=== PATIENT | male | born 1950 ===

== ENCOUNTER 2019-02-12 15:48 | Emergency (ER) | payer MEDICARE ==
[2019-02-12 15:53] VITALS: BP 146/75; PULSE 65; RESP 20; TEMP 97.8
--- NOTE | 2019-02-12 17:27 | XR ---
EXAMINATION TYPE: XR Hip Complete RT DATE OF EXAM: 02/12/2019 COMPARISON: NONE HISTORY: Back pain TECHNIQUE: 2 views FINDINGS: I see no fracture nor dislocation. Hip joint space is normal. Sacroiliac joint appears norm al. IMPRESSION: Negative right hip exam.
[2019-02-12] MEDS ORDERED: ACET/COD 300 MG/30 MG STARTER PACK 6 TAB BTL PO STA (17:29)
--- NOTE | 2019-02-12 18:30 | ED ---
Back Pain [facility] - General Chief Complaint: Back Pain/Injury Stated Complaint: back pain Time Seen by Provider: 02/12/19 16:26 Source: patient Limitations: no limitations - History of Present Illness Initial Comments: Patient is a 60-year-old male presents emergency Department with right sacral pain. Patient reports the pain started gradually approximately one month ago. Patient reports the pain originates in the right buttock and radiates posteriorly and anteriorly on the right leg. Patient reports pain is an 8 and is alleviated with rest and exacerbated with ambulation. Patient reports improvement in pain in sitting position and exacerbated with lying. Patient reports that he went to his primary care given Toradol IM and or pill take home. Patient denies any trauma to his lower back or right hip. Patient denies saddle paresthesias or urinary incontinence. Patient denies fevers, night sweats or unexplained recent weight loss. Patient denies nausea, vomiting, abdominal pain, urinary symptoms, headaches chest pain or chest tightness. - Related Data Home Medications Medication Instructions Recorded Confirmed Aspirin EC [Ecotrin Low Dose] 81 mg PO BID 09/12/15 02/12/19 Atorvastatin [Lipitor] 40 mg PO DAILY 09/12/15 02/12/19 Metoprolol Tartrate [Lopressor] 25 mg PO BID 09/12/15 02/12/19 Montelukast [Singulair] 10 mg PO HS 09/12/15 02/12/19 Spironolactone [Aldactone] 25 mg PO QAM 09/12/15 02/12/19 Amiodarone HCl [Cordarone] 100 mg PO BID 10/27/15 02/12/19 Levalbuterol Hfa Inhaler [Xopenex 1 puff INHALATION RT-Q6H PRN 07/17/17 02/12/19 Hfa Inhaler] Levalbuterol Nebulized [Xopenex 1.25 mg INHALATION RT-TID 07/17/17 02/12/19 Nebulized] Sacubitril/Valsartan [Entresto 24 1 tab PO BID 07/17/17 02/12/19 mg-26 mg Tablet] Acetaminophen Tab [Tylenol] 1,000 mg PO Q8H PRN 02/12/19 02/12/19 Ketorolac [Toradol] 10 mg PO Q8HR PRN 02/12/19 02/12/19 Mexiletine [Mexitil] 150 mg PO Q8H 02/12/19 02/12/19 predniSONE 5 mg PO MOWEFR 02/12/19 02/12/19 predniSONE 10 mg PO SUTUTHSA 02/12/19 02/12/19 Previous Rx's Medication Instructions Recorded Furosemide [Lasix] 40 mg PO DAILY #30 tab 07/21/17 Cyclobenzaprine [Flexeril] 5 mg PO TID PRN #15 tablet 02/12/19 Allergies Allergy/AdvReac Type Severity Reaction Status Date / Time acetaminophen [From [place]] Allergy Anaphylaxis Verified 02/12/19 16:48 hydrocodone [From [place]] Allergy Anaphylaxis Verified 02/12/19 16:48 ibuprofen Allergy Anaphylaxis Verified 02/12/19 16:48 Review of Systems ROS Statement: Those systems with pertinent positive or pertinent negative responses have been documented in the HPI. ROS Other: All systems not noted in ROS Statement are negative. Past Medical History Past Medical History: Asthma, COPD, Hyperlipidemia Additional Past Medical History / Comment(s): VTach, nonischemic cardiomyopathy, CHF, organized left ventricular apical clot, previous DVT ablation, asthma requiring intubation twice, BRAIN BLEED WHILE ON BLOOD THINNER RX 2009, cataracts bilaterally History of Any Multi-Drug Resistant Organisms: None Reported Past Surgical History: AICD, EPS, Pacemaker Additional Past Surgical History / Comment(s): 12/07/15 EPS wtih VT ablation. Other surgical hx: BRAIN SURGERY FOLLOWING BLEED. AICD/PACEMAKER, [facility]. generator change, Defibrilator testing Past Anesthesia/Blood Transfusion Reactions: No Reported Reaction Type of Cardiac Device: Permanent Pacemaker, AICD Device Placement Date:: 2005 implanted with gen change 2012 Past Psychological History: No Psychological Hx Reported Smoking Status: Former smoker Past Alcohol Use History: None Reported Past Drug Use History: None Reported - Past Family History Mother Family Medical History: No Reported History Additional Family Medical History / Comment(s): Mother at age 92 yrs. Father Family Medical History: No Reported History Additional Family Medical History / Comment(s): Father is healthy and 95 yrs old. General Exam Limitations: no limitations General appearance: alert, in no apparent distress Head exam: Present: atraumatic, normocephalic, normal inspection Eye exam: Present: normal appearance, PERRL, EOMI Pupils: Present: normal accommodation ENT exam: Present: normal exam, mucous membranes moist Neck exam: Present: normal inspection, full ROM Respiratory exam: Present: normal lung sounds bilaterally Cardiovascular Exam: Present: regular rate, normal rhythm, normal heart sounds GI/Abdominal exam: Present: soft. Absent: tenderness Extremities exam: Present: normal inspection, tenderness (Tenderness to palpation along the right buttock. Pain radiates anteriorly and posteriorly on the right leg with hip flexion.), normal capillary refill, other (+2 dorsalis pedis and posterior tibialis, bilaterally. Positive leg raise test.). Absent: full ROM (Limited due to pain and right leg) Back exam: Present: normal inspection, full ROM Neurological exam: Present: alert, oriented X3 Psychiatric exam: Present: normal affect, normal mood Skin exam: Present: warm, intact, normal color Course Vital Signs 02/12/19 15:50 Temperature 97.8 F Pulse Rate 65 Respiratory 20 Rate Blood Pressure 146/75 O2 Sat by Pulse 99 Oximetry Medical Decision Making - Medical Decision Making Patient is a 60-year-old male presents emergency Department with right sacral pain. X-ray of the right hip is negative for acute fracture or dislocations. Based on physical examination I do not suspect the patient to have any acute lower back pathologies. I gave the patient Tylenol 3 starter pack and after 1 dose he started feeling much better and was able to walk with only mild discomfort. Patient will be discharged with Flexeril. Patient advised to follow-up with orthopedics. Patient advised to return to emergency department if symptoms worsen. Case discussed physician. Disposition Clinical Impression: Low back pain Disposition: HOME SELF-CARE Condition: Stable Instructions (If sedation given, give patient instructions): Acute Low Back Pain (ED) Additional Instructions: Please take prescribed medication as directed. Please return to emergency department if symptoms worsen. Please follow-up with orthopedics. Prescriptions: Cyclobenzaprine [Flexeril] 5 mg PO TID PRN #15 tablet PRN Reason: Muscle Spasm Is patient prescribed a controlled substance at d/c from ED?: No Referrals: Alex Dominguez MD [Primary Care Provider] - 1-2 days Tomy Latham PAC [PHYSICIAN DBA DEVELOPER] - 1-2 days Robert Massey DO [Medical Doctor] - 1-2 days Saturnino Camilo DO [Doctor of Osteopathic Medicine] - 1-2 days Time of Disposition: 18:29
== END 2019-02-12 18:30 | disposition home or self-care (01) ==
LOC: EC 15:48
DX: M54.5 Low back pain (principal); J44.9 Chronic obstructive pulmonary disease, unspecified; E78.5 Hyperlipidemia, unspecified; I50.9 Heart failure, unspecified; Z79.82 Long term (current) use of aspirin; Z79.899 Other long term (current) drug therapy; Z79.51 Long term (current) use of inhaled steroids; Z88.5 Allergy status to narcotic agent; Z88.6 Allergy status to analgesic agent; Z95.0 Presence of cardiac pacemaker; Z86.718 Personal history of other venous thrombosis and embolism; Z87.891 Personal history of nicotine dependence
CPT/HCPCS: 73502; 99283

== ENCOUNTER → 2020-09-12 | Outpatient (CLI) | payer MEDICARE ==
[2020-09-12 14:15] LABS: Basophils % (A) 0 %; Eosinophils % (A) 0 %; HCT 41.5 % (39.0-53.0); HGB 13.7 gm/dL (13.0-17.5); Lymphocytes # (A) 1.4 k/uL (1.0-4.8); Lymphocytes % (A) 14 %; MCH 30.9 pg (25.0-35.0); MCHC 33.2 g/dL (31.0-37.0); MCV 93.3 fL (80.0-100.0); Mean Platelet Volume 8.1; Monocytes # (A) 0.3 k/uL (0-1.0); Monocytes % (A) 3 %; Neutrophils # (A) 8.2 k/uL (1.3-7.7); Neutrophils % (A) 81 %; Platelet Count 169 k/uL (150-450); RBC 4.44 m/uL (4.30-5.90); RDW 13.1 % (11.5-15.5); WBC 10.1 k/uL (3.8-10.6)
[2020-09-12 14:22] LABS: Total Eosinophil Count 40 #EOS/uL (150-300)
== END | disposition home or self-care (01) ==
LOC: LABWHC1 13:39
PROVIDERS: ATTEND Internal Medicine
DX: J45.909 Unspecified asthma, uncomplicated (principal)
CPT/HCPCS: 36415; 82785; 85008; 85025

== ENCOUNTER 2023-01-30 18:08 | Emergency (ER) | payer MEDICARE ==
[2023-01-30] MEDS ORDERED: SODIUM CHLORIDE 0.9% 1,000 ML IV STA (18:45)
--- NOTE | 2023-01-30 18:46 | ED ---
Weakness HPI - General Chief complaint: Recheck/Abnormal Lab/Rx Stated complaint: diarrhea, dizziness - sent by urgent care Time Seen by Provider: 01/30/23 18:45 Source: patient, RN notes reviewed, old records reviewed, Caregiver Mode of arrival: ambulatory Limitations: no limitations - History of Present Illness Initial comments: This is a 72-year-old male who presents today for evaluation of multiple complaints. Patient himself complains of loose bowel movements 3-4 times a day and at times he cannot control as well as. Family states patient is dizzy lightheaded sometimes off-balance. This is definitely worse when he gets from positions of sitting to standing. No travel history no sick contacts no other complaints. Patient denies headache chest pain shortness breath or abdominal pain. No prior history of similar issue MD Complaint: generalized weakness, numbness, tingling -: days(s) Location: generalized Severity: severe Severity scale (1-10): 8 Quality: tingling, numbness Consistency: constant Improves with: none Worsens with: none Context: recent illness, history of similar Associated Symptoms: denies other symptoms - Related Data Home Medications Medication Instructions Recorded Confirmed Aspirin EC [Ecotrin Low Dose] 81 mg PO BID 09/12/15 01/30/23 Atorvastatin [Lipitor] 40 mg PO DAILY 09/12/15 01/30/23 Montelukast [Singulair] 10 mg PO HS 09/12/15 01/30/23 Spironolactone [Aldactone] 25 mg PO DAILY 09/12/15 01/30/23 Amiodarone HCl [Cordarone] 100 mg PO DAILY 10/27/15 01/30/23 Levalbuterol Hfa Inhaler [Xopenex 1 puff INHALATION RT-Q6H PRN 07/17/17 01/30/23 Hfa Inhaler] Levalbuterol Nebulized [Xopenex 1.25 mg INHALATION RT-TID 07/17/17 01/30/23 Nebulized] Sacubitril/Valsartan [Entresto 24 1 tab PO BID 07/17/17 01/30/23 mg-26 mg Tablet] predniSONE 5 mg PO DAILY 02/12/19 01/30/23 Metoprolol Succinate (ER) [Toprol 50 mg PO DAILY 01/30/23 01/30/23 Xl] Mexiletine HCl 200 mg PO Q8H 01/30/23 01/30/23 Previous Rx's Medication Instructions Recorded Furosemide [Lasix] 40 mg PO DAILY #30 tab 07/21/17 Allergies Allergy/AdvReac Type Severity Reaction Status Date / Time acetaminophen [From [place]] Allergy Anaphylaxis Verified 01/30/23 21:43 hydrocodone [From [place]] Allergy Anaphylaxis Verified 01/30/23 21:43 ibuprofen Allergy Anaphylaxis Verified 01/30/23 21:43 Review of Systems ROS Statement: Those systems with pertinent positive or pertinent negative responses have been documented in the HPI. ROS Other: All systems not noted in ROS Statement are negative. Past Medical History Past Medical History: Asthma, COPD, Hyperlipidemia Additional Past Medical History / Comment(s): VTach, nonischemic cardiomyopathy, CHF, organized left ventricular apical clot, previous DVT ablation, asthma requiring intubation twice, BRAIN BLEED WHILE ON BLOOD THINNER RX 2009, c ataracts bilaterally History of Any Multi-Drug Resistant Organisms: None Reported Past Surgical History: AICD, EPS, Pacemaker Additional Past Surgical History / Comment(s): 12/07/15 EPS wtih VT ablation. Other surgical hx: BRAIN SURGERY FOLLOWING BLEED. AICD/PACEMAKER, [facility]. generator change, Defibrilator testing Past Anesthesia/Blood Transfusion Reactions: No Reported Reaction Type of Cardiac Device: Permanent Pacemaker, AICD Device Placement Date:: 2005 implanted with gen change 2012 Past Psychological History: No Psychological Hx Reported Smoking Status: Never smoker Past Alcohol Use History: None Reported Past Drug Use History: None Reported - Past Family History Mother Family Medical History: No Reported History Additional Family Medical History / Comment(s): Mother at age 92 yrs. Father Family Medical History: No Reported History Additional Family Medical History / Comment(s): Father is healthy and 95 yrs old. General Exam Limitations: no limitations General appearance: alert, in no apparent distress Head exam: Present: atraumatic, normocephalic, normal inspection Eye exam: Present: normal appearance, PERRL, EOMI. Absent: scleral icterus, conjunctival injection, periorbital swelling ENT exam: Present: normal exam, mucous membranes moist Neck exam: Present: normal inspection. Absent: tenderness, meningismus, lymphadenopathy Respiratory exam: Present: normal lung sounds bilaterally. Absent: respiratory distress, wheezes, rales, rhonchi, stridor Cardiovascular Exam: Present: regular rate, normal rhythm, normal heart sounds. Absent: systolic murmur, diastolic murmur, rubs, gallop, clicks GI/Abdominal exam: Present: soft, normal bowel sounds. Absent: distended, tenderness, guarding, rebound, rigid Extremities exam: Present: normal inspection, full ROM, normal capillary refill. Absent: tenderness, pedal edema, joint swelling, calf tenderness Back exam: Present: normal inspection Neurological exam: Present: alert, oriented X3, CN II-XII intact Psychiatric exam: Present: normal affect, normal mood Skin exam: Present: warm, dry, intact, normal color. Absent: rash Course Vital Signs 01/30/23 01/30/23 01/30/23 18:28 19:21 19:30 Temperature 98 F Pulse Rate 62 58 L Respiratory 18 16 18 Rate Blood Pressure 108/69 O2 Sat by Pulse 98 98 Oximetry 01/30/23 01/30/23 01/30/23 20:00 20:30 21:00 Temperature Pulse Rate 56 L 55 L Respiratory 12 11 L Rate Blood Pressure 119/65 142/81 O2 Sat by Pulse 99 99 Oximetry 01/30/23 01/30/23 01/30/23 21:30 21:46 21:48 Temperature 98.9 F Pulse Rate 57 L 60 Respiratory 18 14 Rate Blood Pressure 121/76 O2 Sat by Pulse 97 98 Oximetry - Reevaluation(s) Reevaluation #1: 01/31/23 19:51 Medical records reviewed Reevaluation #2: 01/31/23 19:51 Patient symptoms are improving here in the ER with hydration Reevaluation #3: 01/31/23 19:51 Patient informed results questions answered Reevaluation #4: 01/31/23 19:51 Was pt. sent in by a medical professional or institution? @ -no Did you speak to anyone other than the patient for history? @ -Yes patient's daughter is at bedside today patient's diarrhea has been persistent for weeks now and she is concern for upcoming colonoscopy Did you review nursing and triage notes? @ -agree Were old charts reviewed? @ -no Differential Diagnosis? @ -prior EKG interpreted by me (3pts min.)? @ -yes X-rays interpreted by me (1pt min.)? @ -no CT interpreted by me (1pt min.)? @ -yes U/S interpreted by me (1pt. min.)? @ -no What testing was considered but not performed? (CT, X-rays, U/S, labs)? Why? @ -no What meds were considered but not given? Why? @ -no Did you discuss the management of the patient with other professionals? @ -no Did you reconcile home meds? @ -no Was smoking cessation discussed for >3mins.? @ -no Was critical care preformed (if so, how long)? @ -no Were there social determinants of health that impacted care today? How? (Homelessness, low income, unemployed, alcoholism, drug addiction, transportation, low edu. Level, literacy, decrease access to med. care, long-term, rehab)? @ -no Was there de-escalation of care discussed even if they declined? (Discuss DNR or withdrawal of care, Hospice)? @ -no What co-morbidities impacted this encounter? (DM, HTN, Smoking, COPD, CAD, Cancer, CVA, Hep., AIDS, mental health diagnosis, sleep apnea, morbid obesity)? @ -none Was patient admitted / discharged? @ -72 male to the emergency department for evaluation of dizziness weakness lightheadedness, loose bowel movements and otherwise not feeling well. Throat ER stay patient feels improved, asking to be discharged home CT is here because his family him calm. Patient without complaint of headache chest pain shortness breath or abdominal pain. Discharged Undiagnosed new problem with uncertain prognosis? @ -no Drug Therapy requiring intensive monitoring for toxicity (Heparin, Nitro, Insulin, Cardizem)? @ -no Were any procedures done? @ -no Diagnosis/symptom? @ -Vertigo, weakness, dizziness, diarrhea Acute, or Chronic, or Acute on Chronic? @ -Acute Uncomplicated (without systemic symptoms) or Complicated (systemic symptoms)? @ -complicated Side effects of treatment? @ -no Exacerbation, Progression, or Severe Exacerbation] @ -no Poses a threat to life or bodily function? @ -Yes with stroke or CVA Reevaluation #5: 01/31/23 19:52 Differential Dizziness: Benign paroxysmal positional Vertigo, Menieres disease, otitis media, acoustic neuroma, vertebrobasilar insufficiency, cerebellar stroke, encephalitis, hypovolemic, arrhythmia, coronary artery syndrome, anemia, this is not meant to be an all-inclusive list Differential Weakness: Hypoglycemia, shock, sepsis, hyponatremia, anemia, infection, [place], ETOH, adverse medicine reaction, overdose, stroke, this is not meant to be an all-inclusive list. EKG Findings - EKG Comments: EKG Findings:: EKG shows bradycardia 55 IL 143 QRS 88 QTc 422 Medical Decision Making - Medical Decision Making 72 male here with vertiginous type symptoms numbness and dizziness and 3-4 loose bowel movements today, patient will trial outpatient Lomotil, feeling improved able to ambulate successfully without difficulty here in the ER, patient feels good and can be discharged home - Lab Data Result diagrams: 01/30/23 19:18 01/30/23 19:18 Lab Results 01/30/23 01/30/23 01/30/23 Range/Units 19:18 19:18 19:18 WBC 7.6 (3.8-10.6) k/uL RBC 4.70 (4.30-5.90) m/uL Hgb 14.7 (13.0-17.5) gm/dL Hct 44.9 (39.0-53.0) % MCV 95.4 (80.0-100.0) fL MCH 31.2 (25.0-35.0) pg MCHC 32.7 (31.0-37.0) g/dL RDW 14.0 (11.5-15.5) % Plt Count 187 (150-450) k/uL MPV 8.3 Neutrophils % 70 % Lymphocytes % 21 % Monocytes % 7 % Eosinophils % 0 % Basophils % 0 % Neutrophils # 5.3 (1.3-7.7) k/uL Lymphocytes # 1.6 (1.0-4.8) k/uL Monocytes # 0.5 (0-1.0) k/uL Eosinophils # 0.0 (0-0.7) k/uL Basophils # 0.0 (0-0.2) k/uL PT 10.1 (9.0-12.0) sec INR 0.9 (<1.2) APTT 22.4 (22.0-30.0) sec Sodium (137-145) mmol/L Potassium (3.5-5.1) mmol/L Chloride (98-107) mmol/L Carbon Dioxide (22-30) mmol/L Anion Gap mmol/L BUN (9-20) mg/dL Creatinine (0.66-1.25) mg/dL Est GFR (CKD-EPI)AfAm (>60 ml/min/1.73 sqM) Est GFR (CKD-EPI)NonAf (>60 ml/min/1.73 sqM) Glucose (74-99) mg/dL Plasma Lactic Acid Melvin (0.7-2.0) mmol/L Calcium (8.4-10.2) mg/dL Phosphorus (2.5-4.5) mg/dL Magnesium (1.6-2.3) mg/dL Total Bilirubin (0.2-1.3) mg/dL AST (17-59) U/L ALT (4-49) U/L Alkaline Phosphatase (38-126) U/L Troponin I (0.000-0.034) ng/mL NT-Pro-B Natriuret Pep pg/mL Total Protein (6.3-8.2) g/dL Albumin (3.5-5.0) g/dL Urine Color Yellow Urine Appearance Clear (Clear) Urine pH 6.0 (5.0-8.0) Ur Specific [place] 1.019 (1.001-1.035) Urine Protein Negative (Negative) Urine Glucose (UA) Negative (Negative) Urine Ketones Negative (Negative) Urine Blood Negative (Negative) Urine Nitrite Negative (Negative) Urine Bilirubin Negative (Negative) Urine Urobilinogen 2.0 (<2.0) mg/dL Ur Leukocyte Esterase Small H (Negative) Urine RBC 1 (0-5) /hpf Urine WBC 3 (0-5) /hpf Hyaline Casts 1 (0-2) /lpf Urine Mucus Rare H (None) /hpf 01/30/23 01/30/23 01/30/23 Range/Units 19:18 19:18 19:18 WBC (3.8-10.6) k/uL RBC (4.30-5.90) m/uL Hgb (13.0-17.5) gm/dL Hct (39.0-53.0) % MCV (80.0-100.0) fL MCH (25.0-35.0) pg MCHC (31.0-37.0) g/dL RDW (11.5-15.5) % Plt Count (150-450) k/uL MPV Neutrophils % % Lymphocytes % % Monocytes % % Eosinophils % % Basophils % % Neutrophils # (1.3-7.7) k/uL Lymphocytes # (1.0-4.8) k/uL Monocytes # (0-1.0) k/uL Eosinophils # (0-0.7) k/uL Basophils # (0-0.2) k/uL PT (9.0-12.0) sec INR (<1.2) APTT (22.0-30.0) sec Sodium 139 (137-145) mmol/L Potassium 4.4 (3.5-5.1) mmol/L Chloride 102 (98-107) mmol/L Carbon Dioxide 31 H (22-30) mmol/L Anion Gap 6 mmol/L BUN 19 (9-20) mg/dL Creatinine 1.02 (0.66-1.25) mg/dL Est GFR (CKD-EPI)AfAm 85 (>60 ml/min/1.73 sqM) Est GFR (CKD-EPI)NonAf 73 (>60 ml/min/1.73 sqM) Glucose 97 (74-99) mg/dL Plasma Lactic Acid Melvin 1.5 (0.7-2.0) mmol/L Calcium 9.2 (8.4-10.2) mg/dL Phosphorus 3.8 (2.5-4.5) mg/dL Magnesium 2.1 (1.6-2.3) mg/dL Total Bilirubin 0.8 (0.2-1.3) mg/dL AST 20 (17-59) U/L ALT 19 (4-49) U/L Alkaline Phosphatase 62 (38-126) U/L Troponin I <0.012 (0.000-0.034) ng/mL NT-Pro-B Natriuret Pep pg/mL Total Protein 6.5 (6.3-8.2) g/dL Albumin 4.2 (3.5-5.0) g/dL Urine Color Urine Appearance (Clear) Urine pH (5.0-8.0) Ur Specific [place] (1.001-1.035) Urine Protein (Negative) Urine Glucose (UA) (Negative) Urine Ketones (Negative) Urine Blood (Negative) Urine Nitrite (Negative) Urine Bilirubin (Negative) Urine Urobilinogen (<2.0) mg/dL Ur Leukocyte Esterase (Negative) Urine RBC (0-5) /hpf Urine WBC (0-5) /hpf Hyaline Casts (0-2) /lpf Urine Mucus (None) /hpf 01/30/23 Range/Units 19:18 WBC (3.8-10.6) k/uL RBC (4.30-5.90) m/uL Hgb (13.0-17.5) gm/dL Hct (39.0-53.0) % MCV (80.0-100.0) fL MCH (25.0-35.0) pg MCHC (31.0-37.0) g/dL RDW (11.5-15.5) % Plt Count (150-450) k/uL MPV Neutrophils % % Lymphocytes % % Monocytes % % Eosinophils % % Basophils % % Neutrophils # (1.3-7.7) k/uL Lymphocytes # (1.0-4.8) k/uL Monocytes # (0-1.0) k/uL Eosinophils # (0-0.7) k/uL Basophils # (0-0.2) k/uL PT (9.0-12.0) sec INR (<1.2) APTT (22.0-30.0) sec Sodium (137-145) mmol/L Potassium (3.5-5.1) mmol/L Chloride (98-107) mmol/L Carbon Dioxide (22-30) mmol/L Anion Gap mmol/L BUN (9-20) mg/dL Creatinine (0.66-1.25) mg/dL Est GFR (CKD-EPI)AfAm (>60 ml/min/1.73 sqM) Est GFR (CKD-EPI)NonAf (>60 ml/min/1.73 sqM) Glucose (74-99) mg/dL Plasma Lactic Acid Melvin (0.7-2.0) mmol/L Calcium (8.4-10.2) mg/dL Phosphorus (2.5-4.5) mg/dL Magnesium (1.6-2.3) mg/dL Total Bilirubin (0.2-1.3) mg/dL AST (17-59) U/L ALT (4-49) U/L Alkaline Phosphatase (38-126) U/L Troponin I (0.000-0.034) ng/mL NT-Pro-B Natriuret Pep 1940 pg/mL Total Protein (6.3-8.2) g/dL Albumin (3.5-5.0) g/dL Urine Color Urine Appearance (Clear) Urine pH (5.0-8.0) Ur Specific [place] (1.001-1.035) Urine Protein (Negative) Urine Glucose (UA) (Negative) Urine Ketones (Negative) Urine Blood (Negative) Urine Nitrite (Negative) Urine Bilirubin (Negative) Urine Urobilinogen (<2.0) mg/dL Ur Leukocyte Esterase (Negative) Urine RBC (0-5) /hpf Urine WBC (0-5) /hpf Hyaline Casts (0-2) /lpf Urine Mucus (None) /hpf - EKG Data -: EKG Interpreted by Me - Radiology Data Radiology results: report reviewed (CT brain is negative for acute disease interpreted by me), image reviewed Disposition Clinical Impression: Vertigo, BPPV (benign paroxysmal positional vertigo), Dizziness, Diarrhea, Bradycardia, Arrhythmia Disposition: HOME SELF-CARE Condition: Good Instructions (If sedation given, give patient instructions): Vertigo (ED), Benign Paroxysmal Positional Vertigo (ED) Is patient prescribed a controlled substance at d/c from ED?: No Referrals: Alex Dominguez MD [Primary Care Provider] - 1-2 days Time of Disposition: 21:00
[2023-01-30 19:31] LABS: Basophils % (A) 0 %; Eosinophils % (A) 0 %; HCT 44.9 % (39.0-53.0); HGB 14.7 gm/dL (13.0-17.5); Lymphocytes # (A) 1.6 k/uL (1.0-4.8); Lymphocytes % (A) 21 %; MCH 31.2 pg (25.0-35.0); MCHC 32.7 g/dL (31.0-37.0); MCV 95.4 fL (80.0-100.0); Mean Platelet Volume 8.3; Monocytes # (A) 0.5 k/uL (0-1.0); Monocytes % (A) 7 %; Neutrophils # (A) 5.3 k/uL (1.3-7.7); Neutrophils % (A) 70 %; Platelet Count 187 k/uL (150-450); WBC 7.6 k/uL (3.8-10.6)
[2023-01-30 19:37] LABS: Appearance,Urine Clear (Clear); Bilirubin,Urine Negative (Negative); Blood,Urine Negative (Negative); Color,Urine Yellow; Glucose,Urine (UA) Negative (Negative); Hyaline Casts,Urine 1 /lpf (0-2); Ketones,Urine Negative (Negative); Leukocyte Esterase,Urine Small (Negative); Mucus,Urine Rare /hpf; Nitrite,Urine Negative (Negative); Protein,Urine Negative (Negative); RBC,Urine 1 /hpf (0-5); Specific Gravity,Urine 1.019 (1.001-1.035); WBC,Urine 3 /hpf (0-5)
[2023-01-30 19:44] LABS: INR 0.9 (<1.2); Partial Thromboplastin Time 22.4 sec (22.0-30.0); Prothrombin Time 10.1 sec (9.0-12.0)
[2023-01-30 19:46] LABS: ALT 19 U/L (4-49); AST 20 U/L (17-59); African American GFR (CKD) 85 (>60 ml/min/1.73 sqM); Albumin 4.2 g/dL (3.5-5.0); Alkaline Phosphatase 62 U/L (38-126); Anion Gap 6 mmol/L; Blood Urea Nitrogen 19 mg/dL (9-20); Calcium 9.2 mg/dL (8.4-10.2); Carbon Dioxide 31 mmol/L (22-30); Chloride 102 mmol/L (98-107); Glucose 97 mg/dL (74-99); Magnesium 2.1 mg/dL (1.6-2.3); Non-African American GFR(CKD) 73 (>60 ml/min/1.73 sqM); Phosphorus 3.8 mg/dL (2.5-4.5); Potassium 4.4 mmol/L (3.5-5.1); Sodium 139 mmol/L (137-145); Total Bilirubin 0.8 mg/dL (0.2-1.3); Total Protein 6.5 g/dL (6.3-8.2)
--- NOTE | 2023-01-30 20:26 | CT ---
EXAMINATION TYPE: CT brain wo con CT DLP: 1276.4 mGycm, Automated exposure control for dose reduction was used. DATE OF EXAM: 01/30/2023 8:13 PM COMPARISON: 05/06/2011. CLINICAL INDICATION:Male, 72 years old with history of vertigo, Vertigo TECHNIQUE: Brain: Axial CT images of the brain were obtained with coronal and sagittal reformats created and rev iewed. Contrast used: None. Oral contrast used: None. FINDINGS: Brain: Extra-axial spaces: No abnormal extra-axial fluid collections. Ventricular system: Within normal limits Cerebral parenchyma: Remote injury to the left frontal lobe suggested with loss of contreras-white differe ntiation a small area of cortex. No acute intraparenchymal hemorrhage or mass effect. The contreras-white junction is well differentiated. Cerebellum: Unremarkable. Mass effect: No evidence of midline shift. Intracranial vasculature: Atherosclerotic calcifications of the intracranial vessels. Soft tissues: Normal. Calvarium/osseous structures: No depressed skull fracture. Craniotomy sites bilaterally. Paranasal sinuses and mastoid air cells: Mild scattered paranasal sinus disease. Visualized orbits: Bilateral aphakia IMPRESSION: 1. No acute intracranial process. 2. White Matter changes in the left frontal lobe likely secondary to remote injury. Consider follow- up MRI as clinically warranted.
[2023-01-30] MEDS ORDERED: DIPHENOX-ATROP 2.5-0.025 MG 1 EACH TAB PO STA (21:37)
[2023-01-30] MEDS ORDERED: DIPHENOX-ATROP STARTER PACK 8 TAB BTL PO STA (21:37)
[2023-01-30 21:47] VITALS: TEMP 98.9
[2023-01-30 21:49] VITALS: BP 121/76; PULSE 60; RESP 14
== END 2023-01-30 22:06 | disposition home or self-care (01) ==
LOC: EC 18:08
DX: H81.10 Benign paroxysmal vertigo, unspecified ear (principal); R19.7 Diarrhea, unspecified; I49.9 Cardiac arrhythmia, unspecified; J44.9 Chronic obstructive pulmonary disease, unspecified; E78.5 Hyperlipidemia, unspecified; Z79.52 Long term (current) use of systemic steroids; Z79.82 Long term (current) use of aspirin; Z79.899 Other long term (current) drug therapy; Z88.5 Allergy status to narcotic agent; Z88.8 Allergy status to other drugs, medicaments and biological substances
CPT/HCPCS: 36415; 70450; 80053; 81001; 83605; 83735; 83880; 84100; 84484; 85025; 85610; 85730; 93005; 96360; 99284

== ENCOUNTER 2023-02-11 06:15 | Day surgery (SDC) | payer MEDICARE ==
[~2023-02-11 06:15] MED LIST: SODIUM CHLORIDE 0.9% 1,000 ML IV SCH
[2023-02-11] MEDS ORDERED: SODIUM CHLORIDE 0.9% 500 ML 500 ML IV ONE (06:59)
[2023-02-11] MEDS ORDERED: MD COMMUNICATION TO PHARMACY 1 EACH MISC PO PRN (07:01)
[2023-02-11 07:06] VITALS: BP 147/65; PULSE 60; RESP 22; TEMP 98
[2023-02-11] MEDS ORDERED: ALBUTEROL HFA INHALER INHALATION ONE (07:15)
[2023-02-11] MEDS ORDERED: IOPAMIDOL-370 100ML BTL INJ ONE (07:17)
--- NOTE | 2023-02-11 07:53 | P.EPPROC ---
- EP Procedure Note Electrophysiology Procedure Note: Diagnosis Nonischemic cardio myopathy Stable class I CHF IVCD Dual-chamber ICD in situ, at [facility] Dual coil RIATA ICD lead on advisory Procedure Cinefluoroscopy of the leads was performed Atrial lead, active fix, in the right atrial appendage. No fractures or breaks Dual coil [employer] medical ICD lead shows a very small segment of externalization which is more prominent than the previous evaluation The extent of externalization is mild and at that heel within the right atrium Left upper extremity venogram performed. 15 mL every dye injection the left arm Left upper extremity venogram shows mild stenosis with bridging collaterals Detailed discussion with the patient Device is at [facility] Will plan a dual-chamber ICD generator change and evaluate the Riata lead to see if a new ICD lead needs to be implanted Patient has an IVCD but very stable heart failure class I Patient does not want any new leads I explained to him that if the ICD lead shows evidence of deterioration intraoperatively I may make a decision to implant a new ICD lead in that situation It is quite likely that implantation of a new lead will result in complete occlusion of this vein
== END 2023-02-11 07:50 | disposition home or self-care (01) ==
LOC: CATHEP 06:15
PROVIDERS: ATTEND Internal Medicine Clinical Cardiac Electrophysiology
DX: I42.8 Other cardiomyopathies (principal); I87.1 Compression of vein; I13.0 Hypertensive heart and chronic kidney disease with heart failure and stage 1 through stage 4 chronic kidney disease, or unspecified chronic kidney disease; I50.20 Unspecified systolic (congestive) heart failure; N18.9 Chronic kidney disease, unspecified; E78.5 Hyperlipidemia, unspecified; J44.9 Chronic obstructive pulmonary disease, unspecified; F17.210 Nicotine dependence, cigarettes, uncomplicated; I47.1 Supraventricular tachycardia; I44.7 Left bundle-branch block, unspecified; I25.10 Atherosclerotic heart disease of native coronary artery without angina pectoris; Z79.82 Long term (current) use of aspirin; Z79.52 Long term (current) use of systemic steroids; Z79.51 Long term (current) use of inhaled steroids; Z79.899 Other long term (current) drug therapy; Z88.6 Allergy status to analgesic agent; Z88.8 Allergy status to other drugs, medicaments and biological substances
CPT/HCPCS: 75820; 76000; 76120; Q9967

== ENCOUNTER 2023-02-24 06:19 | Inpatient (IN) | payer MEDICARE ==
--- NOTE | 2023-02-24 06:25 | ED ---
Arrhythmia/Palpitations HPI - General Stated Complaint: Pacemaker Time Seen by Provider: 02/24/23 06:21 Source: patient, EMS Mode of arrival: EMS Limitations: no limitations - History of Present Illness Initial Comments: This patient is a 72-year-old man who comes by ambulance to have evaluation for his defibrillator shocking him. He states that he has been taking a colon prep over the course of the night to have colonoscopy today. He states that he had just been at rest around 5:30 this morning when the defibrillator shocked him. It has continued to fire over the course of the next hours, over a dozen times. He states that he will get a lightheaded feeling just prior to the device firing. He is not having chest pain, dyspnea, diaphoresis, nausea or vomiting. MD Complaint: rapid heart beat Onset/Timin -: hour(s) Context: occurred during rest, AICD discharge Arrhythmia History: AICD Associated Symptoms: denies other symptoms - Related Data Home Medications Medication Instructions Recorded Confirmed Montelukast [Singulair] 10 mg PO HS 09/12/15 02/24/23 Spironolactone [Aldactone] 25 mg PO DAILY 09/12/15 02/24/23 Levalbuterol Hfa Inhaler [Xopenex 1 puff INHALATION RT-Q6H PRN 07/17/17 02/24/23 Hfa Inhaler] Levalbuterol Nebulized [Xopenex 1.25 mg INHALATION RT-TID 07/17/17 02/24/23 Nebulized] Sacubitril/Valsartan [Entresto 24 1 tab PO BID 07/17/17 02/24/23 mg-26 mg Tablet] predniSONE 5 mg PO DAILY 02/12/19 02/24/23 Mexiletine HCl 200 mg PO Q8H 01/30/23 02/24/23 Diphenox-Atrop 2.5-0.025 mg 1 tab PO DAILY PRN 02/24/23 02/24/23 [Lomotil] Previous Rx's Medication Instructions Recorded Furosemide [Lasix] 40 mg PO DAILY #30 tab 07/21/17 Amiodarone [Cordarone] 400 mg PO TID #100 tab 02/27/23 Aspirin EC [Ecotrin Low Dose] 81 mg PO DAILY #90 tab 07/06/23 Atorvastatin [Lipitor] 80 mg PO DAILY #90 tab 02/27/23 Ezetimibe [Zetia] 10 mg PO DAILY #90 tab 02/27/23 Metoprolol Succinate (ER) [Toprol 75 mg PO DAILY #145 tab 02/27/23 XL] Ticagrelor [Brilinta] 90 mg PO BID #180 tab 02/27/23 Aspirin 81 mg PO BID tab 02/28/23 Atorvastatin [Lipitor] 80 mg PO HS 30 Days #30 tab 02/28/23 Metoprolol Succinate (ER) [Toprol 75 mg PO DAILY@1200 30 Days #90 tab 02/28/23 XL] Ticagrelor [Brilinta] 90 mg PO BID tab 02/28/23 Allergies Allergy/AdvReac Type Severity Reaction Status Date / Time hydrocodone [From [place]] Allergy Anaphylaxis Verified 02/24/23 07:18 ibuprofen Allergy Anaphylaxis Verified 02/24/23 07:18 Review of Systems ROS Statement: Those systems with pertinent positive or pertinent negative responses have been documented in the HPI. ROS Other: All systems not noted in ROS Statement are negative. Constitutional: Denies: fever, chills Respiratory: Denies: cough, dyspnea Cardiovascular: Denies: chest pain, palpitations Gastrointestinal: Denies: abdominal pain, nausea, vomiting Genitourinary: Denies: dysuria, hematuria Musculoskeletal: Denies: back pain Skin: Denies: rash Neurological: Denies: headache, weakness, numbness Past Medical History Past Medical History: Asthma, COPD, Hyperlipidemia Additional Past Medical History / Comment(s): VTach, nonischemic cardiomyopathy, CHF, organized left ventricular apical clot, previous DVT ablation, asthma requiring intubation twice, BRAIN BLEED WHILE ON BLOOD THINNER RX 2009, cataracts bilaterally History of Any Multi-Drug Resistant Organisms: None Reported Past Surgical History: AICD, EPS, Pacemaker Additional Past Surgical History / Comment(s): 12/07/15 EPS wtih VT ablation. Other surgical hx: BRAIN SURGERY FOLLOWING BLEED. AICD/PACEMAKER, [facility]. generator change, Defibrilator testing Past Anesthesia/Blood Transfusion Reactions: No Reported Reaction Type of Cardiac Device: Permanent Pacemaker, AICD Device Placement Date:: 2005 implanted with gen change 2012 Past Psychological History: No Psychological Hx Reported Smoking Status: Never smoker Past Alcohol Use History: None Reported Past Drug Use History: None Reported - Past Family History Mother Family Medical History: No Reported History Additional Family Medical History / Comment(s): Mother at age 92 yrs. Father Family Medical History: No Reported History Additional Family Medical History / Comment(s): Father is healthy and 95 yrs old. General Exam General appearance: alert, in no apparent distress Head exam: Present: atraumatic, normocephalic Eye exam: Present: normal appearance. Absent: scleral icterus, conjunctival injection Neck exam: Present: normal inspection Respiratory exam: Present: normal lung sounds bilaterally Cardiovascular Exam: Present: tachycardia, normal heart sounds GI/Abdominal exam: Present: soft. Absent: distended, tenderness, guarding, rebound, rigid, mass Extremities exam: Present: normal inspection, normal capillary refill. Absent: pedal edema, calf tenderness Back exam: Present: normal inspection. Absent: CVA tenderness (R), CVA tenderness (L) Neurological exam: Present: alert Skin exam: Present: warm, dry, intact, mottled. Absent: rash Course Vital Signs 02/24/23 02/24/23 02/24/23 06:20 06:48 06:58 Temperature 97 F L Pulse Rate 149 H 142 H 92 Pulse Rate [ 142 H Apical] Respiratory 22 18 18 Rate Blood Pressure 71/44 81/55 86/51 Blood Pressure [Left Arm] O2 Sat by Pulse 97 95 98 Oximetry 02/24/23 02/24/23 09:14 10:42 Temperature 98.3 F Pulse Rate 80 Pulse Rate [ Apical] Respiratory 18 17 Rate Blood Pressure 107/63 Blood Pressure 129/57 [Left Arm] O2 Sat by Pulse 100 100 Oximetry EKG Findings - EKG Comments: EKG Findings:: The 12-lead ECG shows what appears to be a wide complex tachycardia with a regular rhythm at 1 50 bpm suspected ventricular tachycardia. - EKG Results: EKG: interpreted by [facility] EKG shows: ventricular tachycardia (Rate 150 bpm) Medical Decision Making - Medical Decision Making This patient is 72-year-old man arrived by ambulance to evaluation after his defibrillator had shocked him a number of times. He is brought directly to the resuscitation room where ACLS protocol continues. The patient had studies ordered. The ECG appears show wide complex rhythm interpreted as ventricular tachycardia and the patient receives medication to treat the rhythm. I discussed case with cardiology and also subsequently with the admitting physician. Was pt. sent in by a medical professional or institution (TAMAR Jay, [employer], urgent care, hospital, or alf...) When possible be specific @ -[No] Did you speak to anyone other than the patient for history (EMS, parent, family, police, friend...)? What history was obtained from this source @ -[EMS did give additional history Did you review nursing and triage notes (agree or disagree)? Why? @ -[I reviewed and agree with nursing and triage notes] Were old charts reviewed (outside hosp., previous admission, EMS record, old EKG, old radiological studies, urgent care reports/EKG's, alf records)? Report findings @ -[old charts were reviewed] Differential Diagnosis (chest pain, altered mental status, abdominal pain women, abdominal pain men, vaginal bleeding, weakness, fever, dyspnea, syncope, headache, dizziness, GI bleed, back pain, seizure, CVA, palpatations, mental health, musculoskeletal)? @ -Differential Chest Pain: Stable Angina, Unstable Angina, STEMI, NSTEMI Aortic Dissection, Pneumothorax, Musculoskeletal, Esophageal Spasm GERD, Cholecystitis, Pancreatitis, Zoster, this is not meant to be an all-inclusive list. EKG interpreted by me (3pts min.). @ -[As above] X-rays interpreted by me (1pt min.). @ -[As above CT interpreted by me (1pt min.). @ -[None done] U/S interpreted by me (1pt. min.). @ -[None done] What testing was considered but not performed or refused? (CT, X-rays, U/S, labs)? Why? @ -[None] What meds were considered but not given or refused? Why? @ -[None] Did you discuss the management of the patient with other professionals (professionals i.e. TAMAR Jay, [employer], lab, RT, psych nurse, social work administrator, [employer], teacher, special officer, case technician)? Give summary @ -[As above Was smoking cessation discussed for >3mins.? @ -[No] Was critical care preformed (if so, how long)? @ -[Yes, 40 minutes Were there social determinants of health that impacted care today? How? (Homelessness, low income, unemployed, alcoholism, drug addiction, tr ansportation, low edu. Level, literacy, decrease access to med. care, halfway, rehab)? @ -[No] Was there de-escalation of care discussed even if they declined (Discuss DNR or withdrawal of care, Hospice)? DNR status @ -[No] What co-morbidities impacted this encounter? (DM, HTN, Smoking, COPD, CAD, Cancer, CVA, ARF, Chemo, Hep., AIDS, mental health diagnosis, sleep apnea, morbid obesity)? @ -[Cardiomyopathy Was patient admitted / discharged? Hospital course, mention meds given and rout e, prescriptions, significant lab abnormalities, going to OR and other pertinent info. @ -[Patient admitted Undiagnosed new problem with uncertain prognosis? @ -[No] Drug Therapy requiring intensive monitoring for toxicity (Heparin, Nitro, Insulin, Cardizem)? @ -[No] Were any procedures done? @ -[No] Diagnosis/symptom? @ - AICD discharge Ventricular tachycardia Elevated troponin Acute kidney injury Acute, or Chronic, or Acute on Chronic? @ -[Acute Uncomplicated (without systemic symptoms) or Complicated (systemic symptoms)? @ -[default] Side effects of treatment? @ -[No] Exacerbation, Progression, or Severe Exacerbation? @ -[No] Poses a threat to life or bodily function? How? (Chest pain, [place], [place], pneumonia, PE, COPD, DKA, ARF, appy, cholecystitis, CVA, Diverticulitis, Homicidal, Suicidal, threat to staff... and all critical care pts) @ -[Untreated ventricular tachycardia may lead to further disordered rhythm and cardiac arrest - Lab Data Result diagrams: 02/26/23 10:42 02/27/23 11:27 Lab Results 02/24/23 02/24/23 02/24/23 Range/Units 06:30 06:30 06:30 WBC 14.7 H (3.8-10.6) k/uL RBC 4.31 (4.30-5.90) m/uL Hgb 13.5 (13.0-17.5) gm/dL Hct 40.7 (39.0-53.0) % MCV 94.4 (80.0-100.0) fL MCH 31.2 (25.0-35.0) pg MCHC 33.1 (31.0-37.0) g/dL RDW 14.0 (11.5-15.5) % Plt Count 181 (150-450) k/uL MPV 9.2 Neutrophils % 66 % Lymphocytes % 23 % Monocytes % 6 % Eosinophils % 1 % Basophils % 0 % Neutrophils # 9.7 H (1.3-7.7) k/uL Lymphocytes # 3.4 (1.0-4.8) k/uL Monocytes # 0.9 (0-1.0) k/uL Eosinophils # 0.1 (0-0.7) k/uL Basophils # 0.0 (0-0.2) k/uL PT 10.6 (9.0-12.0) sec INR 1.0 (<1.2) APTT 21.7 L (22.0-30.0) sec Sodium 137 (137-145) mmol/L Potassium 3.9 (3.5-5.1) mmol/L Chloride 104 (98-107) mmol/L Carbon Dioxide 21 L (22-30) mmol/L Anion Gap 12 mmol/L BUN 22 H (9-20) mg/dL Creatinine 1.49 H (0.66-1.25) mg/dL Est GFR (CKD-EPI)AfAm 54 (>60 ml/min/1.73 sqM) Est GFR (CKD-EPI)NonAf 46 (>60 ml/min/1.73 sqM) Glucose 137 H (74-99) mg/dL Calcium 8.7 (8.4-10.2) mg/dL Magnesium 1.7 (1.6-2.3) mg/dL Total Bilirubin 1.0 (0.2-1.3) mg/dL AST 21 (17-59) U/L ALT 16 (4-49) U/L Alkaline Phosphatase 71 (38-126) U/L Troponin I (0.000-0.034) ng/mL Total Protein 6.0 L (6.3-8.2) g/dL Albumin 3.6 (3.5-5.0) g/dL 02/24/23 Range/Units 06:30 WBC (3.8-10.6) k/uL RBC (4.30-5.90) m/uL Hgb (13.0-17.5) gm/dL Hct (39.0-53.0) % MCV (80.0-100.0) fL MCH (25.0-35.0) pg MCHC (31.0-37.0) g/dL RDW (11.5-15.5) % Plt Count (150-450) k/uL MPV Neutrophils % % Lymphocytes % % Monocytes % % Eosinophils % % Basophils % % Neutrophils # (1.3-7.7) k/uL Lymphocytes # (1.0-4.8) k/uL Monocytes # (0-1.0) k/uL Eosinophils # (0-0.7) k/uL Basophils # (0-0.2) k/uL PT (9.0-12.0) sec INR (<1.2) APTT (22.0-30.0) sec Sodium (137-145) mmol/L Potassium (3.5-5.1) mmol/L Chloride (98-107) mmol/L Carbon Dioxide (22-30) mmol/L Anion Gap mmol/L BUN (9-20) mg/dL Creatinine (0.66-1.25) mg/dL Est GFR (CKD-EPI)AfAm (>60 ml/min/1.73 sqM) Est GFR (CKD-EPI)NonAf (>60 ml/min/1.73 sqM) Glucose (74-99) mg/dL Calcium (8.4-10.2) mg/dL Magnesium (1.6-2.3) mg/dL Total Bilirubin (0.2-1.3) mg/dL AST (17-59) U/L ALT (4-49) U/L Alkaline Phosphatase (38-126) U/L Troponin I 0.148 H* (0.000-0.034) ng/mL Total Protein (6.3-8.2) g/dL Albumin (3.5-5.0) g/dL Critical Care Time Critical Care Time: Yes (35 minutes) Disposition Clinical Impression: Ventricular tachycardia Disposition: ADMITTED IP TO THIS [facility] Condition: Critical
[2023-02-24] MEDS ORDERED: MAGNESIUM SULFATE-D5W PMX 1 GM in DEXTROSE/WATER 1 100ML.BAG IVPB ONE ×2 (06:33→07:41)
[2023-02-24 06:37] LABS: Basophils % (A) 0 %; Eosinophils # (A) 0.1 k/uL (0-0.7); Eosinophils % (A) 1 %; HCT 40.7 % (39.0-53.0); HGB 13.5 gm/dL (13.0-17.5); Lymphocytes # (A) 3.4 k/uL (1.0-4.8); Lymphocytes % (A) 23 %; MCH 31.2 pg (25.0-35.0); MCHC 33.1 g/dL (31.0-37.0); MCV 94.4 fL (80.0-100.0); Mean Platelet Volume 9.2; Monocytes # (A) 0.9 k/uL (0-1.0); Monocytes % (A) 6 %; Neutrophils # (A) 9.7 k/uL (1.3-7.7); Neutrophils % (A) 66 %; Platelet Count 181 k/uL (150-450); RBC 4.31 m/uL (4.30-5.90); WBC 14.7 k/uL (3.8-10.6)
[2023-02-24 06:42] LABS: ALT 16 U/L (4-49); AST 21 U/L (17-59); African American GFR (CKD) 54 (>60 ml/min/1.73 sqM); Albumin 3.6 g/dL (3.5-5.0); Alkaline Phosphatase 71 U/L (38-126); Anion Gap 12 mmol/L; Blood Urea Nitrogen 22 mg/dL (9-20); Calcium 8.7 mg/dL (8.4-10.2); Carbon Dioxide 21 mmol/L (22-30); Chloride 104 mmol/L (98-107); Glucose 137 mg/dL (74-99); Magnesium 1.7 mg/dL (1.6-2.3); Non-African American GFR(CKD) 46 (>60 ml/min/1.73 sqM); Potassium 3.9 mmol/L (3.5-5.1); Sodium 137 mmol/L (137-145)
[2023-02-24] MEDS ORDERED: DEXTROSE 5% IN WATER 100 ML with AMIODARONE 150 MG IV ONE (06:46)
[2023-02-24] MEDS ORDERED: DEXTROSE 5% IN WATER 250 ML with AMIODARONE 300 MG IV ONE (06:50)
[2023-02-24 06:54] LABS: Prothrombin Time 10.6 sec (9.0-12.0)
[2023-02-24] MEDS ORDERED: AMIODARONE 360 MG in DEXTROSE 5% IN WATER 200 ML IV ONE ×2 (06:57)
[2023-02-24] MEDS ORDERED: NITROGLYCERIN SL TABS 0.4 MG TAB SUBLINGUAL PRN (07:09)
[2023-02-24] MEDS ORDERED: SODIUM CHLORIDE 0.9% 1,000 ML IV SCH (07:15)
--- NOTE | 2023-02-24 07:49 | XR ---
EXAM: XR Chest, 1 View CLINICAL HISTORY: ITS. REASON XR Reason: dysrhythmia TECHNIQUE: Frontal view of the chest. COMPARISON: 11/14/22 FINDINGS: Lungs: Suspect mild pulmonary vascular congestion. Pleural space: Unremarkable. No pneumothorax. Heart: Stable cardiomegaly. Stable dual-lead cardiac pacemaker. Mediastinum: Unremarkable. Bones/joints: Stable. IMPRESSION: Suspect mild CHF. Clinical and laboratory correlation suggested.
[2023-02-24 08:07] LABS: Partial Thromboplastin Time 21.7 sec (22.0-30.0)
[2023-02-24] MEDS ORDERED: ALBUTEROL HFA INHALER INHALATION PRN (10:00)
[2023-02-24] MEDS: METOPROLOL SUCCINATE (ER) 50 MG TAB.ER.24H PO SCH (12:05)
[2023-02-24] MEDS ORDERED: ALBUTEROL NEBULIZED 2.5 MG/3 ML INHALATION SCH (13:00)
[2023-02-24] MEDS: LEVALBUTEROL 1.25 MG INHALATION SCH ×2 (13:02→20:19)
[2023-02-24] MEDS ORDERED: XOPENEX INHALATION PRN (13:24)
--- NOTE | 2023-02-24 14:06 | P.HPIM ---
History of Present Illness H&P Date: 02/24/23 History of present illness; patient is 72-year-old gentleman with past medical history significant for V. tach, nonischemic cardiomyopathy, CHF presented to the ER because of his AICD firing. Patient stated that he was all right this morning when around 5:30 this morning patient was wakened up with his defibrillator shocking him. Patient stated that he had multiple episodes of AICD firing over the next hour up to dozen times in total. Patient would get lightheaded prior to his AICD firing. Denies any shortness of breath. Denies any chest pain before that. Patient stated that he has been taking her colon prep for his upcoming colonoscopy for the last day. Because of the AICD firing, patient came to the ER Initial blood work given the ER showed abusive 14.7, hemoglobin 13.5, platelet count 181, sodium 137, potassium 3.9, BUN 22, creatinine 1.49, magnesium 1.7 EKG done in ER showed patient to be in V. tach, ventricular rate of 1 50 bpm, no ST segment elevation Patient was admitted to medicine service REVIEW OF SYSTEMS: CONSTITUTIONAL: No fever, no malaise, no fatigue. HEENT: No recent visual problems or hearing problems. Denied any sore throat. CARDIOVASCULAR: No chest pain, orthopnea,. PULMONARY: No shortness of breath, no cough, no hemoptysis. GASTROINTESTINAL: No diarrhea, no nausea, no vomiting, no abdominal pain. NEUROLOGICAL: No headaches, no weakness, no numbness. HEMATOLOGICAL: Denies any bleeding or petechiae. GENITOURINARY: Denies any burning micturition, frequency, or urgency. MUSCULOSKELETAL/RHEUMATOLOGICAL: Denies any joint pain, swelling, or any muscle pain. ENDOCRINE: Denies any polyuria or polydipsia. The rest of the 14-point review of systems is negative. PHYSICAL EXAMINATION: GENERAL: The patient is alert and oriented x3, not in any acute distress. Well developed, well nourished. HEENT: Pupils are round and equally reacting to light. EOMI. No scleral icterus. No conjunctival pallor. Normocephalic, atraumatic. No pharyngeal erythema. No thyromegaly. CARDIOVASCULAR: S1 and S2 present. No murmurs, rubs, or gallops. PULMONARY: Chest is clear to auscultation, no wheezing or crackles. ABDOMEN: Soft, nontender, nondistended, normoactive bowel sounds. No palpable organomegaly. MUSCULOSKELETAL: No joint swelling or deformity. EXTREMITIES: No cyanosis, clubbing, or pedal edema. NEUROLOGICAL: Gross neurological examination did not reveal any focal deficits. SKIN: No rashes. Assessment and plan AICD firing Sustained V. tach Elevated troponin Hypomagnesemia Nonischemic cardio myopathy Monitor vital signs Monitor CBC Monitor CMP Trend troponins. Continue amiodarone drip Resume Toprol and mexiletine Serial EKGs Consult cardiology Resume home meds Past Medical History Past Medical History: Asthma, COPD, Hyperlipidemia Additional Past Medical History / Comment(s): VTach, nonischemic cardiomyopathy, CHF, organized left ventricular apical clot, previous DVT ablation, asthma requiring intubation twice, BRAIN BLEED WHILE ON BLOOD THINNER RX 2009, cataracts bilaterally History of Any Multi-Drug Resistant Organisms: None Reported Past Surgical History: AICD, EPS, Pacemaker Additional Past Surgical History / Comment(s): 12/07/15 EPS wtih VT ablation. Other surgical hx: BRAIN SURGERY FOLLOWING BLEED. AICD/PACEMAKER, [facility]. generator change, Defibrilator testing Past Anesthesia/Blood Transfusion Reactions: No Reported Reaction Type of Cardiac Device: Permanent Pacemaker, AICD Device Placement Date:: 2005 implanted with gen change 2012 Past Psychological History: No Psychological Hx Reported Smoking Status: Never smoker Past Alcohol Use History: None Reported Past Drug Use History: None Reported - Past Family History Mother Family Medical History: No Reported History Additional Family Medical History / Comment(s): Mother at age 92 yrs. Father Family Medical History: No Reported History Additional Family Medical History / Comment(s): Father is healthy and 95 yrs old. Medications and Allergies Home Medications Medication Instructions Recorded Confirmed Type Aspirin EC [Ecotrin Low Dose] 81 mg PO BID 09/12/15 02/24/23 History Atorvastatin [Lipitor] 40 mg PO DAILY 09/12/15 02/24/23 History Montelukast [Singulair] 10 mg PO HS 09/12/15 02/24/23 History Spironolactone [Aldactone] 25 mg PO DAILY 09/12/15 02/24/23 History Amiodarone HCl [Cordarone] 100 mg PO DAILY 10/27/15 02/24/23 History Levalbuterol Hfa Inhaler [Xopenex 1 puff INHALATION RT-Q6H PRN 07/17/17 02/24/23 History Hfa Inhaler] Levalbuterol Nebulized [Xopenex 1.25 mg INHALATION RT-TID 07/17/17 02/24/23 History Nebulized] Sacubitril/Valsartan [Entresto 24 1 tab PO BID 07/17/17 02/24/23 History mg-26 mg Tablet] Furosemide [Lasix] 40 mg PO DAILY #30 tab 07/21/17 02/24/23 Rx predniSONE 5 mg PO DAILY 02/12/19 02/24/23 History Metoprolol Succinate (ER) [Toprol 50 mg PO DAILY@1200 01/30/23 02/24/23 History Xl] Mexiletine HCl 200 mg PO Q8H 01/30/23 02/24/23 History Diphenox-Atrop 2.5-0.025 mg 1 tab PO DAILY PRN 02/24/23 02/24/23 History [Lomotil] Allergies Allergy/AdvReac Type Severity Reaction Status Date / Time hydrocodone [From [place]] Allergy Anaphylaxis Verified 02/24/23 07:18 ibuprofen Allergy Anaphylaxis Verified 02/24/23 07:18 Physical Exam Vitals: Vital Signs Temp Pulse Pulse Resp BP Pulse Ox 02/24/23 09:14 80 18 107/63 100 02/24/23 06:58 92 18 86/51 98 02/24/23 06:48 142 H 18 81/55 95 02/24/23 06:20 97 F L 149 H 142 H 22 71/44 97 Intake and Output 02/23/23 02/24/23 02/24/23 22:59 06:59 14:59 Other: Weight 90.718 kg Results CBC & Chem 7: 02/24/23 06:30 02/24/23 06:30 Labs: Abnormal Lab Results - Last 24 Hours (Table) 02/24/23 02/24/23 02/24/23 Range/Units 06:30 06:30 06:30 WBC 14.7 H (3.8-10.6) k/uL Neutrophils # 9.7 H (1.3-7.7) k/uL APTT 21.7 L (22.0-30.0) sec Carbon Dioxide 21 L (22-30) mmol/L BUN 22 H (9-20) mg/dL Creatinine 1.49 H (0.66-1.25) mg/dL Glucose 137 H (74-99) mg/dL Troponin I (0.000-0.034) ng/mL Total Protein 6.0 L (6.3-8.2) g/dL 02/24/23 Range/Units 06:30 WBC (3.8-10.6) k/uL Neutrophils # (1.3-7.7) k/uL APTT (22.0-30.0) sec Carbon Dioxide (22-30) mmol/L BUN (9-20) mg/dL Creatinine (0.66-1.25) mg/dL Glucose (74-99) mg/dL Troponin I 0.148 H* (0.000-0.034) ng/mL Total Protein (6.3-8.2) g/dL
--- NOTE | 2023-02-24 14:08 | P.CRDCN ---
History of Present Illness Consult date: 02/24/23 Reason for Consult (text): Defibrillator shock, V. tach History of present illness: History of present illness: This is a 72 year old male patient of Dr. Li with past medical history of nonischemic cardiomyopathy, ventricular tachycardia. Patient states that he was undergoing prep for colonoscopy yesterday has been having diarrhea prior to that. This morning he was sitting at the kitchen table and he felt his defibrillator shock very forcefully and then several small shocks. Once EMS picked him up he had 3 episodes with EMS for a total of 20 episodes. His initial EKG was V. tach now is sinus rhythm. He denies having any chest pain. He states he has been taking all of his medications as instructed. EKG initially V. tach, now sinus rhythm Chest x-ray: Suspect mild CHF. WBC 14.7, hemoglobin 13.5, platelet count 181. INR 1. Troponin 0.148, 1.450. BUN 22 creatinine 1.49 with previous creatinine of 1.02. Home cardiac medications: Amiodarone 100 mg daily, aspirin 81 mg twice daily, Lasix 40 mg daily, Toprol-XL 50 mg daily, mexiletine 200 mg every 8 hours, Entresto 2426 milligrams twice daily, Aldactone 25 mg daily 02/11/2023 EP procedure: Cinefluoroscopy of the leads was performed, Atrial lead, active fix, in the right atrial appendage. No fractures or breaks. ICD lead shows evidence of deteriorating and may implant new ICD lead along with ICD generator change. Review Of Systems: At the time of my evaluation: Constitutional: No fever, no chills. No weakness, fatigue or lethargy. EENT: No headache. No dizziness. Lungs: No shortness of breath, cough, no sputum production. No wheezing. Cardiovascular: No chest pain, no lower extremity edema. No palpitations. No paroxysmal nocturnal dyspnea. No orthopnea. No lightheadedness or dizziness. No syncopal episodes. Abdominal: No abdominal pain. No nausea, vomiting. No diarrhea. No constipation. No bloody or tarry stools. Genitourinary: No dysuria.. No urinary retention. Musculoskeletal: No myalgias. No muscle weakness, no frequent falls. No back pain. No neck pain. Integumentary: No wounds. No rash. No unusual bruising. Neurologic: No aphasia. No facial droop. No change in mentation. No head injury. No headache. Physical examination: Gen: This is a 72-year-old male. He is resting in bed and appears very comfortable and in no acute distress. VS: reviewed HEENT: Head is atraumatic, normocephalic. Pupils equal, round. Sclerae is anicteric. NECK: Supple. No JVD. . LUNGS: Clear to auscultation. No wheezes or rhonchi. No intercostal retractions. HEART: Regular rate and rhythm. No murmur. ABDOMEN: Soft No tenderness. EXTREMITIES: No pedal edema. No calf tenderness. NEUROLOGICAL: Patient is awake, alert and oriented x3. Assessment: AICD shock appropriate in setting of ventricular tachycardia Nonischemic cardio myopathy Ventricular tachycardia Elevated troponins possibly related to AICD shock or could be acute coronary syndrome which led to the ventricular tachycardia End of life on AICD battery Plan: Continue patient on home cardiac medications Continue amiodarone drip Obtain 2-D echocardiogram and Doppler study to assess cardiac structure and function Nothing by mouth after midnight for possible generator change management consultant replacement Further recommendations to follow based upon clinical course Thank you kindly for this consultation. Nurse practitioner note has been reviewed, I agree with documented findings and plan of care. Patient was seen and examined. Past Medical History Past Medical History: Asthma, COPD, Hyperlipidemia Additional Past Medical History / Comment(s): VTach, nonischemic cardiomyopathy, CHF, organized left ventricular apical clot, previous DVT ablation, asthma requiring intubation twice, BRAIN BLEED WHILE ON BLOOD THINNER RX 2009, cataracts bilaterally History of Any Multi-Drug Resistant Organisms: None Reported Past Surgical History: AICD, EPS, Pacemaker Additional Past Surgical History / Comment(s): 12/07/15 EPS [facility] [place] ablation. Other surgical hx: BRAIN SURGERY FOLLOWING BLEED. AICD/PACEMAKER, [facility]. generator change, Defibrilator testing Past Anesthesia/Blood Transfusion Reactions: No Reported Reaction Type of Cardiac Device: Permanent Pacemaker, AICD Device Placement Date:: 2005 implanted with gen change 2012 Past Psychological History: No Psychological Hx Reported Additional Psychological History / Comment(s): Pt resides with his spouse whom he cares for. He uses no assistive device. He drives. Smoking Status: Never smoker Past Alcohol Use History: None Reported Additional Past Alcohol Use History / Comment(s): QUIT: AT AGE 38. SMOKED FOR 20 YRS. PPD: 4-5 CIGARETTES A DAY. Past Drug Use History: None Reported - Past Family History Mother Family Medical History: No Reported History Additional Family Medical History / Comment(s): Mother at age 92 yrs. Father Family Medical History: No Reported History Additional Family Medical History / Comment(s): Father is healthy and 95 yrs old. Medications and Allergies Home Medications Medication Instructions Recorded Confirmed Type Aspirin EC [Ecotrin Low Dose] 81 mg PO BID 09/12/15 02/24/23 History Atorvastatin [Lipitor] 40 mg PO DAILY 09/12/15 02/24/23 History Montelukast [Singulair] 10 mg PO HS 09/12/15 02/24/23 History Spironolactone [Aldactone] 25 mg PO DAILY 09/12/15 02/24/23 History Amiodarone HCl [Cordarone] 100 mg PO DAILY 10/27/15 02/24/23 History Levalbuterol Hfa Inhaler [Xopenex 1 puff INHALATION RT-Q6H PRN 07/17/17 02/24/23 History Hfa Inhaler] Levalbuterol Nebulized [Xopenex 1.25 mg INHALATION RT-TID 07/17/17 02/24/23 History Nebulized] Sacubitril/Valsartan [Entresto 24 1 tab PO BID 07/17/17 02/24/23 History mg-26 mg Tablet] Furosemide [Lasix] 40 mg PO DAILY #30 tab 07/21/17 02/24/23 Rx predniSONE 5 mg PO DAILY 02/12/19 02/24/23 History Metoprolol Succinate (ER) [Toprol 50 mg PO DAILY@1200 01/30/23 02/24/23 History Xl] Mexiletine HCl 200 mg PO Q8H 01/30/23 02/24/23 History Diphenox-Atrop 2.5-0.025 mg 1 tab PO DAILY PRN 02/24/23 02/24/23 History [Lomotil] Allergies Allergy/AdvReac Type Severity Reaction Status Date / Time hydrocodone [From [facility]] Allergy Anaphylaxis Verified 02/24/23 07:18 ibuprofen Allergy Anaphylaxis Verified 02/24/23 07:18 Physical Exam Vitals: Vital Signs Temp Pulse Pulse Resp BP BP Pulse Ox 02/24/23 10:44 98.3 F 75 16 129/57 100 02/24/23 10:42 98.3 F 17 129/57 100 02/24/23 09:14 80 18 107/63 100 02/24/23 06:58 92 18 86/51 98 02/24/23 06:48 142 H 18 81/55 95 02/24/23 06:20 97 F L 149 H 142 H 22 71/44 97 Intake and Output 02/23/23 02/24/23 02/24/23 22:59 06:59 14:59 Other: Weight 90.718 kg 90.718 kg Results 02/24/23 06:30 02/24/23 06:30 Cardiac Enzymes 02/24/23 02/24/23 Range/Units 06:30 06:30 AST 21 (17-59) U/L Troponin I 0.148 H* (0.000-0.034) ng/mL Coagulation 02/24/23 Range/Units 06:30 PT 10.6 (9.0-12.0) sec APTT 21.7 L (22.0-30.0) sec CBC 02/24/23 Range/Units 06:30 WBC 14.7 H (3.8-10.6) k/uL RBC 4.31 (4.30-5.90) m/uL Hgb 13.5 (13.0-17.5) gm/dL Hct 40.7 (39.0-53.0) % Plt Count 181 (150-450) k/uL Comprehensive Metabolic Panel 02/24/23 Range/Units 06:30 Sodium 137 (137-145) mmol/L Potassium 3.9 (3.5-5.1) mmol/L Chloride 104 (98-107) mmol/L Carbon Dioxide 21 L (22-30) mmol/L BUN 22 H (9-20) mg/dL Creatinine 1.49 H (0.66-1.25) mg/dL Glucose 137 H (74-99) mg/dL Calcium 8.7 (8.4-10.2) mg/dL AST 21 (17-59) U/L ALT 16 (4-49) U/L Alkaline Phosphatase 71 (38-126) U/L Total Protein 6.0 L (6.3-8.2) g/dL Albumin 3.6 (3.5-5.0) g/dL Current Medications Generic Name Dose Route Start Last Admin Trade Name Freq PRN Reason Stop Dose Admin Albuterol Sulfate 1 puff 02/24/23 10:00 Albuterol Hfa Inhaler INHALATION RT-Q6H PRN Shortness Of Breath Albuterol Sulfate 2.5 mg 02/24/23 13:00 Albuterol Nebulized 2.5 Mg/3 Ml INHALATION RT-TID [facility] Aspirin 325 mg 02/25/23 09:00 Aspirin 325 Mg Tab PO DAILY [facility] Atorvastatin Calcium 40 mg 02/25/23 09:00 Atorvastatin 40 Mg Tab PO DAILY [facility] Amiodarone HCl 360 mg/ 200 mls @ 33.333 mls/hr 02/24/23 06:57 02/24/23 07:22 Dextrose/Water IV 02/24/23 12:56 1 mg/min .Q6H ONE 33.333 mls/hr Administration Protocol 1 MG/MIN Sodium Chloride 1,000 mls @ 100 mls/hr 02/24/23 07:15 02/24/23 07:37 Saline 0.9% IV 100 mls/hr .Q10H JOSE MIGUEL Administration Metoprolol Succinate 50 mg 02/24/23 12:00 Metoprolol Succinate (Er) 50 Mg Tab.Er.24h PO DAILY@1200 [facility] Montelukast Sodium 10 mg 02/24/23 21:00 Montelukast 10 Mg Tab PO HS JOSE MIGUEL Nitroglycerin 0.4 mg 02/24/23 07:09 Nitroglycerin Sl Tabs 0.4 Mg Tab SUBLINGUAL Q5M PRN Chest Pain Prednisone 5 mg 02/25/23 09:00 Prednisone 5 Mg Tab PO DAILY [facility] Intake and Output 02/23/23 02/24/23 02/24/23 22:59 06:59 14:59 Other: Weight 90.718 kg 90.718 kg Patient Weight 02/25/23 06:59 Weight 90.718 kg 02/24/23 06:30 02/24/23 06:30
[2023-02-24] MEDS: MEXILETINE 200 MG CAP PO SCH ×2 (15:08→22:20)
[2023-02-24] MEDS: SACUBITRIL/VALSARTAN 24 MG-26 MG TABLET PO SCH ×2 (15:08→22:20)
[2023-02-24] MEDS: AMIODARONE 450 MG in DEXTROSE 5% IN WATER 250 ML IV SCH ×2 (15:08)
[2023-02-24] MEDS: MONTELUKAST 10 MG TAB PO SCH (22:20)
[2023-02-24] MEDS: ASPIRIN 81 MG PO SCH (22:20)
[2023-02-25] MEDS: AMIODARONE 450 MG in DEXTROSE 5% IN WATER 250 ML IV SCH ×2 (05:40)
[2023-02-25] MEDS: LEVALBUTEROL 1.25 MG INHALATION SCH ×3 (08:26→19:41)
[2023-02-25] MEDS: MEXILETINE 200 MG CAP PO SCH ×3 (08:46→21:38)
[2023-02-25] MEDS: ATORVASTATIN 40 MG TAB PO SCH (08:46)
[2023-02-25] MEDS: SPIRONOLACTONE 25 MG TAB PO SCH (08:46)
[2023-02-25] MEDS: FUROSEMIDE 40 MG TAB PO SCH (08:46)
[2023-02-25] MEDS: predniSONE 5 MG TAB PO SCH (08:47)
[2023-02-25] MEDS: SACUBITRIL/VALSARTAN 24 MG-26 MG TABLET PO SCH ×2 (08:47→21:38)
[2023-02-25] MEDS ORDERED: ASPIRIN 325 MG TAB PO SCH (09:00)
[2023-02-25 09:33] LABS: African American GFR (CKD) >90 (>60 ml/min/1.73 sqM); Anion Gap 5 mmol/L; Blood Urea Nitrogen 15 mg/dL (9-20); Calcium 7.8 mg/dL (8.4-10.2); Carbon Dioxide 23 mmol/L (22-30); Chloride 109 mmol/L (98-107); Glucose 97 mg/dL (74-99); Non-African American GFR(CKD) 79 (>60 ml/min/1.73 sqM); Potassium 3.4 mmol/L (3.5-5.1); Sodium 137 mmol/L (137-145)
[2023-02-25] MEDS ORDERED: Potassium Replacement Protocol 1 EACH MISC MISCELLANE PRN (09:50)
[2023-02-25] MEDS: POTASSIUM CHLORIDE ER 20 MEQ TAB.ER PO SCH ×2 (09:59→12:16)
[2023-02-25] MEDS: ASPIRIN 81 MG PO SCH ×2 (12:16→21:37)
[2023-02-25] MEDS: METOPROLOL SUCCINATE (ER) 50 MG TAB.ER.24H PO SCH (12:16)
[2023-02-25] MEDS: ACETAMINOPHEN TAB 500 MG TAB PO PRN ×2 (12:16→21:38)
--- NOTE | 2023-02-25 12:59 | P.PN ---
Subjective Progress Note Date: 02/25/23 patient is 72-year-old gentleman with past medical history significant for V. tach, nonischemic cardiomyopathy, CHF presented to the ER because of his AICD firing. Patient stated that he was all right this morning when around 5:30 this morning patient was wakened up with his defibrillator shocking him. Patient stated that he had multiple episodes of AICD firing over the next hour up to dozen times in total. Patient would get lightheaded prior to his AICD firing. Denies any shortness of breath. Denies any chest pain before that. Patient stated that he has been taking her colon prep for his upcoming colonoscopy for the last day. Because of the AICD firing, patient came to the ER Initial blood work given the ER showed abusive 14.7, hemoglobin 13.5, platelet count 181, sodium 137, potassium 3.9, BUN 22, creatinine 1.49, magnesium 1.7 EKG done in ER showed patient to be in V. tach, ventricular rate of 1 50 bpm, no ST segment elevation Patient was admitted to medicine service 02/25. Patient seen and examined. No further episodes of AICD firing. Laying comfortably in the bed. No acute issues overnight REVIEW OF SYSTEMS: CONSTITUTIONAL: No fever, no malaise,. CARDIOVASCULAR: No chest pain, no palpitations, no syncope. PULMONARY: No shortness of breath, no cough, GASTROINTESTINAL: No diarrhea, no nausea, no vomiting, no abdominal pain. NEUROLOGICAL: No headaches, no weakness, PHYSICAL EXAMINATION: GENERAL: The patient is alert and oriented x3, not in any acute distress. Well developed, well nourished. HEENT: Pupils are round and equally reacting to light. EOMI. No scleral icterus. No conjunctival pallor. Normocephalic, atraumatic. No pharyngeal erythema. No thyromegaly. CARDIOVASCULAR: S1 and S2 present. No murmurs, rubs, or gallops. PULMONARY: Chest is clear to auscultation, no wheezing or crackles. ABDOMEN: Soft, nontender, nondistended, normoactive bowel sounds. No palpable organomegaly. MUSCULOSKELETAL: No joint swelling or deformity. EXTREMITIES: No cyanosis, clubbing, or pedal edema. NEUROLOGICAL: Gross neurological examination did not reveal any focal deficits. SKIN: No rashes. Assessment and plan AICD firing Sustained V. tach Hypokalemia Elevated troponin Hypomagnesemia Nonischemic cardio myopathy Monitor vital signs Monitor CBC Monitor CMP Trend troponins. Continue amiodarone drip Continue Toprol and mexiletine Follow-up 2D echo Cardiology planning for possible generator change and lead replacement Follow-up on cardiology recommendations Objective - Vital Signs Vital signs: Vital Signs Temp 97.9 F 02/25/23 08:42 Pulse 65 02/25/23 09:00 Resp 16 02/25/23 08:42 BP 125/57 02/25/23 08:42 Pulse Ox 94 L 02/25/23 09:03 FiO2 Intake & Output 02/24/23 02/25/23 02/25/23 18:59 06:59 18:59 Intake Total 426.227 Balance 426.227 Weight 105 kg 98.6 kg Intake: Intake, IV Titration 306.227 Amount Amiodarone 450 mg In 306.227 Dextrose 5% in Water 250 ml @ 0.5 MG/MIN 16.667 mls/hr IV .Q15H [facility] Rx#: [id number] Oral 120 Other: Voiding Method Toilet Diaper # Voids 1 - Labs CBC & Chem 7: 02/24/23 06:30 02/25/23 07:53 Labs: Abnormal Lab Results - Last 24 Hours (Table) 02/24/23 02/24/23 02/25/23 Range/Units 10:48 14:09 07:53 Potassium 3.4 L (3.5-5.1) mmol/L Chloride 109 H (98-107) mmol/L Calcium 7.8 L (8.4-10.2) mg/dL Troponin I 1.450 H* 1.820 H* (0.000-0.034) ng/mL
--- NOTE | 2023-02-25 13:51 | P.PN ---
Subjective Progress Note Date: 02/25/23 History of present illness: This is a 72 year old male patient of Dr. Li with past medical history of nonischemic cardiomyopathy, ventricular tachycardia. Patient states that he was undergoing prep for colonoscopy yesterday has been having diarrhea prior to that. This morning he was sitting at the kitchen table and he felt his defibrillator shock very forcefully and then several small shocks. Once EMS picked him up he had 3 episodes with EMS for a total of 20 episodes. His initial EKG was V. tach now is sinus rhythm. He denies having any chest pain. He states he has been taking all of his medications as instructed. EKG initially V. tach, now sinus rhythm Chest x-ray: Suspect mild CHF. WBC 14.7, hemoglobin 13.5, platelet count 181. INR 1. Troponin 0.148, 1.450. BUN 22 creatinine 1.49 with previous creatinine of 1.02. Home cardiac medications: Amiodarone 100 mg daily, aspirin 81 mg twice daily, Lasix 40 mg daily, Toprol-XL 50 mg daily, mexiletine 200 mg every 8 hours, Entresto 2426 milligrams twice daily, Aldactone 25 mg daily 02/11/2023 EP procedure: Cinefluoroscopy of the leads was performed, Atrial lead, active fix, in the right atrial appendage. No fractures or breaks. ICD lead shows evidence of deteriorating and may implant new ICD lead along with ICD generator change. 02/25 Patient is seen today in follow-up. He denies any repeat firing of his AICD. He has been on amiodarone drip which is ended this morning. Patient will be started on oral amiodarone and was previously on 100 mg daily prior to admission. He denies having any shortness of breath. He does have some chest wall pain. Heart rate is in the 70s, blood pressure 121/61. Potassium is 3.4, BUN 15 creatinine 0.96. Physical examination: Gen: This is a 72-year-old male. He is resting in bed and appears very comfortable and in no acute distress. VS: reviewed HEENT: Head is atraumatic, normocephalic. Pupils equal, round. Sclerae is anicteric. NECK: Supple. No JVD. . LUNGS: Clear to auscultation. No wheezes or rhonchi. No intercostal retractions. HEART: Regular rate and rhythm. No murmur. ABDOMEN: Soft No tenderness. EXTREMITIES: No pedal edema. No calf tenderness. NEUROLOGICAL: Patient is awake, alert and oriented x3. Assessment: AICD shock appropriate in setting of ventricular tachycardia Nonischemic cardio myopathy Ventricular tachycardia Elevated troponins possibly related to AICD shock or could be acute coronary syndrome which led to the ventricular tachycardia End of life on AICD battery Plan: Continue patient on home cardiac medications Transition amiodarone drip to oral 400 mg 3 times daily Further recommendations to follow based upon clinical course Nurse practitioner note has been reviewed, I agree with documented findings and plan of care. Patient was seen and examined. Objective - Vital Signs Vital signs: Vital Signs Temp 97.9 F 02/25/23 08:42 Pulse 65 02/25/23 09:00 Resp 16 02/25/23 08:42 BP 125/57 02/25/23 08:42 Pulse Ox 94 L 02/25/23 09:03 FiO2 Intake & Output 02/24/23 02/25/23 02/25/23 18:59 06:59 18:59 Intake Total 426.227 Balance 426.227 Weight 105 kg 98.6 kg Intake: Intake, IV Titration 306.227 Amount Amiodarone 450 mg In 306.227 Dextrose 5% in Water 250 ml @ 0.5 MG/MIN 16.667 mls/hr IV .Q15H [facility] Rx#: [id number] Oral 120 Other: Voiding Method Toilet Diaper # Voids 1 1 # Bowel Movements 1 - Labs CBC & Chem 7: 02/24/23 06:30 02/25/23 07:53 Labs: Abnormal Lab Results - Last 24 Hours (Table) 02/24/23 02/24/23 02/25/23 Range/Units 10:48 14:09 07:53 Potassium 3.4 L (3.5-5.1) mmol/L Chloride 109 H (98-107) mmol/L Calcium 7.8 L (8.4-10.2) mg/dL Troponin I 1.450 H* 1.820 H* (0.000-0.034) ng/mL
[2023-02-25 14:46] LABS: Chol/HDL Ratio 2.75 Ratio; VLDL Calculation 12.58 mg/dL (5.00-40.00)
[2023-02-25] MEDS: AMIODARONE 200 MG TAB PO SCH ×2 (15:42→21:37)
[2023-02-25] MEDS: MONTELUKAST 10 MG TAB PO SCH (21:39)
[2023-02-26] MEDS: LEVALBUTEROL 1.25 MG INHALATION SCH ×3 (05:48→18:10)
[2023-02-26] MEDS ORDERED: ATORVASTATIN 80 MG TAB PO STA (09:16)
[2023-02-26] MEDS ORDERED: ASPIRIN 325 MG TAB PO STA (09:16)
[2023-02-26] MEDS ORDERED: NITROGLYCERIN SL TABS 0.4 MG TAB SUBLINGUAL PRN ×2 (09:16→14:34)
[2023-02-26] MEDS ORDERED: ALPRAZolam 0.5 MG TAB PO PRN (09:16)
[2023-02-26] MEDS ORDERED: ALPRAZolam 0.25 MG TAB PO PRN (09:16)
[2023-02-26] MEDS: FUROSEMIDE 40 MG TAB PO SCH ×2 (09:27→09:32)
[2023-02-26] MEDS: ASPIRIN 81 MG PO SCH ×2 (09:27→20:19)
[2023-02-26] MEDS: ATORVASTATIN 40 MG TAB PO SCH (09:27)
[2023-02-26] MEDS: ACETAMINOPHEN TAB 500 MG TAB PO PRN ×2 (09:27→22:16)
[2023-02-26] MEDS: SPIRONOLACTONE 25 MG TAB PO SCH (09:33)
[2023-02-26] MEDS: AMIODARONE 200 MG TAB PO SCH ×3 (09:33→22:17)
[2023-02-26] MEDS: MEXILETINE 200 MG CAP PO SCH ×3 (09:34→22:17)
[2023-02-26] MEDS: predniSONE 5 MG TAB PO SCH (09:34)
[2023-02-26] MEDS: SACUBITRIL/VALSARTAN 24 MG-26 MG TABLET PO SCH ×2 (09:34→20:19)
[2023-02-26] MEDS: SODIUM CHLORIDE 0.9% 1,000 ML IV SCH (11:16)
[2023-02-26 12:04] LABS: ALT 15 U/L (4-49); AST 23 U/L (17-59); African American GFR (CKD) 87 (>60 ml/min/1.73 sqM); Albumin 2.9 g/dL (3.5-5.0); Alkaline Phosphatase 52 U/L (38-126); Anion Gap 7 mmol/L; Blood Urea Nitrogen 17 mg/dL (9-20); Calcium 8.1 mg/dL (8.4-10.2); Carbon Dioxide 26 mmol/L (22-30); Chloride 106 mmol/L (98-107); Glucose 109 mg/dL (74-99); Non-African American GFR(CKD) 75 (>60 ml/min/1.73 sqM); Potassium 3.6 mmol/L (3.5-5.1); Sodium 139 mmol/L (137-145); Total Bilirubin 0.5 mg/dL (0.2-1.3)
[2023-02-26 12:41] LABS: Basophils % (A) 0 %; Eosinophils # (A) 0.1 k/uL (0-0.7); Eosinophils % (A) 1 %; HCT 35.6 % (39.0-53.0); HGB 11.8 gm/dL (13.0-17.5); Lymphocytes # (A) 1.2 k/uL (1.0-4.8); Lymphocytes % (A) 16 %; MCH 31.2 pg (25.0-35.0); MCHC 33.1 g/dL (31.0-37.0); MCV 94.3 fL (80.0-100.0); Monocytes # (A) 0.7 k/uL (0-1.0); Monocytes % (A) 9 %; Neutrophils # (A) 5.3 k/uL (1.3-7.7); Neutrophils % (A) 72 %; Platelet Count 164 k/uL (150-450); RBC 3.77 m/uL (4.30-5.90); RDW 13.8 % (11.5-15.5); WBC 7.4 k/uL (3.8-10.6)
[2023-02-26] MEDS: METOPROLOL SUCCINATE (ER) 50 MG TAB.ER.24H PO SCH (12:42)
[2023-02-26] MEDS ORDERED: VERAPAMIL 2.5 MG/ML 2 ML AMP ONE (12:58)
[2023-02-26] MEDS ORDERED: HEPARIN SODIUM 1,000 UN/ML (10ML VL) ONE (12:58)
[2023-02-26] MEDS ORDERED: IV FLUID CONTINUATION 1,000 ML IV ONE (13:18)
[2023-02-26] MEDS ORDERED: MIDAZOLAM 2 MG/2 ML VIAL IV ONE (13:18)
[2023-02-26] MEDS ORDERED: LIDOCAINE 1% INJ 10MG/ML (5 ML VIAL-PF) SQ ONE (13:18)
[2023-02-26] MEDS: HEPARIN SODIUM 1,000 UN/ML (10ML VL) IV ONE ×2 (13:24→14:36)
[2023-02-26] MEDS ORDERED: IOPAMIDOL-370 100ML BTL INJ ONE ×3 (13:49→14:32)
--- NOTE | 2023-02-26 13:53 | P.PN ---
Subjective Progress Note Date: 02/26/23 History of present illness: This is a 72 year old male patient of Dr. Li with past medical history of nonischemic cardiomyopathy, ventricular tachycardia. Patient states that he was undergoing prep for colonoscopy yesterday has been having diarrhea prior to that. This morning he was sitting at the kitchen table and he felt his defibrillator shock very forcefully and then several small shocks. Once EMS picked him up he had 3 episodes with EMS for a total of 20 episodes. His initial EKG was V. tach now is sinus rhythm. He denies having any chest pain. He states he has been taking all of his medications as instructed. EKG initially V. tach, now sinus rhythm Chest x-ray: Suspect mild CHF. WBC 14.7, hemoglobin 13.5, platelet count 181. INR 1. Troponin 0.148, 1.450. BUN 22 creatinine 1.49 with previous creatinine of 1.02. Home cardiac medications: Amiodarone 100 mg daily, aspirin 81 mg twice daily, Lasix 40 mg daily, Toprol-XL 50 mg daily, mexiletine 200 mg every 8 hours, Entresto 2426 milligrams twice daily, Aldactone 25 mg daily 02/11/2023 EP procedure: Cinefluoroscopy of the leads was performed, Atrial lead, active fix, in the right atrial appendage. No fractures or breaks. ICD lead shows evidence of deteriorating and may implant new ICD lead along with ICD generator change. 02/25 Patient is seen today in follow-up. He denies any repeat firing of his AICD. He has been on amiodarone drip which is ended this morning. Patient will be started on oral amiodarone and was previously on 100 mg daily prior to admission. He denies having any shortness of breath. He does have some chest wall pain. Heart rate is in the 70s, blood pressure 121/61. Potassium is 3.4, BUN 15 creatinine 0.96. 02/26 Patient has been seen and evaluated by both Dr. Valentin and Dr. Li. Patient denies having any chest pain. He does have some tenderness in his chest secondary to the AICD firing. No further episodes of shock from defibrillator. His heart rate has been running in the 70s and 80s, blood pressure 100/60. Repeat blood work reveals WBC 7.4, hemoglobin 11.8. Electrolytes and renal function are normal. Physical examination: Gen: This is a 72-year-old male. He is resting in bed and appears very comfortable and in no acute distress. VS: reviewed HEENT: Head is atraumatic, normocephalic. Pupils equal, round. Sclerae is anicteric. NECK: Supple. No JVD. . LUNGS: Clear to auscultation. No wheezes or rhonchi. No intercostal retractions. HEART: Regular rate and rhythm. No murmur. ABDOMEN: Soft No tenderness. EXTREMITIES: No pedal edema. No calf tenderness. NEUROLOGICAL: Patient is awake, alert and oriented x3. Assessment: AICD shock appropriate in setting of ventricular tachycardia Nonischemic cardio myopathy Ventricular tachycardia Elevated troponins possibly related to AICD shock or could be acute coronary syndrome which led to the ventricular tachycardia End of life on AICD battery Plan: Continue patient on home cardiac medications Continue amiodarone oral 400 mg 3 times daily Patient will be scheduled for cardiac catheterization today with Dr. Valentin Patient will be scheduled for ablation tomorrow with Dr. Li. Nurse practitioner note has been reviewed, I agree with documented findings and plan of care. Patient was seen and examined. Objective - Vital Signs Vital signs: Vital Signs Temp 98.1 F 02/26/23 08:00 Pulse 71 02/26/23 08:00 Resp 16 02/26/23 08:00 BP 104/59 02/26/23 08:00 Pulse Ox 97 02/26/23 08:00 FiO2 Intake & Output 02/25/23 02/26/23 02/26/23 18:59 06:59 18:59 Intake Total 218 658 Balance 218 658 Weight 105.5 kg Intake: Oral 218 658 Other: Voiding Method Toilet Diaper # Voids 4 1 # Bowel Movements 1 - Labs CBC & Chem 7: 02/26/23 10:42 02/26/23 10:42 Labs: Abnormal Lab Results - Last 24 Hours (Table) 02/25/23 Range/Units 07:53 Potassium 3.4 L (3.5-5.1) mmol/L Chloride 109 H (98-107) mmol/L Calcium 7.8 L (8.4-10.2) mg/dL
[2023-02-26] MEDS ORDERED: TICAGRELOR 90 MG TAB ONE (14:31)
[2023-02-26] MEDS ORDERED: ATROPINE SULFATE 0.1 MG/ML 10ML SYRINGE IV PRN (14:34)
[2023-02-26] MEDS ORDERED: MAG HYDROX/AL HYDROX/SIMETH 30 ML CUP PO PRN (14:34)
[2023-02-26] MEDS ORDERED: RX INFO: IV CONTRAST WAS GIVEN 1 EACH MISC MISCELLANE PRN (14:34)
[2023-02-26] MEDS ORDERED: ZOLPIDEM 5 MG TAB PO PRN (14:34)
[2023-02-26] MEDS ORDERED: SODIUM CHLORIDE 0.9% 1,000 ML in EMPTY BAG 1 BAG IV SCH (14:45)
--- NOTE | 2023-02-26 15:01 | P.PN ---
Subjective Progress Note Date: 02/26/23 patient is 72-year-old gentleman with past medical history significant for V. tach, nonischemic cardiomyopathy, CHF presented to the ER because of his AICD firing. Patient stated that he was all right this morning when around 5:30 this morning patient was wakened up with his defibrillator shocking him. Patient stated that he had multiple episodes of AICD firing over the next hour up to dozen times in total. Patient would get lightheaded prior to his AICD firing. Denies any shortness of breath. Denies any chest pain before that. Patient stated that he has been taking her colon prep for his upcoming colonoscopy for the last day. Because of the AICD firing, patient came to the ER Initial blood work given the ER showed abusive 14.7, hemoglobin 13.5, platelet count 181, sodium 137, potassium 3.9, BUN 22, creatinine 1.49, magnesium 1.7 EKG done in ER showed patient to be in V. tach, ventricular rate of 1 50 bpm, no ST segment elevation Patient was admitted to medicine service 02/25. Patient seen and examined. No further episodes of AICD firing. Laying comfortably in the bed. No acute issues overnight 02/26. Patient seen and examined. Sitting upright in the bed, denies any chest pain or shortness of breath. Currently nothing by mouth going for cardiac cath today REVIEW OF SYSTEMS: CONSTITUTIONAL: No fever, no malaise,. CARDIOVASCULAR: No chest pain, no palpitations, no syncope. PULMONARY: No shortness of breath, no cough, GASTROINTESTINAL: No diarrhea, no nausea, no vomiting, no abdominal pain. NEUROLOGICAL: No headaches, no weakness, PHYSICAL EXAMINATION: GENERAL: The patient is alert and oriented x3, not in any acute distress. Well developed, well nourished. HEENT: Pupils are round and equally reacting to light. EOMI. No scleral icterus. No conjunctival pallor. Normocephalic, atraumatic. No pharyngeal erythema. No thyromegaly. CARDIOVASCULAR: S1 and S2 present. No murmurs, rubs, or gallops. PULMONARY: Chest is clear to auscultation, no wheezing or crackles. ABDOMEN: Soft, nontender, nondistended, normoactive bowel sounds. No palpable organomegaly. MUSCULOSKELETAL: No joint swelling or deformity. EXTREMITIES: No cyanosis, clubbing, or pedal edema. NEUROLOGICAL: Gross neurological examination did not reveal any focal deficits. SKIN: No rashes. Assessment and plan AICD firing Sustained V. tach Hypokalemia Elevated troponin Hypomagnesemia Nonischemic cardio myopathy Monitor vital signs Monitor CBC Monitor CMP Trend troponins. Continue amiodarone drip Continue Toprol and mexiletine Follow-up 2D echo Cardiology planning cardiac cath today with possible ablation tomorrow Follow-up on cardiology recommendations Objective - Vital Signs Vital signs: Vital Signs Temp 98.1 F 02/26/23 08:00 Pulse 71 02/26/23 08:00 Resp 16 02/26/23 08:00 BP 104/59 02/26/23 08:00 Pulse Ox 97 02/26/23 08:00 FiO2 Intake & Output 02/25/23 02/26/23 02/26/23 18:59 06:59 18:59 Intake Total 218 658 Balance 218 658 Weight 105.5 kg Intake: Oral 218 658 Other: Voiding Method Toilet Diaper # Voids 4 1 1 # Bowel Movements 1 1 - Labs CBC & Chem 7: 02/26/23 10:42 02/26/23 10:42
--- NOTE | 2023-02-26 18:17 | P.PCN ---
Date of Procedure: 02/26/23 Operative Findings: Cardiac catheterization and percutaneous coronary intervention Performing physician Lan Valentin MD Procedure performed 1. Selective left coronary angiogram 2. An aortic root angiogram 3. Left heart catheterization 4. Successful stenting of extremely calcified and eccentric critical lesion involving the mid left anterior descending artery using a 3.25 x 23 mm Xience NORAH an excellent angiographic results and reduction of stenosis from 99% to 0% 5. Successful stenting of extremely calcified and eccentric a critical lesion involving the proximal left anterior descending artery using 3.5 x 18 mm Xience NORAH an accident fluorographic results and reduction of stenosis from 99% to 0% 6. Adjunctive use of intravascular ultrasound and lithotripsy balloon 7. Ultrasound-guided access of the right radial artery Indication This is a 72-year-old gentleman with a of cardiomyopathy who was admitted to the hospital with AICD shocks. His troponin was mildly elevated. Approach The right radial artery Complication None Level of sedation Moderate sedation length of 50 minutes Procedure description After obtaining an informed consent the patient was brought to the cardiac [employer]. The left radial artery was cannulated with a micropuncture technique under ultrasound guidance, the micropuncture wire passed easily and then I placed a 6 [place] sheath the right radial artery. I gave the patient 2 mg of verapamil intra-arterial and 5000 of heparin intravenous. Selective right coronary angiogram was attempted using JR4 catheter breath and rods and able to engage the right coronary artery. Selective left coronary angiogram was performed using JL 3.5 catheter. Left heart catheterization was performed using the JR4 catheter which crossed the aortic valve when I did pull back up towards the valve. After that I did intervene on the left anterior descending artery. Selective coronary angiogram The RCA was not opacified and it does not seems to be coming from the right coronary cusp. 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 The left main is extremely calcified with mild disease only. We LCx the large caliber vessel and it dominant vessel. The LCx also is extremely calcified with mild to moderate nonobstructive disease and no evidence of high-grade stenosis identified The LAD is a large caliber vessel with extreme amount of calcium and critical lesion involving the midportion there to be in the range of 99.9% Hemodynamic The LVEDP was about 6 mm medically with no significant gradient across the aortic valve PCI of the LAD Anticoagulation was initiated using heparin with continuous ACT monitoring. Tempting engaging in any left main coronary artery using CLS 3.5 guiding catheter was unsuccessful because the guide was not seated well in the left main coronary artery. At that point I was able reinflate the left main using an EBU 3.75 guiding catheter. The catheter was seated better in the left main coronary artery. Subsequently I did attempt passing the lesion in the mid left anterior descending artery using a whisper wire that was unsuccessful and was able to get it back up support from the backup catheter. Subsequently the wire was advanced to the the left anterior descending artery. Balloon angioplasty at that point was initiated using 1 mm balloon and subsequently 1.5 mm balloon and then 2.0 mm balloon and then 2.5 mm balloon. After that intravascular ultrasound was performed on the left anterior descending artery and showed a diameter of 3.5 mm in the proximal portion. The catheter was not advanced to the mid LAD because the LAD was extremely calcified and tortuous. At that point and because of the same support I needed I advanced the guide liner catheter to the distal guiding catheter. Subsequently I decided to use lithotripsy balloon which was 3.5 x 15 mm. I did balloon angioplasty using the lithotripsy balloon of the mid and proximal left anterior descending artery. After that for the mid LAD I deployed a 3.25 x 23 mm and for the proximal LAD I deployed a 3.5 x 15 mm stents. Both the stents were positioned under fluoroscopy guidance only about a millimeter overlap and then deployed under fluoroscopy guidance. Final angiogram showed excellent angiographic results and the procedure was completed with no complication. Conclusion 1. Critical disease involving the proximal and mid LAD with extremely calcified and eccentric lesion. I did successful stenting of the proximal and mid LAD with an excellent angiographic results as described above Postprocedure management Dual antiplatelet therapy Aggressive cholesterol control Risk factors modification
[2023-02-26] MEDS: MONTELUKAST 10 MG TAB PO SCH (20:19)
[2023-02-26] MEDS: TICAGRELOR 90 MG TAB PO SCH (22:19)
[2023-02-27] MEDS ORDERED: HEPARIN SODIUM,PORCINE 2,500 UNIT in SODIUM CHLORIDE 0.9% 250 ML IRRIGATION PRN (07:00)
[2023-02-27] MEDS ORDERED: HEPARIN SODIUM,PORCINE 10,000 UNIT in SODIUM CHLORIDE 0.9% 1,000 ML IRRIGATION PRN (07:00)
--- NOTE | 2023-02-27 07:01 | P.PN ---
Subjective Progress Note Date: 02/27/23 Principal diagnosis: CAD/PCI The patient is a 72-year-old gentleman with history of cardiomyopathy status post AICD as well as hypertension and dyslipidemia who was admitted to the hospital with AICD shocks. He was found to have mildly elevated troponin. Dr. Li recommended a heart catheterization which was performed yesterday and that showed subtotally occluded heavily calcified LAD which was stented in the proximal and midportion. 02/27/2023 The patient was seen and evaluated this morning. He reports shortness of breath with exertion but no pain in the chest. No dizziness or light and is in no feeling of heart racing or fluttering. He is possibly going for VT ablation later on today. He is on dual antiplatelet therapy beside that he is on intermediate intensity statin which I'm going to increase high intensity statin and he is also on beta jonas. From the cardiovascular standpoint of view, we'll continue the current medical regimen The examination is remarkable for mild bilateral expiratory wheezing. Assessment CAD and status post PCI of the LAD Cardiomyopathy AICD shocks Multiple comorbid conditions Plan Continue dual antiplatelet therapy and increase the dose of statin Continue anti-ischemic medication and cardiomyopathy medications including beta jonas Follow-up with the patient Objective - Vital Signs Vital signs: Vital Signs Temp 98.3 F 02/27/23 04:00 Pulse 61 02/27/23 04:00 Resp 16 02/27/23 04:00 BP 115/68 02/27/23 04:00 Pulse Ox 96 02/27/23 04:00 FiO2 Intake & Output 02/26/23 02/26/23 02/27/23 06:59 18:59 06:59 Intake Total 1126 Output Total 475 1 Balance 651 -1 Intake: IV 50 Oral 1076 Output: Urine 475 1 Other: # Voids 1 1 # Bowel Movements 1 - Labs CBC & Chem 7: 02/26/23 10:42 02/26/23 10:42 Labs: Abnormal Lab Results - Last 24 Hours (Table) 02/26/23 02/26/23 Range/Units 10:42 10:42 RBC 3.77 L (4.30-5.90) m/uL Hgb 11.8 L (13.0-17.5) gm/dL Hct 35.6 L (39.0-53.0) % Glucose 109 H (74-99) mg/dL Calcium 8.1 L (8.4-10.2) mg/dL Total Protein 5.0 L (6.3-8.2) g/dL Albumin 2.9 L (3.5-5.0) g/dL
[2023-02-27] MEDS: LEVALBUTEROL 1.25 MG INHALATION SCH ×3 (07:47→21:26)
[2023-02-27] MEDS: MEXILETINE 200 MG CAP PO SCH ×2 (08:28→19:04)
[2023-02-27] MEDS: FUROSEMIDE 40 MG TAB PO SCH (08:29)
[2023-02-27] MEDS: predniSONE 5 MG TAB PO SCH (08:29)
[2023-02-27] MEDS: SPIRONOLACTONE 25 MG TAB PO SCH (08:29)
[2023-02-27] MEDS: AMIODARONE 200 MG TAB PO SCH ×2 (08:29→19:04)
[2023-02-27] MEDS: ASPIRIN 81 MG PO SCH ×2 (08:29→20:02)
[2023-02-27] MEDS: TICAGRELOR 90 MG TAB PO SCH ×2 (08:29→20:02)
[2023-02-27 12:05] VITALS: BMI 32.4
[2023-02-27 12:05] LABS: Glucose,Whole Blood 102 mg/dL (70-110)
[2023-02-27] MEDS ORDERED: SODIUM CHLORIDE 0.9% 1,000 ML IV SCH ×2 (12:15)
[2023-02-27 12:23] LABS: African American GFR (CKD) 90 (>60 ml/min/1.73 sqM); Non-African American GFR(CKD) 77 (>60 ml/min/1.73 sqM)
[2023-02-27] MEDS: METOPROLOL SUCCINATE (ER) 50 MG TAB.ER.24H PO SCH (12:31)
[2023-02-27] MEDS: SODIUM CHLORIDE 0.9% 1,000 ML IV SCH (12:34)
[2023-02-27] MEDS ORDERED: MIDAZOLAM 2 MG/2 ML VIAL ONE (15:27)
[2023-02-27] MEDS ORDERED: fentaNYL (PF) 50 MCG/ML 2 ML AMP ONE (15:27)
[2023-02-27] MEDS ORDERED: diphenhydrAMINE 50 MG/ML 1 ML VIAL ONE (15:27)
[2023-02-27] MEDS ORDERED: IV FLUID CONTINUATION 1,000 ML IV ONE (15:27)
[2023-02-27] MEDS ORDERED: ceFAZolin 1,000 MG in SODIUM CHLORIDE 0.9% IRRIG BTL 250 ML IRRIGATION STA (15:30)
[2023-02-27] MEDS ORDERED: LIDOCAINE 1% INJ 10MG/ML (20 ML MDV) ONE ×2 (15:42→16:10)
[2023-02-27] MEDS ORDERED: LIDOCAINE 1% INJ 10MG/ML (30 ML VIAL-PF) SQ ONE (16:09)
[2023-02-27] MEDS ORDERED: LIDOCAINE 1% INJ 10MG/ML (20 ML MDV) SQ ONE (16:19)
[2023-02-27] MEDS ORDERED: ACETAMINOPHEN TAB 325 MG TAB PO PRN (17:11)
--- NOTE | 2023-02-27 17:20 | P.EPPROC ---
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 Pacing threshold 0.8 V at 0.5 ms, P waves 6 mV and pacing impedance 460 ohms RV ICD lead: Externalized lead on fluoroscopy but functioning normally Pacing threshold 1V @ 0.5 ms, R waves greater than 11 mV and pacing impedance 340 ohms High-voltage impedance 79 ohms Procedure details: Patient was brought to the EP lab in a fasting state. Written informed consent was obtained prior to the procedure. Options, pros and cons, benefits and risks and complications discussed with patient in detail prior to the procedure (shared decision making). Importance of continuing medical treatment emphasized. Alternatives discussed. Patient would like to proceed with dual-chamber ICD generator change. The left pectoral area was prepped and draped as a protocol. IV antibiotics administered 1% lidocaine was used for local anesthesia. A 4 cm incision was made parallel to the deltopectoral groove, about 1.5 cm medial to it. The incision was carried down to the level of the pectoralis muscle and the subfascial pocket was made. Hemostasis was assured. Partial capsulectomy Leads were quite adhered to the capsule Limited dissection to free the leads to allow for the exchange Chronic ICD generator explanted. New dual-chamber ICD implanted, high output device RUDOLPH [address]ER DR [id number] C ICD . Pocket irrigated with antibiotic solution Leads connected to the new ICD generator. Wound closed in 3 layers and dressed per protocol Dual ICD interrogated and programmed. Appropriate pacing parameters, antitachycardia therapies with antitachycardia pacing cardioversion defibrillations programmed. Or shocks at maximum output since patient is on oral amiodarone and mexiletine Patient tolerated the procedure well without any acute complications. See scanned device report in EMR for lead details
--- NOTE | 2023-02-27 18:40 | XR ---
EXAMINATION TYPE: XR chest 1V portable DATE OF EXAM: 02/27/2023 6:16 PM COMPARISON: Chest x-ray 02/24/2023 TECHNIQUE: XR chest 1V portable . CLINICAL INDICATION:Male, 72 years old with history of Lead placement check; FINDINGS: Lungs/Pleura: There is no evidence of pleural effusion, focal consolidation, or pneumothorax. Pulmonary vascularity: Interval improvement in mild pulmonary vascular congestion from 02/24/2023. Heart/mediastinum: Cardiomediastinal silhouette is prominent in size. Two lead cardiac conduction dev ice overlying the left hemithorax with lead tips projecting over the right ventricle and right atrium . Musculoskeletal: Degenerative changes of the shoulder joints. IMPRESSION: 1. No acute cardiopulmonary disease/process. Intervally improved pulmonary vascular congestion from alanna da silva examination. 2. 2-lead left-sided cardiac conduction device with leads projecting in appropriate position.
[2023-02-27] MEDS: MONTELUKAST 10 MG TAB PO SCH (20:02)
[2023-02-27] MEDS: ATORVASTATIN 80 MG TAB PO SCH ×2 (20:02→22:29)
[2023-02-27 20:25] VITALS: RESP 16
[2023-02-27] MEDS: SACUBITRIL/VALSARTAN 24 MG-26 MG TABLET PO SCH (22:28)
[2023-02-28] MEDS: AMIODARONE 200 MG TAB PO SCH ×2 (00:20→09:27)
[2023-02-28] MEDS: MEXILETINE 200 MG CAP PO SCH ×2 (00:20→09:27)
--- NOTE | 2023-02-28 07:18 | P.PN ---
Subjective Progress Note Date: 02/28/23 Principal diagnosis: CAD/PCI The patient is a 72-year-old gentleman with history of cardiomyopathy status post AICD as well as hypertension and dyslipidemia who was admitted to the hospital with AICD shocks. He was found to have mildly elevated troponin. Dr. Li recommended a heart catheterization which was performed yesterday and that showed subtotally occluded heavily calcified LAD which was stented in the proximal and midportion. 02/27/2023 The patient was seen and evaluated this morning. He reports shortness of breath with exertion but no pain in the chest. No dizziness or light and is in no feeling of heart racing or fluttering. He is possibly going for VT ablation later on today. He is on dual antiplatelet therapy beside that he is on intermediate intensity statin which I'm going to increase high intensity statin and he is also on beta jonas. From the cardiovascular standpoint of view, we'll continue the current medical regimen February [id number] Patient was seen and evaluated this morning. He is asymptomatic and hemodynamically stable. He underwent yesterday a generator change by Dr. Li. From the cardiovascular standpoint of view, the patient potentially can be discharged home. Continue dual antiplatelet therapy. The examination is remarkable for mild bilateral expiratory wheezing. Assessment CAD and status post PCI of the LAD Cardiomyopathy AICD shocks Multiple comorbid conditions Plan Continue dual antiplatelet therapy and increase the dose of statin Continue anti-ischemic medication and cardiomyopathy medications including beta jonas The patient Is discharged home Objective - Vital Signs Vital signs: Vital Signs Temp 97.5 F L 02/28/23 04:00 Pulse 69 02/28/23 04:00 Resp 16 02/28/23 04:00 BP 109/63 02/28/23 04:00 Pulse Ox 97 02/28/23 04:00 FiO2 Intake & Output 02/27/23 02/28/23 02/28/23 18:59 06:59 18:59 Intake Total 400 580 Balance 400 580 Weight 105.5 kg Intake: IV 400 Intake, IV Titration 400 Amount Sodium Chloride 0.9% 1, 400 000 ml @ 50 mls/hr IV . Q20H JOSE MIGUEL Rx#:[id number] ceFAZolin 2 gm In Sodium 0 Chloride 0.9% 50 ml @ 100 mls/hr IVPB Q6H JOSE MIGUEL Rx#: [id number] Oral 180 - Labs CBC & Chem 7: 02/26/23 10:42 02/27/23 11:27
[2023-02-28] MEDS: LEVALBUTEROL 1.25 MG INHALATION SCH ×2 (08:30→12:30)
[2023-02-28] MEDS ORDERED: EZETIMIBE 10 MG TAB PO SCH (09:00)
[2023-02-28] MEDS: SACUBITRIL/VALSARTAN 24 MG-26 MG TABLET PO SCH (09:27)
[2023-02-28] MEDS: ASPIRIN 81 MG PO SCH (09:27)
[2023-02-28] MEDS: SPIRONOLACTONE 25 MG TAB PO SCH (09:27)
[2023-02-28] MEDS: TICAGRELOR 90 MG TAB PO SCH (09:28)
[2023-02-28] MEDS: predniSONE 5 MG TAB PO SCH (09:28)
[2023-02-28] MEDS: SODIUM CHLORIDE 0.9% 1,000 ML IV SCH (09:48)
[2023-02-28] MEDS ORDERED: METOPROLOL SUCCINATE (ER) 25 MG TAB.ER.24H PO SCH (12:00)
[2023-02-28 12:14] VITALS: BP 132/75; TEMP 97.8
[2023-02-28 12:44] VITALS: PULSE 68
== END 2023-02-28 15:10 | disposition home or self-care (01) | DRG 245 ==
LOC: EC 06:19 → 3SCARD 07:09
PROVIDERS: ADMIT Hospitalist; ATTEND Hospitalist
PROC: 4A023N7 Measurement of Cardiac Sampling and Pressure, Left Heart, Percutaneous Approach (ICD-10-PCS; 2023-02-26)
PROC: B3101ZZ Fluoroscopy of Thoracic Aorta using Low Osmolar Contrast (ICD-10-PCS; 2023-02-26)
PROC: B2111ZZ Fluoroscopy of Multiple Coronary Arteries using Low Osmolar Contrast (ICD-10-PCS; 2023-02-26)
PROC: B240ZZ3 Ultrasonography of Single Coronary Artery, Intravascular (ICD-10-PCS; 2023-02-26)
PROC: 02F03ZZ Fragmentation in Coronary Artery, One Artery, Percutaneous Approach (ICD-10-PCS; 2023-02-26 10:25)
PROC: 027034Z Dilation of Coronary Artery, One Artery with Drug-eluting Intraluminal Device, Percutaneous Approach (ICD-10-PCS; 2023-02-26 10:25)
PROC: 0JPT0PZ Removal of Cardiac Rhythm Related Device from Trunk Subcutaneous Tissue and Fascia, Open Approach (ICD-10-PCS; 2023-02-27)
PROC: 0JH608Z Insertion of Defibrillator Generator into Chest Subcutaneous Tissue and Fascia, Open Approach (ICD-10-PCS; principal; 2023-02-27 18:25)
DX: T82.111A Breakdown (mechanical) of cardiac pulse generator (battery), initial encounter (principal); I42.8 Other cardiomyopathies; I47.20 Ventricular tachycardia, unspecified; I25.110 Atherosclerotic heart disease of native coronary artery with unstable angina pectoris; I11.0 Hypertensive heart disease with heart failure; I50.9 Heart failure, unspecified; J44.9 Chronic obstructive pulmonary disease, unspecified; E78.5 Hyperlipidemia, unspecified; E83.42 Hypomagnesemia; E87.6 Hypokalemia; Z86.718 Personal history of other venous thrombosis and embolism; Z79.899 Other long term (current) drug therapy; Z86.72 Personal history of thrombophlebitis; Z79.51 Long term (current) use of inhaled steroids; Z88.6 Allergy status to analgesic agent; Z88.5 Allergy status to narcotic agent; Z86.79 Personal history of other diseases of the circulatory system; Z87.891 Personal history of nicotine dependence; Z28.310 Unvaccinated for COVID-19; Z79.02 Long term (current) use of antithrombotics/antiplatelets; Z79.82 Long term (current) use of aspirin
CPT/HCPCS: 0715T; 33263; 36415; 71045; 80048; 80053; 80061; 82565; 83735; 84484; 85025; 85610; 85730; 92978; 93005; 93458; 94640; 94760; 96365; 96366; 96367; 96368; 99291

== ENCOUNTER 2023-03-14 07:45 | Observation (INO) | payer MEDICARE ==
[2023-03-14 08:09] LABS: Basophils % (A) 0 %; Eosinophils # (A) 0.1 k/uL (0-0.7); Eosinophils % (A) 1 %; HCT 35.2 % (39.0-53.0); HGB 12.5 gm/dL (13.0-17.5); Lymphocytes # (A) 2.2 k/uL (1.0-4.8); Lymphocytes % (A) 21 %; MCH 33.1 pg (25.0-35.0); MCHC 35.6 g/dL (31.0-37.0); Mean Platelet Volume 8.5; Monocytes # (A) 0.7 k/uL (0-1.0); Monocytes % (A) 6 %; Neutrophils # (A) 7.2 k/uL (1.3-7.7); Neutrophils % (A) 70 %; Platelet Count 204 k/uL (150-450); RBC 3.79 m/uL (4.30-5.90); RDW 13.9 % (11.5-15.5); WBC 10.2 k/uL (3.8-10.6)
[2023-03-14 08:30] LABS: ALT 22 U/L (4-49); AST 22 U/L (17-59); African American GFR (CKD) 58 (>60 ml/min/1.73 sqM); Albumin 3.4 g/dL (3.5-5.0); Alkaline Phosphatase 52 U/L (38-126); Anion Gap 7 mmol/L; Blood Urea Nitrogen 40 mg/dL (9-20); Calcium 8.4 mg/dL (8.4-10.2); Carbon Dioxide 23 mmol/L (22-30); Chloride 108 mmol/L (98-107); Glucose 93 mg/dL (74-99); Magnesium 2.3 mg/dL (1.6-2.3); Non-African American GFR(CKD) 50 (>60 ml/min/1.73 sqM); Potassium 3.7 mmol/L (3.5-5.1); Sodium 138 mmol/L (137-145); Total Bilirubin 0.7 mg/dL (0.2-1.3); Total Protein 5.6 g/dL (6.3-8.2)
--- NOTE | 2023-03-14 08:45 | ED ---
General Adult HPI - General Chief complaint: Dizziness Stated complaint: dizziness Time Seen by Provider: 03/14/23 07:45 Source: patient, EMS, RN notes reviewed, old records reviewed Mode of arrival: EMS Limitations: no limitations - History of Present Illness Initial comments: This is a 72-year-old male who presents to the emergency department stating that he had has been weak starting last night. Patient states 2 weeks ago he had his batteries were placed in his pacemaker and he had 2 stents placed at that time. Patient comes in today because he had multiple episodes weakness and some dizziness. 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 Patient denies any recent fever chills or cough per patient denies any nausea vomiting or diarrhea. Patient denies any chest pain palpitations or any difficulty breathing shortest breath. Patient denies any abdominal pain patient denies any nausea vomiting. - Related Data Home Medications Medication Instructions Recorded Confirmed Montelukast [Singulair] 10 mg PO HS 09/12/15 02/24/23 Spironolactone [Aldactone] 25 mg PO DAILY 09/12/15 02/24/23 Levalbuterol Hfa Inhaler [Xopenex 1 puff INHALATION RT-Q6H PRN 07/17/17 02/24/23 Hfa Inhaler] Levalbuterol Nebulized [Xopenex 1.25 mg INHALATION RT-TID 07/17/17 02/24/23 Nebulized] Sacubitril/Valsartan [Entresto 24 1 tab PO BID 07/17/17 02/24/23 mg-26 mg Tablet] predniSONE 5 mg PO DAILY 02/12/19 02/24/23 Mexiletine HCl 200 mg PO Q8H 01/30/23 02/24/23 Diphenox-Atrop 2.5-0.025 mg 1 tab PO DAILY PRN 02/24/23 02/24/23 [Lomotil] Previous Rx's Medication Instructions Recorded Furosemide [Lasix] 40 mg PO DAILY #30 tab 07/21/17 Amiodarone [Cordarone] 400 mg PO TID #100 tab 02/27/23 Aspirin EC [Ecotrin Low Dose] 81 mg PO DAILY #90 tab 02/27/23 Atorvastatin [Lipitor] 80 mg PO DAILY #90 tab 02/27/23 Ezetimibe [Zetia] 10 mg PO DAILY #90 tab 02/27/23 Metoprolol Succinate (ER) [Toprol 75 mg PO DAILY #145 tab 02/27/23 XL] Ticagrelor [Brilinta] 90 mg PO BID #180 tab 02/27/23 Aspirin 81 mg PO BID tab 02/28/23 Atorvastatin [Lipitor] 80 mg PO HS 30 Days #30 tab 02/28/23 Metoprolol Succinate (ER) [Toprol 75 mg PO DAILY@1200 30 Days #90 tab 02/28/23 XL] Ticagrelor [Brilinta] 90 mg PO BID tab 02/28/23 Allergies Allergy/AdvReac Type Severity Reaction Status Date / Time hydrocodone [From [place]] Allergy Anaphylaxis Verified 02/24/23 07:18 ibuprofen Allergy Anaphylaxis Verified 02/24/23 07:18 Review of Systems ROS Statement: Those systems with pertinent positive or pertinent negative responses have been documented in the HPI. ROS Other: All systems not noted in ROS Statement are negative. Past Medical History Past Medical History: Asthma, COPD, Hyperlipidemia Additional Past Medical History / Comment(s): VTach, nonischemic cardiomyopathy, CHF, organized left ventricular apical clot, previous DVT ablation, asthma requiring intubation twice, BRAIN BLEED WHILE ON BLOOD THINNER RX 2009, cataracts bilaterally History of Any Multi-Drug Resistant Organisms: None Reported Past Surgical History: AICD, EPS, Pacemaker Additional Past Surgical History / Comment(s): 12/07/15 EPS wtih VT ablation. Other surgical hx: BRAIN SURGERY FOLLOWING BLEED. AICD/PACEMAKER, [facility]. generator change, Defibrilator testing Past Anesthesia/Blood Transfusion Reactions: No Reported Reaction Type of Cardiac Device: Permanent Pacemaker, AICD Device Placement Date:: 2005 implanted with gen change 2012 Past Psychological History: No Psychological Hx Reported Smoking Status: Never smoker Past Alcohol Use History: None Reported Past Drug Use History: None Reported - Past Family History Mother Family Medical History: No Reported History Additional Family Medical History / Comment(s): Mother at age 92 yrs. Father Family Medical History: No Reported History Additional Family Medical History / Comment(s): Father is healthy and 95 yrs old. General Exam - General Exam Comments Initial Comments: GENERAL: Patient is well-developed and well-nourished. Patient is nontoxic and well- hydrated and is in mild distress. ENT: Neck is soft and supple. No significant lymphadenopathy is noted. Oropharynx is clear. Moist mucous membranes. Neck has full range of motion without eliciting any pain. EYES: The sclera were anicteric and conjunctiva were pink and moist. Extraocular movements were intact and pupils were equal round and reactive to light. Eyelids were unremarkable. PULMONARY: Unlabored respirations. Good breath sounds bilaterally. No audible rales rhonchi or wheezing was noted. CARDIOVASCULAR: Patient is bradycardic at about 50 beats a minute ABDOMEN: Soft and nontender with normal bowel sounds. SKIN: Skin is clear with no lesions or rashes and otherwise unremarkable. NEUROLOGIC: Patient is alert and oriented x3. Cranial nerves II through XII are grossly intact. Motor and sensory are also intact. Normal speech, volume and content. Symmetrical smile. MUSCULOSKELETAL: Normal extremities with adequate strength and full range of motion. No lower extremity swelling or edema. No calf tenderness. LYMPHATICS: No significant lymphadenopathy is noted PSYCHIATRIC: Normal psychiatric evaluation. Limitations: no limitations Course Vital Signs 03/14/23 03/14/23 03/14/23 07:49 08:08 08:15 Temperature 97.4 F L 97.4 F L Pulse Rate 50 L 50 L Pulse Rate [ 51 L Right Pulse Oximetery] Pulse Rate [ Right Sitting] Pulse Rate [ Right Standing] Respiratory 18 18 Rate Blood Pressure 113/77 113/77 Blood Pressure [Right Arm Sitting] Blood Pressure [Right Arm Standing] Blood Pressure 106/66 [Right Arm Supine] O2 Sat by Pulse 98 98 Oximetry 03/14/23 03/14/23 03/14/23 08:20 08:21 08:40 Temperature Pulse Rate 49 L Pulse Rate [ Right Pulse Oximetery] Pulse Rate [ 50 L Right Sitting] Pulse Rate [ 57 L Right Standing] Respiratory 18 Rate Blood Pressure 113/63 Blood Pressure 90/75 [Right Arm Sitting] Blood Pressure 92/55 [Right Arm Standing] Blood Pressure [Right Arm Supine] O2 Sat by Pulse 98 Oximetry 03/14/23 03/14/23 03/14/23 09:00 09:30 10:00 Temperature Pulse Rate 51 L 49 L 56 L Pulse Rate [ Right Pulse Oximetery] Pulse Rate [ Right Sitting] Pulse Rate [ Right Standing] Respiratory 22 18 18 Rate Blood Pressure 108/60 106/70 107/64 Blood Pressure [Right Arm Sitting] Blood Pressure [Right Arm Standing] Blood Pressure [Right Arm Supine] O2 Sat by Pulse 98 100 100 Oximetry Medical Decision Making - Medical Decision Making EKG is interpreted by myself shows electronically paced rhythm at 52 bpm [place] interval is 2:30 QRS is 160 QT interval 522 QTC is 501. Was pt. sent in by a medical professional or institution (, PA, DINKEY ENGINE OPERATOR, urgent care, hospital, or snf...) When possible be specific @ -No Did you speak to anyone other than the patient for history (EMS, parent, family, police, friend...)? What history was obtained from this source @ -No Did you review nursing and triage notes (agree or disagree)? Why? @ -I reviewed and agree with nursing and triage notes Were old charts reviewed (outside hosp., previous admission, EMS record, old EKG, old radiological studies, urgent care reports/EKG's, snf records)? Report findings @ -I reviewed prior charts prior lab work Differential Diagnosis (chest pain, altered mental status, abdominal pain women, abdominal pain men, vaginal bleeding, weakness, fever, dyspnea, syncope, headache, dizziness, GI bleed, back pain, seizure, CVA, palpatations, mental health, musculoskeletal)? @ -Differential Syncope: Valvular disease, hypertrophic cardiomyopathy, pulmonary embolism, tamponade, tachycardia, bradycardia, RI, hypovolemia, hemorrhage, dissection, anemia, intracranial hemorrhage, seizure, hypoglycemia, carbon monoxide poisoning, this is not meant to be an all-inclusive list. EKG interpreted by me (3pts min.). @ -As above X-rays interpreted by me (1pt min.). @ -Chest x-ray shows no acute abnormality CT interpreted by me (1pt min.). @ -None done U/S interpreted by me (1pt. min.). @ -None done What testing was considered but not performed or refused? (CT, X-rays, U/S, labs)? Why? @ -None What meds were considered but not given or refused? Why? @ -None Did you discuss the management of the patient with other professionals (professionals i.e. , PA, DINKEY ENGINE OPERATOR, lab, RT, psych nurse, social worker clinical, wireless sales associate, teacher, corporate banking officer, shoe parts caser)? Give summary @ -I spoke with Dr. Majano the patient admitted the patient I wrote admitting orders Was smoking cessation discussed for >3mins.? @ -No Was critical care preformed (if so, how long)? @ -No Were there social determinants of health that impacted care today? How? (Homelessness, low income, unemployed, alcoholism, drug addiction, transportation, low edu. Level, literacy, decrease access to med. care, intermediate, rehab)? @ -No Was there de-escalation of care discussed even if they declined (Discuss DNR or withdrawal of care, Hospice)? DNR status @ -No What co-morbidities impacted this encounter? (DM, HTN, Smoking, COPD, CAD, Cancer, CVA, ARF, Chemo, Hep., AIDS, mental health diagnosis, sleep apnea, morb id obesity)? @ -None Was patient admitted / discharged? Hospital course, mention meds given and route, prescriptions, significant lab abnormalities, going to OR and other pertinent info. @ -Near syncope at home and we got him up to walk around he felt too unsteady to go home and he was refusing to go home so they want to stay and have cardi ology see him in the hospital. [facility] patient thinks it's related to his medication even though the symptoms started last night and his medication changed 2 weeks ago. Patient denies any other associated symptoms. Undiagnosed new problem with uncertain prognosis? @ -No Drug Therapy requiring intensive monitoring for toxicity (Heparin, Nitro, Insulin, Cardizem)? @ -No Were any procedures done? @ -No Diagnosis/symptom? @ -Near syncope Acute, or Chronic, or Acute on Chronic? @ -Acute Uncomplicated (without systemic symptoms) or Complicated (systemic symptoms)? @ -Complicated Side effects of treatment? @ -No Exacerbation, Progression, or Severe Exacerbation? @ -No Poses a threat to life or bodily function? How? (Chest pain, USA, RI, pneumonia, PE, COPD, DKA, ARF, appy, cholecystitis, CVA, Diverticulitis, Homicidal, Suicidal, threat to staff... and all critical care pts) @ -No - Lab Data Result diagrams: 03/14/23 08:01 03/14/23 08:01 Lab Results 03/14/23 03/14/23 03/14/23 Range/Units 08:01 08:01 08:01 WBC 10.2 (3.8-10.6) k/uL RBC 3.79 L (4.30-5.90) m/uL Hgb 12.5 L (13.0-17.5) gm/dL Hct 35.2 L (39.0-53.0) % MCV 93.0 (80.0-100.0) fL MCH 33.1 (25.0-35.0) pg MCHC 35.6 (31.0-37.0) g/dL RDW 13.9 (11.5-15.5) % Plt Count 204 (150-450) k/uL MPV 8.5 Neutrophils % 70 % Lymphocytes % 21 % Monocytes % 6 % Eosinophils % 1 % Basophils % 0 % Neutrophils # 7.2 (1.3-7.7) k/uL Lymphocytes # 2.2 (1.0-4.8) k/uL Monocytes # 0.7 (0-1.0) k/uL Eosinophils # 0.1 (0-0.7) k/uL Basophils # 0.0 (0-0.2) k/uL PT 10.9 (9.0-12.0) sec INR 1.0 (<1.2) APTT 22.0 (22.0-30.0) sec Sodium 138 (137-145) mmol/L Potassium 3.7 (3.5-5.1) mmol/L Chloride 108 H (98-107) mmol/L Carbon Dioxide 23 (22-30) mmol/L Anion Gap 7 mmol/L BUN 40 H (9-20) mg/dL Creatinine 1.39 H (0.66-1.25) mg/dL Est GFR (CKD-EPI)AfAm 58 (>60 ml/min/1.73 sqM) Est GFR (CKD-EPI)NonAf 50 (>60 ml/min/1.73 sqM) Glucose 93 (74-99) mg/dL Plasma Lactic Acid [place] (0.7-2.0) mmol/L Calcium 8.4 (8.4-10.2) mg/dL Magnesium 2.3 (1.6-2.3) mg/dL Total Bilirubin 0.7 (0.2-1.3) mg/dL AST 22 (17-59) U/L ALT 22 (4-49) U/L Alkaline Phosphatase 52 (38-126) U/L Troponin I (0.000-0.034) ng/mL Total Protein 5.6 L (6.3-8.2) g/dL Albumin 3.4 L (3.5-5.0) g/dL Urine Color Urine Appearance (Clear) Urine pH (5.0-8.0) Ur Specific [place] (1.001-1.035) Urine Protein (Negative) Urine Glucose (UA) (Negative) Urine Ketones (Negative) Urine Blood (Negative) Urine Nitrite (Negative) Urine Bilirubin (Negative) Urine Urobilinogen (<2.0) mg/dL Ur Leukocyte Esterase (Negative) 03/14/23 03/14/23 03/14/23 Range/Units 08:01 08:01 10:06 WBC (3.8-10.6) k/uL RBC (4.30-5.90) m/uL Hgb (13.0-17.5) gm/dL Hct (39.0-53.0) % MCV (80.0-100.0) fL MCH (25.0-35.0) pg MCHC (31.0-37.0) g/dL RDW (11.5-15.5) % Plt Count (150-450) k/uL MPV Neutrophils % % Lymphocytes % % Monocytes % % Eosinophils % % Basophils % % Neutrophils # (1.3-7.7) k/uL Lymphocytes # (1.0-4.8) k/uL Monocytes # (0-1.0) k/uL Eosinophils # (0-0.7) k/uL Basophils # (0-0.2) k/uL PT (9.0-12.0) sec INR (<1.2) APTT (22.0-30.0) sec Sodium (137-145) mmol/L Potassium (3.5-5.1) mmol/L Chloride (98-107) mmol/L Carbon Dioxide (22-30) mmol/L Anion Gap mmol/L BUN (9-20) mg/dL Creatinine (0.66-1.25) mg/dL Est GFR (CKD-EPI)AfAm (>60 ml/min/1.73 sqM) Est GFR (CKD-EPI)NonAf (>60 ml/min/1.73 sqM) Glucose (74-99) mg/dL Plasma Lactic Acid [place] 1.4 (0.7-2.0) mmol/L Calcium (8.4-10.2) mg/dL Magnesium (1.6-2.3) mg/dL Total Bilirubin (0.2-1.3) mg/dL AST (17-59) U/L ALT (4-49) U/L Alkaline Phosphatase (38-126) U/L Troponin I <0.012 (0.000-0.034) ng/mL Total Protein (6.3-8.2) g/dL Albumin (3.5-5.0) g/dL Urine Color Yellow Urine Appearance Clear (Clear) Urine pH 5.5 (5.0-8.0) Ur Specific [place] 1.022 (1.001-1.035) Urine Protein Trace H (Negative) Urine Glucose (UA) Negative (Negative) Urine Ketones Negative (Negative) Urine Blood Negative (Negative) Urine Nitrite Negative (Negative) Urine Bilirubin Negative (Negative) Urine Urobilinogen <2.0 (<2.0) mg/dL Ur Leukocyte Esterase Negative (Negative) Disposition Clinical Impression: Near syncope Disposition: ADMITTED IP TO THIS HOSP Referrals: Alex Dominguez MD [Primary Care Provider] - 1-2 days Time of Disposition: 12:30
--- NOTE | 2023-03-14 08:48 | XR ---
EXAMINATION TYPE: XR chest 2V DATE OF EXAM: 03/14/2023 COMPARISON: 02/27/2023 HISTORY: Shortness of breath TECHNIQUE: Frontal and lateral views of the chest are obtained. FINDINGS: Scattered senescent parenchymal changes noted. Hyperinflation compatible with COPD. No evidence for infiltrate. No evidence for atelectasis. Heart size is stable. Mediastinal structures are stable and grossly unremarkable. No evidence for hilar prominence. Degenerative changes dorsal spine. IMPRESSION: 1. No evidence for acute pulmonary disease.
[2023-03-14 09:07] LABS: Prothrombin Time 10.9 sec (9.0-12.0)
[2023-03-14] MEDS ORDERED: SODIUM CHLORIDE 0.9% 1,000 ML IV STA (09:31)
[2023-03-14 10:14] LABS: Appearance,Urine Clear (Clear); Bilirubin,Urine Negative (Negative); Blood,Urine Negative (Negative); Color,Urine Yellow; Glucose,Urine (UA) Negative (Negative); Ketones,Urine Negative (Negative); Leukocyte Esterase,Urine Negative (Negative); Nitrite,Urine Negative (Negative); PH, Urine 5.5 (5.0-8.0); Protein,Urine Trace (Negative); Specific Gravity,Urine 1.022 (1.001-1.035); Urobilinogen,Urine <2.0 mg/dL (<2.0)
[2023-03-14] MEDS ORDERED: SODIUM CHLORIDE 0.9% 1,000 ML IV ONE (12:32)
[2023-03-14] MEDS ORDERED: [UNRECOGNIZED DRUG - OTHER] INHALATION PRN (15:52)
[2023-03-14] MEDS ORDERED: DIPHENOX-ATROP 2.5-0.025 MG 1 EACH TAB PO PRN (15:52)
[2023-03-14] MEDS ORDERED: ALBUTEROL NEBULIZED 2.5 MG/3 ML INHALATION PRN (15:52)
[2023-03-14] MEDS ORDERED: XOPENEX INHALATION PRN (16:30)
[2023-03-14] MEDS: MEXILETINE 200 MG CAP PO SCH (17:16)
[2023-03-14] MEDS: LEVALBUTEROL 1.25 MG INHALATION PRN (19:56)
[2023-03-14] MEDS: MONTELUKAST 10 MG TAB PO SCH (20:30)
[2023-03-14] MEDS: TICAGRELOR 90 MG TAB PO SCH (20:30)
[2023-03-14] MEDS: ATORVASTATIN 80 MG TAB PO SCH (20:30)
[2023-03-15] MEDS: MEXILETINE 200 MG CAP PO SCH ×4 (00:18→23:47)
--- NOTE | 2023-03-15 00:35 | P.HPIM ---
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 he could hold the chair and walk short distance. pt denies chest pain , has little dyspnea, no coughing, no specific GI, urinary , or neurlogical symptoms denes smoking, alchol, illicit drug abuse he eats well he a little bradycardic arond 50 heart rate creatinine slightly up at 1.39 rest of cbc, bmp and liver enz are unremarkable ua is negative chest xray is negative for acute process ekg; atrial paced Review of Systems CONSTITUTIONAL: No fever, no malaise, no fatigue. HEENT: No recent visual problems or hearing problems. Denied any sore throat. CARDIOVASCULAR: No orthopnea, PND, no palpitations, no syncope. PULMONARY: No shortness of breath, no cough, no hemoptysis. GASTROINTESTINAL: No diarrhea, no nausea, no vomiting, no abdominal pain. Normoactive bowel sounds. NEUROLOGICAL: No headaches, no weakness, no numbness. HEMATOLOGICAL: Denies any bleeding or petechiae. GENITOURINARY: Denies any burning micturition, frequency, or urgency. MUSCULOSKELETAL/RHEUMATOLOGICAL: Denies any joint pain, swelling, or any muscle pain. ENDOCRINE: Denies any polyuria or polydipsia. Past Medical History Past Medical History: Asthma, COPD, Hyperlipidemia Additional Past Medical History / Comment(s): VTach, nonischemic cardiomyopathy, CHF, organized left ventricular apical clot, previous DVT ablation, asthma requiring intubation twice, BRAIN BLEED WHILE ON BLOOD THINNER RX 2009, cataracts bilaterally History of Any Multi-Drug Resistant Organisms: None Reported Past Surgical History: AICD, EPS, Pacemaker Additional Past Surgical History / Comment(s): 12/07/15 EPS wt VT ablation. Other surgical hx: BRAIN SURGERY FOLLOWING BLEED. AICD/PACEMAKER, [facility]. generator change, Defibrilator testing Past Anesthesia/Blood Transfusion Reactions: No Reported Reaction Type of Cardiac Device: Permanent Pacemaker, AICD Device Placement Date:: 2005 implanted with gen change 2012 Past Psychological History: No Psychological Hx Reported Smoking Status: Never smoker Past Alcohol Use History: None Reported Past Drug Use History: None Reported - Past Family History Mother Family Medical History: No Reported History Additional Family Medical History / Comment(s): Mother at age 92 yrs. Father Family Medical History: No Reported History Additional Family Medical History / Comment(s): Father is healthy and 95 yrs old. Medications and Allergies Home Medications Medication Instructions Recorded Confirmed Type Montelukast [Singulair] 10 mg PO HS 09/12/15 03/14/23 History Spironolactone [Aldactone] 25 mg PO DAILY 09/12/15 03/14/23 History Levalbuterol Hfa Inhaler [Xopenex 1 puff INHALATION RT-Q6H PRN 07/17/17 03/14/23 History Hfa Inhaler] Levalbuterol Nebulized [Xopenex 1.25 mg INHALATION RT-TID 07/17/17 03/14/23 History Nebulized] Sacubitril/Valsartan [Entresto 24 1 tab PO BID 07/17/17 03/14/23 History mg-26 mg Tablet] Furosemide [Lasix] 40 mg PO DAILY #30 tab 07/21/17 03/14/23 Rx predniSONE 5 mg PO DAILY 02/12/19 03/14/23 History Mexiletine HCl 200 mg PO Q8H 01/30/23 03/14/23 History Diphenox-Atrop 2.5-0.025 mg 1 tab PO DAILY PRN 02/24/23 03/14/23 History [Lomotil] Aspirin EC [Ecotrin Low Dose] 81 mg PO DAILY #90 tab 02/27/23 03/14/23 Rx Ezetimibe [Zetia] 10 mg PO DAILY #90 tab 02/27/23 03/14/23 Rx Metoprolol Succinate (ER) [Toprol 75 mg PO DAILY@1200 30 Days #90 tab 02/28/23 03/14/23 Rx XL] Ticagrelor [Brilinta] 90 mg PO BID tab 02/28/23 03/14/23 Rx Amiodarone [Cordarone] See Taper PO DIRECTED 03/14/23 03/14/23 History Atorvastatin [Lipitor] 80 mg PO HS 03/14/23 03/14/23 History Allergies Allergy/AdvReac Type Severity Reaction Status Date / Time hydrocodone [From [place]] Allergy Anaphylaxis Verified 03/14/23 12:56 ibuprofen Allergy Anaphylaxis Verified 03/14/23 12:56 Physical Exam Vitals: Vital Signs Temp Pulse Pulse Pulse Pulse Resp BP 03/14/23 14:00 49 L 14 114/61 03/14/23 13:10 49 L 15 115/68 03/14/23 12:30 50 L 15 125/70 03/14/23 12:00 52 L 16 122/66 03/14/23 11:00 49 L 16 138/87 03/14/23 10:00 56 L 18 107/64 03/14/23 09:30 49 L 18 106/70 03/14/23 09:00 51 L 22 108/60 03/14/23 08:40 49 L 18 113/63 03/14/23 08:21 57 L 03/14/23 08:20 50 L 03/14/23 08:15 51 L 03/14/23 08:08 97.4 F L 50 L 18 113/77 03/14/23 07:49 97.4 F L 50 L 18 113/77 BP BP BP Pulse Ox 03/14/23 14:00 97 03/14/23 13:10 99 03/14/23 12:30 100 03/14/23 12:00 98 03/14/23 11:00 100 03/14/23 10:00 100 03/14/23 09:30 100 03/14/23 09:00 98 03/14/23 08:40 98 03/14/23 08:21 92/55 03/14/23 08:20 90/75 03/14/23 08:15 106/66 03/14/23 08:08 98 03/14/23 07:49 98 Intake and Output 03/14/23 03/14/23 03/14/23 06:59 14:59 22:59 Other: Weight 83.007 kg GENERAL: The patient is alert and oriented x3, not in any acute distress. Well developed, well nourished. HEENT: Pupils are round and equally reacting to light. EOMI. No scleral icterus. No conjunctival pallor. Normocephalic, atraumatic. No pharyngeal erythema. No thyromegaly. CARDIOVASCULAR: S1 and S2 present. No murmurs, rubs, or gallops. PULMONARY: Chest is clear to auscultation, no wheezing , no crackles. ABDOMEN: Soft, nontender, nondistended, normoactive bowel sounds. No palpable organomegaly. MUSCULOSKELETAL: No joint swelling or deformity. EXTREMITIES: No cyanosis, clubbing, or pedal edema. NEUROLOGICAL: Gross neurological examination did not reveal any focal deficits. SKIN: No rashes. no petechiae. Results CBC & Chem 7: 03/14/23 08:01 03/14/23 08:01 Labs: Abnormal Lab Results - Last 24 Hours (Table) 03/14/23 03/14/23 03/14/23 Range/Units 08:01 08:01 10:06 RBC 3.79 L (4.30-5.90) m/uL Hgb 12.5 L (13.0-17.5) gm/dL Hct 35.2 L (39.0-53.0) % Chloride 108 H (98-107) mmol/L BUN 40 H (9-20) mg/dL Creatinine 1.39 H (0.66-1.25) mg/dL Total Protein 5.6 L (6.3-8.2) g/dL Albumin 3.4 L (3.5-5.0) g/dL Urine Protein Trace H (Negative) Assessment and Plan Assessment: episode of generalized weakness with dizziness suscipous for presyncopy acute kid injury , mild history of VTach, s/p AICD, EPS, Pacemaker nonischemic cardiomyopathy h/o Asthma, COPD, Hyperlipidemia h/o organized left ventricular apical clot, h/o asthma requiring intubation twice, h/o BRAIN BLEED WHILE ON BLOOD THINNER RX 2009 Plan: continue with telemetry monitorying continue with antiarrythmic medication and moitor heart rate and rhythme cardiology consult pt recieved iv fluid in ER, Given h/o chf we will hold more iv fluid and montor virals and creatinine Labs and medication reviewed.. Continue same treatment. Continue with symptomatic treatment. Resume home medication. Monitor lytes and vitals. DVT and GI prophylaxis. Further recommendations depends on the clinical course of the patient DVT prophylaxis: aspirine and brillinta GI Prophylaxis: Pepcid prognosis is guarded
[2023-03-15 08:01] LABS: Basophils % (A) 0 %; Eosinophils # (A) 0.1 k/uL (0-0.7); Eosinophils % (A) 1 %; HCT 34.5 % (39.0-53.0); HGB 11.7 gm/dL (13.0-17.5); Lymphocytes # (A) 1.6 k/uL (1.0-4.8); Lymphocytes % (A) 21 %; MCH 32.6 pg (25.0-35.0); MCHC 34.1 g/dL (31.0-37.0); MCV 95.6 fL (80.0-100.0); Monocytes # (A) 0.5 k/uL (0-1.0); Monocytes % (A) 7 %; Neutrophils # (A) 5.4 k/uL (1.3-7.7); Neutrophils % (A) 70 %; Platelet Count 142 k/uL (150-450); RBC 3.61 m/uL (4.30-5.90); RDW 13.8 % (11.5-15.5); WBC 7.7 k/uL (3.8-10.6)
[2023-03-15] MEDS: LEVALBUTEROL 1.25 MG INHALATION PRN ×2 (08:16→14:53)
[2023-03-15 08:22] LABS: African American GFR (CKD) 82 (>60 ml/min/1.73 sqM); Anion Gap 3 mmol/L; Blood Urea Nitrogen 22 mg/dL (9-20); Calcium 7.9 mg/dL (8.4-10.2); Carbon Dioxide 24 mmol/L (22-30); Chloride 111 mmol/L (98-107); Glucose 74 mg/dL (74-99); Non-African American GFR(CKD) 71 (>60 ml/min/1.73 sqM); Sodium 138 mmol/L (137-145)
[2023-03-15 08:23] LABS: Magnesium 2.2 mg/dL (1.6-2.3); Potassium 3.8 mmol/L (3.5-5.1)
[2023-03-15] MEDS ORDERED: FAMOTIDINE 20 MG/2 ML VIAL IV SCH (09:00)
[2023-03-15] MEDS: predniSONE 5 MG TAB PO SCH (09:05)
[2023-03-15] MEDS: TICAGRELOR 90 MG TAB PO SCH ×2 (09:05→20:39)
[2023-03-15] MEDS: EZETIMIBE 10 MG TAB PO SCH (09:05)
[2023-03-15] MEDS: ASPIRIN 81 MG PO SCH (09:05)
[2023-03-15] MEDS: FAMOTIDINE 20 MG TAB PO SCH ×2 (09:05→20:38)
[2023-03-15] MEDS: SPIRONOLACTONE 25 MG TAB PO SCH (09:05)
--- NOTE | 2023-03-15 10:51 | P.CNPUL ---
History of Present Illness Consult date: 03/15/23 Requesting physician: Blaise E Sheet Reason for consult: COPD Chief complaint: dizziness and near syncope. History of present illness: this is a 72-year-old white male, familiar to my service, known to have history of COPD, patient is normally maintained on multiple bronchodilators and he is also on prednisone at 5 mg a day for his underlying COPD. Patient is also known to have history of ventricular tachycardia, had been following up with cardiology. Patient has a defibrillator in place.patient was last admitted 2 weeks ago to the hospital, and he was having intermittent AICD shocks. He was seen by cardiology on consultation, and he underwent cardiac catheterization, patient also underwent evaluation of his defibrillator. His cardiac catheterization showed subtotally occluded calcified LAD, and it was stented in the proximal and midportion by Dr. Tyler.patient also had new dual-chamber ICD implantation, appropriate pacing parameters anti-tachycardic therapies were addressed by Dr. Peraza on the case.this time the patient came in with basically intermittent episodes of dizziness especially when he stands up, he feels generally weak and almost about to fall. He had no shortness of breath, no cough, no wheezing, no chest pain. I was basically asked to see him for his underlying COPD which seems to be relatively stable and asymptomatic. As a matter of fact the patient has no active pulmonary symptoms whatsoever at this point.CBC is relatively normal hemoglobin is however 11.7. Basic metabolic profile is normal renal profile is normal.chest x-ray showed no evidence of acute pulmonary disease Review of Systems CONSTITUTIONAL: No fever, no malaise, no fatigue. HEENT: intermittent dizziness and almost falling/near syncope symptoms. But no clear-cut symptoms of vertigo. CARDIOVASCULAR:as noted in HPI. PULMONARY: as noted in HPI, patient is basically asymptomatic. GASTROINTESTINAL: negative GI symptoms. NEUROLOGICAL: as noted in HPI HEMATOLOGICAL: Denies any bleeding or petechiae. GENITOURINARY: Denies any burning micturition, frequency, or urgency. MUSCULOSKELETAL/RHEUMATOLOGICAL: Denies any joint pain, swelling, or any muscle pain. ENDOCRINE: Denies any polyuria or polydipsia. P Past Medical History Past Medical History: Asthma, COPD, Hyperlipidemia Additional Past Medical History / Comment(s): VTach, nonischemic cardiomyopathy, CHF, organized left ventricular apical clot, previous DVT ablation, asthma requiring intubation twice, BRAIN BLEED WHILE ON BLOOD THINNER RX 2009, cataracts bilaterally History of Any Multi-Drug Resistant Organisms: None Reported Past Surgical History: AICD, EPS, Pacemaker Additional Past Surgical History / Comment(s): 12/07/15 EPS wtih VT ablation. Other surgical hx: BRAIN SURGERY FOLLOWING BLEED. AICD/PACEMAKER, [facility]. generator change, Defibrilator testing Past Anesthesia/Blood Transfusion Reactions: No Reported Reaction Type of Cardiac Device: Permanent Pacemaker, AICD Device Placement Date:: 2005 implanted with gen change 2012 Past Psychological History: No Psychological Hx Reported Smoking Status: Never smoker Past Alcohol Use History: None Reported Past Drug Use History: None Reported - Past Family History Mother Family Medical History: No Reported History Additional Family Medical History / Comment(s): Mother at age 92 yrs. Father Family Medical History: No Reported History Additional Family Medical History / Comment(s): Father is healthy and 95 yrs old. Medications and Allergies Home Medications Medication Instructions Recorded Confirmed Type Montelukast [Singulair] 10 mg PO HS 09/12/15 03/14/23 History Spironolactone [Aldactone] 25 mg PO DAILY 09/12/15 03/14/23 History Levalbuterol Hfa Inhaler [Xopenex 1 puff INHALATION RT-Q6H PRN 07/17/17 03/14/23 History Hfa Inhaler] Levalbuterol Nebulized [Xopenex 1.25 mg INHALATION RT-TID 07/17/17 03/14/23 History Nebulized] Sacubitril/Valsartan [Entresto 24 1 tab PO BID 07/17/17 03/14/23 History mg-26 mg Tablet] Furosemide [Lasix] 40 mg PO DAILY #30 tab 07/21/17 03/14/23 Rx predniSONE 5 mg PO DAILY 02/12/19 03/14/23 History Mexiletine HCl 200 mg PO Q8H 01/30/23 03/14/23 History Diphenox-Atrop 2.5-0.025 mg 1 tab PO DAILY PRN 02/24/23 03/14/23 History [Lomotil] Aspirin EC [Ecotrin Low Dose] 81 mg PO DAILY #90 tab 02/27/23 03/14/23 Rx Ezetimibe [Zetia] 10 mg PO DAILY #90 tab 02/27/23 03/14/23 Rx Metoprolol Succinate (ER) [Toprol 75 mg PO DAILY@1200 30 Days #90 tab 02/28/23 03/14/23 Rx XL] Ticagrelor [Brilinta] 90 mg PO BID tab 02/28/23 03/14/23 Rx Amiodarone [Cordarone] See Taper PO DIRECTED 03/14/23 03/14/23 History Atorvastatin [Lipitor] 80 mg PO HS 03/14/23 03/14/23 History Allergies Allergy/AdvReac Type Severity Reaction Status Date / Time hydrocodone [From [place]] Allergy Anaphylaxis Verified 03/14/23 12:56 ibuprofen Allergy Anaphylaxis Verified 03/14/23 12:56 Physical Exam Vitals: Vital Signs Temp Pulse Pulse Resp BP BP Pulse Ox 03/15/23 09:28 60 18 03/15/23 08:54 97.4 F L 60 18 132/73 99 03/15/23 08:28 60 03/15/23 08:16 58 L 03/15/23 04:00 98.2 F 55 L 14 118/65 93 L 03/15/23 00:00 98.2 F 52 L 16 123/71 97 03/14/23 20:08 55 L 03/14/23 20:01 52 L 03/14/23 20:00 98 F 50 L 16 95/57 98 03/14/23 15:28 98.2 F 50 L 18 114/55 98 03/14/23 14:00 49 L 14 114/61 97 03/14/23 13:10 49 L 15 115/68 99 03/14/23 12:30 50 L 15 125/70 100 03/14/23 12:00 52 L 16 122/66 98 03/14/23 11:00 49 L 16 138/87 100 Intake and Output 03/14/23 03/15/23 03/15/23 22:59 06:59 14:59 Intake Total 240 180 Output Total 500 Balance 240 -320 Intake: Oral 240 180 Output: Urine 500 Other: Voiding Method Toilet Toilet Toilet Urinal Urinal Urinal # Voids 1 3 # Bowel Movements 1 Weight 83.007 kg Physical Exam: Revealed 72-year-old white male in no distress. On room air. Head: Atraumatic, normocephalic. HEENT:[Neck is supple.] [No neck masses.] [No thyromegaly.] [No JVD.] Chest: [Clear throughout, no crackles, no rhonchi, no wheezes.] Cardiac Exam: [Normal S1 and S2, no S3 gallop, no murmur.] Abdomen: [Soft, nontender, no megaly, no rebound, no guarding, normal bowel so unds.] Extremities: [No clubbing, no edema, no cyanosis.] Neurological Exam: [No focal neurologic deficit.]alert oriented 3. Psychiatric: Normal mood affect and normal status examination. Results - Laboratory Findings CBC and BMP: 03/15/23 06:48 03/15/23 06:48 PT/INR, D-dimer PT 10.9 sec (9.0-12.0) 03/14/23 08:01 INR 1.0 (<1.2) 03/14/23 08:01 Abnormal lab findings: Abnormal Labs 03/14/23 03/14/23 03/14/23 08:01 08:01 10:06 RBC 3.79 L Hgb 12.5 L Hct 35.2 L Plt Count Chloride 108 H BUN 40 H Creatinine 1.39 H Calcium Total Protein 5.6 L Albumin 3.4 L Urine Protein Trace H 03/15/23 03/15/23 06:48 06:48 RBC 3.61 L Hgb 11.7 L Hct 34.5 L Plt Count 142 L Chloride 111 H BUN 22 H Creatinine Calcium 7.9 L Total Protein Albumin Urine Protein - Diagnostic Findings Chest x-ray: image reviewed (as noted in HPI) Assessment and Plan Assessment: impression: Near syncopal episodes etiology not clear, but felt to be cardiac unless for otherwise. History of ventricular tachycardia, Patient has new AICD, placed 2 weeks ago. Nonischemic cardiomyopathy History of asthmatic bronchitis presently stable asymptomatic, patient has Gold stage III COPD. Dyslipidemia benign essential hypertension Previous history of [employer] bleed requiring craniotomy Recommendation: Considering the patient has no active pulmonary issues I would recommend that the patient remains on his same pulmonary medications. Cardiology to address his symptoms, I believe the symptoms are cardiac unless for otherwise. Continue Xopenex, patient has is on Xopenex. Resume his prednisone at 5 mg daily, check serum cortisol level. We will continue to follow Time with Patient: Greater than 30
--- NOTE | 2023-03-15 12:49 | P.CRDCN ---
History of Present Illness Consult date: 03/15/23 Reason for Consult (text): Near syncope History of present illness: History of present illness: This is a 72 year old male patient of Dr. Li with past medical history of single-vessel coronary artery disease, nonischemic cardiomyopathy status post AICD, ventricular tachycardia, hyperlipidemia. We have been asked to evaluate the patient for near syncope. Patient had recent hospitalization for defibrillator shock in early February his ongoing for a heart catheterization and stenting of the mid LAD and proximal LAD and subsequently underwent battery change on his AICD. Prior to discharge, medication changes were made to include increasing amiodarone to 400 mg 3 times daily on a tapering dose, Toprol-XL was increased to 75 mg he was continued on Lasix, Entresto and mexiletine, started on Brilinta. Patient states that he has been feeling well following discharge until yesterday when he had weakness and dizziness. Patient states that he ended up waking up at 2 AM and try to the bathroom but his legs gave out on him. He returned to his bed. Later he got up to go the bathroom and he held onto chandra. He contacted his daughter and she called 911. He denies having any chest pain, no cough or sputum production, no fever or chills, no palpitations. No AICD discharges. The patient has not received Entresto, Toprol, Lasix or amiodarone since he presented to hospital and feels his symptoms are improved. He is concerned that his symptoms are related to his medications. Orthostatic vital signs negative. EKG paced rhythm Chest x-ray: No evidence of acute pulmonary disease. WBC 7.7, hemoglobin 11.7, platelet count 142. INR 1. Sodium 138, potassium 3.8, chloride 111, CO2 24, BUN initially 40 and creatinine 1.39. Repeat BUN 22 and creatinine 1.05. Troponin negative 1. Liver function tests are normal. Urinalysis negative for infection. Home cardiac medications: Amiodarone 400 mg daily, aspirin 81 mg twice daily, atorvastatin 80 mg daily, Zetia 10 mg daily, Lasix 40 mg daily, Toprol XL 75 mg daily, Mexiletine milligrams every 8 hours, Entresto 2426 milligrams twice daily, Aldactone 25 mg daily, Brilinta 90 mg twice daily 02/11/2023 EP procedure: Cinefluoroscopy of the leads was performed, Atrial lead, active fix, in the right atrial appendage. No fractures or breaks. ICD lead shows evidence of deteriorating and may implant new ICD lead along with ICD generator change. 02/26/2023 PCI of both the mid LAD and the proximal LAD 02/27/2023 dual-chamber ICD generator change Echocardiogram performed in the office 06/2022 revealed EF 30%, mild mitral regurgitation, mild tricuspid regurgitation, pulmonary artery systolic pressure of 39 mmHg, mild pulmonary regurgitation Review Of Systems: At the time of my evaluation: Constitutional: No fever, no chills. Reports weakness. EENT: No headache. Reports dizziness. Lungs: No shortness of breath, cough, no sputum production. No wheezing. Cardiovascular: No chest pain, no lower extremity edema. No palpitations. No paroxysmal nocturnal dyspnea. No orthopnea. Reports lightheadedness or dizziness. No syncopal episodes. Abdominal: No abdominal pain. No nausea, vomiting. No diarrhea. No constipation. No bloody or tarry stools. Musculoskeletal: No myalgias. No muscle weakness, no frequent falls. Integumentary: No wounds. No rash. Noted bruising. Neurologic: No aphasia. No facial droop. No change in mentation. No head injury. No headache. Physical examination: Gen: This is a 72-year-old male. He is resting in bed and appears very comfortable and in no acute distress. VS: reviewed HEENT: Head is atraumatic, normocephalic. Pupils equal, round. Sclerae is anicteric. NECK: Supple. No JVD. LUNGS: Clear to auscultation. No wheezes or rhonchi. No intercostal retractions. HEART: Regular rate and rhythm. No murmur. Swelling in the ICD pocket, no reddness or warmth ABDOMEN: Soft No tenderness. EXTREMITIES: No pedal edema. No calf tenderness. NEUROLOGICAL: Patient is awake, alert and oriented x3. Assessment: Weakness and dizziness Acute kidney injury Single-vessel coronary artery disease status post stent 2 in the LAD Nonischemic cardio myopathy status post AICD with recent generator change Ventricular tachycardia Hyperlipidemia Hematoma at ICD surgical site Plan: Continue patient on home cardiac medications with the following changes Continue amiodarone at 400mg daily Continue Toprol-XL at 50 mg daily Further recommendations to follow based upon clinical course Thank you kindly for this consultation. Nurse practitioner note has been reviewed, I agree with documented findings and plan of care. Patient was seen and examined. Past Medical History Past Medical History: Asthma, COPD, Hyperlipidemia Additional Past Medical History / Comment(s): VTach, nonischemic cardiomyopathy, CHF, organized left ventricular apical clot, previous DVT ablation, asthma requiring intubation twice, BRAIN BLEED WHILE ON BLOOD THINNER RX 2009, cataract s bilaterally History of Any Multi-Drug Resistant Organisms: None Reported Past Surgical History: AICD, EPS, Pacemaker Additional Past Surgical History / Comment(s): 12/07/15 EPS wtih VT ablation. Other surgical hx: BRAIN SURGERY FOLLOWING BLEED. AICD/PACEMAKER, [facility]. generator change, Defibrilator testing Past Anesthesia/Blood Transfusion Reactions: No Reported Reaction Type of Cardiac Device: Permanent Pacemaker, AICD Device Placement Date:: 2005 implanted with gen change 2012 Past Psychological History: No Psychological Hx Reported Smoking Status: Never smoker Past Alcohol Use History: None Reported Past Drug Use History: None Reported - Past Family History Mother Family Medical History: No Reported History Additional Family Medical History / Comment(s): Mother at age 92 yrs. Father Family Medical History: No Reported History Additional Family Medical History / Comment(s): Father is healthy and 95 yrs old. Medications and Allergies Home Medications Medication Instructions Recorded Confirmed Type Montelukast [Singulair] 10 mg PO HS 09/12/15 03/14/23 History Spironolactone [Aldactone] 25 mg PO DAILY 09/12/15 03/14/23 History Levalbuterol Hfa Inhaler [Xopenex 1 puff INHALATION RT-Q6H PRN 07/17/17 03/14/23 History Hfa Inhaler] Levalbuterol Nebulized [Xopenex 1.25 mg INHALATION RT-TID 07/17/17 03/14/23 History Nebulized] Sacubitril/Valsartan [Entresto 24 1 tab PO BID 07/17/17 03/14/23 History mg-26 mg Tablet] Furosemide [Lasix] 40 mg PO DAILY #30 tab 07/21/17 03/14/23 Rx predniSONE 5 mg PO DAILY 02/12/19 03/14/23 History Mexiletine HCl 200 mg PO Q8H 01/30/23 03/14/23 History Diphenox-Atrop 2.5-0.025 mg 1 tab PO DAILY PRN 02/24/23 03/14/23 History [Lomotil] Aspirin EC [Ecotrin Low Dose] 81 mg PO DAILY #90 tab 02/27/23 03/14/23 Rx Ezetimibe [Zetia] 10 mg PO DAILY #90 tab 02/27/23 03/14/23 Rx Metoprolol Succinate (ER) [Toprol 75 mg PO DAILY@1200 30 Days #90 tab 02/28/23 03/14/23 Rx XL] Ticagrelor [Brilinta] 90 mg PO BID tab 02/28/23 03/14/23 Rx Amiodarone [Cordarone] See Taper PO DIRECTED 03/14/23 03/14/23 History Atorvastatin [Lipitor] 80 mg PO HS 03/14/23 03/14/23 History Allergies Allergy/AdvReac Type Severity Reaction Status Date / Time hydrocodone [From [place]] Allergy Anaphylaxis Verified 03/14/23 12:56 ibuprofen Allergy Anaphylaxis Verified 03/14/23 12:56 Physical Exam Vitals: Vital Signs Temp Pulse Pulse Resp BP BP Pulse Ox 03/15/23 08:28 60 03/15/23 08:16 58 L 03/15/23 04:00 98.2 F 55 L 14 118/65 93 L 03/15/23 00:00 98.2 F 52 L 16 123/71 97 03/14/23 20:08 55 L 03/14/23 20:01 52 L 03/14/23 20:00 98 F 50 L 16 95/57 98 03/14/23 15:28 98.2 F 50 L 18 114/55 98 03/14/23 14:00 49 L 14 114/61 97 03/14/23 13:10 49 L 15 115/68 99 03/14/23 12:30 50 L 15 125/70 100 03/14/23 12:00 52 L 16 122/66 98 03/14/23 11:00 49 L 16 138/87 100 03/14/23 10:00 56 L 18 107/64 100 03/14/23 09:30 49 L 18 106/70 100 03/14/23 09:00 51 L 22 108/60 98 03/14/23 08:40 49 L 18 113/63 98 Intake and Output 03/14/23 03/15/23 03/15/23 22:59 06:59 14:59 Intake Total 240 180 Output Total 500 Balance 240 -320 Intake: Oral 240 180 Output: Urine 500 Other: Voiding Method Toilet Toilet Urinal Urinal # Voids 1 3 # Bowel Movements 1 Weight 83.007 kg Results 03/15/23 06:48 03/15/23 06:48 Cardiac Enzymes 03/14/23 Range/Units 08:01 Troponin I <0.012 (0.000-0.034) ng/mL Coagulation 03/14/23 Range/Units 08:01 PT 10.9 (9.0-12.0) sec APTT 22.0 (22.0-30.0) sec CBC 03/15/23 Range/Units 06:48 WBC 7.7 (3.8-10.6) k/uL RBC 3.61 L (4.30-5.90) m/uL Hgb 11.7 L (13.0-17.5) gm/dL Hct 34.5 L (39.0-53.0) % Plt Count 142 L (150-450) k/uL Comprehensive Metabolic Panel 03/15/23 Range/Units 06:48 Sodium 138 (137-145) mmol/L Potassium 3.8 (3.5-5.1) mmol/L Chloride 111 H (98-107) mmol/L Carbon Dioxide 24 (22-30) mmol/L BUN 22 H (9-20) mg/dL Creatinine 1.05 (0.66-1.25) mg/dL Glucose 74 (74-99) mg/dL Calcium 7.9 L (8.4-10.2) mg/dL Current Medications Generic Name Dose Route Start Last Admin Trade Name Freq PRN Reason Stop Dose Admin Aspirin 81 mg 03/15/23 09:00 Aspirin 81 Mg PO DAILY [facility] Atorvastatin Calcium 80 mg 03/14/23 21:00 03/14/23 20:30 Atorvastatin 80 Mg Tab PO 80 mg HS [facility] Administration Diphenoxylate HCl/Atropine 1 each 03/14/23 15:52 Diphenox-Atrop 2.5-0.025 Mg 1 Each Tab PO DAILY PRN Diarrhea Ezetimibe 10 mg 03/15/23 09:00 Ezetimibe 10 Mg Tab PO DAILY [facility] Famotidine 20 mg 03/15/23 09:00 Famotidine 20 Mg Tab PO BID [facility] Mexiletine HCl 200 mg 03/14/23 16:00 03/15/23 00:18 Mexiletine 200 Mg Cap PO 200 mg Q8H [facility] MIGUEL Administration Montelukast Sodium 10 mg 03/14/23 21:00 03/14/23 20:30 Montelukast 10 Mg Tab PO 10 mg HS JOSE MIGUEL Administration Xopenex 1.25 Mg 1 each 03/14/23 16:28 03/15/23 08:16 Nebulizer INHALATION 1 each RT-Q6H PRN Administration Shortness Of Breath Xopenex Hfa Inhaler 1 each 03/14/23 16:30 45 Mcg/Puff INHALATION RT-Q6H PRN Shortness Of Breath Prednisone 5 mg 03/15/23 09:00 Prednisone 5 Mg Tab PO DAILY [facility] Spironolactone 25 mg 03/15/23 09:00 Spironolactone 25 Mg Tab PO DAILY [facility] Ticagrelor 90 mg 03/14/23 21:00 03/14/23 20:30 Ticagrelor 90 Mg Tab PO 90 mg BID JOSE MIGUEL Administration Intake and Output 03/14/23 03/15/23 03/15/23 22:59 06:59 14:59 Intake Total 240 180 Output Total 500 Balance 240 -320 Intake: Oral 240 180 Output: Urine 500 Other: Voiding Method Toilet Toilet Urinal Urinal # Voids 1 3 # Bowel Movements 1 Weight 83.007 kg 03/15/23 06:48 03/15/23 06:48
[2023-03-15] MEDS: AMIODARONE 200 MG TAB PO SCH (13:30)
[2023-03-15] MEDS: METOPROLOL SUCCINATE (ER) 50 MG TAB.ER.24H PO SCH (13:30)
[2023-03-15] MEDS ORDERED: XOPENEX INHALATION SCH (14:00)
[2023-03-15] MEDS ORDERED: XOPENEX INHALATION PRN (15:02)
[2023-03-15] MEDS: LEVALBUTEROL 1.25 MG INHALATION SCH ×2 (15:08→20:11)
--- NOTE | 2023-03-15 16:16 | P.PN ---
Subjective this is a pleasant 72 yo M with past medical hisotry of multiple medical problema as below presents because this behavioral intervention specialist around 2 am pt got up to go to the restroom , when he felt dizzy and his legs gave way he managed to hold and did not fool , he was not feeling well. he could hold the chair and walk short distance. pt denies chest pain , has little dyspnea, no coughing, no specific GI, urinary , or neurlogical symptoms denes smoking, alchol, illicit drug abuse he eats well he a little bradycardic arond 50 heart rate creatinine slightly up at 1.39 rest of cbc, bmp and liver enz are unremarkable ua is negative chest xray is negative for acute process ekg; atrial paced 03/13/2023 Patient with no significant symptoms. Still complains from dizziness and balance problem Vitas looks stable, discussed with staff to check orthostatic vital 03/15/2023 Patient presents with dizziness and still complaining of from the same with b olus problem when he walks however he denies any specific weakness or tingling in his legs or arms while he is lying in bed. Also he denies headache. No blurred vision or double vision. No slurred speech. Also is hemodynamically stable. No fever. I discussed with the staff to check orthostatic vitals. Cardiology input is appreciated patient was started on amiodarone. His continued on aspirin and brillinta Creatinine improved. Number IV fluid We will check CT of the brain Objective - Vital Signs Vital signs: Vital Signs Temp 97.4 F L 03/15/23 08:54 Pulse 56 L 03/15/23 15:58 Resp 18 03/15/23 15:58 BP 122/60 03/15/23 15:58 Pulse Ox 96 03/15/23 15:58 FiO2 Intake & Output 03/14/23 03/15/23 03/15/23 18:59 06:59 18:59 Intake Total 240 180 Output Total 800 Balance 240 -620 Weight 83.007 kg Intake: Oral 240 180 Output: Urine 800 Other: Voiding Method Toilet Toilet Urinal Urinal # Voids 3 # Bowel Movements 1 - Exam GENERAL: The patient is alert and oriented x3, not in any acute distress. Well developed, well nourished. HEENT: Pupils are round and equally reacting to light. EOMI. No scleral icterus. No conjunctival pallor. Normocephalic, atraumatic. No pharyngeal erythema. No thyromegaly. CARDIOVASCULAR: S1 and S2 present. No murmurs, rubs, or gallops. PULMONARY: Chest is clear to auscultation, no wheezing , no crackles. ABDOMEN: Soft, nontender, nondistended, normoactive bowel sounds. No palpable organomegaly. MUSCULOSKELETAL: No joint swelling or deformity. EXTREMITIES: No cyanosis, clubbing, or pedal edema. NEUROLOGICAL: Gross neurological examination did not reveal any focal deficits. SKIN: No rashes. no petechiae. - Labs CBC & Chem 7: 03/15/23 06:48 03/15/23 06:48 Labs: Abnormal Lab Results - Last 24 Hours (Table) 03/15/23 03/15/23 Range/Units 06:48 06:48 RBC 3.61 L (4.30-5.90) m/uL Hgb 11.7 L (13.0-17.5) gm/dL Hct 34.5 L (39.0-53.0) % Plt Count 142 L (150-450) k/uL Chloride 111 H (98-107) mmol/L BUN 22 H (9-20) mg/dL Calcium 7.9 L (8.4-10.2) mg/dL Assessment and Plan Assessment: episode of generalized weakness with dizziness suscipous for presyncopy acute kid injury , mild history of VTach, s/p AICD, EPS, Pacemaker nonischemic cardiomyopathy h/o Asthma, COPD, Hyperlipidemia h/o organized left ventricular apical clot, h/o asthma requiring intubation twice, h/o BRAIN BLEED WHILE ON BLOOD THINNER RX 2009 Plan: continue with telemetry monitorying continue with antiarrythmic medication and moitor heart rate and rhythme cardiology consult pt recieved iv fluid in ER, Given h/o chf we will hold more iv fluid and montor virals and creatinine Labs and medication reviewed.. Continue same treatment. Continue with symptomatic treatment. Resume home medication. Monitor lytes and vitals. DVT and GI prophylaxis. Further recommendations depends on the clinical course of the patient DVT prophylaxis: aspirine and brillinta GI Prophylaxis: Pepcid prognosis is guarded
--- NOTE | 2023-03-15 17:02 | CT ---
EXAMINATION TYPE: CT brain wo con CT DLP: 1170.70 mGycm, Automated exposure control for dose reduction was used. DATE OF EXAM: 03/15/2023 4:55 PM COMPARISON: Prior CT Brain from 01/30/2023 . CLINICAL INDICATION:Male, 72 years old with history of dizzy, Dizziness. Hx of brain bleed x7yrs ago. TECHNIQUE: Brain: Multiple axial CT images of the brain were obtained without IV contrast. Coronal and sagittal reformats reviewed. FINDINGS: Brain: Extra-axial spaces: No abnormal extra-axial fluid collections. Ventricular system: Within normal limits Cerebral parenchyma: No acute intraparenchymal hemorrhage or mass effect. The contreras-white junction is well differentiated. Scattered hypoattenuating areas are seen within the white matter. Similar large r confluent area of white matter hypodensity within the left frontal lobe. Cerebellum: Unremarkable. Mass effect: No evidence of midline shift. Intracranial vasculature: Atherosclerotic calcifications of the intracranial vessels. Soft tissues: Normal. Calvarium/osseous structures: No depressed skull fracture. Bilateral remote frontal craniotomy defect s. Paranasal sinuses and mastoid air cells: Clear Visualized orbits: Orbital contents are intact. IMPRESSION: 1. No acute intracranial process. No significant change from prior examination. 2. Nonspecific white matter changes most prominent within the left frontal lobe likely secondary to remote injury.
[2023-03-15] MEDS: ATORVASTATIN 80 MG TAB PO SCH (20:38)
[2023-03-15] MEDS: MONTELUKAST 10 MG TAB PO SCH (20:38)
[2023-03-16] MEDS: LEVALBUTEROL 1.25 MG INHALATION SCH ×4 (02:08→20:06)
[2023-03-16] MEDS: ASPIRIN 81 MG PO SCH (08:00)
[2023-03-16] MEDS: MEXILETINE 200 MG CAP PO SCH ×2 (08:00→16:04)
[2023-03-16] MEDS: FAMOTIDINE 20 MG TAB PO SCH ×2 (08:01→22:02)
[2023-03-16] MEDS: AMIODARONE 200 MG TAB PO SCH (08:01)
[2023-03-16] MEDS: TICAGRELOR 90 MG TAB PO SCH ×2 (08:01→22:02)
[2023-03-16] MEDS: EZETIMIBE 10 MG TAB PO SCH (08:01)
[2023-03-16] MEDS: predniSONE 5 MG TAB PO SCH (08:01)
[2023-03-16] MEDS: SPIRONOLACTONE 25 MG TAB PO SCH (08:01)
--- NOTE | 2023-03-16 11:36 | P.PN ---
Subjective Progress Note Date: 03/16/23 Principal diagnosis: Near syncope this is a 72-year-old white male, familiar to my service, known to have history of COPD, patient is normally maintained on multiple bronchodilators and he is also on prednisone at 5 mg a day for his underlying COPD. Patient is also known to have history of ventricular tachycardia, had been following up with cardiology. Patient has a defibrillator in place.patient was last admitted 2 weeks ago to the hospital, and he was having intermittent AICD shocks. He was seen by cardiology on consultation, and he underwent cardiac catheterization, patient also underwent evaluation of his defibrillator. His cardiac catheterization showed subtotally occluded calcified LAD, and it was stented in the proximal and midportion by Dr. Tyler.patient also had new dual-chamber ICD implantation, appropriate pacing parameters anti-tachycardic therapies were addressed by Dr. Peraza on the case.this time the patient came in with basically intermittent episodes of dizziness especially when he stands up, he feels generally weak and almost about to fall. He had no shortness of breath, no cough, no wheezing, no chest pain. I was basically asked to see him for his underlying COPD which seems to be relatively stable and asymptomatic. As a matter of fact the patient has no active pulmonary symptoms whatsoever at this point.CBC is relatively normal hemoglobin is however 11.7. Basic metabolic profile is normal renal profile is normal.chest x-ray showed no evidence of acute pulmonary disease Today on 03/16/23, patient seems to be doing much better today, no active pulmonary symptoms, no evidence of active COPD, his neurological symptoms have significantly improved, seen by cardiology, advised to continue his home medications, continued amiodarone at 400 mg daily continue Toprol at 50 mg daily no other recommendations made. CT brain is basically nondiagnostic. He did have some prominent changes noted in the left frontal lobe felt to be most likely secondary to remote injury. Objective - Vital Signs Vital signs: Vital Signs Temp 97.9 F 03/16/23 07:56 Pulse 69 03/16/23 10:19 Resp 18 03/16/23 10:19 BP 120/64 03/16/23 07:56 Pulse Ox 97 03/16/23 07:56 FiO2 Intake & Output 03/15/23 03/16/23 03/16/23 18:59 06:59 18:59 Intake Total 298 120 Output Total 800 100 Balance -502 -100 120 Intake: Oral 298 120 Output: Urine 800 100 Other: Voiding Method Toilet Toilet Toilet Urinal Urinal Urinal # Voids 1 - Exam Physical Exam: Revealed 72-year-old white male in no distress. On room air. Head: Atraumatic, normocephalic. HEENT:[Neck is supple.] [No neck masses.] [No thyromegaly.] [No JVD.] Chest: [Clear throughout, no crackles, no rhonchi, no wheezes.] Cardiac Exam: [Normal S1 and S2, no S3 gallop, no murmur.] Abdomen: [Soft, nontender, no megaly, no rebound, no guarding, normal bowel sounds.] Extremities: [No clubbing, no edema, no cyanosis.] Neurological Exam: [No focal neurologic deficit.]alert oriented 3. Psychiatric: Normal mood affect and normal status examination. - Labs CBC & Chem 7: 03/15/23 06:48 03/15/23 06:48 Assessment and Plan Assessment: impression: Near syncopal episodes etiology not clear, but felt to be cardiac unless for otherwise. History of ventricular tachycardia, Patient has new AICD, placed 2 weeks ago. Nonischemic cardiomyopathy History of asthmatic bronchitis presently stable asymptomatic, patient has Gold stage III COPD. 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 We will continue to follow Time with Patient: Less than 30
[2023-03-16] MEDS: METOPROLOL SUCCINATE (ER) 50 MG TAB.ER.24H PO SCH (12:49)
--- NOTE | 2023-03-16 12:50 | P.PN ---
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 he could hold the chair and walk short distance. pt denies chest pain , has little dyspnea, no coughing, no specific GI, urinary , or neurlogical symptoms denes smoking, alchol, illicit drug abuse he eats well he a little bradycardic arond 50 heart rate creatinine slightly up at 1.39 rest of cbc, bmp and liver enz are unremarkable ua is negative chest xray is negative for acute process ekg; atrial paced 03/13/2023 Patient with no significant symptoms. Still complains from dizziness and balance problem Vitas looks stable, discussed with staff to check orthostatic vital 03/15/2023 Patient presents with dizziness and still complaining of from the same with b olus problem when he walks however he denies any specific weakness or tingling in his legs or arms while he is lying in bed. Also he denies headache. No blurred vision or double vision. No slurred speech. Also is hemodynamically stable. No fever. I discussed with the staff to check orthostatic vitals. Cardiology input is appreciated patient was started on amiodarone. His continued on aspirin and brillinta Creatinine improved. Number IV fluid We will check CT of the brain 03/16/23 Patient dizziness is improving but not completely resolved. CT of the brain was NEGATIVE. Orthostatic was checked is negative. But since his is significantly improving we will wait for another 24 hours Cardiology team recommended to continue with Lopressor 50 mg and amiodarone 40 mg which her home medication. Also patient is on aspirin and brilinta Pulmonary team input is also appreciated. Objective - Vital Signs Vital signs: Vital Signs Temp 97.9 F 03/16/23 07:56 Pulse 69 03/16/23 10:19 Resp 18 03/16/23 10:19 BP 120/64 03/16/23 07:56 Pulse Ox 97 03/16/23 07:56 FiO2 Intake & Output 03/15/23 03/16/23 03/16/23 18:59 06:59 18:59 Intake Total 298 120 Output Total 800 100 Balance -502 -100 120 Intake: Oral 298 120 Output: Urine 800 100 Other: Voiding Method Toilet Toilet Toilet Urinal Urinal Urinal # Voids 1 - Exam GENERAL: The patient is alert and oriented x3, not in any acute distress. Well developed, well nourished. HEENT: Pupils are round and equally reacting to light. EOMI. No scleral icterus. No conjunctival pallor. Normocephalic, atraumatic. No pharyngeal erythema. No thyromegaly. CARDIOVASCULAR: S1 and S2 present. No murmurs, rubs, or gallops. PULMONARY: Chest is clear to auscultation, no wheezing , no crackles. ABDOMEN: Soft, nontender, nondistended, normoactive bowel sounds. No palpable organomegaly. MUSCULOSKELETAL: No joint swelling or deformity. EXTREMITIES: No cyanosis, clubbing, or pedal edema. NEUROLOGICAL: Gross neurological examination did not reveal any focal deficits. SKIN: No rashes. no petechiae. - Labs CBC & Chem 7: 03/15/23 06:48 03/15/23 06:48 Assessment and Plan Assessment: episode of generalized weakness with dizziness suscipous for presyncopy acute kid injury , mild history of VTach, s/p AICD, EPS, Pacemaker nonischemic cardiomyopathy h/o Asthma, COPD, Hyperlipidemia h/o organized left ventricular apical clot, h/o asthma requiring intubation twice, h/o BRAIN BLEED WHILE ON BLOOD THINNER RX 2009 Plan: continue with telemetry monitorying continue with antiarrythmic medication and moitor heart rate and rhythme cardiology consult is appreciated Monitor creatinine, currently improving. Labs and medication reviewed.. Continue same treatment. Continue with symptomatic treatment. Resume home medication. Monitor lytes and vitals. DVT and GI prophylaxis. Further recommendations depends on the clinical course of the patient DVT prophylaxis: aspirine and brillinta GI Prophylaxis: Pepcid prognosis is guarded
[2023-03-16 13:02] LABS: African American GFR (CKD) 83 (>60 ml/min/1.73 sqM); Anion Gap 5 mmol/L; Blood Urea Nitrogen 17 mg/dL (9-20); Calcium 8.1 mg/dL (8.4-10.2); Carbon Dioxide 25 mmol/L (22-30); Chloride 106 mmol/L (98-107); Glucose 90 mg/dL (74-99); Non-African American GFR(CKD) 72 (>60 ml/min/1.73 sqM); Potassium 3.6 mmol/L (3.5-5.1); Sodium 136 mmol/L (137-145)
--- NOTE | 2023-03-16 13:22 | P.PN ---
Subjective Progress Note Date: 03/16/23 History of present illness: This is a 72 year old male patient of Dr. Li with past medical history of single-vessel coronary artery disease, nonischemic cardiomyopathy status post AICD, ventricular tachycardia, hyperlipidemia. We have been asked to evaluate the patient for near syncope. Patient had recent hospitalization for defibrillator shock in early February his ongoing for a heart catheterization and stenting of the mid LAD and proximal LAD and subsequently underwent battery change on his AICD. Prior to discharge, medication changes were made to include increasing amiodarone to 400 mg 3 times daily on a tapering dose, Toprol-XL was increased to 75 mg he was continued on Lasix, Entresto and mexiletine, started on Brilinta. Patient states that he has been feeling well following discharge until yesterday when he had weakness and dizziness. Patient states that he ended up waking up at 2 AM and try to the bathroom but his legs gave out on him. He returned to his bed. Later he got up to go the bathroom and he held onto chandra. He contacted his daughter and she called 911. He denies having any chest pain, no cough or sputum production, no fever or chills, no palpitations. No AICD discharges. The patient has not received Entresto, Toprol, Lasix or amiodarone since he presented to hospital and feels his symptoms are improved. He is concerned that his symptoms are related to his medications. Orthostatic vital signs negative. EKG paced rhythm Chest x-ray: No evidence of acute pulmonary disease. WBC 7.7, hemoglobin 11.7, platelet count 142. INR 1. Sodium 138, potassium 3 .8, chloride 111, CO2 24, BUN initially 40 and creatinine 1.39. Repeat BUN 22 and creatinine 1.05. Troponin negative 1. Liver function tests are normal. Urinalysis negative for infection. Home cardiac medications: Amiodarone 400 mg daily, aspirin 81 mg twice daily, atorvastatin 80 mg daily, Zetia 10 mg daily, Lasix 40 mg daily, Toprol XL 75 mg daily, Mexiletine milligrams every 8 hours, Entresto 2426 milligrams twice daily, Aldactone 25 mg daily, Brilinta 90 mg twice daily 02/11/2023 EP procedure: Cinefluoroscopy of the leads was performed, Atrial lead, active fix, in the right atrial appendage. No fractures or breaks. ICD lead shows evidence of deteriorating and may implant new ICD lead along with ICD generator change. 02/26/2023 PCI of both the mid LAD and the proximal LAD 02/27/2023 dual-chamber ICD generator change Echocardiogram performed in the office 06/2022 revealed EF 30%, mild mitral regurgitation, mild tricuspid regurgitation, pulmonary artery systolic pressure of 39 mmHg, mild pulmonary regurgitation 03/16 patient is seen today in follow-up.renal function has normalized with BUN 22 and creatinine 1.0. Hemoglobin is 11.7. Cortisol level 10. Telemetry is bradycardia and atrial pacing. CAT scan of the brain finding no acute abnormality. Physical examination: Gen: This is a 72-year-old male. He is resting in bed and appears very comfortable and in no acute distress. VS: reviewed HEENT: Head is atraumatic, normocephalic. Pupils equal, round. Sclerae is anicteric. NECK: Supple. No JVD. LUNGS: Clear to auscultation. No wheezes or rhonchi. No intercostal retractions. HEART: Regular rate and rhythm. No murmur. Swelling in the ICD pocket, no reddn ess or warmth ABDOMEN: Soft No tenderness. EXTREMITIES: No pedal edema. No calf tenderness. NEUROLOGICAL: Patient is awake, alert and oriented x3. Assessment: Weakness and dizziness Acute kidney injury Single-vessel coronary artery disease status post stent 2 in the LAD Nonischemic cardio myopathy status post AICD with recent generator change Ventricular tachycardia Hyperlipidemia Hematoma at ICD surgical site Plan: Continue patient on home cardiac medications with the following changes Continue amiodarone at 400mg daily Continue Toprol-XL at 50 mg daily Patient may follow-up in the office in one week with Dr. Li Cardiology will sign off this case and follow on an as-needed basis. Please reconsult for any new concerns. Nurse practitioner note has been reviewed, I agree with documented findings and plan of care. Patient was seen and examined. Objective - Vital Signs Vital signs: Vital Signs Temp 97.9 F 03/16/23 07:56 Pulse 69 03/16/23 10:19 Resp 18 03/16/23 10:19 BP 120/64 03/16/23 07:56 Pulse Ox 97 03/16/23 07:56 FiO2 Intake & Output 03/15/23 03/16/23 03/16/23 18:59 06:59 18:59 Intake Total 298 120 Output Total 800 100 Balance -502 -100 120 Intake: Oral 298 120 Output: Urine 800 100 Other: Voiding Method Toilet Toilet Toilet Urinal Urinal Urinal # Voids 1 - Labs CBC & Chem 7: 03/15/23 06:48 03/16/23 11:11
[2023-03-16] MEDS: MONTELUKAST 10 MG TAB PO SCH (22:02)
[2023-03-16] MEDS: ATORVASTATIN 80 MG TAB PO SCH (22:02)
[2023-03-17] MEDS: MEXILETINE 200 MG CAP PO SCH ×3 (00:21→16:58)
[2023-03-17] MEDS: LEVALBUTEROL 1.25 MG INHALATION SCH ×4 (02:01→20:51)
[2023-03-17 08:37] LABS: African American GFR (CKD) 88 (>60 ml/min/1.73 sqM); Anion Gap 9 mmol/L; Blood Urea Nitrogen 14 mg/dL (9-20); Calcium 8.3 mg/dL (8.4-10.2); Carbon Dioxide 23 mmol/L (22-30); Chloride 105 mmol/L (98-107); Glucose 130 mg/dL (74-99); Non-African American GFR(CKD) 76 (>60 ml/min/1.73 sqM); Potassium 4.2 mmol/L (3.5-5.1); Sodium 137 mmol/L (137-145)
[2023-03-17] MEDS: SPIRONOLACTONE 25 MG TAB PO SCH (09:13)
[2023-03-17] MEDS: predniSONE 5 MG TAB PO SCH (09:14)
[2023-03-17] MEDS: FAMOTIDINE 20 MG TAB PO SCH ×2 (09:14→20:01)
[2023-03-17] MEDS: ASPIRIN 81 MG PO SCH (09:14)
[2023-03-17] MEDS: AMIODARONE 200 MG TAB PO SCH (09:14)
[2023-03-17] MEDS: EZETIMIBE 10 MG TAB PO SCH (09:14)
[2023-03-17] MEDS: TICAGRELOR 90 MG TAB PO SCH ×2 (09:14→20:01)
--- NOTE | 2023-03-17 10:50 | P.PN ---
Subjective Progress Note Date: 03/17/23 Principal diagnosis: Syncope. Near syncope this is a 72-year-old white male, familiar to my service, known to have history of COPD, patient is normally maintained on multiple bronchodilators and he is also on prednisone at 5 mg a day for his underlying COPD. Patient is also known to have history of ventricular tachycardia, had been following up with cardiology. Patient has a defibrillator in place.patient was last admitted 2 weeks ago to the hospital, and he was having intermittent AICD shocks. He was seen by cardiology on consultation, and he underwent cardiac catheterization, patient also underwent evaluation of his defibrillator. His cardiac catheterization showed subtotally occluded calcified LAD, and it was stented in the proximal and midportion by Dr. Tyler.patient also had new dual-chamber ICD implantation, appropriate pacing parameters anti-tachycardic therapies were addressed by Dr. Peraza on the case.this time the patient came in with basically intermittent episodes of dizziness especially when he stands up, he feels generally weak and almost about to fall. He had no shortness of breath, no cough, no wheezing, no chest pain. I was basically asked to see him for his underlying COPD which seems to be relatively stable and asymptomatic. As a matter of fact the patient has no active pulmonary symptoms whatsoever at this point.CBC is relatively normal hemoglobin is however 11.7. Basic metabolic profile is normal renal profile is normal.chest x-ray showed no evidence of acute pulmonary disease Today on 03/16/23, patient seems to be doing much better today, no active pulmonary symptoms, no evidence of active COPD, his neurological symptoms have significantly improved, seen by cardiology, advised to continue his home medications, continued amiodarone at 400 mg daily continue Toprol at 50 mg daily no other recommendations made. CT brain is basically nondiagnostic. He did have some prominent changes noted in the left frontal lobe felt to be most likely secondary to remote injury. Progress note dated 03/17/2023. The patient is seen today in room 355. Patient's currently on room air. The patient is not receiving any IV fluids. The patient continues to improve. Today's labs include a sodium 137, potassium 4.2, chlorides 105, CO2 23, with a normal anion gap, BUN, and creatinine. Urine is negative. Cortisol level was 10. Brain CAT scan showed no acute intracranial process. Objective - Vital Signs Vital signs: Vital Signs Temp 97.9 F 03/17/23 04:00 Pulse 62 03/17/23 08:28 Resp 16 03/17/23 08:28 BP 143/76 03/17/23 08:00 Pulse Ox 95 03/17/23 08:15 FiO2 Intake & Output 03/16/23 03/17/23 03/17/23 18:59 06:59 18:59 Intake Total 360 118 Output Total 350 250 Balance 10 -250 118 Intake: Oral 360 118 Output: Urine 350 250 Other: Voiding Method Toilet Toilet Urinal Urinal # Voids 1 - Exam No acute distress, oriented 3. Currently on room air. No respiratory distress. HEENT examination is grossly unremarkable. Mucous membranes are moist. No oral lesions. Neck supple. Full range of motion. No adenopathy thyromegaly or neck vein distention. Cardiovascular examination reveals regular rhythm rate. S1-S2 normal. No S3 or S4. No discernible murmur noted. Heart rate 62 bpm. Lungs reveal clear breath sounds. Breath sounds are equal bilaterally. No adventitious lung sounds including wheezes rhonchi or crackles. Room air saturation is 98%. Abdomen soft bowel sounds are heard. No masses or tenderness. Extremities are intact. No cyanosis clubbing or edema. Skin is without rash or lesion. Neurologic examination is brief but nonfocal. - Labs CBC & Chem 7: 03/15/23 06:48 03/17/23 07:57 Labs: Abnormal Lab Results - Last 24 Hours (Table) 03/16/23 03/17/23 Range/Units 11:11 07:57 Sodium 136 L (137-145) mmol/L Glucose 130 H (74-99) mg/dL Calcium 8.1 L 8.3 L (8.4-10.2) mg/dL Assessment and Plan Assessment: Syncope/near syncope, thought to be cardiac in origin. History of ventricular tachycardia, patient has new AICD, placed 2 weeks ago. Nonischemic cardiomyopathy. History of asthmatic bronchitis, stage III COPD by Gold criteria. Hyperlipidemia. Benign essential hypertension. 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 Plan: Plan dated 03/17/2023. Patient appears be doing relatively well. The patient's on room air. The patient's not receiving any IV fluids. Labs, x-rays, and medications are reviewed. We will continue to follow make recommendations along the way. Discharge planning underway. Prognosis is certainly guarded. Time with Patient: Less than 30
[2023-03-17] MEDS: METOPROLOL SUCCINATE (ER) 50 MG TAB.ER.24H PO SCH (12:38)
--- NOTE | 2023-03-17 19:25 | P.PN ---
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 he could hold the chair and walk short distance. pt denies chest pain , has little dyspnea, no coughing, no specific GI, urinary , or neurlogical symptoms denes smoking, alchol, illicit drug abuse he eats well he a little bradycardic arond 50 heart rate creatinine slightly up at 1.39 rest of cbc, bmp and liver enz are unremarkable ua is negative chest xray is negative for acute process ekg; atrial paced 03/13/2023 Patient with no significant symptoms. Still complains from dizziness and balance problem Vitas looks stable, discussed with staff to check orthostatic vital 03/15/2023 Patient presents with dizziness and still complaining of from the same with b olus problem when he walks however he denies any specific weakness or tingling in his legs or arms while he is lying in bed. Also he denies headache. No blurred vision or double vision. No slurred speech. Also is hemodynamically stable. No fever. I discussed with the staff to check orthostatic vitals. Cardiology input is appreciated patient was started on amiodarone. His continued on aspirin and brillinta Creatinine improved. Number IV fluid We will check CT of the brain 03/16/23 Patient dizziness is improving but not completely resolved. CT of the brain was NEGATIVE. Orthostatic was checked is negative. But since his is significantly improving we will wait for another 24 hours Cardiology team recommended to continue with Lopressor 50 mg and amiodarone 40 mg which her home medication. Also patient is on aspirin and brilinta Pulmonary team input is also appreciated. 03/17/2023 pt is clinicaly is improving slowly and gradually orthstatic vitals are positive mildly but pt was mostly asymptomatic, we recommend compression stocking cardiology team signed off the case possible discharge tomorrow Objective - Vital Signs Vital signs: Vital Signs Temp 97.9 F 03/17/23 04:00 Pulse 66 03/17/23 16:58 Resp 16 03/17/23 16:58 BP 105/66 03/17/23 16:58 Pulse Ox 97 03/17/23 16:58 FiO2 Intake & Output 03/16/23 03/17/23 03/17/23 18:59 06:59 18:59 Intake Total 360 476 Output Total 350 250 Balance 10 -250 476 Intake: Oral 360 476 Output: Urine 350 250 Other: Voiding Method Toilet Toilet Urinal Urinal # Voids 1 2 - Exam GENERAL: The patient is alert and oriented x3, not in any acute distress. Well developed, well nourished. HEENT: Pupils are round and equally reacting to light. EOMI. No scleral icterus. No conjunctival pallor. Normocephalic, atraumatic. No pharyngeal erythema. No thyromegaly. CARDIOVASCULAR: S1 and S2 present. No murmurs, rubs, or gallops. PULMONARY: Chest is clear to auscultation, no wheezing , no crackles. ABDOMEN: Soft, nontender, nondistended, normoactive bowel sounds. No palpable organomegaly. MUSCULOSKELETAL: No joint swelling or deformity. EXTREMITIES: No cyanosis, clubbing, or pedal edema. NEUROLOGICAL: Gross neurological examination did not reveal any focal deficits. SKIN: No rashes. no petechiae. - Labs CBC & Chem 7: 03/15/23 06:48 03/17/23 07:57 Labs: Abnormal Lab Results - Last 24 Hours (Table) 03/17/23 Range/Units 07:57 Glucose 130 H (74-99) mg/dL Calcium 8.3 L (8.4-10.2) mg/dL Assessment and Plan Assessment: episode of generalized weakness with dizziness suscipous for presyncopy acute kid injury , mild history of VTach, s/p AICD, EPS, Pacemaker nonischemic cardiomyopathy h/o Asthma, COPD, Hyperlipidemia h/o organized left ventricular apical clot, h/o asthma requiring intubation twice, h/o BRAIN BLEED WHILE ON BLOOD THINNER RX 2009 Plan: pt with posivtive orthstasis, mostly contributing to his dizziness, which is r esolved now, recommend using compression stocking cardiology consult signed off the case pulmonary team are following the pt as well Labs and medication reviewed.. Continue same treatment. Continue with symptomatic treatment. Resume home medication. Monitor lytes and vitals. DVT and GI prophylaxis. Further recommendations depends on the clinical course of the patient DVT prophylaxis: aspirine and brillinta GI Prophylaxis: Pepcid keep monitor for another 24 hrs, possible dc tomorrow if keep improving
[2023-03-17] MEDS: MONTELUKAST 10 MG TAB PO SCH (20:01)
[2023-03-17] MEDS: ATORVASTATIN 80 MG TAB PO SCH (20:01)
[2023-03-18] MEDS: MEXILETINE 200 MG CAP PO SCH ×2 (00:05→09:45)
[2023-03-18] MEDS: LEVALBUTEROL 1.25 MG INHALATION SCH ×3 (04:21→11:30)
--- NOTE | 2023-03-18 06:17 | P.PN ---
Subjective Progress Note Date: 03/18/23 Principal diagnosis: Syncope. Near syncope this is a 72-year-old white male, familiar to my service, known to have history of COPD, patient is normally maintained on multiple bronchodilators and he is also on prednisone at 5 mg a day for his underlying COPD. Patient is also known to have history of ventricular tachycardia, had been following up with cardiology. Patient has a defibrillator in place.patient was last admitted 2 weeks ago to the hospital, and he was having intermittent AICD shocks. He was seen by cardiology on consultation, and he underwent cardiac catheterization, patient also underwent evaluation of his defibrillator. His cardiac catheterization showed subtotally occluded calcified LAD, and it was stented in the proximal and midportion by Dr. Tyler.patient also had new dual-chamber ICD implantation, appropriate pacing parameters anti-tachycardic therapies were addressed by Dr. Peraza on the case.this time the patient came in with basically intermittent episodes of dizziness especially when he stands up, he feels generally weak and almost about to fall. He had no shortness of breath, no cough, no wheezing, no chest pain. I was basically asked to see him for his underlying COPD which seems to be relatively stable and asymptomatic. As a matter of fact the patient has no active pulmonary symptoms whatsoever at this point.CBC is relatively normal hemoglobin is however 11.7. Basic metabolic profile is normal renal profile is normal.chest x-ray showed no evidence of acute pulmonary disease Today on 03/16/23, patient seems to be doing much better today, no active pulmonary symptoms, no evidence of active COPD, his neurological symptoms have significantly improved, seen by cardiology, advised to continue his home medications, continued amiodarone at 400 mg daily continue Toprol at 50 mg daily no other recommendations made. CT brain is basically nondiagnostic. He did have some prominent changes noted in the left frontal lobe felt to be most likely secondary to remote injury. Progress note dated 03/17/2023. The patient is seen today in room 355. Patient's currently on room air. The patient is not receiving any IV fluids. The patient continues to improve. Today's labs include a sodium 137, potassium 4.2, chlorides 105, CO2 23, with a normal anion gap, BUN, and creatinine. Urine is negative. Cortisol level was 10. Brain CAT scan showed no acute intracranial process. Progress note dated 03/18/2023. 72-year-old male who was seen in room 355 yesterday, but today, seen in room 534. He is on room air. He's not receiving any IV fluids. The patient really has no major complaints. He's feeling generally well. No new labs today she had. From yesterday, sodium 137, potassium 4.2, chlorides 105, CO2 23, BUN 14, and creatinine 0.99. Objective - Vital Signs Vital signs: Vital Signs Temp 97.8 F 03/18/23 00:20 Pulse 63 03/18/23 00:20 Resp 18 03/18/23 00:20 BP 115/63 03/18/23 00:20 Pulse Ox 96 03/18/23 00:20 FiO2 Intake & Output 03/17/23 03/17/23 03/18/23 06:59 18:59 06:59 Intake Total 594 Output Total 250 Balance -250 594 Intake: Oral 594 Output: Urine 250 Other: Voiding Method Toilet Toilet Urinal Urinal # Voids 2 1 - Exam No acute distress, oriented 3. Currently on room air. No respiratory distress. HEENT examination is grossly unremarkable. Mucous membranes are moist. No oral lesions. Neck supple. Full range of motion. No adenopathy thyromegaly or neck vein distention. Cardiovascular examination reveals regular rhythm rate. S1-S2 normal. No S3 or S4. No discernible murmur noted. Heart rate 63 bpm. Lungs reveal clear breath sounds. Breath sounds are equal bilaterally. No adventitious lung sounds including wheezes rhonchi or crackles. Room air saturation is 96 %. Abdomen soft bowel sounds are heard. No masses or tenderness. Extremities are intact. No cyanosis clubbing or edema. Skin is without rash or lesion. There is bruising to the anterior chest area. Neurologic examination is brief but nonfocal. - Labs CBC & Chem 7: 03/15/23 06:48 03/17/23 07:57 Labs: Abnormal Lab Results - Last 24 Hours (Table) 03/17/23 Range/Units 07:57 Glucose 130 H (74-99) mg/dL Calcium 8.3 L (8.4-10.2) mg/dL Assessment and Plan Assessment: Syncope/near syncope, thought to be cardiac in origin. History of ventricular tachycardia, patient has new AICD, placed 2 weeks ago. Nonischemic cardiomyopathy. History of asthmatic bronchitis, stage III COPD by Gold criteria. Hyperlipidemia. Benign essential hypertension. Prior history of IT LEAD bleed, requiring craniotomy. Plan: Plan dated 03/17/2023. Patient appears be doing relatively well. The patient's on room air. The patient's not receiving any IV fluids. Labs, x-rays, and medications are reviewed. We will continue to follow make recommendations along the way. Discharge planning underway. Prognosis is certainly guarded. Plan dated 03/18/2023. The patient appears be doing relatively well. The patient not requiring any oxygen or IV fluids. Labs, x-rays, medications are reviewed. The patient may be discharged home later today. No additional recommendations are made. Prognosis is guarded. Time with Patient: Less than 30
[2023-03-18 08:23] VITALS: BP 117/76; PULSE 60; RESP 19; TEMP 98.1
[2023-03-18] MEDS: AMIODARONE 200 MG TAB PO SCH (09:44)
[2023-03-18] MEDS: EZETIMIBE 10 MG TAB PO SCH (09:45)
[2023-03-18] MEDS: SPIRONOLACTONE 25 MG TAB PO SCH (09:45)
[2023-03-18] MEDS: FAMOTIDINE 20 MG TAB PO SCH (09:45)
[2023-03-18] MEDS: TICAGRELOR 90 MG TAB PO SCH (09:45)
[2023-03-18] MEDS: ASPIRIN 81 MG PO SCH (09:45)
[2023-03-18] MEDS: predniSONE 5 MG TAB PO SCH (09:45)
[2023-03-18] MEDS: METOPROLOL SUCCINATE (ER) 50 MG TAB.ER.24H PO SCH (11:39)
--- NOTE | 2023-03-19 02:20 | P.DS ---
Providers Date of admission: 03/14/23 12:33 Attending physician: Gretchen Vines Consults: 03/14/23 12:32 Consult Physician Urgent Consulting Provider: [facility] Consult Reason/Comments: Near syncope Do you want consulting provider notified?: Yes Primary care physician: Alex Dominguez Hospital Course: Diagnoses episode of generalized weakness with dizziness suscipous for presyncopy. Secondary to orthostatic hypotension, secondary to medication effect. 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 With these changes patient symptoms significantly improved and is back to normal self, mentation normal, asymptomatic. Gait is normal. But he denies any other new symptoms. Patient was evaluated by cardiology and pulmonary team who cleared him for discharge. Patient denies any symptoms upon discharge and he agrees to go home today. Problems and management plan were discussed with the patient and he verbalized understanding and acceptance Patient was found stable and can be discharged home in guarded prognosis however he needs follow-up as an outpatient. Patient was instructed to follow up with PCP Dr. Dominguez within one week and patient agrees Patient was instructed to follow up with his steam table worker Dr. Peraza in one week also he has appointment with his pan puller Dr. Brandt by the end of the month that he intends to keep Physical exam Gen: patient is a AAOx3, no distress CVS: S1-S2, RRR, no murmur Lungs: B/L CTA, no wheezing Abdomen: soft, no distention, no tenderness, positive bowel sounds Extremity: no leg edema or induration Time spent more than 35 minutes Plan - Discharge Summary New Discharge Prescriptions: New Metoprolol Succinate (ER) [Toprol XL] 50 mg PO DAILY@1200 #30 tab Amiodarone [Cordarone] 400 mg PO DAILY #60 tab Continue Montelukast [Singulair] 10 mg PO HS Spironolactone [Aldactone] 25 mg PO DAILY Levalbuterol Hfa Inhaler [Xopenex Hfa Inhaler] 1 puff INHALATION RT-Q6H PRN PRN Reason: Shortness Of Breath Levalbuterol Nebulized [Xopenex Nebulized] 1.25 mg INHALATION RT-TID predniSONE 5 mg PO DAILY Aspirin EC [Ecotrin Low Dose] 81 mg PO DAILY #90 tab Atorvastatin [Lipitor] 80 mg PO HS Mexiletine HCl 200 mg PO Q8H Diphenox-Atrop 2.5-0.025 mg [Lomotil] 1 tab PO DAILY PRN PRN Reason: Diarrhea Ezetimibe [Zetia] 10 mg PO DAILY #90 tab Ticagrelor [Brilinta] 90 mg PO BID tab Discontinued Sacubitril/Valsartan [Entresto 24 mg-26 mg Tablet] 1 tab PO BID Furosemide [Lasix] 40 mg PO DAILY #30 tab Metoprolol Succinate (ER) [Toprol XL] 75 mg PO DAILY@1200 30 Days #90 tab Amiodarone [Cordarone] See Taper PO DIRECTED Discharge Medication List Montelukast [Singulair] 10 mg PO HS 09/12/15 [History] Spironolactone [Aldactone] 25 mg PO DAILY 09/12/15 [History] Levalbuterol Hfa Inhaler [Xopenex Hfa Inhaler] 1 puff INHALATION RT-Q6H PRN 07/17/17 [History] Levalbuterol Nebulized [Xopenex Nebulized] 1.25 mg INHALATION RT-TID 07/17/17 [History] predniSONE 5 mg PO DAILY 02/12/19 [History] Mexiletine HCl 200 mg PO Q8H 01/30/23 [History] Diphenox-Atrop 2.5-0.025 mg [Lomotil] 1 tab PO DAILY PRN 02/24/23 [History] Aspirin EC [Ecotrin Low Dose] 81 mg PO DAILY #90 tab 02/27/23 [Rx] Ezetimibe [Zetia] 10 mg PO DAILY #90 tab 02/27/23 [Rx] Ticagrelor [Brilinta] 90 mg PO BID tab 02/28/23 [Rx] Atorvastatin [Lipitor] 80 mg PO HS 03/14/23 [History] Amiodarone [Cordarone] 400 mg PO DAILY #60 tab 03/18/23 [Rx] Metoprolol Succinate (ER) [Toprol XL] 50 mg PO DAILY@1200 #30 tab 03/18/23 [Rx] Follow up Appointment(s)/Referral(s): Irving Olson MD [STAFF PHYSICIAN] - 03/24/23 2:30 pm Timmy Li MD [STAFF PHYSICIAN] - 03/19/23 8:30 am Alex Dominguez MD [Primary Care Provider] - 03/20/23 2:15 pm Patient Instructions/Handouts: Metoprolol (By mouth), Amiodarone (By mouth), Syncope (DC) Activity/Diet/Wound Care/Special Instructions: Heart healthy diet activity is restricted till you see your doctor Discharge Disposition: HOME SELF-CARE
== END 2023-03-18 12:44 | disposition home or self-care (01) ==
LOC: EC 07:45 → 3SCARD 12:33 → INTOOBSV 12:33 → 3SCARD 14:41 → 5NMEDONC 03-18 00:17 → UNDODISIN 03-18 12:44
PROVIDERS: ADMIT Hospitalist; ATTEND Hospitalist
DX: R55 Syncope and collapse (principal); I42.8 Other cardiomyopathies; N17.9 Acute kidney failure, unspecified; I47.20 Ventricular tachycardia, unspecified; L76.32 Postprocedural hematoma of skin and subcutaneous tissue following other procedure; R53.1 Weakness; R42 Dizziness and giddiness; J44.9 Chronic obstructive pulmonary disease, unspecified; E78.5 Hyperlipidemia, unspecified; I11.0 Hypertensive heart disease with heart failure; I50.9 Heart failure, unspecified; I25.10 Atherosclerotic heart disease of native coronary artery without angina pectoris; Y83.8 Other surgical procedures as the cause of abnormal reaction of the patient, or of later complication, without mention of misadventure at the time of the procedure; Y82.8 Other medical devices associated with adverse incidents; Z86.718 Personal history of other venous thrombosis and embolism; Z95.810 Presence of automatic (implantable) cardiac defibrillator; Z95.5 Presence of coronary angioplasty implant and graft; Z79.51 Long term (current) use of inhaled steroids; Z79.52 Long term (current) use of systemic steroids; Z79.82 Long term (current) use of aspirin; Z79.899 Other long term (current) drug therapy; Z79.02 Long term (current) use of antithrombotics/antiplatelets; Z88.5 Allergy status to narcotic agent; Z88.6 Allergy status to analgesic agent
CPT/HCPCS: 96361 ×3; 96360; 99285; 36415; 94640 ×7; 94760; 93005; 97162; 97165; 80053; 80048 ×3; 82533; 83605; 83735 ×3; 84484; 85025 ×2; 85610; 85730; 81003; 71046; 70450; G0378 ×5; J7512 ×4

== ENCOUNTER 2023-07-11 21:42 | Observation (INO) | payer MEDICARE ==
[2023-07-11 23:53] LABS: Basophils % (A) 0 %; Eosinophils # (A) 0.1 k/uL (0-0.7); Eosinophils % (A) 1 %; HCT 39.4 % (39.0-53.0); Lymphocytes # (A) 1.5 k/uL (1.0-4.8); Lymphocytes % (A) 28 %; MCH 31.1 pg (25.0-35.0); MCHC 33.1 g/dL (31.0-37.0); Monocytes # (A) 0.4 k/uL (0-1.0); Monocytes % (A) 8 %; Neutrophils # (A) 3.1 k/uL (1.3-7.7); Neutrophils % (A) 59 %; Platelet Count 143 k/uL (150-450); RBC 4.19 m/uL (4.30-5.90); RDW 14.4 % (11.5-15.5); WBC 5.2 k/uL (3.8-10.6)
[2023-07-12 00:08] LABS: ALT 28 U/L (4-49); AST 27 U/L (17-59); African American GFR (CKD) 87 (>60 ml/min/1.73 sqM); Albumin 3.5 g/dL (3.5-5.0); Alkaline Phosphatase 47 U/L (38-126); Anion Gap 5 mmol/L; Blood Urea Nitrogen 19 mg/dL (9-20); Calcium 8.7 mg/dL (8.4-10.2); Carbon Dioxide 26 mmol/L (22-30); Chloride 108 mmol/L (98-107); Glucose 88 mg/dL (74-99); Magnesium 2.2 mg/dL (1.6-2.3); Non-African American GFR(CKD) 75 (>60 ml/min/1.73 sqM); Potassium 4.5 mmol/L (3.5-5.1); Sodium 139 mmol/L (137-145); Total Bilirubin 0.6 mg/dL (0.2-1.3); Total Protein 5.7 g/dL (6.3-8.2)
--- NOTE | 2023-07-12 03:17 | ED ---
Dizziness HPI - General Chief Complaint: Syncope Stated Complaint: Light headed and dizzy, weakness in legs Time Seen by Provider: 07/11/23 22:19 Source: patient Mode of arrival: ambulatory Limitations: no limitations - History of Present Illness Initial Comments: 73-year-old male presents to the emergency department reporting lightheadedness, headache and vertigo. States that he previously had these symptoms a couple of months ago. He was admitted to our hospital and had his medication adjusted. Since then the patient has been feeling pretty well up until today when he felt extremely dizzy and weak. States he is having difficulty ambulating. He has a mild frontal headache. He denies any visual changes. No speech deficit. No unilateral numbness or weakness. Does have previous history of intracranial bleed after a fall which required bur holes. Patient currently on brillinta. He does admit that a chiropractor has been manipulating his neck. No visual changes. No other alleviating, precipitating or modifying factors - Related Data Home Medications Medication Instructions Recorded Confirmed Montelukast [Singulair] 10 mg PO HS 09/12/15 03/14/23 Spironolactone [Aldactone] 25 mg PO DAILY 09/12/15 03/14/23 Levalbuterol Hfa Inhaler [Xopenex 1 puff INHALATION RT-Q6H PRN 07/17/17 03/14/23 Hfa Inhaler] Levalbuterol Nebulized [Xopenex 1.25 mg INHALATION RT-TID 07/17/17 03/14/23 Nebulized] predniSONE 5 mg PO DAILY 02/12/19 03/14/23 Mexiletine HCl 200 mg PO Q8H 01/30/23 03/14/23 Diphenox-Atrop 2.5-0.025 mg 1 tab PO DAILY PRN 02/24/23 03/14/23 [Lomotil] Atorvastatin [Lipitor] 80 mg PO HS 03/14/23 03/14/23 Previous Rx's Medication Instructions Recorded Aspirin EC [Ecotrin Low Dose] 81 mg PO DAILY #90 tab 02/27/23 Ezetimibe [Zetia] 10 mg PO DAILY #90 tab 02/27/23 Ticagrelor [Brilinta] 90 mg PO BID tab 02/28/23 Amiodarone [Cordarone] 400 mg PO DAILY #60 tab 03/18/23 Metoprolol Succinate (ER) [Toprol 50 mg PO DAILY@1200 #30 tab 03/18/23 XL] Allergies Allergy/AdvReac Type Severity Reaction Status Date / Time hydrocodone [From [place]] Allergy Anaphylaxis Verified 07/11/23 22:07 ibuprofen Allergy Anaphylaxis Verified 07/11/23 22:07 Review of Systems ROS Statement: Those systems with pertinent positive or pertinent negative responses have been documented in the HPI. ROS Other: All systems not noted in ROS Statement are negative. Past Medical History Past Medical History: Asthma, COPD, Hyperlipidemia Additional Past Medical History / Comment(s): VTach, nonischemic cardiomyopathy, CHF, organized left ventricular apical clot, previous DVT ablation, asthma requiring intubation twice, BRAIN BLEED WHILE ON BLOOD THINNER RX 2009, cataracts bilaterally History of Any Multi-Drug Resistant Organisms: None Reported Past Surgical History: AICD, EPS, Pacemaker Additional Past Surgical History / Comment(s): 12/07/15 EPS wtih VT ablation. Other surgical hx: BRAIN SURGERY FOLLOWING BLEED. AICD/PACEMAKER, [facility]. generator change, Defibrilator testing Past Anesthesia/Blood Transfusion Reactions: No Reported Reaction Type of Cardiac Device: Permanent Pacemaker, AICD Device Placement Date:: 2005 implanted with gen change 2012 Past Psychological History: No Psychological Hx Reported Smoking Status: Never smoker Past Alcohol Use History: None Reported Past Drug Use History: None Reported - Past Family History Mother Family Medical History: No Reported History Additional Family Medical History / Comment(s): Mother at age 92 yrs. Father Family Medical History: No Reported History Additional Family Medical History / Comment(s): Father is healthy and 95 yrs old. General Exam Limitations: no limitations General appearance: alert, in no apparent distress Head exam: Present: atraumatic, normocephalic, normal inspection Eye exam: Present: normal appearance, PERRL, EOMI, nystagmus. Absent: scleral icterus, conjunctival injection, periorbital swelling ENT exam: Present: normal exam, mucous membranes moist Neck exam: Present: normal inspection. Absent: tenderness, meningismus, lymphadenopathy Respiratory exam: Present: normal lung sounds bilaterally. Absent: respiratory distress, wheezes, rales, rhonchi, stridor Cardiovascular Exam: Present: regular rate, normal rhythm, normal heart sounds. Absent: systolic murmur, diastolic murmur, rubs, gallop, clicks GI/Abdominal exam: Present: soft, normal bowel sounds. Absent: distended, tenderness, guarding, rebound, rigid Extremities exam: Present: normal inspection, full ROM, normal capillary refill. Absent: tenderness, pedal edema, joint swelling, calf tenderness Back exam: Present: normal inspection Neurological exam: Present: alert, oriented X3, CN II-XII intact Psychiatric exam: Present: normal affect, normal mood Skin exam: Present: warm, dry, intact, normal color. Absent: rash Course Vital Signs 07/11/23 07/11/23 07/12/23 22:04 23:57 00:53 Temperature 98 F Pulse Rate 50 L 50 L 50 L Respiratory 18 18 18 Rate Blood Pressure 115/62 153/88 158/90 O2 Sat by Pulse 98 97 95 Oximetry 07/12/23 07/12/23 07/12/23 02:00 04:00 05:46 Temperature Pulse Rate 56 L 54 L 52 L Respiratory 18 18 18 Rate Blood Pressure 147/87 133/99 120/53 O2 Sat by Pulse 95 95 95 Oximetry Medical Decision Making - Medical Decision Making Was pt. sent in by a medical professional or institution (, PA, [employer], urgent care, hospital, or group home...) When possible be specific @ -No Did you speak to anyone other than the patient for history (EMS, parent, family, police, friend...)? What history was obtained from this source @ -daughter Did you review nursing and triage notes (agree or disagree)? Why? @ -I reviewed and agree with nursing and triage notes Were old charts reviewed (outside hosp., previous admission, EMS record, old EKG, old radiological studies, urgent care reports/EKG's, group home records)? Report findings @ -I reviewed charts from previous hospitalization in April Differential Diagnosis (chest pain, altered mental status, abdominal pain women, abdominal pain men, vaginal bleeding, weakness, fever, dyspnea, syncope, headache, dizziness, GI bleed, back pain, seizure, CVA, palpatations, mental health, musculoskeletal)? @ -Differential Dizziness: Benign paroxysmal positional Vertigo, Menieres disease, otitis media, acoustic neuroma, vertebrobasilar insufficiency, cerebellar stroke, encephalitis, hypovolemic, arrhythmia, coronary artery syndrome, anemia, this is not meant to be an all-inclusive list EKG interpreted by me (3pts min.). @ -Yes and demonstrates electronic atrial pacemaker with a rate of 49. ND interval 225. QRS 154. QTC of 460. No acute ST segment elevations or depressions. Pacemaker captures appropriately X-rays interpreted by me (1pt min.). @ -Not done CT interpreted by me (1pt min.). @ -Yes and demonstrates vertebral artery occlusion due to calcification U/S interpreted by me (1pt. min.). @ -None done What testing was considered but not performed or refused? (CT, X-rays, U/S, labs)? Why? @ -None What meds were considered but not given or refused? Why? @ -None Did you discuss the management of the patient with other professionals (professionals i.e. , PA, [employer], lab, RT, psych nurse, social work professor, web site project manager, teacher, banking services officer, rn field case manager)? Give summary @ -Spoke with Dr. Doshi who will admit patient Was smoking cessation discussed for >3mins.? @ -No Was critical care preformed (if so, how long)? @ -No Were there social determinants of health that impacted care today? How? (Homelessness, low income, unemployed, alcoholism, drug addiction, transportation, low edu. Level, literacy, decrease access to med. care, longterm, rehab)? @ -No Was there de-escalation of care discussed even if they declined (Discuss DNR or withdrawal of care, Hospice)? DNR status @ -No What co-morbidities impacted this encounter? (DM, HTN, Smoking, COPD, CAD, Cancer, CVA, ARF, Chemo, Hep., AIDS, mental health diagnosis, sleep apnea, morbid obesity)? @ -Hyperlipidemia Was patient admitted / discharged? Hospital course, mention meds given and route, prescriptions, significant lab abnormalities, going to OR and other pertinent info. @ -Upon arrival patient was placed into room 2. A thorough history and physical exam was performed. He is placed on continuous pulse ox and cardiac monitoring. Laboratory studies were conducted. Patient does go for CT of his brain and CT angiography. CT angiography demonstrates vertebral artery occlusion. Results are discussed with the patient. I did offer admission for neurology consultation. Patient was agreeable to this. I spoke with Dr. Doshi who will admit patient Undiagnosed new problem with uncertain prognosis? @ -yes Drug Therapy requiring intensive monitoring for toxicity (Heparin, Nitro, Insulin, Cardizem)? @ -No Were any procedures done? @ -No Diagnosis/symptom? @ -Acute vertigo, vertebral artery occlusion Acute, or Chronic, or Acute on Chronic? @ -Acute Uncomplicated (without systemic symptoms) or Complicated (systemic symptoms)? @ -Complicated Side effects of treatment? @ -No Exacerbation, Progression, or Severe Exacerbation? @ -No Poses a threat to life or bodily function? How? (Chest pain, USA, SD, pneumonia, PE, COPD, DKA, ARF, appy, cholecystitis, CVA, Diverticulitis, Homicidal, Suicidal, threat to staff... and all critical care pts) @ -No - Lab Data Result diagrams: 07/11/23 23:34 07/11/23 23:34 Lab Results 07/11/23 07/11/23 07/11/23 Range/Units 23:34 23:34 23:34 WBC 5.2 (3.8-10.6) k/uL RBC 4.19 L (4.30-5.90) m/uL Hgb 13.0 (13.0-17.5) gm/dL Hct 39.4 (39.0-53.0) % MCV 94.0 (80.0-100.0) fL MCH 31.1 (25.0-35.0) pg MCHC 33.1 (31.0-37.0) g/dL RDW 14.4 (11.5-15.5) % Plt Count 143 L (150-450) k/uL MPV 8.0 Neutrophils % 59 % Lymphocytes % 28 % Monocytes % 8 % Eosinophils % 1 % Basophils % 0 % Neutrophils # 3.1 (1.3-7.7) k/uL Lymphocytes # 1.5 (1.0-4.8) k/uL Monocytes # 0.4 (0-1.0) k/uL Eosinophils # 0.1 (0-0.7) k/uL Basophils # 0.0 (0-0.2) k/uL Sodium 139 (137-145) mmol/L Potassium 4.5 (3.5-5.1) mmol/L Chloride 108 H (98-107) mmol/L Carbon Dioxide 26 (22-30) mmol/L Anion Gap 5 mmol/L BUN 19 (9-20) mg/dL Creatinine 0.99 (0.66-1.25) mg/dL Est GFR (CKD-EPI)AfAm 87 (>60 ml/min/1.73 sqM) Est GFR (CKD-EPI)NonAf 75 (>60 ml/min/1.73 sqM) Glucose 88 (74-99) mg/dL Calcium 8.7 (8.4-10.2) mg/dL Magnesium 2.2 (1.6-2.3) mg/dL Total Bilirubin 0.6 (0.2-1.3) mg/dL AST 27 (17-59) U/L ALT 28 (4-49) U/L Alkaline Phosphatase 47 (38-126) U/L Troponin I 0.013 (0.000-0.034) ng/mL Total Protein 5.7 L (6.3-8.2) g/dL Albumin 3.5 (3.5-5.0) g/dL Disposition Clinical Impression: Dizziness, Vertigo, VBI (vertebrobasilar insufficiency) Disposition: ADMITTED IP TO THIS [facility] Condition: Stable Is patient prescribed a controlled substance at d/c from ED?: No Time of Disposition: 04:51 Decision to Admit Reason: Admit from EC Decision Date: 07/12/23 Decision Time: 04:51
--- NOTE | 2023-07-12 03:28 | CT ---
EXAM: CT Head Without Intravenous Contrast CLINICAL HISTORY: ITS.REASON CT Reason: headache, vertigo, hx brain bleed TECHNIQUE: Axial computed tomography images of the head/brain without intravenous contrast. CTDI is 48.8 mGy and DLP is 1230 mGy-cm. This CT exam was performed using one or more of the following dose reduction techniques: automated exposure control, adjustment of the mA and/or kV according to patient size, and/or use of iterative reconstruction technique. COMPARISON: 05/24/2023 FINDINGS: Brain: No hemorrhage or mass effect. Chronic changes. Encephalomalacia left perirolandic region. Ventricles: No hydrocephalus. Bones/joints: Postop changes. Soft tissues: Unremarkable. Sinuses: No air fluid level. Mastoid air cells: Clear. IMPRESSION: No acute hemorrhage, hydrocephalus, or mass effect.
--- NOTE | 2023-07-12 04:00 | CT ---
EXAM: CT Angiography Head With Intravenous Contrast CLINICAL HISTORY: ITS.REASON CT Reason: headache, vertigo, hx brain bleed TECHNIQUE: Axial computed tomographic angiography images of the head with intravenous contrast. CTDI is 22.75 mGy and DLP is 298.5 mGy-cm. This CT exam was performed using one or more of the following dose reduction techniques: automated exposure control, adjustment of the mA and/or kV according to patient size, and/or use of iterative reconstruction technique. MIP reconstructed images were created and reviewed. COMPARISON: No relevant prior studies available. FINDINGS: Right internal carotid artery: Intracranial segment is patent with no significant stenosis. No aneurysm. Right anterior cerebral artery: No occlusion or significant stenosis. No aneurysm. Right middle cerebral artery: No occlusion or significant stenosis. No aneurysm. Right posterior cerebral artery: No occlusion or significant stenosis. No aneurysm. Right vertebral artery: Unremarkable. Left internal carotid artery: Intracranial segment is patent with no significant stenosis. No aneurysm. Left anterior cerebral artery: No occlusion or significant stenosis. No aneurysm. Left middle cerebral artery: No occlusion or significant stenosis. No aneurysm. Left posterior cerebral artery: No occlusion or significant stenosis. No aneurysm. Left vertebral artery: Unremarkable. Basilar artery: No occlusion or significant stenosis. No aneurysm. IMPRESSION: No significant stenosis. EXAM: CT Angiography Neck With Intravenous Contrast CLINICAL HISTORY: ITS.REASON CT Reason: headache, vertigo, hx brain bleed TECHNIQUE: Axial computed tomographic angiography images of the neck with intravenous contrast. CTDI is 22.75 mGy and DLP is 298.5 mGy-cm. This CT exam was performed using one or more of the following dose reduction techniques: automated exposure control, adjustment of the mA and/or kV according to patient size, and/or use of iterative reconstruction technique. MIP reconstructed images were created and reviewed. COMPARISON: No relevant prior studies available. FINDINGS: VASCULATURE: Right common carotid artery: No significant stenosis. No dissection. Right internal carotid artery: Extracranial has no significant stenosis. No dissection. Right vertebral artery: Mild stenosis at the origin from atherosclerosis. No dissection. Left common carotid artery: No significant stenosis. No dissection. Left internal carotid artery: Mild stenosis. No dissection. Left vertebral artery: Severe stenosis at the origin from atherosclerosis. No dissection. NECK: Bones/joints: No acute fracture. No dislocation. Severe COPD. 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 Mild - <50% stenosis. Moderate - 50-69% stenosis. Severe - 70-94% stenosis. Near occlusion - 95-99% stenosis. Occluded - 100% stenosis. IMPRESSION: 1. Severe left vertebral artery stenosis at the origin. 2. Mild left ICA and right vertebral artery stenosis. 3. Severe COPD. 4. 2.7 cm left thyroid gland mass recommend ultrasound if it has not been characterized already.
[2023-07-12] MEDS ORDERED: NALOXONE 0.4 MG/ML 1 ML VIAL IV PRN (04:59)
[2023-07-12] MEDS: ALBUTEROL NEBULIZED 2.5 MG/3 ML INHALATION SCH ×2 (08:55→12:07)
[2023-07-12] MEDS ORDERED: AMIODARONE 200 MG TAB PO SCH (09:00)
[2023-07-12] MEDS: TICAGRELOR 90 MG TAB PO SCH ×2 (09:04→22:05)
[2023-07-12] MEDS: MEXILETINE 200 MG CAP PO SCH ×3 (09:08→22:05)
[2023-07-12] MEDS ORDERED: METOPROLOL SUCCINATE (ER) 50 MG TAB.ER.24H PO SCH (12:00)
[2023-07-12] MEDS: ACETAMINOPHEN TAB 500 MG TAB PO PRN ×2 (12:37→17:35)
[2023-07-12] MEDS: ENOXAPARIN 40 MG/0.4 ML SYRINGE SQ SCH (12:40)
[2023-07-12] MEDS: LEVALBUTEROL 1.25 MG/3 ML INHALATION SCH ×2 (12:45→19:48)
[2023-07-12] MEDS ORDERED: ALBUTEROL NEBULIZED 2.5 MG/3 ML INHALATION PRN (13:14)
--- NOTE | 2023-07-12 13:41 | P.HPIM ---
History of Present Illness H&P Date: 07/12/23 Chief Complaint: Dizziness This is a pleasant 73-year-old patient who follows with Dr. Alex Domniguez. Chronic stable medical conditions include COPD, hyperlipidemia, nonischemic cardiomyopathy, CHF, although denies left ventricular apical clot, brain bleed while on blood thinners in 2009, AICD, pacemaker VT ablation in 2015. Patient is accompanied by his daughter the bedside. Yesterday around 6 PM patient noted that she was feeling as if head is floating and was unsteady. No change in appetite a bowel movement. No ear symptoms. Has had a slight headache in the last 2 days. No change in vision or speech. Patient has been to a chiropractor the last few days and has had had manipulation done. Patient's symptoms especially present when he moves his head or moves about. Daughter is concerned about patient's AICD and wants Dr. Li to see the patient Review of systems: GEN.: Tired EYES: None HEENT: Slight headache NECK: None RESPIRATORY: None CARDIOVASCULAR: None GASTROINTESTINAL: None GENITOURINARY: None MUSCULOSKELETAL: Joint pains LYMPHATICS: None HEMATOLOGICAL: None PSYCHIATRY: None NEUROLOGICAL: As above Past medical history to include: COPD, hyperlipidemia, nonischemic cardiac myopathy, CHF, although denies left ventricle apical clot, V. tach ablation, AICD, pacemaker, brain surgery following bleed from blood tenderness in 2009 Social history: Lives with his . Normally able to walk on his own. Patient smoked for 20 years 4-5 cigarettes a day stopped at 38. Alcohol none. Physical examination: VITAL SIGNS: 98, 50, 18, 11 5 x 6 2, 98% room air GENERAL: BMI 26.8, sitting at the edge of the bed, tired appearing. EYES: Pupils equal. Conjunctiva normal. HEENT: External appearance of nose and ears normal, oral cavity grossly normal. NECK: JVD not raised; masses not palpable. HEART: First and second heart sounds are normal; no edema. LUNGS: Respiratory rate normal; clear to auscultation. ABDOMEN: Soft, nontender, liver spleen not palpable, no masses palpable. PSYCH: Alert and oriented x3; mood and affect normal. MUSCULOSKELETAL:No Clubbing/cyanosis;muscles-grossly intact. OA NEUROLOGICAL: Cranial nerves grossly intact; no facial asymmetry, power and sensation grossly intact. No nystagmus. LYMPHATICS: No lymph nodes palpable in the axilla and neck INVESTIGATIONS, reviewed in the clinical context: White count 5.2 hemoglobin 13 platelets 143 sodium 139 potassium 4.5 BUN 19 creatinine 0.99 EKG tracing personally reviewed by me-atrial pacemaker. CT angiogram of the brain: Severe left vertebral artery stenosis at the origin. Severe COPD. Left thyroid gland tumor at 2.[address] brain unremarkable. Assessment plan: -This patient presents with rather acute presentation of dizziness. Feeling his head is floating. Had to hold onto the chandra to move. He feels especially the symptoms, but is moving his head. Not well still. Patient recently had had manipulation done because of a chiropractor. Differential includes BPPV. Given that patient has an AICD daughter concerned about any underlying arrhythmias. Cerebellar ischemia as the differential, which is obviously not picked up on the CAT scan. Structures Technician Dr. Timmy Dalal, neurology Dee maneuver -COPD in a previous smoker Xopenex 3 times a day -Hyperlipidemia Lipitor 80 mg daily at bedtime -AICD -Nonischemic cardiac myopathy, EF not known Toprol-XL 50 mg a day, Aldactone 25 mg daily, Entresto -Primary osteoarthritis Pain control when necessary Consultation to cardiology, neurology. Dee maneuver. Telemetry. Home me dications resumed. Past Medical History Past Medical History: Asthma, COPD, Hyperlipidemia Additional Past Medical History / Comment(s): VTach, nonischemic cardiomyopathy, CHF, organized left ventricular apical clot, previous DVT ablation, asthma requiring intubation twice, BRAIN BLEED WHILE ON BLOOD THINNER RX 2009, cataracts bilaterally History of Any Multi-Drug Resistant Organisms: None Reported Past Surgical History: AICD, EPS, Pacemaker Additional Past Surgical History / Comment(s): 12/07/15 EPS [facility] [place] ablation. Other surgical hx: BRAIN SURGERY FOLLOWING BLEED. AICD/PACEMAKER, [facility]. generator change, Defibrilator testing Past Anesthesia/Blood Transfusion Reactions: No Reported Reaction Type of Cardiac Device: Permanent Pacemaker, AICD Device Placement Date:: 2005 implanted with gen change 2012 Past Psychological History: No Psychological Hx Reported Smoking Status: Never smoker Past Alcohol Use History: None Reported Past Drug Use History: None Reported - Past Family History Mother Family Medical History: No Reported History Additional Family Medical History / Comment(s): Mother at age 92 yrs. Father Family Medical History: No Reported History Additional Family Medical History / Comment(s): Father is healthy and 95 yrs old. Medications and Allergies Home Medications Medication Instructions Recorded Confirmed Type Montelukast [Singulair] 10 mg PO HS 09/12/15 07/12/23 History Spironolactone [Aldactone] 25 mg PO DAILY 09/12/15 07/12/23 History Levalbuterol Hfa Inhaler [Xopenex 1 puff INHALATION RT-Q6H PRN 07/17/17 07/12/23 History Hfa Inhaler] Levalbuterol Nebulized [Xopenex 1.25 mg INHALATION RT-TID 07/17/17 07/12/23 History Nebulized] predniSONE 5 mg PO DAILY 02/12/19 07/12/23 History Mexiletine HCl 200 mg PO Q8H 01/30/23 07/12/23 History Aspirin EC [Ecotrin Low Dose] 81 mg PO DAILY #90 tab 02/27/23 07/12/23 Rx Ezetimibe [Zetia] 10 mg PO DAILY #90 tab 02/27/23 07/12/23 Rx Atorvastatin [Lipitor] 80 mg PO HS 03/14/23 07/12/23 History Metoprolol Succinate (ER) [Toprol 50 mg PO DAILY@1200 #30 tab 03/18/23 07/12/23 Rx XL] Amiodarone [Cordarone] 200 mg PO DAILY 07/12/23 07/12/23 History Clopidogrel [Plavix] 75 mg PO DAILY 07/12/23 07/12/23 History Sacubitril/Valsartan [Entresto 24 1 tab PO BID 07/12/23 07/12/23 History mg-26 mg Tablet] Allergies Allergy/AdvReac Type Severity Reaction Status Date / Time hydrocodone [From [place]] Allergy Difficulty Verified 07/12/23 12:11 breathing due to asthma ibuprofen Allergy Was told Verified 07/12/23 12:11 not to take while on Brilinta Physical Exam Vitals: Vital Signs Temp Pulse Pulse Resp BP BP Pulse Ox 07/12/23 06:23 97.6 F 56 L 15 149/72 96 07/12/23 05:46 52 L 18 120/53 95 07/12/23 04:00 54 L 18 133/99 95 07/12/23 02:00 56 L 18 147/87 95 07/12/23 00:53 50 L 18 158/90 95 07/11/23 23:57 50 L 18 153/88 97 07/11/23 22:04 98 F 50 L 18 115/62 98 Intake and Output 07/11/23 07/12/23 07/12/23 22:59 06:59 14:59 Intake Total 118 Balance 118 Intake: Oral 118 Other: # Voids 1 Weight 87.09 kg 87.09 kg Results CBC & Chem 7: 07/11/23 23:34 07/11/23 23:34 Labs: Abnormal Lab Results - Last 24 Hours (Table) 07/11/23 07/11/23 Range/Units 23:34 23:34 RBC 4.19 L (4.30-5.90) m/uL Plt Count 143 L (150-450) k/uL Chloride 108 H (98-107) mmol/L Total Protein 5.7 L (6.3-8.2) g/dL Thrombosis Risk Factor Assmnt - Choose All That Apply Any of the Below Risk Factors Present?: Yes Each Factor Represents 1 point: Abnormal pulmonary function (COPD), Obesity (BMI >25) Other Risk Factors: Yes Each Risk Factor Represents 2 Points: Age 61-74 years Each Risk Factor Represents 3 Points: Family history of DVT/PE Other congenital or acquired thrombophilia - If yes, enter type in comment: No Thrombosis Risk Factor Assessment Total Risk Factor Score: 7 Thrombosis Risk Factor Assessment Level: High Risk
[2023-07-12] MEDS: EZETIMIBE 10 MG TAB PO SCH (17:36)
[2023-07-12] MEDS ORDERED: MECLIZINE 12.5 MG TAB PO PRN (18:15)
[2023-07-12] MEDS: ATORVASTATIN 80 MG TAB PO SCH (22:05)
[2023-07-12] MEDS: MONTELUKAST 10 MG TAB PO SCH (22:05)
[2023-07-12] MEDS: SACUBITRIL/VALSARTAN 24 MG-26 MG TABLET PO SCH (22:05)
[2023-07-13] MEDS: LEVALBUTEROL 1.25 MG/3 ML INHALATION SCH ×3 (08:32→20:16)
[2023-07-13 08:43] LABS: Basophils # (A) 0.03 X 10*3/uL (0.00-0.10); Basophils % (A) 0.3 %; Eosinophils # (A) 0.03 X 10*3/uL (0.04-0.35); Eosinophils % (A) 0.3 %; HCT 42.2 % (39.6-50.0); HGB 13.7 g/dL (13.0-17.0); Lymphocytes % (A) 12.3 %; MCHC 32.5 g/dL (32.0-37.0); MCV 92.3 FL (80.0-97.0); Monocytes # (A) 0.86 X 10*3/uL (0.20-1.00); Monocytes % (A) 8.8 %; NRBC Per 100 WBC 0 X 10*3/uL (0.00-0.01); Neutrophils % (A) 77.9 %; Platelet Count 160 X 10*3/uL (140-440); RBC 4.57 X 10*6/uL (4.40-5.60); RDW 14.6 % (11.5-14.5); WBC 9.76 X 10*3/uL (4.50-10.00)
--- NOTE | 2023-07-13 09:06 | P.CNNES ---
History of Present Illness Consult date: 07/12/23 Requesting physician: Quiana Cannon Reason for Consult: vertigo, vertebral artery occlusion History of Present Illness: Patient is a 80-year-old male with history of hypertension, came to the hospital yesterday at 9:42 PM for headache and dizziness. Patient is not a very good historian. Patient states that he was fine all day yesterday. Around 6 PM he was watching TV, got up to go to the kitchen and suddenly could not walk, as everything in the head was swimming/floating. He denied vertigo or spinning sensation. He sat down. He checked his blood pressure which was 177 systolic. He called his daughter, who brought him to the hospital. Patient denies any visual symptoms. He has history of cardiac stents. Denies any dysarthria, or any facial droop. He feels his balance is off with dizziness. Patient claims that he has runny nose for last 8 weeks but denies any obvious upper respiratory infection. He states that the dizziness occurs when he walks, or when he sits up. Does not occur when he rolls over in the bed or looking up or down. It does not happen when he lays down in the bed either. It feels like a movement inside his head. He still feels slightly dizzy. The headache has resolved s muna he received Tylenol. Patient does have a pacemaker. Patient's daughter states that patient has been having some headaches for last 1 month, for which he has been going to chiropractor every Friday for the last 6 weeks for neck adjustments. The last adjustment was done last 07/08/20. Patient complains of headache, which which he points by frontal region and then side of the head which he rates 5/10, without any nausea vomiting light or noise sensitivity, aching type. The headache resolves with Tylenol. He denies any excessive caffeine intake although he does drink a lot of tea all day. Patient states that in February 2023, he had an episode of dizziness for which he was hospitalized at [facility] for 5 days. It was felt the dizziness was related to amiodarone, as he was taking 1200 mg per day. His dose of amiodarone was decreased in the dizziness resolved. Patient has history of a fall in February 2014. He started having headaches and then started having speech difficulties. He did not seek medical attention until April 2014 when he was found to have subdural hematoma. He required bilateral darshan hole craniotomy at that time. Patient says the headache resolved after the hematoma resolved. Patient required significant speech therapy after the craniotomy. Patient has history of hypertension, but denies diabetes. He is a nonsmoker. He does have COPD related to previous exposure to asbestos. Vital signs on arrival blood pressure 1:15/62, pulse rate 50, temperature 98.0. His blood pressure has been fairly well controlled in the hospital, although sometimes goes up to around 160 systolic range. His blood test shows normal CBC, normal CMP. Troponin negative. EKG shows electronic atrial pacemaker. CT of the head showed no acute hemorrhage, hydrocephalus or mass effect. I personally reviewed CT head, agree with the findings. On my review, there is evidence of old encephalomalacia in the left parietal region. Visualized paranasal sinuses, and external auditory canals are clear. Home medications include Plavix 75 mg, aspirin 81 mg, Lipitor 80 mg, amiodarone 200 mg, metoprolol, Zetia 10 mg, mexiletine 200 mg every 8 hours, prednisone 5 mg daily, Aldactone, Singulair and some inhalers. Review of Systems Constitutional: Denies chills, Denies fever Eyes: denies blurred vision, denies diplopia, denies pain Ears: bilateral: decreased hearing, deny: ear discharge, earache, tinnitus Ears, nose, mouth and throat: Reports headache, Reports nasal congestion, Reports nasal discharge, Denies post-nasal drip, Denies sore throat, Denies vertigo Cardiovascular: Reports high blood pressure, Reports shortness of breath, Denies chest pain Respiratory: Denies cough, Denies excessive sputum Gastrointestinal: Denies abdominal pain, Denies diarrhea, Denies nausea, Denies vomiting Genitourinary: Denies incontinence, Denies urinary frequency Musculoskeletal: Reports low back pain, Reports neck pain, Denies myalgias Integumentary: Denies pruritus, Denies rash Neurological: Reports as per HPI Psychiatric: Denies anxiety, Denies depression Hematologic/Lymphatic: Reports easy bleeding, Reports easy bruising Past Medical History Past Medical History: Asthma, COPD, Hyperlipidemia Additional Past Medical History / Comment(s): VTach, nonischemic cardiomyopathy, CHF, organized left ventricular apical clot, previous DVT ablation, asthma requiring intubation twice, BRAIN BLEED WHILE ON BLOOD THINNER RX 2009, cataracts bilaterally History of Any Multi-Drug Resistant Organisms: None Reported Past Surgical History: AICD, EPS, Pacemaker Additional Past Surgical History / Comment(s): 12/07/15 EPS wtih VT ablation. Other surgical hx: BRAIN SURGERY FOLLOWING BLEED. AICD/PACEMAKER, [facility]. generator change, Defibrilator testing Past Anesthesia/Blood Transfusion Reactions: No Reported Reaction Type of Cardiac Device: Permanent Pacemaker, AICD Device Placement Date:: 2005 implanted with gen change 2012 Past Psychological History: No Psychological Hx Reported Smoking Status: Never smoker Past Alcohol Use History: None Reported Past Drug Use History: None Reported - Past Family History Mother Family Medical History: No Reported History Additional Family Medical History / Comment(s): Mother at age 92 yrs. Father Family Medical History: No Reported History Additional Family Medical History / Comment(s): Father is healthy and 95 yrs old. Medications and Allergies Home Medications Medication Instructions Recorded Confirmed Type Montelukast [Singulair] 10 mg PO HS 09/12/15 07/12/23 History Spironolactone [Aldactone] 25 mg PO DAILY 09/12/15 07/12/23 History Levalbuterol Hfa Inhaler [Xopenex 1 puff INHALATION RT-Q6H PRN 07/17/17 07/12/23 History Hfa Inhaler] Levalbuterol Nebulized [Xopenex 1.25 mg INHALATION RT-TID 07/17/17 07/12/23 History Nebulized] predniSONE 5 mg PO DAILY 02/12/19 07/12/23 History Mexiletine HCl 200 mg PO Q8H 01/30/23 07/12/23 History Aspirin EC [Ecotrin Low Dose] 81 mg PO DAILY #90 tab 02/27/23 07/12/23 Rx Ezetimibe [Zetia] 10 mg PO DAILY #90 tab 02/27/23 07/12/23 Rx Atorvastatin [Lipitor] 80 mg PO HS 03/14/23 07/12/23 History Metoprolol Succinate (ER) [Toprol 50 mg PO DAILY@1200 #30 tab 03/18/23 07/12/23 Rx XL] Amiodarone [Cordarone] 200 mg PO DAILY 07/12/23 07/12/23 History Clopidogrel [Plavix] 75 mg PO DAILY 07/12/23 07/12/23 History Sacubitril/Valsartan [Entresto 24 1 tab PO BID 07/12/23 07/12/23 History mg-26 mg Tablet] Allergies Allergy/AdvReac Type Severity Reaction Status Date / Time hydrocodone [From [place]] Allergy Difficulty Verified 07/12/23 12:11 breathing due to asthma ibuprofen Allergy Was told Verified 07/12/23 12:11 not to take while on Brilinta Physical Examination - Vital Signs Vital Signs: Vital Signs Temp Pulse Pulse Resp BP BP Pulse Ox 07/12/23 14:36 98.0 F 58 L 12 143/74 97 07/12/23 14:00 18 07/12/23 12:55 59 L 07/12/23 12:46 57 L 07/12/23 08:00 18 07/12/23 06:23 97.6 F 56 L 15 149/72 96 07/12/23 05:46 52 L 18 120/53 95 07/12/23 04:00 54 L 18 133/99 95 07/12/23 02:00 56 L 18 147/87 95 07/12/23 00:53 50 L 18 158/90 95 07/11/23 23:57 50 L 18 153/88 97 07/11/23 22:04 98 F 50 L 18 115/62 98 Intake and Output 07/12/23 07/12/23 07/12/23 06:59 14:59 22:59 Intake Total 118 Balance 118 Intake: Oral 118 Other: # Voids 1 Weight 87.09 kg Patient is an elderly male, very pleasant, in no acute distress. Patient is alert awake oriented to time place and person. Patient has slightly slow speech, which according to his daughter is baseline since his craniotomy. Speech and language functions are normal. Patient can name and repeat very well. No aphasia or dysarthria. Attention, concentration and fund of knowledge is adequate. Patient does have slightly slow mentation, prolonged latency time to answer questions. On cranial nerve examination, pupils are equal, round and reacting to light, visual cuevas are full on confrontation, with no neglect on double simultaneous stimulation. Extraocular muscles are intact with no nystagmus. Face is symmetric, tongue protrudes to the midline. Palatal elevation and sensation normal, hearing is decreased, and shoulder shrug normal, facial sensation normal. On muscle strength testing, there is no pronator drift and the strength is normal in arms and legs distally and proximally. Deep tendon reflexes are symmetric, hypoactive and plantars downgoing. Sensory to touch is equal with no neglect on double simultaneous stimulation. Cerebellar function showed no ataxia for [id number] testing. No dysdiadochokinesia. No ataxia for [id number] testing on either side. Tone and bulk of muscles normal. Gait patient walks fairly steadily, with somewhat narrow base. Patient does have slight imbalance but he walked without any assistance in the room to the bathroom. On general examination, there is no carotid bruit or murmur, S1-S2 audible. Chest is clear on consultation. Abdomen is soft nontender. No organomegaly, bowel sounds present. Peripheral pulses are present. No peripheral edema. Results - Laboratory Findings CBC and BMP: 07/11/23 23:34 07/11/23 23:34 Abnormal Lab Findings: Abnormal Labs 07/11/23 07/11/23 23:34 23:34 RBC 4.19 L Plt Count 143 L Chloride 108 H Total Protein 5.7 L Assessment and Plan Assessment: * Dizziness, imbalance and some headache, unclear cause. Patient's examination is nonfocal. Current NIH stroke scale is 0. Patient does have history of nasal drainage for last 8 weeks, which raises concern for possible peripheral vestibular dysfunction/labyrinthitis. CTA of head and neck revealed severe left vertebral artery stenosis at the origin. TIA is also in the differential, especially given recent history of neck pain ablation by the c tressaopractor in the last 6 weeks. * Left vertebral artery stenosis * Hypertension * COPD Plan: * Patient will be started on meclizine 12.5 mg 3 times a day when necessary for dizziness. * Patient's headache resolves with Tylenol, therefore we will stay with the same. * CTA of head shows no significant stenosis or aneurysm. * CTA of the neck showed severe left vertebral artery stenosis at the origin. Mild left ICA and right vertebral artery stenosis. Severe COPD. 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 This thyroid mass to be addressed by internal medicine. * Continue aspirin 81 mg, Plavix 75 mg, Lipitor 80 mg and Zetia 10 mg. * Patient cannot have MRI of the brain because of pacemaker. * Blood pressure is fairly well controlled. * Patient and his daughter recommended to stop chiropractic manipulation, due to risk of dissection. * We will check B12, folate, CRP and ESR. * Hemoglobin A1c 5.9 * It remains stable overnight, then we will be clear for discharge. * Thank you for the consult.
[2023-07-13 09:07] LABS: BUN/Creat Ratio 10.78 Ratio (12.00-20.00); Blood Urea Nitrogen 9.7 mg/dL (9.0-27.0); Calcium 9.5 mg/dL (8.7-10.3); Carbon Dioxide 21.8 mmol/L (21.6-31.8); Chloride 103 mmol/L (96-109); Glucose 131 mg/dL (70-110); Potassium 4.3 mmol/L (3.5-5.5); Sodium 138 mmol/L (135-145)
[2023-07-13 09:11] LABS: Erythrocyte Sedimentation Rate 9 mm/Hr (0-20)
[2023-07-13] MEDS: SPIRONOLACTONE 25 MG TAB PO SCH (09:32)
[2023-07-13] MEDS: TICAGRELOR 90 MG TAB PO SCH ×2 (09:32→20:37)
[2023-07-13] MEDS: SACUBITRIL/VALSARTAN 24 MG-26 MG TABLET PO SCH ×2 (09:32→20:37)
[2023-07-13] MEDS: EZETIMIBE 10 MG TAB PO SCH (09:33)
[2023-07-13] MEDS: MEXILETINE 200 MG CAP PO SCH ×3 (09:33→20:38)
[2023-07-13] MEDS: predniSONE 5 MG TAB PO SCH (09:33)
[2023-07-13] MEDS: ENOXAPARIN 40 MG/0.4 ML SYRINGE SQ SCH (09:33)
[2023-07-13] MEDS: AMIODARONE 200 MG TAB PO SCH (09:33)
[2023-07-13] MEDS: ASPIRIN 81 MG PO SCH (09:33)
[2023-07-13] MEDS: METOPROLOL SUCCINATE (ER) 50 MG TAB.ER.24H PO SCH ×2 (11:28→20:38)
--- NOTE | 2023-07-13 12:32 | P.CRDCN ---
History of Present Illness Consult date: 07/13/23 Reason for Consult (text): dizziness History of present illness: The patient is a 73-year-old male who follows in the office with Dr. Li. He presented to the emergency room with dizziness and headache. He states this had progressively gotten worse over the last 48 hours. The patient reported that this pain was worsened with movement of his neck and he did recently undergo chiropractic adjustment. Cardiology has been consulted with his history of ventricular tachycardia. DIAGNOSTICS: EKG shows paced rhythm CT of the brain shows no acute hemorrhage, hydrocephalus or mass effect CT angiogram of the neck shows severe left vertebral artery stenosis, with otherwise minimal disease Lab data: W BC 9.7, hemoglobin 13.7, hematocrit 42.2, platelet 160, sodium 138, BUN 9, creatinine 0.9, potassium 4.3, hemoglobin A1c 5.9, magnesium 2.2, AST 77, ALT 28, troponin 0.01 REVIEW OF SYSTEMS: No fever or chills. No cough or expectoration. No diaphoresis. Patient denies double vision. Positive for headache and dizziness. Patient denies any stomach discomfort. No nausea, vomiting. No hematochezia. No hematemesis. Denies any black stools or blood in his stools. Denies dysuria or hematuria. No muscle weakness or numbness. Denies chest pain or chest pressure. Denies dyspnea PHYSICAL EXAMINATION: This is a 73-year-old male in no apparent distress at the time of my examination. HEENT: Head is atraumatic, normocephalic. There is no jugular venous distention. No carotid bruit is heard. CHEST EXAMINATION: Lungs are clear to auscultation. No chest wall tenderness is noted on palpation or with deep breathing. HEART EXAMINATION: Heart regular rate and rhythm. S1, S2 heard. No murmurs, gallops or rub. ABDOMEN: Soft, nontender. Bowel sounds are heard. No organomegaly noted. EXTREMITIES: 2+ peripheral pulses with no evidence of peripheral edema and no calf tenderness noted. NEUROLOGIC EXAMINATION: Patient is awake, alert and oriented x3. FINAL ASSESSMENT AND PLAN: Dizziness Ventricular tachycardia, on amiodarone and mexiletine Status post AICD Nonischemic Cardiomyopathy Single-vessel coronary artery disease Hyperlipidemia Left vertebral artery stenosis History of COPD PLAN: Check TSH Interrogate ICD to assess for arrhythmia Continue dual antiplatelet therapy Check orthostatics Increase beta jonas Further recommendations based on clinical course I am dictating on behalf of Dr Timmy Li's history/physical and assessment/plan. Past Medical History Past Medical History: Asthma, COPD, Hyperlipidemia Additional Past Medical History / Comment(s): VTach, nonischemic cardiomyopathy, CHF, organized left ventricular apical clot, previous DVT ablation, asthma requiring intubation twice, BRAIN BLEED WHILE ON BLOOD THINNER RX 2009, cataracts bilaterally History of Any Multi-Drug Resistant Organisms: None Reported Past Surgical History: AICD, EPS, Pacemaker Additional Past Surgical History / Comment(s): 12/07/15 EPS wt VT ablation. Other surgical hx: BRAIN SURGERY FOLLOWING BLEED. AICD/PACEMAKER, [facility]. generator change, Defibrilator testing Past Anesthesia/Blood Transfusion Reactions: No Reported Reaction Type of Cardiac Device: Permanent Pacemaker, AICD Device Placement Date:: 2005 implanted with gen change 2012 Past Psychological History: No Psychological Hx Reported Smoking Status: Never smoker Past Alcohol Use History: None Reported Past Drug Use History: None Reported - Past Family History Mother Family Medical History: No Reported History Additional Family Medical History / Comment(s): Mother at age 92 yrs. Father Family Medical History: No Reported History Additional Family Medical History / Comment(s): Father is healthy and 95 yrs old. Medications and Allergies Home Medications Medication Instructions Recorded Confirmed Type Montelukast [Singulair] 10 mg PO HS 09/12/15 07/12/23 History Spironolactone [Aldactone] 25 mg PO DAILY 09/12/15 07/12/23 History Levalbuterol Hfa Inhaler [Xopenex 1 puff INHALATION RT-Q6H PRN 07/17/17 07/12/23 History Hfa Inhaler] Levalbuterol Nebulized [Xopenex 1.25 mg INHALATION RT-TID 07/17/17 07/12/23 History Nebulized] predniSONE 5 mg PO DAILY 02/12/19 07/12/23 History Mexiletine HCl 200 mg PO Q8H 01/30/23 07/12/23 History Aspirin EC [Ecotrin Low Dose] 81 mg PO DAILY #90 tab 02/27/23 07/12/23 Rx Ezetimibe [Zetia] 10 mg PO DAILY #90 tab 02/27/23 07/12/23 Rx Atorvastatin [Lipitor] 80 mg PO HS 03/14/23 07/12/23 History Metoprolol Succinate (ER) [Toprol 50 mg PO DAILY@1200 #30 tab 03/18/23 07/12/23 Rx XL] Amiodarone [Cordarone] 200 mg PO DAILY 07/12/23 07/12/23 History Clopidogrel [Plavix] 75 mg PO DAILY 07/12/23 07/12/23 History Sacubitril/Valsartan [Entresto 24 1 tab PO BID 07/12/23 07/12/23 History mg-26 mg Tablet] Allergies Allergy/AdvReac Type Severity Reaction Status Date / Time hydrocodone [From [place]] Allergy Difficulty Verified 07/12/23 12:11 breathing due to asthma ibuprofen Allergy Was told Verified 07/12/23 12:11 not to take while on Brilinta Physical Exam Vitals: Vital Signs Temp Pulse Pulse Resp BP Pulse Ox 07/13/23 08:50 67 07/13/23 08:33 68 07/13/23 07:00 97.7 F 64 14 156/88 95 07/13/23 02:00 97.6 F 62 15 163/89 97 07/12/23 20:01 60 07/12/23 19:48 58 L 07/12/23 19:17 97.8 F 58 L 15 162/87 99 07/12/23 14:36 98.0 F 58 L 12 143/74 97 07/12/23 14:00 18 07/12/23 12:55 59 L 07/12/23 12:46 57 L Intake and Output 07/12/23 07/13/23 07/13/23 22:59 06:59 14:59 Intake Total 100 0 Balance 100 0 Intake: Oral 100 0 Other: # Voids 1 1 Results 07/13/23 05:37 07/13/23 05:37 CBC 07/13/23 Range/Units 05:37 WBC 9.76 (4.50-10.00) X 10*3/uL RBC 4.57 (4.40-5.60) X 10*6/uL Hgb 13.7 (13.0-17.0) g/dL Hct 42.2 (39.6-50.0) % Plt Count 160 (140-440) X 10*3/uL Comprehensive Metabolic Panel 07/13/23 Range/Units 05:37 Sodium 138 (135-145) mmol/L Potassium 4.3 (3.5-5.5) mmol/L Chloride 103 (96-109) mmol/L Carbon Dioxide 21.8 (21.6-31.8) mmol/L BUN 9.7 (9.0-27.0) mg/dL Creatinine 0.9 (0.6-1.5) mg/dL Glucose 131 H (70-110) mg/dL Calcium 9.5 (8.7-10.3) mg/dL Current Medications Generic Name Dose Route Start Last Admin Trade Name Freq PRN Reason Stop Dose Admin Acetaminophen 500 mg 07/12/23 12:20 07/12/23 17:35 Acetaminophen Tab 500 Mg Tab PO 500 mg Q6HR PRN Administration Fever and/ or Pain Albuterol Sulfate 2.5 mg 07/12/23 13:14 Albuterol Nebulized 2.5 Mg/3 Ml INHALATION RT-Q6H PRN Shortness Of Breath Amiodarone HCl 200 mg 07/13/23 09:00 07/13/23 09:33 Amiodarone 200 Mg Tab PO 200 mg DAILY JOSE MIGUEL Administration Aspirin 81 mg 07/13/23 09:00 07/13/23 09:33 Aspirin 81 Mg PO 81 mg DAILY JOSE MIGUEL Administration Atorvastatin Calcium 80 mg 07/12/23 21:00 07/12/23 22:05 Atorvastatin 80 Mg Tab PO 80 mg HS JOSE MIGUEL Administration Ezetimibe 10 mg 07/12/23 13:30 07/13/23 09:33 Ezetimibe 10 Mg Tab PO 10 mg DAILY JOSE MIGUEL Administration Enoxaparin Sodium 40 mg 07/12/23 10:30 07/13/23 09:33 Enoxaparin 40 Mg/0.4 Ml Syringe SQ 40 mg DAILY JOSE MIGUEL Administration Meclizine HCl 12.5 mg 07/12/23 18:15 Meclizine 12.5 Mg Tab PO TID PRN Vertigo Metoprolol Succinate 50 mg 07/12/23 12:00 07/12/23 17:35 Metoprolol Succinate (Er) 50 Mg Tab.Er.24h PO 50 mg DAILY@1200 [facility] Administration Mexiletine HCl 200 mg 07/12/23 08:00 07/13/23 09:33 Mexiletine 200 Mg Cap PO 200 mg Q8HR JOSE MIGUEL Administration Montelukast Sodium 10 mg 07/12/23 21:00 07/12/23 22:05 Montelukast 10 Mg Tab PO 10 mg HS JOSE MIGUEL Administration Naloxone HCl 0.2 mg 07/12/23 04:59 Naloxone 0.4 Mg/Ml 1 Ml Vial IV Q2M PRN Opioid Reversal Levalbuterol 1.25 Mg 1 each 07/12/23 13:00 07/13/23 08:32 /3ml Inhalation Neb INHALATION 1 each RT-TID JOSE MIGUEL Administration Prednisone 5 mg 07/13/23 09:00 07/13/23 09:33 Prednisone 5 Mg Tab PO 5 mg DAILY JOSE MIGUEL Administration Sacubitril/Valsartan 1 each 07/12/23 21:00 07/13/23 09:32 Sacubitril/Valsartan 24 Mg-26 Mg Tablet PO 1 each BID JOSE MIGUEL Administration Spironolactone 25 mg 07/13/23 09:00 07/13/23 09:32 Spironolactone 25 Mg Tab PO 25 mg DAILY JOSE MIGUEL Administration Ticagrelor 90 mg 07/12/23 09:00 07/13/23 09:32 Ticagrelor 90 Mg Tab PO 90 mg BID JOSE MIGUEL Administration Intake and Output 07/12/23 07/13/23 07/13/23 22:59 06:59 14:59 Intake Total 100 0 Balance 100 0 Intake: Oral 100 0 Other: # Voids 1 1 07/13/23 05:37 07/13/23 05:37
[2023-07-13] MEDS ORDERED: CYANOCOBALAMIN 1,000 MCG/ML 1 ML VIAL IM ONE (14:00)
--- NOTE | 2023-07-13 17:27 | CT ---
EXAMINATION TYPE: CT brain wo con DATE OF EXAM: 07/13/2023 COMPARISON: 07/12/2023 HISTORY: Vertigo. CT DLP: 1177.6 mGycm Automated exposure control for dose reduction was used. FINDINGS: The ventricles, basal cisterns and sulci over the convexities within normal limits for the patient's age. There is no mass effect or shift of midline structures. 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 There is no acute intra or extra-axi al hemorrhage. Posterior fossa is grossly normal. Intraorbital contents appear normal and symmetric. Visualized paranasal sinuses mastoid air cells are well aerated. There are multiple darshan holes in the calvarium bilaterally. IMPRESSION: 1. No acute bleed or mass effect. 2. 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 3. No mass effect or shift of midline structures. 4. Posterior fossa are grossly normal. 5. Postsurgical changes involving the calvarium is described. IMPRESSION:
[2023-07-13] MEDS: ATORVASTATIN 80 MG TAB PO SCH (20:37)
[2023-07-13] MEDS: MONTELUKAST 10 MG TAB PO SCH (20:38)
[2023-07-13] MEDS: MECLIZINE 25 MG TAB PO PRN (20:38)
--- NOTE | 2023-07-14 02:40 | P.PN ---
Subjective Progress Note Date: 07/13/23 Patient was seen for a follow-up. Patient's daughter was also present today. She mentions that patient has started dry heaving since last night. At 5 AM he woke up to feeling nauseous. He sat up on the side of the bed and started dry heaving. Later during the day, he again had dry heaving, when he stood up. He denies any focal symptoms. Denies any headache. No slurred speech or facial droop. Objective - Vital Signs Vital signs: Vital Signs Temp 97.7 F 07/13/23 07:00 Pulse 74 07/13/23 12:33 Resp 12 07/13/23 11:39 BP 184/71 07/13/23 11:39 Pulse Ox 97 07/13/23 11:39 FiO2 Intake & Output 07/12/23 07/13/23 07/13/23 18:59 06:59 18:59 Intake Total 218 0 Balance 218 0 Intake: Oral 218 0 Other: # Voids 1 - Exam Patient is alert and awake, appears comfortable. Mental status, speech and language functions are stable. Pupils are equal, round and reactive to light. Extraocular muscles are intact with no nystagmus. Visual cuevas are full with no neglect. Face is symmetric and tongue protrudes the midline. Hearing is decreased. On muscle strength testing there is no pronator drift and the strength is normal in arms and legs. There is no ataxia for [id number] or [id number] testing. Sensations are equal. No neglect. - Labs CBC & Chem 7: 07/13/23 05:37 07/13/23 05:37 Labs: Abnormal Lab Results - Last 24 Hours (Table) 07/13/23 07/13/23 Range/Units 05:37 05:37 RDW 14.6 H (11.5-14.5) % Eosinophils # 0.03 L (0.04-0.35) X 10*3/uL Anion Gap 13.20 H (4.00-12.00) mmol/L BUN/Creatinine Ratio 10.78 L (12.00-20.00) Ratio Glucose 131 H (70-110) mg/dL Assessment and Plan Assessment: * Dizziness, nausea, vomiting and imbalance, likely due to viral labyrinthitis. Patient's examination is nonfocal. Current NIH stroke scale is 0. Patient does have history of nasal drainage for last 8 weeks, which raises concern for possible peripheral vestibular dysfunction/labyrinthitis. CTA of head and neck revealed severe left vertebral artery stenosis at the origin. TIA is also in the differential, especially given recent history of neck pain ablation by the chiropractor in the last 6 weeks. No evidence of temporal arteritis with normal ESR and CRP. * Left vertebral artery stenosis * B12 deficiency * Hypertension * COPD Plan: * Patient has started dry heaving. We will increase meclizine to 25 mg 3 times a day as needed. He just received his first dose of 12.5 mg earlier today. * Patient's headache resolves with Tylenol, therefore we will stay with the same. * CTA of head shows no significant stenosis or aneurysm. * CTA of the neck showed severe left vertebral artery stenosis at the origin. Mild left ICA and right vertebral artery stenosis. Severe COPD. 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 This thyroid mass to be addressed by internal medicine. * Continue aspirin 81 mg, Plavix 75 mg, Lipitor 80 mg and Zetia 10 mg. * Patient cannot have MRI of the brain because of pacemaker. * Blood pressure is fairly well controlled. * Patient and his daughter recommended to stop chiropractic manipulation, due to risk of dissection. * B12 227, folate 10.40, CRP 0.60 and ESR 9. No evidence of temporal arteritis. Patient has B12 deficiency. Patient was given vitamin B12 1000 g IM 1 dose, followed by vitamin B12 1000 g orally daily. * Hemoglobin A1c 5.9 * Repeat CT head to rule out any CVA. It was performed, revealed no acute bleed or mass effect. 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 No mass effect or shift of midline structure. Posterior fossa are grossly normal. Postsurgical changes involving the calvarium. I personally reviewed CT had agree with the findings. No cerebellar stroke. * Neurologically clear for discharge, if gait is stable, and symptoms improved. Dr. Gee Chatman we will start neurology service from Friday morning for any neurological concerns.
[2023-07-14 02:46] VITALS: RESP 16
[2023-07-14] MEDS: LEVALBUTEROL 1.25 MG/3 ML INHALATION SCH ×2 (07:46→11:27)
[2023-07-14 08:24] VITALS: BP 144/80; TEMP 97.5
[2023-07-14] MEDS: ACETAMINOPHEN TAB 500 MG TAB PO PRN (08:44)
[2023-07-14] MEDS: ASPIRIN 81 MG PO SCH (08:45)
[2023-07-14] MEDS: METOPROLOL SUCCINATE (ER) 50 MG TAB.ER.24H PO SCH (08:45)
[2023-07-14] MEDS: SPIRONOLACTONE 25 MG TAB PO SCH (08:45)
[2023-07-14] MEDS: AMIODARONE 200 MG TAB PO SCH (08:45)
[2023-07-14] MEDS: ENOXAPARIN 40 MG/0.4 ML SYRINGE SQ SCH (08:45)
[2023-07-14] MEDS: SACUBITRIL/VALSARTAN 24 MG-26 MG TABLET PO SCH (08:45)
[2023-07-14] MEDS: MEXILETINE 200 MG CAP PO SCH (08:45)
[2023-07-14] MEDS: EZETIMIBE 10 MG TAB PO SCH (08:45)
[2023-07-14] MEDS: TICAGRELOR 90 MG TAB PO SCH (08:45)
[2023-07-14] MEDS: predniSONE 5 MG TAB PO SCH (08:46)
[2023-07-14] MEDS ORDERED: CYANOCOBALAMIN 500 MCG TAB PO SCH (09:00)
--- NOTE | 2023-07-14 09:28 | P.PN ---
Progress Note - Text Progress Note Date: 07/13/23 Chief Complaint: Dizziness This is a pleasant 73-year-old patient who follows with Dr. Alex Dominguez. Chronic stable medical conditions include COPD, hyperlipidemia, nonischemic cardiomyopathy, CHF, although denies left ventricular apical clot, brain bleed while on blood thinners in 2009, AICD, pacemaker VT ablation in 2015. Patient is accompanied by his daughter the bedside. Yesterday around 6 PM patient noted that she was feeling as if head is floating and was unsteady. No change in appetite a bowel movement. No ear symptoms. Has had a slight headache in the last 2 days. No change in vision or speech. Patient has been to a chiropractor the last few days and has had had manipulation done. Patient's symptoms especially present when he moves his head or moves about. Daughter is concerned about patient's AICD and wants Dr. Li to see the patient July 13: I performed a bedside Dee maneuver along with the nurse and the nurse aide yesterday.. Her 3 daughters. Patient was ordered of the right side. Symptoms greatly improved. He was able to walk in the hallway quite back to his baseline. Today patient laying in bed. Daughter the bedside. Patient is getting a AICD checked. Patient cleared by neuro. Discussed with daughter the patient. Patient dizziness much better. Current medications reviewed Past medical history to include: COPD, hyperlipidemia, nonischemic cardiac myopathy, CHF, although denies left ventricle apical clot, V. tach ablation, AICD, pacemaker, brain surgery following bleed from blood tenderness in 2009 Social history: Lives with his . Normally able to walk on his own. Patient smoked for 20 years 4-5 cigarettes a day stopped at 38. Alcohol none. Physical examination: VITAL SIGNS: 97.7, 65, 20, 10 9 x 64, 97% room air GENERAL: In bed, comfortable EYES: Pupils equal. Conjunctiva normal. HEENT: External appearance of nose and ears normal, oral cavity grossly normal. NECK: JVD not raised; masses not palpable. HEART: First and second heart sounds are normal; no edema. LUNGS: Respiratory rate normal; clear to auscultation. ABDOMEN: Soft, nontender, liver spleen not palpable, no masses palpable. PSYCH: Alert and oriented x3; mood and affect normal. MUSCULOSKELETAL:No Clubbing/cyanosis;muscles-grossly intact. OA NEUROLOGICAL: Cranial nerves grossly intact; no facial asymmetry, power and sensation grossly intact. No nystagmus. INVESTIGATIONS, reviewed in the clinical context: CT brain repeat [July 13]: No new findings May 13: White count 9.7 hemoglobin 13.7 platelets 160 sodium 138 potassium 4.3 creatinine 0.9 B12 227 folate 10.4 TSH 4.3 White count 5.2 hemoglobin 13 platelets 143 sodium 139 potassium 4.5 BUN 19 creatinine 0.99 EKG tracing personally reviewed by me-atrial pacemaker. CT angiogram of the brain: Severe left vertebral artery stenosis at the origin. Severe COPD. Left thyroid gland tumor at 2.[address] brain unremarkable. Assessment plan: -This patient presents with rather acute presentation of dizziness. Feeling his head is floating. Had to hold onto the chandra to move. He feels especially the symptoms, but is moving his head. Not well still. Patient recently had had manipulation done because of a chiropractor. Likely BPPV. Dr. Timmy Dalal getting the AICD checked out. Dee maneuver-was done on the right side. Very successful -COPD in a previous smoker Xopenex 3 times a day -Hyperlipidemia Lipitor 80 mg daily at bedtime -AICD -Nonischemic cardiac myopathy, EF not known Toprol-XL 50 mg a day, Aldactone 25 mg daily, Entresto -Primary osteoarthritis Pain control when necessary Discussed with likely diagnosis is BPPV. Responded very well to Dee maneuver. Discussed about the handout sheet and patient that at home 2.. Await AICD check.
[2023-07-14 12:07] VITALS: PULSE 60
--- NOTE | 2023-07-14 12:14 | P.PN ---
Subjective HISTORY OF PRESENT ILLNESS: The patient is a 73-year-old male who follows in the office with Dr. Li. He presented to the emergency room with dizziness and headache. He states this had progressively gotten worse over the last 48 hours. The patient reported that this pain was worsened with movement of his neck and he did recently undergo chiropractic adjustment. Cardiology has been consulted with his history of ventricular tachycardia. DIAGNOSTICS: EKG shows paced rhythm CT of the brain shows no acute hemorrhage, hydrocephalus or mass effect CT angiogram of the neck shows severe left vertebral artery stenosis, with otherwise minimal disease Lab data: W BC 9.7, hemoglobin 13.7, hematocrit 42.2, platelet 160, sodium 138, BUN 9, creatinine 0.9, potassium 4.3, hemoglobin A1c 5.9, magnesium 2.2, AST 77, ALT 28, troponin 0.01 07/14/2023 Patient examined this morning at the bedside. Patient denies chest pain or pressure. He denies shortness of breath. Denies any further episodes of dizziness. Blood pressure is stable. Interrogation of ICD completed with no evidence of arrhythmias. PHYSICAL EXAM: VITAL SIGNS: Reviewed. GENERAL: Well-developed in no acute distress. NECK: Supple. No JVD or thyromegaly LUNGS: Respirations even and unlabored. Lungs essentially clear to auscultation bilaterally. HEART: Regular rate and rhythm. S1 and S2 heard. EXTREMITIES: Normal range of motion. No clubbing or cyanosis. Peripheral pulses intact. No lower extremity edema ASSESSMENT: Dizziness Ventricular tachycardia, on amiodarone and mexiletine Status post AICD Nonischemic Cardiomyopathy Single-vessel coronary artery disease Hyperlipidemia Left vertebral artery stenosis History of COPD PLAN: Continue current cardiac medications Patient is currently stable for discharge home today from a cardiac standpoint He is to follow up post discharge with Dr. Li Nurse practitioner note has been reviewed by physician. Signing provider agrees with the documented findings, assessment, and plan of care. Objective - Vital Signs Vital signs: Vital Signs Temp 97.5 F L 07/14/23 07:00 Pulse 60 07/14/23 11:39 Resp 16 07/14/23 07:00 BP 144/80 07/14/23 07:00 Pulse Ox 97 07/14/23 07:00 FiO2 Intake & Output 11/19/23 11/20/23 11/20/23 18:59 06:59 18:59 Intake Total 240 120 Balance 240 120 Intake: Oral 240 120 Other: # Voids 1 - Labs CBC & Chem 7: 07/13/23 05:37 07/13/23 05:37
[2023-07-14] MEDS: MECLIZINE 25 MG TAB PO PRN (13:16)
--- NOTE | 2023-07-14 14:07 | P.DS ---
Providers Date of admission: 07/12/23 04:59 Expected date of discharge: 07/14/23 Attending physician: Trey Doshi Consults: 07/12/23 04:59 Consult Physician Urgent Consulting Provider: Clement Still Consult Reason/Comments: vertigo, vertebral artery occlusion Do you want consulting provider notified?: Yes 07/12/23 11:11 Consult Physician Routine Consulting Provider: Argelia Hutton Consult Reason/Comments: AICD- dizziness Do you want consulting provider notified?: Yes 07/12/23 13:37 Consult Physician Routine Consulting Provider: Timmy Li Consult Reason/Comments: dizziness, AICD Do you want consulting provider notified?: Yes Primary care physician: [facility] Course: Chief Complaint: Dizziness This is a pleasant 73-year-old patient who follows with Dr. Alex Dominguez. Chronic stable medical conditions include COPD, hyperlipidemia, nonischemic cardiomyopathy, CHF, although denies left ventricular apical clot, brain bleed while on blood thinners in 2009, AICD, pacemaker VT ablation in 2015. Patient is accompanied by his daughter the bedside. Yesterday around 6 PM patient noted that she was feeling as if head is floating and was unsteady. No change in appetite a bowel movement. No ear symptoms. Has had a slight headache in the last 2 days. No change in vision or speech. Patient has been to a chiropractor the last few days and has had had manipulation done. Patient's symptoms especially present when he moves his head or moves about. Daughter is concerned about patient's AICD and wants Dr. Li to see the patient July 13: I performed a bedside Dee maneuver along with the nurse and the nurse aide yesterday.. Her 3 daughters. Patient was ordered of the right side. Symptoms greatly improved. He was able to walk in the hallway quite back to his baseline. Today patient laying in bed. Daughter the bedside. Patient is getting a AICD checked. Patient cleared by neuro. Discussed with daughter the patient. Patient dizziness much better. July 14: Patient doing well. Dizziness much better. Patient to continue doing this Dee exercises daily at home. Questions answered. Discussed with kodi E. AICD was checked to be okay. Patient also being set up a follow- up with neurology outpatient. Past medical history to include: COPD, hyperlipidemia, nonischemic cardiac myopathy, CHF, although denies left ventricle apical clot, V. tach ablation, AICD, pacemaker, brain surgery following bleed from blood tenderness in 2009 Social history: Lives with his . Normally able to walk on his own. Patient smoked for 20 years 4-5 cigarettes a day stopped at 38. Alcohol none. Physical examination: VITAL SIGNS: 97.5, 53, 16, 140/80, 97% room air GENERAL: In bed, comfortable EYES: Pupils equal. Conjunctiva normal. HEENT: External appearance of nose and ears normal, oral cavity grossly normal. NECK: JVD not raised; masses not palpable. HEART: First and second heart sounds are normal; no edema. LUNGS: Respiratory rate normal; clear to auscultation. ABDOMEN: Soft, nontender, liver spleen not palpable, no masses palpable. PSYCH: Alert and oriented x3; mood and affect normal. MUSCULOSKELETAL:No Clubbing/cyanosis;muscles-grossly intact. OA NEUROLOGICAL: Cranial nerves grossly intact; no facial asymmetry, power and sensation grossly intact. No nystagmus. INVESTIGATIONS, reviewed in the clinical context: CT brain repeat [July 13]: No new findings May 13: White count 9.7 hemoglobin 13.7 platelets 160 sodium 138 potassium 4.3 creatinine 0.9 B12 227 folate 10.4 TSH 4.3 White count 5.2 hemoglobin 13 platelets 143 sodium 139 potassium 4.5 BUN 19 creatinine 0.99 EKG tracing personally reviewed by me-atrial pacemaker. CT angiogram of the brain: Severe left vertebral artery stenosis at the origin. Severe COPD. Left thyroid gland tumor at 2.[address] brain unremarkable. Assessment plan: -This patient presents with rather acute presentation of dizziness. Feeling his head is floating. Had to hold onto the chandra to move. He feels especially the symptoms, but is moving his head. Not well still. Patient recently had had manipulation done because of a chiropractor. Likely BPPV. Dr. Timmy Dalal -AICD check out to be normal Dee maneuver-was done on the right side. Very successful. Continue daily at home. -COPD in a previous smoker Xopenex 3 times a day -Hyperlipidemia Lipitor 80 mg daily at bedtime -AICD Was checked and is okay -Nonischemic cardiac myopathy, EF not known Toprol-XL 50 mg a day, Aldactone 25 mg daily, Entresto -Primary osteoarthritis Pain control when necessary Disposition: Home Plan - Discharge Summary Discharge Rx Participant: No New Discharge Prescriptions: New Meclizine [Antivert] 25 mg PO TID PRN #30 tab PRN Reason: Vertigo Cyanocobalamin [Vitamin B-12] 1,000 mcg PO DAILY #60 tab Continue Montelukast [Singulair] 10 mg PO HS Spironolactone [Aldactone] 25 mg PO DAILY Levalbuterol Hfa Inhaler [Xopenex Hfa Inhaler] 1 puff INHALATION RT-Q6H PRN PRN Reason: Shortness Of Breath Levalbuterol Nebulized [Xopenex Nebulized] 1.25 mg INHALATION RT-TID predniSONE 5 mg PO DAILY Aspirin EC [Ecotrin Low Dose] 81 mg PO DAILY #90 tab Atorvastatin [Lipitor] 80 mg PO HS Metoprolol Succinate (ER) [Toprol XL] 50 mg PO DAILY@1200 #30 tab Sacubitril/Valsartan [Entresto 24 mg-26 mg Tablet] 1 tab PO BID Mexiletine HCl 200 mg PO Q8H Ezetimibe [Zetia] 10 mg PO DAILY #90 tab Amiodarone [Cordarone] 200 mg PO DAILY Clopidogrel [Plavix] 75 mg PO DAILY Discharge Medication List Montelukast [Singulair] 10 mg PO HS 09/12/15 [History] Spironolactone [Aldactone] 25 mg PO DAILY 09/12/15 [History] Levalbuterol Hfa Inhaler [Xopenex Hfa Inhaler] 1 puff INHALATION RT-Q6H PRN 07/17/17 [History] Levalbuterol Nebulized [Xopenex Nebulized] 1.25 mg INHALATION RT-TID 07/17/17 [History] predniSONE 5 mg PO DAILY 02/12/19 [History] Mexiletine HCl 200 mg PO Q8H 01/30/23 [History] Aspirin EC [Ecotrin Low Dose] 81 mg PO DAILY #90 tab 02/27/23 [Rx] Ezetimibe [Zetia] 10 mg PO DAILY #90 tab 02/27/23 [Rx] Atorvastatin [Lipitor] 80 mg PO HS 03/14/23 [History] Metoprolol Succinate (ER) [Toprol XL] 50 mg PO DAILY@1200 #30 tab 03/18/23 [Rx] Amiodarone [Cordarone] 200 mg PO DAILY 07/12/23 [History] Clopidogrel [Plavix] 75 mg PO DAILY 07/12/23 [History] Sacubitril/Valsartan [Entresto 24 mg-26 mg Tablet] 1 tab PO BID 07/12/23 [History] Cyanocobalamin [Vitamin B-12] 1,000 mcg PO DAILY #60 tab 07/14/23 [Rx] Meclizine [Antivert] 25 mg PO TID PRN #30 tab 07/14/23 [Rx] Follow up Appointment(s)/Referral(s): Timmy Li MD [STAFF PHYSICIAN] - 08/01/23 4:15 pm (Cardiology Appointment will be at the [facility] location) Alex Dominguez MD [Primary Care Provider] - 07/23/23 11:30 am Gee Hemphill MD [STAFF PHYSICIAN] - 1 Week (Neurologist Your primary physician needs to give you a referrel so you can see Dr. Hemphill (that's what Dr. Hemphill's office said when we called to make an appointment for you)) Patient Instructions/Handouts: Meclizine (By mouth), Vitamin B-12 (By mouth), Dizziness (GEN) Activity/Diet/Wound Care/Special Instructions: Dee maneuver daily at home for vertigo Discharge Disposition: HOME SELF-CARE
== END 2023-07-14 14:01 | disposition home or self-care (01) ==
LOC: EC 21:42 → 6NMEDSUR 07-12 04:59
PROVIDERS: ADMIT Hospitalist; ATTEND Hospitalist
DX: R42 Dizziness and giddiness (principal); R11.2 Nausea with vomiting, unspecified; R26.89 Other abnormalities of gait and mobility; E86.1 Hypovolemia; I65.02 Occlusion and stenosis of left vertebral artery; J44.9 Chronic obstructive pulmonary disease, unspecified; E78.5 Hyperlipidemia, unspecified; I11.0 Hypertensive heart disease with heart failure; I50.9 Heart failure, unspecified; I42.8 Other cardiomyopathies; I47.20 Ventricular tachycardia, unspecified; I25.10 Atherosclerotic heart disease of native coronary artery without angina pectoris; E53.8 Deficiency of other specified B group vitamins; M19.91 Primary osteoarthritis, unspecified site; Z86.718 Personal history of other venous thrombosis and embolism; Z87.891 Personal history of nicotine dependence; Z95.810 Presence of automatic (implantable) cardiac defibrillator; Z79.52 Long term (current) use of systemic steroids; Z79.899 Other long term (current) drug therapy; Z79.82 Long term (current) use of aspirin; Z79.02 Long term (current) use of antithrombotics/antiplatelets; Z88.6 Allergy status to analgesic agent; Z88.5 Allergy status to narcotic agent
CPT/HCPCS: 96372 ×2; 99285; 36415; 94640 ×6; 93005; 80053; 80048; 85652; 84443; 82607; 82746; 83735; 84484; 85025 ×2; 86140; 83036; 70496; 70450 ×2; 70498; G0378 ×3; J3420; J1650 ×2; J7512 ×2; Q9967

== ENCOUNTER 2023-10-10 08:08 | Day surgery (SDC) | payer MEDICARE ==
[2023-10-10 08:45] VITALS: TEMP 98.8
--- NOTE | 2023-10-10 08:58 | ED ---
General Adult HPI - General Chief complaint: Skin/Abscess/Foreign Body Stated complaint: object stuck in throat Time Seen by Provider: 10/10/23 08:10 Source: patient, RN notes reviewed, old records reviewed Mode of arrival: wheelchair - History of Present Illness Initial comments: This is a 73-year-old male who presents to the emergency department stating last night before bed he took a pill that was very large and it got stuck in his throat and it was difficult for her to go down. Patient states after that he started having a little blood in saliva and found it very difficult to swallow his saliva. Patient states he woke up this morning took another pill and it happened again and he states he cannot swallow saliva because it is thick and bloody but he is able to keep down water but it is very painful now. Patient denies any difficulty breathing or chest pain. Patient denies any fever or chills. - Related Data Home Medications Medication Instructions Recorded Confirmed Montelukast [Singulair] 10 mg PO HS 09/12/15 10/10/23 Spironolactone [Aldactone] 25 mg PO DAILY 09/12/15 10/10/23 Levalbuterol Hfa Inhaler [Xopenex 1 puff INHALATION RT-Q6H PRN 07/17/17 10/10/23 Hfa Inhaler] Levalbuterol Nebulized [Xopenex 1.25 mg INHALATION RT-TID 07/17/17 10/10/23 Nebulized] predniSONE 5 mg PO DAILY 02/12/19 10/10/23 Mexiletine HCl 200 mg PO Q8H 01/30/23 10/10/23 Atorvastatin [Lipitor] 80 mg PO HS 03/14/23 10/10/23 Amiodarone [Cordarone] 200 mg PO DAILY 07/12/23 10/10/23 Clopidogrel [Plavix] 75 mg PO DAILY 07/12/23 10/10/23 Sacubitril/Valsartan [Entresto 24 1 tab PO BID 07/12/23 10/10/23 mg-26 mg Tablet] Previous Rx's Medication Instructions Recorded Aspirin EC [Ecotrin Low Dose] 81 mg PO DAILY #90 tab 02/27/23 Ezetimibe [Zetia] 10 mg PO DAILY #90 tab 02/27/23 Metoprolol Succinate (ER) [Toprol 50 mg PO DAILY@1200 #30 tab 03/18/23 XL] Allergies Allergy/AdvReac Type Severity Reaction Status Date / Time hydrocodone [From [place]] Allergy Difficulty Verified 10/10/23 09:03 breathing due to asthma ibuprofen Allergy Was told Verified 10/10/23 09:03 not to take while on Brilinta Review of Systems ROS Statement: Those systems with pertinent positive or pertinent negative responses have been documented in the HPI. ROS Other: All systems not noted in ROS Statement are negative. Past Medical History Past Medical History: Asthma, COPD, Hyperlipidemia Additional Past Medical History / Comment(s): VTach, nonischemic cardiomyopathy, CHF, organized left ventricular apical clot, previous DVT ablation, asthma requiring intubation twice, BRAIN BLEED WHILE ON BLOOD THINNER RX 2009, cataracts bilaterally History of Any Multi-Drug Resistant Organisms: None Reported Past Surgical History: AICD, EPS, Pacemaker Additional Past Surgical History / Comment(s): 12/07/15 EPS wtih VT ablation. Other surgical hx: BRAIN SURGERY FOLLOWING BLEED. AICD/PACEMAKER, [facility]. generator change, Defibrilator testing Past Anesthesia/Blood Transfusion Reactions: No Reported Reaction Type of Cardiac Device: Permanent Pacemaker, AICD Device Placement Date:: 2005 implanted with gen change 2012 Past Psychological History: No Psychological Hx Reported Smoking Status: Never smoker Past Alcohol Use History: None Reported Past Drug Use History: None Reported - Past Family History Mother Family Medical History: No Reported History Additional Family Medical History / Comment(s): Mother at age 92 yrs. Father Family Medical History: No Reported History Additional Family Medical History / Comment(s): Father is healthy and 95 yrs old. General Exam - General Exam Comments Initial Comments: GENERAL: Patient is well-developed and well-nourished. Patient is nontoxic and well- hydrated and is in mild distress. ENT: Neck is soft and supple. No significant lymphadenopathy is noted. Oropharynx is clear. Moist mucous membranes. Neck has full range of motion without eliciting any pain. Patient spits up saliva that is blood-tinged. EYES: The sclera were anicteric and conjunctiva were pink and moist. Extraocular movements were intact and pupils were equal round and reactive to light. Eyelids were unremarkable. PULMONARY: Unlabored respirations. Good breath sounds bilaterally. No audible rales rhonchi or wheezing was noted. CARDIOVASCULAR: There is a regular rate and rhythm without any murmurs gallops or rubs. ABDOMEN: Soft and nontender with normal bowel sounds. SKIN: Skin is clear with no lesions or rashes and otherwise unremarkable. NEUROLOGIC: Patient is alert and oriented x3. Cranial nerves II through XII are grossly intact. Motor and sensory are also intact. Normal speech, volume and content. Symmetrical smile. MUSCULOSKELETAL: Normal extremities with adequate strength and full range of motion. LYMPHATICS: No significant lymphadenopathy is noted PSYCHIATRIC: Normal psychiatric evaluation. Course Vital Signs 10/10/23 08:10 Temperature 98.8 F Pulse Rate 67 Respiratory 16 Rate Blood Pressure 130/70 O2 Sat by Pulse 96 Oximetry Medical Decision Making - Medical Decision Making Was pt. sent in by a medical professional or institution ([facility], [facility], urgent care, hospital, or half-way...) When possible be specific @ -No Did you speak to anyone other than the patient for history (EMS, parent, family, police, friend...)? What history was obtained from this source @ -Daughter gave quite a bit of history Did you review nursing and triage notes (agree or disagree)? Why? @ -I reviewed and agree with nursing and triage notes Were old charts reviewed (outside hosp., previous admission, EMS record, old EKG, old radiological studies, urgent care reports/EKG's, half-way records)? Report findings @ -I reviewed old charts and prior lab work on this patient Differential Diagnosis (chest pain, altered mental status, abdominal pain women, abdominal pain men, vaginal bleeding, weakness, fever, dyspnea, syncope, headache, dizziness, GI bleed, back pain, seizure, CVA, palpatations, mental health, musculoskeletal)? @ -Esophageal foreign body, globus hystericus, partial esophageal obstruction this is not an all-inclusive list EKG interpreted by me (3pts min.). @ -As above X-rays interpreted by me (1pt min.). @ -Chest x-ray shows no acute abnormality, soft tissue x-ray of the neck shows no acute abnormality CT interpreted by me (1pt min.). @ -None done U/S interpreted by me (1pt. min.). @ -None done What testing was considered but not performed or refused? (CT, X-rays, U/S, labs)? Why? @ -None What meds were considered but not given or refused? Why? @ -None Did you discuss the management of the patient with other professionals (professionals i.e. DrJuan José, PA, [facility], lab, RT, psych nurse, social contact worker, rodent control worker, teacher, investment officer, insurance case manager)? Give summary @ -I spoke with Dr. Wise to explain to her the patient's complaints and she thought maybe a pill was stuck but not completely blocking the throat so she will take the patient to the endoscopy lab. Was smoking cessation discussed for >3mins.? @ -No Was critical care preformed (if so, how long)? @ -No Were there social determinants of health that impacted care today? How? (Homelessness, low income, unemployed, alcoholism, drug addiction, transportation, low edu. Level, literacy, decrease access to med. care, long-term, rehab)? @ -No Was there de-escalation of care discussed even if they declined (Discuss DNR or withdrawal of care, Hospice)? DNR status @ -No What co-morbidities impacted this encounter? (DM, HTN, Smoking, COPD, CAD, Cancer, CVA, ARF, Chemo, Hep., AIDS, mental health diagnosis, sleep apnea, morbid obesity)? @ -None Was patient admitted / discharged? Hospital course, mention meds given and route, prescriptions, significant lab abnormalities, going to OR and other pertinent info. @ -Patient was discharged from the ER to be sent up to endoscopy to have it endoscopy. Undiagnosed new problem with uncertain prognosis? @ -No Drug Therapy requiring intensive monitoring for toxicity (Heparin, Nitro, Insulin, Cardizem)? @ -No Were any procedures done? @ -No Diagnosis/symptom? @ -Foreign body esophagus Acute, or Chronic, or Acute on Chronic? @ -Acute Uncomplicated (without systemic symptoms) or Complicated (systemic symptoms)? @ -Complicated Side effects of treatment? @ -No Exacerbation, Progression, or Severe Exacerbation? @ -No Poses a threat to life or bodily function? How? (Chest pain, [place], [place], pneumonia, PE, COPD, DKA, ARF, appy, cholecystitis, CVA, Diverticulitis, Homicidal, Suicidal, threat to staff... and all critical care pts) @ -No - Lab Data Result diagrams: 10/10/23 09:55 Lab Results 10/10/23 Range/Units 09:55 WBC 13.5 H (3.8-10.6) k/uL RBC 4.18 L (4.30-5.90) m/uL Hgb 13.1 (13.0-17.5) gm/dL Hct 39.1 (39.0-53.0) % MCV 93.6 (80.0-100.0) fL MCH 31.4 (25.0-35.0) pg MCHC 33.6 (31.0-37.0) g/dL RDW 15.0 (11.5-15.5) % Plt Count 138 L (150-450) k/uL MPV 8.7 Neutrophils % 76 % Lymphocytes % 15 % Monocytes % 6 % Eosinophils % 1 % Basophils % 0 % Neutrophils # 10.2 H (1.3-7.7) k/uL Lymphocytes # 2.0 (1.0-4.8) k/uL Monocytes # 0.8 (0-1.0) k/uL Eosinophils # 0.2 (0-0.7) k/uL Basophils # 0.1 (0-0.2) k/uL Disposition Clinical Impression: Esophageal foreign body Disposition: HOME SELF-CARE Instructions (If sedation given, give patient instructions): Esophageal Foreign Body (ED) Is patient prescribed a controlled substance at d/c from ED?: No Referrals: Alex Dominguez MD [Primary Care Provider] - 1-2 days Time of Disposition: 10:22
[2023-10-10] MEDS: LIDOCAINE VISCOUS 2% 15 ML CUP PO ONE (09:14)
[2023-10-10 10:15] LABS: Basophils # (A) 0.1 k/uL (0-0.2); Basophils % (A) 0 %; Eosinophils # (A) 0.2 k/uL (0-0.7); Eosinophils % (A) 1 %; HCT 39.1 % (39.0-53.0); HGB 13.1 gm/dL (13.0-17.5); Lymphocytes % (A) 15 %; MCH 31.4 pg (25.0-35.0); MCHC 33.6 g/dL (31.0-37.0); MCV 93.6 fL (80.0-100.0); Mean Platelet Volume 8.7; Monocytes # (A) 0.8 k/uL (0-1.0); Monocytes % (A) 6 %; Neutrophils # (A) 10.2 k/uL (1.3-7.7); Neutrophils % (A) 76 %; Platelet Count 138 k/uL (150-450); RBC 4.18 m/uL (4.30-5.90); WBC 13.5 k/uL (3.8-10.6)
[2023-10-10 10:25] LABS: Partial Thromboplastin Time 22.6 sec (22.0-30.0); Prothrombin Time 10.6 sec (10.0-12.5)
[2023-10-10 10:43] LABS: ALT 42 U/L (4-49); AST 34 U/L (17-59); African American GFR (CKD) >90 (>60 ml/min/1.73 sqM); Albumin 3.2 g/dL (3.5-5.0); Alkaline Phosphatase 61 U/L (38-126); Anion Gap 1 mmol/L; Blood Urea Nitrogen 20 mg/dL (9-20); Calcium 8.5 mg/dL (8.4-10.2); Carbon Dioxide 28 mmol/L (22-30); Chloride 109 mmol/L (98-107); Glucose 86 mg/dL (74-99); Non-African American GFR(CKD) 87 (>60 ml/min/1.73 sqM); Potassium 4.2 mmol/L (3.5-5.1); Sodium 138 mmol/L (137-145); Total Bilirubin 0.8 mg/dL (0.2-1.3); Total Protein 5.4 g/dL (6.3-8.2)
--- NOTE | 2023-10-10 10:49 | XR ---
EXAMINATION TYPE: XR chest 2V DATE OF EXAM: 10/10/2023 10:39 AM CLINICAL INDICATION:Male, 73 years old with history of Difficulty breathing ; COMPARISON: Chest radiographs from 05/24/2023. TECHNIQUE: XR chest 2V Frontal and lateral views of the chest. FINDINGS: Lungs/Pleura: There is flattening of the diaphragm with increased lucency of the lungs. No evidence o f pneumothorax, pleural effusion or focal consolidation. Pulmonary vascularity: Unremarkable. Heart/mediastinum: Cardiomediastinal silhouette is enlarged and stable. Atherosclerotic calcificatio ns are seen in the aorta. Two lead cardiac conduction device overlying the left hemithorax with lead tips projecting over the right ventricle and right atrium. Musculoskeletal: No acute osseous pathology. Other findings: None IMPRESSION: 1. No acute cardiopulmonary disease process. 2. COPD changes.
[2023-10-10] MEDS: SODIUM CHLORIDE 0.9% 500 ML 500 ML IV ONE ×2 (10:53→11:04)
[2023-10-10] MEDS ORDERED: LIDOCAINE 1% INJ 10MG/ML (20 ML MDV) ONE (10:53)
[2023-10-10] MEDS ORDERED: PROPOFOL 10 MG/ML 20 ML VIAL IV ONE (10:53)
--- NOTE | 2023-10-10 10:56 | XR ---
EXAMINATION TYPE: XR soft tissue neck DATE OF EXAM: 10/10/2023 COMPARISON: None HISTORY: 73-year-old male pill stuck in throat, foreign body TECHNIQUE: AP and lateral views FINDINGS: Accentuated cervical lordosis. No prevertebral soft tissue swelling. Normal epiglottis. Nasopharynx a nd oropharynx appear patent. Unable to clearly identify any retained radiopaque foreign body. Cartila ge calcifications relating to the thyroid and cricoid cartilages. Limited assessment of the subglotti c airway on the frontal view. IMPRESSION: 1. Suboptimal assessment of the subglottic airway on the frontal view. Unable to assess for any poten tial abnormal narrowing here. 2. The nasopharyngeal and oropharyngeal airways appear patent. 3. Unable to identify any convincing retained radiopaque foreign body.
--- NOTE | 2023-10-10 11:06 | P.PCN ---
Date of Procedure: 10/10/23 Procedure(s) Performed: BRIEF HISTORY: Patient is a 73-year-old, pleasant, white male male in the emergency room this morning with acute dysphagia after swallowing an antibiotic last night. He could not swallow any saliva. He came in the morning to the ER and was complaining of some odynophagia and could not swallow any liquids or solids. Never had dysphagia in the past. No history of GERD. He scheduled for an upper endoscopy on an emergency basis.. PROCEDURE PERFORMED: Esophagogastroduodenoscopy. PREOPERATIVE DIAGNOSIS: Acute dysphagia. IV sedation per anesthesia. PROCEDURE: After informed consent was obtained, the patient was brought into the endoscopy unit. IV sedation was administered by Anesthesia under continuous monitoring. Initially the Olympus GIF-140 video endoscope was inserted into the mouth. Esophagus intubated without any difficulty. It was gradually advanced into the stomach and duodenum and carefully examined. The bulb and the second part of the duodenum appeared normal. The scope at this time was withdrawn to the stomach, adequately insufflated with air, and upon careful examination, mucosa of the antrum, body, cardia and the fundus appeared normal. The scope was then withdrawn into the esophagus. The GE junction was located at 39 cm from the incisors. A hiatal hernia noted. The esophagus appeared normal. There were no erosions or ulcerations seen. The proximal cervical esophagus was carefully examined and 20 cm from the incisors there was mild mucosal erythema identified with some discoloration of the mucosa suspicious for pill-induced esophagitis but no foreign body noted in the esophagus. The patient tolerated the procedure well. IMPRESSION: 1. Mucosal irritation in the proximal cervical esophagus suspicious for pill- induced esophagitis . 2. No foreign body noted in the esophagus. 3. Hiatal hernia. RECOMMENDATIONS: The findings of this examination were discussed with the patient well as his family. He was advised to be on a soft diet. Discharge home after recovery..
[2023-10-10 12:31] VITALS: RESP 20
--- NOTE | 2023-10-10 13:13 | CONS ---
CONSULTATION REQUESTING PHYSICIAN: Dr. Alex Dominguez. REASON FOR CONSULTATION: Acute pill-induced dysphagia. HISTORY OF PRESENT ILLNESS: The patient is a 73-year-old pleasant white male with history of hypertension, atrial fibrillation, coronary artery disease and hypercholesterolemia, admitted to the emergency room after he swallowed an antibiotic last night and could not swallow any further. He felt that it got lodged in his throat area and has been having severe dysphagia and odynophagia. He tried to drink some water and could not tolerate it. Came to the emergency room this morning. He was given a glass of water, he was able to swallow the water, but however he continues to spit saliva with small amount of blood and hence scheduled for an upper endoscopy and hence scheduled him for an EGD. PAST MEDICAL HISTORY: Hypertension, hypercholesterolemia, cardiac arrhythmia, COPD. MEDICATIONS AT HOME: 1. Lipitor. 2. . 3. Plavix. 4. Entresto. 5. Aldactone. 6. Singulair. 7. Lovenox. ALLERGIES: To hydrocodone. SOCIAL HISTORY: No smoking, no alcohol use. FAMILY HISTORY: Unremarkable. PAST SURGICAL HISTORY: VT ablation and pacemaker implantation. REVIEW OF SYSTEMS: CARDIOPULMONARY: No chest pain or shortness of breath. GENITOURINARY: No dysuria or hematuria. MUSCULOSKELETAL: Unremarkable. SKIN: Unremarkable. ENDOCRINE: Unremarkable. PSYCHIATRIC: Unremarkable. NEUROLOGY: Unremarkable. ENT/VISION: Unremarkable. CONSTITUTIONAL: No recent weight loss. No fever, chills, or night sweats. PHYSICAL EXAMINATION: GENERAL: He appears comfortable, no apparent distress. VITAL SIGNS: Stable. Blood pressure is 133/86, pulse rate 82 per minute and afebrile. HEENT: Unremarkable. Conjunctivae pink. Sclerae anicteric. Oral cavity, no lesions. NECK: No JVD or lymph node enlargement. CHEST: Clear to auscultation. HEART: Regular rate and rhythm. ABDOMEN: Soft, bowel sounds are positive. No organomegaly. EXTREMITIES: No pedal edema. SKIN: No rashes. NEUROLOGIC: He is alert and oriented x3. No focal deficits. LABS: WBC 13.5, hemoglobin 13, platelets normal. Basic metabolic panel is within normal limits. IMPRESSION: 1. Acute pill-induced dysphagia. 2. History of cardiac arrhythmia. 3. History of hypertension and hypercholesterolemia. RECOMMENDATIONS: We will proceed with EGD on an emergency basis for foreign body removal. Discussed with the patient risks, benefits, and complications and he is agreeable to it. Thank you for this consultation. MMODL / IJN: [id number] /
[2023-10-10] MEDS: LACTATED RINGERS 1,000 ML IV SCH (14:04)
[2023-10-10 15:07] VITALS: BP 135/77; PULSE 73
== END 2023-10-10 15:00 | disposition home or self-care (01) ==
LOC: ORWHC2ENDO 08:08
PROVIDERS: ATTEND Internal Medicine Gastroenterology
DX: K44.9 Diaphragmatic hernia without obstruction or gangrene (principal); J44.89 Other specified chronic obstructive pulmonary disease; I11.0 Hypertensive heart disease with heart failure; I50.9 Heart failure, unspecified; I25.10 Atherosclerotic heart disease of native coronary artery without angina pectoris; E78.00 Pure hypercholesterolemia, unspecified; Z79.02 Long term (current) use of antithrombotics/antiplatelets; Z79.52 Long term (current) use of systemic steroids; Z86.718 Personal history of other venous thrombosis and embolism; Z86.73 Personal history of transient ischemic attack (TIA), and cerebral infarction without residual deficits; Z88.5 Allergy status to narcotic agent; Z95.810 Presence of automatic (implantable) cardiac defibrillator; Z79.899 Other long term (current) drug therapy
CPT/HCPCS: 80053; 85025; 85610; 85730; 70360; 71046; 43235; J2001; J2704

== ENCOUNTER 2023-10-10 14:56 | Inpatient (IN) | payer MEDICARE ==
--- NOTE | 2023-10-10 15:03 | ED ---
Recheck HPI - General Source: patient, RN notes reviewed Mode of arrival: ambulatory Limitations: no limitations <Farzana Lopez - Last Filed: 10/10/23 15:01> - General Source: RN notes reviewed, old records reviewed Mode of arrival: ambulatory Limitations: no limitations - History of Present Illness MD Complaint: other (Significant cough and congestion) -: days(s) Returns Today for: persistent/worsening pain related to initial visit Symptoms Since Prior Visit: worsening pain Associated Symptoms: chills, chest pain, shortness of breath, nausea Treatments Prior to Arrival: IV/IO <Cali Pugh - Last Filed: 10/19/23 18:53> - General Chief Complaint: Recheck/Abnormal Lab/Rx Stated Complaint: post op comp Time Seen by Provider: 10/10/23 15:02 - History of Present Illness Initial Comments: This is a 73 year old male who presents to the emergency department for a recheck. Patient was here this morning for concerns of getting a pill stuck in his throat. He had an EGD with Dr. Nassar, however he was still coughing stuff up afterwards, so his daughter brought him here wanting to have him reevaluated. (Farzana Lopez) This is a 73-year-old male brought in for recheck of a pill stuck in his throat, diagnosed with esophagitis had EGD with Dr. Wise and still having severe cough and difficulty to clear secretions, patient is a poor historian history obtained by family at bedside (Cali Pugh) - Related Data Home Medications Medication Instructions Recorded Confirmed Montelukast [Singulair] 10 mg PO HS 09/12/15 10/10/23 Spironolactone [Aldactone] 25 mg PO DAILY 09/12/15 10/10/23 Levalbuterol Hfa Inhaler [Xopenex 1 puff INHALATION RT-Q6H PRN 07/17/17 10/10/23 Hfa Inhaler] Levalbuterol Nebulized [Xopenex 1.25 mg INHALATION RT-TID 07/17/17 10/10/23 Nebulized] predniSONE 5 mg PO DAILY 02/12/19 10/10/23 Mexiletine HCl 200 mg PO Q8H 01/30/23 10/10/23 Atorvastatin [Lipitor] 80 mg PO HS 07/21/23 02/16/24 Amiodarone [Cordarone] 200 mg PO DAILY 07/12/23 10/10/23 Clopidogrel [Plavix] 75 mg PO DAILY 07/12/23 10/10/23 Sacubitril/Valsartan [Entresto 24 1 tab PO BID 07/12/23 10/10/23 mg-26 mg Tablet] Previous Rx's Medication Instructions Recorded Aspirin EC [Ecotrin Low Dose] 81 mg PO DAILY #90 tab 02/27/23 Ezetimibe [Zetia] 10 mg PO DAILY #90 tab 02/27/23 Metoprolol Succinate (ER) [Toprol 50 mg PO DAILY@1200 #30 tab 03/18/23 XL] Allergies Allergy/AdvReac Type Severity Reaction Status Date / Time hydrocodone [From [employer]] Allergy Difficulty Verified 10/10/23 22:09 breathing due to asthma ibuprofen Allergy Was told Verified 10/10/23 22:09 not to take while on Brilinta albuterol AdvReac Rapid Verified 10/10/23 22:09 Heart Rate Review of Systems ROS Other: All systems not noted in ROS Statement are negative. <Farzana Lopez - Last Filed: 10/10/23 15:01> ROS Other: All systems not noted in ROS Statement are negative. <Cali Pugh - Last Filed: 10/19/23 18:53> ROS Statement: Those systems with pertinent positive or pertinent negative responses have been documented in the HPI. Past Medical History Past Medical History: Asthma, COPD, Hyperlipidemia Additional Past Medical History / Comment(s): VTach, nonischemic cardiomyopathy, CHF, organized left ventricular apical clot, previous DVT ablation, asthma requiring intubation twice, BRAIN BLEED WHILE ON BLOOD THINNER RX 2009, cataracts bilaterally History of Any Multi-Drug Resistant Organisms: None Reported Past Surgical History: AICD, EPS, Pacemaker Additional Past Surgical History / Comment(s): 12/07/15 EPS [facility] VT ablation. Other surgical hx: BRAIN SURGERY FOLLOWING BLEED. AICD/PACEMAKER, [facility]. generator change, Defibrilator testing Past Anesthesia/Blood Transfusion Reactions: No Reported Reaction Type of Cardiac Device: Permanent Pacemaker, AICD Device Placement Date:: 2005 implanted with gen change 2012 Past Psychological History: No Psychological Hx Reported Smoking Status: Never smoker Past Alcohol Use History: None Reported Past Drug Use History: None Reported - Past Family History Mother Family Medical History: No Reported History Additional Family Medical History / Comment(s): Mother at age 92 yrs. Father Family Medical History: No Reported History Additional Family Medical History / Comment(s): Father is healthy and 95 yrs old. <Farzana Lopez - Last Filed: 10/10/23 15:01> General Exam <Farzana Lopez - Last Filed: 10/10/23 15:01> General appearance: alert, in no apparent distress, anxious Head exam: Present: atraumatic, normocephalic, normal inspection Eye exam: Present: normal appearance, PERRL, EOMI. Absent: scleral icterus, conjunctival injection, periorbital swelling ENT exam: Present: normal exam, mucous membranes moist Neck exam: Present: normal inspection. Absent: tenderness, meningismus, lymphadenopathy Respiratory exam: Present: normal lung sounds bilaterally. Absent: respiratory distress, wheezes, rales, rhonchi, stridor Cardiovascular Exam: Present: regular rate, normal rhythm, normal heart sounds. Absent: systolic murmur, diastolic murmur, rubs, gallop, clicks GI/Abdominal exam: Present: soft, normal bowel sounds. Absent: distended, tenderness, guarding, rebound, rigid Extremities exam: Present: normal inspection, full ROM, normal capillary refill. Absent: tenderness, pedal edema, joint swelling, calf tenderness Back exam: Present: normal inspection Neurological exam: Present: alert, oriented X3, CN II-XII intact Psychiatric exam: Present: normal affect, normal mood Skin exam: Present: warm, dry, intact, normal color. Absent: rash <Cali Pugh - Last Filed: 10/19/23 18:53> - General Exam Comments Initial Comments: Visual Physical Exam Vital signs reviewed General: Well-appearing, nontoxic, no acute distress. Head: Normocephalic, atraumatic Eyes: PERRLA, EOMI ENT: Airway patent Chest: Nonlabored breathing Skin: No visual rash, normal skin tone Neuro: Alert and oriented 3 Musculoskeletal: No gross abnormalities (Farzana Lopez) Course <Cali Pugh - Last Filed: 10/19/23 18:53> Vital Signs 10/10/23 10/10/23 10/10/23 19:42 21:48 21:58 Pulse Rate 74 81 80 Respiratory 18 Rate Blood Pressure 148/85 O2 Sat by Pulse 94 L Oximetry 10/10/23 22:30 Pulse Rate 79 Respiratory 20 Rate Blood Pressure 131/64 O2 Sat by Pulse 95 Oximetry - Reevaluation(s) Reevaluation #1: 10/10/23 21:42 Medical record is reviewed (Cali Pugh) Reevaluation #2: 10/10/23 21:42 Patient symptoms unchanged (Cali Pugh) Reevaluation #3: 10/10/23 21:42 Informed of results and questions answered (Cali Pugh) Reevaluation #4: Was pt. sent in by a medical professional or institution (TAMAR Jay, TALENT DEVELOPMENT ANALYST, urgent care, hospital, or fci...) When possible be specific @ -no Did you speak to anyone other than the patient for history (EMS, parent, family, police, friend...)? What history was obtained from this source @ -no Did you review nursing and triage notes (agree or disagree)? Why? @ -agree Are old charts reviewed (outside hosp., previous admission, EMS record, old EKG, old radiological studies, urgent care reports/EKG's, fci records)? Report findings @ -yes Differential Diagnosis (chest pain, altered mental status, abdominal pain women, abdominal pain men, vaginal bleeding, weakness, fever, dyspnea, syncope, headache, dizziness, GI bleed, back pain, seizure, CVA, palpatations, mental health, musculoskeletal)? @ -prior EKG interpreted by me (3pts min.). @ -yes X-rays interpreted by me (1pt min.). @ -no CT interpreted by me (1pt min.). @ -Yes negative for acute disease U/S interpreted by me (1pt. min.). @ -no What testing was considered but not performed or refused? (CT, X-rays, U/S, labs)? Why? @ -none What meds were considered but not given or refused? Why? @ -none Did you discuss the management of the patient with other professionals (professionals i.e. Dr., PA, TALENT DEVELOPMENT ANALYST, lab, RT, psych nurse, geriatric social work professor, electric distribution checker, teacher, inshore undersea warfare officer, case monitor)? Give summary @ -no Was smoking cessation discussed for >3mins.? @ -no Was critical care preformed (if so, how long)? @ -no Were there social determinants of health that impacted care today? How? (Homelessness, low income, unemployed, alcoholism, drug addiction, rueda sportation, low edu. Level, literacy, decrease access to med. care, [facility], rehab)? @ -none Was there de-escalation of care discussed even if they declined (Discuss DNR or withdrawal of care, Hospice)? DNR status @ -no What co-morbidities impacted this encounter? (DM, HTN, Smoking, COPD, CAD, Cancer, CVA, ARF, Chemo, Hep., AIDS, mental health diagnosis, sleep apnea, morbid obesity)? @ -none Was patient admitted / discharged? Hospital course, mention meds given and route, prescriptions, significant lab abnormalities, going to OR and other pertinent info. @ - 73 male will be admitted for further evaluation and monitoring of breathing breathing treatments as needed for chronic COPD and sputum secretions Admitted Undiagnosed new problem with uncertain prognosis? @ -no Drug Therapy requiring intensive monitoring for toxicity (Heparin, Nitro, Insulin, Cardizem)? @ -no Were any procedures done? @ -no Diagnosis/symptom? @ -Cough congestion sputum production Acute, or Chronic, or Acute on Chronic? @ -Acute Uncomplicated (without systemic symptoms) or Complicated (systemic symptoms)? @ -Complicated Side effects of treatment? @ -no Exacerbation, Progression, or Severe Exacerbation? @ -exacerbation Poses a threat to life or bodily function? How? (Chest pain, USA, [place], pneumonia, PE, COPD, DKA, ARF, appy, cholecystitis, CVA, Diverticulitis, Homicidal, Suicidal, threat to staff... and all critical care pts) @ -yes with significant extremes of age (Cali Pugh) Reevaluation #5: Differential Dyspnea: Coronary syndrome, arrhythmia, tamponade, asthma, COPD, pulmonary embolism, pneumonia, pneumothorax, pulmonary effusion, anaphylaxis, diabetic ketoacidosis, flailed chest, pulmonary contusion, diaphragmatic rupture, anemia, neuromus cular, this is not meant to be an all-inclusive list. (Cali Pugh) - Consultations Consultation #1: Spoke with [facility] who agrees to admit this patient (Cali Pugh) Medical Decision Making <Farzana Lopez - Last Filed: 10/10/23 15:01> - Lab Data Result diagrams: 10/15/23 15:42 10/19/23 05:53 - Radiology Data Radiology results: report reviewed (CT brain, CTa negative for acute disase), image reviewed <Cali Pugh - Last Filed: 10/19/23 18:53> - Medical Decision Making I performed the QuickNote portion of this chart. Signed Farzana Lopez PA-C. (Farzana Lopez) 73 male will be admitted for further evaluation and monitoring of breathing breathing treatments as needed for chronic COPD and sputum secretions (Cali Pugh) - Lab Data Lab Results 10/10/23 10/10/23 10/10/23 Range/Units 19:06 19:06 19:06 WBC 16.0 H (3.8-10.6) k/uL RBC 4.48 (4.30-5.90) m/uL Hgb 13.9 (13.0-17.5) gm/dL Hct 42.4 (39.0-53.0) % MCV 94.6 (80.0-100.0) fL MCH 31.0 (25.0-35.0) pg MCHC 32.8 (31.0-37.0) g/dL RDW 14.8 (11.5-15.5) % Plt Count 137 L (150-450) k/uL MPV 8.1 Immature Gran % (Auto) % Absolute Nucleated RBC % Neutrophils % 82 % Lymphocytes % 12 % Monocytes % 5 % Eosinophils % 1 % Basophils % 0 % Immature Gran # (0.00-0.04) X 10*3/uL Neutrophils # 13.1 H (1.3-7.7) k/uL Lymphocytes # 1.9 (1.0-4.8) k/uL Monocytes # 0.7 (0-1.0) k/uL Eosinophils # 0.1 (0-0.7) k/uL Basophils # 0.1 (0-0.2) k/uL NRBC/100 WBC Diff (0.00-0.01) X 10*3/uL PT 10.4 (10.0-12.5) sec INR 0.9 (<1.2) APTT 21.6 L (22.0-30.0) sec Sodium 136 L (137-145) mmol/L Potassium 4.2 (3.5-5.1) mmol/L Chloride 106 (98-107) mmol/L Carbon Dioxide 25 (22-30) mmol/L Anion Gap 5 mmol/L BUN 15 (9-20) mg/dL Creatinine 0.79 (0.66-1.25) mg/dL Est GFR (CKD-EPI) (>=60) Est GFR (CKD-EPI)AfAm >90 (>60 ml/min/1.73 sqM) Est GFR (CKD-EPI)NonAf 89 (>60 ml/min/1.73 sqM) BUN/Creatinine Ratio (12.00-20.00) Ratio Glucose 91 (74-99) mg/dL Plasma Lactic Acid Melvin (0.7-2.0) mmol/L Calcium 8.8 (8.4-10.2) mg/dL Phosphorus 3.3 (2.5-4.5) mg/dL Magnesium 2.0 (1.6-2.3) mg/dL Total Bilirubin 0.8 (0.2-1.3) mg/dL AST 33 (17-59) U/L ALT 41 (4-49) U/L Alkaline Phosphatase 66 (38-126) U/L Total Protein 5.8 L (6.3-8.2) g/dL Albumin 3.7 (3.5-5.0) g/dL Globulin (1.6-3.3) g/dL Albumin/Globulin Ratio (1.60-3.17) Ratio 10/10/23 10/11/23 10/11/23 Range/Units 19:06 06:44 06:44 WBC 17.3 H (3.8-10.6) k/uL RBC 4.42 (4.30-5.90) m/uL Hgb 13.8 (13.0-17.5) gm/dL Hct 42.3 (39.0-53.0) % MCV 95.7 (80.0-100.0) fL MCH 31.3 (25.0-35.0) pg MCHC 32.7 (31.0-37.0) g/dL RDW 14.8 (11.5-15.5) % Plt Count 139 L (150-450) k/uL MPV 7.8 Immature Gran % (Auto) % Absolute Nucleated RBC % Neutrophils % 84 % Lymphocytes % 15 % Monocytes % 1 % Eosinophils % 0 % Basophils % 0 % Immature Gran # (0.00-0.04) X 10*3/uL Neutrophils # 14.5 H (1.3-7.7) k/uL Lymphocytes # 2.5 (1.0-4.8) k/uL Monocytes # 0.2 (0-1.0) k/uL Eosinophils # 0.0 (0-0.7) k/uL Basophils # 0.0 (0-0.2) k/uL NRBC/100 WBC Diff (0.00-0.01) X 10*3/uL PT (10.0-12.5) sec INR (<1.2) APTT (22.0-30.0) sec Sodium 137 (137-145) mmol/L Potassium 4.5 (3.5-5.1) mmol/L Chloride 107 (98-107) mmol/L Carbon Dioxide 20 L (22-30) mmol/L Anion Gap 10 mmol/L BUN 15 (9-20) mg/dL Creatinine 0.76 (0.66-1.25) mg/dL Est GFR (CKD-EPI) (>=60) Est GFR (CKD-EPI)AfAm >90 (>60 ml/min/1.73 sqM) Est GFR (CKD-EPI)NonAf >90 (>60 ml/min/1.73 sqM) BUN/Creatinine Ratio (12.00-20.00) Ratio Glucose 173 H (74-99) mg/dL Plasma Lactic Acid Melvin 1.3 (0.7-2.0) mmol/L Calcium 8.7 (8.4-10.2) mg/dL Phosphorus 4.3 (2.5-4.5) mg/dL Magnesium 2.0 (1.6-2.3) mg/dL Total Bilirubin (0.2-1.3) mg/dL AST (17-59) U/L ALT (4-49) U/L Alkaline Phosphatase (38-126) U/L Total Protein (6.3-8.2) g/dL Albumin (3.5-5.0) g/dL Globulin (1.6-3.3) g/dL Albumin/Globulin Ratio (1.60-3.17) Ratio 10/13/23 10/13/23 Range/Units 06:27 06:27 WBC 16.21 H (3.8-10.6) k/uL RBC 3.80 L (4.30-5.90) m/uL Hgb 11.7 L (13.0-17.5) gm/dL Hct 35.8 L (39.0-53.0) % MCV 94.2 (80.0-100.0) fL MCH 30.8 (25.0-35.0) pg MCHC 32.7 (31.0-37.0) g/dL RDW 15.9 H (11.5-15.5) % Plt Count 135 L (150-450) k/uL MPV 10.9 Immature Gran % (Auto) 0.40 % Absolute Nucleated RBC 0 % Neutrophils % 82.8 % Lymphocytes % 13.9 % Monocytes % 2.6 % Eosinophils % 0.2 % Basophils % 0.1 % Immature Gran # 0.07 H (0.00-0.04) X 10*3/uL Neutrophils # 13.41 H (1.3-7.7) k/uL Lymphocytes # 2.25 (1.0-4.8) k/uL Monocytes # 0.42 (0-1.0) k/uL Eosinophils # 0.04 (0-0.7) k/uL Basophils # 0.02 (0-0.2) k/uL NRBC/100 WBC Diff 0 (0.00-0.01) X 10*3/uL PT (10.0-12.5) sec INR (<1.2) APTT (22.0-30.0) sec Sodium 144 (137-145) mmol/L Potassium 4.0 (3.5-5.1) mmol/L Chloride 110 H (98-107) mmol/L Carbon Dioxide 25.1 (22-30) mmol/L Anion Gap 8.90 mmol/L BUN 19.6 (9-20) mg/dL Creatinine 0.7 (0.66-1.25) mg/dL Est GFR (CKD-EPI) 97 (>=60) Est GFR (CKD-EPI)AfAm (>60 ml/min/1.73 sqM) Est GFR (CKD-EPI)NonAf (>60 ml/min/1.73 sqM) BUN/Creatinine Ratio 28.00 H (12.00-20.00) Ratio Glucose 150 H (74-99) mg/dL Plasma Lactic Acid Melvin (0.7-2.0) mmol/L Calcium 8.7 (8.4-10.2) mg/dL Phosphorus (2.5-4.5) mg/dL Magnesium (1.6-2.3) mg/dL Total Bilirubin 0.5 (0.2-1.3) mg/dL AST 29 (17-59) U/L ALT 32 (4-49) U/L Alkaline Phosphatase 46 (38-126) U/L Total Protein 4.7 L (6.3-8.2) g/dL Albumin 3.2 L (3.5-5.0) g/dL Globulin 1.5 L (1.6-3.3) g/dL Albumin/Globulin Ratio 2.13 (1.60-3.17) Ratio Disposition <Farzana Lopez - Last Filed: 10/10/23 15:01> Is patient prescribed a controlled substance at d/c from ED?: No Time of Disposition: 20:30 <Cali Pugh - Last Filed: 10/19/23 18:53> Clinical Impression: Dizziness, Dyspnea, COPD (chronic obstructive pulmonary disease), Pill esophagitis Disposition: ADMITTED IP TO THIS HOSP Condition: Fair
--- NOTE | 2023-10-10 16:51 | CT ---
EXAMINATION TYPE: CT brain wo con CT DLP: 1195.6 mGycm, Automated exposure control for dose reduction was used. DATE OF EXAM: 10/10/2023 4:39 PM COMPARISON: 07/13/2023. CLINICAL INDICATION:Male, 73 years old with history of ams, difficulty swallowing after procedure to remove pills from throat this am TECHNIQUE: Brain: Axial CT images of the brain were obtained with coronal and sagittal reformats created and rev iewed. Contrast used: None. Oral contrast used: None. FINDINGS: Brain: Extra-axial spaces: No abnormal extra-axial fluid collections. Ventricular system: Dilatation in proportion to cerebral atrophy. Cerebral parenchyma: Remote left frontal lobe injury with encephalization. Cerebral atrophy. No acute intraparenchymal hemorrhage or mass effect. The contreras-white junction is well differentiated. Scatter ed hypoattenuating areas are seen within the white matter. Cerebellum: Unremarkable. Mass effect: No evidence of midline shift. Intracranial vasculature: Atherosclerotic calcifications of the intracranial vessels. Soft tissues: Normal. Calvarium/osseous structures: No depressed skull fracture. Postsurgical changes of the skull. Paranasal sinuses and mastoid air cells: Mild scattered paranasal sinus disease. Layering secretions are seen bilaterally. Visualized orbits: Orbital contents are intact. IMPRESSION: 1. No acute intracranial process. 2. Remote left frontal lobe injury. 3. Nonspecific white matter changes, likely secondary to chronic small vessel ischemic disease.
--- NOTE | 2023-10-10 17:06 | CT ---
EXAMINATION TYPE: CT angio head neck CT DLP: 450.9 mGycm, Automated exposure control for dose reduction was used. DATE OF EXAM: 10/10/2023 4:44 PM COMPARISON: CT head same day. CLINICAL INDICATION:Male, 73 years old with history of ams; PHH, difficulty swallowing after procedur e to remove pills from throat this am TECHNIQUE: Axially acquired helical CT angiogram of the head and neck was obtained with contrast. Axi al images are supplemented with 3D reconstructions and MIP images which were post-processed at an in dependent workstation. NASCET criteria used. Contrast used:65ml mL of Isovue 300 with IV Contrast, Oral contrast used: None. FINDINGS: CTA HEAD: No evidence of acute intracranial hemorrhage, mass effect, or midline shift. The ventricles, sulci, a nd cisterns are unremarkable. Bilaterally aphakia. The visualized portions of the internal carotid arteries, middle cerebral arteries, anterior cerebral arteries, and posterior cerebral arteries are patent. Atherosclerosis of the carotid siphons. The basilar and vertebral arteries are patent. CTA NECK: Right Carotid System: The common carotid artery and external carotid artery are patent. The carotid bifurcation demonstrate s no evidence of hemodynamically significant stenosis. The remaining portions of the internal carotid artery demonstrate normal size without significant narrowing. Left Carotid System: The common carotid artery and external carotid artery are patent. The carotid bifurcation demonstrate s no evidence of hemodynamically significant stenosis. The remaining portions of the internal carotid artery demonstrate normal size without significant narrowing. Vertebral arteries are patent without evidence hemodynamically significant stenosis. There is a three-vessel aortic arch. The origins of the great vessels are patent. No evidence of hemo dynamically significant stenosis. Left thyroid gland 2.9 cm nodule. Mild to moderate centrilobular emphysema changes. The esophagus is poorly visualized and appear to the level of the pharynx particularly becomes difficult to follow the esophagus. No evidence for perforation. IMPRESSION: 1. Poor delineation of the esophagus at the level of the larynx. No evidence for free air. No organi zing fluid outside the lumen. 2. No evidence of dissection of the cervical internal carotid arteries or vertebral arteries or any evidence of significant stenosis at the carotid bifurcations. 3. No evidence of intracranial high-grade stenosis or intracranial aneurysm.
[2023-10-10 19:23] LABS: Basophils # (A) 0.1 k/uL (0-0.2); Basophils % (A) 0 %; Eosinophils # (A) 0.1 k/uL (0-0.7); Eosinophils % (A) 1 %; HCT 42.4 % (39.0-53.0); HGB 13.9 gm/dL (13.0-17.5); Lymphocytes # (A) 1.9 k/uL (1.0-4.8); Lymphocytes % (A) 12 %; MCHC 32.8 g/dL (31.0-37.0); MCV 94.6 fL (80.0-100.0); Mean Platelet Volume 8.1; Monocytes # (A) 0.7 k/uL (0-1.0); Monocytes % (A) 5 %; Neutrophils # (A) 13.1 k/uL (1.3-7.7); Neutrophils % (A) 82 %; Platelet Count 137 k/uL (150-450); RBC 4.48 m/uL (4.30-5.90); RDW 14.8 % (11.5-15.5)
[2023-10-10 19:35] LABS: ALT 41 U/L (4-49); AST 33 U/L (17-59); African American GFR (CKD) >90 (>60 ml/min/1.73 sqM); Albumin 3.7 g/dL (3.5-5.0); Alkaline Phosphatase 66 U/L (38-126); Anion Gap 5 mmol/L; Blood Urea Nitrogen 15 mg/dL (9-20); Calcium 8.8 mg/dL (8.4-10.2); Carbon Dioxide 25 mmol/L (22-30); Chloride 106 mmol/L (98-107); Glucose 91 mg/dL (74-99); Non-African American GFR(CKD) 89 (>60 ml/min/1.73 sqM); Phosphorus 3.3 mg/dL (2.5-4.5); Potassium 4.2 mmol/L (3.5-5.1); Sodium 136 mmol/L (137-145); Total Bilirubin 0.8 mg/dL (0.2-1.3); Total Protein 5.8 g/dL (6.3-8.2)
[2023-10-10] MEDS: SODIUM CHLORIDE 0.9% 1,000 ML IV STA ×2 (19:41)
[2023-10-10 19:48] LABS: INR 0.9 (<1.2); Prothrombin Time 10.4 sec (10.0-12.5)
[2023-10-10 19:50] LABS: Partial Thromboplastin Time 21.6 sec (22.0-30.0)
[2023-10-10] MEDS ORDERED: ONDANSETRON 4 MG/2 ML VIAL IVP PRN (20:33)
[2023-10-10] MEDS ORDERED: NALOXONE 0.4 MG/ML 1 ML VIAL IVP PRN ×2 (20:33)
[2023-10-10] MEDS ORDERED: ALBUTEROL NEBULIZED 2.5 MG/3 ML INHALATION PRN (20:33)
[2023-10-10] MEDS: methylPREDNISolone SOD SUCCI 125 MG/2 ML VIAL IV STA (21:44)
[2023-10-10] MEDS: SODIUM CHLORIDE 0.45% 1,000 ML IV SCH (21:49)
[2023-10-10] MEDS: IPRATROPIUM-ALBUTEROL 3 ML NEB INHALATION STA (21:50)
[2023-10-10] MEDS: methylPREDNISolone SOD SUCCI 125 MG/2 ML VIAL IV SCH (23:17)
[2023-10-11] MEDS ORDERED: NON FORMULARY DRUG (Levalbuterol Hfa Inhaler 200 PUFF/9 GM Inhaler) INHALATION PRN (02:37)
[2023-10-11] MEDS: MEXILETINE 200 MG CAP PO SCH (05:58)
[2023-10-11 06:59] LABS: Basophils % (A) 0 %; Eosinophils % (A) 0 %; HCT 42.3 % (39.0-53.0); HGB 13.8 gm/dL (13.0-17.5); Lymphocytes # (A) 2.5 k/uL (1.0-4.8); Lymphocytes % (A) 15 %; MCH 31.3 pg (25.0-35.0); MCHC 32.7 g/dL (31.0-37.0); MCV 95.7 fL (80.0-100.0); Mean Platelet Volume 7.8; Monocytes # (A) 0.2 k/uL (0-1.0); Monocytes % (A) 1 %; Neutrophils # (A) 14.5 k/uL (1.3-7.7); Neutrophils % (A) 84 %; Platelet Count 139 k/uL (150-450); RBC 4.42 m/uL (4.30-5.90); RDW 14.8 % (11.5-15.5); WBC 17.3 k/uL (3.8-10.6)
[2023-10-11 07:51] LABS: African American GFR (CKD) >90 (>60 ml/min/1.73 sqM); Anion Gap 10 mmol/L; Blood Urea Nitrogen 15 mg/dL (9-20); Calcium 8.7 mg/dL (8.4-10.2); Carbon Dioxide 20 mmol/L (22-30); Chloride 107 mmol/L (98-107); Glucose 173 mg/dL (74-99); Non-African American GFR(CKD) >90 (>60 ml/min/1.73 sqM); Phosphorus 4.3 mg/dL (2.5-4.5); Potassium 4.5 mmol/L (3.5-5.1); Sodium 137 mmol/L (137-145)
[2023-10-11] MEDS: [UNRECOGNIZED DRUG - OTHER] INHALATION SCH ×2 (09:08→17:08)
[2023-10-11] MEDS: AMIODARONE 200 MG TAB PO SCH (12:33)
[2023-10-11] MEDS: SPIRONOLACTONE 25 MG TAB PO SCH (12:34)
[2023-10-11] MEDS: ASPIRIN 81 MG PO SCH (12:34)
[2023-10-11] MEDS: EZETIMIBE 10 MG TAB PO SCH (12:34)
[2023-10-11] MEDS: CLOPIDOGREL 75 MG TAB PO SCH (12:34)
[2023-10-11] MEDS: SACUBITRIL/VALSARTAN 24 MG-26 MG TABLET PO SCH (12:34)
[2023-10-11] MEDS: METOPROLOL SUCCINATE (ER) 50 MG TAB.ER.24H PO SCH (12:35)
--- NOTE | 2023-10-11 12:42 | P.CNPUL ---
History of Present Illness Consult date: 10/11/23 Requesting physician: Abebe Javed Reason for consult: dyspnea Chief complaint: Difficulty swallowing History of present illness: This is a very pleasant 73-year-old male patient with a known history of nonischemic cardiomyopathy, ventricular tachycardia with previous ablation, AICD placement, hyperlipidemia, former smoker, chronic obstructive pulmonary disease. He presented to the emergency room yesterday after having difficulty swallowing after having a choking episode taking his pills. He did undergo EGD however no foreign body were noted in the esophagus. Following the procedure he was having ongoing issues with excess mucus cough and congestion and ended up being admitted. Soft tissue x-ray revealed suboptimal assessment of the subglottal airway on the frontal view. There nasopharyngeal and oropharyngeal airways appeared patent. No convincing radiopaque foreign body noted. CT scan of the brain revealed no acute intracranial process. Remote frontal lobe injury on the left. Angiogram revealed poor delineation of the esophagus at the level of the larynx. No evidence of free air. No organizing fluid outside the lumen. No evidence of dissection of the cervical internal carotids or vertebral arteries are any evidence of significant stenosis. There is a noted left thyroid gland nodule measuring 2.9 cm. White count 17.3. Hemoglobin 13.8. Platelets 139. Sodium 137. Potassium 4.5. BUN 15. Creatinine 0.76. Glucose 173. He is seen today in consultation on the regular medical floor. He is currently resting comfortably in bed. Awake and alert in no acute distress. He denies any shortness of breath, cough or congestion. Denies any difficulty swallowing this morning. He is maintaining O2 saturations in the upper 90s on room air. He is afebrile. Hemodynamically stable. Review of Systems REVIEW OF SYSTEMS: CONSTITUTIONAL: Denies any recent significant weight loss or weight gain. EYES: Denies change in vision. EARS, NOSE, MOUTH, THROAT: Denies headaches, denies sore throat. CARDIOVASCULAR: Denies chest pain, palpitations or syncopal episodes. RESPIRATORY: Denies shortness of breath, cough, congestion or hemoptysis. GASTROINTESTINAL: Positive for difficulty swallowing a pill, coughing GENITOURINARY: Denies hematuria, denies infections. MUSKULOSKELETAL: Denies pain, denies swelling. INTEGUMENTARY: Denies rash, denies eczema. NEUROLOGICAL: Denies recent memory loss, no recent seizure activity. PSYCHIATRIC: Denies anxiety, denies depression. HEMATOLOGIC/LYMPHATIC: Denies anemia, denies enlarged lymph nodes. Past Medical History Past Medical History: Asthma, COPD, Hyperlipidemia Additional Past Medical History / Comment(s): VTach, nonischemic cardiomyopathy, CHF, organized left ventricular apical clot, previous DVT ablation, asthma requiring intubation twice, BRAIN BLEED WHILE ON BLOOD THINNER RX 2009, cataracts bilaterally History of Any Multi-Drug Resistant Organisms: None Reported Past Surgical History: AICD, EPS, Pacemaker Additional Past Surgical History / Comment(s): 12/07/15 EPS wtih [place] ablation. Other surgical hx: BRAIN SURGERY FOLLOWING BLEED. AICD/PACEMAKER, [facility]. generator change, Defibrilator testing Past Anesthesia/Blood Transfusion Reactions: No Reported Reaction Type of Cardiac Device: Permanent Pacemaker, AICD Device Placement Date:: 2005 implanted with gen change 2012 Past Psychological History: No Psychological Hx Reported Additional Psychological History / Comment(s): Pt resides with his spouse whom he cares for. He uses no assistive device. He drives. Smoking Status: Never smoker Past Alcohol Use History: None Reported Additional Past Alcohol Use History / Comment(s): QUIT: AT AGE 38. SMOKED FOR 20 YRS. PPD: 4-5 CIGARETTES A DAY. Past Drug Use History: None Reported - Past Family History Mother Family Medical History: No Reported History Additional Family Medical History / Comment(s): Mother at age 92 yrs. Father Family Medical History: No Reported History Additional Family Medical History / Comment(s): Father is healthy and 95 yrs old. Medications and Allergies Home Medications Medication Instructions Recorded Confirmed Type Montelukast [Singulair] 10 mg PO HS 09/12/15 10/10/23 History Spironolactone [Aldactone] 25 mg PO DAILY 09/12/15 10/10/23 History Levalbuterol Hfa Inhaler [Xopenex 1 puff INHALATION RT-Q6H PRN 07/17/17 10/10/23 History Hfa Inhaler] Levalbuterol Nebulized [Xopenex 1.25 mg INHALATION RT-TID 07/17/17 10/10/23 History Nebulized] predniSONE 5 mg PO DAILY 02/12/19 10/10/23 History Mexiletine HCl 200 mg PO Q8H 01/30/23 10/10/23 History Aspirin EC [Ecotrin Low Dose] 81 mg PO DAILY #90 tab 02/27/23 10/10/23 Rx Ezetimibe [Zetia] 10 mg PO DAILY #90 tab 02/27/23 10/10/23 Rx Atorvastatin [Lipitor] 80 mg PO HS 03/14/23 10/10/23 History Metoprolol Succinate (ER) [Toprol 50 mg PO DAILY@1200 #30 tab 03/18/23 10/10/23 Rx XL] Amiodarone [Cordarone] 200 mg PO DAILY 07/12/23 10/10/23 History Clopidogrel [Plavix] 75 mg PO DAILY 07/12/23 10/10/23 History Sacubitril/Valsartan [Entresto 24 1 tab PO BID 07/12/23 10/10/23 History mg-26 mg Tablet] Allergies Allergy/AdvReac Type Severity Reaction Status Date / Time hydrocodone [From [place]] Allergy Difficulty Verified 10/10/23 22:09 breathing due to asthma ibuprofen Allergy Was told Verified 10/10/23 22:09 not to take while on Brilinta albuterol AdvReac Rapid Verified 10/10/23 22:09 Heart Rate Physical Exam Vitals: Vital Signs Temp Pulse Pulse Resp BP BP Pulse Ox 10/11/23 09:23 76 10/11/23 09:08 76 10/11/23 07:00 97.5 F L 84 16 137/73 98 10/11/23 02:00 97.5 F L 91 16 173/89 95 10/10/23 23:25 98.3 F 76 16 137/74 90 L 10/10/23 22:30 79 20 131/64 95 10/10/23 21:58 80 10/10/23 21:48 81 10/10/23 19:42 74 18 148/85 94 L Intake and Output 10/10/23 10/11/23 10/11/23 22:59 06:59 14:59 Other: # Voids 1 Weight 82.5 kg GENERAL EXAM: Alert, very pleasant 73-year-old male patient, on room air, comfortable in no apparent distress. HEAD: Normocephalic. EYES: Normal reaction of pupils, equal size. NOSE: Clear with pink turbinates. THROAT: No erythema or exudates. NECK: No masses, no JVD. CHEST: No chest wall deformity. LUNGS: Equal air entry with no crackles, wheeze, rhonchi or dullness. CVS: S1 and S2 normal with no audible murmur, regular rhythm. ABDOMEN: No hepatosplenomegaly, normal bowel sounds, no guarding or rigidity. SPINE: No scoliosis or deformity SKIN: No rashes CENTRAL NERVOUS SYSTEM: No focal deficits, tone is normal in all 4 extremities. EXTREMITIES: There is no peripheral edema. No clubbing, no cyanosis. Peripheral pulses are intact. Results - Laboratory Findings CBC and BMP: 10/11/23 06:44 10/11/23 06:44 PT/INR, D-dimer PT 10.4 sec (10.0-12.5) 10/10/23 19:06 INR 0.9 (<1.2) 10/10/23 19:06 Abnormal lab findings: Abnormal Labs 10/10/23 10/10/23 10/10/23 19:06 19:06 19:06 WBC 16.0 H Plt Count 137 L Neutrophils # 13.1 H APTT 21.6 L Sodium 136 L Carbon Dioxide Glucose Total Protein 5.8 L 10/11/23 10/11/23 06:44 06:44 WBC 17.3 H Plt Count 139 L Neutrophils # 14.5 H APTT Sodium Carbon Dioxide 20 L Glucose 173 H Total Protein - Diagnostic Findings Chest x-ray: image reviewed Assessment and Plan Assessment: Dysphagia secondary to difficulty swallowing a pill. EGD did not reveal any evidence of foreign body Left thyroid nodule measuring 2.9 cm to be followed up in the outpatient setting history of chronic obstructive pulmonary disease, currently inactive and stable History of obstructive pulmonary disease, currently inactive and stable Nonischemic cardiomyopathy History of ventricular tachycardia status post ablation, status post AICD History of congestive heart failure History of previous ventilatory dependent respiratory failure secondary to COPD exacerbations History of brain hemorrhage while on blood thinners Plan: The patient was seen and evaluated Chest x-ray, CT scans, labs and medications reviewed EGD revealed no evidence of foreign body Stable and on room air Cleared for discharge from the pulmonary standpoint To follow-up with endocrinology regarding the large left thyroid nodule I have personally seen and examined the patient, performed the documentation and the assessment and plan as written. Number of minutes spent on the visit: 20.
--- NOTE | 2023-10-11 12:44 | P.HPIM ---
History of Present Illness H&P Date: 10/11/23 History of present illness; patient 73-year-old gentleman past medical significant for COPD, CHF who was discharged earlier this morning after being admitted for pill being stuck in his throat. Apparently patient was taking his pills and one of the large pill got stuck in his throat and was difficult for her to go down. Patient in the ER and was evaluated by ER physician and GI took him for EGD, EGD showed mucosal irritation in the proximal part of esophagus, no foreign body was noted. Patient was discharged home but returned as he was having worsening cough and shortness of breath. Initial lab work done in the ER showed WBC 16, hemoglobin 13.9, platelet count 137, sodium 130s, potassium 4.2, BUN 15, creatinine 0.79 CT head done showed no acute intracranial process CTA head and neck done showed no evidence of dissection of cervical internal carotid arteries or vertebral arteries or any evidence significant stenosis of the carotid bifurcation Patient admitted to internal medicine service REVIEW OF SYSTEMS: CONSTITUTIONAL: No fever, no malaise, no fatigue. HEENT: No recent visual problems or hearing problems. Denied any sore throat. CARDIOVASCULAR: No chest pain, orthopnea, PND, no palpitations, no syncope. PULMONARY: As mentioned above GASTROINTESTINAL: No diarrhea, no nausea, no vomiting, no abdominal pain. Complaining of difficulty in swallowing NEUROLOGICAL: No headaches, no weakness, no numbness. HEMATOLOGICAL: Denies any bleeding or petechiae. GENITOURINARY: Denies any burning micturition, frequency, or urgency. MUSCULOSKELETAL/RHEUMATOLOGICAL: Denies any joint pain, swelling, or any muscle pain. ENDOCRINE: Denies any polyuria or polydipsia. The rest of the 14-point review of systems is negative. PHYSICAL EXAMINATION: GENERAL: The patient is alert and oriented x3, not in any acute distress. Well developed, well nourished. HEENT: Pupils are round and equally reacting to light. EOMI. No scleral icterus. No conjunctival pallor. Normocephalic, atraumatic. No pharyngeal erythema. No thyromegaly. CARDIOVASCULAR: S1 and S2 present. No murmurs, rubs, or gallops. PULMONARY: Chest is clear to auscultation, no wheezing or crackles. ABDOMEN: Soft, nontender, nondistended, normoactive bowel sounds. No palpable organomegaly. MUSCULOSKELETAL: No joint swelling or deformity. EXTREMITIES: No cyanosis, clubbing, or pedal edema. NEUROLOGICAL: Gross neurological examination did not reveal any focal deficits. SKIN: No rashes. Assessment and plan Dyspnea Pill induced esophagitis Left vertebral artery stenosis Hypertension COPD Left thyroid nodule measuring 2.9 cm to be followed up in the outpatient setting history of chronic obstructive pulmonary disease, currently inactive and stable Nonischemic cardiomyopathy History of ventricular tachycardia status post ablation, status post AICD History of congestive heart failure History of previous ventilatory dependent respiratory failure secondary to COPD exacerbations History of brain hemorrhage while on blood thinners Monitor vital signs Monitor CBC Monitor CMP Continue telemetry monitoring CT chest ordered CT neck ordered Continue IV steroids Continue breathing treatment Pulmonology consulted Labs and medication were reviewed.. Continue same treatment. Continue with symptomatic treatment. Resume home medication. Monitor labs and vitals. DVT and GI prophylaxis. Further recommendations as per clinical course of the patient Dictation was produced using [employer] dictation software. please excuse any grammatical, word or spelling errors. Past Medical History Past Medical History: Asthma, COPD, Hyperlipidemia Additional Past Medical History / Comment(s): VTach, nonischemic cardiomyopathy, CHF, organized left ventricular apical clot, previous DVT ablation, asthma requiring intubation twice, BRAIN BLEED WHILE ON BLOOD THINNER RX 2009, cataracts bilaterally History of Any Multi-Drug Resistant Organisms: None Reported Past Surgical History: AICD, EPS, Pacemaker Additional Past Surgical History / Comment(s): 12/07/15 EPS [facility] [place] ablation. Other surgical hx: BRAIN SURGERY FOLLOWING BLEED. AICD/PACEMAKER, [facility]. generator change, Defibrilator testing Past Anesthesia/Blood Transfusion Reactions: No Reported Reaction Type of Cardiac Device: Permanent Pacemaker, AICD Device Placement Date:: 2005 implanted with gen change 2012 Past Psychological History: No Psychological Hx Reported Additional Psychological History / Comment(s): Pt resides with his spouse whom he cares for. He uses no assistive device. He drives. Smoking Status: Never smoker Past Alcohol Use History: None Reported Additional Past Alcohol Use History / Comment(s): QUIT: AT AGE 38. SMOKED FOR 20 YRS. PPD: 4-5 CIGARETTES A DAY. Past Drug Use History: None Reported - Past Family History Mother Family Medical History: No Reported History Additional Family Medical History / Comment(s): Mother at age 92 yrs. Father Family Medical History: No Reported History Additional Family Medical History / Comment(s): Father is healthy and 95 yrs old. Medications and Allergies Home Medications Medication Instructions Recorded Confirmed Type Montelukast [Singulair] 10 mg PO HS 09/12/15 10/10/23 History Spironolactone [Aldactone] 25 mg PO DAILY 09/12/15 10/10/23 History Levalbuterol Hfa Inhaler [Xopenex 1 puff INHALATION RT-Q6H PRN 07/17/17 10/10/23 History Hfa Inhaler] Levalbuterol Nebulized [Xopenex 1.25 mg INHALATION RT-TID 07/17/17 10/10/23 History Nebulized] predniSONE 5 mg PO DAILY 02/12/19 10/10/23 History Mexiletine HCl 200 mg PO Q8H 01/30/23 10/10/23 History Aspirin EC [Ecotrin Low Dose] 81 mg PO DAILY #90 tab 02/27/23 10/10/23 Rx Ezetimibe [Zetia] 10 mg PO DAILY #90 tab 02/27/23 10/10/23 Rx Atorvastatin [Lipitor] 80 mg PO HS 03/14/23 10/10/23 History Metoprolol Succinate (ER) [Toprol 50 mg PO DAILY@1200 #30 tab 03/18/23 10/10/23 Rx XL] Amiodarone [Cordarone] 200 mg PO DAILY 07/12/23 10/10/23 History Clopidogrel [Plavix] 75 mg PO DAILY 07/12/23 10/10/23 History Sacubitril/Valsartan [Entresto 24 1 tab PO BID 07/12/23 10/10/23 History mg-26 mg Tablet] Allergies Allergy/AdvReac Type Severity Reaction Status Date / Time hydrocodone [From [place]] Allergy Difficulty Verified 10/10/23 22:09 breathing due to asthma ibuprofen Allergy Was told Verified 10/10/23 22:09 not to take while on Brilinta albuterol AdvReac Rapid Verified 10/10/23 22:09 Heart Rate Physical Exam Vitals: Vital Signs Temp Pulse Pulse Resp BP BP Pulse Ox 10/11/23 09:23 76 10/11/23 09:08 76 10/11/23 07:00 97.5 F L 84 16 137/73 98 10/11/23 02:00 97.5 F L 91 16 173/89 95 10/10/23 23:25 98.3 F 76 16 137/74 90 L 10/10/23 22:30 79 20 131/64 95 10/10/23 21:58 80 10/10/23 21:48 81 10/10/23 19:42 74 18 148/85 94 L Intake and Output 10/10/23 10/11/23 10/11/23 22:59 06:59 14:59 Other: # Voids 1 Weight 82.5 kg Results CBC & Chem 7: 10/11/23 06:44 10/11/23 06:44 Labs: Abnormal Lab Results - Last 24 Hours (Table) 10/10/23 10/10/23 10/10/23 Range/Units 19:06 19:06 19:06 WBC 16.0 H (3.8-10.6) k/uL Plt Count 137 L (150-450) k/uL Neutrophils # 13.1 H (1.3-7.7) k/uL APTT 21.6 L (22.0-30.0) sec Sodium 136 L (137-145) mmol/L Carbon Dioxide (22-30) mmol/L Glucose (74-99) mg/dL Total Protein 5.8 L (6.3-8.2) g/dL 10/11/23 10/11/23 Range/Units 06:44 06:44 WBC 17.3 H (3.8-10.6) k/uL Plt Count 139 L (150-450) k/uL Neutrophils # 14.5 H (1.3-7.7) k/uL APTT (22.0-30.0) sec Sodium (137-145) mmol/L Carbon Dioxide 20 L (22-30) mmol/L Glucose 173 H (74-99) mg/dL Total Protein (6.3-8.2) g/dL
--- NOTE | 2023-10-11 16:57 | CT ---
EXAMINATION TYPE: CT chest angio for PE CT DLP: 1000.70 combined mGycm, Automated exposure control for dose reduction was used. DATE OF EXAM: 10/11/2023 4:32 PM COMPARISON: None CLINICAL INDICATION:Male, 73 years old with history of Dyspnea; Dyspnea and dysphagia TECHNIQUE/CONTRAST: CTA scan of the thorax is performed with IV Contrast, patient injected with 110 mL of Isovue 370, MIP images are created and reviewed these are created on a separate workstation.. FINDINGS: Pulmonary Artery: There is no evidence for a filling defect within the pulmonary vasculature to sugge st acute pulmonary embolism. The pulmonary artery is of normal size. Lungs/Pleura: No evidence of focal consolidation, pleural effusion or pneumothorax. Left lower lobe a irspace opacities. Centrilobular and paraseptal emphysema changes in the lung apices. Airway: Large airways are patent. Heart: Evidence of prior injury to the heart is thrombus within the left heart apex. Moderate to lester re coronary artery atherosclerosis. Conduction leads terminating the right ventricle and right atrium . Vasculature: No evidence of aortic aneurysm. Mediastinum: No gross evidence of adenopathy. Small hiatal hernia present. Musculoskeletal: Mild degenerative disc disease changes are present throughout the thoracolumbar spin e. Soft Tissues: Cardiac conduction device with Lower neck: Thyroid gland nodule which is lower attenuating the DIPs into the superior mediastinum me asuring up to 28 mm. Upper Abdomen: No significant findings. IMPRESSION: 1. No evidence of pulmonary embolism. 2. Evidence of prior infarct to the left ventricle apex with calcifications along the myocardium. Th ere is suspected left ventricle thrombus present in the apex. Echocardiogram evaluation may be of yumiko efit. 3. Left lower lobe airspace opacities correlate for pneumonia developing pneumonia. 4. [id number] emphysema. 5. Left thyroid nodule located in the superior mediastinum. 6. Small hiatal hernia.
--- NOTE | 2023-10-11 17:00 | CT ---
EXAMINATION TYPE: CT soft tissue neck w con CT DLP: 1000.70 combined mGycm, Automated exposure control for dose reduction was used. DATE OF EXAM: 10/11/2023 4:34 PM COMPARISON: CT same day. CLINICAL INDICATION:Male, 73 years old with history of dysphagia; PHH, Dyspnea and dysphagia. TECHNIQUE: Standard enhanced CT of the neck. Axial sections with coronal and sagittal reformats were obtained. Contrast used:110ml mL of Isovue 370 with IV Contrast, (None if empty) Oral contrast used: (None if empty) FINDINGS: Brain: Visualized portions are grossly unremarkable. Orbits: Bilateral aphakia. Sinuses: Mild paranasal sinus disease. Spaces of the neck: Clear and symmetric. The pharynx and larynx appear rather symmetrical. Musculoskeletal: No acute osseous pathology. Degenerative disc disease changes of the visualized spin e are present. Lymph nodes: Multiple nonenlarged lymph nodes are seen along both anterior chains of the neck. Vascular structures: Visualized major arteries are patent without evidence of aneurysm. Thoracic Inlet/airway: Airway is patent. The lung apices are clear. Soft tissues/Thyroid: Left thyroid nodule in the superior mediastinum measuring up to 26 mm. Other: none. IMPRESSION 1. No definite evidence for abscess or significant abnormality. No lymphadenopathy identified. 2. Left superior mediastinum there are nodule.
[2023-10-11] MEDS: MONTELUKAST 10 MG TAB PO SCH (20:38)
[2023-10-11] MEDS: ATORVASTATIN 80 MG TAB PO SCH (21:05)
[2023-10-12] MEDS: BENZOCAINE/MENTHOL LOZENG 1 EACH LOZENGE MUCOUS MEM PRN (11:09)
--- NOTE | 2023-10-12 12:49 | P.PN ---
Subjective Progress Note Date: 10/12/23 This is a very pleasant 73-year-old male patient with a known history of nonischemic cardiomyopathy, ventricular tachycardia with previous ablation, AICD placement, hyperlipidemia, former smoker, chronic obstructive pulmonary disease. He presented to the emergency room yesterday after having difficulty swallowing after having a choking episode taking his pills. He did undergo EGD however no foreign body were noted in the esophagus. Following the procedure he was having ongoing issues with excess mucus cough and congestion and ended up being admitted. Soft tissue x-ray revealed suboptimal assessment of the subglottal airway on the frontal view. There nasopharyngeal and oropharyngeal airways ap peared patent. No convincing radiopaque foreign body noted. CT scan of the brain revealed no acute intracranial process. Remote frontal lobe injury on the left. Angiogram revealed poor delineation of the esophagus at the level of the larynx. No evidence of free air. No organizing fluid outside the lumen. No evidence of dissection of the cervical internal carotids or vertebral arteries are any evidence of significant stenosis. There is a noted left thyroid gland nodule measuring 2.9 cm. White count 17.3. Hemoglobin 13.8. Platelets 139. Sodium 137. Potassium 4.5. BUN 15. Creatinine 0.76. Glucose 173. He is seen today in consultation on the regular medical floor. He is currently resting comfortably in bed. Awake and alert in no acute distress. He denies any shortness of breath, cough or congestion. Denies any difficulty swallowing this morning. He is maintaining O2 saturations in the upper 90s on room air. He is afebrile. Hemodynamically stable. The patient is seen today October 12, 2023 in follow-up on the regular medical floor. He is currently resting comfortably in bed. Awake and alert in no acute distress. He is still having ongoing issues with difficulty swallowing pills. He is complaining of a sore throat. CT angiogram ruled out pulmonary embolism. There is left lower lobe airspace opacities with possible developing pneumonia. Mild to moderate emphysema. Left thyroid nodule located in the superior mediastinum. Small hiatal hernia. CT soft tissue neck revealed no definite evidence for abscess or significant abnormality. No lymphadenopathy noted. Thyroid nodule noted in the left superior mediastinum. No new labs today. He remains on his home Xopenex. Remains on Solu-Medrol. Swallow evaluation pending. Objective - Vital Signs Vital signs: Vital Signs Temp 98.0 F 02/18/24 07:00 Pulse 84 10/12/23 12:15 Resp 16 10/12/23 07:00 BP 134/72 10/12/23 07:00 Pulse Ox 91 L 10/12/23 07:00 FiO2 Intake & Output 10/11/23 10/12/23 10/12/23 18:59 06:59 18:59 Other: Voiding Method Toilet Toilet Toilet Urinal # Voids 2 1 # Bowel Movements 1 - Exam GENERAL EXAM: Alert, 73-year-old male patient, on room air, in no apparent distress. HEAD: Normocephalic. EYES: Normal reaction of pupils, equal size. NOSE: Clear with pink turbinates. THROAT: No erythema or exudates. No evidence of yeast. No visible mass. NECK: No masses, no JVD. CHEST: No chest wall deformity. LUNGS: Equal air entry with no crackles, wheeze, rhonchi or dullness. CVS: S1 and S2 normal with no audible murmur, regular rhythm. ABDOMEN: No hepatosplenomegaly, normal bowel sounds, no guarding or rigidity. SPINE: No scoliosis or deformity SKIN: No rashes CENTRAL NERVOUS SYSTEM: No focal deficits, tone is normal in all 4 extremities. EXTREMITIES: There is no peripheral edema. No clubbing, no cyanosis. Anastasiya pheral pulses are intact. - Labs CBC & Chem 7: 10/11/23 06:44 10/11/23 06:44 Assessment and Plan Assessment: Dysphagia secondary to difficulty swallowing a pill. EGD did not reveal any evidence of foreign body Left thyroid nodule measuring 2.9 cm to be followed up in the outpatient setting History of chronic obstructive pulmonary disease, currently inactive and stable History of obstructive pulmonary disease, currently inactive and stable Nonischemic cardiomyopathy History of ventricular tachycardia status post ablation, status post AICD History of congestive heart failure History of previous ventilatory dependent respiratory failure secondary to COPD exacerbations History of brain hemorrhage while on blood thinners Plan: The patient was seen and evaluated CT scans, medications reviewed Stable and on room air Swallow evaluation pending Continue steroids for now Increase his activity as tolerated I have personally seen and examined the patient, performed the documentation and the assessment and plan as written. Number of minutes spent on the visit: 10.
--- NOTE | 2023-10-12 12:51 | P.PN ---
Subjective Progress Note Date: 10/12/23 This is a very pleasant 73-year-old male patient with a known history of nonischemic cardiomyopathy, ventricular tachycardia with previous ablation, AICD placement, hyperlipidemia, former smoker, chronic obstructive pulmonary disease. He presented to the emergency room yesterday after having difficulty swallowing after having a choking episode taking his pills. He did undergo EGD however no foreign body were noted in the esophagus. Following the procedure he was having ongoing issues with excess mucus cough and congestion and ended up being admitted. Soft tissue x-ray revealed suboptimal assessment of the subglottal airway on the frontal view. There nasopharyngeal and oropharyngeal airways domitila eared patent. No convincing radiopaque foreign body noted. CT scan of the brain revealed no acute intracranial process. Remote frontal lobe injury on the left. Angiogram revealed poor delineation of the esophagus at the level of the larynx. No evidence of free air. No organizing fluid outside the lumen. No evidence of dissection of the cervical internal carotids or vertebral arteries are any evidence of significant stenosis. There is a noted left thyroid gland nodule measuring 2.9 cm. White count 17.3. Hemoglobin 13.8. Platelets 139. Sodium 137. Potassium 4.5. BUN 15. Creatinine 0.76. Glucose 173. He is seen today in consultation on the regular medical floor. He is currently resting comfortably in bed. Awake and alert in no acute distress. He denies any shortness of breath, cough or congestion. Denies any difficulty swallowing this morning. He is maintaining O2 saturations in the upper 90s on room air. He is afebrile. Hemodynamically stable. 10/12. Patient seen and examined. CT soft tissue neck showed no definite evidence of abscess or abnormality. CTA chest showed no PE. States he feels slightly better compared to yesterday. Still very hesitant to try to eat. Speech evaluation ordered REVIEW OF SYSTEMS: CONSTITUTIONAL: No fever, no malaise,. CARDIOVASCULAR: No chest pain, no palpitations, no syncope. PULMONARY: No shortness of breath, no cough, GASTROINTESTINAL: No diarrhea, no nausea, no vomiting, no abdominal pain. NEUROLOGICAL: No headaches, no weakness, PHYSICAL EXAMINATION: GENERAL: The patient is alert and oriented x3, not in any acute distress. Well developed, well nourished. HEENT: Pupils are round and equally reacting to light. EOMI. No scleral icterus. No conjunctival pallor. Normocephalic, atraumatic. No pharyngeal erythema. No thyromegaly. CARDIOVASCULAR: S1 and S2 present. No murmurs, rubs, or gallops. PULMONARY: Chest is clear to auscultation, no wheezing or crackles. ABDOMEN: Soft, nontender, nondistended, normoactive bowel sounds. No palpable organomegaly. MUSCULOSKELETAL: No joint swelling or deformity. EXTREMITIES: No cyanosis, clubbing, or pedal edema. NEUROLOGICAL: Gross neurological examination did not reveal any focal deficits. SKIN: No rashes. Assessment and plan Dyspnea Pill induced esophagitis Left vertebral artery stenosis Hypertension COPD Left thyroid nodule measuring 2.9 cm to be followed up in the outpatient setting history of chronic obstructive pulmonary disease, currently inactive and stable Nonischemic cardiomyopathy History of ventricular tachycardia status post ablation, status post AICD History of congestive heart failure History of previous ventilatory dependent respiratory failure secondary to COPD exacerbations History of brain hemorrhage while on blood thinners Monitor vital signs Monitor CBC Monitor CMP Continue telemetry monitoring CT soft tissue neck showed no definite evidence of abscess or abnormality. CTA chest showed no PE Continue IV steroids Continue IV Protonix Continue breathing treatment Ordered speech evaluation Surgery consulted for dysphagia Pulmonology following Labs and medication were reviewed.. Continue same treatment. Continue with symptomatic treatment. Resume home medication. Monitor labs and vitals. DVT and GI prophylaxis. Further recommendations as per clinical course of the patient Dictation was produced using [employer] dictation software. please excuse any grammatical, word or spelling errors. Objective - Vital Signs Vital signs: Vital Signs Temp 98.0 F 10/12/23 07:00 Pulse 88 10/12/23 08:18 Resp 16 10/12/23 07:00 BP 134/72 10/12/23 07:00 Pulse Ox 91 L 10/12/23 07:00 FiO2 Intake & Output 10/11/23 10/12/23 10/12/23 18:59 06:59 18:59 Other: Voiding Method Toilet Urinal # Voids 2 1 # Bowel Movements 1 - Labs CBC & Chem 7: 10/11/23 06:44 10/11/23 06:44
[2023-10-12] MEDS: PSYLLIUM HUSK 100% 6 GM PACKET PO SCH (17:41)
[2023-10-12] MEDS: PANTOPRAZOLE 40 MG/10 ML VIAL IVP SCH (17:50)
[2023-10-13 11:00] LABS: Basophils # (A) 0.02 X 10*3/uL (0.00-0.10); Basophils % (A) 0.1 %; Eosinophils # (A) 0.04 X 10*3/uL (0.04-0.35); Eosinophils % (A) 0.2 %; HCT 35.8 % (39.6-50.0); HGB 11.7 g/dL (13.0-17.0); Lymphocytes # (A) 2.25 X 10*3/uL (0.90-5.00); Lymphocytes % (A) 13.9 %; MCH 30.8 pg (27.0-32.0); MCHC 32.7 g/dL (32.0-37.0); MCV 94.2 FL (80.0-97.0); Mean Platelet Volume 10.9 FL (9.5-12.2); Monocytes # (A) 0.42 X 10*3/uL (0.20-1.00); Monocytes % (A) 2.6 %; NRBC Per 100 WBC 0 X 10*3/uL (0.00-0.01); Neutrophils # (A) 13.41 X 10*3/uL (1.80-7.70); Neutrophils % (A) 82.8 %; Platelet Count 135 X 10*3/uL (140-440); RDW 15.9 % (11.5-14.5); WBC 16.21 X 10*3/uL (4.50-10.00)
[2023-10-13 11:10] LABS: Blood Urea Nitrogen 19.6 mg/dL (9.0-27.0); Carbon Dioxide 25.1 mmol/L (21.6-31.8); Chloride 110 mmol/L (96-109); Glucose 150 mg/dL (70-110); Sodium 144 mmol/L (135-145)
[2023-10-13 11:11] LABS: ALT 32 U/L (10-49); AST 29 U/L (14-35); Albumin 3.2 g/dL (3.8-4.9); Albumin/Globulin Ratio 2.13 Ratio (1.60-3.17); Alkaline Phosphatase 46 U/L (41-126); Calcium 8.7 mg/dL (8.7-10.3); Globulin 1.5 g/dL (1.6-3.3); Total Bilirubin 0.5 mg/dL (0.3-1.2); Total Protein 4.7 g/dL (6.2-8.2)
--- NOTE | 2023-10-13 11:44 | P.GSCN ---
History of Present Illness Consult date: 10/13/23 History of present illness: CHIEF COMPLAINT: Dysphagia HISTORY OF PRESENT ILLNESS: This is a 73-year-old male who presented to the hospital with dysphagia. Patient felt that he had pills stuck in his esophagus on Friday. He underwent EGD with Dr. Nassar on 10/10/2023 which had shown pill esophagitis and hiatal hernia. He was discharged home but then continued to hav e difficulty swallowing and was spitting up mucus. He returned to the ER later that day. Patient reports that he thought he was going to vomit and then he started to have blood in the mucus this has resolved. He did take Plavix this morning. He is able to take in liquids. However, solids will not stay down. PAST MEDICAL HISTORY: Asthma, COPD, Hyperlipidemia, VTach, nonischemic cardiomyopathy, CHF, organized left ventricular apical clot, previous DVT ablation, asthma requiring intubation twice, BRAIN BLEED WHILE ON BLOOD THINNER RX 2009, cataracts bilaterally PAST SURGICAL HISTORY: AICD MEDICATIONS: See below ALLERGIES: See below SOCIAL HISTORY: No illicit drug use. REVIEW OF SYSTEMS: CONSTITUTIONAL: Denies fever or chills. HEENT: Denies blurred vision, vision changes, or eye pain. Denies hemoptysis CARDIOVASCULAR: Denies chest pain or pressure. RESPIRATORY: No shortness of breath. GASTROINTESTINAL: See HPI for pertinent findings HEMATOLOGIC: Denies bleeding disorders. GENITOURINARY: Denies any blood in urine or increased urinary frequency. SKIN: Denies pruitis. Denies rash. PHYSICAL EXAM: VITAL SIGNS: Reviewed GENERAL: Well-developed in no acute distress. HEENT: No sclera icterus. Extraocular movements grossly intact. Moist buccal mucosa. Head is atraumatic, normocephalic. No nasal drainage. ABDOMEN: Soft. Nondistended. Nontender NEUROLOGIC: Alert and oriented. Cranial nerves II through XII grossly intact. LABORATORY DATA: WBC 17 down to 16.2 Hgb 11.7 platelets 135 Sodium is 144 potassium is 4.0 creatinine 0.7 IMAGING: Soft tissue neck CT no definite abscess or significant abnormality. No lymphadenopathy. Left thyroid nodule in the superior mediastinum Chest CTA no evidence of PE. Evidence of prior infarct in the left ventricle apex with calcifications along the myocardium. Suspected left ventricle thrombus present in the apex. Left lower lobe airspace opacities correlate for developing pneumonia. Mild to moderate emphysema. Left thyroid nodule located superior mediastinum. Small hiatal hernia. ASSESSMENT: 1. Dysphagia 2. Pill esophagitis and hiatal hernia noted on recent EGD PLAN: -Patient scheduled for esophagram today -Keep patient n.p.o. -Further recommendations forthcoming per surgeon -Continue PPI Physician Speech Lang Path Therapist note has been reviewed by physician. Signing provider agrees with the documented findings, assessment, and plan of care. Past Medical History Past Medical History: Asthma, COPD, Hyperlipidemia Additional Past Medical History / Comment(s): VTach, nonischemic cardiomyopathy, CHF, organized left ventricular apical clot, previous DVT ablation, asthma requiring intubation twice, BRAIN BLEED WHILE ON BLOOD THINNER RX 2009, cataracts bilaterally History of Any Multi-Drug Resistant Organisms: None Reported Past Surgical History: AICD, EPS, Pacemaker Additional Past Surgical History / Comment(s): 12/07/15 EPS wtih VT ablation. Other surgical hx: BRAIN SURGERY FOLLOWING BLEED. AICD/PACEMAKER, [facility]. generator change, Defibrilator testing Past Anesthesia/Blood Transfusion Reactions: No Reported Reaction Type of Cardiac Device: Permanent Pacemaker, AICD Device Placement Date:: 2005 implanted with gen change 2012 Past Psychological History: No Psychological Hx Reported Additional Psychological History / Comment(s): Pt resides with his spouse whom he cares for. He uses no assistive device. He drives. Smoking Status: Never smoker Past Alcohol Use History: None Reported Additional Past Alcohol Use History / Comment(s): QUIT: AT AGE 38. SMOKED FOR 20 YRS. PPD: 4-5 CIGARETTES A DAY. Past Drug Use History: None Reported - Past Family History Mother Family Medical History: No Reported History Additional Family Medical History / Comment(s): Mother at age 92 yrs. Father Family Medical History: No Reported History Additional Family Medical History / Comment(s): Father is healthy and 95 yrs old. Medications and Allergies Home Medications Medication Instructions Recorded Confirmed Type RX: Montelukast [Singulair] 10 mg PO HS 09/12/15 10/10/23 History RX: Spironolactone [Aldactone] 25 mg PO DAILY 09/12/15 10/10/23 History RX: Levalbuterol Hfa Inhaler 1 puff INHALATION RT-Q6H PRN 07/17/17 10/10/23 His tory [Xopenex Hfa Inhaler] RX: Levalbuterol Nebulized 1.25 mg INHALATION RT-TID 07/17/17 10/10/23 History [Xopenex Nebulized] RX: predniSONE 5 mg PO DAILY 02/12/19 10/10/23 History RX: Mexiletine HCl 200 mg PO Q8H 01/30/23 10/10/23 History RX: Aspirin EC [Ecotrin Low Dose] 81 mg PO DAILY #90 tab 02/27/23 10/10/23 Rx RX: Ezetimibe [Zetia] 10 mg PO DAILY #90 tab 02/27/23 10/10/23 Rx RX: Atorvastatin [Lipitor] 80 mg PO HS 03/14/23 10/10/23 History RX: Metoprolol Succinate (ER) 50 mg PO DAILY@1200 #30 tab 03/18/23 10/10/23 Rx [Toprol XL] RX: Amiodarone [Cordarone] 200 mg PO DAILY 07/12/23 10/10/23 History RX: Clopidogrel [Plavix] 75 mg PO DAILY 07/12/23 10/10/23 History RX: Sacubitril/Valsartan [Entresto 1 tab PO BID 07/12/23 10/10/23 History 24 mg-26 mg Tablet] Allergies Allergy/AdvReac Type Severity Reaction Status Date / Time hydrocodone [From [place]] Allergy Difficulty Verified 10/10/23 22:09 breathing due to asthma ibuprofen Allergy Was told Verified 10/10/23 22:09 not to take while on Brilinta albuterol AdvReac Rapid Verified 10/10/23 22:09 Heart Rate Surgical - Exam Vital Signs Pulse Resp BP Pulse Ox 74 18 148/85 94 L 10/10/23 19:42 10/10/23 19:42 10/10/23 19:42 10/10/23 19:42 Results - Labs 10/13/23 06:27 10/13/23 06:27 Abnormal Lab Results - Last 24 Hours (Table) 10/13/23 10/13/23 Range/Units 06:27 06:27 WBC 16.21 H (4.50-10.00) X 10*3/uL RBC 3.80 L (4.40-5.60) X 10*6/uL Hgb 11.7 L (13.0-17.0) g/dL Hct 35.8 L (39.6-50.0) % RDW 15.9 H (11.5-14.5) % Plt Count 135 L (140-440) X 10*3/uL Immature Gran # 0.07 H (0.00-0.04) X 10*3/uL Neutrophils # 13.41 H (1.80-7.70) X 10*3/uL Chloride 110 H (96-109) mmol/L BUN/Creatinine Ratio 28.00 H (12.00-20.00) Ratio Glucose 150 H (70-110) mg/dL Total Protein 4.7 L (6.2-8.2) g/dL Albumin 3.2 L (3.8-4.9) g/dL Globulin 1.5 L (1.6-3.3) g/dL Diabetes panel 10/13/23 Range/Units 06:27 Sodium 144 (135-145) mmol/L Potassium 4.0 (3.5-5.5) mmol/L Chloride 110 H (96-109) mmol/L Carbon Dioxide 25.1 (21.6-31.8) mmol/L BUN 19.6 (9.0-27.0) mg/dL Creatinine 0.7 (0.6-1.5) mg/dL Glucose 150 H (70-110) mg/dL Calcium 8.7 (8.7-10.3) mg/dL AST 29 (14-35) U/L ALT 32 (10-49) U/L Alkaline Phosphatase 46 (41-126) U/L Total Protein 4.7 L (6.2-8.2) g/dL Albumin 3.2 L (3.8-4.9) g/dL Calcium panel 10/13/23 Range/Units 06:27 Calcium 8.7 (8.7-10.3) mg/dL Albumin 3.2 L (3.8-4.9) g/dL Pituitary panel 10/13/23 Range/Units 06:27 Sodium 144 (135-145) mmol/L Potassium 4.0 (3.5-5.5) mmol/L Chloride 110 H (96-109) mmol/L Carbon Dioxide 25.1 (21.6-31.8) mmol/L BUN 19.6 (9.0-27.0) mg/dL Creatinine 0.7 (0.6-1.5) mg/dL Glucose 150 H (70-110) mg/dL Calcium 8.7 (8.7-10.3) mg/dL Adrenal panel 10/13/23 Range/Units 06:27 Sodium 144 (135-145) mmol/L Potassium 4.0 (3.5-5.5) mmol/L Chloride 110 H (96-109) mmol/L Carbon Dioxide 25.1 (21.6-31.8) mmol/L BUN 19.6 (9.0-27.0) mg/dL Creatinine 0.7 (0.6-1.5) mg/dL Glucose 150 H (70-110) mg/dL Calcium 8.7 (8.7-10.3) mg/dL Total Bilirubin 0.5 (0.3-1.2) mg/dL AST 29 (14-35) U/L ALT 32 (10-49) U/L Alkaline Phosphatase 46 (41-126) U/L Total Protein 4.7 L (6.2-8.2) g/dL Albumin 3.2 L (3.8-4.9) g/dL
--- NOTE | 2023-10-13 11:47 | P.PN ---
Subjective Progress Note Date: 10/13/23 This is a very pleasant 73-year-old male patient with a known history of nonischemic cardiomyopathy, ventricular tachycardia with previous ablation, AICD placement, hyperlipidemia, former smoker, chronic obstructive pulmonary disease. He presented to the emergency room yesterday after having difficulty swallowing after having a choking episode taking his pills. He did undergo EGD however no foreign body were noted in the esophagus. Following the procedure he was having ongoing issues with excess mucus cough and congestion and ended up being admitted. Soft tissue x-ray revealed suboptimal assessment of the subglottal airway on the frontal view. There nasopharyngeal and oropharyngeal airways ap peared patent. No convincing radiopaque foreign body noted. CT scan of the brain revealed no acute intracranial process. Remote frontal lobe injury on the left. Angiogram revealed poor delineation of the esophagus at the level of the larynx. No evidence of free air. No organizing fluid outside the lumen. No evidence of dissection of the cervical internal carotids or vertebral arteries are any evidence of significant stenosis. There is a noted left thyroid gland nodule measuring 2.9 cm. White count 17.3. Hemoglobin 13.8. Platelets 139. Sodium 137. Potassium 4.5. BUN 15. Creatinine 0.76. Glucose 173. He is seen today in consultation on the regular medical floor. He is currently resting comfortably in bed. Awake and alert in no acute distress. He denies any shortness of breath, cough or congestion. Denies any difficulty swallowing this morning. He is maintaining O2 saturations in the upper 90s on room air. He is afebrile. Hemodynamically stable. The patient is seen today October 12, 2023 in follow-up on the regular medical floor. He is currently resting comfortably in bed. Awake and alert in no acute distress. He is still having ongoing issues with difficulty swallowing pills. He is complaining of a sore throat. CT angiogram ruled out pulmonary embolism. There is left lower lobe airspace opacities with possible developing pneumonia. Mild to moderate emphysema. Left thyroid nodule located in the superior mediastinum. Small hiatal hernia. CT soft tissue neck revealed no definite evidence for abscess or significant abnormality. No lymphadenopathy noted. Thyroid nodule noted in the left superior mediastinum. No new labs today. He remains on his home Xopenex. Remains on Solu-Medrol. Swallow evaluation pending. The patient is seen today October 13, 2023 in follow-up on the regular medical floor. He is currently sitting up in bed. Awake and alert in no acute distress. He is still having some difficulty with swallowing. Fluoroscopy of the upper GI with esophagus has been ordered. He remains on bronchodilators and Solu-Medrol. White count 16.2. Hemoglobin 11.7. Platelets 135. Sodium 144. Potassium 4.0. Bicarb 25. BUN 20. Creatinine 0.7. Glucose 150. Objective - Vital Signs Vital signs: Vital Signs Temp 97.8 F 10/13/23 06:32 Pulse 76 10/13/23 08:20 Resp 16 10/13/23 06:32 BP 141/77 10/13/23 06:32 Pulse Ox 95 10/13/23 06:32 FiO2 Intake & Output 10/12/23 10/13/23 10/13/23 18:59 06:59 18:59 Intake Total 240 Balance 240 Intake: Oral 240 Other: Voiding Method Toilet Toilet # Voids 2 3 - Exam GENERAL EXAM: Alert, 73-year-old male patient, sitting up in bed, on room air, in no apparent distress. HEAD: Normocephalic. EYES: Normal reaction of pupils, equal size. NOSE: Clear with pink turbinates. THROAT: No erythema or exudates. No evidence of yeast. No visible mass. NECK: No masses, no JVD. CHEST: No chest wall deformity. LUNGS: Equal air entry with no crackles, wheeze, rhonchi or dullness. CVS: S1 and S2 normal with no audible murmur, regular rhythm. ABDOMEN: No hepatosplenomegaly, normal bowel sounds, no guarding or rigidity. SPINE: No scoliosis or deformity SKIN: No rashes CENTRAL NERVOUS SYSTEM: No focal deficits, tone is normal in all 4 extremities. EXTREMITIES: There is no peripheral edema. No clubbing, no cyanosis. Anastasiya pheral pulses are intact. - Labs CBC & Chem 7: 10/13/23 06:27 10/13/23 06:27 Labs: Abnormal Lab Results - Last 24 Hours (Table) 10/13/23 10/13/23 Range/Units 06:27 06:27 WBC 16.21 H (4.50-10.00) X 10*3/uL RBC 3.80 L (4.40-5.60) X 10*6/uL Hgb 11.7 L (13.0-17.0) g/dL Hct 35.8 L (39.6-50.0) % RDW 15.9 H (11.5-14.5) % Plt Count 135 L (140-440) X 10*3/uL Immature Gran # 0.07 H (0.00-0.04) X 10*3/uL Neutrophils # 13.41 H (1.80-7.70) X 10*3/uL Chloride 110 H (96-109) mmol/L BUN/Creatinine Ratio 28.00 H (12.00-20.00) Ratio Glucose 150 H (70-110) mg/dL Total Protein 4.7 L (6.2-8.2) g/dL Albumin 3.2 L (3.8-4.9) g/dL Globulin 1.5 L (1.6-3.3) g/dL Assessment and Plan Assessment: Dysphagia secondary to difficulty swallowing a pill. EGD did not reveal any evidence of foreign body Left thyroid nodule measuring 2.9 cm to be followed up in the outpatient setting History of chronic obstructive pulmonary disease, currently inactive and stable History of obstructive pulmonary disease, currently inactive and stable Nonischemic cardiomyopathy History of ventricular tachycardia status post ablation, status post AICD History of congestive heart failure History of previous ventilatory dependent respiratory failure secondary to COPD exacerbations History of brain hemorrhage while on blood thinners Plan: The patient was seen and evaluated Labs and medications reviewed Swallow evaluation pending Stable and on room air Continue bronchodilators and steroids This patient was seen independently by the pulmonary nurse practitioner addressing pulmonary issues I have personally seen and examined the patient, performed the documentation and the assessment and plan as written. Number of minutes spent on the visit: 22.
--- NOTE | 2023-10-13 13:22 | FL ---
EXAMINATION TYPE: FL UGI w esophagus DATE OF EXAM: 10/13/2023 COMPARISON: NONE HISTORY: This TECHNIQUE: A single contrast UGI study is performed. A total of 1 minute 39 seconds of fluoroscopic time was utilized during procedure and he images obtained. Total dose area product (DAP) in uGy*m?, mGy*cm? (or similar): Not provided. FINDINGS: Collateral Clerk image of the abdomen shows no gross abnormality. There was delay in passage of contrast in the stomach secondary to dysmotility and tertiary contracti ons of esophagus.. Small hiatal hernia with no evidence of stricture noted. The stomach shows normal distensibility, peristalsis, and mucosal folds. No evidence of any mass or ulcer disease. Mild gastroesophageal reflux was seen during real time performance of this study. The duodenal bulb, sweep, and proximal small bowel loops are unremarkable. IMPRESSION: 1. Dysmotility with tertiary contractions of esophagus. 2. Small hiatal hernia with mild gastroesophageal reflux. 3. There are a few prominent small bowel loops in the upper abdomen which is a nonspecific finding.
--- NOTE | 2023-10-13 13:33 | P.PN ---
Subjective Progress Note Date: 10/13/23 This is a very pleasant 73-year-old male patient with a known history of nonischemic cardiomyopathy, ventricular tachycardia with previous ablation, AICD placement, hyperlipidemia, former smoker, chronic obstructive pulmonary disease. He presented to the emergency room yesterday after having difficulty swallowing after having a choking episode taking his pills. He did undergo EGD however no foreign body were noted in the esophagus. Following the procedure he was having ongoing issues with excess mucus cough and congestion and ended up being admitted. Soft tissue x-ray revealed suboptimal assessment of the subglottal airway on the frontal view. There nasopharyngeal and oropharyngeal airways domitila eared patent. No convincing radiopaque foreign body noted. CT scan of the brain revealed no acute intracranial process. Remote frontal lobe injury on the left. Angiogram revealed poor delineation of the esophagus at the level of the larynx. No evidence of free air. No organizing fluid outside the lumen. No evidence of dissection of the cervical internal carotids or vertebral arteries are any evidence of significant stenosis. There is a noted left thyroid gland nodule measuring 2.9 cm. White count 17.3. Hemoglobin 13.8. Platelets 139. Sodium 137. Potassium 4.5. BUN 15. Creatinine 0.76. Glucose 173. He is seen today in consultation on the regular medical floor. He is currently resting comfortably in bed. Awake and alert in no acute distress. He denies any shortness of breath, cough or congestion. Denies any difficulty swallowing this morning. He is maintaining O2 saturations in the upper 90s on room air. He is afebrile. Hemodynamically stable. 10/12. Patient seen and examined. CT soft tissue neck showed no definite evidence of abscess or abnormality. CTA chest showed no PE. States he feels slightly better compared to yesterday. Still very hesitant to try to eat. Speech evaluation ordered 10/13. Patient seen and examined. States he feels better compared to yesterday, was able to take his medications with thickener. Scheduled for esophagram today REVIEW OF SYSTEMS: CONSTITUTIONAL: No fever, no malaise,. CARDIOVASCULAR: No chest pain, no palpitations, no syncope. PULMONARY: No shortness of breath, no cough, GASTROINTESTINAL: No diarrhea, no nausea, no vomiting, no abdominal pain. NEUROLOGICAL: No headaches, no weakness, PHYSICAL EXAMINATION: GENERAL: The patient is alert and oriented x3, not in any acute distress. Well developed, well nourished. HEENT: Pupils are round and equally reacting to light. EOMI. No scleral icterus. No conjunctival pallor. Normocephalic, atraumatic. No pharyngeal erythema. No thyromegaly. CARDIOVASCULAR: S1 and S2 present. No murmurs, rubs, or gallops. PULMONARY: Chest is clear to auscultation, no wheezing or crackles. ABDOMEN: Soft, nontender, nondistended, normoactive bowel sounds. No palpable organomegaly. MUSCULOSKELETAL: No joint swelling or deformity. EXTREMITIES: No cyanosis, clubbing, or pedal edema. NEUROLOGICAL: Gross neurological examination did not reveal any focal deficits. SKIN: No rashes. Assessment and plan Dyspnea Pill induced esophagitis Left vertebral artery stenosis Hypertension COPD Left thyroid nodule measuring 2.9 cm to be followed up in the outpatient setting history of chronic obstructive pulmonary disease, currently inactive and stable Nonischemic cardiomyopathy History of ventricular tachycardia status post ablation, status post AICD History of congestive heart failure History of previous ventilatory dependent respiratory failure secondary to COPD exacerbations History of brain hemorrhage while on blood thinners Monitor vital signs Monitor CBC Monitor CMP Continue telemetry monitoring CT soft tissue neck showed no definite evidence of abscess or abnormality. CTA chest showed no PE Continue IV steroids Continue IV Protonix Continue breathing treatment Ordered speech evaluation Surgery consulted for dysphagia, ordered esophagogram Pulmonology following Labs and medication were reviewed.. Continue same treatment. Continue with symptomatic treatment. Resume home medication. Monitor labs and vitals. DVT and GI prophylaxis. Further recommendations as per clinical course of the patient Dictation was produced using [employer] dictation software. please excuse any grammatical, word or spelling errors. Objective - Vital Signs Vital signs: Vital Signs Temp 97.8 F 10/13/23 06:32 Pulse 80 10/13/23 12:11 Resp 16 10/13/23 06:32 BP 141/77 10/13/23 06:32 Pulse Ox 95 10/13/23 06:32 FiO2 Intake & Output 10/12/23 10/13/23 10/13/23 18:59 06:59 18:59 Intake Total 240 Balance 240 Intake: Oral 240 Other: Voiding Method Toilet Toilet # Voids 2 3 - Labs CBC & Chem 7: 10/13/23 06:27 10/13/23 06:27 Labs: Abnormal Lab Results - Last 24 Hours (Table) 10/13/23 10/13/23 Range/Units 06:27 06:27 WBC 16.21 H (4.50-10.00) X 10*3/uL RBC 3.80 L (4.40-5.60) X 10*6/uL Hgb 11.7 L (13.0-17.0) g/dL Hct 35.8 L (39.6-50.0) % RDW 15.9 H (11.5-14.5) % Plt Count 135 L (140-440) X 10*3/uL Immature Gran # 0.07 H (0.00-0.04) X 10*3/uL Neutrophils # 13.41 H (1.80-7.70) X 10*3/uL Chloride 110 H (96-109) mmol/L BUN/Creatinine Ratio 28.00 H (12.00-20.00) Ratio Glucose 150 H (70-110) mg/dL Total Protein 4.7 L (6.2-8.2) g/dL Albumin 3.2 L (3.8-4.9) g/dL Globulin 1.5 L (1.6-3.3) g/dL
--- NOTE | 2023-10-14 10:56 | P.PN ---
Subjective Progress Note Date: 10/14/23 This is a very pleasant 73-year-old male patient with a known history of nonischemic cardiomyopathy, ventricular tachycardia with previous ablation, AICD placement, hyperlipidemia, former smoker, chronic obstructive pulmonary disease. He presented to the emergency room yesterday after having difficulty swallowing after having a choking episode taking his pills. He did undergo EGD however no foreign body were noted in the esophagus. Following the procedure he was having ongoing issues with excess mucus cough and congestion and ended up being admitted. Soft tissue x-ray revealed suboptimal assessment of the subglottal airway on the frontal view. There nasopharyngeal and oropharyngeal airways ap peared patent. No convincing radiopaque foreign body noted. CT scan of the brain revealed no acute intracranial process. Remote frontal lobe injury on the left. Angiogram revealed poor delineation of the esophagus at the level of the larynx. No evidence of free air. No organizing fluid outside the lumen. No evidence of dissection of the cervical internal carotids or vertebral arteries are any evidence of significant stenosis. There is a noted left thyroid gland nodule measuring 2.9 cm. White count 17.3. Hemoglobin 13.8. Platelets 139. Sodium 137. Potassium 4.5. BUN 15. Creatinine 0.76. Glucose 173. He is seen today in consultation on the regular medical floor. He is currently resting comfortably in bed. Awake and alert in no acute distress. He denies any shortness of breath, cough or congestion. Denies any difficulty swallowing this morning. He is maintaining O2 saturations in the upper 90s on room air. He is afebrile. Hemodynamically stable. The patient is seen today October 12, 2023 in follow-up on the regular medical floor. He is currently resting comfortably in bed. Awake and alert in no acute distress. He is still having ongoing issues with difficulty swallowing pills. He is complaining of a sore throat. CT angiogram ruled out pulmonary embolism. There is left lower lobe airspace opacities with possible developing pneumonia. Mild to moderate emphysema. Left thyroid nodule located in the superior mediastinum. Small hiatal hernia. CT soft tissue neck revealed no definite evidence for abscess or significant abnormality. No lymphadenopathy noted. Thyroid nodule noted in the left superior mediastinum. No new labs today. He remains on his home Xopenex. Remains on Solu-Medrol. Swallow evaluation pending. The patient is seen today October 13, 2023 in follow-up on the regular medical floor. He is currently sitting up in bed. Awake and alert in no acute distress. He is still having some difficulty with swallowing. Fluoroscopy of the upper GI with esophagus has been ordered. He remains on bronchodilators and Solu-Medrol. White count 16.2. Hemoglobin 11.7. Platelets 135. Sodium 144. Potassium 4.0. Bicarb 25. BUN 20. Creatinine 0.7. Glucose 150. The patient is seen today October 14, 2023 in follow-up on the regular medical floor. He is currently resting in bed. Awake and alert no acute distress. Maintaining good O2 saturations in the upper 90s on room air. He is afebrile. Hemodynamically stable. He is still having ongoing issues with difficulty in swallowing. Swallow did reveal a delay in passage of contrast in the stomach secondary to dysmotility and tertiary contractions of the esophagus. Small hiatal hernia without stricture. Speech therapy to be working with the patient again today. Objective - Vital Signs Vital signs: Vital Signs Temp 97.4 F L 10/14/23 07:00 Pulse 80 10/14/23 08:43 Resp 16 10/14/23 07:00 BP 147/86 10/14/23 07:00 Pulse Ox 98 10/14/23 08:27 FiO2 Intake & Output 10/13/23 10/14/23 10/14/23 18:59 06:59 18:59 Other: Voiding Method Toilet # Voids 2 1 # Bowel Movements 1 - Exam GENERAL EXAM: Alert, pleasant 73-year-old male patient, sitting up in bed, on room air, in no apparent distress. HEAD: Normocephalic. EYES: Normal reaction of pupils, equal size. NOSE: Clear with pink turbinates. THROAT: No erythema or exudates. No evidence of yeast. No visible mass. NECK: No masses, no JVD. CHEST: No chest wall deformity. LUNGS: Equal air entry with no crackles, wheeze, rhonchi or dullness. CVS: S1 and S2 normal with no audible murmur, regular rhythm. ABDOMEN: No hepatosplenomegaly, normal bowel sounds, no guarding or rigidity. SPINE: No scoliosis or deformity SKIN: No rashes CENTRAL NERVOUS SYSTEM: No focal deficits, tone is normal in all 4 extremities. EXTREMITIES: There is no peripheral edema. No clubbing, no cyanosis. Peripheral pulses are intact. - Labs CBC & Chem 7: 10/13/23 06:27 10/13/23 06:27 Labs: Abnormal Lab Results - Last 24 Hours (Table) 10/13/23 10/13/23 Range/Units 06:27 06:27 WBC 16.21 H (4.50-10.00) X 10*3/uL RBC 3.80 L (4.40-5.60) X 10*6/uL Hgb 11.7 L (13.0-17.0) g/dL Hct 35.8 L (39.6-50.0) % RDW 15.9 H (11.5-14.5) % Plt Count 135 L (140-440) X 10*3/uL Immature Gran # 0.07 H (0.00-0.04) X 10*3/uL Neutrophils # 13.41 H (1.80-7.70) X 10*3/uL Chloride 110 H (96-109) mmol/L BUN/Creatinine Ratio 28.00 H (12.00-20.00) Ratio Glucose 150 H (70-110) mg/dL Total Protein 4.7 L (6.2-8.2) g/dL Albumin 3.2 L (3.8-4.9) g/dL Globulin 1.5 L (1.6-3.3) g/dL Assessment and Plan Assessment: Dysphagia secondary to difficulty swallowing a pill. EGD did not reveal any evidence of foreign body. Barium swallow reported dysmotility with tertiary contractions of the esophagus. Small hiatal hernia with mild gastroesophageal reflux disease. No surgical intervention planned. To be working with speech therapy. Left thyroid nodule measuring 2.9 cm to be followed up in the outpatient setting History of chronic obstructive pulmonary disease, currently inactive and stable History of obstructive pulmonary disease, currently inactive and stable Nonischemic cardiomyopathy History of ventricular tachycardia status post ablation, status post AICD History of congestive heart failure History of previous ventilatory dependent respiratory failure secondary to COPD exacerbations History of brain hemorrhage while on blood thinners Plan: The patient was seen and evaluated Upper GI series and medications reviewed Swallow evaluation pending If ongoing issues with dysphagia may require PEG tube placed Continue bronchodilators Discontinue Solu-Medrol Currently stable and on room air This patient was seen independently by the pulmonary nurse practitioner addressing pulmonary issues I have personally seen and examined the patient, performed the documentation and the assessment and plan as written. Number of minutes spent on the visit: 24.
--- NOTE | 2023-10-14 11:30 | FL ---
COMPARISON: NONE DATE OF EXAM: 10/14/2023 HISTORY: Dysphasia A number of thin and thick substances were ingested under the care of the department of speech pathol ogy. There is evidence of aspiration and penetration with all substances. A reduced pharyngeal contr action and vallecular\piriform sinus contrast pooling. 1 minute and 39 seconds of fluoroscopy. No images submitted. DAP not provided. IMPRESSION: 1. Aspiration and penetration on all substances.
--- NOTE | 2023-10-14 14:59 | P.PN ---
Subjective Progress Note Date: 10/14/23 CHIEF COMPLAINT: Dysphagia HISTORY OF PRESENT ILLNESS: Patient failed swallow eval with speech therapy. Patient reports that he was even spitting up the barium contrast from the upper GI yesterday. Upper GI reported dysmotility with tertiary contractions of esophagus. Small hiatal hernia with mild GERD. There are few prominent small bowel bowel loops in the upper abdomen which is nonspecific finding. PHYSICAL EXAM: VITAL SIGNS: Reviewed. GENERAL: Well-developed in no acute distress. ABDOMEN: Soft. Nondistended. Nontender. NEUROLOGIC: Alert and oriented. Cranial nerves II through XII grossly intact. ASSESSMENT: 1. Dysphagia 2. Dysmotility disorder of the esophagus PLAN: -Patient scheduled for EGD with PEG tube placement tomorrow with Dr. Castillo -Keep patient n.p.o. -Discussed procedure with patient at bedside. All questions were answered to the best my ability. Patient is agreeable to proceed with PEG tube placement tomorrow Physician Electrical Maintenance Supervisor note has been reviewed by physician. Signing provider agrees with the documented findings, assessment, and plan of care. Objective - Vital Signs Vital signs: Vital Signs Temp 98.4 F 10/14/23 14:00 Pulse 79 10/14/23 14:00 Resp 16 10/14/23 14:00 BP 156/81 10/14/23 14:00 Pulse Ox 95 10/14/23 14:00 FiO2 Intake & Output 10/13/23 10/14/23 10/14/23 18:59 06:59 18:59 Other: Voiding Method Toilet # Voids 2 1 # Bowel Movements 1 - Labs CBC & Chem 7: 10/13/23 06:27 10/13/23 06:27
--- NOTE | 2023-10-14 21:15 | P.PN ---
Subjective Progress Note Date: 10/14/23 This is a very pleasant 73-year-old male patient with a known history of nonischemic cardiomyopathy, ventricular tachycardia with previous ablation, AICD placement, hyperlipidemia, former smoker, chronic obstructive pulmonary disease. He presented to the emergency room yesterday after having difficulty swallowing after having a choking episode taking his pills. He did undergo EGD however no foreign body were noted in the esophagus. Following the procedure he was having ongoing issues with excess mucus cough and congestion and ended up being admitted. Soft tissue x-ray revealed suboptimal assessment of the subglottal airway on the frontal view. There nasopharyngeal and oropharyngeal airways appeared patent. No convincing radiopaque foreign body noted. CT scan of the brain revealed no acute intracranial process. Remote frontal lobe injury on the left. Angiogram revealed poor delineation of the esophagus at the level of the larynx. No evidence of free air. No organizing fluid outside the lumen. No evidence of dissection of the cervical internal carotids or vertebral arteries are any evidence of significant stenosis. There is a noted left thyroid gland nodule measuring 2.9 cm. White count 17.3. Hemoglobin 13.8. Platelets 139. Sodium 137. Potassium 4.5. BUN 15. Creatinine 0.76. Glucose 173. He is seen today in consultation on the regular medical floor. He is currently resting comfortably in bed. Awake and alert in no acute distress. He denies any shortness of breath, cough or congestion. Denies any difficulty swallowing this morning. He is maintaining O2 saturations in the upper 90s on room air. He is afebrile. Hemodynamically stable. 10/12. Patient seen and examined. CT soft tissue neck showed no definite evidence of abscess or abnormality. CTA chest showed no PE. States he feels slightly better compared to yesterday. Still very hesitant to try to eat. Speech evaluation ordered 10/13. Patient seen and examined. States he feels better compared to yesterday, was able to take his medications with thickener. Scheduled for esophagram today 10/14/2023 Patient is seen and evaluated in follow-up today and is being followed by general surgery. Patient was evaluated initially by GI underwent EGD with no obvious abnormalities noted. Patient continues to be followed by general surgery as patient reports continuing to have difficulty swallowing and not tolerating pills or oral intake. Patient underwent upper GI series and evaluated by speech scheduled to undergo modified barium swallow study today. Patient reports to having an episode of feeling as if he was vomiting and choking throughout the night requiring suctioning frequently. Patient currently NPO. Continue strict aspiration precautions. Patient also being followed by pulmonary maintained on breathing treatments for acute COPD exacerbation. REVIEW OF SYSTEMS: CONSTITUTIONAL: No fever, no malaise,. CARDIOVASCULAR: No chest pain, no palpitations, no syncope. PULMONARY: No shortness of breath, no cough, GASTROINTESTINAL: No diarrhea, no nausea, no vomiting, no abdominal pain. NEUROLOGICAL: No headaches, no weakness, PHYSICAL EXAMINATION: GENERAL: The patient is alert and oriented x3, not in any acute distress. Well developed, well nourished. HEENT: Pupils are round and equally reacting to light. EOMI. No scleral icterus. No conjunctival pallor. Normocephalic, atraumatic. No pharyngeal erythema. No thyromegaly. CARDIOVASCULAR: S1 and S2 present. No murmurs, rubs, or gallops. PULMONARY: Chest is clear to auscultation, no wheezing or crackles. ABDOMEN: Soft, nontender, nondistended, normoactive bowel sounds. No palpable organomegaly. MUSCULOSKELETAL: No joint swelling or deformity. EXTREMITIES: No cyanosis, clubbing, or pedal edema. NEUROLOGICAL: Gross neurological examination did not reveal any focal deficits. SKIN: No rashes. Assessment: Dyspnea, multifactorial likely secondary to COPD exacerbation as well as concerns of aspiration Pill induced esophagitis Dysphagia with silent aspiration noted on modified barium swallow, recommending strict n.p.o. Left vertebral artery stenosis Hypertension COPD, acute exacerbation Left thyroid nodule measuring 2.9 cm to be followed up in the outpatient setting Nonischemic cardiomyopathy History of ventricular tachycardia status post ablation, status post AICD History of congestive heart failure, not in exacerbation History of previous ventilatory dependent respiratory failure secondary to COPD exacerbations 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 Speech therapy recommending strict n.p.o. Lengthy discussion was had with the patient about overall oral intake and lack of being able to take medications with significant history recommending PEG tube. Patient is agreeable to discuss with general surgery about this option. Continue n.p.o. and aspiration precautions with head of the bed elevated 30 to 45 degrees at all times Continue current medication regimen Plan is tentatively scheduled for PEG tube placement tomorrow with general surgery Due to multiple complex medical issues, prognosis is guarded Encouraged increase activity as tolerated The impression and plan of care has been dictated by Damaris Treadwell, Nurse Practitioner as directed. Dr. Zi MD I have performed a history and examination and MDM of this patient, discussed the same with the dictator, and agree with the dictator's assessment and plan as written ,documented as a scribe. Based on total visit time, I have performed more than 50% of the visit. Objective - Vital Signs Vital signs: Vital Signs Temp 98.4 F 10/14/23 14:00 Pulse 79 10/14/23 14:00 Resp 16 10/14/23 14:00 BP 156/81 10/14/23 14:00 Pulse Ox 95 10/14/23 14:00 FiO2 Intake & Output 10/13/23 10/14/23 10/14/23 18:59 06:59 18:59 Other: Voiding Method Toilet # Voids 2 1 # Bowel Movements 1 - Labs CBC & Chem 7: 10/13/23 06:27 10/13/23 06:27
[2023-10-15] MEDS: methylPREDNISolone SOD SUCCI 40 MG/ML 1 ML VIAL IV SCH (10:26)
--- NOTE | 2023-10-15 11:37 | P.PN ---
Subjective Progress Note Date: 10/15/23 This is a very pleasant 73-year-old male patient with a known history of nonischemic cardiomyopathy, ventricular tachycardia with previous ablation, AICD placement, hyperlipidemia, former smoker, chronic obstructive pulmonary disease. He presented to the emergency room yesterday after having difficulty swallowing after having a choking episode taking his pills. He did undergo EGD however no foreign body were noted in the esophagus. Following the procedure he was having ongoing issues with excess mucus cough and congestion and ended up being admitted. Soft tissue x-ray revealed suboptimal assessment of the subglottal airway on the frontal view. There nasopharyngeal and oropharyngeal airways ap peared patent. No convincing radiopaque foreign body noted. CT scan of the brain revealed no acute intracranial process. Remote frontal lobe injury on the left. Angiogram revealed poor delineation of the esophagus at the level of the larynx. No evidence of free air. No organizing fluid outside the lumen. No evidence of dissection of the cervical internal carotids or vertebral arteries are any evidence of significant stenosis. There is a noted left thyroid gland nodule measuring 2.9 cm. White count 17.3. Hemoglobin 13.8. Platelets 139. Sodium 137. Potassium 4.5. BUN 15. Creatinine 0.76. Glucose 173. He is seen today in consultation on the regular medical floor. He is currently resting comfortably in bed. Awake and alert in no acute distress. He denies any shortness of breath, cough or congestion. Denies any difficulty swallowing this morning. He is maintaining O2 saturations in the upper 90s on room air. He is afebrile. Hemodynamically stable. The patient is seen today October 12, 2023 in follow-up on the regular medical floor. He is currently resting comfortably in bed. Awake and alert in no acute distress. He is still having ongoing issues with difficulty swallowing pills. He is complaining of a sore throat. CT angiogram ruled out pulmonary embolism. There is left lower lobe airspace opacities with possible developing pneumonia. Mild to moderate emphysema. Left thyroid nodule located in the superior mediastinum. Small hiatal hernia. CT soft tissue neck revealed no definite evidence for abscess or significant abnormality. No lymphadenopathy noted. Thyroid nodule noted in the left superior mediastinum. No new labs today. He remains on his home Xopenex. Remains on Solu-Medrol. Swallow evaluation pending. The patient is seen today October 13, 2023 in follow-up on the regular medical floor. He is currently sitting up in bed. Awake and alert in no acute distress. He is still having some difficulty with swallowing. Fluoroscopy of the upper GI with esophagus has been ordered. He remains on bronchodilators and Solu-Medrol. White count 16.2. Hemoglobin 11.7. Platelets 135. Sodium 144. Potassium 4.0. Bicarb 25. BUN 20. Creatinine 0.7. Glucose 150. The patient is seen today October 14, 2023 in follow-up on the regular medical floor. He is currently resting in bed. Awake and alert no acute distress. Maintaining good O2 saturations in the upper 90s on room air. He is afebrile. Hemodynamically stable. He is still having ongoing issues with difficulty in swallowing. Swallow did reveal a delay in passage of contrast in the stomach secondary to dysmotility and tertiary contractions of the esophagus. Small hiatal hernia without stricture. Speech therapy to be working with the patient again today. The patient is seen today October 15, 2023 in follow-up on the regular medical floor. He is resting in bed. Awake and alert in no acute distress. He continues to maintain good O2 saturations in the 90s on room air. Unfortunately he is still unable to have any effective swallow. Speech therapy evaluated him yesterday. The patient is aspirating. PEG tube recommendations were made and the plan is for PEG tube insertion today. He remains on bronchodilators, Solu- Medrol, Singulair. 0.45% normal saline at 75 MLS per hour. Objective - Vital Signs Vital signs: Vital Signs Temp 98.3 F 10/15/23 07:10 Pulse 78 10/15/23 08:20 Resp 16 10/15/23 07:10 BP 158/87 10/15/23 07:10 Pulse Ox 95 10/15/23 08:09 FiO2 Intake & Output 10/14/23 10/15/23 10/15/23 18:59 06:59 18:59 Other: Voiding Method Toilet # Voids 2 2 - Exam GENERAL EXAM: Alert, pleasant 73-year-old male patient, suctioning his own oral secretions, on room air, in no apparent distress. HEAD: Normocephalic. EYES: Normal reaction of pupils, equal size. NOSE: Clear with pink turbinates. THROAT: No erythema or exudates. No evidence of yeast. No visible mass. NECK: No masses, no JVD. CHEST: No chest wall deformity. LUNGS: Equal air entry with no crackles, wheeze, rhonchi or dullness. CVS: S1 and S2 normal with no audible murmur, regular rhythm. ABDOMEN: No hepatosplenomegaly, normal bowel sounds, no guarding or rigidity. SPINE: No scoliosis or deformity SKIN: No rashes CENTRAL NERVOUS SYSTEM: No focal deficits, tone is normal in all 4 extremities. EXTREMITIES: There is no peripheral edema. No clubbing, no cyanosis. Peripheral pulses are intact. - Labs CBC & Chem 7: 10/13/23 06:27 10/13/23 06:27 Assessment and Plan Assessment: Dysphagia secondary to difficulty swallowing a pill. EGD did not reveal any evidence of foreign body. Barium swallow reported dysmotility with tertiary co ntractions of the esophagus. Small hiatal hernia with mild gastroesophageal reflux disease. No surgical intervention planned. The patient was having aspiration while working with speech therapy and PEG tube placement was recommended. Plan is for PEG tube placement today. 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 Number of minutes spent on the visit: 25.
--- NOTE | 2023-10-15 14:59 | P.PN ---
Subjective Progress Note Date: 10/15/23 CHIEF COMPLAINT: Dysphagia HISTORY OF PRESENT ILLNESS: Patient failed swallow eval with speech therapy. Patient scheduled for PEG tube placement today. Afebrile. PHYSICAL EXAM: VITAL SIGNS: Reviewed. GENERAL: Well-developed in no acute distress. ABDOMEN: Soft. Nondistended. Nontender. NEUROLOGIC: Alert and oriented. Cranial nerves II through XII grossly intact. ASSESSMENT: 1. Dysphagia 2. Dysmotility disorder of the esophagus PLAN: -Patient scheduled for EGD with PEG tube placement today with Dr. Castillo -Keep patient n.p.o. -Check labs for today Physician Administrative Support Manager note has been reviewed by physician. Signing provider agrees with the documented findings, assessment, and plan of care. Objective - Vital Signs Vital signs: Vital Signs Temp 98.1 F 10/15/23 13:53 Pulse 75 10/15/23 13:53 Resp 16 10/15/23 13:53 BP 150/78 10/15/23 13:53 Pulse Ox 95 10/15/23 13:53 FiO2 Intake & Output 10/14/23 10/15/23 10/15/23 18:59 06:59 18:59 Other: Voiding Method Toilet # Voids 2 2 - Labs CBC & Chem 7: 10/13/23 06:27 10/13/23 06:27
[2023-10-15 16:06] LABS: HCT 39.8 % (39.0-53.0); HGB 13.4 gm/dL (13.0-17.5); MCH 31.9 pg (25.0-35.0); MCHC 33.6 g/dL (31.0-37.0); MCV 94.7 fL (80.0-100.0); Mean Platelet Volume 8.2; Platelet Count 123 k/uL (150-450); RDW 14.9 % (11.5-15.5); WBC 14.1 k/uL (3.8-10.6)
[2023-10-15] MEDS ORDERED: PROPOFOL 10 MG/ML 20 ML VIAL IV ONE (16:11)
[2023-10-15] MEDS ORDERED: LIDOCAINE 1% INJ 10MG/ML (20 ML MDV) ONE (16:11)
[2023-10-15] MEDS: IV FLUID CONTINUATION 1,000 ML IV ONE (16:13)
[2023-10-15 16:16] LABS: African American GFR (CKD) >90 (>60 ml/min/1.73 sqM); Anion Gap 5 mmol/L; Blood Urea Nitrogen 21 mg/dL (9-20); Calcium 8.3 mg/dL (8.4-10.2); Carbon Dioxide 25 mmol/L (22-30); Chloride 110 mmol/L (98-107); Glucose 111 mg/dL (74-99); Non-African American GFR(CKD) >90 (>60 ml/min/1.73 sqM); Sodium 140 mmol/L (137-145)
[2023-10-15 16:21] LABS: Potassium 3.8 mmol/L (3.5-5.1)
--- NOTE | 2023-10-15 16:27 | P.OP ---
Date of Procedure: 10/15/23 Preoperative Diagnosis: Dysphagia Malnutrition Postoperative Diagnosis: Dysphagia Malnutrition Procedure(s) Performed: EGD with PEG tube placement Anesthesia: MAC Surgeon: Bassam Castillo Pathology: none sent Condition: stable Disposition: PACU Description of Procedure: The patient received IV sedation. Next the gastroscope placed oropharynx passed in the esophagus and stomach. There is no evidence of any outlet obstruction. Stomach was insufflated with air. The light reflux seen the anterior abdominal wall. The abdomen was prepped and draped usual fashion. The skin was incised. And the needles placed and stomach under direct visualization. The needle was snared. And the wires placed through the needle and the wire was snared and brought the oropharynx. The PEG tube was placed over top the wire brought down to the stomach. The PEG tube was secured. At the 3 cm yanelis. The one-piece bolster was used. Patient tolerated procedure well.
[2023-10-15] MEDS: ACETAMINOPHEN IV (For NPO) 1,000 MG in EMPTY BAG 1 BAG IVPB ONE (18:27)
[2023-10-15] MEDS: SYMBICORT 160-4.5 MCG INHALER INHALATION SCH (20:59)
[2023-10-16] MEDS: ACETAMINOPHEN IV (For NPO) 1,000 MG in EMPTY BAG 1 BAG IVPB ONE (04:02)
--- NOTE | 2023-10-16 05:59 | P.PN ---
Subjective Progress Note Date: 10/15/23 This is a very pleasant 73-year-old male patient with a known history of nonischemic cardiomyopathy, ventricular tachycardia with previous ablation, AICD placement, hyperlipidemia, former smoker, chronic obstructive pulmonary disease. He presented to the emergency room yesterday after having difficulty swallowing after having a choking episode taking his pills. He did undergo EGD however no foreign body were noted in the esophagus. Following the procedure he was having ongoing issues with excess mucus cough and congestion and ended up being admitted. Soft tissue x-ray revealed suboptimal assessment of the subglottal airway on the frontal view. There nasopharyngeal and oropharyngeal airways appeared patent. No convincing radiopaque foreign body noted. CT scan of the brain revealed no acute intracranial process. Remote frontal lobe injury on the left. Angiogram revealed poor delineation of the esophagus at the level of the larynx. No evidence of free air. No organizing fluid outside the lumen. No evidence of dissection of the cervical internal carotids or vertebral arteries are any evidence of significant stenosis. There is a noted left thyroid gland nodule measuring 2.9 cm. White count 17.3. Hemoglobin 13.8. Platelets 139. Sodium 137. Potassium 4.5. BUN 15. Creatinine 0.76. Glucose 173. He is seen today in consultation on the regular medical floor. He is currently resting comfortably in bed. Awake and alert in no acute distress. He denies any shortness of breath, cough or congestion. Denies any difficulty swallowing this morning. He is maintaining O2 saturations in the upper 90s on room air. He is afebrile. Hemodynamically stable. 10/12. Patient seen and examined. CT soft tissue neck showed no definite evidence of abscess or abnormality. CTA chest showed no PE. States he feels slightly better compared to yesterday. Still very hesitant to try to eat. Speech evaluation ordered 10/13. Patient seen and examined. States he feels better compared to yesterday, was able to take his medications with thickener. Scheduled for esophagram today 10/14/2023 Patient is seen and evaluated in follow-up today and is being followed by general surgery. Patient was evaluated initially by GI underwent EGD with no obvious abnormalities noted. Patient continues to be followed by general surgery as patient reports continuing to have difficulty swallowing and not tolerating pills or oral intake. Patient underwent upper GI series and evaluated by speech scheduled to undergo modified barium swallow study today. Patient reports to having an episode of feeling as if he was vomiting and choking throughout the night requiring suctioning frequently. Patient currently NPO. Continue strict aspiration precautions. Patient also being followed by pulmonary maintained on breathing treatments for acute COPD exacerbation. 10/15/2023 Patient is seen in follow-up today reports he continues to feel terrible as he is unable to eat anything and not sleeping very well reports he has to continuously suction secretions from his mouth. Patient is being followed by pulmonary as well is being restarted on IV steroids as patient does have expiratory wheezing noted and continues with acute COPD exacerbation. General surgery following as well plans for PEG tube placement today. Patient was evaluated by speech and grossly aspirating and patient is agreeable to PEG tube. Dietary will be consulted as well as case management on arrangements for disch arge planning for tube feeds. Patient is afebrile with no reports of chest pain or palpitations. Encouraged increased activity as tolerated as patient has been mostly lying in the bed. Will await surgical report and initiate tube feeds and PEG tube use once cleared by surgery. REVIEW OF SYSTEMS: CONSTITUTIONAL: No fever, no malaise,. CARDIOVASCULAR: No chest pain, no palpitations, no syncope. PULMONARY: Reports of continued shortness of breath with cough, and excess amounts of sputum GASTROINTESTINAL: No diarrhea, no nausea, no vomiting, no abdominal pain. NEUROLOGICAL: No headaches, no weakness, PHYSICAL EXAMINATION: GENERAL: The patient is alert and oriented x3, not in any acute distress. Well developed, well nourished. Elderly appearing HEENT: Pupils are round and equally reacting to light. EOMI. No scleral icterus. No conjunctival pallor. Normocephalic, atraumatic. No pharyngeal erythema. No thyromegaly. CARDIOVASCULAR: S1 and S2 present. No murmurs, rubs, or gallops. PULMONARY: Diminished breath sounds bilaterally with some scattered expiratory wheezing noted. Nonretracting and no accessory muscle use ABDOMEN: Soft, nontender, nondistended, normoactive bowel sounds. No palpable organomegaly. MUSCULOSKELETAL: No joint swelling or deformity. EXTREMITIES: No cyanosis, clubbing, or pedal edema. NEUROLOGICAL: Gross neurological examination did not reveal any focal deficits. SKIN: No rashes. Assessment: Dyspnea, multifactorial likely secondary to COPD exacerbation as well as concerns of aspiration Pill induced esophagitis Dysphagia with silent aspiration noted on modified barium swallow, awaiting to receive a PEG tube today Left vertebral artery stenosis history Hypertension COPD, acute exacerbation Left thyroid nodule measuring 2.9 cm to be followed up in the outpatient setting Nonischemic cardiomyopathy History of ventricular tachycardia status post ablation, status post AICD History of congestive heart failure, not in exacerbation History of previous ventilatory dependent respiratory failure secondary to COPD exacerbations 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 Speech therapy recommending strict n.p.o. Lengthy discussion was had with the patient about overall oral intake and lack of being able to take medications with significant history recommending PEG tube. Patient is agreeable and general surgery following with plans of PEG tube today. Will await surgical report and clearance from surgery to initiate tube feedings and using the PEG tube for medications. Resume home medications once cleared by surgery Continue n.p.o. and aspiration precautions with head of the bed elevated 30 to 45 degrees at all times Continue current medication regimen Pulmonary following as well for COPD exacerbation and patient is being restarted on IV steroids as there is some wheezing noted. Continue breathing treatments and supplemental oxygen as needed. Wean FiO2 as tolerated Consult to case management/social work arranging for discharge planning as patient will be needing tube feedings Due to multiple complex medical issues, prognosis is guarded Encouraged increase activity as tolerated The impression and plan of care has been dictated by Damaris Treadwell, Nurse Practitioner as directed. Dr. Zi MD I have performed a history and examination and MDM of this patient, discussed the same with the dictator, and agree with the dictator's assessment and plan as written ,documented as a scribe. Based on total visit time, I have performed more than 50% of the visit. Objective - Vital Signs Vital signs: Vital Signs Temp 98.3 F 10/16/23 01:26 Pulse 84 10/16/23 01:26 Resp 18 10/16/23 01:26 BP 118/71 10/16/23 01:26 Pulse Ox 94 L 10/16/23 01:26 FiO2 Intake & Output 10/15/23 10/15/23 10/16/23 06:59 18:59 06:59 Intake Total 250 Output Total 500 Balance 250 -500 Intake: IV 250 Output: Urine 500 Other: Voiding Method Toilet Toilet Urinal # Voids 2 2 - Labs CBC & Chem 7: 10/15/23 15:42 10/15/23 15:42 Labs: Abnormal Lab Results - Last 24 Hours (Table) 10/15/23 10/15/23 Range/Units 15:42 15:42 WBC 14.1 H (3.8-10.6) k/uL RBC 4.20 L (4.30-5.90) m/uL Plt Count 123 L (150-450) k/uL Chloride 110 H (98-107) mmol/L BUN 21 H (9-20) mg/dL Creatinine 0.57 L (0.66-1.25) mg/dL Glucose 111 H (74-99) mg/dL Calcium 8.3 L (8.4-10.2) mg/dL
[2023-10-16 11:03] LABS: BUN/Creat Ratio 29.29 Ratio (12.00-20.00); Blood Urea Nitrogen 20.5 mg/dL (9.0-27.0); Calcium 8.5 mg/dL (8.7-10.3); Carbon Dioxide 26.3 mmol/L (21.6-31.8); Chloride 105 mmol/L (96-109); Glucose 121 mg/dL (70-110); Potassium 3.8 mmol/L (3.5-5.5); Sodium 144 mmol/L (135-145)
--- NOTE | 2023-10-16 11:40 | P.PN ---
Subjective Progress Note Date: 10/16/23 This is a very pleasant 73-year-old male patient with a known history of nonischemic cardiomyopathy, ventricular tachycardia with previous ablation, AICD placement, hyperlipidemia, former smoker, chronic obstructive pulmonary disease. He presented to the emergency room yesterday after having difficulty swallowing after having a choking episode taking his pills. He did undergo EGD however no foreign body were noted in the esophagus. Following the procedure he was having ongoing issues with excess mucus cough and congestion and ended up being admitted. Soft tissue x-ray revealed suboptimal assessment of the subglottal airway on the frontal view. There nasopharyngeal and oropharyngeal airways ap peared patent. No convincing radiopaque foreign body noted. CT scan of the brain revealed no acute intracranial process. Remote frontal lobe injury on the left. Angiogram revealed poor delineation of the esophagus at the level of the larynx. No evidence of free air. No organizing fluid outside the lumen. No evidence of dissection of the cervical internal carotids or vertebral arteries are any evidence of significant stenosis. There is a noted left thyroid gland nodule measuring 2.9 cm. White count 17.3. Hemoglobin 13.8. Platelets 139. Sodium 137. Potassium 4.5. BUN 15. Creatinine 0.76. Glucose 173. He is seen today in consultation on the regular medical floor. He is currently resting comfortably in bed. Awake and alert in no acute distress. He denies any shortness of breath, cough or congestion. Denies any difficulty swallowing this morning. He is maintaining O2 saturations in the upper 90s on room air. He is afebrile. Hemodynamically stable. The patient is seen today October 12, 2023 in follow-up on the regular medical floor. He is currently resting comfortably in bed. Awake and alert in no acute distress. He is still having ongoing issues with difficulty swallowing pills. He is complaining of a sore throat. CT angiogram ruled out pulmonary embolism. There is left lower lobe airspace opacities with possible developing pneumonia. Mild to moderate emphysema. Left thyroid nodule located in the superior mediastinum. Small hiatal hernia. CT soft tissue neck revealed no definite evidence for abscess or significant abnormality. No lymphadenopathy noted. Thyroid nodule noted in the left superior mediastinum. No new labs today. He remains on his home Xopenex. Remains on Solu-Medrol. Swallow evaluation pending. The patient is seen today October 13, 2023 in follow-up on the regular medical floor. He is currently sitting up in bed. Awake and alert in no acute distress. He is still having some difficulty with swallowing. Fluoroscopy of the upper GI with esophagus has been ordered. He remains on bronchodilators and Solu-Medrol. White count 16.2. Hemoglobin 11.7. Platelets 135. Sodium 144. Potassium 4.0. Bicarb 25. BUN 20. Creatinine 0.7. Glucose 150. The patient is seen today October 14, 2023 in follow-up on the regular medical floor. He is currently resting in bed. Awake and alert no acute distress. Maintaining good O2 saturations in the upper 90s on room air. He is afebrile. Hemodynamically stable. He is still having ongoing issues with difficulty in swallowing. Swallow did reveal a delay in passage of contrast in the stomach secondary to dysmotility and tertiary contractions of the esophagus. Small hiatal hernia without stricture. Speech therapy to be working with the patient again today. The patient is seen today October 15, 2023 in follow-up on the regular medical floor. He is resting in bed. Awake and alert in no acute distress. He continues to maintain good O2 saturations in the 90s on room air. Unfortunately he is still unable to have any effective swallow. Speech therapy evaluated him yesterday. The patient is aspirating. PEG tube recommendations were made and the plan is for PEG tube insertion today. He remains on bronchodilators, Solu- Medrol, Singulair. 0.45% normal saline at 75 MLS per hour. The patient is seen today October 16, 2023 in follow-up on the regular medical floor. He is awake and alert in no acute distress. Sitting up in a chair at the bedside. Maintaining good O2 saturations in the 90s on room air. He has 0.45 normal saline at 75 MLS per hour. He did receive a PEG tube placement yesterday. To be initiated on tube feedings later this afternoon. Sodium 144. Potassium 3.8. Bicarb 26. BUN 21. Creatinine 0.7. Glucose 121. He remains on Symbicort, Xopenex, Singulair and Solu-Medrol. Objective - Vital Signs Vital signs: Vital Signs Temp 97.6 F 10/16/23 08:00 Pulse 86 10/16/23 08:57 Resp 16 10/16/23 08:00 BP 138/80 10/16/23 08:00 Pulse Ox 94 L 10/16/23 08:00 FiO2 Intake & Output 10/15/23 10/16/23 10/16/23 18:59 06:59 18:59 Intake Total 250 Output Total 500 Balance 250 -500 Intake: IV 250 Output: Urine 500 Other: Voiding Method Toilet Toilet Urinal Urinal # Voids 2 - Exam GENERAL EXAM: Awake, alert 73-year-old male patient, up in a chair, on 2 liters nasal cannula, in no apparent distress. HEAD: Normocephalic. EYES: Normal reaction of pupils, equal size. NOSE: Clear with pink turbinates. THROAT: No erythema or exudates. No evidence of yeast. No visible mass. NECK: No masses, no JVD. CHEST: No chest wall deformity. LUNGS: Equal air entry with no crackles, wheeze, rhonchi or dullness. CVS: S1 and S2 normal with no audible murmur, regular rhythm. ABDOMEN: PEG tube exit site clean and dry. No hepatosplenomegaly, normal bowel sounds, no guarding or rigidity. SPINE: No scoliosis or deformity SKIN: No rashes CENTRAL NERVOUS SYSTEM: No focal deficits, tone is normal in all 4 extremities. EXTREMITIES: There is no peripheral edema. No clubbing, no cyanosis. Peripheral pulses are intact. - Labs CBC & Chem 7: 10/15/23 15:42 10/16/23 05:56 Labs: Abnormal Lab Results - Last 24 Hours (Table) 10/15/23 10/15/23 10/16/23 Range/Units 15:42 15:42 05:56 WBC 14.1 H (3.8-10.6) k/uL RBC 4.20 L (4.30-5.90) m/uL Plt Count 123 L (150-450) k/uL Chloride 110 H (98-107) mmol/L Anion Gap 12.70 H (4.00-12.00) mmol/L BUN 21 H (9-20) mg/dL Creatinine 0.57 L (0.66-1.25) mg/dL BUN/Creatinine Ratio 29.29 H (12.00-20.00) Ratio Glucose 111 H 121 H (74-99) mg/dL Calcium 8.3 L 8.5 L (8.4-10.2) mg/dL Assessment and Plan Assessment: Dysphagia secondary to difficulty swallowing a pill. EGD did not reveal any evidence of foreign body. Barium swallow reported dysmotility with tertiary contractions of the esophagus. Small hiatal hernia with mild gastroesophageal reflux disease. No surgical intervention planned. The patient was having aspiration while working with speech therapy and PEG tube placement was recommended. PEG tube placed October 15, 2023. 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 Number of minutes spent on the visit: 23.
[2023-10-16] MEDS: ACETAMINOPHEN IV (For NPO) 1,000 MG in EMPTY BAG 1 BAG IVPB PRN (11:48)
--- NOTE | 2023-10-16 14:20 | P.PN ---
Subjective Progress Note Date: 10/16/23 CHIEF COMPLAINT: Dysphagia HISTORY OF PRESENT ILLNESS: Patient status post PEG tube placement. Denies any abdominal pain. Denies any nausea or vomiting. PHYSICAL EXAM: VITAL SIGNS: Reviewed. GENERAL: Well-developed in no acute distress. ABDOMEN: Soft. Nondistended. PEG tube site clean dry and intact NEUROLOGIC: Alert and oriented. Cranial nerves II through XII grossly intact. ASSESSMENT: 1. Dysphagia 2. Dysmotility disorder of the esophagus PLAN: -Consult dietitian to start tube feeds later this afternoon -Okay to place meds down PEG tube Physician Gender Studies Professor note has been reviewed by physician. Signing provider agrees with the documented findings, assessment, and plan of care. Objective - Vital Signs Vital signs: Vital Signs Temp 97.6 F 10/16/23 08:00 Pulse 88 10/16/23 12:26 Resp 16 10/16/23 08:00 BP 128/63 10/16/23 12:26 Pulse Ox 94 L 10/16/23 08:00 FiO2 Intake & Output 10/15/23 10/16/23 10/16/23 18:59 06:59 18:59 Intake Total 250 Output Total 500 Balance 250 -500 Weight 78.6 kg Intake: IV 250 Output: Urine 500 Other: Voiding Method Toilet Toilet Urinal Urinal # Voids 2 - Labs CBC & Chem 7: 10/15/23 15:42 10/16/23 05:56 Labs: Abnormal Lab Results - Last 24 Hours (Table) 10/15/23 10/15/23 10/16/23 Range/Units 15:42 15:42 05:56 WBC 14.1 H (3.8-10.6) k/uL RBC 4.20 L (4.30-5.90) m/uL Plt Count 123 L (150-450) k/uL Chloride 110 H (98-107) mmol/L Anion Gap 12.70 H (4.00-12.00) mmol/L BUN 21 H (9-20) mg/dL Creatinine 0.57 L (0.66-1.25) mg/dL BUN/Creatinine Ratio 29.29 H (12.00-20.00) Ratio Glucose 111 H 121 H (74-99) mg/dL Calcium 8.3 L 8.5 L (8.4-10.2) mg/dL
--- NOTE | 2023-10-16 23:47 | P.PN ---
Subjective Progress Note Date: 10/16/23 This is a very pleasant 73-year-old male patient with a known history of nonischemic cardiomyopathy, ventricular tachycardia with previous ablation, AICD placement, hyperlipidemia, former smoker, chronic obstructive pulmonary disease. He presented to the emergency room yesterday after having difficulty swallowing after having a choking episode taking his pills. He did undergo EGD however no foreign body were noted in the esophagus. Following the procedure he was having ongoing issues with excess mucus cough and congestion and ended up being admitted. Soft tissue x-ray revealed suboptimal assessment of the subglottal airway on the frontal view. There nasopharyngeal and oropharyngeal airways appeared patent. No convincing radiopaque foreign body noted. CT scan of the brain revealed no acute intracranial process. Remote frontal lobe injury on the left. Angiogram revealed poor delineation of the esophagus at the level of the larynx. No evidence of free air. No organizing fluid outside the lumen. No evidence of dissection of the cervical internal carotids or vertebral arteries are any evidence of significant stenosis. There is a noted left thyroid gland nodule measuring 2.9 cm. White count 17.3. Hemoglobin 13.8. Platelets 139. Sodium 137. Potassium 4.5. BUN 15. Creatinine 0.76. Glucose 173. He is seen today in consultation on the regular medical floor. He is currently resting comfortably in bed. Awake and alert in no acute distress. He denies any shortness of breath, cough or congestion. Denies any difficulty swallowing this morning. He is maintaining O2 saturations in the upper 90s on room air. He is afebrile. Hemodynamically stable. 10/12. Patient seen and examined. CT soft tissue neck showed no definite evidence of abscess or abnormality. CTA chest showed no PE. States he feels slightly better compared to yesterday. Still very hesitant to try to eat. Speech evaluation ordered 10/13. Patient seen and examined. States he feels better compared to yesterday, was able to take his medications with thickener. Scheduled for esophagram today 10/14/2023 Patient is seen and evaluated in follow-up today and is being followed by general surgery. Patient was evaluated initially by GI underwent EGD with no obvious abnormalities noted. Patient continues to be followed by general surgery as patient reports continuing to have difficulty swallowing and not tolerating pills or oral intake. Patient underwent upper GI series and evaluated by speech scheduled to undergo modified barium swallow study today. Patient reports to having an episode of feeling as if he was vomiting and choking throughout the night requiring suctioning frequently. Patient currently NPO. Continue strict aspiration precautions. Patient also being followed by pulmonary maintained on breathing treatments for acute COPD exacerbation. 10/15/2023 Patient is seen in follow-up today reports he continues to feel terrible as he is unable to eat anything and not sleeping very well reports he has to continuously suction secretions from his mouth. Patient is being followed by pulmonary as well is being restarted on IV steroids as patient does have expiratory wheezing noted and continues with acute COPD exacerbation. General surgery following as well plans for PEG tube placement today. Patient was evaluated by speech and grossly aspirating and patient is agreeable to PEG tube. Dietary will be consulted as well as case management on arrangements for disch arge planning for tube feeds. Patient is afebrile with no reports of chest pain or palpitations. Encouraged increased activity as tolerated as patient has been mostly lying in the bed. Will await surgical report and initiate tube feeds and PEG tube use once cleared by surgery. 10/16/2023 Patient is seen and evaluated today status post PEG tube placement with plans of initiating tube feedings this afternoon per surgery. Patient okay for medications through the PEG tube and home medications resumed. Patient continued on IV steroids with concerns of acute COPD exacerbation. Patient is afebrile denies chest pain or palpitations. Encouraged to increase activity as tolerated. Will need to discuss further with case management on discharge planning regarding tube feedings and the need for home care. REVIEW OF SYSTEMS: CONSTITUTIONAL: No fever, no malaise,. CARDIOVASCULAR: No chest pain, no palpitations, no syncope. PULMONARY: Reports of continued shortness of breath with cough, and excess amounts of sputum GASTROINTESTINAL: No diarrhea, no nausea, no vomiting, no abdominal pain. NEUROLOGICAL: No headaches, no weakness PHYSICAL EXAMINATION: GENERAL: The patient is alert and oriented x3, not in any acute distress. Well developed, well nourished. Elderly appearing HEENT: Pupils are round and equally reacting to light. EOMI. No scleral icterus. No conjunctival pallor. Normocephalic, atraumatic. No pharyngeal erythema. No thyromegaly. CARDIOVASCULAR: S1 and S2 present. No murmurs, rubs, or gallops. PULMONARY: Diminished breath sounds bilaterally with some scattered expiratory wheezing noted. Nonretracting and no accessory muscle use ABDOMEN: Soft, nontender, nondistended, normoactive bowel sounds. No palpable organomegaly. PEG tube noted MUSCULOSKELETAL: No joint swelling or deformity. EXTREMITIES: No cyanosis, clubbing, or pedal edema. NEUROLOGICAL: Gross neurological examination did not reveal any focal deficits. SKIN: No rashes. Assessment: Dyspnea, multifactorial likely secondary to COPD exacerbation as well as concerns of aspiration Pill induced esophagitis Dysphagia with silent aspiration noted on modified barium swallow, status post PEG tube placement on 10/15/2023 Left vertebral artery stenosis history Hypertension COPD, acute exacerbation Left thyroid nodule measuring 2.9 cm to be followed up in the outpatient setting Nonischemic cardiomyopathy History of ventricular tachycardia status post ablation, status post AICD History of congestive heart failure, not in exacerbation History of previous ventilatory dependent respiratory failure secondary to COPD exacerbations 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 Speech therapy recommending strict n.p.o. General surgery evaluated and patient is status post PEG tube placement. Tube feedings to initiate this afternoon. Okay for medications through the PEG tube at home medications reviewed and resumed. Continue n.p.o. and aspiration precautions with head of the bed elevated 30 to 45 degrees at all times Pulmonary following as well for COPD exacerbation and patient has been restarted on IV steroids as there was some wheezing noted. Continue breathing treatments and supplemental oxygen as needed. Wean FiO2 as tolerated Consult to case management/social work arranging for discharge planning as patient will be needing tube feedings Due to multiple complex medical issues, prognosis is guarded Encouraged increase activity as tolerated The impression and plan of care has been dictated by Damaris Treadwell, Nurse Practitioner as directed. Dr. Zi MD I have performed a history and examination and MDM of this patient, discussed the same with the dictator, and agree with the dictator's assessment and plan as written ,documented as a scribe. Based on total visit time, I have performed more than 50% of the visit. Objective - Vital Signs Vital signs: Vital Signs Temp 97.6 F 10/16/23 08:00 Pulse 86 10/16/23 08:57 Resp 16 10/16/23 08:00 BP 138/80 10/16/23 08:00 Pulse Ox 94 L 10/16/23 08:00 FiO2 Intake & Output 10/15/23 10/16/23 10/16/23 18:59 06:59 18:59 Intake Total 250 Output Total 500 Balance 250 -500 Intake: IV 250 Output: Urine 500 Other: Voiding Method Toilet Urinal # Voids 2 - Labs CBC & Chem 7: 10/15/23 15:42 10/16/23 05:56 Labs: Abnormal Lab Results - Last 24 Hours (Table) 10/15/23 10/15/23 Range/Units 15:42 15:42 WBC 14.1 H (3.8-10.6) k/uL RBC 4.20 L (4.30-5.90) m/uL Plt Count 123 L (150-450) k/uL Chloride 110 H (98-107) mmol/L BUN 21 H (9-20) mg/dL Creatinine 0.57 L (0.66-1.25) mg/dL Glucose 111 H (74-99) mg/dL Calcium 8.3 L (8.4-10.2) mg/dL
[2023-10-17] MEDS: predniSONE 10 MG TAB PO SCH (09:54)
[2023-10-17] MEDS: guaiFENesin-DM 600/30MG 1 EACH TAB.ER.12H PO SCH (09:54)
[2023-10-17 11:13] LABS: Magnesium 2.4 mg/dL (1.5-2.4); Phosphorus 3.4 mg/dL (2.4-5.1); Potassium 3.8 mmol/L (3.5-5.5)
--- NOTE | 2023-10-17 11:21 | P.PN ---
Subjective Progress Note Date: 10/17/23 This is a very pleasant 73-year-old male patient with a known history of nonischemic cardiomyopathy, ventricular tachycardia with previous ablation, AICD placement, hyperlipidemia, former smoker, chronic obstructive pulmonary disease. He presented to the emergency room yesterday after having difficulty swallowing after having a choking episode taking his pills. He did undergo EGD however no foreign body were noted in the esophagus. Following the procedure he was having ongoing issues with excess mucus cough and congestion and ended up being admitted. Soft tissue x-ray revealed suboptimal assessment of the subglottal airway on the frontal view. There nasopharyngeal and oropharyngeal airways ap peared patent. No convincing radiopaque foreign body noted. CT scan of the brain revealed no acute intracranial process. Remote frontal lobe injury on the left. Angiogram revealed poor delineation of the esophagus at the level of the larynx. No evidence of free air. No organizing fluid outside the lumen. No evidence of dissection of the cervical internal carotids or vertebral arteries are any evidence of significant stenosis. There is a noted left thyroid gland nodule measuring 2.9 cm. White count 17.3. Hemoglobin 13.8. Platelets 139. Sodium 137. Potassium 4.5. BUN 15. Creatinine 0.76. Glucose 173. He is seen today in consultation on the regular medical floor. He is currently resting comfortably in bed. Awake and alert in no acute distress. He denies any shortness of breath, cough or congestion. Denies any difficulty swallowing this morning. He is maintaining O2 saturations in the upper 90s on room air. He is afebrile. Hemodynamically stable. The patient is seen today October 12, 2023 in follow-up on the regular medical floor. He is currently resting comfortably in bed. Awake and alert in no acute distress. He is still having ongoing issues with difficulty swallowing pills. He is complaining of a sore throat. CT angiogram ruled out pulmonary embolism. There is left lower lobe airspace opacities with possible developing pneumonia. Mild to moderate emphysema. Left thyroid nodule located in the superior mediastinum. Small hiatal hernia. CT soft tissue neck revealed no definite evidence for abscess or significant abnormality. No lymphadenopathy noted. Thyroid nodule noted in the left superior mediastinum. No new labs today. He remains on his home Xopenex. Remains on Solu-Medrol. Swallow evaluation pending. The patient is seen today October 13, 2023 in follow-up on the regular medical floor. He is currently sitting up in bed. Awake and alert in no acute distress. He is still having some difficulty with swallowing. Fluoroscopy of the upper GI with esophagus has been ordered. He remains on bronchodilators and Solu-Medrol. White count 16.2. Hemoglobin 11.7. Platelets 135. Sodium 144. Potassium 4.0. Bicarb 25. BUN 20. Creatinine 0.7. Glucose 150. The patient is seen today October 14, 2023 in follow-up on the regular medical floor. He is currently resting in bed. Awake and alert no acute distress. Maintaining good O2 saturations in the upper 90s on room air. He is afebrile. Hemodynamically stable. He is still having ongoing issues with difficulty in swallowing. Swallow did reveal a delay in passage of contrast in the stomach secondary to dysmotility and tertiary contractions of the esophagus. Small hiatal hernia without stricture. Speech therapy to be working with the patient again today. The patient is seen today October 15, 2023 in follow-up on the regular medical floor. He is resting in bed. Awake and alert in no acute distress. He continues to maintain good O2 saturations in the 90s on room air. Unfortunately he is still unable to have any effective swallow. Speech therapy evaluated him yesterday. The patient is aspirating. PEG tube recommendations were made and the plan is for PEG tube insertion today. He remains on bronchodilators, Solu- Medrol, Singulair. 0.45% normal saline at 75 MLS per hour. The patient is seen today October 16, 2023 in follow-up on the regular medical floor. He is awake and alert in no acute distress. Sitting up in a chair at the bedside. Maintaining good O2 saturations in the 90s on room air. He has 0.45 normal saline at 75 MLS per hour. He did receive a PEG tube placement yesterday. To be initiated on tube feedings later this afternoon. Sodium 144. Potassium 3.8. Bicarb 26. BUN 21. Creatinine 0.7. Glucose 121. He remains on Symbicort, Xopenex, Singulair and Solu-Medrol. The patient is seen today October 17, 2023 in follow-up on the regular medical floor. He is sitting up in bed. Awake and alert in no acute distress. He is maintaining good O2 saturations in the 90s on 2 L/min per nasal cannula. He has been afebrile. Hemodynamically stable. He is being nourished now with Jevity at 15 mL/h with a goal of 65 MLS per hour. Potassium 3.8. Calcium 3.4. Phosphorus 2.4. He is continued on Symbicort, Singulair, Xopenex, Solu-Medrol. Objective - Vital Signs Vital signs: Vital Signs Temp 97.7 F 10/17/23 08:00 Pulse 84 10/17/23 09:16 Resp 14 10/17/23 08:00 BP 110/69 10/17/23 08:00 Pulse Ox 99 10/17/23 08:00 FiO2 Intake & Output 10/16/23 10/17/23 10/17/23 18:59 06:59 18:59 Intake Total 130 25 20 Output Total 500 Balance 130 -475 20 Weight 78.6 kg 77.6 kg 77.6 kg Intake: Oral 120 Tube Feeding 10 25 20 Output: Urine 500 Other: Voiding Method Toilet Toilet Urinal Urinal # Voids 3 - Exam GENERAL EXAM: Awake, 73-year-old male patient, on 2 liters nasal cannula, in no apparent distress. HEAD: Normocephalic. EYES: Normal reaction of pupils, equal size. NOSE: Clear with pink turbinates. THROAT: No erythema or exudates. No evidence of yeast. No visible mass. NECK: No masses, no JVD. CHEST: No chest wall deformity. LUNGS: Equal air entry with few scattered rhonchi bilaterally. CVS: S1 and S2 normal with no audible murmur, regular rhythm. ABDOMEN: PEG tube exit site clean and dry. No hepatosplenomegaly, normal bowel sounds, no guarding or rigidity. SPINE: No scoliosis or deformity SKIN: No rashes CENTRAL NERVOUS SYSTEM: No focal deficits, tone is normal in all 4 extremities. EXTREMITIES: There is no peripheral edema. No clubbing, no cyanosis. Peripheral pulses are intact. - Labs CBC & Chem 7: 10/15/23 15:42 10/17/23 06:28 Assessment and Plan Assessment: Dysphagia secondary to difficulty swallowing a pill. EGD did not reveal any evidence of foreign body. Barium swallow reported dysmotility with tertiary con tractions of the esophagus. Small hiatal hernia with mild gastroesophageal reflux disease. No surgical intervention planned. The patient was having aspiration while working with speech therapy and PEG tube placement was recommended. PEG tube placed October 15, 2023. Left thyroid nodule measuring 2.9 cm to be followed up in the outpatient setting History of chronic obstructive pulmonary disease, currently inactive and stable History of obstructive pulmonary disease, currently inactive and stable Nonischemic cardiomyopathy History of ventricular tachycardia status post ablation, status post AICD History of congestive heart failure History of previous ventilatory dependent respiratory failure secondary to COPD exacerbations History of brain hemorrhage while on blood thinners Plan: The patient was seen and evaluated Medications and labs reviewed Tolerating PEG tube feedings Continue the Symbicort, Singulair, Xopenex Discontinue Solu-Medrol Initiate a prednisone taper Add Mucinex Add a flutter valve Increase his activity as tolerated Titrate down the FiO2 as tolerated May need subacute rehabilitation at discharge This patient was seen independently by the pulmonary nurse practitioner addressing pulmonary issues I have personally seen and examined the patient, performed the documentation and the assessment and plan as written. Number of minutes spent on the visit: 24.
[2023-10-17 11:33] VITALS: BMI 23.8
--- NOTE | 2023-10-17 13:27 | P.PN ---
Subjective Progress Note Date: 10/17/23 CHIEF COMPLAINT: Dysphagia HISTORY OF PRESENT ILLNESS: Patient status post PEG tube placement. Denies any abdominal pain. Denies any nausea or vomiting. Patient has started tube feeds at 20 mL/h PHYSICAL EXAM: VITAL SIGNS: Reviewed. GENERAL: Well-developed in no acute distress. ABDOMEN: Soft. Nondistended. PEG tube site dry and intact. Small amount of dried blood noted NEUROLOGIC: Alert and oriented. Cranial nerves II through XII grossly intact. ASSESSMENT: 1. Dysphagia 2. Dysmotility disorder of the esophagus PLAN: -Have nursing staff clean around PEG tube site -Continue to titrate tube feedings per dietitian recommendations Physician [employer] note has been reviewed by physician. Signing provider agrees with the documented findings, assessment, and plan of care. Objective - Vital Signs Vital signs: Vital Signs Temp 97.7 F 10/17/23 08:00 Pulse 80 10/17/23 12:50 Resp 14 10/17/23 08:00 BP 142/77 10/17/23 11:42 Pulse Ox 99 10/17/23 08:00 FiO2 Intake & Output 10/16/23 10/17/23 10/17/23 18:59 06:59 18:59 Intake Total 130 25 20 Output Total 500 Balance 130 -475 20 Weight 78.6 kg 77.6 kg 77.6 kg Intake: Oral 120 Tube Feeding 10 25 20 Output: Urine 500 Other: Voiding Method Toilet Toilet Urinal Urinal Urinal # Voids 3 - Labs CBC & Chem 7: 10/15/23 15:42 10/17/23 06:28
--- NOTE | 2023-10-17 18:23 | CDI ---
Documentation Clarification Form Date: 10/17/2023 06:05:28 PM From: Lidya Holloway RN, CCDS Phone: [phone] Admit Date: 10/13/2023 03:31:00 PM Patient Name: Surendra Chahal Visit Number: [id number] Discharge Date: ATTENTION: The Clinical Documentation Specialists (CDI) and [facility] Coding Staff appreciate your assistance in clarifying documentation. Please respond to the clarification below the line at the bottom and electronically sign. The CDI & [facility] Coding staff will review the response and follow-up if needed. Please note: Queries are made part of the Legal Health Record. If you have any questions, please contact the author of this message via ITS. Dr. Stacey Pinon The Registered Dietitian assessment on 10/16/23 indicates this patient meets criteria for malnutrition severe, chronic. Based on this information and the findings below, is there an additional diagnosis that is clinically appropriate for this patient? History/Risk Factors: Dyspnea, COPD, hyperlipidemia Clinical Indicators: 73-year-old male with complaints of pill being stuck in his throat, was having worsening cough and shortness of breath. he was ruled in for Dysphagia secondary to difficulty swallowing a pill. EGD did not reveal any evidence of foreign body. Pill induced esophagitis. Current BMI: 23.9 Appetite poor Greater than 6 Months Difficult chewing/swallowing No Intake> 7 days per pat d/t difficulty swallowing RD Consult Assessment: Malnutrition severe, chronic Treatment: 10/15 EGD PEG tube placement Jevity 1,5 @ 65 ml/hr 30 ml free water flush Q4 hrs Monitor Tube feeding Is there an additional diagnosis that is clinically appropriate for this patient? [ ] Mild Protein-Calorie Malnutrition [ ] Moderate Protein-Calorie Malnutrition [ x ] Severe Protein-Calorie Malnutrition [ ] Other, Specify [ ] Unable to Determine (Template Last Revised: February 2023) MTDD
--- NOTE | 2023-10-17 19:39 | P.PN ---
Subjective Progress Note Date: 10/17/23 This is a very pleasant 73-year-old male patient with a known history of nonischemic cardiomyopathy, ventricular tachycardia with previous ablation, AICD placement, hyperlipidemia, former smoker, chronic obstructive pulmonary disease. He presented to the emergency room yesterday after having difficulty swallowing after having a choking episode taking his pills. He did undergo EGD however no foreign body were noted in the esophagus. Following the procedure he was having ongoing issues with excess mucus cough and congestion and ended up being admitted. Soft tissue x-ray revealed suboptimal assessment of the subglottal airway on the frontal view. There nasopharyngeal and oropharyngeal airways appeared patent. No convincing radiopaque foreign body noted. CT scan of the brain revealed no acute intracranial process. Remote frontal lobe injury on the left. Angiogram revealed poor delineation of the esophagus at the level of the larynx. No evidence of free air. No organizing fluid outside the lumen. No evidence of dissection of the cervical internal carotids or vertebral arteries are any evidence of significant stenosis. There is a noted left thyroid gland nodule measuring 2.9 cm. White count 17.3. Hemoglobin 13.8. Platelets 139. Sodium 137. Potassium 4.5. BUN 15. Creatinine 0.76. Glucose 173. He is seen today in consultation on the regular medical floor. He is currently resting comfortably in bed. Awake and alert in no acute distress. He denies any shortness of breath, cough or congestion. Denies any difficulty swallowing this morning. He is maintaining O2 saturations in the upper 90s on room air. He is afebrile. Hemodynamically stable. 10/12. Patient seen and examined. CT soft tissue neck showed no definite evidence of abscess or abnormality. CTA chest showed no PE. States he feels slightly better compared to yesterday. Still very hesitant to try to eat. Speech evaluation ordered 10/13. Patient seen and examined. States he feels better compared to yesterday, was able to take his medications with thickener. Scheduled for esophagram today 10/14/2023 Patient is seen and evaluated in follow-up today and is being followed by general surgery. Patient was evaluated initially by GI underwent EGD with no obvious abnormalities noted. Patient continues to be followed by general surgery as patient reports continuing to have difficulty swallowing and not tolerating pills or oral intake. Patient underwent upper GI series and evaluated by speech scheduled to undergo modified barium swallow study today. Patient reports to having an episode of feeling as if he was vomiting and choking throughout the night requiring suctioning frequently. Patient currently NPO. Continue strict aspiration precautions. Patient also being followed by pulmonary maintained on breathing treatments for acute COPD exacerbation. 10/15/2023 Patient is seen in follow-up today reports he continues to feel terrible as he is unable to eat anything and not sleeping very well reports he has to continuously suction secretions from his mouth. Patient is being followed by pulmonary as well is being restarted on IV steroids as patient does have expiratory wheezing noted and continues with acute COPD exacerbation. General surgery following as well plans for PEG tube placement today. Patient was evaluated by speech and grossly aspirating and patient is agreeable to PEG tube. Dietary will be consulted as well as case management on arrangements for disch arge planning for tube feeds. Patient is afebrile with no reports of chest pain or palpitations. Encouraged increased activity as tolerated as patient has been mostly lying in the bed. Will await surgical report and initiate tube feeds and PEG tube use once cleared by surgery. 10/16/2023 Patient is seen and evaluated today status post PEG tube placement with plans of initiating tube feedings this afternoon per surgery. Patient okay for medications through the PEG tube and home medications resumed. Patient continued on IV steroids with concerns of acute COPD exacerbation. Patient is afebrile denies chest pain or palpitations. Encouraged to increase activity as tolerated. Will need to discuss further with case management on discharge planning regarding tube feedings and the need for home care. 10/17/2023 Patient is seen and evaluated in follow-up today reporting he continues to have increased shortness of breath at night and difficulty in breathing requiring inhaler use. Will continue with breathing inhalational treatments and make as needed DuoNebs as well. Pulmonary is following patient is maintained on IV steroids. Patient sitting up in the chair today reports to feeling better. Patient with weakness will have PT/OT therapy evaluate the patient. Patient is adamant he is going home. REVIEW OF SYSTEMS: CONSTITUTIONAL: No fever, no malaise,. CARDIOVASCULAR: No chest pain, no palpitations, no syncope. PULMONARY: Reports of continued shortness of breath with cough, and excess amounts of sputum GASTROINTESTINAL: No diarrhea, no nausea, no vomiting, no abdominal pain. Patient is tolerating tube feeds NEUROLOGICAL: No headaches, no weakness PHYSICAL EXAMINATION: GENERAL: The patient is alert and oriented x3, not in any acute distress. Well developed, well nourished. Elderly appearing HEENT: Pupils are round and equally reacting to light. EOMI. No scleral icterus. No conjunctival pallor. Normocephalic, atraumatic. No pharyngeal erythema. No thyromegaly. CARDIOVASCULAR: S1 and S2 present. No murmurs, rubs, or gallops. PULMONARY: Diminished breath sounds bilaterally with some scattered expiratory wheezing noted. Nonretracting and no accessory muscle use ABDOMEN: Soft, nontender, nondistended, normoactive bowel sounds. No palpable organomegaly. PEG tube noted MUSCULOSKELETAL: No joint swelling or deformity. EXTREMITIES: No cyanosis, clubbing, or pedal edema. NEUROLOGICAL: Gross neurological examination did not reveal any focal deficits. Diffusely weak SKIN: No rashes. Assessment: Dyspnea, multifactorial likely secondary to COPD exacerbation as well as concerns of aspiration Pill induced esophagitis Dysphagia with silent aspiration noted on modified barium swallow, status post PEG tube placement on 10/15/2023 Severe protein calorie malnutrition secondary to dysphagia with dysmotility Left vertebral artery stenosis history Hypertension COPD, acute exacerbation Left thyroid nodule measuring 2.9 cm to be followed up in the outpatient setting Nonischemic cardiomyopathy History of ventricular tachycardia status post ablation, status post AICD History of congestive heart failure, not in exacerbation History of previous ventilatory dependent respiratory failure secondary to COPD exacerbations 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 Speech therapy recommending strict n.p.o. General surgery evaluated and patient is status post PEG tube placement. Tube feedings being tolerated thus far. Okay for medications through the PEG tube at home medications reviewed and resumed. Continue n.p.o. and aspiration precautions with head of the bed elevated 30 to 45 degrees at all times. Patient is allowed to have ice chips Pulmonary following as well for COPD exacerbation and patient is continued on IV steroids as there was some wheezing noted. Continue breathing treatments and supplemental oxygen as needed. Wean FiO2 as tolerated Consult to case management/social work arranging for discharge planning as patient will be needing tube feedings. Patient with generalized weakness and prolonged hospitalization will have physical therapy evaluate the patient. Patient is adamant he is going home and will have home care and rehab in his home. Patient will not go to ECF. Due to multiple complex medical issues, prognosis is guarded Encouraged increase activity as tolerated The impression and plan of care has been dictated by Damaris Treadwell, Nurse Practitioner as directed. Dr. Zi MD I have performed a history and examination and MDM of this patient, discussed the same with the dictator, and agree with the dictator's assessment and plan as written ,documented as a scribe. Based on total visit time, I have performed more than 50% of the visit. Objective - Vital Signs Vital signs: Vital Signs Temp 97.7 F 10/17/23 08:00 Pulse 84 10/17/23 09:16 Resp 14 10/17/23 08:00 BP 110/69 10/17/23 08:00 Pulse Ox 99 10/17/23 08:00 FiO2 Intake & Output 10/16/23 10/17/23 10/17/23 18:59 06:59 18:59 Intake Total 130 25 Output Total 500 Balance 130 -475 Weight 78.6 kg 77.6 kg Intake: Oral 120 Tube Feeding 10 25 Output: Urine 500 Other: Voiding Method Toilet Toilet Urinal Urinal # Voids 3 - Labs CBC & Chem 7: 10/15/23 15:42 10/17/23 06:28 Labs: Abnormal Lab Results - Last 24 Hours (Table) 10/16/23 Range/Units 05:56 Anion Gap 12.70 H (4.00-12.00) mmol/L BUN/Creatinine Ratio 29.29 H (12.00-20.00) Ratio Glucose 121 H (70-110) mg/dL Calcium 8.5 L (8.7-10.3) mg/dL
[2023-10-17] MEDS: guaiFENesin-DM 100-10MG/5ML 10 ML CUP PO SCH (21:48)
--- NOTE | 2023-10-18 08:34 | P.PN ---
Subjective Progress Note Date: 10/18/23 This is a very pleasant 73-year-old male patient with a known history of nonischemic cardiomyopathy, ventricular tachycardia with previous ablation, AICD placement, hyperlipidemia, former smoker, chronic obstructive pulmonary disease. He presented to the emergency room yesterday after having difficulty swallowing after having a choking episode taking his pills. He did undergo EGD however no foreign body were noted in the esophagus. Following the procedure he was having ongoing issues with excess mucus cough and congestion and ended up being admitted. Soft tissue x-ray revealed suboptimal assessment of the subglottal airway on the frontal view. There nasopharyngeal and oropharyngeal airways ap peared patent. No convincing radiopaque foreign body noted. CT scan of the brain revealed no acute intracranial process. Remote frontal lobe injury on the left. Angiogram revealed poor delineation of the esophagus at the level of the larynx. No evidence of free air. No organizing fluid outside the lumen. No evidence of dissection of the cervical internal carotids or vertebral arteries are any evidence of significant stenosis. There is a noted left thyroid gland nodule measuring 2.9 cm. White count 17.3. Hemoglobin 13.8. Platelets 139. Sodium 137. Potassium 4.5. BUN 15. Creatinine 0.76. Glucose 173. He is seen today in consultation on the regular medical floor. He is currently resting comfortably in bed. Awake and alert in no acute distress. He denies any shortness of breath, cough or congestion. Denies any difficulty swallowing this morning. He is maintaining O2 saturations in the upper 90s on room air. He is afebrile. Hemodynamically stable. The patient is seen today October 12, 2023 in follow-up on the regular medical floor. He is currently resting comfortably in bed. Awake and alert in no acute distress. He is still having ongoing issues with difficulty swallowing pills. He is complaining of a sore throat. CT angiogram ruled out pulmonary embolism. There is left lower lobe airspace opacities with possible developing pneumonia. Mild to moderate emphysema. Left thyroid nodule located in the superior mediastinum. Small hiatal hernia. CT soft tissue neck revealed no definite evidence for abscess or significant abnormality. No lymphadenopathy noted. Thyroid nodule noted in the left superior mediastinum. No new labs today. He remains on his home Xopenex. Remains on Solu-Medrol. Swallow evaluation pending. The patient is seen today October 13, 2023 in follow-up on the regular medical floor. He is currently sitting up in bed. Awake and alert in no acute distress. He is still having some difficulty with swallowing. Fluoroscopy of the upper GI with esophagus has been ordered. He remains on bronchodilators and Solu-Medrol. White count 16.2. Hemoglobin 11.7. Platelets 135. Sodium 144. Potassium 4.0. Bicarb 25. BUN 20. Creatinine 0.7. Glucose 150. The patient is seen today October 14, 2023 in follow-up on the regular medical floor. He is currently resting in bed. Awake and alert no acute distress. Maintaining good O2 saturations in the upper 90s on room air. He is afebrile. Hemodynamically stable. He is still having ongoing issues with difficulty in swallowing. Swallow did reveal a delay in passage of contrast in the stomach secondary to dysmotility and tertiary contractions of the esophagus. Small hiatal hernia without stricture. Speech therapy to be working with the patient again today. The patient is seen today October 15, 2023 in follow-up on the regular medical floor. He is resting in bed. Awake and alert in no acute distress. He continues to maintain good O2 saturations in the 90s on room air. Unfortunately he is still unable to have any effective swallow. Speech therapy evaluated him yesterday. The patient is aspirating. PEG tube recommendations were made and the plan is for PEG tube insertion today. He remains on bronchodilators, Solu- Medrol, Singulair. 0.45% normal saline at 75 MLS per hour. The patient is seen today October 16, 2023 in follow-up on the regular medical floor. He is awake and alert in no acute distress. Sitting up in a chair at the bedside. Maintaining good O2 saturations in the 90s on room air. He has 0.45 normal saline at 75 MLS per hour. He did receive a PEG tube placement yesterday. To be initiated on tube feedings later this afternoon. Sodium 144. Potassium 3.8. Bicarb 26. BUN 21. Creatinine 0.7. Glucose 121. He remains on Symbicort, Xopenex, Singulair and Solu-Medrol. The patient is seen today October 17, 2023 in follow-up on the regular medical floor. He is sitting up in bed. Awake and alert in no acute distress. He is maintaining good O2 saturations in the 90s on 2 L/min per nasal cannula. He has been afebrile. Hemodynamically stable. He is being nourished now with Jevity at 15 mL/h with a goal of 65 MLS per hour. Potassium 3.8. Calcium 3.4. Phosphorus 2.4. He is continued on Symbicort, Singulair, Xopenex, Solu-Medrol. The patient is seen today October 18, 2023 in follow-up on the regular medical floor. He is resting comfortably in bed. Awake and alert in no acute distress. Maintaining good O2 saturations in the 90s on 2 L/min per nasal cannula. Has been afebrile. Hemodynamically stable. He is tolerating Jevity now at 30 MLS per hour with a goal of 65 MLS per hour. No new labs today. He remains on Symbicort, Singulair, Xopenex and prednisone taper. Robitussin as needed. Con tinues to work with a flutter valve. Objective - Vital Signs Vital signs: Vital Signs Temp 97.8 F 10/18/23 07:28 Pulse 77 10/18/23 07:28 Resp 20 10/18/23 07:28 BP 136/75 10/18/23 07:28 Pulse Ox 96 10/18/23 07:28 FiO2 Intake & Output 10/17/23 10/18/23 10/18/23 18:59 06:59 18:59 Intake Total 45 55 Output Total 1000 Balance 45 -945 Weight 77.6 kg 79 kg Intake: Tube Feeding 45 55 Output: Urine 1000 Other: Voiding Method Urinal Urinal # Voids 0 # Bowel Movements 1 - Exam GENERAL EXAM: Awake, alert 73-year-old male patient, resting comfortably in bed, on 2 liters nasal cannula, in no apparent distress. HEAD: Normocephalic. EYES: Normal reaction of pupils, equal size. NOSE: Clear with pink turbinates. THROAT: No erythema or exudates. No evidence of yeast. No visible mass. NECK: No masses, no JVD. CHEST: No chest wall deformity. LUNGS: Equal air entry with few scattered rhonchi bilaterally. CVS: S1 and S2 normal with no audible murmur, regular rhythm. ABDOMEN: PEG tube exit site clean and dry. No hepatosplenomegaly, normal bowel sounds, no guarding or rigidity. SPINE: No scoliosis or deformity SKIN: No rashes CENTRAL NERVOUS SYSTEM: No focal deficits, tone is normal in all 4 extremities. EXTREMITIES: There is no peripheral edema. No clubbing, no cyanosis. Peripheral pulses are intact. - Labs CBC & Chem 7: 10/15/23 15:42 10/17/23 06:28 Assessment and Plan Assessment: Dysphagia secondary to difficulty swallowing a pill. EGD did not reveal any evidence of foreign body. Barium swallow reported dysmotility with tertiary contractions of the esophagus. Small hiatal hernia with mild gastroesophageal reflux disease. No surgical intervention planned. The patient was having aspiration while working with speech therapy and PEG tube placement was recommended. PEG tube placed October 15, 2023. 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 blood thinners Plan: The patient was seen and evaluated Medications reviewed Continue the Symbicort, Singulair, Xopenex Continue on a prednisone taper Continue Mucinex and flutter valve Increase his activity as tolerated Titrate down the FiO2 as tolerated Tolerating his tube feeding Cleared for discharge from the pulmonary standpoint Plan is for home with home care Patient has been quite adamant about not going to subacute rehabilitation This patient was seen independently by the pulmonary nurse practitioner addressing pulmonary issues I have personally seen and examined the patient, performed the documentation and the assessment and plan as written. Number of minutes spent on the visit: 23.
--- NOTE | 2023-10-18 12:24 | XR ---
EXAMINATION TYPE: XR chest 2V DATE OF EXAM: 10/18/2023 12:10 PM CLINICAL INDICATION:Male, 73 years old with history of dyspnea, cough COMPARISON: Chest radiographs from 10/10/2023. TECHNIQUE: XR chest 2V Frontal and lateral views of the chest. FINDINGS: Lungs/Pleura: There is no evidence of pleural effusion, focal consolidation, or pneumothorax. Pulmonary vascularity: Unremarkable. Heart/mediastinum: Cardiomediastinal silhouette is enlarged and stable. Atherosclerotic calcificatio ns are seen in the aorta. Two lead cardiac conduction device overlying the left hemithorax with lead tips projecting over the right ventricle and right atrium. Musculoskeletal: No acute osseous pathology. Other findings: None IMPRESSION: 1. No acute cardiopulmonary disease process. 2. COPD changes.
--- NOTE | 2023-10-18 14:17 | P.PN ---
Subjective Progress Note Date: 10/18/23 This is a very pleasant 73-year-old male patient with a known history of nonischemic cardiomyopathy, ventricular tachycardia with previous ablation, AICD placement, hyperlipidemia, former smoker, chronic obstructive pulmonary disease. He presented to the emergency room yesterday after having difficulty swallowing after having a choking episode taking his pills. He did undergo EGD however no foreign body were noted in the esophagus. Following the procedure he was having ongoing issues with excess mucus cough and congestion and ended up being admitted. Soft tissue x-ray revealed suboptimal assessment of the subglottal airway on the frontal view. There nasopharyngeal and oropharyngeal airways domitila eared patent. No convincing radiopaque foreign body noted. CT scan of the brain revealed no acute intracranial process. Remote frontal lobe injury on the left. Angiogram revealed poor delineation of the esophagus at the level of the larynx. No evidence of free air. No organizing fluid outside the lumen. No evidence of dissection of the cervical internal carotids or vertebral arteries are any evidence of significant stenosis. There is a noted left thyroid gland nodule measuring 2.9 cm. White count 17.3. Hemoglobin 13.8. Platelets 139. Sodium 137. Potassium 4.5. BUN 15. Creatinine 0.76. Glucose 173. He is seen today in consultation on the regular medical floor. He is currently resting comfortably in bed. Awake and alert in no acute distress. He denies any shortness of breath, cough or congestion. Denies any difficulty swallowing this morning. He is maintaining O2 saturations in the upper 90s on room air. He is afebrile. Hemodynamically stable. 10/12. Patient seen and examined. CT soft tissue neck showed no definite evidence of abscess or abnormality. CTA chest showed no PE. States he feels slightly better compared to yesterday. Still very hesitant to try to eat. Speech evaluation ordered 10/13. Patient seen and examined. States he feels better compared to yesterday, was able to take his medications with thickener. Scheduled for esophagram today 10/14/2023 Patient is seen and evaluated in follow-up today and is being followed by general surgery. Patient was evaluated initially by GI underwent EGD with no obvious abnormalities noted. Patient continues to be followed by general surgery as patient reports continuing to have difficulty swallowing and not tolerating pills or oral intake. Patient underwent upper GI series and evaluated by speech scheduled to undergo modified barium swallow study today. Patient reports to having an episode of feeling as if he was vomiting and choking throughout the night requiring suctioning frequently. Patient currently NPO. Continue strict aspiration precautions. Patient also being followed by pulmonary maintained on breathing treatments for acute COPD exacerbation. 10/15/2023 Patient is seen in follow-up today reports he continues to feel terrible as he is unable to eat anything and not sleeping very well reports he has to continuously suction secretions from his mouth. Patient is being followed by pulmonary as well is being restarted on IV steroids as patient does have expiratory wheezing noted and continues with acute COPD exacerbation. General surgery following as well plans for PEG tube placement today. Patient was evaluated by speech and grossly aspirating and patient is agreeable to PEG tube. Dietary will be consulted as well as case management on arrangements for discharge planning for tube feeds. Patient is afebrile with no reports of chest pain or palpitations. Encouraged increased activity as tolerated as patient has been mostly lying in the bed. Will await surgical report and initiate tube feeds and PEG tube use once cleared by surgery. 10/16/2023 Patient is seen and evaluated today status post PEG tube placement with plans of initiating tube feedings this afternoon per surgery. Patient okay for medications through the PEG tube and home medications resumed. Patient continued on IV steroids with concerns of acute COPD exacerbation. Patient is afebrile denies chest pain or palpitations. Encouraged to increase activity as tolerated. Will need to discuss further with case management on discharge planning regarding tube feedings and the need for home care. 10/17/2023 Patient is seen and evaluated in follow-up today reporting he continues to have increased shortness of breath at night and difficulty in breathing requiring inhaler use. Will continue with breathing inhalational treatments and make as needed DuoNebs as well. Pulmonary is following patient is maintained on IV steroids. Patient sitting up in the chair today reports to feeling better. Patient with weakness will have PT/OT therapy evaluate the patient. Patient is adamant he is going home. 10/18/2023 Patient evaluated today sitting up in the chair family at the bedside. Patient continues to have mild shortness of breath at baseline. Patient on oxygen support. On duonebs. Electrolytes better today. Continues with coarse scattered ronchi and follow up chest xray today showing no pleural effusion, no consolidation, and no pneumothorax. No acute cardiopulmonary disease. COPD changes. He had 2 episodes of loose stool overnight and was incontinent. He is concerned he will not have control over his bowels. He is on metamucil. REVIEW OF SYSTEMS: CONSTITUTIONAL: No fever, no malaise,. CARDIOVASCULAR: No chest pain, no palpitations, no syncope. PULMONARY: Reports of continued shortness of breath with cough, and excess amounts of sputum GASTROINTESTINAL: No diarrhea, no nausea, no vomiting, no abdominal pain. Patient is tolerating tube feeds NEUROLOGICAL: No headaches, no weakness PHYSICAL EXAMINATION: GENERAL: The patient is alert and oriented x3, not in any acute distress. Well developed, well nourished. Elderly appearing HEENT: Pupils are round and equally reacting to light. EOMI. No scleral icterus. No conjunctival pallor. Normocephalic, atraumatic. No pharyngeal erythema. No thyromegaly. CARDIOVASCULAR: S1 and S2 present. No murmurs, rubs, or gallops. PULMONARY: Diminished breath sounds bilaterally with some scattered expiratory wheezing noted. Nonretracting and no accessory muscle use ABDOMEN: Soft, nontender, nondistended, normoactive bowel sounds. No palpable organomegaly. PEG tube noted MUSCULOSKELETAL: No joint swelling or deformity. EXTREMITIES: No cyanosis, clubbing, or pedal edema. NEUROLOGICAL: Gross neurological examination did not reveal any focal deficits. Diffusely weak SKIN: No rashes. Assessment: Dyspnea, multifactorial likely secondary to COPD exacerbation as well as concerns of aspiration Pill induced esophagitis Dysphagia with silent aspiration noted on modified barium swallow, status post PEG tube placement on 10/15/2023 Severe protein calorie malnutrition secondary to dysphagia with dysmotility Left vertebral artery stenosis history Hypertension COPD, acute exacerbation Left thyroid nodule measuring 2.9 cm to be followed up in the outpatient setting Nonischemic cardiomyopathy History of ventricular tachycardia status post ablation, status post AICD History of congestive heart failure, not in exacerbation History of previous ventilatory dependent respiratory failure secondary to COPD exacerbations 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 Speech therapy recommending strict n.p.o. General surgery evaluated and patient is status post PEG tube placement. Tube feedings being tolerated thus far. Okay for medications through the PEG tube at home medications reviewed and resumed. Continue n.p.o. and aspiration precautions with head of the bed elevated 30 to 45 degrees at all times. Patient is allowed to have ice chips Pulmonary following as well for COPD exacerbation and patient is continued on IV steroids as there was some wheezing noted. Continue breathing treatments and supplemental oxygen as needed. Wean FiO2 as tolerated Consult to case management/social work arranging for discharge planning as patient will be needing tube feedings. Patient with generalized weakness and prolonged hospitalization will have physical therapy evaluate the patient. Patient is adamant he is going home and will have home care and rehab in his home. Patient will not go to [facility]. Due to multiple complex medical issues, prognosis is guarded Encouraged increase activity as tolerated The impression and plan of care has been dictated by Pau Fritz Nurse Practitioner as directed. Dr. Zeferino MD I have performed a history and physical examination and medical decision making of this patient, discussed the same with the dictator, and agree with the dictators assessment and plan as written, documented as a scribe. Based on total visit time, I have performed more than 50% of this visit. Objective - Vital Signs Vital signs: Vital Signs Temp 97.8 F 10/18/23 07:28 Pulse 86 10/18/23 09:20 Resp 20 10/18/23 07:28 BP 136/75 10/18/23 07:28 Pulse Ox 96 10/18/23 09:07 FiO2 Intake & Output 10/17/23 10/18/23 10/18/23 18:59 06:59 18:59 Intake Total 45 55 Output Total 1000 Balance 45 -945 Weight 77.6 kg 79 kg Intake: Tube Feeding 45 55 Output: Urine 1000 Other: Voiding Method Urinal Urinal Urinal # Voids 0 # Bowel Movements 1 - Labs CBC & Chem 7: 10/15/23 15:42 10/17/23 06:28 Assessment and Plan Time with Patient: Less than 30
--- NOTE | 2023-10-19 08:28 | P.PN ---
Subjective Progress Note Date: 10/19/23 This is a very pleasant 73-year-old male patient with a known history of nonischemic cardiomyopathy, ventricular tachycardia with previous ablation, AICD placement, hyperlipidemia, former smoker, chronic obstructive pulmonary disease. He presented to the emergency room yesterday after having difficulty swallowing after having a choking episode taking his pills. He did undergo EGD however no foreign body were noted in the esophagus. Following the procedure he was having ongoing issues with excess mucus cough and congestion and ended up being admitted. Soft tissue x-ray revealed suboptimal assessment of the subglottal airway on the frontal view. There nasopharyngeal and oropharyngeal airways ap peared patent. No convincing radiopaque foreign body noted. CT scan of the brain revealed no acute intracranial process. Remote frontal lobe injury on the left. Angiogram revealed poor delineation of the esophagus at the level of the larynx. No evidence of free air. No organizing fluid outside the lumen. No evidence of dissection of the cervical internal carotids or vertebral arteries are any evidence of significant stenosis. There is a noted left thyroid gland nodule measuring 2.9 cm. White count 17.3. Hemoglobin 13.8. Platelets 139. Sodium 137. Potassium 4.5. BUN 15. Creatinine 0.76. Glucose 173. He is seen today in consultation on the regular medical floor. He is currently resting comfortably in bed. Awake and alert in no acute distress. He denies any shortness of breath, cough or congestion. Denies any difficulty swallowing this morning. He is maintaining O2 saturations in the upper 90s on room air. He is afebrile. Hemodynamically stable. The patient is seen today October 12, 2023 in follow-up on the regular medical floor. He is currently resting comfortably in bed. Awake and alert in no acute distress. He is still having ongoing issues with difficulty swallowing pills. He is complaining of a sore throat. CT angiogram ruled out pulmonary embolism. There is left lower lobe airspace opacities with possible developing pneumonia. Mild to moderate emphysema. Left thyroid nodule located in the superior mediastinum. Small hiatal hernia. CT soft tissue neck revealed no definite evidence for abscess or significant abnormality. No lymphadenopathy noted. Thyroid nodule noted in the left superior mediastinum. No new labs today. He remains on his home Xopenex. Remains on Solu-Medrol. Swallow evaluation pending. The patient is seen today October 13, 2023 in follow-up on the regular medical floor. He is currently sitting up in bed. Awake and alert in no acute distress. He is still having some difficulty with swallowing. Fluoroscopy of the upper GI with esophagus has been ordered. He remains on bronchodilators and Solu-Medrol. White count 16.2. Hemoglobin 11.7. Platelets 135. Sodium 144. Potassium 4.0. Bicarb 25. BUN 20. Creatinine 0.7. Glucose 150. The patient is seen today October 14, 2023 in follow-up on the regular medical floor. He is currently resting in bed. Awake and alert no acute distress. Maintaining good O2 saturations in the upper 90s on room air. He is afebrile. Hemodynamically stable. He is still having ongoing issues with difficulty in swallowing. Swallow did reveal a delay in passage of contrast in the stomach secondary to dysmotility and tertiary contractions of the esophagus. Small hiatal hernia without stricture. Speech therapy to be working with the patient again today. The patient is seen today October 15, 2023 in follow-up on the regular medical floor. He is resting in bed. Awake and alert in no acute distress. He continues to maintain good O2 saturations in the 90s on room air. Unfortunately he is still unable to have any effective swallow. Speech therapy evaluated him yesterday. The patient is aspirating. PEG tube recommendations were made and the plan is for PEG tube insertion today. He remains on bronchodilators, Solu- Medrol, Singulair. 0.45% normal saline at 75 MLS per hour. The patient is seen today October 16, 2023 in follow-up on the regular medical floor. He is awake and alert in no acute distress. Sitting up in a chair at the bedside. Maintaining good O2 saturations in the 90s on room air. He has 0.45 normal saline at 75 MLS per hour. He did receive a PEG tube placement yesterday. To be initiated on tube feedings later this afternoon. Sodium 144. Potassium 3.8. Bicarb 26. BUN 21. Creatinine 0.7. Glucose 121. He remains on Symbicort, Xopenex, Singulair and Solu-Medrol. The patient is seen today October 17, 2023 in follow-up on the regular medical floor. He is sitting up in bed. Awake and alert in no acute distress. He is maintaining good O2 saturations in the 90s on 2 L/min per nasal cannula. He has been afebrile. Hemodynamically stable. He is being nourished now with Jevity at 15 mL/h with a goal of 65 MLS per hour. Potassium 3.8. Calcium 3.4. Phosphorus 2.4. He is continued on Symbicort, Singulair, Xopenex, Solu-Medrol. The patient is seen today October 18, 2023 in follow-up on the regular medical floor. He is resting comfortably in bed. Awake and alert in no acute distress. Maintaining good O2 saturations in the 90s on 2 L/min per nasal cannula. Has been afebrile. Hemodynamically stable. He is tolerating Jevity now at 30 MLS per hour with a goal of 65 MLS per hour. No new labs today. He remains on Symbicort, Singulair, Xopenex and prednisone taper. Robitussin as needed. Con tinues to work with a flutter valve. The patient is seen today October 19, 2023 in follow-up on the regular medical floor. He is currently laying flat in bed. Awake and alert in no acute distress. Follow-up chest x-ray showed no acute cardiopulmonary process. Evidence of COPD. He is maintaining O2 saturations in the 90s on room air. States he has been up with assistance in the hallway. He did have some issues with diarrhea last night. C. difficile screen was negative. He is continued on Symbicort, Xopenex, Singulair and a prednisone taper. Robitussin and Cepacol lozenges as needed. PEG tube exit site is clean and dry. Tolerating a tube feedings currently on Jevity at 40 MLS per hour with a goal of 65 MLS per hour. Objective - Vital Signs Vital signs: Vital Signs Temp 97.3 F L 10/19/23 00:35 Pulse 70 10/19/23 00:35 Resp 16 10/19/23 00:35 BP 151/75 10/19/23 00:35 Pulse Ox 97 10/19/23 00:35 FiO2 Intake & Output 10/18/23 10/19/23 10/19/23 18:59 06:59 18:59 Intake Total 40 Output Total 300 650 Balance -300 -610 Weight 75.5 kg Intake: Tube Feeding 40 Output: Urine 300 650 Other: Voiding Method Urinal Urinal # Voids 0 # Bowel Movements 0 4 - Exam GENERAL EXAM: Awake, pleasant 73-year-old male patient, resting in bed, on room air, in no apparent distress. HEAD: Normocephalic. EYES: Normal reaction of pupils, equal size. NOSE: Clear with pink turbinates. THROAT: No erythema or exudates. No evidence of yeast. No visible mass. NECK: No masses, no JVD. CHEST: No chest wall deformity. LUNGS: Equal air entry with few scattered rhonchi bilaterally. CVS: S1 and S2 normal with no audible murmur, regular rhythm. ABDOMEN: PEG tube exit site clean and dry. No hepatosplenomegaly, normal bowel sounds, no guarding or rigidity. SPINE: No scoliosis or deformity SKIN: No rashes CENTRAL NERVOUS SYSTEM: No focal deficits, tone is normal in all 4 extremities. EXTREMITIES: There is no peripheral edema. No clubbing, no cyanosis. Peripheral pulses are intact. - Labs CBC & Chem 7: 10/15/23 15:42 10/17/23 06:28 Assessment and Plan Assessment: Dysphagia secondary to difficulty swallowing a pill. EGD did not reveal any evidence of foreign body. Barium swallow reported dysmotility with tertiary co ntractions of the esophagus. Small hiatal hernia with mild gastroesophageal reflux disease. No surgical intervention planned. The patient was having aspiration while working with speech therapy and PEG tube placement was recommended. PEG tube placed October 15, 2023. Currently receiving Jevity 40 mL/h with a goal of 65 MLS per hour Left thyroid nodule measuring 2.9 cm to be followed up in the outpatient setting History of chronic obstructive pulmonary disease, currently inactive and stable History of obstructive pulmonary disease, currently inactive and stable Nonischemic cardiomyopathy History of ventricular tachycardia status post ablation, status post AICD History of congestive heart failure History of previous ventilatory dependent respiratory failure secondary to COPD exacerbations History of brain hemorrhage while on blood thinners Plan: The patient was seen and evaluated Medications and labs reviewed Chest x-ray showed no acute pulmonary process Continue bronchodilators Continue prednisone taper Continue Mucinex and flutter valve Tolerating his tube feeding well Cleared for discharge from the pulmonary standpoint Plan is for home with home care and patient declined subacute rehabilitation This patient was seen independently by the pulmonary nurse practitioner addressing pulmonary issues I have personally seen and examined the patient, performed the documentation and the assessment and plan as written. Number of minutes spent on the visit: 24.
[2023-10-19] MEDS: CHOLESTYRAMINE (WITH SUGAR) 4 GM PACKET PEG/G-TUBE SCH (10:17)
[2023-10-19 11:07] LABS: Blood Urea Nitrogen 16.5 mg/dL (9.0-27.0); Calcium 8.1 mg/dL (8.7-10.3); Carbon Dioxide 29.5 mmol/L (21.6-31.8); Chloride 103 mmol/L (96-109); Glucose 115 mg/dL (70-110); Magnesium 2.3 mg/dL (1.5-2.4); Potassium 3.8 mmol/L (3.5-5.5); Sodium 142 mmol/L (135-145)
--- NOTE | 2023-10-19 12:53 | P.PN ---
Subjective Progress Note Date: 10/19/23 This is a very pleasant 73-year-old male patient with a known history of nonischemic cardiomyopathy, ventricular tachycardia with previous ablation, AICD placement, hyperlipidemia, former smoker, chronic obstructive pulmonary disease. He presented to the emergency room yesterday after having difficulty swallowing after having a choking episode taking his pills. He did undergo EGD however no foreign body were noted in the esophagus. Following the procedure he was having ongoing issues with excess mucus cough and congestion and ended up being admitted. Soft tissue x-ray revealed suboptimal assessment of the subglottal airway on the frontal view. There nasopharyngeal and oropharyngeal airways domitila eared patent. No convincing radiopaque foreign body noted. CT scan of the brain revealed no acute intracranial process. Remote frontal lobe injury on the left. Angiogram revealed poor delineation of the esophagus at the level of the larynx. No evidence of free air. No organizing fluid outside the lumen. No evidence of dissection of the cervical internal carotids or vertebral arteries are any evidence of significant stenosis. There is a noted left thyroid gland nodule measuring 2.9 cm. White count 17.3. Hemoglobin 13.8. Platelets 139. Sodium 137. Potassium 4.5. BUN 15. Creatinine 0.76. Glucose 173. He is seen today in consultation on the regular medical floor. He is currently resting comfortably in bed. Awake and alert in no acute distress. He denies any shortness of breath, cough or congestion. Denies any difficulty swallowing this morning. He is maintaining O2 saturations in the upper 90s on room air. He is afebrile. Hemodynamically stable. 10/12. Patient seen and examined. CT soft tissue neck showed no definite evidence of abscess or abnormality. CTA chest showed no PE. States he feels slightly better compared to yesterday. Still very hesitant to try to eat. Speech evaluation ordered 10/13. Patient seen and examined. States he feels better compared to yesterday, was able to take his medications with thickener. Scheduled for esophagram today 10/14/2023 Patient is seen and evaluated in follow-up today and is being followed by general surgery. Patient was evaluated initially by GI underwent EGD with no obvious abnormalities noted. Patient continues to be followed by general surgery as patient reports continuing to have difficulty swallowing and not tolerating pills or oral intake. Patient underwent upper GI series and evaluated by speech scheduled to undergo modified barium swallow study today. Patient reports to having an episode of feeling as if he was vomiting and choking throughout the night requiring suctioning frequently. Patient currently NPO. Continue strict aspiration precautions. Patient also being followed by pulmonary maintained on breathing treatments for acute COPD exacerbation. 10/15/2023 Patient is seen in follow-up today reports he continues to feel terrible as he is unable to eat anything and not sleeping very well reports he has to continuously suction secretions from his mouth. Patient is being followed by pulmonary as well is being restarted on IV steroids as patient does have expiratory wheezing noted and continues with acute COPD exacerbation. General surgery following as well plans for PEG tube placement today. Patient was evaluated by speech and grossly aspirating and patient is agreeable to PEG tube. Dietary will be consulted as well as case management on arrangements for discharge planning for tube feeds. Patient is afebrile with no reports of chest pain or palpitations. Encouraged increased activity as tolerated as patient has been mostly lying in the bed. Will await surgical report and initiate tube feeds and PEG tube use once cleared by surgery. 10/16/2023 Patient is seen and evaluated today status post PEG tube placement with plans of initiating tube feedings this afternoon per surgery. Patient okay for medications through the PEG tube and home medications resumed. Patient continued on IV steroids with concerns of acute COPD exacerbation. Patient is afebrile denies chest pain or palpitations. Encouraged to increase activity as tolerated. Will need to discuss further with case management on discharge planning regarding tube feedings and the need for home care. 10/17/2023 Patient is seen and evaluated in follow-up today reporting he continues to have increased shortness of breath at night and difficulty in breathing requiring inhaler use. Will continue with breathing inhalational treatments and make as needed DuoNebs as well. Pulmonary is following patient is maintained on IV steroids. Patient sitting up in the chair today reports to feeling better. Patient with weakness will have PT/OT therapy evaluate the patient. Patient is adamant he is going home. 10/18/2023 Patient evaluated today sitting up in the chair family at the bedside. Patient continues to have mild shortness of breath at baseline. Patient on oxygen support. On duonebs. Electrolytes better today. Continues with coarse scattered ronchi and follow up chest xray today showing no pleural effusion, no consolidation, and no pneumothorax. No acute cardiopulmonary disease. COPD changes. He had 2 episodes of loose stool overnight and was incontinent. He is concerned he will not have control over his bowels. He is on metamucil. 10/19/2023 Patient is evaluated today resting in bed. He reports improvement in his shortness of breath. He continues on oxygen at 2 L of nasal cannula with adequate saturations likely he can be weaned off the oxygen support. He had a chest x-ray completed yesterday that shows no acute changes. He continues with the flutter valve and incentive spirometer. Patient reports multiple episodes of loose stool overnight he states that he has had stool about 9 times and was incontinent due to inability to get to the bathroom on time. Metamucil has been discontinued and we will add Questran to help with stool bulking. He continues on Jevity through the PEG tube goal running at 65 MLS per hour. Plan is for discharge home with a PEG tube in place and tube feedings. He does have some crusting and drainage around the PEG tube site would recommend to clean and apply a gauze dressing. REVIEW OF SYSTEMS: CONSTITUTIONAL: No fever, no malaise,. CARDIOVASCULAR: No chest pain, no palpitations, no syncope. PULMONARY: Reports of continued shortness of breath with cough, and excess amounts of sputum GASTROINTESTINAL: No diarrhea, no nausea, no vomiting, no abdominal pain. Patient is tolerating tube feeds NEUROLOGICAL: No headaches, no weakness PHYSICAL EXAMINATION: GENERAL: The patient is alert and oriented x3, not in any acute distress. Well developed, well nourished. Elderly appearing HEENT: Pupils are round and equally reacting to light. EOMI. No scleral icterus. No conjunctival pallor. Normocephalic, atraumatic. No pharyngeal erythema. No thyromegaly. CARDIOVASCULAR: S1 and S2 present. No murmurs, rubs, or gallops. PULMONARY: Diminished breath sounds bilaterally with some scattered expiratory wheezing noted. Nonretracting and no accessory muscle use ABDOMEN: Soft, nontender, nondistended, normoactive bowel sounds. No palpable organomegaly. PEG tube noted MUSCULOSKELETAL: No joint swelling or deformity. EXTREMITIES: No cyanosis, clubbing, or pedal edema. NEUROLOGICAL: Gross neurological examination did not reveal any focal deficits. Diffusely weak SKIN: No rashes. Assessment: Dyspnea, multifactorial likely secondary to COPD exacerbation as well as concerns of aspiration Pill induced esophagitis Dysphagia with silent aspiration noted on modified barium swallow, status post PEG tube placement on 10/15/2023 Diarrhea multiple episodes likely due to the new tube feedings we will add Questran and monitor C. difficile was negative Severe protein calorie malnutrition secondary to dysphagia with dysmotility Left vertebral artery stenosis history Hypertension COPD, acute exacerbation Left thyroid nodule measuring 2.9 cm to be followed up in the outpatient setting Nonischemic cardiomyopathy History of ventricular tachycardia status post ablation, status post AICD History of congestive heart failure, not in exacerbation History of previous ventilatory dependent respiratory failure secondary to COPD exacerbations 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 Speech therapy recommending strict n.p.o. General surgery evaluated and patient is status post PEG tube placement. Tube feedings being tolerated thus far. Okay for medications through the PEG tube at home medications reviewed and resumed. Continue n.p.o. and aspiration precautions with head of the bed elevated 30 to 45 degrees at all times. Patient is allowed to have ice chips Pulmonary following as well for COPD exacerbation and patient is continued on IV steroids as there was some wheezing noted. Continue breathing treatments and supplemental oxygen as needed. Wean FiO2 as tolerated Consult to case management/social work arranging for discharge planning as patient will be needing tube feedings. Patient with generalized weakness and prolonged hospitalization will have physical therapy evaluate the patient. Patient is adamant he is going home and will have home care and rehab in his home. Patient will not go to [facility]. Due to multiple complex medical issues, prognosis is guarded Encouraged increase activity as tolerated The impression and plan of care has been dictated by Pau Fritz, Nurse Practitioner as directed. Dr. Zeferino MD I have performed a history and physical examination and medical decision making of this patient, discussed the same with the dictator, and agree with the dictators assessment and plan as written, documented as a scribe. Based on total visit time, I have performed more than 50% of this visit. Objective - Vital Signs Vital signs: Vital Signs Temp 98.3 F 10/19/23 08:00 Pulse 76 10/19/23 12:01 Resp 20 10/19/23 08:00 BP 104/65 10/19/23 12:01 Pulse Ox 97 10/19/23 09:04 FiO2 Intake & Output 10/18/23 10/19/23 10/19/23 18:59 06:59 18:59 Intake Total 40 Output Total 300 650 Balance -300 -610 Weight 75.5 kg Intake: Tube Feeding 40 Output: Urine 300 650 Other: Voiding Method Urinal Urinal Urinal # Voids 0 1 # Bowel Movements 0 4 - Labs CBC & Chem 7: 10/15/23 15:42 10/19/23 05:53 Labs: Abnormal Lab Results - Last 24 Hours (Table) 10/19/23 Range/Units 05:53 BUN/Creatinine Ratio 27.50 H (12.00-20.00) Ratio Glucose 115 H (70-110) mg/dL Calcium 8.1 L (8.7-10.3) mg/dL Assessment and Plan Time with Patient: Less than 30
--- NOTE | 2023-10-19 14:41 | P.PN ---
Subjective Progress Note Date: 10/19/23 Resting comfortably. Tube feeds at 40 cc/h. No reports of pain or discomfort. Tube feeds per dietitian. Objective - Vital Signs Vital signs: Vital Signs Temp 98.2 F 10/19/23 14:00 Pulse 69 10/19/23 14:00 Resp 18 10/19/23 14:00 BP 128/68 10/19/23 14:00 Pulse Ox 95 10/19/23 14:00 FiO2 Intake & Output 10/18/23 10/19/23 10/19/23 18:59 06:59 18:59 Intake Total 40 Output Total 300 650 600 Balance -300 -610 -600 Weight 75.5 kg Intake: Tube Feeding 40 Output: Urine 300 650 600 Other: Voiding Method Urinal Urinal Urinal # Voids 0 1 # Bowel Movements 0 4 - Labs CBC & Chem 7: 10/15/23 15:42 10/19/23 05:53 Labs: Abnormal Lab Results - Last 24 Hours (Table) 10/19/23 Range/Units 05:53 BUN/Creatinine Ratio 27.50 H (12.00-20.00) Ratio Glucose 115 H (70-110) mg/dL Calcium 8.1 L (8.7-10.3) mg/dL
[2023-10-20 11:08] LABS: Basophils # (A) 0.08 X 10*3/uL (0.00-0.10); Basophils % (A) 0.6 %; Eosinophils # (A) 0.42 X 10*3/uL (0.04-0.35); Eosinophils % (A) 3.1 %; HCT 38.8 % (39.6-50.0); HGB 12.8 g/dL (13.0-17.0); Lymphocytes # (A) 3.27 X 10*3/uL (0.90-5.00); Lymphocytes % (A) 24.2 %; MCV 93.9 FL (80.0-97.0); Mean Platelet Volume 10.8 FL (9.5-12.2); Monocytes # (A) 1.12 X 10*3/uL (0.20-1.00); Monocytes % (A) 8.3 %; NRBC Per 100 WBC 0 X 10*3/uL (0.00-0.01); Neutrophils # (A) 8.36 X 10*3/uL (1.80-7.70); Neutrophils % (A) 61.7 %; Platelet Count 158 X 10*3/uL (140-440); RBC 4.13 X 10*6/uL (4.40-5.60); RDW 15.2 % (11.5-14.5); WBC 13.53 X 10*3/uL (4.50-10.00)
[2023-10-20 11:19] LABS: BUN/Creat Ratio 21.83 Ratio (12.00-20.00); Blood Urea Nitrogen 13.1 mg/dL (9.0-27.0); Calcium 8.1 mg/dL (8.7-10.3); Carbon Dioxide 30.8 mmol/L (21.6-31.8); Chloride 102 mmol/L (96-109); Glucose 110 mg/dL (70-110); Potassium 3.7 mmol/L (3.5-5.5); Sodium 139 mmol/L (135-145)
[2023-10-20] MEDS: PSYLLIUM HUSK 100% 6 GM PACKET PO SCH (12:14)
--- NOTE | 2023-10-20 15:57 | P.PN ---
Subjective Progress Note Date: 10/20/23 This is a very pleasant 73-year-old male patient with a known history of nonischemic cardiomyopathy, ventricular tachycardia with previous ablation, AICD placement, hyperlipidemia, former smoker, chronic obstructive pulmonary disease. He presented to the emergency room yesterday after having difficulty swallowing after having a choking episode taking his pills. He did undergo EGD however no foreign body were noted in the esophagus. Following the procedure he was having ongoing issues with excess mucus cough and congestion and ended up being admitted. Soft tissue x-ray revealed suboptimal assessment of the subglottal airway on the frontal view. There nasopharyngeal and oropharyngeal airways a ppeared patent. No convincing radiopaque foreign body noted. CT scan of the brain revealed no acute intracranial process. Remote frontal lobe injury on the left. Angiogram revealed poor delineation of the esophagus at the level of the larynx. No evidence of free air. No organizing fluid outside the lumen. No evidence of dissection of the cervical internal carotids or vertebral arteries are any evidence of significant stenosis. There is a noted left thyroid gland nodule measuring 2.9 cm. White count 17.3. Hemoglobin 13.8. Platelets 139. Sodium 137. Potassium 4.5. BUN 15. Creatinine 0.76. Glucose 173. He is seen today in consultation on the regular medical floor. He is currently resting comfortably in bed. Awake and alert in no acute distress. He denies any shortness of breath, cough or congestion. Denies any difficulty swallowing this morning. He is maintaining O2 saturations in the upper 90s on room air. He is afebrile. Hemodynamically stable. The patient is seen today October 12, 2023 in follow-up on the regular medical floor. He is currently resting comfortably in bed. Awake and alert in no acute distress. He is still having ongoing issues with difficulty swallowing pills. He is complaining of a sore throat. CT angiogram ruled out pulmonary embolism. There is left lower lobe airspace opacities with possible developing pneumonia. Mild to moderate emphysema. Left thyroid nodule located in the superior mediastinum. Small hiatal hernia. CT soft tissue neck revealed no definite evidence for abscess or significant abnormality. No lymphadenopathy noted. Thyroid nodule noted in the left superior mediastinum. No new labs today. He remains on his home Xopenex. Remains on Solu-Medrol. Swallow evaluation pending. The patient is seen today October 13, 2023 in follow-up on the regular medical floor. He is currently sitting up in bed. Awake and alert in no acute distress. He is still having some difficulty with swallowing. Fluoroscopy of the upper GI with esophagus has been ordered. He remains on bronchodilators and Solu-Medrol. White count 16.2. Hemoglobin 11.7. Platelets 135. Sodium 144. Potassium 4.0. Bicarb 25. BUN 20. Creatinine 0.7. Glucose 150. The patient is seen today October 14, 2023 in follow-up on the regular medical floor. He is currently resting in bed. Awake and alert no acute distress. Maintaining good O2 saturations in the upper 90s on room air. He is afebrile. Hemodynamically stable. He is still having ongoing issues with difficulty in swallowing. Swallow did reveal a delay in passage of contrast in the stomach secondary to dysmotility and tertiary contractions of the esophagus. Small hiatal hernia without stricture. Speech therapy to be working with the patient again today. The patient is seen today October 15, 2023 in follow-up on the regular medical floor. He is resting in bed. Awake and alert in no acute distress. He continues to maintain good O2 saturations in the 90s on room air. Unfortunately he is still unable to have any effective swallow. Speech therapy evaluated him yesterday. The patient is aspirating. PEG tube recommendations were made and the plan is for PEG tube insertion today. He remains on bronchodilators, Solu- Medrol, Singulair. 0.45% normal saline at 75 MLS per hour. The patient is seen today October 16, 2023 in follow-up on the regular medical floor. He is awake and alert in no acute distress. Sitting up in a chair at the bedside. Maintaining good O2 saturations in the 90s on room air. He has 0.45 normal saline at 75 MLS per hour. He did receive a PEG tube placement yesterday. To be initiated on tube feedings later this afternoon. Sodium 144. Potassium 3.8. Bicarb 26. BUN 21. Creatinine 0.7. Glucose 121. He remains on Symbicort, Xopenex, Singulair and Solu-Medrol. The patient is seen today October 17, 2023 in follow-up on the regular medical floor. He is sitting up in bed. Awake and alert in no acute distress. He is maintaining good O2 saturations in the 90s on 2 L/min per nasal cannula. He has been afebrile. Hemodynamically stable. He is being nourished now with Jevity at 15 mL/h with a goal of 65 MLS per hour. Potassium 3.8. Calcium 3.4. Phosphorus 2.4. He is continued on Symbicort, Singulair, Xopenex, Solu-Medrol. The patient is seen today October 18, 2023 in follow-up on the regular medical floor. He is resting comfortably in bed. Awake and alert in no acute distress. Maintaining good O2 saturations in the 90s on 2 L/min per nasal cannula. Has been afebrile. Hemodynamically stable. He is tolerating Jevity now at 30 MLS per hour with a goal of 65 MLS per hour. No new labs today. He remains on Symbicort, Singulair, Xopenex and prednisone taper. Robitussin as needed. Co ntinues to work with a flutter valve. The patient is seen today October 19, 2023 in follow-up on the regular medical floor. He is currently laying flat in bed. Awake and alert in no acute distress. Follow-up chest x-ray showed no acute cardiopulmonary process. Evidence of COPD. He is maintaining O2 saturations in the 90s on room air. States he has been up with assistance in the hallway. He did have some issues with diarrhea last night. C. difficile screen was negative. He is continued on Symbicort, Xopenex, Singulair and a prednisone taper. Robitussin and Cepacol lozenges as needed. PEG tube exit site is clean and dry. Tolerating a tube feedings currently on Jevity at 40 MLS per hour with a goal of 65 MLS per hour. On today's evaluation of 10/20/2023, I am seeing the patient for a follow-up. The patient is calm and comfortable and the patient continues to receive enteral feeding for nutritional support. No abdominal distention. No nausea or emesis. The patient remains on 2 L of oxygen by nasal cannula with a pulse ox of 95%. The patient has a white cell count of 13.5 with a hemoglobin 12.8, BUN is a 50 with a creatinine of 0.6. Stool for C. difficile has been negative and the patient is currently on Jevity for enteral feeding and nutritional support. Patient is known to have nonischemic cardiomyopathy with previous history of nonsustained V. tach and the patient has an AICD in place in addition to COPD and hyperlipidemia. Objective - Vital Signs Vital signs: Vital Signs Temp 98.2 F 10/20/23 14:00 Pulse 76 10/20/23 15:41 Resp 18 10/20/23 14:00 BP 120/67 10/20/23 14:00 Pulse Ox 95 10/20/23 14:00 FiO2 Intake & Output 10/19/23 10/20/23 10/20/23 18:59 06:59 18:59 Intake Total 300 195 Output Total 600 710 325 Balance -300 -515 -325 Weight 77.5 kg Intake: Tube Feeding 45 Other 300 150 Output: Urine 600 710 325 Other: Voiding Method Urinal Urinal # Voids 1 - Exam GENERAL EXAM: Awake, pleasant 73-year-old male patient, resting in bed, on room air, in no apparent distress. HEAD: Normocephalic. EYES: Normal reaction of pupils, equal size. NOSE: Clear with pink turbinates. THROAT: No erythema or exudates. No evidence of yeast. No visible mass. NECK: No masses, no JVD. CHEST: No chest wall deformity. LUNGS: Equal air entry with few scattered rhonchi bilaterally. CVS: S1 and S2 normal with no audible murmur, regular rhythm. ABDOMEN: PEG tube exit site clean and dry. No hepatosplenomegaly, normal bowel sounds, no guarding or rigidity. SPINE: No scoliosis or deformity SKIN: No rashes CENTRAL NERVOUS SYSTEM: No focal deficits, tone is normal in all 4 extremities. EXTREMITIES: There is no peripheral edema. No clubbing, no cyanosis. Peripheral pulses are intact. - Labs CBC & Chem 7: 10/20/23 06:48 10/20/23 06:48 Labs: Abnormal Lab Results - Last 24 Hours (Table) 10/20/23 10/20/23 Range/Units 06:48 06:48 WBC 13.53 H (4.50-10.00) X 10*3/uL RBC 4.13 L (4.40-5.60) X 10*6/uL Hgb 12.8 L (13.0-17.0) g/dL Hct 38.8 L (39.6-50.0) % RDW 15.2 H (11.5-14.5) % Immature Gran # 0.28 H (0.00-0.04) X 10*3/uL Neutrophils # 8.36 H (1.80-7.70) X 10*3/uL Monocytes # 1.12 H (0.20-1.00) X 10*3/uL Eosinophils # 0.42 H (0.04-0.35) X 10*3/uL BUN/Creatinine Ratio 21.83 H (12.00-20.00) Ratio Calcium 8.1 L (8.7-10.3) mg/dL Assessment and Plan Plan: Dysphagia secondary to difficulty swallowing a pill. EGD did not reveal any e vidence of foreign body. Barium swallow reported dysmotility with tertiary contractions of the esophagus. Small hiatal hernia with mild gastroesophageal reflux disease. No surgical intervention planned. The patient was having aspiration while working with speech therapy and PEG tube placement was recommended. PEG tube placed October 15, 2023. Currently receiving Jevity 40 mL/h with a goal of 65 MLS per hour Left thyroid nodule measuring 2.9 cm to be followed up in the outpatient setting History of chronic obstructive pulmonary disease, currently inactive and stable History of obstructive pulmonary disease, currently inactive and stable Nonischemic cardiomyopathy History of ventricular tachycardia status post ablation, status post AICD History of congestive heart failure History of previous ventilatory dependent respiratory failure secondary to COPD exacerbations History of brain hemorrhage while on blood thinners Plan: Patient is currently on 2 L of oxygen by nasal cannula. Overall respiratory status is stable Chest x-ray showed no acute pulmonary process Continue bronchodilators Continue prednisone taper Continue Mucinex and flutter valve Tolerating his tube feeding well, cancer and is currently on Jevity Cleared for discharge from the pulmonary standpoint Plan is for home with home care and patient declined subacute rehabilitation
--- NOTE | 2023-10-20 16:32 | P.PN ---
Subjective Progress Note Date: 10/20/23 CHIEF COMPLAINT: Dysphagia HISTORY OF PRESENT ILLNESS: Patient status post PEG tube placement. Denies any abdominal pain. Denies any nausea or vomiting. Patient tolerating tube feeds at 45 mL/h. He is having flatus. Patient scheduled for discharge today. PHYSICAL EXAM: VITAL SIGNS: Reviewed. GENERAL: Well-developed in no acute distress. ABDOMEN: Soft. Nondistended. PEG tube site dry and intact. NEUROLOGIC: Alert and oriented. Cranial nerves II through XII grossly intact. ASSESSMENT: 1. Dysphagia 2. Dysmotility disorder of the esophagus PLAN: -Continue tube feeds as per dietitian recommendations -Patient can be discharged from surgical standpoint Physician Computer Networking Instructor note has been reviewed by physician. Signing provider agrees with the documented findings, assessment, and plan of care. I have personally seen and examined the patient, reviewed the BE[employer] DEPARTMENT SUPERVISOR /PAs history, exam and MDM and agree with the assessment and plan as written. Based on total visit time, I have performed more than 50% of the visit. As above: Patient doing well today. Tolerating tube feeds at goal. Bolster loosened slightly. Will sign off. Please call if needed. Objective - Vital Signs Vital signs: Vital Signs Temp 98.2 F 10/20/23 14:00 Pulse 76 10/20/23 15:41 Resp 18 10/20/23 14:00 BP 120/67 10/20/23 14:00 Pulse Ox 95 10/20/23 14:00 FiO2 Intake & Output 10/19/23 10/20/23 10/20/23 18:59 06:59 18:59 Intake Total 300 195 Output Total 600 710 325 Balance -300 -515 -325 Weight 77.5 kg Intake: Tube Feeding 45 Other 300 150 Output: Urine 600 710 325 Other: Voiding Method Urinal Urinal # Voids 1 - Labs CBC & Chem 7: 10/20/23 06:48 10/20/23 06:48 Labs: Abnormal Lab Results - Last 24 Hours (Table) 10/20/23 10/20/23 Range/Units 06:48 06:48 WBC 13.53 H (4.50-10.00) X 10*3/uL RBC 4.13 L (4.40-5.60) X 10*6/uL Hgb 12.8 L (13.0-17.0) g/dL Hct 38.8 L (39.6-50.0) % RDW 15.2 H (11.5-14.5) % Immature Gran # 0.28 H (0.00-0.04) X 10*3/uL Neutrophils # 8.36 H (1.80-7.70) X 10*3/uL Monocytes # 1.12 H (0.20-1.00) X 10*3/uL Eosinophils # 0.42 H (0.04-0.35) X 10*3/uL BUN/Creatinine Ratio 21.83 H (12.00-20.00) Ratio Calcium 8.1 L (8.7-10.3) mg/dL
--- NOTE | 2023-10-20 20:00 | P.PN ---
Progress Note - Text Progress Note Date: 10/20/23 This is a very pleasant 73-year-old male patient with a known history of nonischemic cardiomyopathy, ventricular tachycardia with previous ablation, AICD placement, hyperlipidemia, former smoker, chronic obstructive pulmonary disease. He presented to the emergency room yesterday after having difficulty swallowing after having a choking episode taking his pills. He did undergo EGD however no foreign body were noted in the esophagus. Following the procedure he was having ongoing issues with excess mucus cough and congestion and ended up being admitted. Soft tissue x-ray revealed suboptimal assessment of the subglottal airway on the frontal view. There nasopharyngeal and oropharyngeal airways appeared patent. No convincing radiopaque foreign body noted. CT scan of the brain revealed no acute intracranial process. Remote frontal lobe injury on the left. Angiogram revealed poor delineation of the esophagus at the level of the larynx. No evidence of free air. No organizing fluid outside the lumen. No evidence of dissection of the cervical internal carotids or vertebral arteries are any evidence of significant stenosis. There is a noted left thyroid gland nodule measuring 2.9 cm. White count 17.3. Hemoglobin 13.8. Platelets 139. Sodium 137. Potassium 4.5. BUN 15. Creatinine 0.76. Glucose 173. He is seen today in consultation on the regular medical floor. He is currently resting comfortably in bed. Awake and alert in no acute distress. He denies any short ness of breath, cough or congestion. Denies any difficulty swallowing this morning. He is maintaining O2 saturations in the upper 90s on room air. He is afebrile. Hemodynamically stable. 10/12. Patient seen and examined. CT soft tissue neck showed no definite evidence of abscess or abnormality. CTA chest showed no PE. States he feels slightly better compared to yesterday. Still very hesitant to try to eat. Speech evaluation ordered 10/13. Patient seen and examined. States he feels better compared to yesterday, was able to take his medications with thickener. Scheduled for esophagram today 10/14/2023 Patient is seen and evaluated in follow-up today and is being followed by general surgery. Patient was evaluated initially by GI underwent EGD with no obvious abnormalities noted. Patient continues to be followed by general surgery as patient reports continuing to have difficulty swallowing and not tolerating pills or oral intake. Patient underwent upper GI series and eval uated by speech scheduled to undergo modified barium swallow study today. Patient reports to having an episode of feeling as if he was vomiting and choking throughout the night requiring suctioning frequently. Patient currently NPO. Continue strict aspiration precautions. Patient also being followed by pulmonary maintained on breathing treatments for acute COPD exacerbation. 10/15/2023 Patient is seen in follow-up today reports he continues to feel terrible as he is unable to eat anything and not sleeping very well reports he has to continuously suction secretions from his mouth. Patient is being followed by pulmonary as well is being restarted on IV steroids as patient does have expiratory wheezing noted and continues with acute COPD exacerbation. General surgery following as well plans for PEG tube placement today. Patient was evaluated by speech and grossly aspirating and patient is agreeable to PEG tube. Dietary will be consulted as well as case management on arrangements for discharge planning for tube feeds. Patient is afebrile with no reports of chest pain or palpitations. Encouraged increased activity as tolerated as patient has been mostly lying in the bed. Will await surgical report and initiate tube feeds and PEG tube use once cleared by surgery. 10/16/2023 Patient is seen and evaluated today status post PEG tube placement with plans of initiating tube feedings this afternoon per surgery. Patient okay for medications through the PEG tube and home medications resumed. Patient continued on IV steroids with concerns of acute COPD exacerbation. Patient is afebrile denies chest pain or palpitations. Encouraged to increase activity as tolerated. Will need to discuss further with case management on discharge planning regarding tube feedings and the need for home care. 10/17/2023 Patient is seen and evaluated in follow-up today reporting he continues to have increased shortness of breath at night and difficulty in breathing requiring inhaler use. Will continue with breathing inhalational treatments and make as needed DuoNebs as well. Pulmonary is following patient is maintained on IV steroids. Patient sitting up in the chair today reports to feeling better. Patient with weakness will have PT/OT therapy evaluate the patient. Patient is adamant he is going home. 10/18/2023 Patient evaluated today sitting up in the chair family at the bedside. Patient continues to have mild shortness of breath at baseline. Patient on oxygen support. On duonebs. Electrolytes better today. Continues with coarse scattered ronchi and follow up chest xray today showing no pleural effusion, no consolidation, and no pneumothorax. No acute cardiopulmonary disease. COPD changes. He had 2 episodes of loose stool overnight and was incontinent. He is concerned he will not have control over his bowels. He is on metamucil. 10/19/2023 Patient is evaluated today resting in bed. He reports improvement in his shortness of breath. He continues on oxygen at 2 L of nasal cannula with adequate saturations likely he can be weaned off the oxygen support. He had a chest x-ray completed yesterday that shows no acute changes. He continues with the flutter valve and incentive spirometer. Patient reports multiple episodes of loose stool overnight he states that he has had stool about 9 times and was incontinent due to inability to get to the bathroom on time. Metamucil has been discontinued and we will add Questran to help with stool bulking. He continues on Jevity through the PEG tube goal running at 65 MLS per hour. Plan is for discharge home with a PEG tube in place and tube feedings. He does have some crusting and drainage around the PEG tube site would recommend to clean and apply a gauze dressing. October 20: Patient had declined rehab. Spoke to 7th grade social studies teacher. That he had spoken to the patient again later today. Patient decided to go to rehab. Tolerating PEG tube feeding. No nausea vomiting. Stool negative for C. difficile. Active Medications Amiodarone HCl (Amiodarone 200 Mg Tab) 200 mg PO DAILY [facility] Last Admin: 10/20/23 09:49 Dose: 200 mg Aspirin (Aspirin 81 Mg) 81 mg PO DAILY [facility] Last Admin: 10/20/23 09:49 Dose: 81 mg Atorvastatin Calcium (Atorvastatin 80 Mg Tab) 80 mg PO HS [facility] Last Admin: 10/19/23 20:19 Dose: 80 mg Benzocaine/Menthol (Benzocaine/Menthol Lozeng 1 Each Lozenge) 1 each MUCOUS MEM Q4HR PRN PRN Reason: Sore Throat Last Admin: 10/12/23 17:40 Dose: 1 each Budesonide/Formoterol Fumarate (Symbicort 160-4.5 Mcg Inhaler) 2 puff INHALATION RT-BID [facility] Last Admin: 10/20/23 08:36 Dose: 2 puff Ezetimibe (Ezetimibe 10 Mg Tab) 10 mg PO DAILY [facility] Last Admin: 10/20/23 09:50 Dose: 10 mg Guaifenesin/Dextromethorphan (Guaifenesin-Dm 100-10mg/5ml 10 Ml Cup) 10 ml PO QID [facility] Last Admin: 10/20/23 18:56 Dose: 10 ml Metoprolol Succinate (Metoprolol Succinate (Er) 50 Mg Tab.Er.24h) 50 mg PO DAILY@1200 [facility] Last Admin: 10/20/23 12:14 Dose: 50 mg Mexiletine HCl (Mexiletine 200 Mg Cap) 200 mg PO Q8H [facility] Last Admin: 10/20/23 18:56 Dose: 200 mg Montelukast Sodium (Montelukast 10 Mg Tab) 10 mg PO HS [facility] Last Admin: 10/19/23 20:19 Dose: 10 mg Naloxone HCl (Naloxone 0.4 Mg/Ml 1 Ml Vial) 0.2 mg IVP Q2M PRN PRN Reason: Opioid Reversal Non-Formulary Medication (Levalbuterol Hfa Inhaler) 1 puff INHALATION RT-Q6H PRN PRN Reason: Shortness Of Breath Non-Formulary Medication (Levalbuterol Nebulized) 1.25 mg INHALATION RT-TID [facility] Last Admin: 10/20/23 15:28 Dose: 1.25 mg Ondansetron HCl (Ondansetron 4 Mg/2 Ml Vial) 4 mg IVP Q8HR PRN PRN Reason: Nausea Pantoprazole Sodium (Pantoprazole 40 Mg/10 Ml Vial) 40 mg IVP BID [facility] Last Admin: 10/20/23 09:50 Dose: 40 mg Prednisone (Prednisone 10 Mg Tab) 30 mg PO DAILY [facility] Last Admin: 10/20/23 09:49 Dose: 30 mg Psyllium Hydrophilic Mucilloid (Psyllium Husk 100% 6 Gm Packet) 6 gm PO BID [facility] Last Admin: 10/20/23 12:14 Dose: 6 gm Sacubitril/Valsartan (Sacubitril/Valsartan 24 Mg-26 Mg Tablet) 1 each PO BID [facility] Last Admin: 10/20/23 09:50 Dose: 1 each Spironolactone (Spironolactone 25 Mg Tab) 25 mg PO DAILY [facility] Last Admin: 10/20/23 09:49 Dose: 25 mg On examination: VITAL SIGNS: [98.2, 77, 18, 120/67, 95% on 2 L] GENERAL APPEARANCE: Reclining in bed, comfortable HEENT: Normal external appearance of nose and ear. Oral cavity normal EYES: Pupils equal. Conjunctiva normal. NECK: JVD not raised. Mass not palpable. RESPIRATORY: Respiratory effort normal. Lungs clear to auscultation. CARDIOVASCULAR: First and second sounds normal. No edema. ABDOMEN: Soft. Liver and spleen not palpable. No tenderness. No mass palpable. PEG tube feeding PSYCHIATRY: Alert and oriented x3. Mood and affect normal. INVESTIGATIONS, reviewed in the clinical context: October 20: White count 13.5 hemoglobin 12.8 platelets 158 potassium 3.7 creatinine 0.6 Assessment: Dyspnea, multifactorial likely secondary to COPD exacerbation as well as concerns of aspiration Pill induced esophagitis Dysphagia with silent aspiration noted on modified barium swallow, status post PEG tube placement on 10/15/2023 Diarrhea multiple episodes likely due to the new tube feedings we will add Questran and monitor C. difficile was negative Severe protein calorie malnutrition secondary to dysphagia with dysmotility Left vertebral artery stenosis history Hypertension COPD, acute exacerbation Left thyroid nodule measuring 2.9 cm to be followed up in the outpatient setting Nonischemic cardiomyopathy History of ventricular tachycardia status post ablation, status post AICD History of congestive heart failure, not in exacerbation History of previous ventilatory dependent respiratory failure secondary to COPD exacerbations History of brain hemorrhage while on blood thinners GI prophylaxis DVT prophylaxis Full code Patient is tolerating tube feeding. Spoke to 7th grade social studies teacher. Patient initially declined rehab now agreeable to the same. Other medication treatment plan to continue.
--- NOTE | 2023-10-21 13:36 | P.DS ---
Providers Date of admission: 10/13/23 15:31 Expected date of discharge: 10/21/23 Attending physician: Trey Doshi Consults: 10/10/23 20:33 Consult Physician Routine Consulting Provider: Irving Olson Consult Reason/Comments: known Do you want consulting provider notified?: Yes Primary care physician: [facility] Course: This is a very pleasant 73-year-old male patient with a known history of nonischemic cardiomyopathy, ventricular tachycardia with previous ablation, AICD placement, hyperlipidemia, former smoker, chronic obstructive pulmonary disease. He presented to the emergency room yesterday after having difficulty swallowing after having a choking episode taking his pills. He did undergo EGD however no foreign body were noted in the esophagus. Following the procedure he was having ongoing issues with excess mucus cough and congestion and ended up being admitted. Soft tissue x-ray revealed suboptimal assessment of the subglottal airway on the frontal view. There nasopharyngeal and oropharyngeal airways appeared patent. No convincing radiopaque foreign body noted. CT scan of the brain revealed no acute intracranial process. Remote frontal lobe injury on the left. Angiogram revealed poor delineation of the esophagus at the level of the larynx. No evidence of free air. No organizing fluid outside the lumen. No evidence of dissection of the cervical internal carotids or vertebral arteries are any evidence of significant stenosis. There is a noted left thyroid gland nodule measuring 2.9 cm. White count 17.3. Hemoglobin 13.8. Platelets 139. Sodium 137. Potassium 4.5. BUN 15. Creatinine 0.76. Glucose 173. He is seen today in consultation on the regular medical floor. He is currently resting comfortably in bed. Awake and alert in no acute distress. He denies any shortness of breath, cough or congestion. Denies any difficulty swallowing this morning. He is maintaining O2 saturations in the upper 90s on room air. He is afebrile. Hemodynamically stable. 10/12. Patient seen and examined. CT soft tissue neck showed no definite evidence of abscess or abnormality. CTA chest showed no PE. States he feels slightly better compared to yesterday. Still very hesitant to try to eat. Speech evaluation ordered 10/13. Patient seen and examined. States he feels better compared to yesterday, was able to take his medications with thickener. Scheduled for esophagram today 10/14/2023 Patient is seen and evaluated in follow-up today and is being followed by general surgery. Patient was evaluated initially by GI underwent EGD with no obvious abnormalities noted. Patient continues to be followed by general surgery as patient reports continuing to have difficulty swallowing and not tolerating pills or oral intake. Patient underwent upper GI series and evaluated by speech scheduled to undergo modified barium swallow study today. Patient reports to having an episode of feeling as if he was vomiting and choking throughout the night requiring suctioning frequently. Patient currently NPO. Continue strict aspiration precautions. Patient also being followed by pulmonary maintained on breathing treatments for acute COPD exacerbation. 10/15/2023 Patient is seen in follow-up today reports he continues to feel terrible as he is unable to eat anything and not sleeping very well reports he has to didier nuously suction secretions from his mouth. Patient is being followed by pulmonary as well is being restarted on IV steroids as patient does have expiratory wheezing noted and continues with acute COPD exacerbation. General surgery following as well plans for PEG tube placement today. Patient was evaluated by speech and grossly aspirating and patient is agreeable to PEG tube. Dietary will be consulted as well as case management on arrangements for discharge planning for tube feeds. Patient is afebrile with no reports of chest pain or palpitations. Encouraged increased activity as tolerated as patient has been mostly lying in the bed. Will await surgical report and initiate tube feeds and PEG tube use once cleared by surgery. 10/16/2023 Patient is seen and evaluated today status post PEG tube placement with plans of initiating tube feedings this afternoon per surgery. Patient okay for medications through the PEG tube and home medications resumed. Patient continued on IV steroids with concerns of acute COPD exacerbation. Patient is afebrile denies chest pain or palpitations. Encouraged to increase activity as tolerated. Will need to discuss further with case management on discharge planning regarding tube feedings and the need for home care. 10/17/2023 Patient is seen and evaluated in follow-up today reporting he continues to have increased shortness of breath at night and difficulty in breathing requiring inhaler use. Will continue with breathing inhalational treatments and make as needed DuoNebs as well. Pulmonary is following patient is maintained on IV steroids. Patient sitting up in the chair today reports to feeling better. Patient with weakness will have PT/OT therapy evaluate the patient. Patient is adamant he is going home. 10/18/2023 Patient evaluated today sitting up in the chair family at the bedside. Patient continues to have mild shortness of breath at baseline. Patient on oxygen support. On duonebs. Electrolytes better today. Continues with coarse scattered ronchi and follow up chest xray today showing no pleural effusion, no consolidation, and no pneumothorax. No acute cardiopulmonary disease. COPD changes. He had 2 episodes of loose stool overnight and was incontinent. He is concerned he will not have control over his bowels. He is on metamucil. 10/19/2023 Patient is evaluated today resting in bed. He reports improvement in his shortness of breath. He continues on oxygen at 2 L of nasal cannula with adequate saturations likely he can be weaned off the oxygen support. He had a chest x-ray completed yesterday that shows no acute changes. He continues with the flutter valve and incentive spirometer. Patient reports multiple episodes of loose stool overnight he states that he has had stool about 9 times and was incontinent due to inability to get to the bathroom on time. Metamucil has been discontinued and we will add Questran to help with stool bulking. He continues on Jevity through the PEG tube goal running at 65 MLS per hour. Plan is for discharge home with a PEG tube in place and tube feedings. He does have some crusting and drainage around the PEG tube site would recommend to clean and apply a gauze dressing. October 20: Patient had declined rehab. Spoke to social service technician. That he had spoken to the patient again later today. Patient decided to go to rehab. Tolerating PEG tube feeding. No nausea vomiting. Stool negative for C. difficile. October 21: No diarrhea. Tolerating PEG tube feeding well. Has been accepted at rehab. Questions answered On examination: VITAL SIGNS: 98, 76, 14, 125 x 75, 93% room air GENERAL APPEARANCE: Reclining in bed, comfortable HEENT: Normal external appearance of nose and ear. Oral cavity normal EYES: Pupils equal. Conjunctiva normal. NECK: JVD not raised. Mass not palpable. RESPIRATORY: Respiratory effort normal. Lungs clear to auscultation. CARDIOVASCULAR: First and second sounds normal. No edema. ABDOMEN: Soft. Liver and spleen not palpable. No tenderness. No mass palpable. PEG tube feeding PSYCHIATRY: Alert and oriented x3. Mood and affect normal. INVESTIGATIONS, reviewed in the clinical context: February 26: White count 13.5 hemoglobin 12.8 platelets 158 potassium 3.7 creatinine 0.6 Assessment: Dyspnea, multifactorial likely secondary to COPD exacerbation as well as concerns of aspiration Pill induced esophagitis Dysphagia with silent aspiration noted on modified barium swallow, status post PEG tube placement on 10/15/2023. N.p.o. Acute diarrhea secondary to tube feeding. Resolved. Severe protein calorie malnutrition secondary to dysphagia with dysmotility Left vertebral artery stenosis history Hypertension COPD, acute exacerbation Left thyroid nodule measuring 2.9 cm to be followed up in the outpatient setting Nonischemic cardiomyopathy History of ventricular tachycardia status post ablation, status post AICD Chronic congestive heart failure, EF not known History of previous ventilatory dependent respiratory failure secondary to COPD exacerbations History of brain hemorrhage while on blood thinners Full code Disposition: Rehab at [facility] Labs: CBC/BMP: 3 days Patient Condition at Discharge: Fair Plan - Discharge Summary New Discharge Prescriptions: New Psyllium Husk 100% [Metamucil Packet] 6 gm PO BID #60 packet Continue Montelukast [Singulair] 10 mg PO HS Spironolactone [Aldactone] 25 mg PO DAILY Levalbuterol Hfa Inhaler [Xopenex Hfa Inhaler] 1 puff INHALATION RT-Q6H PRN PRN Reason: Shortness Of Breath Levalbuterol Nebulized [Xopenex Nebulized] 1.25 mg INHALATION RT-TID predniSONE 5 mg PO DAILY Aspirin EC [Ecotrin Low Dose] 81 mg PO DAILY #90 tab Atorvastatin [Lipitor] 80 mg PO HS Metoprolol Succinate (ER) [Toprol XL] 50 mg PO DAILY@1200 #30 tab Sacubitril/Valsartan [Entresto 24 mg-26 mg Tablet] 1 tab PO BID Mexiletine HCl 200 mg PO Q8H Ezetimibe [Zetia] 10 mg PO DAILY #90 tab Amiodarone [Cordarone] 200 mg PO DAILY No Action Clopidogrel [Plavix] 75 mg PO DAILY Discharge Medication List Montelukast [Singulair] 10 mg PO HS 09/12/15 [History] Spironolactone [Aldactone] 25 mg PO DAILY 09/12/15 [History] Levalbuterol Hfa Inhaler [Xopenex Hfa Inhaler] 1 puff INHALATION RT-Q6H PRN 07/17/17 [History] Levalbuterol Nebulized [Xopenex Nebulized] 1.25 mg INHALATION RT-TID 07/17/17 [History] predniSONE 5 mg PO DAILY 02/12/19 [History] Mexiletine HCl 200 mg PO Q8H 01/30/23 [History] Aspirin EC [Ecotrin Low Dose] 81 mg PO DAILY #90 tab 02/27/23 [Rx] Ezetimibe [Zetia] 10 mg PO DAILY #90 tab 02/27/23 [Rx] Atorvastatin [Lipitor] 80 mg PO HS 03/14/23 [History] Metoprolol Succinate (ER) [Toprol XL] 50 mg PO DAILY@1200 #30 tab 03/18/23 [Rx] Amiodarone [Cordarone] 200 mg PO DAILY 07/12/23 [History] Clopidogrel [Plavix] 75 mg PO DAILY 07/12/23 [History] Sacubitril/Valsartan [Entresto 24 mg-26 mg Tablet] 1 tab PO BID 07/12/23 [History] Psyllium Husk 100% [Metamucil Packet] 6 gm PO BID #60 packet 10/20/23 [Rx] Follow up Appointment(s)/Referral(s): Alex Dominguez MD [Primary Care Provider] - 1-2 days
[2023-10-21 14:35] VITALS: BP 137/76; PULSE 79; RESP 16; TEMP 98.4
--- NOTE | 2023-10-21 14:51 | P.PN ---
Subjective Progress Note Date: 10/21/23 This is a very pleasant 73-year-old male patient with a known history of nonischemic cardiomyopathy, ventricular tachycardia with previous ablation, AICD placement, hyperlipidemia, former smoker, chronic obstructive pulmonary disease. He presented to the emergency room yesterday after having difficulty swallowing after having a choking episode taking his pills. He did undergo EGD however no foreign body were noted in the esophagus. Following the procedure he was having ongoing issues with excess mucus cough and congestion and ended up being admitted. Soft tissue x-ray revealed suboptimal assessment of the subglottal airway on the frontal view. There nasopharyngeal and oropharyngeal airways a ppeared patent. No convincing radiopaque foreign body noted. CT scan of the brain revealed no acute intracranial process. Remote frontal lobe injury on the left. Angiogram revealed poor delineation of the esophagus at the level of the larynx. No evidence of free air. No organizing fluid outside the lumen. No evidence of dissection of the cervical internal carotids or vertebral arteries are any evidence of significant stenosis. There is a noted left thyroid gland nodule measuring 2.9 cm. White count 17.3. Hemoglobin 13.8. Platelets 139. Sodium 137. Potassium 4.5. BUN 15. Creatinine 0.76. Glucose 173. He is seen today in consultation on the regular medical floor. He is currently resting comfortably in bed. Awake and alert in no acute distress. He denies any shortness of breath, cough or congestion. Denies any difficulty swallowing this morning. He is maintaining O2 saturations in the upper 90s on room air. He is afebrile. Hemodynamically stable. The patient is seen today October 12, 2023 in follow-up on the regular medical floor. He is currently resting comfortably in bed. Awake and alert in no acute distress. He is still having ongoing issues with difficulty swallowing pills. He is complaining of a sore throat. CT angiogram ruled out pulmonary embolism. There is left lower lobe airspace opacities with possible developing pneumonia. Mild to moderate emphysema. Left thyroid nodule located in the superior mediastinum. Small hiatal hernia. CT soft tissue neck revealed no definite evidence for abscess or significant abnormality. No lymphadenopathy noted. Thyroid nodule noted in the left superior mediastinum. No new labs today. He remains on his home Xopenex. Remains on Solu-Medrol. Swallow evaluation pending. The patient is seen today October 13, 2023 in follow-up on the regular medical floor. He is currently sitting up in bed. Awake and alert in no acute distress. He is still having some difficulty with swallowing. Fluoroscopy of the upper GI with esophagus has been ordered. He remains on bronchodilators and Solu-Medrol. White count 16.2. Hemoglobin 11.7. Platelets 135. Sodium 144. Potassium 4.0. Bicarb 25. BUN 20. Creatinine 0.7. Glucose 150. The patient is seen today October 14, 2023 in follow-up on the regular medical floor. He is currently resting in bed. Awake and alert no acute distress. Maintaining good O2 saturations in the upper 90s on room air. He is afebrile. Hemodynamically stable. He is still having ongoing issues with difficulty in swallowing. Swallow did reveal a delay in passage of contrast in the stomach secondary to dysmotility and tertiary contractions of the esophagus. Small hiatal hernia without stricture. Speech therapy to be working with the patient again today. The patient is seen today October 15, 2023 in follow-up on the regular medical floor. He is resting in bed. Awake and alert in no acute distress. He continues to maintain good O2 saturations in the 90s on room air. Unfortunately he is still unable to have any effective swallow. Speech therapy evaluated him yesterday. The patient is aspirating. PEG tube recommendations were made and the plan is for PEG tube insertion today. He remains on bronchodilators, Solu- Medrol, Singulair. 0.45% normal saline at 75 MLS per hour. The patient is seen today October 16, 2023 in follow-up on the regular medical floor. He is awake and alert in no acute distress. Sitting up in a chair at the bedside. Maintaining good O2 saturations in the 90s on room air. He has 0.45 normal saline at 75 MLS per hour. He did receive a PEG tube placement yesterday. To be initiated on tube feedings later this afternoon. Sodium 144. Potassium 3.8. Bicarb 26. BUN 21. Creatinine 0.7. Glucose 121. He remains on Symbicort, Xopenex, Singulair and Solu-Medrol. The patient is seen today October 17, 2023 in follow-up on the regular medical floor. He is sitting up in bed. Awake and alert in no acute distress. He is maintaining good O2 saturations in the 90s on 2 L/min per nasal cannula. He has been afebrile. Hemodynamically stable. He is being nourished now with Jevity at 15 mL/h with a goal of 65 MLS per hour. Potassium 3.8. Calcium 3.4. Phosphorus 2.4. He is continued on Symbicort, Singulair, Xopenex, Solu-Medrol. The patient is seen today October 18, 2023 in follow-up on the regular medical floor. He is resting comfortably in bed. Awake and alert in no acute distress. Maintaining good O2 saturations in the 90s on 2 L/min per nasal cannula. Has been afebrile. Hemodynamically stable. He is tolerating Jevity now at 30 MLS per hour with a goal of 65 MLS per hour. No new labs today. He remains on Symbicort, Singulair, Xopenex and prednisone taper. Robitussin as needed. Co ntinues to work with a flutter valve. The patient is seen today October 19, 2023 in follow-up on the regular medical floor. He is currently laying flat in bed. Awake and alert in no acute distress. Follow-up chest x-ray showed no acute cardiopulmonary process. Evidence of COPD. He is maintaining O2 saturations in the 90s on room air. States he has been up with assistance in the hallway. He did have some issues with diarrhea last night. C. difficile screen was negative. He is continued on Symbicort, Xopenex, Singulair and a prednisone taper. Robitussin and Cepacol lozenges as needed. PEG tube exit site is clean and dry. Tolerating a tube feedings currently on Jevity at 40 MLS per hour with a goal of 65 MLS per hour. On today's evaluation of 10/20/2023, I am seeing the patient for a follow-up. The patient is calm and comfortable and the patient continues to receive enteral feeding for nutritional support. No abdominal distention. No nausea or emesis. The patient remains on 2 L of oxygen by nasal cannula with a pulse ox of 95%. The patient has a white cell count of 13.5 with a hemoglobin 12.8, BUN is a 50 with a creatinine of 0.6. Stool for C. difficile has been negative and the patient is currently on Jevity for enteral feeding and nutritional support. Patient is known to have nonischemic cardiomyopathy with previous history of nonsustained V. tach and the patient has an AICD in place in addition to COPD and hyperlipidemia. On 10/21/2023, the patient is doing well. Calm and comfortable. No respiratory distress. He is on 2 L of oxygen by nasal cannula With a pulse ox of 94 to 95%. Tolerating enteral feeding for nutrition support. No respiratory distress. No other new complaints otherwise for now. He was found to have dysphagia with silent aspiration and the patient was given a PEG tube on 10/15/2023 and is able to tolerate a diet. No diarrhea. No other new complaints otherwise for now. The patient is being discharged to [facility]. Objective - Vital Signs Vital signs: Vital Signs Temp 98.0 F 10/21/23 07:31 Pulse 84 10/21/23 12:38 Resp 14 10/21/23 07:31 BP 125/75 10/21/23 07:31 Pulse Ox 93 L 10/21/23 07:31 FiO2 Intake & Output 10/20/23 10/21/23 10/21/23 18:59 06:59 18:59 Intake Total 55 Output Total 325 Balance -325 55 Weight 77.5 kg 77.3 kg Intake: Tube Feeding 55 Output: Urine 325 Other: # Voids 3 - Exam GENERAL EXAM: Awake, pleasant 73-year-old male patient, resting in bed, on room air, in no apparent distress. HEAD: Normocephalic. EYES: Normal reaction of pupils, equal size. NOSE: Clear with pink turbinates. THROAT: No erythema or exudates. No evidence of yeast. No visible mass. NECK: No masses, no JVD. CHEST: No chest wall deformity. LUNGS: Equal air entry with few scattered rhonchi bilaterally. CVS: S1 and S2 normal with no audible murmur, regular rhythm. ABDOMEN: PEG tube exit site clean and dry. No hepatosplenomegaly, normal bowel sounds, no guarding or rigidity. SPINE: No scoliosis or deformity SKIN: No rashes CENTRAL NERVOUS SYSTEM: No focal deficits, tone is normal in all 4 extremities. EXTREMITIES: There is no peripheral edema. No clubbing, no cyanosis. Peripheral pulses are intact. - Labs CBC & Chem 7: 10/20/23 06:48 10/20/23 06:48 Assessment and Plan Plan: Dysphagia secondary to difficulty swallowing a pill. EGD did not reveal any evidence of foreign body. Barium swallow reported dysmotility with tertiary contractions of the esophagus. Small hiatal hernia with mild gastroesophageal reflux disease. No surgical intervention planned. The patient was having aspiration while working with speech therapy and PEG tube placement was recommended. PEG tube placed October 15, 2023. Currently receiving Jevity 40 mL/h with a goal of 65 MLS per hour Left thyroid nodule measuring 2.9 cm to be followed up in the outpatient setting History of chronic obstructive pulmonary disease, currently inactive and stable History of obstructive pulmonary disease, currently inactive and stable Nonischemic cardiomyopathy History of ventricular tachycardia status post ablation, status post AICD History of congestive heart failure History of previous ventilatory dependent respiratory failure secondary to COPD exacerbations History of brain hemorrhage while on blood thinners Plan: Continue enteral feeding for nutritional support Patient completed a course of antibiotics The patient will be discharged to [facility] Patient is currently on 2 L of oxygen by nasal cannula. Overall respiratory status is stable Chest x-ray showed no acute pulmonary process Continue bronchodilators Continue prednisone taper at the time of discharge Continue Mucinex and flutter valve for pulmonary toileting Tolerating his tube feeding well, patient is currently on Jevity Cleared for discharge from the pulmonary standpoint Plan is for home with home care and patient declined subacute rehabilitation
== END 2023-10-21 15:30 | DRG 391 ==
LOC: EC 14:56 → 6NMEDSUR 20:35 → OBSVTOIN 10-13 15:31
PROVIDERS: ADMIT Hospitalist; ATTEND Hospitalist
PROC: F00ZHZZ Bedside Swallowing and Oral Function Assessment (ICD-10-PCS; 2023-10-14)
PROC: 3E0G76Z Introduction of Nutritional Substance into Upper GI, Via Natural or Artificial Opening (ICD-10-PCS; 2023-10-15)
PROC: 0DH63UZ Insertion of Feeding Device into Stomach, Percutaneous Approach (ICD-10-PCS; principal; 2023-10-16)
PROC: 3E0336Z Introduction of Nutritional Substance into Peripheral Vein, Percutaneous Approach (ICD-10-PCS; 2023-10-16)
DX: R13.10 Dysphagia, unspecified (principal); E43 Unspecified severe protein-calorie malnutrition; J44.1 Chronic obstructive pulmonary disease with (acute) exacerbation; I42.8 Other cardiomyopathies; K20.80 Other esophagitis without bleeding; Z68.23 Body mass index [BMI] 23.0-23.9, adult; T50.905A Adverse effect of unspecified drugs, medicaments and biological substances, initial encounter; E04.1 Nontoxic single thyroid nodule; I50.9 Heart failure, unspecified; I11.0 Hypertensive heart disease with heart failure; K22.4 Dyskinesia of esophagus; K44.9 Diaphragmatic hernia without obstruction or gangrene; E78.5 Hyperlipidemia, unspecified; I65.02 Occlusion and stenosis of left vertebral artery; K21.9 Gastro-esophageal reflux disease without esophagitis; Z88.6 Allergy status to analgesic agent; Z88.5 Allergy status to narcotic agent; X58.XXXA Exposure to other specified factors, initial encounter
CPT/HCPCS: 36415; 43246; 70450; 70491; 70496; 70498; 71046; 71275; 74230; 74240; 80048; 80053; 83605; 83735; 84100; 84132; 85025; 85027; 85610; 85730; 87324; 94640; 94667; 94760; 96361; 96374; 99285

== ENCOUNTER 2023-11-19 10:16 | Inpatient (IN) | payer MEDICARE ==
[2023-11-19] MEDS: IPRATROPIUM-ALBUTEROL 3 ML NEB INHALATION STA ×2 (10:30→12:02)
[2023-11-19] MEDS: MAGNESIUM SULFATE-D5W PMX 1 GM in DEXTROSE/WATER 1 100ML.BAG IVPB STA (10:45)
[2023-11-19] MEDS: methylPREDNISolone SOD SUCCI 125 MG/2 ML VIAL IV STA (10:45)
[2023-11-19 10:56] LABS: Basophils # (A) 0.2 k/uL (0-0.2); Basophils % (A) 1 %; Eosinophils # (A) 0.2 k/uL (0-0.7); Eosinophils % (A) 1 %; HCT 42.7 % (39.0-53.0); Lymphocytes # (A) 4.1 k/uL (1.0-4.8); Lymphocytes % (A) 12 %; MCH 30.7 pg (25.0-35.0); MCHC 32.8 g/dL (31.0-37.0); MCV 93.6 fL (80.0-100.0); Mean Platelet Volume 8.7; Monocytes # (A) 1.7 k/uL (0-1.0); Monocytes % (A) 5 %; Neutrophils # (A) 26.4 k/uL (1.3-7.7); Neutrophils % (A) 80 %; Platelet Count 182 k/uL (150-450); Poikilocytosis Slight; RBC 4.57 m/uL (4.30-5.90); WBC 32.9 k/uL (3.8-10.6)
[2023-11-19 11:01] LABS: ALT 43 U/L (4-49); AST 42 U/L (17-59); African American GFR (CKD) >90 (>60 ml/min/1.73 sqM); Alkaline Phosphatase 91 U/L (38-126); Anion Gap 5 mmol/L; Blood Urea Nitrogen 17 mg/dL (9-20); Calcium 8.2 mg/dL (8.4-10.2); Carbon Dioxide 32 mmol/L (22-30); Chloride 87 mmol/L (98-107); Glucose 147 mg/dL (74-99); Non-African American GFR(CKD) >90 (>60 ml/min/1.73 sqM); Potassium 4.7 mmol/L (3.5-5.1); Sodium 124 mmol/L (137-145); Total Bilirubin 0.8 mg/dL (0.2-1.3); Total Protein 5.6 g/dL (6.3-8.2)
[2023-11-19 11:09] LABS: NT-Pro-B-Type Natriuretic Pept 1350 pg/mL
--- NOTE | 2023-11-19 11:32 | XR ---
EXAMINATION TYPE: XR chest 1V portable DATE OF EXAM: 11/19/2023 COMPARISON: 10/18/2023 INDICATION: Cough difficulty breathing TECHNIQUE: Single frontal view of the chest is obtained. FINDINGS: The heart size is enlarged. Pacemaker overlies left chest.. The pulmonary vasculature is normal. The lungs are clear. IMPRESSION: 1. No acute pulmonary process. 2. Cardiomegaly.
[2023-11-19 11:56] LABS: ABG Base Excess 10.6 mmol/L; ABG HCO3 35 mmol/L (21-25); ABG Oxygen Saturation 90.9 % (94-97); ABG PCO2 58 mmHg (35-45); ABG PO2 62 mmHg (83-108); ABG TCO2 37 mmol/L (19-24); Allen Test Performed? Yes
[2023-11-19 13:15] LABS: INR 0.9 (<1.2); Partial Thromboplastin Time 22.6 sec (22.0-30.0); Prothrombin Time 10.5 sec (10.0-12.5)
[2023-11-19] MEDS: CEFEPIME 2 GM in SODIUM CHLORIDE 0.9% 100 ML IVPB SCH (14:00)
[2023-11-19] MEDS ORDERED: VANCOMYCIN IV PER PHARMACY 1 EACH MISC MISCELLANE PRN (14:00)
--- NOTE | 2023-11-19 14:02 | CT ---
EXAMINATION TYPE: CT brain wo con CT DLP: 1271.4 mGycm, Automated exposure control for dose reduction was used. DATE OF EXAM: 11/19/2023 12:58 PM COMPARISON: . CLINICAL INDICATION:Male, 73 years old with history of confusion, confusion TECHNIQUE: Brain: Axial CT images of the brain were obtained with coronal and sagittal reformats created and rev iewed. Contrast used: None. Oral contrast used: None. FINDINGS: Brain: No evidence of acute intracranial hemorrhage, mass effect, or midline shift. The ventricles, sulci, a nd cisterns are unremarkable. Patchy bilateral white matter low attenuation lesions are stable compar ed to 10/10/2023. Consider microangiopathy. Intracranial vasculature: unremarkable Soft tissues: Normal. Calvarium/osseous structures: No depressed skull fracture. Craniotomy defect from previous surgery bilaterally. Paranasal sinuses and mastoid air cells: Mild scattered paranasal sinus disease. Visualized orbits: Orbital contents are intact. IMPRESSION: No acute intracranial process. Microangiopathy Evidence of previous darshan holes
[2023-11-19] MEDS ORDERED: NALOXONE 0.4 MG/ML 1 ML VIAL IV PRN (14:19)
--- NOTE | 2023-11-19 14:22 | ED ---
General Adult HPI - General Chief complaint: Shortness of Breath Stated complaint: Difficulty breathing Time Seen by Provider: 11/19/23 10:22 Source: patient, EMS, RN notes reviewed, old records reviewed Mode of arrival: EMS Limitations: no limitations - History of Present Illness Initial comments: Patient is a 73-year-old male who presents with difficulty in breathing. He has a history of COPD, asthma, hyperlipidemia with a AICD. Has a history of cardiomyopathy as well. Presents emergency department with mild confusion, as well as increased shortness of breath with nonproductive cough for the last few days he states. Typically is on 1 to 2 L nasal cannula. Has diffuse wheezes. Was brought to the emergency department for further evaluation at this time. Symptoms acutely worsened at approximately 6 AM this morning. - Related Data Home Medications Medication Instructions Recorded Confirmed Montelukast [Singulair] 10 mg PO DAILY@99909/12/15 11/19/23 Spironolactone [Aldactone] 25 mg PO DAILY@99909/12/15 11/19/23 Levalbuterol Hfa Inhaler [Xopenex 1 puff INHALATION RT-Q6H PRN 07/17/17 11/19/23 Hfa Inhaler] Levalbuterol Nebulized [Xopenex 1.25 mg INHALATION RT-QID 07/17/17 11/19/23 Nebulized] Mexiletine HCl 200 mg PO TID@0600,1400,219901/30/23 11/19/23 Atorvastatin [Lipitor] 80 mg PO HS@219903/14/23 11/19/23 Amiodarone [Cordarone] 200 mg PO DAILY@99907/12/23 11/19/23 Clopidogrel [Plavix] 75 mg PO DAILY@99907/12/23 11/19/23 Sacubitril/Valsartan [Entresto 24 1 tab PO BID@999,219907/12/23 11/19/23 mg-26 mg Tablet] Aspirin EC [Ecotrin Low Dose] 81 mg PO HS@219911/19/23 11/19/23 Ezetimibe [Zetia] 10 mg PO DAILY@99911/19/23 11/19/23 Metoprolol Tartrate [Lopressor] 12.5 mg PO BID@1000,219911/19/23 11/19/23 Psyllium Husk 100% [Metamucil 6 gm PO BID@1000,2200 11/19/23 11/19/23 Packet] predniSONE 10 mg PO DAILY@1000 11/19/23 11/19/23 Allergies Allergy/AdvReac Type Severity Reaction Status Date / Time hydrocodone [From [place]] Allergy Difficulty Verified 11/19/23 12:16 breathing due to asthma ibuprofen Allergy Was told Verified 11/19/23 12:16 not to take while on Brilinta albuterol AdvReac Rapid Verified 11/19/23 12:16 Heart Rate Review of Systems ROS Statement: Those systems with pertinent positive or pertinent negative responses have been documented in the HPI. Review of Systems: CONST: Denies fever EYES: Denies blurry vision ENT: Denies nasal congestion C/V: Denies Chest pain RESP: Endorses shortness of breath GI: Denies abdominal pain : Denies dysuria SKIN: Denies rash. MSK: Denies joint pain. NEURO: Denies headache ROS Other: All systems not noted in ROS Statement are negative. Past Medical History Past Medical History: Asthma, COPD, Hyperlipidemia Additional Past Medical History / Comment(s): VTach, nonischemic cardiomyopathy, CHF, organized left ventricular apical clot, previous DVT ablation, asthma requiring intubation twice, BRAIN BLEED WHILE ON BLOOD THINNER RX 2009, cataracts bilaterally History of Any Multi-Drug Resistant Organisms: None Reported Past Surgical History: AICD, EPS, Pacemaker Additional Past Surgical History / Comment(s): 12/07/15 EPS wtih VT ablation. Other surgical hx: BRAIN SURGERY FOLLOWING BLEED. AICD/PACEMAKER, [facility]. generator change, Defibrilator testing Past Anesthesia/Blood Transfusion Reactions: No Reported Reaction Type of Cardiac Device: Permanent Pacemaker, AICD Device Placement Date:: 2005 implanted with gen change 2012 Past Psychological History: No Psychological Hx Reported Smoking Status: Never smoker Past Alcohol Use History: None Reported Past Drug Use History: None Reported - Past Family History Mother Family Medical History: No Reported History Additional Family Medical History / Comment(s): Mother at age 92 yrs. Father Family Medical History: No Reported History Additional Family Medical History / Comment(s): Father is healthy and 95 yrs old. General Exam - General Exam Comments Initial Comments: General: Appears in respiratory distress. HEAD: Normal with no signs of head trauma. EYES: PERRLA, EOMI, conjunctiva normal, no discharge. ENT: Hearing grossly intact, normal oropharynx. RESPIRATORY: Increased work of breathing. Hypoxic requiring BiPAP. Bilateral end expiratory wheezing present. C/V: Regular rate and rhythm. S1 and S2 auscultated, no edema, peripheral pulses 2+ and intact throughout ABD: Abd is soft, nontender, nondistended. PEG tube unremarkable. EXT: Normal range of motion, no obvious deformity SKIN: Bruising over bilateral forearms from physical therapy evaluations and assess at rehab. NEURO: Alert and oriented x 2-3. Appears to have some mild conversational confusion however is alert and oriented at this time. Will continue to monitor. Chronic upper extremity weakness. Able to move all 4 extremities without issue. Limitations: no limitations Course Vital Signs 11/19/23 11/19/23 11/19/23 10:17 10:26 10:30 Temperature 97.9 F Pulse Rate 102 H 102 H Respiratory 28 H Rate Blood Pressure 126/81 O2 Sat by Pulse 91 L Oximetry Fraction of 50 Inspired Oxygen (FIO2) 11/19/23 11/19/23 11/19/23 10:37 10:38 12:00 Temperature Pulse Rate 100 92 Respiratory 21 Rate Blood Pressure 122/71 O2 Sat by Pulse 93 L Oximetry Fraction of 40 Inspired Oxygen (FIO2) 11/19/23 11/19/23 11/19/23 12:02 12:13 13:00 Temperature Pulse Rate 90 95 96 Respiratory 19 Rate Blood Pressure 117/64 O2 Sat by Pulse 95 Oximetry Fraction of 50 Inspired Oxygen (FIO2) 11/19/23 14:00 Temperature Pulse Rate 98 Respiratory 23 Rate Blood Pressure 125/68 O2 Sat by Pulse 97 Oximetry Fraction of Inspired Oxygen (FIO2) Medical Decision Making - Medical Decision Making Was pt. sent in by a medical professional or institution (, PA, ART HANDLER, urgent care, hospital, or long-term...) When possible be specific @ -No Did you speak to anyone other than the patient for history (EMS, parent, family, police, friend...)? What history was obtained from this source @ -Patient's daughter eventually presented and provided history that patient has had altered mental status and confusion for the last 5 to 6 days. Seems to wax and wane. Did you review nursing and triage notes (agree or disagree)? Why? @ -I reviewed and agree with nursing and triage notes Were old charts reviewed (outside hosp., previous admission, EMS record, old EKG, old radiological studies, urgent care reports/EKG's, long-term records)? Report findings @ -Old charts reviewed Differential Diagnosis (chest pain, altered mental status, abdominal pain women, abdominal pain men, vaginal bleeding, weakness, fever, dyspnea, syncope, headache, dizziness, GI bleed, back pain, seizure, CVA, palpatations, mental health, musculoskeletal)? @ -Differential Dyspnea: Coronary syndrome, arrhythmia, tamponade, asthma, COPD, pulmonary embolism, pneumonia, pneumothorax, pulmonary effusion, anaphylaxis, diabetic ketoacidosis, flailed chest, pulmonary contusion, diaphragmatic rupture, anemia, neuromuscular, this is not meant to be an all-inclusive list. EKG interpreted by me (3pts min.). @ -As above X-rays interpreted by me (1pt min.). @ -Chest x-ray shows no obvious acute cardiopulmonary process. CT interpreted by me (1pt min.). @ -CT brain reveals no obvious acute intracranial process. U/S interpreted by me (1pt. min.). @ -None done What testing was considered but not performed or refused? (CT, X-rays, U/S, lab s)? Why? @ -None What meds were considered but not given or refused? Why? @ -None Did you discuss the management of the patient with other professionals (professionals i.e. , PA, ART HANDLER, lab, RT, psych nurse, social services analyst, manufacturing recruiter, teacher, parking regulation enforcement officer, onsite case manager)? Give summary @ -Discussed with ICU attending and gear grinder Dr. Olson as he was rounding on other patients. He agreed to evaluate the patient. Requested CT brain as well as admission to the ICU. I was in agreement this plan. I spoke with Dr. Doshi, patient's admitting physician who accepted the patient. Was smoking cessation discussed for >3mins.? @ -No Was critical care preformed (if so, how long)? @ -Yes, 38 minutes Were there social determinants of health that impacted care today? How? (Homelessness, low income, unemployed, alcoholism, drug addiction, transportation, low edu. Level, literacy, decrease access to med. care, long term, rehab)? @ -No Was there de-escalation of care discussed even if they declined (Discuss DNR or withdrawal of care, Hospice)? DNR status @ -No What co-morbidities impacted this encounter? (DM, HTN, Smoking, COPD, CAD, Cancer, CVA, ARF, Chemo, Hep., AIDS, mental health diagnosis, sleep apnea, morbid obesity)? @ -COPD Was patient admitted / discharged? Hospital course, mention meds given and route, prescriptions, significant lab abnormalities, going to OR and other pertinent info. @ -Based on the patient's presentation and physical exam, presents in respiratory distress. Appears to be COPD. Patient placed on BiPAP immediately upon arrival. Work of breathing has improved. He will be given IV Solu-Medrol, breathing treatments, IV magnesium. Vital signs currently within acceptable limits on BiPAP. Patient was in agreement this plan. He seems to have waxing and waning confusion throughout his stay. EKG showed no signs of acute ischemia. Patient's laboratory studies are took a long time to return however were remarkable for leukocytosis of 32.9. Patient is hyponatremic and hypochloremic with 124 and 87 respectively. Troponin elevated. Slightly elevated BNP viral swabs negative. CT brain unremarkable. Chest x-ray unremarkable. Due to the patient's elevated white blood cell count as well as the hypoxia, he technically meets for sepsis. Sepsis criteria met at 1241. Blood culture sent. Broad-spectrum antibiotics, vancomycin and cefepime initiated. Patient has a history of cardiomyopathy and therefore we will closely monitor fluid boluses, a s patient will not receive the 30 cc/kg requirements. Lactic acid is not elevated. Patient is not hypotensive. He will be started on maintenance fluids at 75 cc an hour and we will closely monitor. Dr. Olson was in the emergency department earlier in the patient's care and evaluate the patient and determined that he is meeting criteria for ICU admission. Will continue with IV steroids, breathing treatments as well as antibiotics. Urine is still pending at this time. I updated patient's daughter who did present at bedside and did inform me that patient has been intermittently confused for the last 5 days. Worsening shortness of breath over the last 1 day. She was in agreement plan for admission. Patient is on low-dose steroids at home daily however that would not explain his leukocytosis at this time. Patient admitted to ICU in serious condition on BiPAP. Undiagnosed new problem with uncertain prognosis? @ -No Drug Therapy requiring intensive monitoring for toxicity (Heparin, Nitro, Insulin, Cardizem)? @ -No Were any procedures done? @ -No Diagnosis/symptom? @ -Hypoxic respiratory failure secondary to COPD, on BiPAP, sepsis source unknown. Altered mental status. Acute, or Chronic, or Acute on Chronic? @ -Acute Uncomplicated (without systemic symptoms) or Complicated (systemic symptoms)? @ -Complicated Side effects of treatment? @ -No Exacerbation, Progression, or Severe Exacerbation? @ -No Poses a threat to life or bodily function? How? (Chest pain, USA, MS, pneumonia, PE, COPD, DKA, ARF, appy, cholecystitis, CVA, Diverticulitis, Homicidal, Suicidal, threat to staff... and all critical care pts) @ -Yes - Lab Data Result diagrams: 11/19/23 10:30 11/19/23 10:30 Lab Results 11/19/23 11/19/23 11/19/23 Range/Units 10:30 10:30 10:30 WBC 32.9 H (3.8-10.6) k/uL RBC 4.57 (4.30-5.90) m/uL Hgb 14.0 (13.0-17.5) gm/dL Hct 42.7 (39.0-53.0) % MCV 93.6 (80.0-100.0) fL MCH 30.7 (25.0-35.0) pg MCHC 32.8 (31.0-37.0) g/dL RDW 16.0 H (11.5-15.5) % Plt Count 182 (150-450) k/uL MPV 8.7 Neutrophils % 80 % Lymphocytes % 12 % Monocytes % 5 % Eosinophils % 1 % Basophils % 1 % Neutrophils # 26.4 H (1.3-7.7) k/uL Lymphocytes # 4.1 (1.0-4.8) k/uL Monocytes # 1.7 H (0-1.0) k/uL Eosinophils # 0.2 (0-0.7) k/uL Basophils # 0.2 (0-0.2) k/uL Manual Slide Review Performed Poikilocytosis Slight PT (10.0-12.5) sec INR (<1.2) APTT (22.0-30.0) sec Sample Site ABG pH (7.35-7.45) ABG pCO2 (35-45) mmHg ABG pO2 (83-108) mmHg ABG HCO3 (21-25) mmol/L ABG Total CO2 (19-24) mmol/L ABG O2 Saturation (94-97) % ABG Base Excess mmol/L Luis Angel Test FiO2 % Sodium 124 L (137-145) mmol/L Potassium 4.7 (3.5-5.1) mmol/L Chloride 87 L (98-107) mmol/L Carbon Dioxide 32 H (22-30) mmol/L Anion Gap 5 mmol/L BUN 17 (9-20) mg/dL Creatinine 0.45 L (0.66-1.25) mg/dL Est GFR (CKD-EPI)AfAm >90 (>60 ml/min/1.73 sqM) Est GFR (CKD-EPI)NonAf >90 (>60 ml/min/1.73 sqM) Glucose 147 H (74-99) mg/dL Plasma Lactic Acid Melvin 1.2 (0.7-2.0) mmol/L Calcium 8.2 L (8.4-10.2) mg/dL Magnesium 2.0 (1.6-2.3) mg/dL Total Bilirubin 0.8 (0.2-1.3) mg/dL AST 42 (17-59) U/L ALT 43 (4-49) U/L Alkaline Phosphatase 91 (38-126) U/L Ammonia (<30) umol/L Troponin I (0.000-0.034) ng/mL NT-Pro-B Natriuret Pep 1350 pg/mL Total Protein 5.6 L (6.3-8.2) g/dL Albumin 3.0 L (3.5-5.0) g/dL Influenza Type A (PCR) (Not Detectd) Influenza Type B (PCR) (Not Detectd) RSV (PCR) (Not Detectd) SARS-CoV-2 (PCR) (Not Detectd) 11/19/23 11/19/23 11/19/23 Range/Units 10:30 10:50 11:49 WBC (3.8-10.6) k/uL RBC (4.30-5.90) m/uL Hgb (13.0-17.5) gm/dL Hct (39.0-53.0) % MCV (80.0-100.0) fL MCH (25.0-35.0) pg MCHC (31.0-37.0) g/dL RDW (11.5-15.5) % Plt Count (150-450) k/uL MPV Neutrophils % % Lymphocytes % % Monocytes % % Eosinophils % % Basophils % % Neutrophils # (1.3-7.7) k/uL Lymphocytes # (1.0-4.8) k/uL Monocytes # (0-1.0) k/uL Eosinophils # (0-0.7) k/uL Basophils # (0-0.2) k/uL Manual Slide Review Poikilocytosis PT (10.0-12.5) sec INR (<1.2) APTT (22.0-30.0) sec Sample Site rrad ABG pH 7.40 (7.35-7.45) ABG pCO2 58 H (35-45) mmHg ABG pO2 62 L (83-108) mmHg ABG HCO3 35 H (21-25) mmol/L ABG Total CO2 37 H (19-24) mmol/L ABG O2 Saturation 90.9 L (94-97) % ABG Base Excess 10.6 mmol/L Luis Angel Test Yes FiO2 50 % Sodium (137-145) mmol/L Potassium (3.5-5.1) mmol/L Chloride (98-107) mmol/L Carbon Dioxide (22-30) mmol/L Anion Gap mmol/L BUN (9-20) mg/dL Creatinine (0.66-1.25) mg/dL Est GFR (CKD-EPI)AfAm (>60 ml/min/1.73 sqM) Est GFR (CKD-EPI)NonAf (>60 ml/min/1.73 sqM) Glucose (74-99) mg/dL Plasma Lactic Acid Melvin (0.7-2.0) mmol/L Calcium (8.4-10.2) mg/dL Magnesium (1.6-2.3) mg/dL Total Bilirubin (0.2-1.3) mg/dL AST (17-59) U/L ALT (4-49) U/L Alkaline Phosphatase (38-126) U/L Ammonia (<30) umol/L Troponin I 0.012 (0.000-0.034) ng/mL NT-Pro-B Natriuret Pep pg/mL Total Protein (6.3-8.2) g/dL Albumin (3.5-5.0) g/dL Influenza Type A (PCR) Not Detected (Not Detectd) Influenza Type B (PCR) Not Detected (Not Detectd) RSV (PCR) Not Detected (Not Detectd) SARS-CoV-2 (PCR) Not Detected (Not Detectd) 11/19/23 11/19/23 Range/Units 12:15 12:15 WBC (3.8-10.6) k/uL RBC (4.30-5.90) m/uL Hgb (13.0-17.5) gm/dL Hct (39.0-53.0) % MCV (80.0-100.0) fL MCH (25.0-35.0) pg MCHC (31.0-37.0) g/dL RDW (11.5-15.5) % Plt Count (150-450) k/uL MPV Neutrophils % % Lymphocytes % % Monocytes % % Eosinophils % % Basophils % % Neutrophils # (1.3-7.7) k/uL Lymphocytes # (1.0-4.8) k/uL Monocytes # (0-1.0) k/uL Eosinophils # (0-0.7) k/uL Basophils # (0-0.2) k/uL Manual Slide Review Poikilocytosis PT 10.5 (10.0-12.5) sec INR 0.9 (<1.2) APTT 22.6 (22.0-30.0) sec Sample Site ABG pH (7.35-7.45) ABG pCO2 (35-45) mmHg ABG pO2 (83-108) mmHg ABG HCO3 (21-25) mmol/L ABG Total CO2 (19-24) mmol/L ABG O2 Saturation (94-97) % ABG Base Excess mmol/L Luis Angel Test FiO2 % Sodium (137-145) mmol/L Potassium (3.5-5.1) mmol/L Chloride (98-107) mmol/L Carbon Dioxide (22-30) mmol/L Anion Gap mmol/L BUN (9-20) mg/dL Creatinine (0.66-1.25) mg/dL Est GFR (CKD-EPI)AfAm (>60 ml/min/1.73 sqM) Est GFR (CKD-EPI)NonAf (>60 ml/min/1.73 sqM) Glucose (74-99) mg/dL Plasma Lactic Acid Melvin (0.7-2.0) mmol/L Calcium (8.4-10.2) mg/dL Magnesium (1.6-2.3) mg/dL Total Bilirubin (0.2-1.3) mg/dL AST (17-59) U/L ALT (4-49) U/L Alkaline Phosphatase (38-126) U/L Ammonia <9 (<30) umol/L Troponin I (0.000-0.034) ng/mL NT-Pro-B Natriuret Pep pg/mL Total Protein (6.3-8.2) g/dL Albumin (3.5-5.0) g/dL Influenza Type A (PCR) (Not Detectd) Influenza Type B (PCR) (Not Detectd) RSV (PCR) (Not Detectd) SARS-CoV-2 (PCR) (Not Detectd) - EKG Data -: EKG Interpreted by Me EKG Comments: 12-lead Electrocardiogram Interpretation Note EKG was reviewed and interpreted by myself. 12-lead ECG performed at 1120 is interpreted by me as revealing normal sinus rhythm at a rate of 97 beats per minute. Left axis deviation. [place] interval is 194 ms, QRS duration is 157 ms, QTc is 448 ms.. There were no obvious acute. ST or T wave abnormalities to suggest myocardial ischemia or injury. Similar changes as in February 2023. R wave progression across the precordium was delayed. By my interpretation this EKG is non-diagnostic for acute ischemia. Critical Care Time Critical Care Time: Yes Total Critical Care Time: 38 Disposition Clinical Impression: COPD (chronic obstructive pulmonary disease), Acute hypoxic respiratory failure, Sepsis, AMS (altered mental status) Disposition: ADMITTED IP TO THIS HOSP Condition: Serious Referrals: Alex Dominguez MD [Primary Care Provider] - 1-2 days Time of Disposition: 14:15
[2023-11-19] MEDS: VANCOMYCIN 1,250 MG in SODIUM CHLORIDE 0.9% 250 ML IVPB STA (14:39)
[2023-11-19] MEDS: SODIUM CHLORIDE 0.9% 1,000 ML IV STA (15:11)
--- NOTE | 2023-11-19 16:28 | P.CNPUL ---
History of Present Illness Consult date: 11/19/23 Requesting physician: Trey Doshi Reason for consult: dyspnea, hypoxemia Chief complaint: Weakness, shortness of breath, hypoxemia History of present illness: This is a very pleasant 73-year-old male patient with a known history of nonischemic cardiomyopathy, ventricular tachycardia with previous ablation, AICD placement, hyperlipidemia, former smoker, chronic obstructive pulmonary disease, intracranial hemorrhage while on blood thinners back in 2009 with subsequent surgery. He was recently here in the hospital after having difficulty swallowing after having a choking episode taking his pills. He did undergo EGD however no foreign body were noted in the esophagus. Continued to have ongoing issues with difficulty swallowing and subsequently had a PEG tube placed on August 14, 2024. He was subsequently discharged home. He was brought back into the hospital today after being found to have progressive weakness, shortness of breath and low oxygen readings per his daughter. He is on home oxygen typically only 1 or 2 L per nasal cannula. He was found to be in significant shortness of breath with bronchospasm and wheezing and difficult to arouse. He was placed on BiPAP 12/6 and 50% FiO2 to maintain O2 saturation in the low 90s.'s x-ray revealed no acute pulmonary process. CT scan of the brain revealed no acute intracranial abnormalities. There is evidence of bur holes. White count 32.9. Hemoglobin 14.0. Platelets 182. INR 0.9. Sodium 124. Potassium 4.7. Bicarb 32. BUN 17. Creatinine 0.45. Glucose 147. proBNP 1350. Troponin negative x 1. Influenza screen was negative. Arterial blood gases on 50% FiO2 revealed a PaO2 of 62, pCO2 58 and a pH of 7.40. He is seen today in consultation in the emergency department. Resting on a stretcher. He is continued on BiPAP. He is a bit more arousable. Denies any worsening shortness of breath. O2 saturations in the mid 90s. He is afebrile. Hemodynamically stable. Review of Systems REVIEW OF SYSTEMS: CONSTITUTIONAL: Altered mental status, hypoxemia. Denies any recent significant weight loss or weight gain. EYES: Denies change in vision. EARS, NOSE, MOUTH, THROAT: Denies headaches, denies sore throat. CARDIOVASCULAR: Denies chest pain, palpitations or syncopal episodes. RESPIRATORY: Positive for shortness of breath, cough, congestion no hemoptysis. GASTROINTESTINAL: Denies change in appetite, denies abdominal pain GENITOURINARY: Denies hematuria, denies infections. MUSKULOSKELETAL: Denies pain, denies swelling. INTEGUMENTARY: Denies rash, denies eczema. NEUROLOGICAL: Denies recent memory loss, no recent seizure activity. PSYCHIATRIC: Positive for altered mental status denies anxiety, denies depression. HEMATOLOGIC/LYMPHATIC: Denies anemia, denies enlarged lymph nodes. Past Medical History Past Medical History: Asthma, COPD, Hyperlipidemia Additional Past Medical History / Comment(s): VTach, nonischemic cardiomyopathy, CHF, organized left ventricular apical clot, previous DVT ablation, asthma requiring intubation twice, BRAIN BLEED WHILE ON BLOOD THINNER RX 2009, cataracts bilaterally History of Any Multi-Drug Resistant Organisms: None Reported Past Surgical History: AICD, EPS, Pacemaker Additional Past Surgical History / Comment(s): 12/07/15 EPS wtih [place] ablation. Other surgical hx: BRAIN SURGERY FOLLOWING BLEED. AICD/PACEMAKER, [facility]. generator change, Defibrilator testing Past Anesthesia/Blood Transfusion Reactions: No Reported Reaction Type of Cardiac Device: Permanent Pacemaker, AICD Device Placement Date:: 2005 implanted with gen change 2012 Past Psychological History: No Psychological Hx Reported Smoking Status: Never smoker Past Alcohol Use History: None Reported Past Drug Use History: None Reported - Past Family History Mother Family Medical History: No Reported History Additional Family Medical History / Comment(s): Mother at age 92 yrs. Father Family Medical History: No Reported History Additional Family Medical History / Comment(s): Father is healthy and 95 yrs old. Medications and Allergies Home Medications Medication Instructions Recorded Confirmed Type Montelukast [Singulair] 10 mg PO DAILY@1000 09/12/15 11/19/23 History Spironolactone [Aldactone] 25 mg PO DAILY@1000 09/12/15 11/19/23 History Levalbuterol Hfa Inhaler [Xopenex 1 puff INHALATION RT-Q6H PRN 07/17/17 11/19/23 History Hfa Inhaler] Levalbuterol Nebulized [Xopenex 1.25 mg INHALATION RT-QID 07/17/17 11/19/23 History Nebulized] Mexiletine HCl 200 mg PO TID@0600,1400,2200 01/30/23 11/19/23 History Atorvastatin [Lipitor] 80 mg PO HS@2200 03/14/23 11/19/23 History Amiodarone [Cordarone] 200 mg PO DAILY@1000 07/12/23 11/19/23 History Clopidogrel [Plavix] 75 mg PO DAILY@1000 07/12/23 11/19/23 History Sacubitril/Valsartan [Entresto 24 1 tab PO BID@1000,0 07/12/23 11/19/23 History mg-26 mg Tablet] Aspirin EC [Ecotrin Low Dose] 81 mg PO HS@219911/19/23 11/19/23 History Ezetimibe [Zetia] 10 mg PO DAILY@1000 11/19/23 11/19/23 History Metoprolol Tartrate [Lopressor] 12.5 mg PO BID@1000,219911/19/23 11/19/23 History Psyllium Husk 100% [Metamucil 6 gm PO BID@1000,219911/19/23 11/19/23 History Packet] predniSONE 10 mg PO DAILY@1000 11/19/23 11/19/23 History Allergies Allergy/AdvReac Type Severity Reaction Status Date / Time hydrocodone [From [place]] Allergy Difficulty Verified 11/19/23 12:16 breathing due to asthma ibuprofen Allergy Was told Verified 11/19/23 12:16 not to take while on Brilinta albuterol AdvReac Rapid Verified 11/19/23 12:16 Heart Rate Physical Exam Vitals: Vital Signs Temp Pulse Resp BP Pulse Ox FiO2 11/19/23 15:16 50 11/19/23 15:00 98.2 F 98 24 111/69 97 11/19/23 14:00 98 23 125/68 97 11/19/23 13:00 96 19 117/64 95 11/19/23 12:13 95 11/19/23 12:02 90 50 11/19/23 12:00 92 21 122/71 93 L 11/19/23 10:38 40 11/19/23 10:37 100 11/19/23 10:30 102 H 11/19/23 10:26 50 11/19/23 10:17 97.9 F 102 H 28 H 126/81 91 L Intake and Output 11/19/23 11/19/23 11/19/23 06:59 14:59 22:59 Other: Weight 70.307 kg GENERAL EXAM: Arousable, 73-year-old male, on BiPAP, fairly comfortable in no apparent distress. HEAD: Normocephalic. EYES: Normal reaction of pupils, equal size. NOSE: Clear with pink turbinates. THROAT: No erythema or exudates. NECK: No masses, no JVD. CHEST: No chest wall deformity. LUNGS: Equal air entry with no crackles, wheeze, rhonchi or dullness. CVS: S1 and S2 normal with no audible murmur, regular rhythm. ABDOMEN: No hepatosplenomegaly, normal bowel sounds, no guarding or rigidity. SPINE: No scoliosis or deformity SKIN: No rashes CENTRAL NERVOUS SYSTEM: Alert but no focal deficits, tone is normal in all 4 extremities. EXTREMITIES: There is no peripheral edema. No clubbing, no cyanosis. Peripheral pulses are intact. Results - Laboratory Findings CBC and BMP: 11/19/23 10:30 11/19/23 10:30 ABG ABG pH 7.40 (7.35-7.45) 11/19/23 11:49 ABG pCO2 58 mmHg (35-45) H 11/19/23 11:49 ABG pO2 62 mmHg (83-108) L 11/19/23 11:49 ABG O2 Saturation 90.9 % (94-97) L 11/19/23 11:49 PT/INR, D-dimer PT 10.5 sec (10.0-12.5) 11/19/23 12:15 INR 0.9 (<1.2) 11/19/23 12:15 Abnormal lab findings: Abnormal Labs 11/19/23 11/19/23 11/19/23 10:30 10:30 11:49 WBC 32.9 H RDW 16.0 H Neutrophils # 26.4 H Monocytes # 1.7 H ABG pCO2 58 H ABG pO2 62 L ABG HCO3 35 H ABG Total CO2 37 H ABG O2 Saturation 90.9 L Sodium 124 L Chloride 87 L Carbon Dioxide 32 H Creatinine 0.45 L Glucose 147 H Calcium 8.2 L Total Protein 5.6 L Albumin 3.0 L - Diagnostic Findings Chest x-ray: image reviewed Assessment and Plan Assessment: Altered mental status and progressive weakness suspect secondary to hypoxemia Acute on chronic hypoxemic respiratory failure secondary to COPDasthma exacerbation. Chest x-ray reveals no acute pulmonary process and viral screen negative Leukocytosis of unclear allergy, blood cultures pending, procalcitonin pending Hyponatremia, suspect secondary to no oral intake due to n.p.o. status secondary to dysphagia Recent hospitalization for dysphagia with eventual PEG tube insertion on October 15, 2023 Nonischemic cardiomyopathy status post AICD placement initially in 2005 with generator change in 2012 History of intracranial hemorrhage requiring surgical intervention secondary to blood thinners in 2009 History of ventilatory dependent respiratory failure secondary to COPD/asthma exacerbation Non-smoker Plan: The patient was seen and evaluated CT scan of the brain, chest x-ray, ABGs, labs and medications reviewed Obtain a CT angiogram to rule out pulmonary embolism Continue BiPAP support for now Titrate down the FiO2 as tolerated Normal saline at 75 MLS per hour Continue Solu-Medrol Patient's own Xopenex 4 times daily and as needed Continue antibiotics for now Check a procalcitonin Blood cultures pending Neurology consult Dietitian consult for continued PEG tube feedings Admit to the intensive care unit for closer monitoring We will continue to follow and make further recommendations based on his clinical status I have personally seen and examined the patient, performed the documentation and the assessment and plan as written. Number of minutes spent on the visit: 20.
[2023-11-19 17:20] LABS: Appearance,Urine Clear (Clear); Bilirubin,Urine Negative (Negative); Blood,Urine Negative (Negative); Color,Urine Yellow; Glucose,Urine (UA) Negative (Negative); Ketones,Urine Negative (Negative); Leukocyte Esterase,Urine Negative (Negative); Nitrite,Urine Negative (Negative); Protein,Urine Negative (Negative); Specific Gravity,Urine 1.017 (1.001-1.035); Urobilinogen,Urine <2.0 mg/dL (<2.0)
[2023-11-19] MEDS: methylPREDNISolone SOD SUCCI 125 MG/2 ML VIAL IV SCH (17:23)
--- NOTE | 2023-11-19 20:35 | P.HPIM ---
History of Present Illness H&P Date: 11/19/23 Chief Complaint: Short of breath 73-year-old male patient with a known history of nonischemic cardiomyopathy, ventricular tachycardia with previous ablation, AICD placement, hyperlipidemia, former smoker, chronic obstructive pulmonary disease. Patient was in the hospital over a month ago. Admitted with COPD exacerbation, pill induced esophagitis, noted to have silent aspiration and a PEG tube was placed. Patient now presents with increasing shortness of breath. Bit altered mentation. Nonproductive cough. The last few days. At home about 2 L of nasal cannula. Symptoms became much worse this morning around 6 AM. Patient had to be placed on BiPAP. When I came to see this patient he was rather lethargic tired not really able to give much of a history Review of systems: Patient unable to give a history Social history: Lives with his . Smoked for 20 years 4 to 5 cigarettes a day stopped at the age of 38. No alcohol. Physical examination: VITAL SIGNS: 98.2, 94, 18, 106 x 76, 97% on BiPAP at 50% GENERAL: BMI 21.6, laying in bed on BiPAP lethargic. Bruising especially in both the arms EYES: Pupils equal. Conjunctiva dilma l. HEENT: External appearance of nose and ears normal, oral cavity grossly normal. NECK: JVD able to assess; masses not palpable. HEART: First and second heart sounds are normal; no edema. LUNGS: Respiratory rate increased; poor air entry. ABDOMEN: Soft, nontender, liver spleen not palpable, no masses palpable. PEG tube PSYCH: Lethargic l. MUSCULOSKELETAL:No Clubbing/cyanosis;muscles-grossly intact NEUROLOGICAL: Cranial nerves grossly intact; no facial asymmetry, power and sensation grossly intact. LYMPHATICS: No lymph nodes palpable in the axilla and neck INVESTIGATIONS, reviewed in the clinical context: November 18: White count 32.9 hemoglobin 14 platelets were 82 sodium 124 potassium 4.7 BUN 17 creatinine 0.45 Troponin I 0.012 ammonia less than 9 proBNP 1350 UA: Negative Influenza type A, B, RSV, COVID-19: Not detected ABG: pH 7.4 pCO2 58 pO2 62 EKG tracing personally reviewed by me-intraventricular conduction delay. Sinus rhythm. Chest x-ray film personally reviewed by me-cardiomegaly. Cannot rule out infiltrate Assessment: -Acute COPD exacerbation, causing respiratory failure Xopenex. IV Solu-Medrol. -Acute on chronic hypoxic and hypercapnic respiratory failure Currently on BiPAP 50% and 14/6 - PEG tube placement on 10/15/2023. NPO Dysphagia with silent aspiration noted on modified barium swallow, -Left vertebral artery stenosis history -Essential hypertension Entresto, Lopressor, -Left thyroid nodule measuring 2.9 cm, was to be followed up in the outpatient setting from last admission -Nonischemic cardiomyopathy/chronic congestive heart failure, EF not known Entresto. Lopressor. 2D echo - AICD-history of ventricular tachycardia status post ablation, status post -History of previous ventilatory dependent respiratory failure secondary to COPD exacerbations -History of brain hemorrhage while on blood thinners Full code Past Medical History Past Medical History: Asthma, COPD, Hyperlipidemia Additional Past Medical History / Comment(s): VTach, nonischemic cardiomyopathy, CHF, organized left ventricular apical clot, previous DVT ablation, asthma requiring intubation twice, BRAIN BLEED WHILE ON BLOOD THINNER RX 2009, cataracts bilaterally History of Any Multi-Drug Resistant Organisms: None Reported Past Surgical History: AICD, EPS, Pacemaker Additional Past Surgical History / Comment(s): 12/07/15 EPS [facility] [place] ablation. Other surgical hx: BRAIN SURGERY FOLLOWING BLEED. AICD/PACEMAKER, [facility]. generator change, Defibrilator testing Past Anesthesia/Blood Transfusion Reactions: No Reported Reaction Type of Cardiac Device: Permanent Pacemaker, AICD Device Placement Date:: 2005 implanted with gen change 2012 Past Psychological History: No Psychological Hx Reported Smoking Status: Never smoker Past Alcohol Use History: None Reported Past Drug Use History: None Reported - Past Family History Mother Family Medical History: No Reported History Additional Family Medical History / Comment(s): Mother at age 92 yrs. Father Family Medical History: No Reported History Additional Family Medical History / Comment(s): Father is healthy and 95 yrs old. Medications and Allergies Home Medications Medication Instructions Recorded Confirmed Type Montelukast [Singulair] 10 mg PO DAILY@1000 09/12/15 11/19/23 History Spironolactone [Aldactone] 25 mg PO DAILY@1000 09/12/15 11/19/23 History Levalbuterol Hfa Inhaler [Xopenex 1 puff INHALATION RT-Q6H PRN 07/17/17 11/19/23 History Hfa Inhaler] Levalbuterol Nebulized [Xopenex 1.25 mg INHALATION RT-QID 07/17/17 11/19/23 History Nebulized] Mexiletine HCl 200 mg PO TID@0600,1400,2200 01/30/23 11/19/23 History Atorvastatin [Lipitor] 80 mg PO HS@2200 03/14/23 11/19/23 History Amiodarone [Cordarone] 200 mg PO DAILY@1000 07/12/23 11/19/23 History Clopidogrel [Plavix] 75 mg PO DAILY@1000 07/12/23 11/19/23 History Sacubitril/Valsartan [Entresto 24 1 tab PO BID@1000,0 07/12/23 11/19/23 History mg-26 mg Tablet] Aspirin EC [Ecotrin Low Dose] 81 mg PO HS@2200 11/19/23 11/19/23 History Ezetimibe [Zetia] 10 mg PO DAILY@1000 11/19/23 11/19/23 History Metoprolol Tartrate [Lopressor] 12.5 mg PO BID@1000,0 11/19/23 11/19/23 History Psyllium Husk 100% [Metamucil 6 gm PO BID@1000,0 11/19/23 11/19/23 History Packet] predniSONE 10 mg PO DAILY@1000 11/19/23 11/19/23 History Allergies Allergy/AdvReac Type Severity Reaction Status Date / Time hydrocodone [From [place]] Allergy Difficulty Verified 11/19/23 12:16 breathing due to asthma ibuprofen Allergy Was told Verified 11/19/23 12:16 not to take while on Brilinta albuterol AdvReac Rapid Verified 11/19/23 12:16 Heart Rate Physical Exam Vitals: Vital Signs Temp Pulse Resp BP Pulse Ox FiO2 11/19/23 19:21 50 11/19/23 17:26 94 18 106/76 97 11/19/23 15:16 50 11/19/23 15:00 98.2 F 98 24 111/69 97 11/19/23 14:00 98 23 125/68 97 11/19/23 13:00 96 19 117/64 95 11/19/23 12:13 95 11/19/23 12:02 90 50 11/19/23 12:00 92 21 122/71 93 L 11/19/23 10:38 40 11/19/23 10:37 100 11/19/23 10:30 102 H 11/19/23 10:26 50 11/19/23 10:17 97.9 F 102 H 28 H 126/81 91 L Intake and Output 11/19/23 11/19/23 11/19/23 06:59 14:59 22:59 Other: Weight 70.307 kg Results CBC & Chem 7: 11/19/23 10:30 11/19/23 10:30 Labs: Abnormal Lab Results - Last 24 Hours (Table) 11/19/23 11/19/23 11/19/23 Range/Units 10:30 10:30 11:49 WBC 32.9 H (3.8-10.6) k/uL RDW 16.0 H (11.5-15.5) % Neutrophils # 26.4 H (1.3-7.7) k/uL Monocytes # 1.7 H (0-1.0) k/uL ABG pCO2 58 H (35-45) mmHg ABG pO2 62 L (83-108) mmHg ABG HCO3 35 H (21-25) mmol/L ABG Total CO2 37 H (19-24) mmol/L ABG O2 Saturation 90.9 L (94-97) % Sodium 124 L (137-145) mmol/L Chloride 87 L (98-107) mmol/L Carbon Dioxide 32 H (22-30) mmol/L Creatinine 0.45 L (0.66-1.25) mg/dL Glucose 147 H (74-99) mg/dL Calcium 8.2 L (8.4-10.2) mg/dL Total Protein 5.6 L (6.3-8.2) g/dL Albumin 3.0 L (3.5-5.0) g/dL
[2023-11-19] MEDS: PSYLLIUM HUSK 100% 6 GM PACKET PO SCH (23:34)
[2023-11-19] MEDS: METOPROLOL TARTRATE 12.5 MG TAB PO SCH (23:34)
[2023-11-19] MEDS: ASPIRIN 81 MG PO SCH (23:34)
[2023-11-19] MEDS: ATORVASTATIN 80 MG TAB PO SCH (23:34)
[2023-11-19] MEDS: MEXILETINE 200 MG CAP PO SCH (23:49)
[2023-11-19] MEDS: SACUBITRIL/VALSARTAN 24 MG-26 MG TABLET PO SCH (23:49)
[2023-11-20] MEDS: LEVALBUTEROL 1.25 MG/3 ML INHALATION SCH (00:57)
[2023-11-20] MEDS: VANCOMYCIN 1,250 MG in SODIUM CHLORIDE 0.9% 250 ML IVPB SCH (02:07)
[2023-11-20 04:03] LABS: Anisocytosis Slight; Basophils % (A) 0 %; Eosinophils % (A) 0 %; HCT 33.5 % (39.0-53.0); Lymphocytes # (A) 3.2 k/uL (1.0-4.8); Lymphocytes % (A) 12 %; MCH 30.8 pg (25.0-35.0); MCHC 32.4 g/dL (31.0-37.0); Mean Platelet Volume 8.2; Monocytes # (A) 0.9 k/uL (0-1.0); Monocytes % (A) 4 %; Neutrophils # (A) 21.9 k/uL (1.3-7.7); Neutrophils % (A) 84 %; Platelet Count 234 k/uL (150-450); RBC 3.53 m/uL (4.30-5.90); RDW 16.1 % (11.5-15.5); WBC 26.2 k/uL (3.8-10.6)
[2023-11-20 04:07] LABS: HGB 10.9 gm/dL (13.0-17.5)
[2023-11-20 04:25] LABS: African American GFR (CKD) >90 (>60 ml/min/1.73 sqM); Anion Gap 2 mmol/L; Blood Urea Nitrogen 18 mg/dL (9-20); Calcium 8.2 mg/dL (8.4-10.2); Carbon Dioxide 32 mmol/L (22-30); Chloride 93 mmol/L (98-107); Glucose 135 mg/dL (74-99); Non-African American GFR(CKD) >90 (>60 ml/min/1.73 sqM); Sodium 127 mmol/L (137-145)
[2023-11-20] MEDS: IPRATROPIUM-ALBUTEROL 3 ML NEB INHALATION PRN (08:45)
[2023-11-20] MEDS: MONTELUKAST 10 MG TAB PO SCH (09:39)
[2023-11-20] MEDS: AMIODARONE 200 MG TAB PO SCH (09:39)
[2023-11-20] MEDS: SPIRONOLACTONE 25 MG TAB PO SCH (09:39)
[2023-11-20] MEDS: EZETIMIBE 10 MG TAB PO SCH (09:39)
[2023-11-20] MEDS: CLOPIDOGREL 75 MG TAB PO SCH (09:39)
--- NOTE | 2023-11-20 10:33 | XR ---
EXAMINATION TYPE: XR chest 1V portable DATE OF EXAM: 11/20/2023 COMPARISON: 11/19/2023 INDICATION: Respiratory failure TECHNIQUE: Single frontal view of the chest is obtained. FINDINGS: The heart size is normal. The pulmonary vasculature is normal. Left lower lobe retrocardiac infiltrate is present. Correlate for pneumonia. Follow-up is recommended . Some subsegmental atelectasis or pneumonias at the right base. IMPRESSION: 1. Left lower lobe retrocardiac infiltrate. Correlate for pneumonia. 2. Mild tracheal right base. Correlate for atelectasis or pneumonia.
--- NOTE | 2023-11-20 11:32 | CT ---
EXAMINATION TYPE: CT angio chest CT DLP: 440.1 mGycm, Automated exposure control for dose reduction was used. DATE OF EXAM: 11/19/2023 6:15 PM COMPARISON: Chest radiograph from same day. .. CLINICAL INDICATION:Male, 73 years old with history of Hypoxemia; Hypoxemia. R/O PE. TECHNIQUE/CONTRAST: CTA scan of the thorax is performed with IV Contrast, patient injected with 100 ml mL of Isovue 370, MIP images are created and reviewed these are created on a separate workstation.. FINDINGS: Pulmonary Artery: There is no evidence for a filling defect within the pulmonary vasculature to sugge st acute pulmonary embolism. The pulmonary artery is of normal size. Lungs/Pleura: There is emphysema. Bibasilar pneumonia. Trace pleural effusion. Airway: Large airways are patent. Heart: Heart is within normal limits for size. Vasculature: No evidence of aortic aneurysm. Mediastinum: No gross evidence of adenopathy. Musculoskeletal: No acute osseous abnormalities Soft Tissues: Unremarkable. Lower neck: No significant findings. Upper Abdomen: No significant findings. IMPRESSION: 1. No evidence of pulmonary embolism. 2. Moderately severe emphysema. Bibasilar pneumonia. Trace pleural effusion.
--- NOTE | 2023-11-20 14:40 | P.CRDCN ---
History of Present Illness Consult date: 11/20/23 Consult reason: congestive heart failure History of present illness: History of present illness: This is a 73-year-old male patient of Dr. Li with past medical history of V. tach status post AICD, ischemic cardiomyopathy, coronary artery disease, hyperlipidemia, left vertebral artery stenosis, COPD. We have been asked to evaluate the patient for heart failure. Patient seen today in the emergency center waiting for a bed on the cardiac stepdown unit. History is obtained from the patient's daughter as patient is currently on BiPAP. She states that she got up this morning was preparing to do his tube feeding and found that he was h ypoxic. He was doing very well until yesterday morning at 6 AM. His pulse ox was 88%. She tried to increase his oxygen flow level but this did not help his pulse ox. She then called 911 patient was brought into the emergency center for further evaluation. EKG sinus rhythm with IVCD Chest x-ray: Left lower lobe retrocardiac infiltrate correlate for pneumonia. Subsegmental atelectasis or pneumonia is on the right base. CTA of the chest showed no evidence of pulmonary embolism. Moderate severe emphysema. Bibasilar pneumonia. Trace pleural effusion. WBC 26.2, hemoglobin 10.9, platelet count 234. INR 0.9. Sodium 127, potassium 5, CO2 32, chloride 94, BUN 18 creatinine 0.54. Blood sugar 135. Troponin negative x 1. proBNP 1350. Urinalysis negative. Influenza A, influenza B, RSV, COVID-19 detected. Home cardiac medications: Amiodarone 200 mg daily, aspirin 81 mg daily, atorvastatin 80 mg at bedtime, Plavix 75 mg daily, Zetia 10 mg daily, Lopressor 12.5 mg twice daily, Entresto 24 to 26 mg twice daily, Aldactone 25 mg daily. 02/11/2023 EP procedure: Cinefluoroscopy of the leads was performed, Atrial lead, active fix, in the right atrial appendage. No fractures or breaks. ICD lead shows evidence of deteriorating and may implant new ICD lead along with ICD generator change. Cardiac catheterization 02/26/2023 revealed critical disease involving the proximal and mid LAD with extremely calcified and eccentric lesion. Successful stenting of proximal and mid LAD. Echocardiogram performed in the office on 05/22/2023 revealed EF of 30 to 35%, trace aortic regurgitation, mildly dilated left atrium, ascending aorta is enlarged. Mild mitral rotation, mild tricuspid regurgitation. Normal pulmonary artery systolic pressure. Mild pulmonic regurgitation. Review Of Systems: At the time of my exam: CONSTITUTIONAL: Denies fever or chills. HEENT: Denies blurred vision, vision changes, or eye pain. Denies hemoptysis CARDIOVASCULAR: Denies chest pain. Denies orthopnea. Denies PND. Denies palpitations RESPIRATORY: Reports hypoxia, reports shortness of breath. GASTROINTESTINAL: Denies abdominal pain. Denies nausea or vomiting. HEMATOLOGIC: Denies bleeding disorders. GENITOURINARY: Denies any blood in urine. SKIN: Denies pruitis. Denies rash. Physical examination: Gen: This is a 73-year-old male resting on the ER stretcher in no acute respiratory distress, on BiPAP and appears comfortable VS: reviewed HEENT: Head is atraumatic, normocephalic. Pupils equal, round. Sclerae is anicteric. NECK: Supple. No JVD. LUNGS: Fair bilateral air exchange with scattered bilateral rhonchi. No intercostal retractions. HEART: Distant heart sounds, regular rate and rhythm. ABDOMEN: Soft No tenderness. EXTREMITIES: No pedal edema. No calf tenderness. NEUROLOGICAL: Patient is awake, alert. Assessment: Acute hypoxic respiratory failure secondary to acute COPD exacerbation Hyponatremia History of ischemic cardiomyopathy without overt heart failure Rule out sepsis Pneumonia History of ventricular tachycardia status post AICD Coronary artery disease with previous stent of the proximal and mid LAD Plan: Resume patient's home cardiac medications Further recommendations to follow based upon clinical course Thank you kindly for this consultation. Nurse practitioner note has been reviewed, I agree with documented findings and plan of care. Patient was seen and examined. Past Medical History Past Medical History: Asthma, COPD, Hyperlipidemia Additional Past Medical History / Comment(s): VTach, nonischemic cardiomyopathy, CHF, organized left ventricular apical clot, previous DVT ablation, asthma r equiring intubation twice, BRAIN BLEED WHILE ON BLOOD THINNER RX 2009, cataracts bilaterally History of Any Multi-Drug Resistant Organisms: None Reported Past Surgical History: AICD, EPS, Pacemaker Additional Past Surgical History / Comment(s): 12/07/15 EPS wtih VT ablation. Other surgical hx: BRAIN SURGERY FOLLOWING BLEED. AICD/PACEMAKER, [facility]. generator change, Defibrilator testing Past Anesthesia/Blood Transfusion Reactions: No Reported Reaction Type of Cardiac Device: Permanent Pacemaker, AICD Device Placement Date:: 2005 implanted with gen change 2012 Past Psychological History: No Psychological Hx Reported Smoking Status: Never smoker Past Alcohol Use History: None Reported Past Drug Use History: None Reported - Past Family History Mother Family Medical History: No Reported History Additional Family Medical History / Comment(s): Mother at age 92 yrs. Father Family Medical History: No Reported History Additional Family Medical History / Comment(s): Father is healthy and 95 yrs ol d. Medications and Allergies Home Medications Medication Instructions Recorded Confirmed Type Montelukast [Singulair] 10 mg PO DAILY@1000 09/12/15 11/19/23 History Spironolactone [Aldactone] 25 mg PO DAILY@1000 09/12/15 11/19/23 History Levalbuterol Hfa Inhaler [Xopenex 1 puff INHALATION RT-Q6H PRN 07/17/17 11/19/23 History Hfa Inhaler] Levalbuterol Nebulized [Xopenex 1.25 mg INHALATION RT-QID 07/17/17 11/19/23 History Nebulized] Mexiletine HCl 200 mg PO TID@0600,1400,2200 01/30/23 11/19/23 History Atorvastatin [Lipitor] 80 mg PO HS@219903/14/23 11/19/23 History Amiodarone [Cordarone] 200 mg PO DAILY@1000 07/12/23 11/19/23 History Clopidogrel [Plavix] 75 mg PO DAILY@1000 07/12/23 11/19/23 History Sacubitril/Valsartan [Entresto 24 1 tab PO BID@1000,0 07/12/23 11/19/23 History mg-26 mg Tablet] Aspirin EC [Ecotrin Low Dose] 81 mg PO HS@219911/19/23 11/19/23 History Ezetimibe [Zetia] 10 mg PO DAILY@1000 11/19/23 11/19/23 History Metoprolol Tartrate [Lopressor] 12.5 mg PO BID@1000,219911/19/23 11/19/23 History Psyllium Husk 100% [Metamucil 6 gm PO BID@1000,219911/19/23 11/19/23 History Packet] predniSONE 10 mg PO DAILY@1000 11/19/23 11/19/23 History Allergies Allergy/AdvReac Type Severity Reaction Status Date / Time hydrocodone [From [place]] Allergy Difficulty Verified 11/19/23 12:16 breathing due to asthma ibuprofen Allergy Was told Verified 11/19/23 12:16 not to take while on Brilinta albuterol AdvReac Rapid Verified 11/19/23 12:16 Heart Rate Physical Exam Vitals: Vital Signs Temp Pulse Resp BP Pulse Ox FiO2 11/20/23 09:00 79 10 L 116/66 95 11/20/23 08:56 81 11/20/23 08:47 35 11/20/23 08:46 80 97 35 11/20/23 06:00 82 17 119/73 96 11/20/23 05:00 80 18 110/70 96 11/20/23 04:00 79 17 96/60 95 11/20/23 03:47 35 11/20/23 03:00 80 20 94/61 98 11/20/23 02:00 80 16 100/66 99 11/20/23 01:03 50 11/20/23 01:00 78 18 98/64 99 11/20/23 00:00 82 18 124/73 98 11/19/23 23:00 87 19 101/67 98 11/19/23 22:44 87 19 104/67 97 11/19/23 21:00 89 18 107/66 98 11/19/23 20:00 89 19 109/70 97 11/19/23 19:21 50 11/19/23 19:00 90 15 100/62 97 11/19/23 17:26 94 18 106/76 97 11/19/23 15:16 50 11/19/23 15:00 98.2 F 98 24 111/69 97 11/19/23 14:00 98 23 125/68 97 11/19/23 13:00 96 19 117/64 95 11/19/23 12:13 95 11/19/23 12:02 90 50 11/19/23 12:00 92 21 122/71 93 L Results 11/20/23 03:23 11/20/23 03:23 Cardiac Enzymes 11/19/23 Range/Units 10:30 Troponin I 0.012 (0.000-0.034) ng/mL Coagulation 11/19/23 Range/Units 12:15 PT 10.5 (10.0-12.5) sec APTT 22.6 (22.0-30.0) sec CBC 11/19/23 11/20/23 Range/Units 10:30 03:23 WBC 32.9 H 26.2 H (3.8-10.6) k/uL RBC 4.57 3.53 L (4.30-5.90) m/uL Hgb 14.0 10.9 L D (13.0-17.5) gm/dL Hct 42.7 33.5 L (39.0-53.0) % Plt Count 182 234 (150-450) k/uL Comprehensive Metabolic Panel 11/20/23 Range/Units 03:23 Sodium 127 L (137-145) mmol/L Potassium 5.0 (3.5-5.1) mmol/L Chloride 93 L (98-107) mmol/L Carbon Dioxide 32 H (22-30) mmol/L BUN 18 (9-20) mg/dL Creatinine 0.53 L (0.66-1.25) mg/dL Glucose 135 H (74-99) mg/dL Calcium 8.2 L (8.4-10.2) mg/dL Current Medications Generic Name Dose Route Start Last Admin Trade Name Freq PRN Reason Stop Dose Admin Albuterol/Ipratropium 3 ml 11/19/23 12:12 11/20/23 08:45 Ipratropium-Albuterol 3 Ml Neb INHALATION 3 ml RT-Q2H PRN Administration Shortness Of Breath Or Wheezing Amiodarone HCl 200 mg 11/20/23 10:00 11/20/23 09:39 Amiodarone 200 Mg Tab PO 200 mg DAILY@1000 JOSE MIGUEL Administration Aspirin 81 mg 11/19/23 22:00 11/19/23 23:34 Aspirin 81 Mg PO 81 mg HS@2200 JOSE MIGUEL Administration Atorvastatin Calcium 80 mg 11/19/23 22:00 11/19/23 23:34 Atorvastatin 80 Mg Tab PO 80 mg HS@2200 JOSE MIGUEL Administration Clopidogrel Bisulfate 75 mg 11/20/23 10:00 11/20/23 09:39 Clopidogrel 75 Mg Tab PO 75 mg DAILY@1000 JOSE MIGUEL Administration Ezetimibe 10 mg 11/20/23 10:00 11/20/23 09:39 Ezetimibe 10 Mg Tab PO 10 mg DAILY@1000 JOSE MIGUEL Administration Cefepime HCl 2 gm/ Sodium 100 mls @ 25 mls/hr 11/19/23 14:00 11/20/23 07:39 Chloride IVPB 25 mls/hr Q8HR JOSE MIGUEL Administration Protocol Vancomycin HCl 1,250 mg/ 250 mls @ 125 mls/hr 11/20/23 03:00 11/20/23 02:07 Sodium Chloride IVPB 125 mls/hr Q12H JOSE MIGUEL Administration Methylprednisolone Sodium Succinate 60 mg 11/19/23 18:00 11/20/23 07:35 Methylprednisolone Sod Succi 125 Mg/2 Ml Vial IV 60 mg Q6HR JOSE MIGUEL Administration Metoprolol Tartrate 12.5 mg 11/19/23 22:00 11/20/23 09:39 Metoprolol Tartrate 12.5 Mg Tab PO 12.5 mg BID@1000,2200 JOSE MIGUEL Administration Mexiletine HCl 200 mg 11/19/23 22:00 11/20/23 07:38 Mexiletine 200 Mg Cap PO 200 mg TID@0600,1400,2200 JOSE MIGUEL Administration Montelukast Sodium 10 mg 11/20/23 10:00 11/20/23 09:39 Montelukast 10 Mg Tab PO 10 mg DAILY@1000 JOSE MIGUEL Administration Naloxone HCl 0.2 mg 11/19/23 14:19 Naloxone 0.4 Mg/Ml 1 Ml Vial IV Q2M PRN Opioid Reversal Levalbuterol Hfa 1 puff 11/19/23 18:00 Inhaler 200 Puff/9 INHALATION Gm Inhaler RT-Q6H PRN Shortness Of Breath Levalbuterol 1.25 mg 11/19/23 20:00 11/20/23 08:45 Nebulized 1.25 Mg/3 INHALATION Not Given Ml Nebule RT-QID [facility] Psyllium Hydrophilic Mucilloid 6 gm 11/19/23 22:00 11/20/23 09:39 Psyllium Husk 100% 6 Gm Packet PO 6 gm BID@1000,2200 JOSE MIGUEL Administration Sacubitril/Valsartan 1 each 11/19/23 22:00 11/19/23 23:49 Sacubitril/Valsartan 24 Mg-26 Mg Tablet PO 1 each BID@1000,2200 JOSE MIGUEL Administration Spironolactone 25 mg 11/20/23 10:00 11/20/23 09:39 Spironolactone 25 Mg Tab PO 25 mg DAILY@1000 JOSE MIGUEL Administration 11/20/23 03:23 11/20/23 03:23
--- NOTE | 2023-11-20 14:54 | P.CNNES ---
History of Present Illness Consult date: 11/20/23 Requesting physician: Dwayne Nascimento Reason for Consult: ams History of Present Illness: This is a 73-year-old gentleman who presents because of hypoxia with altered mental status. History was obtained from the patient daughter. According to the daughter yesterday she was sitting care of her father and he was hypoxic the pulse ox was reading 88% and was intermittently awakeable to voice. Patient did not have any foaming around the mouth, any jerking of extremities a, any urinary or bowel issues. Patient does not have any history of stroke or seizures. According to the daughter the patient's mentation is better today. Patient does have underlying history of COPD. Of note, patient daughter stated that the patient has dysphagia in the last couple months and as it as a result has a PEG tube as well as in the last few weeks to months he has left foot drop and has chronic ongoing back pain. She stated that that she attempted to have the patient is seen by neurologist as an outpatient and she stated there is no appointments untold January 2024. Then later she stated that she saw a neurologist Dr. Hemphill but he notified her that he does not deal with those issues and he referred her to 2 other neurologists in town according to the patient. Some of the work-up during this hospital visit consisted of: Initial pulse ox is 91% liters on BiPAP currently it's improved and he is on 2 L of nasal cannula. His sodium is 124 and the repeated one is 127. CT of the head is reported as no acute intracranial process. Microangiopathic. Evidence of previous darshan hole. I personally reviewed this to the head and I agree there is no acute subacute ischemia. Patient seems to have left frontal encephalomalacia. Which was seen on prior CTs at least since January 2023. Review of Systems Review of system is a positive and negative as per HPI. Past Medical History Past Medical History: Asthma, COPD, Hyperlipidemia Additional Past Medical History / Comment(s): VTach, nonischemic cardiomyopathy, CHF, organized left ventricular apical clot, previous DVT ablation, asthma requiring intubation twice, BRAIN BLEED WHILE ON BLOOD THINNER RX 2009, cataracts bilaterally History of Any Multi-Drug Resistant Organisms: None Reported Past Surgical History: AICD, EPS, Pacemaker Additional Past Surgical History / Comment(s): 12/07/15 EPS [facility] [place] ablation. Other surgical hx: BRAIN SURGERY FOLLOWING BLEED. AICD/PACEMAKER, [facility]. generator change, Defibrilator testing Past Anesthesia/Blood Transfusion Reactions: No Reported Reaction Type of Cardiac Device: Permanent Pacemaker, AICD Device Placement Date:: 2005 implanted with gen change 2012 Past Psychological History: No Psychological Hx Reported Smoking Status: Never smoker Past Alcohol Use History: None Reported Past Drug Use History: None Reported - Past Family History Mother Family Medical History: No Reported History Additional Family Medical History / Comment(s): Mother at age 92 yrs. Father Family Medical History: No Reported History Additional Family Medical History / Comment(s): Father is healthy and 95 yrs old. Medications and Allergies Home Medications Medication Instructions Recorded Confirmed Type Montelukast [Singulair] 10 mg PO DAILY@99909/12/15 11/19/23 History Spironolactone [Aldactone] 25 mg PO DAILY@1000 09/12/15 11/19/23 History Levalbuterol Hfa Inhaler [Xopenex 1 puff INHALATION RT-Q6H PRN 07/17/17 11/19/23 History Hfa Inhaler] Levalbuterol Nebulized [Xopenex 1.25 mg INHALATION RT-QID 07/17/17 11/19/23 History Nebulized] Mexiletine HCl 200 mg PO TID@0600,1400,0 01/30/23 11/19/23 History Atorvastatin [Lipitor] 80 mg PO HS@219903/14/23 11/19/23 History Amiodarone [Cordarone] 200 mg PO DAILY@1000 07/12/23 11/19/23 History Clopidogrel [Plavix] 75 mg PO DAILY@99907/12/23 11/19/23 History Sacubitril/Valsartan [Entresto 24 1 tab PO BID@1000,219907/12/23 11/19/23 History mg-26 mg Tablet] Aspirin EC [Ecotrin Low Dose] 81 mg PO HS@219911/19/23 11/19/23 History Ezetimibe [Zetia] 10 mg PO DAILY@99911/19/23 11/19/23 History Metoprolol Tartrate [Lopressor] 12.5 mg PO BID@1000,219911/19/23 11/19/23 History Psyllium Husk 100% [Metamucil 6 gm PO BID@1000,2200 11/19/23 11/19/23 History Packet] predniSONE 10 mg PO DAILY@1000 11/19/23 11/19/23 History Allergies Allergy/AdvReac Type Severity Reaction Status Date / Time hydrocodone [From [place]] Allergy Difficulty Verified 11/19/23 12:16 breathing due to asthma ibuprofen Allergy Was told Verified 11/19/23 12:16 not to take while on Brilinta albuterol AdvReac Rapid Verified 11/19/23 12:16 Heart Rate Physical Examination - Vital Signs Vital Signs: Vital Signs Temp Pulse Resp BP Pulse Ox FiO2 11/20/23 12:29 97 11/20/23 12:28 72 11/20/23 12:12 72 11/20/23 12:07 35 11/20/23 09:00 79 10 L 116/66 95 11/20/23 08:56 81 11/20/23 08:47 35 11/20/23 08:46 80 97 35 11/20/23 06:00 82 17 119/73 96 11/20/23 05:00 80 18 110/70 96 11/20/23 04:00 79 17 96/60 95 11/20/23 03:47 35 11/20/23 03:00 80 20 94/61 98 11/20/23 02:00 80 16 100/66 99 11/20/23 01:03 50 11/20/23 01:00 78 18 98/64 99 11/20/23 00:00 82 18 124/73 98 11/19/23 23:00 87 19 101/67 98 11/19/23 22:44 87 19 104/67 97 11/19/23 21:00 89 18 107/66 98 11/19/23 20:00 89 19 109/70 97 11/19/23 19:21 50 11/19/23 19:00 90 15 100/62 97 11/19/23 17:26 94 18 106/76 97 11/19/23 15:16 50 11/19/23 15:00 98.2 F 98 24 111/69 97 Intake and Output 11/19/23 11/20/23 11/20/23 22:59 06:59 14:59 Other: Weight 70.307 kg GENERAL: The patient is lying in bed and is not in acute distress. NEUROLOGICAL: Higher mental function: The patient is awake, alert, oriented to self, place. He is able to name objects correctly (pen and watch). He named his daughter's name correctly. Patient is following commands. No aphasia and no neglect. Cranial nerves: The pupils are round, equal and reactive to light. Visual cuevas are full to confrontation throughout. Extraocular movement is intact no nystagmus is noted. Facial sensation is normal to touch throughout. The facial strength is normal throughout. Hearing is moderately decreased bilaterally to hand rub. Tongue is midline and moved [id number] without any difficulty. Has hypophonia. Shoulder shrug is normal bilaterally. Motor: The strength is 5 over 5 throughout uppers. Has left foot drop. Left ankle plantarflexion: Has some effort related but has antigravity. Has slight decrease tone over the left foot . Normal bulk. Cerebellum: Normal finger to nose bilaterally. Sensation: Sensation is normal to touch throughout. Reflexes (right/left): 1+ Plantars are mute bilaterally. Results - Laboratory Findings CBC and BMP: 11/20/23 03:23 11/20/23 03:23 Abnormal Lab Findings: Abnormal Labs 11/19/23 11/19/23 11/19/23 10:30 10:30 11:49 WBC 32.9 H RBC Hgb Hct RDW 16.0 H Neutrophils # 26.4 H Monocytes # 1.7 H ABG pCO2 58 H ABG pO2 62 L ABG HCO3 35 H ABG Total CO2 37 H ABG O2 Saturation 90.9 L Sodium 124 L Chloride 87 L Carbon Dioxide 32 H Creatinine 0.45 L Glucose 147 H Calcium 8.2 L Total Protein 5.6 L Albumin 3.0 L Procalcitonin 11/19/23 11/20/23 11/20/23 22:38 03:23 03:23 WBC 26.2 H RBC 3.53 L Hgb 10.9 L D Hct 33.5 L RDW 16.1 H Neutrophils # 21.9 H Monocytes # ABG pCO2 ABG pO2 ABG HCO3 ABG Total CO2 ABG O2 Saturation Sodium 127 L Chloride 93 L Carbon Dioxide 32 H Creatinine 0.53 L Glucose 135 H Calcium 8.2 L Total Protein Albumin Procalcitonin 1.11 H Assessment and Plan Assessment: This is a 73-year-old gentleman who presented because of hypoxia with a pulse ox of 88% with confusion. He was also found to have hyponatremia as well. Altered mental status due to metabolic encephalopathy as well as hypoxic encephalopathy--mentation improved. CT of the head is negative for any acute or subacute stroke Hyponatremia as low as 124 slightly trending up to 127 Hypoxia---resolved Left foot drop going on for months with ongoing chronic lower back pain Dysphagia status post PEG tube History of brain bleed status post bur holes and has and supplements over the left frontal History of nonischemic cardiomyopathy as well as congestive heart farther status post AICD History of COPD Plan: I ordered CT of the lumbar per the daughter's request because of left foot drop. I recommend the EMG with nerve conduction study as an outpatient of the lowers to rule out any radiculopathy or neuropathy. Regarding his dysphagia and further workup of his left foot drop recommend the patient to follow-up with a neurologist as an outpatient. According to the daughter they thought a neurologist to follow-up in January 2024. I recommended that the she obtain a referral to assess if she can get a different point was someone else or to attempt to close up appointment with her current neurologist. We'll defer the rest of the medical measure the primary and other specialists The plan was discussed with the patient and his daughter was at bedside. Thank you for the consultation. Time with Patient: Greater than 30
--- NOTE | 2023-11-20 15:19 | P.PN ---
Subjective Progress Note Date: 11/20/23 Principal diagnosis: Acute metabolic encephalopathy with acute on chronic hypoxic respiratory failure and bibasilar pneumonia/aspiration pneumonia This is a very pleasant 73-year-old male patient with a known history of nonischemic cardiomyopathy, ventricular tachycardia with previous ablation, AICD placement, hyperlipidemia, former smoker, chronic obstructive pulmonary disease, intracranial hemorrhage while on blood thinners back in 2009 with subsequent surgery. He was recently here in the hospital after having difficulty swallowing after having a choking episode taking his pills. He did undergo EGD however no foreign body were noted in the esophagus. Continued to have ongoing issues with difficulty swallowing and subsequently had a PEG tube placed on August 14, 2024. He was subsequently discharged home. He was brought back into the hospital today after being found to have progressive weakness, shortness of breath and low oxygen readings per his daughter. He is on home oxygen typically only 1 or 2 L per nasal cannula. He was found to be in significant shortness of breath with bronchospasm and wheezing and difficult to arouse. He was placed on BiPAP 12/6 and 50% FiO2 to maintain O2 saturation in the low 90s.'s x-ray revealed no acute pulmonary process. CT scan of the brain revealed no acute intracranial abnormalities. There is evidence of bur holes. White count 32.9. Hemoglobin 14.0. Platelets 182. INR 0.9. Sodium 124. Potassium 4.7. Bicarb 32. BUN 17. Creatinine 0.45. Glucose 147. proBNP 1350. Troponin negative x 1. Influenza screen was negative. Arterial blood gases on 50% FiO2 revealed a PaO2 of 62, pCO2 58 and a pH of 7.40. He is seen today in consultation in the emergency department. Resting on a stretcher. He is continued on BiPAP. He is a bit more arousable. Denies any worsening shortness of breath. O2 saturations in the mid 90s. He is afebrile. Hemodynamically stable. Patient was reevaluated today on 11/20/2023, patient was reevaluated again while in the ER, mentation seems to be a bit better, patient remains hemodynamically stable, he is empirically on antibiotics for presumptive aspiration pneumonia as noted on CT angiogram of the chest, and there was no evidence of pulmonary embolism. WBC count remains elevated at 26.2 hemoglobin is 10.9. Sodium is up to 127 renal profile is normal bicarb is 32 procalcitonin level is 1.11 patient is now on 2 L nasal cannula, he was earlier on BiPAP, and his O2 sats is 95%. Blood pressure is 100/78. Objective - Vital Signs Vital signs: Vital Signs Temp 98.2 F 11/19/23 15:00 Pulse 72 11/20/23 12:28 Resp 10 L 11/20/23 09:00 BP 116/66 11/20/23 09:00 Pulse Ox 97 11/20/23 12:29 FiO2 35 11/20/23 12:07 Intake & Output 11/19/23 11/20/23 11/20/23 18:59 06:59 18:59 Weight 70.307 kg 70.307 kg - Exam GENERAL EXAM: Arousable, 73-year-old male, on BiPAP, arousable, follows simple instructions. HEAD: Normocephalic. EYES: Normal reaction of pupils, equal size. NOSE: Clear with pink turbinates. THROAT: No erythema or exudates. NECK: No masses, no JVD. CHEST: No chest wall deformity. LUNGS: Minich breath sounds and crackles at the bases no rhonchi no wheezes CVS: S1 and S2 normal with no audible murmur, regular rhythm. ABDOMEN: No hepatosplenomegaly, normal bowel sounds, no guarding or rigidity. SKIN: No rashes CENTRAL NERVOUS SYSTEM: Arousable, follows simple instructions but a bit confused. EXTREMITIES: No clubbing edema or cyanosis. - Labs CBC & Chem 7: 11/20/23 03:23 11/20/23 03:23 Labs: Abnormal Lab Results - Last 24 Hours (Table) 11/19/23 11/20/23 11/20/23 Range/Units 22:38 03:23 03:23 WBC 26.2 H (3.8-10.6) k/uL RBC 3.53 L (4.30-5.90) m/uL Hgb 10.9 L D (13.0-17.5) gm/dL Hct 33.5 L (39.0-53.0) % RDW 16.1 H (11.5-15.5) % Neutrophils # 21.9 H (1.3-7.7) k/uL Sodium 127 L (137-145) mmol/L Chloride 93 L (98-107) mmol/L Carbon Dioxide 32 H (22-30) mmol/L Creatinine 0.53 L (0.66-1.25) mg/dL Glucose 135 H (74-99) mg/dL Calcium 8.2 L (8.4-10.2) mg/dL Procalcitonin 1.11 H (0.02-0.09) ng/mL Assessment and Plan Assessment: Impression: Altered mental status and progressive weakness suspect secondary to hypoxemia Suspect bibasilar pneumonia, aspiration pneumonia unless proven otherwise. Acute on chronic hypoxemic respiratory failure secondary to COPDand secondary to bibasilar pneumonia as noted on CT angiogram of the chest Leukocytosis secondary to aspiration pneumonia Hypovolemic hyponatremia, improving Recent hospitalization for dysphagia with eventual PEG tube insertion on 2023 Nonischemic cardiomyopathy status post AICD placement initially in 2005 with generator change in 2012 History of intracranial hemorrhage requiring surgical intervention secondary to blood thinners in 2009 History of ventilatory dependent respiratory failure secondary to COPD/asthma exacerbation Non-smoker Recommendation: Continue antibiotics and will likely transition to Zosyn in the next 24 hours Continue bronchodilators Continue oxygen and titrate accordingly may or may not need BiPAP Continue steroids Continue Xopenex Procalcitonin was checked and noted to be a bit elevated Check blood cultures, still pending Continue nutritional suppor'st/enteral feeding via PEG tube No need to go to ICU will arrange for the patient to go to a monitored bed and selective Will continue to follow Time with Patient: Less than 30
--- NOTE | 2023-11-20 15:48 | P.PN ---
Progress Note - Text Progress Note Date: 11/20/23 Chief Complaint: Short of breath 73-year-old male patient with a known history of nonischemic cardiomyopathy, ventricular tachycardia with previous ablation, AICD placement, hyperlipidemia, former smoker, chronic obstructive pulmonary disease. Patient was in the hospital over a month ago. Admitted with COPD exacerbation, pill induced esophagitis, noted to have silent aspiration and a PEG tube was placed. Patient now presents with increasing shortness of breath. Bit altered mentation. Nonproductive cough. The last few days. At home about 2 L of nasal cannula. Symptoms became much worse this morning around 6 AM. Patient had to be placed on BiPAP. When I came to see this patient he was rather lethargic tired not really able to give much of a history. November 19: Patient still remains overflow in the ER room ED-1. More awake. On BiPAP. Spoke to the nurse to make sure the PEG tube feeding is started. Medications through the PEG tube. Patient does live with his and daughter. On IV cefepime, IV vancomycin. IV Solu-Medrol. Bronchodilators. Will send off nasopharyngeal MRSA swab. Short of breath. Tired. Additional information from cardiology notes: Cardiac catheterization February 2023: Stenting of proximal and mid LAD. 2D echo in April 2023: EF 30 to 35%. Active Medications Albuterol/Ipratropium (Ipratropium-Albuterol 3 Ml Neb) 3 ml INHALATION RT-Q2H PRN PRN Reason: Shortness Of Breath Or Wheezing Last Admin: 11/20/23 08:45 Dose: 3 ml Amiodarone HCl (Amiodarone 200 Mg Tab) 200 mg PO DAILY@1000 JOSE MIGUEL Last Admin: 11/20/23 09:39 Dose: 200 mg Aspirin (Aspirin 81 Mg) 81 mg PO HS@2200 JOSE MIGUEL Last Admin: 11/19/23 23:34 Dose: 81 mg Atorvastatin Calcium (Atorvastatin 80 Mg Tab) 80 mg PO HS@2200 JOSE MIGUEL Last Admin: 11/19/23 23:34 Dose: 80 mg Clopidogrel Bisulfate (Clopidogrel 75 Mg Tab) 75 mg PO DAILY@1000 JOSE MIGUEL Last Admin: 11/20/23 09:39 Dose: 75 mg Ezetimibe (Ezetimibe 10 Mg Tab) 10 mg PO DAILY@1000 JOSE MIGUEL Last Admin: 11/20/23 09:39 Dose: 10 mg Cefepime HCl 2 gm/ Sodium (Chloride) 100 mls @ 25 mls/hr IVPB Q8HR [facility]; Protocol Last Admin: 11/20/23 07:39 Dose: 25 mls/hr Vancomycin HCl 1,250 mg/ (Sodium Chloride) 250 mls @ 125 mls/hr IVPB Q12H [facility] Last Admin: 11/20/23 02:07 Dose: 125 mls/hr Methylprednisolone Sodium Succinate (Methylprednisolone Sod Succi 125 Mg/2 Ml Vial) 60 mg IV Q6HR [facility] Last Admin: 11/20/23 15:12 Dose: 60 mg Metoprolol Tartrate (Metoprolol Tartrate 12.5 Mg Tab) 12.5 mg PO BID@1000,2200 [facility] Last Admin: 11/20/23 09:39 Dose: 12.5 mg Mexiletine HCl (Mexiletine 200 Mg Cap) 200 mg PO TID@0600,1400,2200 [facility] Last Admin: 11/20/23 07:38 Dose: 200 mg Miscellaneous Information (Vancomycin Trough Due 1 Each Misc) 0 each MISCELLANE DIRECTED ONE Stop: 11/21/23 14:01 Montelukast Sodium (Montelukast 10 Mg Tab) 10 mg PO DAILY@1000 [facility] Last Admin: 11/20/23 09:39 Dose: 10 mg Naloxone HCl (Naloxone 0.4 Mg/Ml 1 Ml Vial) 0.2 mg IV Q2M PRN PRN Reason: Opioid Reversal Levalbuterol Hfa Inhaler 200 Puff/9 Gm Inhaler 1 puff INHALATION RT-Q6H PRN PRN Reason: Shortness Of Breath Levalbuterol Nebulized 1.25 Mg/3 Ml Nebule 1.25 mg INHALATION RT-QID [facility] Last Admin: 11/20/23 12:11 Dose: Not Given Psyllium Hydrophilic Mucilloid (Psyllium Husk 100% 6 Gm Packet) 6 gm PO BID@1000,2200 [facility] Last Admin: 11/20/23 09:39 Dose: 6 gm Sacubitril/Valsartan (Sacubitril/Valsartan 24 Mg-26 Mg Tablet) 1 each PO BID@1000,2200 [facility] Last Admin: 11/20/23 11:28 Dose: Not Given Spironolactone (Spironolactone 25 Mg Tab) 25 mg PO DAILY@1000 [facility] Last Admin: 11/20/23 09:39 Dose: 25 mg Social history: Lives with his and daughter. Smoked for 20 years 4 to 5 cigarettes a day stopped at the age of 38. No alcohol. Physical examination: VITAL SIGNS: Afebrile, 79, 16, 1 one 6 x 66, 95% on BiPAP GENERAL: More awake able to answer questions today. Bruising especially in both the arms EYES: Pupils equal. Conjunctiva dilma l. HEENT: External appearance of nose and ears normal, oral cavity grossly normal. NECK: JVD able to assess; masses not palpable. HEART: First and second heart sounds are normal; no edema. LUNGS: Respiratory rate increased; poor air entry. ABDOMEN: Soft, nontender, liver spleen not palpable, no masses palpable. PEG tube PSYCH: Able to answer simple questions MUSCULOSKELETAL:No Clubbing/cyanosis;muscles-grossly intact INVESTIGATIONS, reviewed in the clinical context: November 19: White count 26.2 hemoglobin 10.9 platelets 234 sodium 137 potassium 5 BUN 18 creatinine 0.53. Procalcitonin 1.11 November 18: White count 32.9 hemoglobin 14 platelets were 82 sodium 124 potassium 4.7 BUN 17 creatinine 0.45 Troponin I 0.012 ammonia less than 9 proBNP 1350 UA: Negative Influenza type A, B, RSV, COVID-19: Not detected ABG: pH 7.4 pCO2 58 pO2 62 EKG tracing personally reviewed by me-intraventricular conduction delay. Sinus rhythm. Chest x-ray film personally reviewed by me-cardiomegaly. Cannot rule out infiltrate Chest CTA: Negative for PE Assessment: -Acute asthma/COPD, in a [id number], causing respiratory failure: Slow to respond Xopenex. IV Solu-Medrol. -Acute metabolic/hypoxic encephalopathy on presentation: Some improvement -Suspicious of bilateral basilar pneumonia suspect gram-negative organism: Slow to respond IV cefepime, IV vancomycin MRSA screening nasopharyngeal swab -Acute on chronic hypoxic and hypercapnic respiratory failure: Slow to respond Remains on BiPAP 50% and 14/6 - PEG tube placement on 10/15/2023. NPO Dysphagia with silent aspiration noted on modified barium swallow, -Left vertebral artery stenosis history -Essential hypertension Entresto, Lopressor, -Left thyroid nodule measuring 2.9 cm, was to be followed up in the outpatient setting from last admission -Nonischemic cardiomyopathy/chronic congestive heart failure, EF 30-35% from April 2023 Entresto. Lopressor. -CAD, with stent to LAD in February 2023 Aspirin. Lipitor. Plavix. - AICD-history of ventricular tachycardia status post ablation, status post -History of previous ventilatory dependent respiratory failure secondary to COPD exacerbations -History of brain hemorrhage while on blood thinners Full code Discussed with patient. Continue with above treatment. Past Medical History Past Medical History: Asthma, COPD, Hyperlipidemia Additional Past Medical History / Comment(s): VTach, nonischemic cardiomyopathy, CHF, organized left ventricular apical clot, previous DVT ablation, asthma requiring intubation twice, BRAIN BLEED WHILE ON BLOOD THINNER RX 2009, cataracts bilaterally History of Any Multi-Drug Resistant Organisms: None Reported Past Surgical History: AICD, EPS, Pacemaker Additional Past Surgical History / Comment(s): 12/07/15 EPS wtih VT ablation. Other surgical hx: BRAIN SURGERY FOLLOWING BLEED. AICD/PACEMAKER, [facility]. generator change, Defibrilator testing Past Anesthesia/Blood Transfusion Reactions: No Reported Reaction Type of Cardiac Device: Permanent Pacemaker, AICD Device Placement Date:: 2005 implanted with gen change 2012 Past Psychological History: No Psychological Hx Reported Smoking Status: Never smoker Past Alcohol Use History: None Reported Past Drug Use History: None Reported - Past Family History Mother Family Medical History: No Reported History Additional Family Medical History / Comment(s): Mother at age 92 yrs. Father Family Medical History: No Reported History Additional Family Medical History / Comment(s): Father is healthy and 95 yrs old. Medications and Allergies Home Medications Medication Instructions Recorded Confirmed Type Montelukast [Singulair] 10 mg PO DAILY@1000 09/12/15 11/19/23 History Spironolactone [Aldactone] 25 mg PO DAILY@1000 09/12/15 11/19/23 History Levalbuterol Hfa Inhaler [Xopenex 1 puff INHALATION RT-Q6H PRN 07/17/17 11/19/23 History Hfa Inhaler] Levalbuterol Nebulized [Xopenex 1.25 mg INHALATION RT-QID 07/17/17 11/19/23 History Nebulized] Mexiletine HCl 200 mg PO TID@0600,1400,2200 01/30/23 11/19/23 History Atorvastatin [Lipitor] 80 mg PO HS@2200 03/14/23 11/19/23 History Amiodarone [Cordarone] 200 mg PO DAILY@1000 07/12/23 11/19/23 History Clopidogrel [Plavix] 75 mg PO DAILY@1000 07/12/23 11/19/23 History Sacubitril/Valsartan [Entresto 24 1 tab PO BID@1000,0 07/12/23 11/19/23 History mg-26 mg Tablet] Aspirin EC [Ecotrin Low Dose] 81 mg PO HS@22011/19/23 11/19/23 History Ezetimibe [Zetia] 10 mg PO DAILY@1000 11/19/23 11/19/23 History Metoprolol Tartrate [Lopressor] 12.5 mg PO BID@1000,219911/19/23 11/19/23 History Psyllium Husk 100% [Metamucil 6 gm PO BID@1000,219911/19/23 11/19/23 History Packet] predniSONE 10 mg PO DAILY@1000 11/19/23 11/19/23 History Allergies Allergy/AdvReac Type Severity Reaction Status Date / Time hydrocodone [From [place]] Allergy Difficulty Verified 11/19/23 12:16 breathing due to asthma ibuprofen Allergy Was told Verified 11/19/23 12:16 not to take while on Brilinta albuterol AdvReac Rapid Verified 11/19/23 12:16 Heart Rate Physical Exam Vitals: Vital Signs Temp Pulse Resp BP Pulse Ox FiO2 11/19/23 19:21 50 11/19/23 17:26 94 18 106/76 97 11/19/23 15:16 50 11/19/23 15:00 98.2 F 98 24 111/69 97 11/19/23 14:00 98 23 125/68 97 11/19/23 13:00 96 19 117/64 95 11/19/23 12:13 95 11/19/23 12:02 90 50 11/19/23 12:00 92 21 122/71 93 L 11/19/23 10:38 40 11/19/23 10:37 100 11/19/23 10:30 102 H 11/19/23 10:26 50 11/19/23 10:17 97.9 F 102 H 28 H 126/81 91 L Intake and Output 11/19/23 11/19/23 11/19/23 06:59 14:59 22:59 Other: Weight 70.307 kg Results CBC & Chem 7: 11/19/23 10:30 11/19/23 10:30 Labs: Abnormal Lab Results - Last 24 Hours (Table) 11/19/23 11/19/23 11/19/23 Range/Units 10:30 10:30 11:49 WBC 32.9 H (3.8-10.6) k/uL RDW 16.0 H (11.5-15.5) % Neutrophils # 26.4 H (1.3-7.7) k/uL Monocytes # 1.7 H (0-1.0) k/uL ABG pCO2 58 H (35-45) mmHg ABG pO2 62 L (83-108) mmHg ABG HCO3 35 H (21-25) mmol/L ABG Total CO2 37 H (19-24) mmol/L ABG O2 Saturation 90.9 L (94-97) % Sodium 124 L (137-145) mmol/L Chloride 87 L (98-107) mmol/L Carbon Dioxide 32 H (22-30) mmol/L Creatinine 0.45 L (0.66-1.25) mg/dL Glucose 147 H (74-99) mg/dL Calcium 8.2 L (8.4-10.2) mg/dL Total Protein 5.6 L (6.3-8.2) g/dL Albumin 3.0 L (3.5-5.0) g/dL Additional CC's: Alex Dominguez
[2023-11-20 16:18] LABS: Glucose,Whole Blood 166 mg/dL (70-110)
[2023-11-20] MEDS: SODIUM CHLORIDE 0.9% 1,000 ML IV SCH (16:20)
[2023-11-20 20:08] LABS: Glucose,Whole Blood 198 mg/dL (70-110)
[2023-11-21 06:15] LABS: Glucose,Whole Blood 194 mg/dL (70-110)
--- NOTE | 2023-11-21 10:17 | CDI ---
Documentation Clarification Form Date: 11/21/2023 09:41:53 AM From: Lidya Holloway RN, CCDS Phone: [phone] Admit Date: 11/19/2023 02:19:00 PM Patient Name: Surendra Chahal Visit Number: [id number] Discharge Date: ATTENTION: The Clinical Documentation Specialists (CDI) and [facility] Coding Staff appreciate your assistance in clarifying documentation. Please respond to the clarification below the line at the bottom and electronically sign. The CDI & [facility] Coding staff will review the response and follow-up if needed. Please note: Queries are made part of the Legal Health Record. If you have any questions, please contact the author of this message via ITS. Dr. Trey Doshi The patient has elevated leukocytosis of 32.9, heart rate 102, respiration 28 ED notes have patient technically meets sepsis criteria. Based on this information and the findings below, is there an additional diagnosis that is clinically appropriate for this patient? History/Risk Factors: Asthma, COPD, Hyperlipidemia Clinical Indicators: 73-year-old male who presents with difficulty in breathing. Has diffuse wheezes. 11/18 H/P: Acute COPD exacerbation, causing respiratory failure. 11/19 Progress note: Suspicious of bilateral basilar pneumonia suspect gram- negative organism: Slow to respond. WBC 32.9, 26.2, Lactic acid: 1.2 11/18 Blood cultures: Preliminary No growth after 24 hours (Final pending) 11/18 Vital signs: 126/81 102 28 97.9 91 % BiPAP, 122/71 92 21 93% BiPAP 327 CXR: No acute pulmonary process. Cardiomegaly 11/19 CXR: Left lower lobe retrocardiac infiltrate. Correlate for pneumonia. Mild tracheal right base. Correlate for atelectasis or pneumonia. 11/19 Chest CTA: No PE. Moderately severe emphysema. Bibasilar pneumonia. Trace pleural effusion. 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 [ + ] Sepsis, present on admission [ ] Sepsis, Ruled out [ ] Other, please specify [ ] Unable to determine SIRS Criteria: 2 or more of the following may indicate SIRS Temperature < 96.8F (36C) or > 101.0F (38.3C) Heart Rate > 90 bpm Respiratory Rate > 20 breaths/min or PaCO2 < 32 mmHg White Blood Cell Count > 12,000 or < 4,000 cells/mm3 or > 10% bands (Template Last Reviewed: August 2022) MTDD
--- NOTE | 2023-11-21 10:18 | CA ---
Transthoracic Echo Report Name: Surendra Chahal Age: 73 Gender: M : 1950 Exam Date: 11/20/2023 14:40 Exam Location: [place] [facility] Ht (in): 71 Wt (lb): 155 Ordering Physician: Helen Davidson Attending/Referring Phys: [id number], [facility] Educator Christine Hackett RDCS Procedure CPT: Indications: LVF Cardiac Hx: Technical Quality: Technically difficult study Contrast 1: Definity Total Dose (mL): 2 Contrast 2: Total Dose (mL): MEASUREMENTS (Male / Female) Normal Values 2D ECHO LV Diastolic Diameter PLAX 5.2 cm 4.2 - 5.9 / 3.9 - 5.3 cm LV Systolic Diameter PLAX 4.5 cm IVS Diastolic Thickness 1.8 cm 0.6 - 1.0 / 0.6 - 0.9 cm LVPW Diastolic Thickness 1.5 cm 0.6 - 1.0 / 0.6 - 0.9 cm LV Relative Wall Thickness 0.6 M-MODE Aortic Root Diameter MM 3.5 cm LA Systolic Diameter MM 5.4 cm LA Ao Ratio MM 1.5 AV Cusp Separation MM 2.0 cm FINDINGS Left Ventricle Severely increased septal wall thickness. Dufur akinetic. Probable left ventricular apical thrombus. Left ventricular ejection fraction is estimated at 30-35 %. Right Ventricle Right Atrium Left Atrium Mitral Valve Aortic Valve Tricuspid Valve Pulmonic Valve Pericardium No pericardial effusion. Aorta CONCLUSIONS Limited study Severely Dilated LV cavity LVEF 15 to 20% Apical thrombus appreciated in LV cavity. No pericardial effusion Previewed by: Dr Ramakrishna Adamson (Electronically Signed) Final Date: 21 November 2023 10:17
--- NOTE | 2023-11-21 10:45 | CDI ---
Documentation Clarification Form Date: 11/21/2023 10:27:26 AM From: Lidya Holloway RN, CCDS Phone: [phone] Admit Date: 11/19/2023 02:19:00 PM Patient Name: Surendra Chahal Visit Number: [id number] Discharge Date: ATTENTION: The Clinical Documentation Specialists (CDI) and [facility] Coding Staff appreciate your assistance in clarifying documentation. Please respond to the clarification below the line at the bottom and electronically sign. The CDI & [facility] Coding staff will review the response and follow-up if needed. Please note: Queries are made part of the Legal Health Record. If you have any questions, please contact the author of this message via ITS. Dr. Trey Doshi Suspicious of bilateral basilar pneumonia suspect gram-negative organism, which may lack sufficient clinical evidence/support in the medical record. Additional clarification is requested. History/Risk Factors: Asthma, COPD, Hyperlipidemia Clinical Indicators: 73-year-old male who presents with difficulty in breathing. Has diffuse wheezes. WBC 32.9, 26.2, Lactic acid: 1.2 11/18 Blood cultures: Preliminary No growth after 24 hours (Final pending) 11/18 Vital signs: 126/81 102 28 97.9 91 % BiPAP, 122/71 92 21 93% BiPAP 327 CXR: No acute pulmonary process. Cardiomegaly 11/19 CXR: Left lower lobe retrocardiac infiltrate. Correlate for pneumonia. Mild tracheal right base. Correlate for atelectasis or pneumonia. 11/19 Progress note attending: Suspicious of bilateral basilar pneumonia suspect gram-negative organism: Slow to respond. 11/19 Pulmonary progress note: Suspect bibasilar pneumonia, aspiration pneumonia unless proven otherwise. Treatment: Cell Support Operator/Telemetry Maxipime 2 GM IVPB Q 8 HRS 11/18-11/20 Solu-Medrol 60 MG IVPB Q 6 HRS 11/18-11/20 Vancomycin 1,250 MG IVPB Once 11/18 then PTD Q 12 HRS 11/19-11/20 Please clarify if bilateral basilar pneumonia suspect gram-negative organism is a valid diagnosis? [ ] Yes, bilateral basilar pneumonia suspect gram-negative organism is present as evidence by (additional clinical support): [ ] No, bilateral basilar pneumonia suspect gram-negative organism is ruled out. [ + ] Other (please specify diagnosis) [ ] Unable to determine. (Template Last Revised: October 2020) MTDD
[2023-11-21 11:39] LABS: Glucose,Whole Blood 172 mg/dL (70-110)
--- NOTE | 2023-11-21 11:58 | CT ---
EXAMINATION TYPE: CT lumbar spine wo con CT DLP: 924.8 mGycm, Automated exposure control for dose reduction was used. DATE OF EXAM: 11/21/2023 6:45 AM COMPARISON: None. CLINICAL INDICATION:Male, 73 years old with history of low back with left foot drop; PHH, lower back pain TECHNIQUE: Multiple axial images were obtained from the midportion of T11 through the sacroiliac umair nts. Soft tissue and bone windows in coronal and sagittal planes were obtained and reviewed. Contrast used: mL of , (None, if empty). Oral contrast used: (None, if empty). FINDINGS: Alignment: There are 5 lumbar type vertebral bodies with levoscoliosis apex L4. Bone: Moderate to severe degeneration changes throughout the lumbar spine with thickened spinal, ost eophytes, disc space narrowing, facet joint arthropathy and endplate sclerosis. There is Discs: T12-L1: No spinal canal or neural foraminal stenosis is identified. L1-L2: Facet joint arthropathy and disc bulging result with mild spinal canal stenosis and mild bilat eral neural foraminal stenosis. L2-L3: Facet joint arthropathy, osteophytes and disc bulging result in mild spinal canal stenosis and moderate bilateral neural foraminal stenosis. L3-L4: Facet joint arthropathy, osteophytes and disc bulging result in mild spinal canal stenosis and moderate bilateral neural foraminal stenosis. L4-L5: Facet joint arthropathy, osteophytes and disc bulging result in mild spinal canal stenosis and severe right and moderate left neural foraminal stenosis. L5-S1: Facet joint arthropathy, osteophytes and disc bulging result in mild spinal canal stenosis and severe left and moderate right neural foraminal stenosis. Other: Moderate atherosclerosis of the arterial vasculature. Nonobstructing left superior 2 mm calcul us. IMPRESSION: 1. No evidence for spinal fracture. 2. Severe degeneration changes of the spine with neural foraminal stenosis worse at L5-S1 severe left , L4-L5 severe right
[2023-11-21] MEDS: HEPARIN SODIUM 1,000 UN/ML (10ML VL) IV ONE (12:23)
[2023-11-21] MEDS: HEPARIN SOD,PORK IN 0.45% NACL 25,000 UNIT in 0.45% NACL 1 250ML.BAG IV SCH (12:23)
--- NOTE | 2023-11-21 13:14 | P.PN ---
Progress Note - Text Progress Note Date: 11/21/23 Chief Complaint: Short of breath 73-year-old male patient with a known history of nonischemic cardiomyopathy, ventricular tachycardia with previous ablation, AICD placement, hyperlipidemia, former smoker, chronic obstructive pulmonary disease. Patient was in the hospital over a month ago. Admitted with COPD exacerbation, pill induced esophagitis, noted to have silent aspiration and a PEG tube was placed. Patient now presents with increasing shortness of breath. Bit altered mentation. Nonproductive cough. The last few days. At home about 2 L of nasal cannula. Symptoms became much worse this morning around 6 AM. Patient had to be placed on BiPAP. When I came to see this patient he was rather lethargic tired not really able to give much of a history. November 19: Patient still remains overflow in the ER room ED-1. More awake. On BiPAP. Spoke to the nurse to make sure the PEG tube feeding is started. Medications through the PEG tube. Patient does live with his and daughter. On IV cefepime, IV vancomycin. IV Solu-Medrol. Bronchodilators. Will send off nasopharyngeal MRSA swab. Short of breath. Tired. Additional information from cardiology notes: Cardiac catheterization February 2023: Stenting of proximal and mid LAD. 2D echo in April 2023: EF 30 to 35%. November 20: Breathing better. Up in a recliner. On nasal cannula 2 L. Patient daughter at the bedside. Discussed. She wishes patient to remain full code. Discussed with dietitian or Stephanie at the bedside. Plan to change to bolus feeding. Fluids continue to be restricted. For low sodium. Active Medications Albuterol/Ipratropium (Ipratropium-Albuterol 3 Ml Neb) 3 ml INHALATION RT-Q2H PRN PRN Reason: Shortness Of Breath Or Wheezing Last Admin: 11/20/23 08:45 Dose: 3 ml Amiodarone HCl (Amiodarone 200 Mg Tab) 200 mg PO DAILY@1000 [facility] Last Admin: 11/21/23 09:25 Dose: 200 mg Aspirin (Aspirin 81 Mg) 81 mg PO HS@2200 [facility]IGUEL Last Admin: 11/20/23 20:59 Dose: 81 mg Atorvastatin Calcium (Atorvastatin 80 Mg Tab) 80 mg PO HS@2200 JO[facility] MIGUEL Last Admin: 11/20/23 20:59 Dose: 80 mg Clopidogrel Bisulfate (Clopidogrel 75 Mg Tab) 75 mg PO DAILY@1000 [facility] Last Admin: 11/21/23 09:25 Dose: 75 mg Ezetimibe (Ezetimibe 10 Mg Tab) 10 mg PO DAILY@1000 [facility] Last Admin: 11/21/23 09:25 Dose: 10 mg Heparin Sodium (Porcine) (Heparin Sodium 1,000 Un/Ml (10ml Vl)) 0 unit IV PER PROTOCOL PRN; Protocol PRN Reason: Low PTT Cefepime HCl 2 gm/ Sodium (Chloride) 100 mls @ 25 mls/hr IVPB Q8HR [facility]; Protocol Last Admin: 11/21/23 09:24 Dose: 25 mls/hr Vancomycin HCl 1,250 mg/ (Sodium Chloride) 250 mls @ 125 mls/hr IVPB Q12H [facility] Last Admin: 11/21/23 03:36 Dose: 125 mls/hr Sodium Chloride (Saline 0.9%) 1,000 mls @ 50 mls/hr IV .Q20H [facility] Last Admin: 11/21/23 12:25 Dose: Not Given Heparin Sodium/Sodium Chloride (25,000 unit/ Sodium Chloride) 250 mls @ 8.94 mls/hr IV .Q24H [facility]; Protocol Last Admin: 11/21/23 12:23 Dose: 12 units/kg/hr, 8.94 mls/hr Methylprednisolone Sodium Succinate (Methylprednisolone Sod Succi 125 Mg/2 Ml Vial) 60 mg IV Q6HR [facility] Last Admin: 11/21/23 12:22 Dose: 60 mg Metoprolol Tartrate (Metoprolol Tartrate 12.5 Mg Tab) 12.5 mg PO BID@1000,2200 [facility] Last Admin: 11/21/23 09:25 Dose: 12.5 mg Mexiletine HCl (Mexiletine 200 Mg Cap) 200 mg PO TID@0600,1400,2200 [facility] Last Admin: 11/21/23 05:56 Dose: 200 mg Miscellaneous Information (Vancomycin Trough Due 1 Each Misc) 0 each MISCELLANE DIRECTED ONE Stop: 11/21/23 14:01 Montelukast Sodium (Montelukast 10 Mg Tab) 10 mg PO DAILY@1000 [facility] Last Admin: 11/21/23 09:25 Dose: 10 mg Naloxone HCl (Naloxone 0.4 Mg/Ml 1 Ml Vial) 0.2 mg IV Q2M PRN PRN Reason: Opioid Reversal Levalbuterol 1.25 Mg Inhaled Solution Neb 1 puff INHALATION RT-Q6H PRN PRN Reason: Shortness Of Breath Levalbuterol Nebulized 1.25 Mg/3 Ml Nebule 1.25 mg INHALATION RT-QID [facility] Last Admin: 11/21/23 11:40 Dose: 1.25 mg Psyllium Hydrophilic Mucilloid (Psyllium Husk 100% 6 Gm Packet) 6 gm PO BID@1000,2200 [facility] Last Admin: 11/21/23 09:25 Dose: 6 gm Spironolactone (Spironolactone 25 Mg Tab) 25 mg PO DAILY@1000 [facility] Last Admin: 11/21/23 09:25 Dose: 25 mg Social history: Lives with his and daughter. Smoked for 20 years 4 to 5 cigarettes a day stopped at the age of 38. No alcohol. Physical examination: VITAL SIGNS: 97.9, 89, 18, 142 x 74, 94% on 2 L GENERAL: Reclining in chair, awake answering simple questions. Bruising on both extremities. EYES: Pupils equal. Conjunctiva dilma l. HEENT: External appearance of nose and ears normal, oral cavity grossly normal. NECK: JVD able to assess; masses not palpable. HEART: First and second heart sounds are normal; no edema. LUNGS: Respiratory rate increased; decreased breath sounds. ABDOMEN: Soft, nontender, liver spleen not palpable, no masses palpable. PEG tube PSYCH: Able to answer simple questions MUSCULOSKELETAL:No Clubbing/cyanosis;muscles-grossly intact INVESTIGATIONS, reviewed in the clinical context: November 19: White count 26.2 hemoglobin 10.9 platelets 234 sodium 137 potassium 5 BUN 18 creatinine 0.53. Procalcitonin 1.11 November 18: White count 32.9 hemoglobin 14 platelets were 82 sodium 124 potassium 4.7 BUN 17 creatinine 0.45 Troponin I 0.012 ammonia less than 9 proBNP 1350 UA: Negative Influenza type A, B, RSV, COVID-19: Not detected ABG: pH 7.4 pCO2 58 pO2 62 EKG tracing personally reviewed by me-intraventricular conduction delay. Sinus rhythm. Chest x-ray film personally reviewed by me-cardiomegaly. Cannot rule out infiltrate Chest CTA: Negative for PE Assessment: -Acute asthma/COPD, in a [id number], causing respiratory failure: Clinical improvement Xopenex. IV Solu-Medrol decreased to 40 mg every 8. -Acute metabolic/hypoxic encephalopathy on presentation: Much better -Suspicious of bilateral basilar pneumonia suspect gram-negative organism: Better IV cefepime, IV vancomycin MRSA screening nasopharyngeal swab -Acute on chronic hypoxic and hypercapnic respiratory failure: Better On BiPAP on admission. Now on 2 L nasal cannula - PEG tube placement on 10/15/2023. NPO by mouth Dysphagia with silent aspiration noted on modified barium swallow, PEG tube feeding continue as per dietitian -Left vertebral artery stenosis history -Essential hypertension Entresto, Lopressor, -Left thyroid nodule measuring 2.9 cm, was to be followed up in the outpatient setting from last admission -Nonischemic cardiomyopathy/chronic congestive heart failure, EF 30-35% from April 2023 Entresto. Lopressor. -CAD, with stent to LAD in February 2023 Aspirin. Lipitor. Plavix. - AICD-history of ventricular tachycardia status post ablation, status post -History of previous ventilatory dependent respiratory failure secondary to COPD exacerbations -History of brain hemorrhage while on blood thinners -Full code Discussed at length with the daughter at the bedside. Patient remain full code. Tube feeding is being adjusted by the dietitian. Fluids discussed. Past Medical History Past Medical History: Asthma, COPD, Hyperlipidemia Additional Past Medical History / Comment(s): VTach, nonischemic cardiomyopathy, CHF, organized left ventricular apical clot, previous DVT ablation, asthma requiring intubation twice, BRAIN BLEED WHILE ON BLOOD THINNER RX 2009, cataracts bilaterally History of Any Multi-Drug Resistant Organisms: None Reported Past Surgical History: AICD, EPS, Pacemaker Additional Past Surgical History / Comment(s): 12/07/15 EPS [facility] VT ablation. Other surgical hx: BRAIN SURGERY FOLLOWING BLEED. AICD/PACEMAKER, [facility]. generator change, Defibrilator testing Past Anesthesia/Blood Transfusion Reactions: No Reported Reaction Type of Cardiac Device: Permanent Pacemaker, AICD Device Placement Date:: 2005 implanted with gen change 2012 Past Psychological History: No Psychological Hx Reported Smoking Status: Never smoker Past Alcohol Use History: None Reported Past Drug Use History: None Reported
--- NOTE | 2023-11-21 13:22 | P.PN ---
Subjective Progress Note Date: 11/21/23 I am following with patient and patient feels he is doing better. Daughter states he is more awake and responsive today. Objective - Vital Signs Vital signs: Vital Signs Temp 97.9 F 11/21/23 09:20 Pulse 79 11/21/23 12:20 Resp 17 11/21/23 12:20 BP 129/67 11/21/23 12:20 Pulse Ox 94 L 11/21/23 12:20 FiO2 35 11/20/23 12:07 Intake & Output 11/20/23 11/21/23 11/21/23 18:59 06:59 18:59 Intake Total 0 452 Output Total 600 280 200 Balance -600 172 -200 Weight 70.307 kg 74.5 kg Intake: Oral 0 Tube Feeding 392 Other 60 Output: Urine 600 280 200 Other: Voiding Method Urinal Urinal # Voids 1 1 # Bowel Movements 1 1 - Exam GENERAL: The patient is sitting in a recliner chair and is not in acute distress. NEUROLOGICAL: Higher mental function: The patient is awake, alert, oriented to self, place. Patient is following commands. No aphasia and no neglect. Cranial nerves: The pupils are round, equal and reactive to light. Visual cuevas are full to confrontation throughout. Extraocular movement is intact no nystagmus is noted. Facial sensation is normal to touch throughout. The facial strength is normal throughout. Hearing is moderately decreased bilaterally to hand rub. Tongue is midline and moved [id number] without any difficulty. Has hypophonia. Shoulder shrug is normal bilaterally. Motor: The strength is 5 over 5 throughout uppers. Has left foot drop. Left ankle plantarflexion: Has some effort related but has antigravity. Has slight decrease tone over the left foot . Normal bulk. Cerebellum: Normal finger to nose bilaterally. Sensation: Sensation is normal to touch throughout. Reflexes (right/left): 1+ Plantars are mute bilaterally. Some of the work-up during this hospital visit consisted of: Initial pulse ox is 91% liters on BiPAP currently it's improved and he is on 2 L of nasal cannula. His sodium is 124 and the repeated one is 127. CT of the head is reported as no acute intracranial process. Microangiopathic. Evidence of previous darshan hole. I personally reviewed this to the head and I agree there is no acute subacute ischemia. Patient seems to have left frontal encephalomalacia. Which was seen on prior CTs at least since January 2023. 2-D echo was reported as severely dilated left ventricular cavity. Ejection fraction of 15-20%. Apical thrombus appreciated in the left ventricle cavity. - Labs CBC & Chem 7: 11/20/23 03:23 11/20/23 03:23 Labs: Abnormal Lab Results - Last 24 Hours (Table) 11/20/23 11/20/23 11/21/23 Range/Units 16:17 20:04 06:12 POC Glucose (mg/dL) 166 H 198 H 194 H (70-110) mg/dL 11/21/23 Range/Units 11:36 POC Glucose (mg/dL) 172 H (70-110) mg/dL Microbiology - Last 24 Hours (Table) 11/19/23 12:13 Blood Culture - Preliminary Blood 11/19/23 12:41 Blood Culture - Preliminary Blood Assessment and Plan Assessment: This is a 73-year-old gentleman who presented because of hypoxia with a pulse ox of 88% with confusion. He was also found to have hyponatremia as well. Altered mental status due to metabolic encephalopathy as well as hypoxic encephalopathy--mentation improved. CT of the head is negative for any acute or subacute stroke Hyponatremia as low as 124 slightly trending up to 127 Apical thrombus on left ventricle Hypoxia---resolved Left foot drop going on for months with ongoing chronic lower back pain Dysphagia status post PEG tube History of brain bleed status post bur holes and has and supplements over the left frontal History of nonischemic cardiomyopathy as well as congestive heart farther status post AICD History of COPD Plan: Pending CT of the lumbar per the daughter's request because of left foot drop. I recommend the EMG with nerve conduction study as an outpatient of the [facility] to rule out any radiculopathy or neuropathy. Regarding his dysphagia and further workup of his left foot drop recommend the patient to follow-up with a neurologist as an outpatient. They will attempt to follow-up with Dr. Parks patient has an apical thrombus over the left ventricle and we'll defer the management to the cardiology team. We'll defer the rest of the medical measure the primary and other specialists The plan was discussed with the patient and his daughter was at bedside. Time with Patient: Less than 30
[2023-11-21 13:33] LABS: INR 0.9 (<1.2)
[2023-11-21 13:36] LABS: Anisocytosis Slight; Basophils % (A) 0 %; Eosinophils % (A) 0 %; HCT 36.3 % (39.0-53.0); HGB 11.6 gm/dL (13.0-17.5); Hypochromasia Moderate; Lymphocytes # (A) 3.1 k/uL (1.0-4.8); Lymphocytes % (A) 16 %; Macrocytosis Slight; Mean Platelet Volume 8.6; Monocytes # (A) 0.8 k/uL (0-1.0); Monocytes % (A) 4 %; Neutrophils # (A) 15.1 k/uL (1.3-7.7); Neutrophils % (A) 79 %; Platelet Count 229 k/uL (150-450); RBC 3.63 m/uL (4.30-5.90); WBC 19.2 k/uL (3.8-10.6)
--- NOTE | 2023-11-21 13:40 | P.PN ---
Subjective Progress Note Date: 11/21/23 Consult reason: congestive heart failure History of present illness: This is a 73-year-old male patient of Dr. Li with past medical history of V. tach status post AICD, ischemic cardiomyopathy, coronary artery disease, hyperlipidemia, left vertebral artery stenosis, COPD. We have been asked to evaluate the patient for heart failure. Patient seen today in the emergency center waiting for a bed on the cardiac stepdown unit. History is obtained from the patient's daughter as patient is currently on BiPAP. She states that she got up this morning was preparing to do his tube feeding and found that he was hypoxic. He was doing very well until yesterday morning at 6 AM. His pulse ox was 88%. She tried to increase his oxygen flow level but this did not help his pulse ox. She then called 911 patient was brought into the emergency center for further evaluation. EKG sinus rhythm with IVCD Chest x-ray: Left lower lobe retrocardiac infiltrate correlate for pneumonia. Subsegmental atelectasis or pneumonia is on the right base. CTA of the chest showed no evidence of pulmonary embolism. Moderate severe emphysema. Bibasilar pneumonia. Trace pleural effusion. WBC 26.2, hemoglobin 10.9, platelet count 234. INR 0.9. Sodium 127, potassium 5, CO2 32, chloride 94, BUN 18 creatinine 0.54. Blood sugar 135. Troponin negative x 1. proBNP 1350. Urinalysis negative. Influenza A, influenza B, RSV, COVID-19 detected. Home cardiac medications: Amiodarone 200 mg daily, aspirin 81 mg daily, atorvastatin 80 mg at bedtime, Plavix 75 mg daily, Zetia 10 mg daily, Lopressor 12.5 mg twice daily, Entresto 24 to 26 mg twice daily, Aldactone 25 mg daily. 02/11/2023 EP procedure: Cinefluoroscopy of the leads was performed, Atrial lead, active fix, in the right atrial appendage. No fractures or breaks. ICD lead shows evidence of deteriorating and may implant new ICD lead along with ICD generator change. Cardiac catheterization 02/26/2023 revealed critical disease involving the proximal and mid LAD with extremely calcified and eccentric lesion. Successful stenting of proximal and mid LAD. Echocardiogram performed in the office on 05/22/2023 revealed EF of 30 to 35%, trace aortic regurgitation, mildly dilated left atrium, ascending aorta is enlarged. Mild mitral rotation, mild tricuspid regurgitation. Normal pulmonary artery systolic pressure. Mild pulmonic regurgitation. 11/20 Patient states that his breathing is better today. He is off BiPAP currently on O2 at 2 L nasal cannula with pulse ox 94%. Blood pressure 129/67, heart rate in the 70s and 80s. Limited echocardiogram reveals severely dilated LV cavity. EF 15 to 20%. Apical thrombus in the LV cavity. No pericardial effusion. Physical examination: Gen: This is a 73-year-old male in no acute respiratory distress. VS: reviewed HEENT: Head is atraumatic, normocephalic. Pupils equal, round. Sclerae is anicteric. LUNGS: Fair bilateral air exchange with scattered bilateral rhonchi. No intercostal retractions. HEART: Distant heart sounds, regular rate and rhythm. ABDOMEN: Soft No tenderness. EXTREMITIES: No pedal edema. No calf tenderness. NEUROLOGICAL: Patient is awake, alert. Assessment: Acute hypoxic respiratory failure secondary to acute COPD exacerbation Left ventricular apical thrombus Hyponatremia History of ischemic cardiomyopathy without overt heart failure Rule out sepsis Pneumonia History of ventricular tachycardia status post AICD Coronary artery disease with previous stent of the proximal and mid LAD Plan: Continue patient's home cardiac medications Patient will be started on heparin drip Further recommendations as patient progresses Nurse practitioner note has been reviewed, I agree with documented findings and plan of care. Patient was seen and examined. Objective - Vital Signs Vital signs: Vital Signs Temp 98.5 F 11/21/23 04:00 Pulse 85 11/21/23 07:57 Resp 20 11/21/23 04:00 BP 116/67 11/21/23 04:00 Pulse Ox 96 11/21/23 07:46 FiO2 35 11/20/23 12:07 Intake & Output 11/20/23 11/21/23 11/21/23 18:59 06:59 18:59 Intake Total 0 452 Output Total 600 280 Balance -600 172 Weight 70.307 kg 74.5 kg Intake: Oral 0 Tube Feeding 392 Other 60 Output: Urine 600 280 Other: Voiding Method Urinal # Voids 1 1 # Bowel Movements 1 - Labs CBC & Chem 7: 11/20/23 03:23 11/20/23 03:23 Labs: Abnormal Lab Results - Last 24 Hours (Table) 11/20/23 11/20/23 11/21/23 Range/Units 16:17 20:04 06:12 POC Glucose (mg/dL) 166 H 198 H 194 H (70-110) mg/dL Microbiology - Last 24 Hours (Table) 11/19/23 12:13 Blood Culture - Preliminary Blood 11/19/23 12:41 Blood Culture - Preliminary Blood
[2023-11-21 13:41] LABS: Partial Thromboplastin Time 20.1 sec (22.0-30.0)
--- NOTE | 2023-11-21 15:08 | P.PN ---
Subjective Progress Note Date: 11/21/23 Principal diagnosis: Acute metabolic encephalopathy with acute on chronic hypoxic respiratory failure and bibasilar pneumonia/aspiration pneumonia This is a very pleasant 73-year-old male patient with a known history of nonischemic cardiomyopathy, ventricular tachycardia with previous ablation, AICD placement, hyperlipidemia, former smoker, chronic obstructive pulmonary disease, intracranial hemorrhage while on blood thinners back in 2009 with subsequent surgery. He was recently here in the hospital after having difficulty swallowing after having a choking episode taking his pills. He did undergo EGD however no foreign body were noted in the esophagus. Continued to have ongoing issues with difficulty swallowing and subsequently had a PEG tube placed on August 14, 2024. He was subsequently discharged home. He was brought back into the hospital today after being found to have progressive weakness, shortness of breath and low oxygen readings per his daughter. He is on home oxygen typically only 1 or 2 L per nasal cannula. He was found to be in significant shortness of breath with bronchospasm and wheezing and difficult to arouse. He was placed on BiPAP 12/6 and 50% FiO2 to maintain O2 saturation in the low 90s.'s x-ray revealed no acute pulmonary process. CT scan of the brain revealed no acute intracranial abnormalities. There is evidence of bur holes. White count 32.9. Hemoglobin 14.0. Platelets 182. INR 0.9. Sodium 124. Potassium 4.7. Bicarb 32. BUN 17. Creatinine 0.45. Glucose 147. proBNP 1350. Troponin negative x 1. Influenza screen was negative. Arterial blood gases on 50% FiO2 revealed a PaO2 of 62, pCO2 58 and a pH of 7.40. He is seen today in consultation in the emergency department. Resting on a stretcher. He is continued on BiPAP. He is a bit more arousable. Denies any worsening shortness of breath. O2 saturations in the mid 90s. He is afebrile. Hemodynamically stable. Patient was reevaluated today on 11/20/2023, patient was reevaluated again while in the ER, mentation seems to be a bit better, patient remains hemodynamically stable, he is empirically on antibiotics for presumptive aspiration pneumonia as noted on CT angiogram of the chest, and there was no evidence of pulmonary embolism. WBC count remains elevated at 26.2 hemoglobin is 10.9. Sodium is up to 127 renal profile is normal bicarb is 32 procalcitonin level is 1.11 patient is now on 2 L nasal cannula, he was earlier on BiPAP, and his O2 sats is 95%. Blood pressure is 100/78. Patient was reevaluated today on 11/21/2023, patient is much more awake today, feels much better, he is on nasal cannula at 2 L/min and O2 sats is 94%. He is hemodynamically stable, daughter is at bedside, she had lots of questions about his pneumonia and suspicion for aspiration, and all her questions were answered. Continues to have leukocytosis WBC count of 19.2 hemoglobin 11.6. Patient is doing well overall. Better compared to how he presented Objective - Vital Signs Vital signs: Vital Signs Temp 97.9 F 11/21/23 09:20 Pulse 79 11/21/23 12:20 Resp 17 11/21/23 12:20 BP 129/67 11/21/23 12:20 Pulse Ox 94 L 11/21/23 12:20 FiO2 35 11/20/23 12:07 Intake & Output 11/20/23 11/21/23 11/21/23 18:59 06:59 18:59 Intake Total 0 452 Output Total 600 280 200 Balance -600 172 -200 Weight 70.307 kg 74.5 kg 74.5 kg Intake: Oral 0 Tube Feeding 392 Other 60 Output: Urine 600 280 200 Other: Voiding Method Urinal Urinal # Voids 1 1 # Bowel Movements 1 1 - Exam GENERAL EXAM: Arousable, 73-year-old male, on nasal cannula, not in distress. HEAD: Normocephalic. EYES: Normal reaction of pupils, equal size. NOSE: Clear with pink turbinates. THROAT: No erythema or exudates. NECK: No masses, no JVD. CHEST: No chest wall deformity. LUNGS: Minich breath sounds and crackles at the bases no rhonchi no wheezes CVS: S1 and S2 normal with no audible murmur, regular rhythm. ABDOMEN: No hepatosplenomegaly, normal bowel sounds, no guarding or rigidity. SKIN: No rashes CENTRAL NERVOUS SYSTEM: Arousable, follows simple instructions but a bit confused. EXTREMITIES: No clubbing edema or cyanosis. - Labs CBC & Chem 7: 11/21/23 12:16 11/20/23 03:23 Labs: Abnormal Lab Results - Last 24 Hours (Table) 11/20/23 11/20/23 11/21/23 Range/Units 16:17 20:04 06:12 WBC (3.8-10.6) k/uL RBC (4.30-5.90) m/uL Hgb (13.0-17.5) gm/dL Hct (39.0-53.0) % RDW (11.5-15.5) % Neutrophils # (1.3-7.7) k/uL APTT (22.0-30.0) sec POC Glucose (mg/dL) 166 H 198 H 194 H (70-110) mg/dL 11/21/23 11/21/23 11/21/23 Range/Units 11:36 12:16 12:16 WBC 19.2 H (3.8-10.6) k/uL RBC 3.63 L (4.30-5.90) m/uL Hgb 11.6 L (13.0-17.5) gm/dL Hct 36.3 L (39.0-53.0) % RDW 16.0 H (11.5-15.5) % Neutrophils # 15.1 H (1.3-7.7) k/uL APTT 20.1 L (22.0-30.0) sec POC Glucose (mg/dL) 172 H (70-110) mg/dL Microbiology - Last 24 Hours (Table) 11/19/23 12:13 Blood Culture - Preliminary Blood 11/19/23 12:41 Blood Culture - Preliminary Blood Assessment and Plan Assessment: Impression: Altered mental status and progressive weakness suspect secondary to hypoxemia Suspect bibasilar pneumonia, aspiration pneumonia unless proven otherwise. Acute on chronic hypoxemic respiratory failure secondary to COPDand secondary to bibasilar pneumonia as noted on CT angiogram of the chest Leukocytosis secondary to aspiration pneumonia Hypovolemic hyponatremia, improving Recent hospitalization for dysphagia with eventual PEG tube insertion on October 15, 2023 Nonischemic cardiomyopathy status post AICD placement initially in 2005 with generator change in 2012 History of intracranial hemorrhage requiring surgical intervention secondary to blood thinners in 2009 History of ventilatory dependent respiratory failure secondary to COPD/asthma exacerbation Non-smoker Recommendation: Change antibiotic to Zosyn and discontinue vancomycin, discontinue cefepime Continue bronchodilators Continue oxygen and titrate accordingly Continue steroids Continue Xopenex Procalcitonin was checked and noted to be a bit elevated Check blood cultures, are negative so far. Continue nutritional suppor'st/enteral feeding via PEG tube Will continue to follow Time with Patient: Less than 30
[2023-11-21 15:23] LABS: African American GFR (CKD) >90 (>60 ml/min/1.73 sqM); Non-African American GFR(CKD) >90 (>60 ml/min/1.73 sqM)
[2023-11-21] MEDS: methylPREDNISolone SOD SUCCI 40 MG/ML 1 ML VIAL IV SCH (15:54)
[2023-11-21] MEDS: PIPERACILLIN-TAZOBACTAM 3.375 GM in SODIUM CHLORIDE 0.9% 100 ML IVPB SCH (15:54)
[2023-11-21] MEDS: VANCOMYCIN TROUGH DUE 1 EACH MISC MISCELLANE ONE (16:28)
[2023-11-21 16:49] LABS: Glucose,Whole Blood 218 mg/dL (70-110)
[2023-11-21 20:05] LABS: Glucose,Whole Blood 206 mg/dL (70-110)
[2023-11-21] MEDS: HEPARIN SODIUM 1,000 UN/ML (10ML VL) IV PRN (20:49)
[2023-11-22 03:09] LABS: Basophils % (A) 0 %; Eosinophils % (A) 0 %; HCT 32.9 % (39.0-53.0); HGB 10.5 gm/dL (13.0-17.5); Hypochromasia Slight; Lymphocytes # (A) 3.5 k/uL (1.0-4.8); Lymphocytes % (A) 19 %; MCH 31.8 pg (25.0-35.0); MCV 99.5 fL (80.0-100.0); Macrocytosis Slight; Monocytes # (A) 0.6 k/uL (0-1.0); Monocytes % (A) 4 %; Neutrophils # (A) 13.8 k/uL (1.3-7.7); Neutrophils % (A) 76 %; Platelet Count 241 k/uL (150-450); RBC 3.31 m/uL (4.30-5.90); RDW 15.8 % (11.5-15.5); WBC 18.1 k/uL (3.8-10.6)
[2023-11-22 03:17] LABS: INR 0.9 (<1.2); Partial Thromboplastin Time 46.4 sec (22.0-30.0); Prothrombin Time 10.4 sec (10.0-12.5)
[2023-11-22 03:25] LABS: African American GFR (CKD) >90 (>60 ml/min/1.73 sqM); Anion Gap -1 mmol/L; Blood Urea Nitrogen 31 mg/dL (9-20); Calcium 8.1 mg/dL (8.4-10.2); Carbon Dioxide 32 mmol/L (22-30); Chloride 105 mmol/L (98-107); Glucose 216 mg/dL (74-99); Non-African American GFR(CKD) >90 (>60 ml/min/1.73 sqM); Potassium 4.3 mmol/L (3.5-5.1); Sodium 136 mmol/L (137-145)
[2023-11-22 06:11] LABS: Glucose,Whole Blood 117 mg/dL (70-110)
--- NOTE | 2023-11-22 09:22 | P.PN ---
Progress Note - Text Progress Note Date: 11/22/23 Chief Complaint: Short of breath 73-year-old male patient with a known history of nonischemic cardiomyopathy, ventricular tachycardia with previous ablation, AICD placement, hyperlipidemia, former smoker, chronic obstructive pulmonary disease. Patient was in the hospital over a month ago. Admitted with COPD exacerbation, pill induced esophagitis, noted to have silent aspiration and a PEG tube was placed. Patient now presents with increasing shortness of breath. Bit altered mentation. Nonproductive cough. The last few days. At home about 2 L of nasal cannula. Symptoms became much worse this morning around 6 AM. Patient had to be placed on BiPAP. When I came to see this patient he was rather lethargic tired not really able to give much of a history. November 19: Patient still remains overflow in the ER room ED-1. More awake. On BiPAP. Spoke to the nurse to make sure the PEG tube feeding is started. Medications through the PEG tube. Patient does live with his and daughter. On IV cefepime, IV vancomycin. IV Solu-Medrol. Bronchodilators. Will send off nasopharyngeal MRSA swab. Short of breath. Tired. Additional information from cardiology notes: Cardiac catheterization February 2023: Stenting of proximal and mid LAD. 2D echo in April 2023: EF 30 to 35%. November 20: Breathing better. Up in a recliner. On nasal cannula 2 L. Patient daughter at the bedside. Discussed. She wishes patient to remain full code. Discussed with dietitian or Stephanie at the bedside. Plan to change to bolus feeding. Fluids continue to be restricted. For low sodium. November 21: 2D echo showed a left ventricular apical thrombus. Started on IV heparin. Breathing a bit better. Tolerating diet. Reclining in bed. Getting PEG tube bolus feeding Active Medications Albuterol/Ipratropium (Ipratropium-Albuterol 3 Ml Neb) 3 ml INHALATION RT-Q2H PRN PRN Reason: Shortness Of Breath Or Wheezing Last Admin: 11/20/23 08:45 Dose: 3 ml Amiodarone HCl (Amiodarone 200 Mg Tab) 200 mg PO DAILY@1000 JOSE MIGUEL Last Admin: 11/22/23 08:13 Dose: 200 mg Aspirin (Aspirin 81 Mg) 81 mg PO HS@2200 JOSE MIGUEL Last Admin: 11/21/23 20:27 Dose: 81 mg Atorvastatin Calcium (Atorvastatin 80 Mg Tab) 80 mg PO HS@2200 [facility] Last Admin: 11/21/23 20:27 Dose: 80 mg Clopidogrel Bisulfate (Clopidogrel 75 Mg Tab) 75 mg PO DAILY@1000 [facility] Last Admin: 11/22/23 08:13 Dose: 75 mg Ezetimibe (Ezetimibe 10 Mg Tab) 10 mg PO DAILY@1000 [facility] Last Admin: 11/22/23 08:13 Dose: 10 mg Heparin Sodium (Porcine) (Heparin Sodium 1,000 Un/Ml (10ml Vl)) 0 unit IV PER PROTOCOL PRN; Protocol PRN Reason: Low PTT Last Admin: 11/21/23 20:49 Dose: 3,700 unit Sodium Chloride (Saline 0.9%) 1,000 mls @ 50 mls/hr IV .Q20H [facility] Last Admin: 11/21/23 12:25 Dose: Not Given Heparin Sodium/Sodium Chloride (25,000 unit/ Sodium Chloride) 250 mls @ 8.94 m ls/hr IV .Q24H [facility]; Protocol Last Titration: 11/21/23 20:47 Dose: 15 units/kg/hr, 11.175 mls/hr Piperacillin Sod/Tazobactam (Sod 3.375 gm/ Sodium Chloride) 100 mls @ 25 mls/hr IVPB Q8HR [facility]; Protocol Last Admin: 11/22/23 08:12 Dose: 25 mls/hr Methylprednisolone Sodium Succinate (Methylprednisolone Sod Succi 40 Mg/Ml 1 Ml Vial) 40 mg IV Q8H [facility] Last Admin: 11/22/23 08:12 Dose: 40 mg Metoprolol Tartrate (Metoprolol Tartrate 12.5 Mg Tab) 12.5 mg PO BID@1000,2200 [facility] Last Admin: 11/22/23 08:13 Dose: 12.5 mg Mexiletine HCl (Mexiletine 200 Mg Cap) 200 mg PO TID@0600,1400,2200 [facility] Last Admin: 11/22/23 06:37 Dose: 200 mg Montelukast Sodium (Montelukast 10 Mg Tab) 10 mg PO DAILY@1000 [facility] Last Admin: 11/22/23 08:13 Dose: 10 mg Naloxone HCl (Naloxone 0.4 Mg/Ml 1 Ml Vial) 0.2 mg IV Q2M PRN PRN Reason: Opioid Reversal Levalbuterol 1.25 Mg Inhaled Solution Neb 1 puff INHALATION RT-Q6H PRN PRN Reason: Shortness Of Breath Levalbuterol Nebulized 1.25 Mg/3 Ml Nebule 1.25 mg INHALATION RT-QID [facility] Last Admin: 11/22/23 08:28 Dose: 1.25 mg Psyllium Hydrophilic Mucilloid (Psyllium Husk 100% 6 Gm Packet) 6 gm PO BID@1000,2200 [facility] Last Admin: 11/22/23 08:14 Dose: 6 gm Spironolactone (Spironolactone 25 Mg Tab) 25 mg PO DAILY@1000 [facility] Last Admin: 11/22/23 08:13 Dose: 25 mg Social history: Lives with his and daughter. Smoked for 20 years 4 to 5 cigarettes a day stopped at the age of 38. No alcohol. Physical examination: VITAL SIGNS: 97.6, 99, 18, 1 six 2 x 104, 92% on 2 L GENERAL: Reclining in chair, awake answering simple questions. Bruising on both extremities. EYES: Pupils equal. Conjunctiva dilma l. HEENT: External appearance of nose and ears normal, oral cavity grossly normal. NECK: JVD able to assess; masses not palpable. HEART: First and second heart sounds are normal; no edema. LUNGS: Respiratory rate increased; decreased breath sounds. ABDOMEN: Soft, nontender, liver spleen not palpable, no masses palpable. PEG t ube PSYCH: Able to answer simple questions MUSCULOSKELETAL:No Clubbing/cyanosis;muscles-grossly intact INVESTIGATIONS, reviewed in the clinical context: Limited 2D echocardiogram: Probable left ventricle apical thrombus. EF 30 to 35% Lumbar spine CT: Foraminal stenosis at L5-S1 and severe and L4-L5 November 21: White count 18.1 hemoglobin 10.5 platelets 241 potassium 4.3 creatinine 0.52 November 19: White count 26.2 hemoglobin 10.9 platelets 234 sodium 137 potassium 5 BUN 18 creatinine 0.53. Procalcitonin 1.11 November 18: White count 32.9 hemoglobin 14 platelets were 82 sodium 124 potassium 4.7 BUN 17 creatinine 0.45 Troponin I 0.012 ammonia less than 9 proBNP 1350 UA: Negative Influenza type A, B, RSV, COVID-19: Not detected ABG: pH 7.4 pCO2 58 pO2 62 EKG tracing personally reviewed by me-intraventricular conduction delay. Sinus rhythm. Chest x-ray film personally reviewed by me-cardiomegaly. Cannot rule out infiltrate Chest CTA: Negative for PE Assessment: -Acute asthma/COPD, in a [id number], causing respiratory failure: Slight improvement Xopenex. IV Solu-Medrol 40 mg every 8. -Acute metabolic/hypoxic encephalopathy on presentation: Much better -Left ventricular thrombus, new diagnosis IV heparin -IV heparin monitoring Follow PTT -Suspicious of bilateral basilar pneumonia suspect gram-negative organism: Better IV Zosyn -Acute on chronic hypoxic and hypercapnic respiratory failure: Better On BiPAP on admission. Now on 2 L nasal cannula - PEG tube placement on 10/15/2023. NPO by mouth Dysphagia with silent aspiration noted on modified barium swallow, PEG tube feeding continue as per dietitian -Left vertebral artery stenosis history -Essential hypertension Entresto, Lopressor, -Left thyroid nodule measuring 2.9 cm, was to be followed up in the outpatient setting from last admission -Nonischemic cardiomyopathy/chronic congestive heart failure, EF 30-35% from April 2023 Entresto. Lopressor. -CAD, with stent to LAD in February 2023 Aspirin. Lipitor. Plavix. - AICD-history of ventricular tachycardia status post ablation, status post -History of previous ventilatory dependent respiratory failure secondary to COPD exacerbations -History of brain hemorrhage while on blood thinners -Full code IV heparin. IV Zosyn. Prognosis guarded. Discussed with patient. Past Medical History Past Medical History: Asthma, COPD, Hyperlipidemia Additional Past Medical History / Comment(s): VTach, nonischemic cardiomyopathy, CHF, organized left ventricular apical clot, previous DVT ablation, asthma requiring intubation twice, BRAIN BLEED WHILE ON BLOOD THINNER RX 2009, cataracts bilaterally History of Any Multi-Drug Resistant Organisms: None Reported Past Surgical History: AICD, EPS, Pacemaker Additional Past Surgical History / Comment(s): 12/07/15 EPS [facility] [place] ablation. Other surgical hx: BRAIN SURGERY FOLLOWING BLEED. AICD/PACEMAKER, [facility]. generator change, Defibrilator testing Past Anesthesia/Blood Transfusion Reactions: No Reported Reaction Type of Cardiac Device: Permanent Pacemaker, AICD Device Placement Date:: 2005 implanted with gen change 2012 Past Psychological History: No Psychological Hx Reported Smoking Status: Never smoker Past Alcohol Use History: None Reported Past Drug Use History: None Reported
[2023-11-22 10:36] LABS: Glucose,Whole Blood 224 mg/dL (70-110)
[2023-11-22] MEDS: FUROSEMIDE 10 MG/ML 4 ML VIAL IV STA (11:17)
[2023-11-22 11:49] LABS: Glucose,Whole Blood 174 mg/dL (70-110)
--- NOTE | 2023-11-22 13:36 | P.PN ---
Subjective Progress Note Date: 11/22/23 Principal diagnosis: Acute metabolic encephalopathy with acute on chronic hypoxic respiratory failure and bibasilar pneumonia/aspiration pneumonia This is a very pleasant 73-year-old male patient with a known history of nonischemic cardiomyopathy, ventricular tachycardia with previous ablation, AICD placement, hyperlipidemia, former smoker, chronic obstructive pulmonary disease, intracranial hemorrhage while on blood thinners back in 2009 with subsequent surgery. He was recently here in the hospital after having difficulty swallowing after having a choking episode taking his pills. He did undergo EGD however no foreign body were noted in the esophagus. Continued to have ongoing issues with difficulty swallowing and subsequently had a PEG tube placed on August 14, 2024. He was subsequently discharged home. He was brought back into the hospital today after being found to have progressive weakness, shortness of breath and low oxygen readings per his daughter. He is on home oxygen typically only 1 or 2 L per nasal cannula. He was found to be in significant shortness of breath with bronchospasm and wheezing and difficult to arouse. He was placed on BiPAP 12/6 and 50% FiO2 to maintain O2 saturation in the low 90s.'s x-ray revealed no acute pulmonary process. CT scan of the brain revealed no acute intracranial abnormalities. There is evidence of bur holes. White count 32.9. Hemoglobin 14.0. Platelets 182. INR 0.9. Sodium 124. Potassium 4.7. Bicarb 32. BUN 17. Creatinine 0.45. Glucose 147. proBNP 1350. Troponin negative x 1. Influenza screen was negative. Arterial blood gases on 50% FiO2 revealed a PaO2 of 62, pCO2 58 and a pH of 7.40. He is seen today in consultation in the emergency department. Resting on a stretcher. He is continued on BiPAP. He is a bit more arousable. Denies any worsening shortness of breath. O2 saturations in the mid 90s. He is afebrile. Hemodynamically stable. Patient was reevaluated today on 11/20/2023, patient was reevaluated again while in the ER, mentation seems to be a bit better, patient remains hemodynamically stable, he is empirically on antibiotics for presumptive aspiration pneumonia as noted on CT angiogram of the chest, and there was no evidence of pulmonary embolism. WBC count remains elevated at 26.2 hemoglobin is 10.9. Sodium is up to 127 renal profile is normal bicarb is 32 procalcitonin level is 1.11 patient is now on 2 L nasal cannula, he was earlier on BiPAP, and his O2 sats is 95%. Blood pressure is 100/78. Patient was reevaluated today on 11/21/2023, patient is much more awake today, feels much better, he is on nasal cannula at 2 L/min and O2 sats is 94%. He is hemodynamically stable, daughter is at bedside, she had lots of questions about his pneumonia and suspicion for aspiration, and all her questions were answered. Continues to have leukocytosis WBC count of 19.2 hemoglobin 11.6. Patient is doing well overall. Better compared to how he presented Reevaluate today on 11/22/23,Patient is sitting at the bedside recliner, doing well, asymptomatic on 2 L nasal cannula O2 saturation 95%. Hemodynamically stable. However continues to have leukocytosis with WBC count of 18.1 hemoglobin 10.5 basic metabolic profile is normal INR is normal PTT is 46.4, procalcitonin level is 0.34 consistent with clinical impression of pneumonia. Objective - Vital Signs Vital signs: Vital Signs Temp 98.3 F 11/22/23 11:15 Pulse 100 11/22/23 12:05 Resp 17 11/22/23 11:15 BP 150/79 11/22/23 11:15 Pulse Ox 95 11/22/23 11:15 FiO2 35 11/20/23 12:07 Intake & Output 11/21/23 11/22/23 11/22/23 18:59 06:59 18:59 Intake Total 435.096 162.224 Output Total 700 550 675 Balance -700 -114.904 -512.776 Weight 74.5 kg 76.5 kg Intake: Intake, IV Titration 75.096 162.224 Amount Heparin Sod,Pork in 0.45% 75.096 162.224 NaCl 25,000 unit In 0.45 % NaCl 1 250ml.bag @ 12 UNITS/KG/HR 8.94 mls/hr IV .Q24H [facility] Rx#: [id number] Tube Feeding 360 Output: Urine 700 550 675 Other: Voiding Method Urinal Urinal Urinal # Voids 1 1 # Bowel Movements 1 1 - Exam GENERAL EXAM: Arousable, 73-year-old male, on nasal cannula, not in distress. HEAD: Normocephalic. EYES: Normal reaction of pupils, equal size. NOSE: Clear with pink turbinates. THROAT: No erythema or exudates. NECK: No masses, no JVD. CHEST: No chest wall deformity. LUNGS: Minich breath sounds and crackles at the bases no rhonchi no wheezes CVS: S1 and S2 normal with no audible murmur, regular rhythm. ABDOMEN: No hepatosplenomegaly, normal bowel sounds, no guarding or rigidity. SKIN: No rashes CENTRAL NERVOUS SYSTEM: Arousable, follows simple instructions but a bit confuse d. EXTREMITIES: No clubbing edema or cyanosis. - Labs CBC & Chem 7: 11/22/23 02:21 11/22/23 02:22 Labs: Abnormal Lab Results - Last 24 Hours (Table) 11/21/23 11/21/23 11/21/23 Range/Units 12:16 12:16 14:44 WBC 19.2 H (3.8-10.6) k/uL RBC 3.63 L (4.30-5.90) m/uL Hgb 11.6 L (13.0-17.5) gm/dL Hct 36.3 L (39.0-53.0) % RDW 16.0 H (11.5-15.5) % Neutrophils # 15.1 H (1.3-7.7) k/uL APTT 20.1 L (22.0-30.0) sec Sodium (137-145) mmol/L Carbon Dioxide (22-30) mmol/L BUN (9-20) mg/dL Creatinine 0.50 L (0.66-1.25) mg/dL Glucose (74-99) mg/dL POC Glucose (mg/dL) (70-110) mg/dL Osmolality (275-295) mOsm/kg Calcium (8.4-10.2) mg/dL Procalcitonin (0.02-0.09) ng/mL 11/21/23 11/21/23 11/21/23 Range/Units 16:47 18:13 20:05 WBC (3.8-10.6) k/uL RBC (4.30-5.90) m/uL Hgb (13.0-17.5) gm/dL Hct (39.0-53.0) % RDW (11.5-15.5) % Neutrophils # (1.3-7.7) k/uL APTT 32.5 H (22.0-30.0) sec Sodium (137-145) mmol/L Carbon Dioxide (22-30) mmol/L BUN (9-20) mg/dL Creatinine (0.66-1.25) mg/dL Glucose (74-99) mg/dL POC Glucose (mg/dL) 218 H 206 H (70-110) mg/dL Osmolality (275-295) mOsm/kg Calcium (8.4-10.2) mg/dL Procalcitonin (0.02-0.09) ng/mL 11/22/23 11/22/23 11/22/23 Range/Units 02:13 02:21 02:21 WBC 18.1 H (3.8-10.6) k/uL RBC 3.31 L (4.30-5.90) m/uL Hgb 10.5 L (13.0-17.5) gm/dL Hct 32.9 L (39.0-53.0) % RDW 15.8 H (11.5-15.5) % Neutrophils # 13.8 H (1.3-7.7) k/uL APTT 46.4 H (22.0-30.0) sec Sodium (137-145) mmol/L Carbon Dioxide (22-30) mmol/L BUN (9-20) mg/dL Creatinine (0.66-1.25) mg/dL Glucose (74-99) mg/dL POC Glucose (mg/dL) (70-110) mg/dL Osmolality (275-295) mOsm/kg Calcium (8.4-10.2) mg/dL Procalcitonin 0.34 H (0.02-0.09) ng/mL 11/22/23 11/22/23 11/22/23 Range/Units 02:22 06:11 10:34 WBC (3.8-10.6) k/uL RBC (4.30-5.90) m/uL Hgb (13.0-17.5) gm/dL Hct (39.0-53.0) % RDW (11.5-15.5) % Neutrophils # (1.3-7.7) k/uL APTT (22.0-30.0) sec Sodium 136 L (137-145) mmol/L Carbon Dioxide 32 H (22-30) mmol/L BUN 31 H (9-20) mg/dL Creatinine 0.52 L (0.66-1.25) mg/dL Glucose 216 H (74-99) mg/dL POC Glucose (mg/dL) 117 H 224 H (70-110) mg/dL Osmolality 306 H (275-295) mOsm/kg Calcium 8.1 L (8.4-10.2) mg/dL Procalcitonin (0.02-0.09) ng/mL 11/22/23 Range/Units 11:47 WBC (3.8-10.6) k/uL RBC (4.30-5.90) m/uL Hgb (13.0-17.5) gm/dL Hct (39.0-53.0) % RDW (11.5-15.5) % Neutrophils # (1.3-7.7) k/uL APTT (22.0-30.0) sec Sodium (137-145) mmol/L Carbon Dioxide (22-30) mmol/L BUN (9-20) mg/dL Creatinine (0.66-1.25) mg/dL Glucose (74-99) mg/dL POC Glucose (mg/dL) 174 H (70-110) mg/dL Osmolality (275-295) mOsm/kg Calcium (8.4-10.2) mg/dL Procalcitonin (0.02-0.09) ng/mL Microbiology - Last 24 Hours (Table) 11/19/23 12:13 Blood Culture - Preliminary Blood 11/19/23 12:41 Blood Culture - Preliminary Blood Assessment and Plan Assessment: Impression: Altered mental status and progressive weakness suspect secondary to hypoxemia Suspect bibasilar pneumonia, aspiration pneumonia unless proven otherwise. Acute on chronic hypoxemic respiratory failure secondary to COPDand secondary to bibasilar pneumonia as noted on CT angiogram of the chest Leukocytosis secondary to aspiration pneumonia Hypovolemic hyponatremia, improving Recent hospitalization for dysphagia with eventual PEG tube insertion on October 15, 2023 Nonischemic cardiomyopathy status post AICD placement initially in 2005 with generator change in 2012 History of intracranial hemorrhage requiring surgical intervention secondary to blood thinners in 2009 History of ventilatory dependent respiratory failure secondary to COPD/asthma exacerbation Non-smoker Recommendation: Continue Zosyn Continue bronchodilators Continue oxygen and titrate accordingly Continue steroids Continue Xopenex Procalcitonin was noted elevated Continue nutritional suppor'st/enteral feeding via PEG tube Will continue to follow Time with Patient: Less than 30
--- NOTE | 2023-11-22 14:58 | P.PN ---
Subjective Progress Note Date: 11/22/23 I am following-up with patient and patient feels he is doing better. No new neurological issues. Objective - Vital Signs Vital signs: Vital Signs Temp 98.3 F 11/22/23 11:15 Pulse 100 11/22/23 12:05 Resp 17 11/22/23 11:15 BP 150/79 11/22/23 11:15 Pulse Ox 95 11/22/23 11:15 FiO2 35 11/20/23 12:07 Intake & Output 11/21/23 11/22/23 11/22/23 18:59 06:59 18:59 Intake Total 435.096 162.224 Output Total 700 550 675 Balance -700 -114.904 -512.776 Weight 74.5 kg 76.5 kg Intake: Intake, IV Titration 75.096 162.224 Amount Heparin Sod,Pork in 0.45% 75.096 162.224 NaCl 25,000 unit In 0.45 % NaCl 1 250ml.bag @ 12 UNITS/KG/HR 8.94 mls/hr IV .Q24H [facility] Rx#: [id number] Tube Feeding 360 Output: Urine 700 550 675 Other: Voiding Method Urinal Urinal Urinal # Voids 1 1 # Bowel Movements 1 1 - Exam GENERAL: The patient is sitting in a recliner chair and is not in acute distress. NEUROLOGICAL: Higher mental function: The patient is awake, alert, oriented to self, place. Patient is following commands. No aphasia and no neglect. Cranial nerves: The pupils are round, equal and reactive to light. Visual cuevas are full to confrontation throughout. Extraocular movement is intact no nystagmus is noted. Facial sensation is normal to touch throughout. The facial strength is normal throughout. Hearing is moderately decreased bilaterally to hand rub. Tongue is midline and moved [id number] without any difficulty. Has hypophonia. Shoulder shrug is normal bilaterally. Motor: The strength is 5 over 5 throughout uppers. Has left foot drop. Left ankle plantarflexion: Has some effort related but has antigravity. Has slight decrease tone over the left foot . Normal bulk. Cerebellum: Normal finger to nose bilaterally. Sensation: Sensation is normal to touch throughout. Reflexes (right/left): 1+ Plantars are mute bilaterally. Some of the work-up during this hospital visit consisted of: Initial pulse ox is 91% liters on BiPAP currently it's improved and he is on 2 L of nasal cannula. His sodium is 124 and the repeated one is 127. CT of the head is reported as no acute intracranial process. Microangiopathic. Evidence of previous darshan hole. I personally reviewed this to the head and I agree there is no acute subacute ischemia. Patient seems to have left frontal encephalomalacia. Which was seen on prior CTs at least since January 2023. 2-D echo was reported as severely dilated left ventricular cavity. Ejection fraction of 15-20%. Apical thrombus appreciated in the left ventricle cavity. CT lumbar: reported as no evidence for spinal fracture. Severe degenerative changes of the spine with neural foraminal stenosis worse at L5-S1 severe left, L4-L5 severe right. - Labs CBC & Chem 7: 11/22/23 02:21 11/22/23 02:22 Labs: Abnormal Lab Results - Last 24 Hours (Table) 11/21/23 11/21/23 11/21/23 Range/Units 14:44 16:47 18:13 WBC (3.8-10.6) k/uL RBC (4.30-5.90) m/uL Hgb (13.0-17.5) gm/dL Hct (39.0-53.0) % RDW (11.5-15.5) % Neutrophils # (1.3-7.7) k/uL APTT 32.5 H (22.0-30.0) sec Sodium (137-145) mmol/L Carbon Dioxide (22-30) mmol/L BUN (9-20) mg/dL Creatinine 0.50 L (0.66-1.25) mg/dL Glucose (74-99) mg/dL POC Glucose (mg/dL) 218 H (70-110) mg/dL Osmolality (275-295) mOsm/kg Calcium (8.4-10.2) mg/dL Procalcitonin (0.02-0.09) ng/mL 11/21/23 11/22/23 11/22/23 Range/Units 20:05 02:13 02:21 WBC (3.8-10.6) k/uL RBC (4.30-5.90) m/uL Hgb (13.0-17.5) gm/dL Hct (39.0-53.0) % RDW (11.5-15.5) % Neutrophils # (1.3-7.7) k/uL APTT 46.4 H (22.0-30.0) sec Sodium (137-145) mmol/L Carbon Dioxide (22-30) mmol/L BUN (9-20) mg/dL Creatinine (0.66-1.25) mg/dL Glucose (74-99) mg/dL POC Glucose (mg/dL) 206 H (70-110) mg/dL Osmolality (275-295) mOsm/kg Calcium (8.4-10.2) mg/dL Procalcitonin 0.34 H (0.02-0.09) ng/mL 11/22/23 11/22/23 11/22/23 Range/Units 02:21 02:22 06:11 WBC 18.1 H (3.8-10.6) k/uL RBC 3.31 L (4.30-5.90) m/uL Hgb 10.5 L (13.0-17.5) gm/dL Hct 32.9 L (39.0-53.0) % RDW 15.8 H (11.5-15.5) % Neutrophils # 13.8 H (1.3-7.7) k/uL APTT (22.0-30.0) sec Sodium 136 L (137-145) mmol/L Carbon Dioxide 32 H (22-30) mmol/L BUN 31 H (9-20) mg/dL Creatinine 0.52 L (0.66-1.25) mg/dL Glucose 216 H (74-99) mg/dL POC Glucose (mg/dL) 117 H (70-110) mg/dL Osmolality 306 H (275-295) mOsm/kg Calcium 8.1 L (8.4-10.2) mg/dL Procalcitonin (0.02-0.09) ng/mL 11/22/23 11/22/23 Range/Units 10:34 11:47 WBC (3.8-10.6) k/uL RBC (4.30-5.90) m/uL Hgb (13.0-17.5) gm/dL Hct (39.0-53.0) % RDW (11.5-15.5) % Neutrophils # (1.3-7.7) k/uL APTT (22.0-30.0) sec Sodium (137-145) mmol/L Carbon Dioxide (22-30) mmol/L BUN (9-20) mg/dL Creatinine (0.66-1.25) mg/dL Glucose (74-99) mg/dL POC Glucose (mg/dL) 224 H 174 H (70-110) mg/dL Osmolality (275-295) mOsm/kg Calcium (8.4-10.2) mg/dL Procalcitonin (0.02-0.09) ng/mL Microbiology - Last 24 Hours (Table) 11/20/23 16:50 Nasal Screen MRSA/MSSA - Final Nasopharyngeal Swab 11/19/23 12:13 Blood Culture - Preliminary Blood 11/19/23 12:41 Blood Culture - Preliminary Blood Assessment and Plan Assessment: This is a 73-year-old gentleman who presented because of hypoxia with a pulse ox of 88% with confusion. He was also found to have hyponatremia as well. Altered mental status due to metabolic encephalopathy as well as hypoxic encephalopathy--mentation improved. CT of the head is negative for any acute or subacute stroke Hyponatremia as low as 124 --improving Apical thrombus on left ventricle Hypoxia---resolved Left foot drop going on for months with ongoing chronic lower back pain. Chronic low back pain and on CT lumbar has neural foraminal stenosis worse at L5-S1 severe left, L4-L5 severe right Dysphagia status post PEG tube History of brain bleed status post bur holes and has and supplements over the left frontal History of nonischemic cardiomyopathy as well as congestive heart farther status post AICD History of COPD Plan: CT lumbar has neural foraminal stenosis worse at L5-S1 severe left, L4-L5 severe right with chronic low back pain. I recommend patient to follow-up with Orthopedic team as outpatient. I recommend the EMG with nerve conduction study as an outpatient of the lowers to rule out any radiculopathy or neuropathy. Regarding his dysphagia and further workup of his left foot drop recommend the patient to follow-up with a neurologist as an outpatient. They will attempt to follow-up with Dr. Parks patient has an apical thrombus over the left ventricle and we'll defer the management to the cardiology team. We'll defer the rest of the medical measure the primary and other specialists The plan was discussed with the patient and his nurse. Will follow-up sporadically. Dr. Still will resume neurology service on 11/24/2023 A.M. Time with Patient: Less than 30
[2023-11-22 16:39] LABS: Glucose,Whole Blood 130 mg/dL (70-110)
[2023-11-22] MEDS: APIXABAN 2.5 MG TABLET PO SCH (20:02)
--- NOTE | 2023-11-22 21:04 | P.PN ---
Subjective Progress Note Date: 11/22/23 This is a 73-year-old male patient of Dr. Li with past medical history of V. tach status post AICD, ischemic cardiomyopathy, coronary artery disease, hyperlipidemia, left vertebral artery stenosis, COPD. We have been asked to evaluate the patient for heart failure. Patient seen today in the emergency center waiting for a bed on the cardiac stepdown unit. History is obtained from the patient's daughter as patient is currently on BiPAP. She states that she got up this morning was preparing to do his tube feeding and found that he was hypoxic. He was doing very well until yesterday morning at 6 AM. His pulse ox was 88%. She tried to increase his oxygen flow level but this did not help his pulse ox. She then called 911 patient was brought into the emergency center for further evaluation. EKG sinus rhythm with IVCD Chest x-ray: Left lower lobe retrocardiac infiltrate correlate for pneumonia. Subsegmental atelectasis or pneumonia is on the right base. CTA of the chest showed no evidence of pulmonary embolism. Moderate severe emphysema. Bibasilar pneumonia. Trace pleural effusion. WBC 26.2, hemoglobin 10.9, platelet count 234. INR 0.9. Sodium 127, potassium 5, CO2 32, chloride 94, BUN 18 creatinine 0.54. Blood sugar 135. Troponin negative x 1. proBNP 1350. Urinalysis negative. Influenza A, influenza B, RSV, COVID-19 detected. Home cardiac medications: Amiodarone 200 mg daily, aspirin 81 mg daily, atorvastatin 80 mg at bedtime, Plavix 75 mg daily, Zetia 10 mg daily, Lopressor 12.5 mg twice daily, Entresto 24 to 26 mg twice daily, Aldactone 25 mg daily. 02/11/2023 EP procedure: Cinefluoroscopy of the leads was performed, Atrial lead, active fix, in the right atrial appendage. No fractures or breaks. ICD lead shows evidence of deteriorating and may implant new ICD lead along with ICD generator change. Cardiac catheterization 02/26/2023 revealed critical disease involving the proximal and mid LAD with extremely calcified and eccentric lesion. Successful stenting of proximal and mid LAD. Echocardiogram performed in the office on 05/22/2023 revealed EF of 30 to 35%, trace aortic regurgitation, mildly dilated left atrium, ascending aorta is enlarged. Mild mitral rotation, mild tricuspid regurgitation. Normal pulmonary artery systolic pressure. Mild pulmonic regurgitation. 11/20 Patient states that his breathing is better today. He is off BiPAP currently on O2 at 2 L nasal cannula with pulse ox 94%. Blood pressure 129/67, heart rate in the 70s and 80s. Limited echocardiogram reveals severely dilated LV cavity. EF 15 to 20%. Apical thrombus in the LV cavity. No pericardial effusion. November 22, 2023 Patient is hemodynamically stable. He denies any chest pain chest pressure shortness of breath. He denies any palpitations lightheadedness or dizziness. Physical examination: Gen: This is a 73-year-old male in no acute respiratory distress. VS: reviewed HEENT: Head is atraumatic, normocephalic. Pupils equal, round. Sclerae is anicteric. LUNGS: Fair bilateral air exchange with scattered bilateral rhonchi. No intercostal retractions. HEART: Distant heart sounds, regular rate and rhythm. ABDOMEN: Soft No tenderness. EXTREMITIES: No pedal edema. No calf tenderness. NEUROLOGICAL: Patient is awake, alert. Assessment: Acute hypoxic respiratory failure secondary to acute COPD exacerbation Left ventricular apical thrombus, thrombus appears to be layered in the apex suggestive of chronic in nature History of ischemic cardiomyopathy without overt heart failure EF 20% Pneumonia History of ventricular tachycardia status post AICD Coronary artery disease with previous stent of the proximal and mid LAD Plan: Discontinue IV heparin drip. Start Eliquis 5 mg twice daily Continue aspirin, atorvastatin, Zetia, Continue Aldactone 25 mg daily. BP 130s to 150s mmHg systolic during current hospital stay since yesterday and today, will add increase metoprolol to 25 mg twice daily and add Losartan 12.5 mg daily Add Farxiga 5 mg Objective - Vital Signs Vital signs: Vital Signs Temp 98.3 F 11/22/23 11:15 Pulse 100 11/22/23 20:25 Resp 18 11/22/23 15:00 BP 141/77 11/22/23 15:00 Pulse Ox 95 11/22/23 15:00 FiO2 35 11/20/23 12:07 Intake & Output 11/22/23 11/22/23 11/23/23 06:59 18:59 06:59 Intake Total 435.096 162.224 0 Output Total 550 2225 Balance -114.904 -2062.776 0 Weight 76.5 kg Intake: Intake, IV Titration 75.096 162.224 Amount Heparin Sod,Pork in 0.45% 75.096 162.224 NaCl 25,000 unit In 0.45 % NaCl 1 250ml.bag @ 12 UNITS/KG/HR 8.94 mls/hr IV .Q24H [facility] Rx#: [id number] Oral 0 Tube Feeding 360 Output: Urine 550 2225 Other: Voiding Method Urinal Urinal # Voids 1 1 # Bowel Movements 1 - Labs CBC & Chem 7: 11/22/23 02:21 11/22/23 02:22 Labs: Abnormal Lab Results - Last 24 Hours (Table) 11/22/23 11/22/23 11/22/23 Range/Units 02:13 02:21 02:21 WBC 18.1 H (3.8-10.6) k/uL RBC 3.31 L (4.30-5.90) m/uL Hgb 10.5 L (13.0-17.5) gm/dL Hct 32.9 L (39.0-53.0) % RDW 15.8 H (11.5-15.5) % Neutrophils # 13.8 H (1.3-7.7) k/uL APTT 46.4 H (22.0-30.0) sec Sodium (137-145) mmol/L Carbon Dioxide (22-30) mmol/L BUN (9-20) mg/dL Creatinine (0.66-1.25) mg/dL Glucose (74-99) mg/dL POC Glucose (mg/dL) (70-110) mg/dL Osmolality (275-295) mOsm/kg Calcium (8.4-10.2) mg/dL Procalcitonin 0.34 H (0.02-0.09) ng/mL 11/22/23 11/22/23 11/22/23 Range/Units 02:22 06:11 10:34 WBC (3.8-10.6) k/uL RBC (4.30-5.90) m/uL Hgb (13.0-17.5) gm/dL Hct (39.0-53.0) % RDW (11.5-15.5) % Neutrophils # (1.3-7.7) k/uL APTT (22.0-30.0) sec Sodium 136 L (137-145) mmol/L Carbon Dioxide 32 H (22-30) mmol/L BUN 31 H (9-20) mg/dL Creatinine 0.52 L (0.66-1.25) mg/dL Glucose 216 H (74-99) mg/dL POC Glucose (mg/dL) 117 H 224 H (70-110) mg/dL Osmolality 306 H (275-295) mOsm/kg Calcium 8.1 L (8.4-10.2) mg/dL Procalcitonin (0.02-0.09) ng/mL 11/22/23 11/22/23 Range/Units 11:47 16:37 WBC (3.8-10.6) k/uL RBC (4.30-5.90) m/uL Hgb (13.0-17.5) gm/dL Hct (39.0-53.0) % RDW (11.5-15.5) % Neutrophils # (1.3-7.7) k/uL APTT (22.0-30.0) sec Sodium (137-145) mmol/L Carbon Dioxide (22-30) mmol/L BUN (9-20) mg/dL Creatinine (0.66-1.25) mg/dL Glucose (74-99) mg/dL POC Glucose (mg/dL) 174 H 130 H (70-110) mg/dL Osmolality (275-295) mOsm/kg Calcium (8.4-10.2) mg/dL Procalcitonin (0.02-0.09) ng/mL Microbiology - Last 24 Hours (Table) 11/20/23 16:50 Nasal Screen MRSA/MSSA - Final Nasopharyngeal Swab 11/19/23 12:13 Blood Culture - Preliminary Blood 11/19/23 12:41 Blood Culture - Preliminary Blood
[2023-11-22] MEDS: LOSARTAN 25 MG TAB PO SCH (22:50)
[2023-11-22] MEDS: DAPAGLIFLOZIN PROPANEDIOL 5 MG TABLET PO SCH (22:51)
[2023-11-23] LABS: Glucose,Whole Blood 163 mg/dL (70-110)
[2023-11-23 06:01] LABS: Glucose,Whole Blood 168 mg/dL (70-110)
[2023-11-23] MEDS: METOPROLOL TARTRATE 25 MG TAB PO SCH (09:07)
--- NOTE | 2023-11-23 09:33 | P.PN ---
Subjective Progress Note Date: 11/23/23 This is a 73-year-old male patient of Dr. Li with past medical history of V. tach status post AICD, ischemic cardiomyopathy, coronary artery disease, hyperlipidemia, left vertebral artery stenosis, COPD. We have been asked to evaluate the patient for heart failure. Patient seen today in the emergency center waiting for a bed on the cardiac stepdown unit. History is obtained from the patient's daughter as patient is currently on BiPAP. She states that she got up this morning was preparing to do his tube feeding and found that he was hypoxic. He was doing very well until yesterday morning at 6 AM. His pulse ox was 88%. She tried to increase his oxygen flow level but this did not help his pulse ox. She then called 911 patient was brought into the emergency center for further evaluation. EKG sinus rhythm with IVCD Chest x-ray: Left lower lobe retrocardiac infiltrate correlate for pneumonia. Subsegmental atelectasis or pneumonia is on the right base. CTA of the chest showed no evidence of pulmonary embolism. Moderate severe emphysema. Bibasilar pneumonia. Trace pleural effusion. WBC 26.2, hemoglobin 10.9, platelet count 234. INR 0.9. Sodium 127, potassium 5, CO2 32, chloride 94, BUN 18 creatinine 0.54. Blood sugar 135. Troponin negative x 1. proBNP 1350. Urinalysis negative. Influenza A, influenza B, RSV, COVID-19 detected. Home cardiac medications: Amiodarone 200 mg daily, aspirin 81 mg daily, atorvastatin 80 mg at bedtime, Plavix 75 mg daily, Zetia 10 mg daily, Lopressor 12.5 mg twice daily, Entresto 24 to 26 mg twice daily, Aldactone 25 mg daily. 02/11/2023 EP procedure: Cinefluoroscopy of the leads was performed, Atrial lead, active fix, in the right atrial appendage. No fractures or breaks. ICD lead shows evidence of deteriorating and may implant new ICD lead along with ICD generator change. Cardiac catheterization 02/26/2023 revealed critical disease involving the proximal and mid LAD with extremely calcified and eccentric lesion. Successful stenting of proximal and mid LAD. Echocardiogram performed in the office on 05/22/2023 revealed EF of 30 to 35%, trace aortic regurgitation, mildly dilated left atrium, ascending aorta is enlarged. Mild mitral rotation, mild tricuspid regurgitation. Normal pulmonary artery systolic pressure. Mild pulmonic regurgitation. 11/20 Patient states that his breathing is better today. He is off BiPAP currently on O2 at 2 L nasal cannula with pulse ox 94%. Blood pressure 129/67, heart rate in the 70s and 80s. Limited echocardiogram reveals severely dilated LV cavity. EF 15 to 20%. Apical thrombus in the LV cavity. No pericardial effusion. November 22, 2023 Patient is hemodynamically stable. He denies any chest pain chest pressure shortness of breath. He denies any palpitations lightheadedness or dizziness. November 23, 2023 Patient seen and examined at bedside this a.m. Blood pressure 130/70, heart rate 98 bpm, sinus rhythm on telemetry with baseline left bundle branch block. He has severe bruising of his bilateral upper extremities. Physical examination: Gen: This is a 73-year-old male in no acute respiratory distress. VS: reviewed HEENT: Head is atraumatic, normocephalic. Pupils equal, round. Sclerae is anicteric. LUNGS: Fair bilateral air exchange with scattered bilateral rhonchi. No intercostal retractions. HEART: Distant heart sounds, regular rate and rhythm. ABDOMEN: Soft No tenderness. EXTREMITIES: No pedal edema. No calf tenderness. Bruising in bilateral upper extremity NEUROLOGICAL: Patient is awake, alert. Assessment: Acute hypoxic respiratory failure secondary to acute COPD exacerbation Left ventricular apical thrombus, thrombus appears to be layered in the apex suggestive of chronic in nature History of ischemic cardiomyopathy without overt heart failure EF 20% Pneumonia History of ventricular tachycardia status post AICD Coronary artery disease with previous stent of the proximal and mid LAD Plan: Start Eliquis 5 mg twice daily yesterday. Continue aspirin, atorvastatin, Zetia, Continue Aldactone 25 mg daily. Systolic blood pressure 130s to 140s mmHg, increase metoprolol to 50 mg twice daily. I added losartan on this admission. I will change her to Entresto 24/26 mg twice daily today. Added Farxiga 5 mg daily on this admission. Continue these medications. Continue to monitor hemodynamics If patient is hemodynamically stable tomorrow, consider possibly discharging him. PT OT evaluation, out of bed, 6-minute walk test prior to discharge home O2 evaluation Objective - Vital Signs Vital signs: Vital Signs Temp 98.1 F 11/23/23 04:00 Pulse 104 H 11/23/23 08:59 Resp 18 11/23/23 04:00 BP 158/90 11/23/23 04:00 Pulse Ox 92 L 11/23/23 04:00 FiO2 35 11/20/23 12:07 Intake & Output 11/22/23 11/23/23 11/23/23 18:59 06:59 18:59 Intake Total 162.224 760 Output Total 2225 600 Balance -2062.776 160 Intake: Intake, IV Titration 162.224 400 Amount Heparin Sod,Pork in 0.45% 162.224 NaCl 25,000 unit In 0.45 % NaCl 1 250ml.bag @ 12 UNITS/KG/HR 8.94 mls/hr IV .Q24H [facility] Rx#: [id number] Piperacillin-Tazobactam 3 100 .375 gm In Sodium Chloride 0.9% 100 ml @ 25 mls/hr IVPB Q8HR [facility] Rx# :[id number] Sodium Chloride 0.9% 1, 300 000 ml @ 50 mls/hr IV . Q20H [facility] Rx#:[id number] Oral 0 Tube Feeding 360 Output: Urine 2225 600 Other: Voiding Method Urinal Urinal # Voids 1 # Bowel Movements 1 - Labs CBC & Chem 7: 11/22/23 02:21 11/22/23 02:22 Labs: Abnormal Lab Results - Last 24 Hours (Table) 11/22/23 11/22/23 11/22/23 Range/Units 02:21 02:22 10:34 POC Glucose (mg/dL) 224 H (70-110) mg/dL Osmolality 306 H (275-295) mOsm/kg Procalcitonin 0.34 H (0.02-0.09) ng/mL 11/22/23 11/22/23 11/22/23 Range/Units 11:47 16:37 23:58 POC Glucose (mg/dL) 174 H 130 H 163 H (70-110) mg/dL Osmolality (275-295) mOsm/kg Procalcitonin (0.02-0.09) ng/mL 11/23/23 Range/Units 05:59 POC Glucose (mg/dL) 168 H (70-110) mg/dL Osmolality (275-295) mOsm/kg Procalcitonin (0.02-0.09) ng/mL Microbiology - Last 24 Hours (Table) 11/19/23 12:13 Blood Culture - Preliminary Blood 11/19/23 12:41 Blood Culture - Preliminary Blood 11/20/23 16:50 Nasal Screen MRSA/MSSA - Final Nasopharyngeal Swab
[2023-11-23] MEDS: SACUBITRIL/VALSARTAN 24 MG-26 MG TABLET PO SCH ×2 (10:40→20:39)
[2023-11-23] MEDS: METOPROLOL TARTRATE 50 MG TAB PO SCH (10:40)
[2023-11-23 11:52] LABS: Glucose,Whole Blood 176 mg/dL (70-110)
[2023-11-23] MEDS: METOPROLOL TARTRATE 25 MG TAB PO STA (12:48)
--- NOTE | 2023-11-23 13:12 | P.PN ---
Subjective Progress Note Date: 11/23/23 Principal diagnosis: Acute metabolic encephalopathy with acute on chronic hypoxic respiratory failure and bibasilar pneumonia/aspiration pneumonia This is a very pleasant 73-year-old male patient with a known history of nonischemic cardiomyopathy, ventricular tachycardia with previous ablation, AICD placement, hyperlipidemia, former smoker, chronic obstructive pulmonary disease, intracranial hemorrhage while on blood thinners back in 2009 with subsequent surgery. He was recently here in the hospital after having difficulty swallowing after having a choking episode taking his pills. He did undergo EGD however no foreign body were noted in the esophagus. Continued to have ongoing issues with difficulty swallowing and subsequently had a PEG tube placed on August 14, 2024. He was subsequently discharged home. He was brought back into the hospital today after being found to have progressive weakness, shortness of breath and low oxygen readings per his daughter. He is on home oxygen typically only 1 or 2 L per nasal cannula. He was found to be in significant shortness of breath with bronchospasm and wheezing and difficult to arouse. He was placed on BiPAP 12/6 and 50% FiO2 to maintain O2 saturation in the low 90s.'s x-ray revealed no acute pulmonary process. CT scan of the brain revealed no acute intracranial abnormalities. There is evidence of bur holes. White count 32.9. Hemoglobin 14.0. Platelets 182. INR 0.9. Sodium 124. Potassium 4.7. Bicarb 32. BUN 17. Creatinine 0.45. Glucose 147. proBNP 1350. Troponin negative x 1. Influenza screen was negative. Arterial blood gases on 50% FiO2 revealed a PaO2 of 62, pCO2 58 and a pH of 7.40. He is seen today in consultation in the emergency department. Resting on a stretcher. He is continued on BiPAP. He is a bit more arousable. Denies any worsening shortness of breath. O2 saturations in the mid 90s. He is afebrile. Hemodynamically stable. Patient was reevaluated today on 11/20/2023, patient was reevaluated again while in the ER, mentation seems to be a bit better, patient remains hemodynamically stable, he is empirically on antibiotics for presumptive aspiration pneumonia as noted on CT angiogram of the chest, and there was no evidence of pulmonary embolism. WBC count remains elevated at 26.2 hemoglobin is 10.9. Sodium is up to 127 renal profile is normal bicarb is 32 procalcitonin level is 1.11 patient is now on 2 L nasal cannula, he was earlier on BiPAP, and his O2 sats is 95%. Blood pressure is 100/78. Patient was reevaluated today on 11/21/2023, patient is much more awake today, feels much better, he is on nasal cannula at 2 L/min and O2 sats is 94%. He is hemodynamically stable, daughter is at bedside, she had lots of questions about his pneumonia and suspicion for aspiration, and all her questions were answered. Continues to have leukocytosis WBC count of 19.2 hemoglobin 11.6. Patient is doing well overall. Better compared to how he presented Reevaluate today on 11/22/23,Patient is sitting at the bedside recliner, doing well, asymptomatic on 2 L nasal cannula O2 saturation 95%. Hemodynamically stable. However continues to have leukocytosis with WBC count of 18.1 hemoglobin 10.5 basic metabolic profile is normal INR is normal PTT is 46.4, procalcitonin level is 0.34 consistent with clinical impression of pneumonia. Reevaluate today on 11/23/2023, patient continues to do fairly well, not in any distress, remains on 2 L nasal cannula, not in any distress. Hardly any pulmonary symptoms no cough no wheezing no shortness of breath, patient is hemodynamically stable remains on treatment for presumptive aspiration pneumonia. Procalcitonin level on this admission was 1.11, repeat is down to 0.34 Objective - Vital Signs Vital signs: Vital Signs Temp 97.9 F 11/23/23 08:00 Pulse 92 11/23/23 11:31 Resp 18 11/23/23 08:00 BP 130/80 11/23/23 08:00 Pulse Ox 95 11/23/23 08:00 FiO2 35 11/20/23 12:07 Intake & Output 11/22/23 11/23/23 11/23/23 18:59 06:59 18:59 Intake Total 162.224 760 Output Total 2225 600 400 Balance -2062.776 160 -400 Intake: Intake, IV Titration 162.224 400 Amount Heparin Sod,Pork in 0.45% 162.224 NaCl 25,000 unit In 0.45 % NaCl 1 250ml.bag @ 12 UNITS/KG/HR 8.94 mls/hr IV .Q24H [facility] Rx#: [id number] Piperacillin-Tazobactam 3 100 .375 gm In Sodium Chloride 0.9% 100 ml @ 25 mls/hr IVPB Q8HR [facility] Rx# :[id number] Sodium Chloride 0.9% 1, 300 000 ml @ 50 mls/hr IV . Q20H [facility] Rx#:[id number] Oral 0 Tube Feeding 360 Output: Urine 2225 600 400 Other: Voiding Method Urinal Urinal # Voids 1 # Bowel Movements 1 - Exam GENERAL EXAM: Arousable, 73-year-old male, on nasal cannula, not in distress. HEAD: Normocephalic. EYES: Normal reaction of pupils, equal size. NOSE: Clear with pink turbinates. THROAT: No erythema or exudates. NECK: No masses, no JVD. CHEST: No chest wall deformity. LUNGS: Minich breath sounds and crackles at the bases no rhonchi no wheezes CVS: S1 and S2 normal with no audible murmur, regular rhythm. ABDOMEN: No hepatosplenomegaly, normal bowel sounds, no guarding or rigidity. SKIN: No rashes CENTRAL NERVOUS SYSTEM: Arousable, follows simple instructions but a bit confused. EXTREMITIES: No clubbing edema or cyanosis. - Labs CBC & Chem 7: 11/22/23 02:21 11/22/23 02:22 Labs: Abnormal Lab Results - Last 24 Hours (Table) 11/22/23 11/22/23 11/23/23 Range/Units 16:37 23:58 05:59 APTT (22.0-30.0) sec POC Glucose (mg/dL) 130 H 163 H 168 H (70-110) mg/dL 11/23/23 11/23/23 Range/Units 08:19 11:50 APTT 38.0 H (22.0-30.0) sec POC Glucose (mg/dL) 176 H (70-110) mg/dL Microbiology - Last 24 Hours (Table) 11/19/23 12:13 Blood Culture - Preliminary Blood 11/19/23 12:41 Blood Culture - Preliminary Blood 11/20/23 16:50 Nasal Screen MRSA/MSSA - Final Nasopharyngeal Swab Assessment and Plan Assessment: Impression: Altered mental status and progressive weakness suspect secondary to hypoxemia Suspect bibasilar pneumonia, aspiration pneumonia unless proven otherwise. Acute on chronic hypoxemic respiratory failure secondary to COPDand secondary to bibasilar pneumonia as noted on CT angiogram of the chest Leukocytosis secondary to aspiration pneumonia Hypovolemic hyponatremia, improving Recent hospitalization for dysphagia with eventual PEG tube insertion on October 15, 2023 Nonischemic cardiomyopathy status post AICD placement initially in 2005 with generator change in 2012 History of intracranial hemorrhage requiring surgical intervention secondary to blood thinners in 2009 History of ventilatory dependent respiratory failure secondary to COPD/asthma exacerbation Non-smoker Recommendation: Repeat chest x-ray in a.m. for follow-up on aspiration pneumonia Continue Zosyn Continue bronchodilators Continue oxygen and titrate accordingly Continue steroids Continue Xopenex Procalcitonin was noted elevated Continue nutritional suppor'st/enteral feeding via PEG tube Patient may eventually require placement again in ECF Will continue to follow Time with Patient: Less than 30
[2023-11-23 16:28] LABS: Glucose,Whole Blood 204 mg/dL (70-110)
[2023-11-23 17:11] LABS: ABG PH 7.34 (7.35-7.45); ABG PO2 240 mmHg (83-108); ABG TCO2 44 mmol/L (19-24); Allen Test Performed? Yes
[2023-11-23 17:15] LABS: ABG HCO3 42 mmol/L (21-25); ABG Oxygen Saturation 99.7 % (94-97); ABG PCO2 77 mmHg (35-45)
[2023-11-23] MEDS: propofoL 100 ML IV ONE (17:27)
--- NOTE | 2023-11-23 17:27 | CT ---
EXAMINATION TYPE: CT brain wo con CT DLP: 1300.4 mGycm, Automated exposure control for dose reduction was used. DATE OF EXAM: 11/23/2023 5:01 PM COMPARISON: CT head 11/19/2023. CLINICAL INDICATION:Male, 73 years old with history of AMS, hx of bleed, AMS TECHNIQUE: Brain: Axial CT images of the brain were obtained with coronal and sagittal reformats created and rev iewed. Contrast used: None. Oral contrast used: None. FINDINGS: Extra-axial spaces: No abnormal extra-axial fluid collections. Ventricular system: Ventricles appear dilated in proportion to the degree of cerebral atrophy. Cerebral parenchyma: No increased attenuation to suggest acute intraparenchymal hemorrhage. No loss of contreras/white matter distinction to suggest changes of acute ischemia. Moderate generalized brain a trophy. Scattered hypoattenuating areas are seen within the cerebral white matter, nonspecific but m ost often seen with chronic microvascular ischemic changes; moderate in degree. Confluent white guillermo er hypoattenuation with some parenchymal volume loss in the left frontal parietal region again seen, consistent with remote infarct/insult. Cerebellum: No acute abnormality. Mass effect: No evidence of mass effect or midline shift. Intracranial vasculature: Atherosclerotic calcifications of the larger arteries near the skull base. Soft tissues: No acute or concerning abnormality. Visualized orbits: Orbital contents appear grossly intact. There has likely been previous lens surg sola bilaterally. Calvarium/osseous structures: No evidence of an acute calvarial fracture. Bilateral round lucencies t hrough the frontal bones compatible with previously placed darshan holes. Paranasal sinuses and mastoid air cells: Mild scattered paranasal sinus mucosal thickening. Mastoid air cells are clear. MRI is more sensitive for detecting acute processes such as infarct, and may be considered if clinica lly warranted. IMPRESSION: Overall stable intracranial findings. No CT evidence of an acute intracranial abnormality.
[2023-11-23 17:31] LABS: Glucose,Whole Blood 158 mg/dL (70-110)
--- NOTE | 2023-11-23 17:52 | P.PN ---
Progress Note - Text Progress Note Date: 11/23/23 Chief Complaint: Short of breath 73-year-old male patient with a known history of nonischemic cardiomyopathy, ventricular tachycardia with previous ablation, AICD placement, hyperlipidemia, former smoker, chronic obstructive pulmonary disease. Patient was in the hospital over a month ago. Admitted with COPD exacerbation, pill induced esophagitis, noted to have silent aspiration and a PEG tube was placed. Patient now presents with increasing shortness of breath. Bit altered mentation. Nonproductive cough. The last few days. At home about 2 L of nasal cannula. Symptoms became much worse this morning around 6 AM. Patient had to be placed on BiPAP. When I came to see this patient he was rather lethargic tired not really able to give much of a history. November 19: Patient still remains overflow in the ER room ED-1. More awake. On BiPAP. Spoke to the nurse to make sure the PEG tube feeding is started. Medications through the PEG tube. Patient does live with his and daughter. On IV cefepime, IV vancomycin. IV Solu-Medrol. Bronchodilators. Will send off nasopharyngeal MRSA swab. Short of breath. Tired. Additional information from cardiology notes: Cardiac catheterization February 2023: Stenting of proximal and mid LAD. 2D echo in April 2023: EF 30 to 35%. November 20: Breathing better. Up in a recliner. On nasal cannula 2 L. Patient daughter at the bedside. Discussed. She wishes patient to remain full code. Discussed with dietitian or Stephanie at the bedside. Plan to change to bolus feeding. Fluids continue to be restricted. For low sodium. November 21: 2D echo showed a left ventricular apical thrombus. Started on IV heparin. Breathing a bit better. Tolerating diet. Reclining in bed. Getting PEG tube bolus feeding November 22: Saw the patient earlier today. Daughter at the bedside. Discussed. Dry mouth. Tired. Tolerating PEG tube feeding. Started on Eliquis today. Some spotting of blood on the sputum. Watch closely. I discussed CODE STATUS with the daughter day before. Wants the patient to be full code. Patient's prognosis is rather guarded. Active Medications Reviewed Social history: Lives with his and daughter. Smoked for 20 years 4 to 5 cigarettes a day stopped at the age of 38. No alcohol. Physical examination: VITAL SIGNS: 97.9, 96, 22, 130 x 80, 95% 2 L GENERAL: Reclining in bed, awake answering simple questions. Bruising on both extremities. EYES: Pupils equal. Conjunctiva dilam l. HEENT: External appearance of nose and ears normal, oral cavity-dry mucous membranes NECK: JVD able to assess; masses not palpable. HEART: First and second heart sounds are normal; no edema. LUNGS: Respiratory rate increased; decreased breath sounds. ABDOMEN: Soft, nontender, liver spleen not palpable, no masses palpable. PEG tube PSYCH: Able to answer simple questions MUSCULOSKELETAL:No Clubbing/cyanosis;muscles-grossly intact INVESTIGATIONS, reviewed in the clinical context: Limited 2D echocardiogram: Probable left ventricle apical thrombus. EF 30 to 35% Lumbar spine CT: Foraminal stenosis at L5-S1 and severe and L4-L5 November 21: White count 18.1 hemoglobin 10.5 platelets 241 potassium 4.3 creatinine 0.52 November 19: White count 26.2 hemoglobin 10.9 platelets 234 sodium 137 potassium 5 BUN 18 creatinine 0.53. Procalcitonin 1.11 November 18: White count 32.9 hemoglobin 14 platelets were 82 sodium 124 potassium 4.7 BUN 17 creatinine 0.45 Troponin I 0.012 ammonia less than 9 proBNP 1350 UA: Negative Influenza type A, B, RSV, COVID-19: Not detected ABG: pH 7.4 pCO2 58 pO2 62 EKG tracing personally reviewed by me-intraventricular conduction delay. Sinus rhythm. Chest x-ray film personally reviewed by me-cardiomegaly. Cannot rule out infiltrate Chest CTA: Negative for PE Assessment: -Acute asthma/COPD, in a [id number], causing respiratory failure: Slow to respond Xopenex. DuoNeb as needed IV Solu-Medrol 40 mg every 8. -Acute metabolic/hypoxic encephalopathy on presentation: Much better -Left ventricular thrombus, new diagnosis IV heparin. Eliquis started today -IV heparin monitoring-discontinued -Suspicious of bilateral basilar pneumonia suspect gram-negative organism: Better IV Zosyn -Acute on chronic hypoxic and hypercapnic respiratory failure: Better On BiPAP on admission. Now on 2 L nasal cannula - PEG tube placement on 10/15/2023. NPO by mouth Dysphagia with silent aspiration noted on modified barium swallow, PEG tube feeding as bolus. Being tolerated -Left vertebral artery stenosis history -Essential hypertension Entresto, Lopressor, -Left thyroid nodule measuring 2.9 cm, was to be followed up in the outpatient setting from last admission -Nonischemic cardiomyopathy/chronic congestive heart failure, EF 30-35% from April 2023 Entresto. Lopressor. -CAD, with stent to LAD in February 2023 Aspirin. Lipitor. Plavix. - AICD-history of ventricular tachycardia status post ablation, status post -History of previous ventilatory dependent respiratory failure secondary to COPD exacerbations -History of brain hemorrhage while on blood thinners -Full code IV heparin switched over to Eliquis.. IV Zosyn. Discussed with daughter. She is concerned about underlying malignancy. I did see that this can be worked up when patient is more stable. Prognosis guarded Past Medical History Past Medical History: Asthma, COPD, Hyperlipidemia Additional Past Medical History / Comment(s): VTach, nonischemic cardiomyopathy, CHF, organized left ventricular apical clot, previous DVT ablation, asthma requiring intubation twice, BRAIN BLEED WHILE ON BLOOD THINNER RX 2009, cataracts bilaterally History of Any Multi-Drug Resistant Organisms: None Reported Past Surgical History: AICD, EPS, Pacemaker Additional Past Surgical History / Comment(s): 12/07/15 EPS [facility] [place] ablation. Other surgical hx: BRAIN SURGERY FOLLOWING BLEED. AICD/PACEMAKER, [facility]. generator change, Defibrilator testing Past Anesthesia/Blood Transfusion Reactions: No Reported Reaction Type of Cardiac Device: Permanent Pacemaker, AICD Device Placement Date:: 2005 implanted with gen change 2012 Past Psychological History: No Psychological Hx Reported Smoking Status: Never smoker Past Alcohol Use History: None Reported Past Drug Use History: None Reported
[2023-11-23 19:09] LABS: Basophils % (A) 0 %; Eosinophils % (A) 0 %; HCT 36.6 % (39.0-53.0); HGB 11.2 gm/dL (13.0-17.5); Hypochromasia Marked; Lymphocytes # (A) 3.4 k/uL (1.0-4.8); Lymphocytes % (A) 20 %; MCH 31.1 pg (25.0-35.0); MCHC 30.7 g/dL (31.0-37.0); MCV 101.3 fL (80.0-100.0); Macrocytosis Slight; Mean Platelet Volume 7.9; Monocytes # (A) 0.8 k/uL (0-1.0); Monocytes % (A) 5 %; Neutrophils # (A) 12.8 k/uL (1.3-7.7); Neutrophils % (A) 74 %; Platelet Count 254 k/uL (150-450); RBC 3.61 m/uL (4.30-5.90); RDW 15.9 % (11.5-15.5); WBC 17.2 k/uL (3.8-10.6)
[2023-11-23 19:22] LABS: ALT 53 U/L (4-49); AST 26 U/L (17-59); African American GFR (CKD) >90 (>60 ml/min/1.73 sqM); Albumin 2.9 g/dL (3.5-5.0); Alkaline Phosphatase 62 U/L (38-126); Blood Urea Nitrogen 46 mg/dL (9-20); Calcium 8.9 mg/dL (8.4-10.2); Chloride 106 mmol/L (98-107); Glucose 123 mg/dL (74-99); Non-African American GFR(CKD) >90 (>60 ml/min/1.73 sqM); Sodium 146 mmol/L (137-145); Total Bilirubin 0.6 mg/dL (0.2-1.3); Total Protein 5.2 g/dL (6.3-8.2)
[2023-11-23 19:28] LABS: Anion Gap 4 mmol/L
[2023-11-23 20:23] LABS: Carbon Dioxide 36 mmol/L (22-30)
[2023-11-23] MEDS: APIXABAN 5 MG TAB PO SCH (20:39)
[2023-11-23 20:50] LABS: Glucose,Whole Blood 140 mg/dL (70-110)
[2023-11-23] MEDS: LEVALBUTEROL 1.25 MG INHALATION PRN (21:48)
[2023-11-24 00:30] LABS: Glucose,Whole Blood 184 mg/dL (70-110)
[2023-11-24 04:00] LABS: Anisocytosis Slight; HCT 33.7 % (39.0-53.0); HGB 10.6 gm/dL (13.0-17.5); Hypochromasia Moderate; MCH 31.4 pg (25.0-35.0); MCHC 31.6 g/dL (31.0-37.0); MCV 99.3 fL (80.0-100.0); Macrocytosis Slight; Platelet Count 217 k/uL (150-450); Poikilocytosis Slight; RBC 3.39 m/uL (4.30-5.90); RDW 16.2 % (11.5-15.5); WBC 19.5 k/uL (3.8-10.6)
[2023-11-24 04:21] LABS: African American GFR (CKD) >90 (>60 ml/min/1.73 sqM); Anion Gap 1 mmol/L; Blood Urea Nitrogen 50 mg/dL (9-20); Calcium 8.7 mg/dL (8.4-10.2); Carbon Dioxide 39 mmol/L (22-30); Chloride 107 mmol/L (98-107); Glucose 154 mg/dL (74-99); Non-African American GFR(CKD) >90 (>60 ml/min/1.73 sqM); Potassium 4.5 mmol/L (3.5-5.1); Sodium 147 mmol/L (137-145)
[2023-11-24 06:11] LABS: Glucose,Whole Blood 148 mg/dL (70-110)
--- NOTE | 2023-11-24 11:08 | P.PN ---
Progress Note - Text Progress Note Date: 11/24/23 Chief Complaint: Short of breath 73-year-old male patient with a known history of nonischemic cardiomyopathy, ventricular tachycardia with previous ablation, AICD placement, hyperlipidemia, former smoker, chronic obstructive pulmonary disease. Patient was in the hospital over a month ago. Admitted with COPD exacerbation, pill induced esophagitis, noted to have silent aspiration and a PEG tube was placed. Patient now presents with increasing shortness of breath. Bit altered mentation. Nonproductive cough. The last few days. At home about 2 L of nasal cannula. Symptoms became much worse this morning around 6 AM. Patient had to be placed on BiPAP. When I came to see this patient he was rather lethargic tired not really able to give much of a history. November 19: Patient still remains overflow in the ER room ED-1. More awake. On BiPAP. Spoke to the nurse to make sure the PEG tube feeding is started. Medications through the PEG tube. Patient does live with his and daughter. On IV cefepime, IV vancomycin. IV Solu-Medrol. Bronchodilators. Will send off nasopharyngeal MRSA swab. Short of breath. Tired. Additional information from cardiology notes: Cardiac catheterization February 2023: Stenting of proximal and mid LAD. 2D echo in April 2023: EF 30 to 35%. November 20: Breathing better. Up in a recliner. On nasal cannula 2 L. Patient daughter at the bedside. Discussed. She wishes patient to remain full code. Discussed with dietitian or Stephanie at the bedside. Plan to change to bolus feeding. Fluids continue to be restricted. For low sodium. November 21: 2D echo showed a left ventricular apical thrombus. Started on IV heparin. Breathing a bit better. Tolerating diet. Reclining in bed. Getting PEG tube bolus feeding November 22: Saw the patient earlier today. Daughter at the bedside. Discussed. Dry mouth. Tired. Tolerating PEG tube feeding. Started on Eliquis today. Some spotting of blood on the sputum. Watch closely. I discussed CODE STATUS with the daughter day before. Wants the patient to be full code. Patient's prognosis is rather guarded. November 23: Patient moved to the ICU yesterday. delirium from hypoxia, and hypercapnia. Doing better this morning. Tolerating tube feeding. On BiPAP 14/6/35%. Sinus rhythm. Tired. In bed. IV Zosyn Active Medications Albuterol/Ipratropium (Ipratropium-Albuterol 3 Ml Neb) 3 ml INHALATION RT-Q2H PRN PRN Reason: Shortness Of Breath Or Wheezing Last Admin: 11/20/23 08:45 Dose: 3 ml Amiodarone HCl (Amiodarone 200 Mg Tab) 200 mg PO DAILY@1000 [facility] Last Admin: 11/24/23 10:23 Dose: 200 mg Apixaban (Apixaban 5 Mg Tab) 5 mg PO BID [facility]; Protocol Last Admin: 11/24/23 08:26 Dose: 5 mg Aspirin (Aspirin 81 Mg) 81 mg PO HS@2200 [facility]IGUEL Last Admin: 11/23/23 20:39 Dose: 81 mg Atorvastatin Calcium (Atorvastatin 80 Mg Tab) 80 mg PO HS@2200 [facility] Last Admin: 11/23/23 20:39 Dose: 80 mg Dapagliflozin (Dapagliflozin Propanediol 5 Mg Tablet) 5 mg PO DAILY [facility] Last Admin: 11/24/23 08:26 Dose: 5 mg Ezetimibe (Ezetimibe 10 Mg Tab) 10 mg PO DAILY@1000 [facility] Last Admin: 11/24/23 10:23 Dose: 10 mg Sodium Chloride (Saline 0.9%) 1,000 mls @ 50 mls/hr IV .Q20H [facility] Last Admin: 11/24/23 00:20 Dose: 50 mls/hr Piperacillin Sod/Tazobactam (Sod 3.375 gm/ Sodium Chloride) 100 mls @ 25 mls/hr IVPB Q8HR [facility]; Protocol Last Admin: 11/24/23 08:25 Dose: 25 mls/hr Methylprednisolone Sodium Succinate (Methylprednisolone Sod Succi 40 Mg/Ml 1 Ml Vial) 40 mg IV Q8H [facility] Last Admin: 11/24/23 08:25 Dose: 40 mg Metoprolol Tartrate (Metoprolol Tartrate 50 Mg Tab) 50 mg PO BID [facility] Last Admin: 11/24/23 08:26 Dose: 50 mg Mexiletine HCl (Mexiletine 200 Mg Cap) 200 mg PO TID@0600,1400,2200 [facility] Last Admin: 11/24/23 06:11 Dose: 200 mg Montelukast Sodium (Montelukast 10 Mg Tab) 10 mg PO DAILY@1000 [facility] Last Admin: 11/24/23 10:23 Dose: 10 mg Naloxone HCl (Naloxone 0.4 Mg/Ml 1 Ml Vial) 0.2 mg IV Q2M PRN PRN Reason: Opioid Reversal Levalbuterol 1.25 Mg Inhaled Solution Neb 1 puff INHALATION RT-Q6H PRN PRN Reason: Shortness Of Breath Last Admin: 11/24/23 08:52 Dose: 1 puff Levalbuterol Nebulized 1.25 Mg/3 Ml Nebule 1.25 mg INHALATION RT-QID [facility] Last Admin: 11/24/23 08:54 Dose: Not Given Psyllium Hydrophilic Mucilloid (Psyllium Husk 100% 6 Gm Packet) 6 gm PO BID@1000,2200 [facility] Last Admin: 11/24/23 10:23 Dose: 6 gm Sacubitril/Valsartan (Sacubitril/Valsartan 24 Mg-26 Mg Tablet) 1 each PO HS [facility] Last Admin: 11/23/23 20:39 Dose: 1 each Spironolactone (Spironolactone 25 Mg Tab) 25 mg PO DAILY@1000 [facility] Last Admin: 11/24/23 10:23 Dose: 25 mg Social history: Lives with his and daughter. Smoked for 20 years 4 to 5 cigarettes a day stopped at the age of 38. No alcohol. Physical examination: VITAL SIGNS: Afebrile, 74, 24, 104 x 65, 95% on BiPAP 35% GENERAL: Reclining in bed, awake answering simple questions. Bruising on both extremities. EYES: Pupils equal. Conjunctiva dilma l. HEENT: External appearance of nose and ears normal, oral cavity-dry mucous membranes NECK: JVD able to assess; masses not palpable. HEART: First and second heart sounds are normal; no edema. LUNGS: Respiratory rate increased; decreased breath sounds. ABDOMEN: Soft, nontender, liver spleen not palpable, no masses palpable. PEG tube PSYCH: Able to answer simple questions MUSCULOSKELETAL:No Clubbing/cyanosis;muscles-grossly intact INVESTIGATIONS, reviewed in the clinical context: November 23: White count 19.5 hemoglobin 10.6 potassium 4.5 BUN 50 creatinine 0.61 Limited 2D echocardiogram: Probable left ventricle apical thrombus. EF 30 to 35% Lumbar spine CT: Foraminal stenosis at L5-S1 and severe and L4-L5 November 21: White count 18.1 hemoglobin 10.5 platelets 241 potassium 4.3 creatinine 0.52 November 19: White count 26.2 hemoglobin 10.9 platelets 234 sodium 137 potassium 5 BUN 18 creatinine 0.53. Procalcitonin 1.11 November 18: White count 32.9 hemoglobin 14 platelets were 82 sodium 124 potassium 4.7 BUN 17 creatinine 0.45 Troponin I 0.012 ammonia less than 9 proBNP 1350 UA: Negative Influenza type A, B, RSV, COVID-19: Not detected ABG: pH 7.4 pCO2 58 pO2 62 EKG tracing personally reviewed by me-intraventricular conduction delay. Sinus rhythm. Chest x-ray film personally reviewed by me-cardiomegaly. Cannot rule out infiltrate Chest CTA: Negative for PE Assessment: -Acute asthma/COPD, in a [id number], causing respiratory failure: Slow to respond Xopenex. DuoNeb as needed IV Solu-Medrol 40 mg every 8. -Acute metabolic/hypoxic encephalopathy on presentation: Much better -Left ventricular thrombus, new diagnosis Eliquis -IV heparin monitoring-discontinued -Suspicious of bilateral basilar pneumonia suspect gram-negative organism: Better IV Zosyn -Acute on chronic hypoxic and hypercapnic respiratory failure: Some worsening yesterday evening On BiPAP on admission. Patient is placed on BiPAP last night. - PEG tube placement on 10/15/2023. NPO by mouth Dysphagia with silent aspiration noted on modified barium swallow, PEG tube feeding as bolus. Being tolerated -Left vertebral artery stenosis history -Essential hypertension Entresto, Lopressor, -Left thyroid nodule measuring 2.9 cm, was to be followed up in the outpatient setting from last admission -Nonischemic cardiomyopathy/chronic congestive heart failure, EF 30-35% from April 2023 Entresto. Lopressor. -CAD, with stent to LAD in February 2023 Aspirin. Lipitor. Plavix. - AICD-history of ventricular tachycardia status post ablation, status post -History of previous ventilatory dependent respiratory failure secondary to COPD exacerbations -History of brain hemorrhage while on blood thinners -Full code On BiPAP. Continue antibiotic steroids bronchodilators. Prognosis remains guarded. Past Medical History Past Medical History: Asthma, COPD, Hyperlipidemia Additional Past Medical History / Comment(s): VTach, nonischemic cardiomyopathy, CHF, organized left ventricular apical clot, previous DVT ablation, asthma requiring intubation twice, BRAIN BLEED WHILE ON BLOOD THINNER RX 2009, cataracts bilaterally History of Any Multi-Drug Resistant Organisms: None Reported Past Surgical History: AICD, EPS, Pacemaker Additional Past Surgical History / Comment(s): 12/07/15 EPS wtih [place] ablation. Other surgical hx: BRAIN SURGERY FOLLOWING BLEED. AICD/PACEMAKER, [facility]. generator change, Defibrilator testing Past Anesthesia/Blood Transfusion Reactions: No Reported Reaction Type of Cardiac Device: Permanent Pacemaker, AICD Device Placement Date:: 2005 implanted with gen change 2012 Past Psychological History: No Psychological Hx Reported Smoking Status: Never smoker Past Alcohol Use History: None Reported Past Drug Use History: None Reported
--- NOTE | 2023-11-24 11:12 | XR ---
EXAMINATION TYPE: XR chest 1V portable DATE OF EXAM: 11/24/2023 COMPARISON: 11/12/2023 INDICATION: Pneumonia TECHNIQUE: Single frontal view of the chest is obtained. FINDINGS: The heart size is normal. The pulmonary vasculature is normal. Small retrocardiac infiltrate is present. Correlate for atelectasis or pneumonia. Some minimal atelec tasis likely at the right lung base. IMPRESSION: 1. Mild bibasilar infiltrates. Correlate for Atelectasis or pneumonia
--- NOTE | 2023-11-24 12:12 | P.PN ---
Subjective Progress Note Date: 11/24/23 This is a very pleasant 73-year-old male patient with a known history of nonischemic cardiomyopathy, ventricular tachycardia with previous ablation, AICD placement, hyperlipidemia, former smoker, chronic obstructive pulmonary disease, intracranial hemorrhage while on blood thinners back in 2009 with subsequent surgery. He was recently here in the hospital after having difficulty swallowing after having a choking episode taking his pills. He did undergo EGD however no foreign body were noted in the esophagus. Continued to have ongoing issues with difficulty swallowing and subsequently had a PEG tube placed on August 14, 2024. He was subsequently discharged home. He was brought back into the hospital today after being found to have progressive weakness, shortness of breath and low oxygen readings per his daughter. He is on home oxygen typically only 1 or 2 L per nasal cannula. He was found to be in significant shortness of breath with bronchospasm and wheezing and difficult to arouse. He was placed on BiPAP 12/6 and 50% FiO2 to maintain O2 saturation in the low 90s.'s x-ray revealed no acute pulmonary process. CT scan of the brain revealed no acute intracranial abnormalities. There is evidence of bur holes. White count 32.9. Hemoglobin 14.0. Platelets 182. INR 0.9. Sodium 124. Potassium 4.7. Bicarb 32. BUN 17. Creatinine 0.45. Glucose 147. proBNP 1350. Troponin negative x 1. Influenza screen was negative. Arterial blood gases on 50% FiO2 revealed a PaO2 of 62, pCO2 58 and a pH of 7.40. He is seen today in consultation in the emergency department. Resting on a stretcher. He is continued on BiPAP. He is a bit more arousable. Denies any worsening short ness of breath. O2 saturations in the mid 90s. He is afebrile. Hemodynamically stable. Patient was reevaluated today on 11/20/2023, patient was reevaluated again while in the ER, mentation seems to be a bit better, patient remains hemodynamically stable, he is empirically on antibiotics for presumptive aspiration pneumonia as noted on CT angiogram of the chest, and there was no evidence of pulmonary embolism. WBC count remains elevated at 26.2 hemoglobin is 10.9. Sodium is up to 127 renal profile is normal bicarb is 32 procalcitonin level is 1.11 patient is now on 2 L nasal cannula, he was earlier on BiPAP, and his O2 sats is 95%. Blood pressure is 100/78. Patient was reevaluated today on 11/21/2023, patient is much more awake today, feels much better, he is on nasal cannula at 2 L/min and O2 sats is 94%. He is hemodynamically stable, daughter is at bedside, she had lots of questions about his pneumonia and suspicion for aspiration, and all her questions were answered. Continues to have leukocytosis WBC count of 19.2 hemoglobin 11.6. Patient is doing well overall. Better compared to how he presented Reevaluate today on 11/22/23,Patient is sitting at the bedside recliner, doing well, asymptomatic on 2 L nasal cannula O2 saturation 95%. Hemodynamically stable. However continues to have leukocytosis with WBC count of 18.1 hemoglobin 10.5 basic metabolic profile is normal INR is normal PTT is 46.4, procalcitonin level is 0.34 consistent with clinical impression of pneumonia. Reevaluate today on 11/23/2023, patient continues to do fairly well, not in any distress, remains on 2 L nasal cannula, not in any distress. Hardly any pulmonary symptoms no cough no wheezing no shortness of breath, patient is hemodynamically stable remains on treatment for presumptive aspiration pneumonia. Procalcitonin level on this admission was 1.11, repeat is down to 0.34 The patient is seen today November 24, 2023 in follow-up in the intensive care unit. He had a rapid response team called on him last evening after being found with altered mental status. He was placed on BiPAP 14/6 and 100% FiO2 initially and his peak blood gases revealed a PaO2 of 240, pCO2 77 and a pH of 7.34. His FiO2 has been titrated down. Today he is awake and alert. Arousable. He remains on BiPAP. Chest x-ray reveals mild bibasilar infiltrates. Revealed stable intracranial findings. No evidence of acute intracranial abnormality. Cultures revealed no growth. White count 19.5. Hemoglobin 10.6. Platelets 217. Sodium 147. Potassium 4.5. Bicarb 39. BUN 50. Creatinine 0.61. Glucose 154. He remains on bronchodilators, steroids, Zosyn. Anticoagulated with Eliquis. Objective - Vital Signs Vital signs: Vital Signs Temp 98.3 F 11/24/23 08:00 Pulse 74 11/24/23 11:00 Resp 24 11/24/23 11:00 BP 104/65 11/24/23 11:00 Pulse Ox 95 11/24/23 11:00 FiO2 35 11/24/23 11:00 Intake & Output 11/23/23 11/24/23 11/24/23 18:59 06:59 18:59 Intake Total 200 700 400 Output Total 1300 640 240 Balance -1100 60 160 Intake: IV 700 300 Piperacillin-Tazobactam 3 100 100 .375 gm In Sodium Chloride 0.9% 100 ml @ 25 mls/hr IVPB Q8HR [facility] Rx# :[id number] Sodium Chloride 0.9% 1, 600 200 000 ml @ 50 mls/hr IV . Q20H [facility] Rx#:[id number] Intake, IV Titration 200 Amount Piperacillin-Tazobactam 3 100 .375 gm In Sodium Chloride 0.9% 100 ml @ 25 mls/hr IVPB Q8HR [facility] Rx# :[id number] Sodium Chloride 0.9% 1, 100 000 ml @ 50 mls/hr IV . Q20H [facility] Rx#:[id number] Other 100 Output: Urine 1300 640 240 Other: Voiding Method Urinal Indwelling Catheter Indwelling Catheter - Exam GENERAL EXAM: Arousable, pleasant 73-year-old male, on BiPAP 14/6 and 35% FiO2, not in any acute distress. HEAD: Normocephalic. EYES: Normal reaction of pupils, equal size. NOSE: Clear with pink turbinates. THROAT: No erythema or exudates. NECK: No masses, no JVD. CHEST: No chest wall deformity. LUNGS: Minich breath sounds and crackles at the bases no rhonchi no wheezes CVS: S1 and S2 normal with no audible murmur, regular rhythm. ABDOMEN: No hepatosplenomegaly, normal bowel sounds, no guarding or rigidity. SKIN: No rashes CENTRAL NERVOUS SYSTEM: Arousable, follows simple instructions but a bit confused. EXTREMITIES: No clubbing edema or cyanosis. - Labs CBC & Chem 7: 11/24/23 03:42 11/24/23 03:42 Labs: Abnormal Lab Results - Last 24 Hours (Table) 11/23/23 11/23/23 11/23/23 Range/Units 16:27 17:09 17:26 WBC (3.8-10.6) k/uL RBC (4.30-5.90) m/uL Hgb (13.0-17.5) gm/dL Hct (39.0-53.0) % MCV (80.0-100.0) fL MCHC (31.0-37.0) g/dL RDW (11.5-15.5) % Neutrophils # (1.3-7.7) k/uL ABG pH 7.34 L (7.35-7.45) ABG pCO2 77 H* (35-45) mmHg ABG pO2 240 H (83-108) mmHg ABG HCO3 42 H* (21-25) mmol/L ABG Total CO2 44 H (19-24) mmol/L ABG O2 Saturation 99.7 H (94-97) % Sodium (137-145) mmol/L Carbon Dioxide (22-30) mmol/L BUN (9-20) mg/dL Creatinine (0.66-1.25) mg/dL Glucose (74-99) mg/dL POC Glucose (mg/dL) 204 H 158 H (70-110) mg/dL ALT (4-49) U/L Total Protein (6.3-8.2) g/dL Albumin (3.5-5.0) g/dL 11/23/23 11/23/23 11/23/23 Range/Units 18:42 18:42 20:48 WBC 17.2 H (3.8-10.6) k/uL RBC 3.61 L (4.30-5.90) m/uL Hgb 11.2 L (13.0-17.5) gm/dL Hct 36.6 L (39.0-53.0) % MCV 101.3 H (80.0-100.0) fL MCHC 30.7 L (31.0-37.0) g/dL RDW 15.9 H (11.5-15.5) % Neutrophils # 12.8 H (1.3-7.7) k/uL ABG pH (7.35-7.45) ABG pCO2 (35-45) mmHg ABG pO2 (83-108) mmHg ABG HCO3 (21-25) mmol/L ABG Total CO2 (19-24) mmol/L ABG O2 Saturation (94-97) % Sodium 146 H (137-145) mmol/L Carbon Dioxide 36 H (22-30) mmol/L BUN 46 H (9-20) mg/dL Creatinine 0.56 L (0.66-1.25) mg/dL Glucose 123 H (74-99) mg/dL POC Glucose (mg/dL) 140 H (70-110) mg/dL ALT 53 H (4-49) U/L Total Protein 5.2 L (6.3-8.2) g/dL Albumin 2.9 L (3.5-5.0) g/dL 11/24/23 11/24/23 11/24/23 Range/Units 00:29 03:42 03:42 WBC 19.5 H (3.8-10.6) k/uL RBC 3.39 L (4.30-5.90) m/uL Hgb 10.6 L (13.0-17.5) gm/dL Hct 33.7 L (39.0-53.0) % MCV (80.0-100.0) fL MCHC (31.0-37.0) g/dL RDW 16.2 H (11.5-15.5) % Neutrophils # (1.3-7.7) k/uL ABG pH (7.35-7.45) ABG pCO2 (35-45) mmHg ABG pO2 (83-108) mmHg ABG HCO3 (21-25) mmol/L ABG Total CO2 (19-24) mmol/L ABG O2 Saturation (94-97) % Sodium 147 H (137-145) mmol/L Carbon Dioxide 39 H (22-30) mmol/L BUN 50 H (9-20) mg/dL Creatinine 0.61 L (0.66-1.25) mg/dL Glucose 154 H (74-99) mg/dL POC Glucose (mg/dL) 184 H (70-110) mg/dL ALT (4-49) U/L Total Protein (6.3-8.2) g/dL Albumin (3.5-5.0) g/dL 11/24/23 Range/Units 06:10 WBC (3.8-10.6) k/uL RBC (4.30-5.90) m/uL Hgb (13.0-17.5) gm/dL Hct (39.0-53.0) % MCV (80.0-100.0) fL MCHC (31.0-37.0) g/dL RDW (11.5-15.5) % Neutrophils # (1.3-7.7) k/uL ABG pH (7.35-7.45) ABG pCO2 (35-45) mmHg ABG pO2 (83-108) mmHg ABG HCO3 (21-25) mmol/L ABG Total CO2 (19-24) mmol/L ABG O2 Saturation (94-97) % Sodium (137-145) mmol/L Carbon Dioxide (22-30) mmol/L BUN (9-20) mg/dL Creatinine (0.66-1.25) mg/dL Glucose (74-99) mg/dL POC Glucose (mg/dL) 148 H (70-110) mg/dL ALT (4-49) U/L Total Protein (6.3-8.2) g/dL Albumin (3.5-5.0) g/dL Assessment and Plan Assessment: Altered mental status and progressive weakness suspect secondary to hypoxemia Acute on chronic hypoxemic respiratory failure secondary to COPDasthma exacerbation. Chest x-ray reveals no acute pulmonary process and viral screen negative Leukocytosis of unclear allergy, blood cultures pending, procalcitonin 0.34, continued on Zosyn Hyponatremia, suspect secondary to no oral intake due to n.p.o. status secondary to dysphagia Recent hospitalization for dysphagia with eventual PEG tube insertion on October 15, 2023 Nonischemic cardiomyopathy status post AICD placement initially in 2005 with generator change in 2012 History of intracranial hemorrhage requiring surgical intervention secondary to blood thinners in 2009 History of ventilatory dependent respiratory failure secondary to COPD/asthma exacerbation Non-smoker Plan: The patient was seen and evaluated CT scan of the brain, chest x-ray, ABGs, labs and medications reviewed Continue BiPAP support for now Titrate down the FiO2 as tolerated Continue the current treatment plan Continue PEG tube feedings We will continue to follow I have personally seen and examined the patient, performed the documentation and the assessment and plan as written. Number of minutes spent on the visit: 10.
[2023-11-24 12:23] LABS: Glucose,Whole Blood 143 mg/dL (70-110)
[2023-11-24 18:29] LABS: Glucose,Whole Blood 185 mg/dL (70-110)
--- NOTE | 2023-11-24 21:56 | PN ---
PROGRESS NOTE This is a 73-year-old gentleman with history of ventricular tachycardia, status post AICD, ischemic cardiomyopathy, coronary artery disease, dyslipidemia, and COPD, who is admitted to hospital with hypoxic respiratory failure, apical thrombus, and ischemic cardiomyopathy. OBJECTIVE: VITAL SIGNS: Initially, this morning had heart rate of 74 beats per minute, blood pressure respiratory rate 18. He is on BiPAP with an FiO2 of 35% with O2 saturation %. CHEST: Reveals diminished air entry at the bases. HEART: Reveals first and second heart sounds. No gallop. EXTREMITIES: Reveal bilateral pitting edema. Peripheral pulses are felt. LABORATORY DATA: Labs show that the potassium is 4.5, creatinine is 0.6, BUN is 50, hemoglobin is 10.6, and the white cell count is elevated. MEDICATIONS: The patient is currently on, 1. Amiodarone. 2. Eliquis. 3. Aspirin. 4. Lipitor. 5. Zetia. 6. . 7. Mexiletine. 8. Singulair. 9. Aldactone. ASSESSMENT AND PLAN: 1. Respiratory failure, primarily secondary to chronic obstructive pulmonary disease exacerbation. 2. Apical thrombus, on anticoagulant, nonsustained VT, probably related to hypoxia. PLAN: I will continue him on his current medication. MMODL / IJN: [id number] /
[2023-11-24 23:59] LABS: Glucose,Whole Blood 161 mg/dL (70-110)
[2023-11-25] MEDS: METOPROLOL TARTRATE 50 MG TAB PO SCH (02:52)
[2023-11-25 06:34] LABS: Glucose,Whole Blood 217 mg/dL (70-110)
--- NOTE | 2023-11-25 07:47 | XR ---
EXAMINATION TYPE: XR chest 1V portable DATE OF EXAM: 11/25/2023 HISTORY: Shortness of breath. COMPARISON: 11/24/2023 TECHNIQUE: Single view of the chest is submitted. FINDINGS: Demonstrated are scattered senescent parenchymal change. Stable left lower lobe infiltrate and/or atelectasis. Improving aeration right lower lobe. The heart is stable. Hilar and mediastinal structures are within normal limits. Degenerative changes are seen of the dorsal spine. IMPRESSION: 1. Stable left lower lobe infiltrate and/or atelectasis. Improving aeration right lower lobe.
[2023-11-25 08:20] LABS: Anisocytosis Slight; HCT 32.8 % (39.0-53.0); HGB 10.3 gm/dL (13.0-17.5); Hypochromasia Moderate; MCH 31.6 pg (25.0-35.0); MCHC 31.4 g/dL (31.0-37.0); MCV 100.5 fL (80.0-100.0); Macrocytosis Slight; Mean Platelet Volume 9.1; Platelet Count 234 k/uL (150-450); RBC 3.26 m/uL (4.30-5.90); RDW 16.5 % (11.5-15.5); WBC 20.2 k/uL (3.8-10.6)
[2023-11-25 08:34] LABS: African American GFR (CKD) >90 (>60 ml/min/1.73 sqM); Anion Gap 3 mmol/L; Blood Urea Nitrogen 56 mg/dL (9-20); Calcium 8.3 mg/dL (8.4-10.2); Carbon Dioxide 35 mmol/L (22-30); Chloride 114 mmol/L (98-107); Glucose 161 mg/dL (74-99); Non-African American GFR(CKD) >90 (>60 ml/min/1.73 sqM); Potassium 4.8 mmol/L (3.5-5.1); Sodium 152 mmol/L (137-145)
--- NOTE | 2023-11-25 11:42 | P.PN ---
Progress Note - Text Progress Note Date: 11/25/23 Chief Complaint: Short of breath 73-year-old male patient with a known history of nonischemic cardiomyopathy, ventricular tachycardia with previous ablation, AICD placement, hyperlipidemia, former smoker, chronic obstructive pulmonary disease. Patient was in the hospital over a month ago. Admitted with COPD exacerbation, pill induced esophagitis, noted to have silent aspiration and a PEG tube was placed. Patient now presents with increasing shortness of breath. Bit altered mentation. Nonproductive cough. The last few days. At home about 2 L of nasal cannula. Symptoms became much worse this morning around 6 AM. Patient had to be placed on BiPAP. When I came to see this patient he was rather lethargic tired not really able to give much of a history. November 19: Patient still remains overflow in the ER room ED-1. More awake. On BiPAP. Spoke to the nurse to make sure the PEG tube feeding is started. Medications through the PEG tube. Patient does live with his and daughter. On IV cefepime, IV vancomycin. IV Solu-Medrol. Bronchodilators. Will send off nasopharyngeal MRSA swab. Short of breath. Tired. Additional information from cardiology notes: Cardiac catheterization February 2023: Stenting of proximal and mid LAD. 2D echo in April 2023: EF 30 to 35%. November 20: Breathing better. Up in a recliner. On nasal cannula 2 L. Patient daughter at the bedside. Discussed. She wishes patient to remain full code. Discussed with dietitian or Stephanie at the bedside. Plan to change to bolus feeding. Fluids continue to be restricted. For low sodium. November 21: 2D echo showed a left ventricular apical thrombus. Started on IV heparin. Breathing a bit better. Tolerating diet. Reclining in bed. Getting PEG tube bolus feeding November 22: Saw the patient earlier today. Daughter at the bedside. Discussed. Dry mouth. Tired. Tolerating PEG tube feeding. Started on Eliquis today. Some spotting of blood on the sputum. Watch closely. I discussed CODE STATUS with the daughter day before. Wants the patient to be full code. Patient's prognosis is rather guarded. November 23: Patient moved to the ICU yesterday. delirium from hypoxia, and hypercapnia. Doing better this morning. Tolerating tube feeding. On BiPAP 14/6/35%. Sinus rhythm. Tired. In bed. IV Zosyn November 24: Patient remained on BiPAP overnight. Tired. Back on nasal cannula this morning. Tolerating tube feeding. IV Zosyn. She some shortness of breath. Hypernatremia. Stop normal saline. Changed to D5.4 560 cc an hour. Active Medications Albuterol/Ipratropium (Ipratropium-Albuterol 3 Ml Neb) 3 ml INHALATION RT-Q2H PRN PRN Reason: Shortness Of Breath Or Wheezing Last Admin: 11/20/23 08:45 Dose: 3 ml Amiodarone HCl (Amiodarone 200 Mg Tab) 200 mg PO DAILY@1000 [facility] Last Admin: 11/25/23 09:29 Dose: 200 mg Apixaban (Apixaban 5 Mg Tab) 5 mg PO BID [facility]; Protocol Last Admin: 11/25/23 09:29 Dose: 5 mg Aspirin (Aspirin 81 Mg) 81 mg PO HS@2200 [facility] Last Admin: 11/24/23 21:07 Dose: 81 mg Atorvastatin Calcium (Atorvastatin 80 Mg Tab) 80 mg PO HS@2200 [facility] Last Admin: 11/24/23 21:07 Dose: 80 mg Dapagliflozin (Dapagliflozin Propanediol 5 Mg Tablet) 5 mg PO DAILY [facility] Last Admin: 11/25/23 09:29 Dose: 5 mg Ezetimibe (Ezetimibe 10 Mg Tab) 10 mg PO DAILY@1000 [facility] Last Admin: 11/25/23 09:29 Dose: 10 mg Sodium Chloride (Saline 0.9%) 1,000 mls @ 50 mls/hr IV .Q20H [facility] Last Admin: 11/24/23 20:12 Dose: 50 mls/hr Piperacillin Sod/Tazobactam (Sod 3.375 gm/ Sodium Chloride) 100 mls @ 25 mls/hr IVPB Q8HR [facility]; Protocol Last Admin: 11/25/23 08:32 Dose: 25 mls/hr Methylprednisolone Sodium Succinate (Methylprednisolone Sod Succi 40 Mg/Ml 1 Ml Vial) 40 mg IV Q8H [facility] Last Admin: 11/25/23 08:32 Dose: 40 mg Metoprolol Tartrate (Metoprolol Tartrate 50 Mg Tab) 50 mg PO BID [facility] Last Admin: 11/25/23 09:32 Dose: 50 mg Mexiletine HCl (Mexiletine 200 Mg Cap) 200 mg PO TID@0600,1400,2200 [facility] Last Admin: 11/25/23 06:36 Dose: 200 mg Montelukast Sodium (Montelukast 10 Mg Tab) 10 mg PO DAILY@1000 [facility] Last Admin: 11/25/23 09:29 Dose: 10 mg Naloxone HCl (Naloxone 0.4 Mg/Ml 1 Ml Vial) 0.2 mg IV Q2M PRN PRN Reason: Opioid Reversal Levalbuterol 1.25 Mg Inhaled Solution Neb 1 puff INHALATION RT-Q6H PRN PRN Reason: Shortness Of Breath Last Admin: 11/24/23 08:52 Dose: 1 puff Levalbuterol Nebulized 1.25 Mg/3 Ml Nebule 1.25 mg INHALATION RT-QID [facility] Last Admin: 11/25/23 04:52 Dose: 1.25 mg Psyllium Hydrophilic Mucilloid (Psyllium Husk 100% 6 Gm Packet) 6 gm PO BID@1000,2200 [facility] Last Admin: 11/25/23 09:29 Dose: 6 gm Sacubitril/Valsartan (Sacubitril/Valsartan 24 Mg-26 Mg Tablet) 1 each PO HS [facility] Last Admin: 11/24/23 20:47 Dose: Not Given Spironolactone (Spironolactone 25 Mg Tab) 25 mg PO DAILY@1000 [facility] Last Admin: 11/25/23 09:32 Dose: 25 mg Social history: Lives with his and daughter. Smoked for 20 years 4 to 5 cigarettes a day stopped at the age of 38. No alcohol. Physical examination: VITAL SIGNS: 100.6, 101, 26, 152/93, 94% on 4 L GENERAL: Reclining in bed, awake answering simple questions. Bruising on both extremities. EYES: Pupils equal. Conjunctiva dilma l. HEENT: External appearance of nose and ears normal, oral cavity-dry mucous membranes NECK: JVD able to assess; masses not palpable. HEART: First and second heart sounds are normal; no edema. LUNGS: Respiratory rate increased; decreased breath sounds. ABDOMEN: Soft, nontender, liver spleen not palpable, no masses palpable. PEG tube PSYCH: Able to answer simple questions MUSCULOSKELETAL:No Clubbing/cyanosis;muscles-grossly intact INVESTIGATIONS, reviewed in the clinical context: November 24: White count 20.2 hemoglobin 10.3 sodium 152 creatinine 0.71 November 23: White count 19.5 hemoglobin 10.6 potassium 4.5 BUN 50 creatinine 0.61 Limited 2D echocardiogram: Probable left ventricle apical thrombus. EF 30 to 35% Lumbar spine CT: Foraminal stenosis at L5-S1 and severe and L4-L5 November 21: White count 18.1 hemoglobin 10.5 platelets 241 potassium 4.3 crea tinine 0.52 November 19: White count 26.2 hemoglobin 10.9 platelets 234 sodium 137 potassium 5 BUN 18 creatinine 0.53. Procalcitonin 1.11 November 18: White count 32.9 hemoglobin 14 platelets were 82 sodium 124 potassium 4.7 BUN 17 creatinine 0.45 Troponin I 0.012 ammonia less than 9 proBNP 1350 UA: Negative Influenza type A, B, RSV, COVID-19: Not detected ABG: pH 7.4 pCO2 58 pO2 62 EKG tracing personally reviewed by me-intraventricular conduction delay. Sinus rhythm. Chest x-ray film personally reviewed by me-cardiomegaly. Cannot rule out infiltrate Chest CTA: Negative for PE Assessment: -Acute asthma/COPD, in a [id number], causing respiratory failure: Slow to respond Xopenex. DuoNeb as needed IV Solu-Medrol 40 mg every 8. -Hypernatremia, free water deficit: New diagnosis Stop Aldactone. Change IV fluids to D5.4 560 cc an hour -Acute metabolic/hypoxic encephalopathy on presentation: Much better -Left ventricular thrombus, new diagnosis Eliquis -IV heparin monitoring-discontinued -Suspicious of bilateral basilar pneumonia suspect gram-negative organism: Better IV Zosyn -Acute on chronic hypoxic and hypercapnic respiratory failure: Some worsening yesterday evening On BiPAP on admission. Used BiPAP overnight - PEG tube placement on 10/15/2023. NPO by mouth Dysphagia with silent aspiration noted on modified barium swallow, PEG tube feeding as bolus. Being tolerated -Left vertebral artery stenosis history -Essential hypertension Entresto, Lopressor, -Left thyroid nodule measuring 2.9 cm, was to be followed up in the outpatient setting from last admission -Nonischemic cardiomyopathy/chronic congestive heart failure, EF 30-35% from April 2023 Entresto. Lopressor. -CAD, with stent to LAD in February 2023 Aspirin. Lipitor. Plavix. - AICD-history of ventricular tachycardia status post ablation, status post -History of previous ventilatory dependent respiratory failure secondary to COPD exacerbations -History of brain hemorrhage while on blood thinners -Full code Prognosis remains guarded. Due to high sodium change IV fluids to D5.45 at 60 cc an hour. Past Medical History Past Medical History: Asthma, COPD, Hyperlipidemia Additional Past Medical History / Comment(s): VTach, nonischemic cardiomyopathy, CHF, organized left ventricular apical clot, previous DVT ablation, asthma requiring intubation twice, BRAIN BLEED WHILE ON BLOOD THINNER RX 2009, cataracts bilaterally History of Any Multi-Drug Resistant Organisms: None Reported Past Surgical History: AICD, EPS, Pacemaker Additional Past Surgical History / Comment(s): 12/07/15 EPS wt VT ablation. Other surgical hx: BRAIN SURGERY FOLLOWING BLEED. AICD/PACEMAKER, [facility]. generator change, Defibrilator testing Past Anesthesia/Blood Transfusion Reactions: No Reported Reaction Type of Cardiac Device: Permanent Pacemaker, AICD Device Placement Date:: 2005 implanted with gen change 2012 Past Psychological History: No Psychological Hx Reported Smoking Status: Never smoker Past Alcohol Use History: None Reported Past Drug Use History: None Reported
--- NOTE | 2023-11-25 11:51 | P.PN ---
Subjective Progress Note Date: 11/25/23 This is a very pleasant 73-year-old male patient with a known history of nonischemic cardiomyopathy, ventricular tachycardia with previous ablation, AICD placement, hyperlipidemia, former smoker, chronic obstructive pulmonary disease, intracranial hemorrhage while on blood thinners back in 2009 with subsequent surgery. He was recently here in the hospital after having difficulty swallowing after having a choking episode taking his pills. He did undergo EGD however no foreign body were noted in the esophagus. Continued to have ongoing issues with difficulty swallowing and subsequently had a PEG tube placed on August 14, 2024. He was subsequently discharged home. He was brought back into the hospital today after being found to have progressive weakness, shortness of breath and low oxygen readings per his daughter. He is on home oxygen typically only 1 or 2 L per nasal cannula. He was found to be in significant shortness of breath with bronchospasm and wheezing and difficult to arouse. He was placed on BiPAP 12/6 and 50% FiO2 to maintain O2 saturation in the low 90s.'s x-ray revealed no acute pulmonary process. CT scan of the brain revealed no acute intracranial abnormalities. There is evidence of bur holes. White count 32.9. Hemoglobin 14.0. Platelets 182. INR 0.9. Sodium 124. Potassium 4.7. Bicarb 32. BUN 17. Creatinine 0.45. Glucose 147. proBNP 1350. Troponin negative x 1. Influenza screen was negative. Arterial blood gases on 50% FiO2 revealed a PaO2 of 62, pCO2 58 and a pH of 7.40. He is seen today in consultation in the emergency department. Resting on a stretcher. He is continued on BiPAP. He is a bit more arousable. Denies any worsening short ness of breath. O2 saturations in the mid 90s. He is afebrile. Hemodynamically stable. Patient was reevaluated today on 11/20/2023, patient was reevaluated again while in the ER, mentation seems to be a bit better, patient remains hemodynamically stable, he is empirically on antibiotics for presumptive aspiration pneumonia as noted on CT angiogram of the chest, and there was no evidence of pulmonary embolism. WBC count remains elevated at 26.2 hemoglobin is 10.9. Sodium is up to 127 renal profile is normal bicarb is 32 procalcitonin level is 1.11 patient is now on 2 L nasal cannula, he was earlier on BiPAP, and his O2 sats is 95%. Blood pressure is 100/78. Patient was reevaluated today on 11/21/2023, patient is much more awake today, feels much better, he is on nasal cannula at 2 L/min and O2 sats is 94%. He is hemodynamically stable, daughter is at bedside, she had lots of questions about his pneumonia and suspicion for aspiration, and all her questions were answered. Continues to have leukocytosis WBC count of 19.2 hemoglobin 11.6. Patient is doing well overall. Better compared to how he presented Reevaluate today on 11/22/23,Patient is sitting at the bedside recliner, doing well, asymptomatic on 2 L nasal cannula O2 saturation 95%. Hemodynamically stable. However continues to have leukocytosis with WBC count of 18.1 hemoglobin 10.5 basic metabolic profile is normal INR is normal PTT is 46.4, procalcitonin level is 0.34 consistent with clinical impression of pneumonia. Reevaluate today on 11/23/2023, patient continues to do fairly well, not in any distress, remains on 2 L nasal cannula, not in any distress. Hardly any pulmonary symptoms no cough no wheezing no shortness of breath, patient is hemodynamically stable remains on treatment for presumptive aspiration pneumonia. Procalcitonin level on this admission was 1.11, repeat is down to 0.34 The patient is seen today November 24, 2023 in follow-up in the intensive care unit. He had a rapid response team called on him last evening after being found with altered mental status. He was placed on BiPAP 14/6 and 100% FiO2 initially and his peak blood gases revealed a PaO2 of 240, pCO2 77 and a pH of 7.34. His FiO2 has been titrated down. Today he is awake and alert. Arousable. He remains on BiPAP. Chest x-ray reveals mild bibasilar infiltrates. Revealed stable intracranial findings. No evidence of acute intracranial abnormality. Cultures revealed no growth. White count 19.5. Hemoglobin 10.6. Platelets 217. Sodium 147. Potassium 4.5. Bicarb 39. BUN 50. Creatinine 0.61. Glucose 154. He remains on bronchodilators, steroids, Zosyn. Anticoagulated with Eliquis. The patient is seen today November 25, 2023 in follow-up in the intensive care unit. He is awake and alert in no acute distress. He is quite weak. He is maintaining O2 saturations in the upper 90s on 4 L/min per nasal cannula. He did utilize BiPAP last night 14/6 and 30% FiO2. He has normal staying at 50 MLS per hour. Chest x-ray continues to show stable left lower lobe infiltrate and/or atelectasis. Improved aeration of the right lower lobe. Blood cultures revealed no growth. White count 20.2. Hemoglobin 10.3. Platelets 234. Sodium 152. Potassium 4.8. Bicarb 35. BUN 56. Creatinine 0.71. Glucose 161. He remains on DuoNeb inhalations, Solu-Medrol, Zosyn. Anticoagulated with Eliquis. Objective - Vital Signs Vital signs: Vital Signs Temp 100.6 F H 11/25/23 08:00 Pulse 101 H 11/25/23 10:00 Resp 26 H 11/25/23 10:00 BP 152/93 11/25/23 10:00 Pulse Ox 94 L 11/25/23 10:00 FiO2 30 11/25/23 08:00 Intake & Output 11/24/23 11/25/23 11/25/23 18:59 06:59 18:59 Intake Total 1630 1870 760 Output Total 865 995 340 Balance 765 875 420 Intake: IV 750 700 300 Piperacillin-Tazobactam 3 200 100 100 .375 gm In Sodium Chloride 0.9% 100 ml @ 25 mls/hr IVPB Q8HR [facility] Rx# :[id number] Sodium Chloride 0.9% 1, 550 600 200 000 ml @ 50 mls/hr IV . Q20H [facility] Rx#:[id number] Tube Feeding 720 1080 360 Other 160 90 100 Output: Urine 865 995 340 Other: Voiding Method Indwelling Catheter Indwelling Catheter Indwelling Catheter # Bowel Movements 1 1 1 - Exam GENERAL EXAM: Awake, weak 73-year-old male, on 4 L/min per nasal cannula, not in any acute distress. HEAD: Normocephalic. EYES: Normal reaction of pupils, equal size. NOSE: Clear with pink turbinates. THROAT: No erythema or exudates. NECK: No masses, no JVD. CHEST: No chest wall deformity. LUNGS: Minich breath sounds and crackles at the bases no rhonchi no wheezes CVS: S1 and S2 normal with no audible murmur, regular rhythm. ABDOMEN: No hepatosplenomegaly, normal bowel sounds, no guarding or rigidity. SKIN: No rashes CENTRAL NERVOUS SYSTEM: Arousable, follows simple instructions but a bit confused. EXTREMITIES: No clubbing edema or cyanosis. - Labs CBC & Chem 7: 11/25/23 07:47 11/25/23 07:47 Labs: Abnormal Lab Results - Last 24 Hours (Table) 11/24/23 11/24/23 11/24/23 Range/Units 12:22 18:26 23:58 WBC (3.8-10.6) k/uL RBC (4.30-5.90) m/uL Hgb (13.0-17.5) gm/dL Hct (39.0-53.0) % MCV (80.0-100.0) fL RDW (11.5-15.5) % Sodium (137-145) mmol/L Chloride (98-107) mmol/L Carbon Dioxide (22-30) mmol/L BUN (9-20) mg/dL Glucose (74-99) mg/dL POC Glucose (mg/dL) 143 H 185 H 161 H (70-110) mg/dL Calcium (8.4-10.2) mg/dL 11/25/23 11/25/23 11/25/23 Range/Units 06:32 07:47 07:47 WBC 20.2 H (3.8-10.6) k/uL RBC 3.26 L (4.30-5.90) m/uL Hgb 10.3 L (13.0-17.5) gm/dL Hct 32.8 L (39.0-53.0) % MCV 100.5 H (80.0-100.0) fL RDW 16.5 H (11.5-15.5) % Sodium 152 H (137-145) mmol/L Chloride 114 H (98-107) mmol/L Carbon Dioxide 35 H (22-30) mmol/L BUN 56 H (9-20) mg/dL Glucose 161 H (74-99) mg/dL POC Glucose (mg/dL) 217 H (70-110) mg/dL Calcium 8.3 L (8.4-10.2) mg/dL Microbiology - Last 24 Hours (Table) 11/19/23 12:13 Blood Culture - Final Blood 11/19/23 12:41 Blood Culture - Final Blood Assessment and Plan Assessment: Altered mental status and progressive weakness suspect secondary to hypoxemia Acute on chronic hypoxemic respiratory failure secondary to COPDasthma exacerbation, mild basilar atelectasis Leukocytosis of unclear allergy, blood cultures pending, procalcitonin 0.34, continued on Zosyn Hyponatremia, suspect secondary to no oral intake due to n.p.o. status secondary to dysphagia Recent hospitalization for dysphagia with eventual PEG tube insertion on October 15, 2023 Nonischemic cardiomyopathy status post AICD placement initially in 2005 with generator change in 2012 History of intracranial hemorrhage requiring surgical intervention secondary to blood thinners in 2009 History of ventilatory dependent respiratory failure secondary to COPD/asthma exacerbation Non-smoker Poor overall functional performance based on the above-mentioned multiple comorbidities Plan: The patient was seen and evaluated Chest x-ray, labs and medications reviewed Currently on oxygen at 4 L/min per nasal cannula Titrate down the FiO2 as tolerated Continue the current treatment plan Continue PEG tube feedings We will continue to follow I have personally seen and examined the patient, performed the documentation and the assessment and plan as written. Number of minutes spent on the visit: 10.
[2023-11-25 11:54] LABS: Glucose,Whole Blood 219 mg/dL (70-110)
[2023-11-25] MEDS: DEXTROSE 5%-0.45% NACL 1,000 ML IV SCH (12:02)
[2023-11-25] MEDS ORDERED: DEXTROSE 50% SYRINGE 50 ML IVP PRN ×2 (12:10)
[2023-11-25] MEDS: ACETAMINOPHEN TAB 500 MG TAB PO PRN (12:34)
[2023-11-25] MEDS: INSULIN ASPART (NovoLOG) 100 UNIT/ML VIAL SQ SCH (12:35)
[2023-11-25 12:53] VITALS: BMI 23.5
--- NOTE | 2023-11-25 15:23 | PN ---
PROGRESS NOTE SUBJECTIVE: Surendra is a 73-year-old gentleman with ventricular tachycardia, status post AICD, ischemic cardiomyopathy, CAD, dyslipidemia, COPD, respiratory failure, apical thrombus, that is admitted to ICU because of respiratory failure. OBJECTIVE: GENERAL: This morning, he appears better, is more alert and awake, and not in respiratory distress. VITAL SIGNS: On exam, heart rate is 100 beats per minute, blood pressure is 140/78, and respiratory rate is 24. CHEST: Reveals occasional rhonchi with diminished air entry at the bases. HEART: Reveals first and second heart sounds. Systolic murmur at the apex. ABDOMEN: Soft. EXTREMITIES: Reveal mild edema bilaterally. MEDICATIONS: The patient is currently on: 1. Amiodarone 200 mg daily. 2. Eliquis 5 b.i.d. 3. Lipitor. 4. Zetia. 5. Lopressor 50 b.i.d. 6. Mexiletine along with Entresto and Aldactone. ASSESSMENT: 1. Respiratory failure. 2. Ischemic cardiomyopathy with apical thrombus. 3. Ventricular tachycardia. PLAN: The patient will continue the amiodarone and mexiletine that he is on and continue rest of the medications. MMODL / IJN: [id number] /
[2023-11-25 18:06] LABS: Glucose,Whole Blood 204 mg/dL (70-110)
[2023-11-25 21:51] LABS: Glucose,Whole Blood 258 mg/dL (70-110)
[2023-11-25] MEDS: NOREPINEPHRINE 4 MG in SODIUM CHLORIDE 0.9% 250 ML IV SCH (22:07)
[2023-11-26] MEDS: VASOPRESSIN 60 UNIT in SODIUM CHLORIDE 0.9% 150 ML IV SCH (00:09)
[2023-11-26 00:15] LABS: Glucose,Whole Blood 197 mg/dL (70-110)
[2023-11-26 04:17] LABS: Anisocytosis Slight; HCT 32.1 % (39.0-53.0); HGB 9.5 gm/dL (13.0-17.5); Hypochromasia Marked; MCH 31.2 pg (25.0-35.0); MCHC 29.8 g/dL (31.0-37.0); Macrocytosis Moderate; Platelet Count 245 k/uL (150-450); RBC 3.05 m/uL (4.30-5.90); RDW 16.7 % (11.5-15.5); WBC 38.7 k/uL (3.8-10.6)
[2023-11-26 04:30] LABS: African American GFR (CKD) 84 (>60 ml/min/1.73 sqM); Anion Gap 6 mmol/L; Blood Urea Nitrogen 89 mg/dL (9-20); Calcium 8.1 mg/dL (8.4-10.2); Carbon Dioxide 30 mmol/L (22-30); Chloride 119 mmol/L (98-107); Glucose 222 mg/dL (74-99); Non-African American GFR(CKD) 73 (>60 ml/min/1.73 sqM); Potassium 5.2 mmol/L (3.5-5.1); Sodium 155 mmol/L (137-145)
[2023-11-26 06:31] LABS: Glucose,Whole Blood 271 mg/dL (70-110)
--- NOTE | 2023-11-26 07:08 | XR ---
EXAMINATION TYPE: XR chest 1V portable DATE OF EXAM: 11/26/2023 COMPARISON: 11/25/2023, 10/10/2023 INDICATION: Left lower lobe infiltrate versus atelectasis TECHNIQUE: Single frontal view of the chest is obtained. FINDINGS: The heart size is normal. The pulmonary vasculature is normal. There is persistent oblique opacification through the left lower lung field. Atelectasis and pneumoni a remain within the differential. IMPRESSION: 1. Streaky opacity left lower lobe. Atelectasis is favored. Pneumonia is not excluded. Continued foll ow-up is recommended.
[2023-11-26 09:22] LABS: ABG Base Excess 8.1 mmol/L; ABG HCO3 33 mmol/L (21-25); ABG PCO2 58 mmHg (35-45); ABG PH 7.37 (7.35-7.45); ABG PO2 61 mmHg (83-108); ABG TCO2 35 mmol/L (19-24); Allen Test Performed? Yes
--- NOTE | 2023-11-26 09:38 | P.PN ---
Subjective Progress Note Date: 11/25/23 Patient initially seen by Dr. Gee Chatman. Please refer to his note for details. Patient is a 73-year-old male with altered mental status, likely due to metabolic encephalopathy. Patient has chronic lower back pain with left foot drop. Recommend EMG nerve conductions outpatient. Patient was seen for a follow-up. Patient is laying in the bed, has BiPAP on. Patient is currently on Zosyn and IV fluids. Per nursing report, patient answers appropriately. He is slightly confused at times. Some of the work-up during this hospital visit consisted of: Initial pulse ox is 91% liters on BiPAP currently it's improved and he is on 2 L of nasal cannula. His sodium is 124 and the repeated one is 127. CT of the head is reported as no acute intracranial process. Microangiopathic. Evidence of previous darshan hole. I personally reviewed this to the head and I agree there is no acute subacute ischemia. Patient seems to have left frontal encephalomalacia. Which was seen on prior CTs at least since January 2023. 2-D echo was reported as severely dilated left ventricular cavity. Ejection fraction of 15-20%. Apical thrombus appreciated in the left ventricle cavity. CT lumbar: reported as no evidence for spinal fracture. Severe degenerative changes of the spine with neural foraminal stenosis worse at L5-S1 severe left, L4-L5 severe right. Objective - Vital Signs Vital signs: Vital Signs Temp 101.3 F H 11/25/23 16:00 Pulse 114 H 11/25/23 18:00 Resp 24 11/25/23 18:00 BP 116/79 11/25/23 18:00 Pulse Ox 95 11/25/23 18:00 FiO2 30 11/25/23 18:00 Intake & Output 11/24/23 11/25/23 11/25/23 18:59 06:59 18:59 Intake Total 1630 1870 2170 Output Total 865 995 850 Balance 780 733 8359 Weight 76.5 kg Intake: IV 750 700 450 Piperacillin-Tazobactam 3 200 100 200 .375 gm In Sodium Chloride 0.9% 100 ml @ 25 mls/hr IVPB Q8HR [facility] Rx# :[id number] Sodium Chloride 0.9% 1, 550 600 250 000 ml @ 50 mls/hr IV . Q20H [facility]IG[facility] Rx#:[id number] Intake, IV Titration 420 Amount Dextrose 5%-0.45% NaCl 1, 420 000 ml @ 60 mls/hr IV . [id number] [facility] Rx#:[id number] Tube Feeding 720 1080 1140 Other 160 90 160 Output: Urine 865 995 850 Other: Voiding Method Indwelling Catheter Indwelling Catheter Indwelling Catheter # Bowel Movements 1 1 1 - Exam Patient is alert and awake, he has slightly slow mentation. Patient is f ollowing directions very well. Patient has BiPAP on, therefore speech functions not able to be assessed. On cranial examination, his pupils are equal, round and reacting. Extraocular muscles are intact. Patient's strength is proximal upper extremities 2 with myoclonic jerks. 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 Patient has a lot of bruises. - Labs CBC & Chem 7: 11/26/23 03:44 11/26/23 03:44 Labs: Abnormal Lab Results - Last 24 Hours (Table) 11/24/23 11/24/23 11/25/23 Range/Units 18:26 23:58 06:32 WBC (3.8-10.6) k/uL RBC (4.30-5.90) m/uL Hgb (13.0-17.5) gm/dL Hct (39.0-53.0) % MCV (80.0-100.0) fL RDW (11.5-15.5) % Sodium (137-145) mmol/L Chloride (98-107) mmol/L Carbon Dioxide (22-30) mmol/L BUN (9-20) mg/dL Glucose (74-99) mg/dL POC Glucose (mg/dL) 185 H 161 H 217 H (70-110) mg/dL Calcium (8.4-10.2) mg/dL 11/25/23 11/25/23 11/25/23 Range/Units 07:47 07:47 11:52 WBC 20.2 H (3.8-10.6) k/uL RBC 3.26 L (4.30-5.90) m/uL Hgb 10.3 L (13.0-17.5) gm/dL Hct 32.8 L (39.0-53.0) % MCV 100.5 H (80.0-100.0) fL RDW 16.5 H (11.5-15.5) % Sodium 152 H (137-145) mmol/L Chloride 114 H (98-107) mmol/L Carbon Dioxide 35 H (22-30) mmol/L BUN 56 H (9-20) mg/dL Glucose 161 H (74-99) mg/dL POC Glucose (mg/dL) 219 H (70-110) mg/dL Calcium 8.3 L (8.4-10.2) mg/dL 11/25/23 Range/Units 18:04 WBC (3.8-10.6) k/uL RBC (4.30-5.90) m/uL Hgb (13.0-17.5) gm/dL Hct (39.0-53.0) % MCV (80.0-100.0) fL RDW (11.5-15.5) % Sodium (137-145) mmol/L Chloride (98-107) mmol/L Carbon Dioxide (22-30) mmol/L BUN (9-20) mg/dL Glucose (74-99) mg/dL POC Glucose (mg/dL) 204 H (70-110) mg/dL Calcium (8.4-10.2) mg/dL Microbiology - Last 24 Hours (Table) 11/19/23 12:13 Blood Culture - Final Blood 11/19/23 12:41 Blood Culture - Final Blood Assessment and Plan Assessment: This is a 73-year-old gentleman who presented because of hypoxia with a pulse ox of 88% with confusion. He was also found to have hyponatremia as well. Altered mental status due to metabolic encephalopathy as well as hypoxic encephalopathy--mentation improved. CT of the head is negative for any acute or subacute stroke Hyponatremia as low as 124, but now patient is hypernatremic with sodium 152. New onset spiking temperature, with leukocytosis, possible sepsis. Apical thrombus on left ventricle, on Eliquis Left foot drop going on for months with ongoing chronic lower back pain. Chronic low back pain and on CT lumbar has neural foraminal stenosis worse at L5-S1 severe left, L4-L5 severe right Dysphagia status post PEG tube placement last admission on 10/15/2023 History of subdural hematoma status post bur hole craniotomy in 2009. It was related to blood thinners. History of nonischemic cardiomyopathy as well as congestive heart farther status post AICD History of COPD Macrocytic anemia Plan: Patient's mentation is improving. He is still slightly encephalopathic, intermittently gets confused as per nursing report as well. Patient initially had hyponatremia but now hypernatremic. Will defer to IM/critical care. Patient has macrocytic anemia. We will check B12, MMA, B6 and folate. His last B12 was low 227 on 07/13/2023. Patient was not on any B12 replacement at home. Hemoglobin A1c 6.0. CT lumbar has neural foraminal stenosis worse at L5-S1 severe left, L4-L5 severe right with chronic low back pain. May follow-up with Orthopedic team as outpatient. EMG with nerve conduction study as an outpatient of the lowers to rule out any radiculopathy or neuropathy. Patient strength is improving in the lower extremities. Regarding his dysphagia and further workup of his left foot drop recommend the patient to follow-up with a neurologist as an outpatient. They will attempt to follow-up with Dr. Parks patient has an apical thrombus over the left ventricle, and patient started on Eliquis 5 mg twice daily. We'll defer the rest of the medical measure the primary and other specialists
[2023-11-26] MEDS: METOPROLOL TARTRATE 25 MG TAB PO SCH (10:04)
--- NOTE | 2023-11-26 11:12 | P.PN ---
Subjective Progress Note Date: 11/26/23 This is a very pleasant 73-year-old male patient with a known history of nonischemic cardiomyopathy, ventricular tachycardia with previous ablation, AICD placement, hyperlipidemia, former smoker, chronic obstructive pulmonary disease, intracranial hemorrhage while on blood thinners back in 2009 with subsequent surgery. He was recently here in the hospital after having difficulty swallowing after having a choking episode taking his pills. He did undergo EGD however no foreign body were noted in the esophagus. Continued to have ongoing issues with difficulty swallowing and subsequently had a PEG tube placed on August 14, 2024. He was subsequently discharged home. He was brought back into the hospital today after being found to have progressive weakness, shortness of breath and low oxygen readings per his daughter. He is on home oxygen typically only 1 or 2 L per nasal cannula. He was found to be in significant shortness of breath with bronchospasm and wheezing and difficult to arouse. He was placed on BiPAP 12/6 and 50% FiO2 to maintain O2 saturation in the low 90s.'s x-ray revealed no acute pulmonary process. CT scan of the brain revealed no acute intracranial abnormalities. There is evidence of bur holes. White count 32.9. Hemoglobin 14.0. Platelets 182. INR 0.9. Sodium 124. Potassium 4.7. Bicarb 32. BUN 17. Creatinine 0.45. Glucose 147. proBNP 1350. Troponin negative x 1. Influenza screen was negative. Arterial blood gases on 50% FiO2 revealed a PaO2 of 62, pCO2 58 and a pH of 7.40. He is seen today in consultation in the emergency department. Resting on a stretcher. He is continued on BiPAP. He is a bit more arousable. Denies any worsening short ness of breath. O2 saturations in the mid 90s. He is afebrile. Hemodynamically stable. Patient was reevaluated today on 11/20/2023, patient was reevaluated again while in the ER, mentation seems to be a bit better, patient remains hemodynamically stable, he is empirically on antibiotics for presumptive aspiration pneumonia as noted on CT angiogram of the chest, and there was no evidence of pulmonary embolism. WBC count remains elevated at 26.2 hemoglobin is 10.9. Sodium is up to 127 renal profile is normal bicarb is 32 procalcitonin level is 1.11 patient is now on 2 L nasal cannula, he was earlier on BiPAP, and his O2 sats is 95%. Blood pressure is 100/78. Patient was reevaluated today on 11/21/2023, patient is much more awake today, feels much better, he is on nasal cannula at 2 L/min and O2 sats is 94%. He is hemodynamically stable, daughter is at bedside, she had lots of questions about his pneumonia and suspicion for aspiration, and all her questions were answered. Continues to have leukocytosis WBC count of 19.2 hemoglobin 11.6. Patient is doing well overall. Better compared to how he presented Reevaluate today on 11/22/23,Patient is sitting at the bedside recliner, doing well, asymptomatic on 2 L nasal cannula O2 saturation 95%. Hemodynamically stable. However continues to have leukocytosis with WBC count of 18.1 hemoglobin 10.5 basic metabolic profile is normal INR is normal PTT is 46.4, procalcitonin level is 0.34 consistent with clinical impression of pneumonia. Reevaluate today on 11/23/2023, patient continues to do fairly well, not in any distress, remains on 2 L nasal cannula, not in any distress. Hardly any pulmonary symptoms no cough no wheezing no shortness of breath, patient is hemodynamically stable remains on treatment for presumptive aspiration pneumonia. Procalcitonin level on this admission was 1.11, repeat is down to 0.34 The patient is seen today November 24, 2023 in follow-up in the intensive care unit. He had a rapid response team called on him last evening after being found with altered mental status. He was placed on BiPAP 14/6 and 100% FiO2 initially and his peak blood gases revealed a PaO2 of 240, pCO2 77 and a pH of 7.34. His FiO2 has been titrated down. Today he is awake and alert. Arousable. He remains on BiPAP. Chest x-ray reveals mild bibasilar infiltrates. Revealed stable intracranial findings. No evidence of acute intracranial abnormality. Cultures revealed no growth. White count 19.5. Hemoglobin 10.6. Platelets 217. Sodium 147. Potassium 4.5. Bicarb 39. BUN 50. Creatinine 0.61. Glucose 154. He remains on bronchodilators, steroids, Zosyn. Anticoagulated with Eliquis. The patient is seen today November 25, 2023 in follow-up in the intensive care unit. He is awake and alert in no acute distress. He is quite weak. He is maintaining O2 saturations in the upper 90s on 4 L/min per nasal cannula. He did utilize BiPAP last night 14/6 and 30% FiO2. He has normal staying at 50 MLS per hour. Chest x-ray continues to show stable left lower lobe infiltrate and/or atelectasis. Improved aeration of the right lower lobe. Blood cultures revealed no growth. White count 20.2. Hemoglobin 10.3. Platelets 234. Sodium 152. Potassium 4.8. Bicarb 35. BUN 56. Creatinine 0.71. Glucose 161. He remains on DuoNeb inhalations, Solu-Medrol, Zosyn. Anticoagulated with Eliquis. The patient is seen today November 26, 2023 in follow-up in the intensive care unit. He had developed hypotension throughout the night. He has had worsening oxygenation as well. He is currently on BiPAP 14/6 and 30% FiO2. Morning blood gases revealed a PaO2 of 61, pCO2 58 and pH of 7.37. He is requiring nore pinephrine at 0.11 mcg/kg/min or 8.6 mcg/min. Vasopressin at 0.03 units/min. D5.45 at 60 MLS per hour. Chest x-ray revealed streaky atelectasis of the left lower lobe. No significant change from previous. White count 38.7. Hemoglobin 9.5. Platelets 245. Sodium 155. Potassium 5.2. Bicarb 30. BUN 89. Creatinine 1.02. Glucose 222. He did have a temperature of 101.0. His procalcitonin was 0.34. He has remained on Zosyn. Repeat blood and urine cultures are pending. He remains on bronchodilators and steroids. Continued on Eliquis. Receiving Jevity 1.5 boluses for a total volume of 1560 MLS per day for nutritional support. Objective - Vital Signs Vital signs: Vital Signs Temp 101.0 F H 11/26/23 08:00 Pulse 97 11/26/23 10:15 Resp 19 11/26/23 10:15 BP 94/57 11/26/23 10:15 Pulse Ox 98 11/26/23 10:15 FiO2 50 11/26/23 10:00 Intake & Output 11/25/23 11/26/23 11/26/23 18:59 06:59 18:59 Intake Total 2170 2360.215 1104.171 Output Total 850 620 250 Balance 1320 1740.215 854.171 Weight 76.5 kg Intake: IV 450 100 280 Dextrose 5%-0.45% NaCl 1, 180 000 ml @ 60 mls/hr IV . [id number] JOSE MIGUEL Rx#:[id number] Piperacillin-Tazobactam 3 200 100 100 .375 gm In Sodium Chloride 0.9% 100 ml @ 25 mls/hr IVPB Q8HR JOSE MIGUEL Rx# :[id number] Sodium Chloride 0.9% 1, 250 000 ml @ 50 mls/hr IV . Q20H JOSE MIGUEL Rx#:[id number] Intake, IV Titration 420 1030.215 209.171 Amount Dextrose 5%-0.45% NaCl 1, 420 720 60 000 ml @ 60 mls/hr IV . [id number] JOSE MIGUEL Rx#:[id number] Norepinephrine 4 mg In 310.215 149.171 Sodium Chloride 0.9% 250 ml @ 0.03 MCG/KG/MIN 8. 744 mls/hr IV .Q24H JOSE MIGUEL Rx#:[id number] Oral 615 Tube Feeding 1140 1140 Other 160 90 Output: Urine 850 620 250 Other: Voiding Method Indwelling Catheter Indwelling Catheter Indwelling Catheter # Bowel Movements 1 - Exam GENERAL EXAM: Awake, weak, frail 73-year-old male, on BiPAP 14/6 and 30% FiO2. HEAD: Normocephalic. EYES: Normal reaction of pupils, equal size. NOSE: Clear with pink turbinates. THROAT: No erythema or exudates. NECK: No masses, no JVD. CHEST: No chest wall deformity. LUNGS: Minich breath sounds and crackles at the left base, no rhonchi no wheezes CVS: S1 and S2 normal with no audible murmur, regular rhythm. ABDOMEN: No hepatosplenomegaly, normal bowel sounds, no guarding or rigidity. SKIN: No rashes CENTRAL NERVOUS SYSTEM: Arousable, follows simple instructions but a bit confused. EXTREMITIES: No clubbing edema or cyanosis. - Labs CBC & Chem 7: 11/26/23 03:44 11/26/23 03:44 Labs: Abnormal Lab Results - Last 24 Hours (Table) 11/25/23 11/25/23 11/25/23 Range/Units 11:52 18:04 21:50 WBC (3.8-10.6) k/uL RBC (4.30-5.90) m/uL Hgb (13.0-17.5) gm/dL Hct (39.0-53.0) % MCV (80.0-100.0) fL MCHC (31.0-37.0) g/dL RDW (11.5-15.5) % ABG pCO2 (35-45) mmHg ABG pO2 (83-108) mmHg ABG HCO3 (21-25) mmol/L ABG Total CO2 (19-24) mmol/L ABG O2 Saturation (94-97) % Sodium (137-145) mmol/L Potassium (3.5-5.1) mmol/L Chloride (98-107) mmol/L BUN (9-20) mg/dL Glucose (74-99) mg/dL POC Glucose (mg/dL) 219 H 204 H 258 H (70-110) mg/dL Calcium (8.4-10.2) mg/dL 11/26/23 11/26/23 11/26/23 Range/Units 00:14 03:44 03:44 WBC 38.7 H (3.8-10.6) k/uL RBC 3.05 L (4.30-5.90) m/uL Hgb 9.5 L (13.0-17.5) gm/dL Hct 32.1 L (39.0-53.0) % MCV 105.0 H (80.0-100.0) fL MCHC 29.8 L (31.0-37.0) g/dL RDW 16.7 H (11.5-15.5) % ABG pCO2 (35-45) mmHg ABG pO2 (83-108) mmHg ABG HCO3 (21-25) mmol/L ABG Total CO2 (19-24) mmol/L ABG O2 Saturation (94-97) % Sodium 155 H (137-145) mmol/L Potassium 5.2 H (3.5-5.1) mmol/L Chloride 119 H (98-107) mmol/L BUN 89 H (9-20) mg/dL Glucose 222 H (74-99) mg/dL POC Glucose (mg/dL) 197 H (70-110) mg/dL Calcium 8.1 L (8.4-10.2) mg/dL 11/26/23 11/26/23 Range/Units 06:29 09:21 WBC (3.8-10.6) k/uL RBC (4.30-5.90) m/uL Hgb (13.0-17.5) gm/dL Hct (39.0-53.0) % MCV (80.0-100.0) fL MCHC (31.0-37.0) g/dL RDW (11.5-15.5) % ABG pCO2 58 H (35-45) mmHg ABG pO2 61 L (83-108) mmHg ABG HCO3 33 H (21-25) mmol/L ABG Total CO2 35 H (19-24) mmol/L ABG O2 Saturation 90.0 L (94-97) % Sodium (137-145) mmol/L Potassium (3.5-5.1) mmol/L Chloride (98-107) mmol/L BUN (9-20) mg/dL Glucose (74-99) mg/dL POC Glucose (mg/dL) 271 H (70-110) mg/dL Calcium (8.4-10.2) mg/dL Assessment and Plan Assessment: Altered mental status and progressive weakness suspect secondary to hypotension Hypotension suspect secondary to sepsis, repeat blood and urine cultures are pending Acute on chronic hypoxemic respiratory failure secondary to COPDasthma exacerbation, mild basilar atelectasis Leukocytosis of unclear allergy, blood cultures pending, procalcitonin 0.34, continued on Zosyn Hyponatremia, suspect secondary to no oral intake due to n.p.o. status secondary to dysphagia Recent hospitalization for dysphagia with eventual PEG tube insertion on October 15, 2023 Nonischemic cardiomyopathy status post AICD placement initially in 2005 with generator change in 2012 History of intracranial hemorrhage requiring surgical intervention secondary to blood thinners in 2009 History of ventilatory dependent respiratory failure secondary to COPD/asthma exacerbation Non-smoker Poor overall functional performance based on the above-mentioned multiple comorbidities Plan: The patient was seen and evaluated Chest x-ray, ABGs, labs and medications reviewed Currently on BiPAP, increase FiO2 to 50% Currently requiring norepinephrine and vasopressin Continue PEG tube feedings Prognosis is guarded We will continue to follow I have personally seen and examined the patient, performed the documentation and the assessment and plan as written. Number of minutes spent on the visit: 10.
[2023-11-26 11:42] LABS: Glucose,Whole Blood 271 mg/dL (70-110)
--- NOTE | 2023-11-26 14:05 | PN ---
PROGRESS NOTE SUBJECTIVE: Willian is a 73-year-old gentleman, who is admitted to ICU because of respiratory insufficiency, has ventricular tachycardia, status post AICD, ischemic cardiomyopathy, apical thrombus, CAD, dyslipidemia, and COPD. He became hypotensive through last night and this morning, and some of his medications are on hold. He is less responsive this morning and he is on a nonrebreather. OBJECTIVE: VITAL SIGNS: Heart rate is 97 beats per minute, blood pressure is 94/57, respiratory rate 18, O2 saturation is 98%. CHEST: Reveals diminished air entry at the bases. HEART: Reveals first and second heart sounds. No gallop. EXTREMITIES: Reveal bilateral pitting edema and pulses are diminished. LABORATORY DATA: Labs show that his sodium level had gone up to 155, potassium is 5.2, BUN is 89, creatinine is 1. He seems intravascularly volume depleted. He is currently on 60 mL of D5 half normal saline. I will increase it to 100 mL. ASSESSMENT AND PLAN: 1. Ventricular tachycardia. 2. Apical thrombus. 3. Chronic systolic heart failure. 4. Ischemic cardiomyopathy. 5. Renal insufficiency. 6. New onset hypotension. PLAN: The patient is on Levophed, on antibiotics for possible sepsis. I am going to stop the Entresto and cut back on the dose of Lasix as the patient seems intravascularly volume depleted and increase the dose of D5 half normal saline. MMODL / IJN: [id number] /
--- NOTE | 2023-11-26 15:38 | P.PN ---
Progress Note - Text Progress Note Date: 11/26/23 Chief Complaint: Short of breath 73-year-old male patient with a known history of nonischemic cardiomyopathy, ventricular tachycardia with previous ablation, AICD placement, hyperlipidemia, former smoker, chronic obstructive pulmonary disease. Patient was in the hospital over a month ago. Admitted with COPD exacerbation, pill induced esophagitis, noted to have silent aspiration and a PEG tube was placed. Patient now presents with increasing shortness of breath. Bit altered mentation. Nonproductive cough. The last few days. At home about 2 L of nasal cannula. Symptoms became much worse this morning around 6 AM. Patient had to be placed on BiPAP. When I came to see this patient he was rather lethargic tired not really able to give much of a history. November 19: Patient still remains overflow in the ER room ED-1. More awake. On BiPAP. Spoke to the nurse to make sure the PEG tube feeding is started. Medications through the PEG tube. Patient does live with his and daughter. On IV cefepime, IV vancomycin. IV Solu-Medrol. Bronchodilators. Will send off nasopharyngeal MRSA swab. Short of breath. Tired. Additional information from cardiology notes: Cardiac catheterization February 2023: Stenting of proximal and mid LAD. 2D echo in April 2023: EF 30 to 35%. November 20: Breathing better. Up in a recliner. On nasal cannula 2 L. Patient daughter at the bedside. Discussed. She wishes patient to remain full code. Discussed with dietitian or Stephanie at the bedside. Plan to change to bolus feeding. Fluids continue to be restricted. For low sodium. November 21: 2D echo showed a left ventricular apical thrombus. Started on IV heparin. Breathing a bit better. Tolerating diet. Reclining in bed. Getting PEG tube bolus feeding November 22: Saw the patient earlier today. Daughter at the bedside. Discussed. Dry mouth. Tired. Tolerating PEG tube feeding. Started on Eliquis today. Some spotting of blood on the sputum. Watch closely. I discussed CODE STATUS with the daughter day before. Wants the patient to be full code. Patient's prognosis is rather guarded. November 23: Patient moved to the ICU yesterday. delirium from hypoxia, and hypercapnia. Doing better this morning. Tolerating tube feeding. On BiPAP 14/6/35%. Sinus rhythm. Tired. In bed. IV Zosyn November 24: Patient remained on BiPAP overnight. Tired. Back on nasal cannula this morning. Tolerating tube feeding. IV Zosyn. She some shortness of breath. Hypernatremia. Stop normal saline. Changed to D5.4 560 cc an hour. November 25: Patient became hypotensive overnight. Oxygenation decreased. On BiPAP. Blood gases showed pCO2 retention. Was put on Levophed. Vasopressin. Also spiked a fever to 101. On IV Zosyn. Blood cultures are pending. Patient is getting Jevity PEG tube boluses 4 times a day. Sodium is gone up to 155. Changing IV fluids to D5.45 at 125 an hour. Also free fluid through the PEG tube increased to 75 cc twice daily before and after bolus feeding. Patient daughter at the bedside. Did speak at length to her. Did explain to her that I spoke with her 3 days ago patient prognosis is guarded. ID consulted. Active Medications Acetaminophen (Acetaminophen Tab 500 Mg Tab) 500 mg PO Q6HR PRN PRN Reason: Fever and/ or Pain Last Admin: 11/26/23 08:02 Dose: 500 mg Albuterol/Ipratropium (Ipratropium-Albuterol 3 Ml Neb) 3 ml INHALATION RT-Q2H PRN PRN Reason: Shortness Of Breath Or Wheezing Last Admin: 11/20/23 08:45 Dose: 3 ml Amiodarone HCl (Amiodarone 200 Mg Tab) 200 mg PO DAILY@1000 JOSE MIGUEL Last Admin: 11/26/23 10:09 Dose: 200 mg Apixaban (Apixaban 5 Mg Tab) 5 mg PO BID [facility]; Protocol Last Admin: 11/26/23 08:01 Dose: 5 mg Aspirin (Aspirin 81 Mg) 81 mg PO HS@2200 JOSE MIGUEL Last Admin: 11/25/23 19:55 Dose: 81 mg Atorvastatin Calcium (Atorvastatin 80 Mg Tab) 80 mg PO HS@2200 JOSE MIGUEL Last Admin: 11/25/23 19:54 Dose: 80 mg Dapagliflozin (Dapagliflozin Propanediol 5 Mg Tablet) 5 mg PO DAILY [facility] Last Admin: 11/26/23 08:01 Dose: 5 mg Dextrose/Water (Dextrose 50% Syringe 50 Ml) 25 ml IVP PER PROTOCOL PRN; Protocol PRN Reason: Hypoglycemia Dextrose/Water (Dextrose 50% Syringe 50 Ml) 50 ml IVP PER PROTOCOL PRN; Protocol PRN Reason: Hypoglycemia Ezetimibe (Ezetimibe 10 Mg Tab) 10 mg PO DAILY@1000 [facility] Last Admin: 11/26/23 10:09 Dose: 10 mg Piperacillin Sod/Tazobactam (Sod 3.375 gm/ Sodium Chloride) 100 mls @ 25 mls/hr IVPB Q8HR [facility]; Protocol Last Admin: 11/26/23 15:02 Dose: 25 mls/hr Dextrose/Sodium Chloride (Dextrose 5%-1/2ns Iv Soln) 1,000 mls @ 125 mls/hr IV .Q8H JOSE MIGUEL Last Admin: 11/26/23 15:04 Dose: 125 mls/hr Norepinephrine Bitartrate 4 mg (/ Sodium Chloride) 254 mls @ 8.744 mls/hr IV .Q24H JOSE MIGUEL; Protocol Last Titration: 11/26/23 15:17 Dose: 0.15 mcg/kg/min, 43.72 mls/hr Vasopressin 60 unit/ Sodium (Chloride) 153 mls @ 4.59 mls/hr IV .Q24H [facility]; Protocol Last Admin: 11/26/23 00:09 Dose: 0.03 units/min, 4.59 mls/hr Insulin Aspart (Insulin Aspart (Novolog) 100 Unit/Ml Vial) 0 unit SQ Q6HR [facility]; Protocol Last Admin: 11/26/23 11:55 Dose: 6 unit Methylprednisolone Sodium Succinate (Methylprednisolone Sod Succi 40 Mg/Ml 1 Ml Vial) 40 mg IV Q8H [facility] Last Admin: 11/26/23 15:02 Dose: 40 mg Metoprolol Tartrate (Metoprolol Tartrate 25 Mg Tab) 25 mg PO BID [facility] Last Admin: 11/26/23 10:04 Dose: Not Given Mexiletine HCl (Mexiletine 200 Mg Cap) 200 mg PO TID@0600,1400,2200 [facility] Last Admin: 11/26/23 15:02 Dose: 200 mg Montelukast Sodium (Montelukast 10 Mg Tab) 10 mg PO DAILY@1000 JOSE MIGUEL Last Admin: 11/26/23 10:09 Dose: 10 mg Naloxone HCl (Naloxone 0.4 Mg/Ml 1 Ml Vial) 0.2 mg IV Q2M PRN PRN Reason: Opioid Reversal Levalbuterol 1.25 Mg Inhaled Solution Neb 1 puff INHALATION RT-Q6H PRN PRN Reason: Shortness Of Breath Last Admin: 11/24/23 08:52 Dose: 1 puff Levalbuterol Nebulized 1.25 Mg/3 Ml Nebule 1.25 mg INHALATION RT-QID [facility] Last Admin: 11/26/23 11:16 Dose: 1.25 mg Psyllium Hydrophilic Mucilloid (Psyllium Husk 100% 6 Gm Packet) 6 gm PO BID@1000,2200 JOSE MIGUEL Last Admin: 11/26/23 10:09 Dose: 6 gm Sacubitril/Valsartan (Sacubitril/Valsartan 24 Mg-26 Mg Tablet) 1 each PO HS JOSE MIGUEL Last Admin: 11/25/23 19:54 Dose: 1 each Vancomycin HCl (Vancomycin 125 Mg Capsule) 125 mg PO QID [facility]; Protocol Social history: Lives with his and daughter. Smoked for 20 years 4 to 5 cigarettes a day stopped at the age of 38. No alcohol. Physical examination: VITAL SIGNS: 101.1, 99, 29, 93 x 56, 95% on BiPAP 50% GENERAL: Reclining in bed, lethargic. Bruising on both extremities. EYES: Pupils equal. Conjunctiva dilma l. HEENT: External appearance of nose and ears normal, oral cavity-dry mucous membranes NECK: JVD able to assess; masses not palpable. HEART: First and second heart sounds are normal; no edema. LUNGS: Respiratory rate increased; decreased breath sounds. ABDOMEN: Soft, nontender, liver spleen not palpable, no masses palpable. PEG tube PSYCH: Lethargic MUSCULOSKELETAL:No Clubbing/cyanosis;muscles-grossly intact INVESTIGATIONS, reviewed in the clinical context: November 25: White count was 38.7 hemoglobin 9.5 platelets 245 sodium 135 potassium 5.2 creatinine 1.02. ABG: pH 7.37 pCO2 58 pO2 61 November 24: White count 20.2 hemoglobin 10.3 sodium 152 creatinine 0.71 November 23: White count 19.5 hemoglobin 10.6 potassium 4.5 BUN 50 creatinine 0.61 Limited 2D echocardiogram: Probable left ventricle apical thrombus. EF 30 to 35% Lumbar spine CT: Foraminal stenosis at L5-S1 and severe and L4-L5 November 21: White count 18.1 hemoglobin 10.5 platelets 241 potassium 4.3 creatinine 0.52 November 19: White count 26.2 hemoglobin 10.9 platelets 234 sodium 137 potassium 5 BUN 18 creatinine 0.53. Procalcitonin 1.11 November 18: White count 32.9 hemoglobin 14 platelets were 82 sodium 124 potassium 4.7 BUN 17 creatinine 0.45 Troponin I 0.012 ammonia less than 9 proBNP 1350 UA: Negative Influenza type A, B, RSV, COVID-19: Not detected ABG: pH 7.4 pCO2 58 pO2 62 EKG tracing personally reviewed by me-intraventricular conduction delay. Sinus rhythm. Chest x-ray film personally reviewed by me-cardiomegaly. Cannot rule out infiltrate Chest CTA: Negative for PE Assessment: -Acute asthma/COPD, in a [id number], causing respiratory failure: Worsening Xopenex. DuoNeb as needed IV Solu-Medrol 40 mg every 8. -Hypernatremia, free water deficit: Worsening Increase IV fluids to D5.4 5, 125 cc an hour. Increase free water with bolus feeding 75 cc before and after after each feeding that is 4 times a day -Hypotensive and septic shock IV Levophed IV vasopressin -Acute metabolic/hypoxic encephalopathy on presentation: Worsening -Left ventricular thrombus, Eliquis -Worsening sepsis picture with spiking fever. IV Zosyn. Cultures pending Consult ID -Suspicious of bilateral basilar pneumonia suspect gram-negative organism: Better IV Zosyn -Acute on chronic hypoxic and hypercapnic respiratory failure: Worsening On BiPAP 50% - PEG tube placement on 10/15/2023. NPO by mouth Dysphagia with silent aspiration noted on modified barium swallow, PEG tube feeding as bolus 4 times daily. 75 cc of free water before and after each feeding -Left vertebral artery stenosis history -Essential hypertension Entresto, Lopressor, -Left thyroid nodule measuring 2.9 cm, was to be followed up in the outpatient setting from last admission -Nonischemic cardiomyopathy/chronic congestive heart failure, EF 30-35% from April 2023 Entresto. Lopressor-hold. -CAD, with stent to LAD in February 2023 Aspirin. Lipitor. Plavix. - AICD-history of ventricular tachycardia status post ablation, status post -History of previous ventilatory dependent respiratory failure secondary to COPD exacerbations -History of brain hemorrhage while on blood thinners -Full code Increase IV fluids to 125 cc an hour. Cultures pending. On IV Levophed IV vasopressin. Increase free water through PEG tube. ID consulted. Spoke to the daughter at length at the bedside. Prognosis guarded. Add subcu Levemir 12 units subcu nightly. Past Medical History Past Medical History: Asthma, COPD, Hyperlipidemia Additional Past Medical History / Comment(s): VTach, nonischemic cardiomyopathy, CHF, organized left ventricular apical clot, previous DVT ablation, asthma requiring intubation twice, BRAIN BLEED WHILE ON BLOOD THINNER RX 2009, cataracts bilaterally History of Any Multi-Drug Resistant Organisms: None Reported Past Surgical History: AICD, EPS, Pacemaker Additional Past Surgical History / Comment(s): 12/07/15 EPS wtih VT ablation. Other surgical hx: BRAIN SURGERY FOLLOWING BLEED. AICD/PACEMAKER, [facility]. generator change, Defibrilator testing Past Anesthesia/Blood Transfusion Reactions: No Reported Reaction Type of Cardiac Device: Permanent Pacemaker, AICD Device Placement Date:: 2005 implanted with gen change 2012 Past Psychological History: No Psychological Hx Reported Smoking Status: Never smoker Past Alcohol Use History: None Reported Past Drug Use History: None Reported
[2023-11-26] MEDS: VANCOMYCIN 125 MG CAPSULE PO SCH (15:42)
[2023-11-26] MEDS: LACTATED RINGERS 1,000 ML IV ONE (16:32)
[2023-11-26 17:14] LABS: Glucose,Whole Blood 166 mg/dL (70-110)
[2023-11-26] MEDS: INSULIN DETEMIR (LEVEMIR) 100 UNIT/ML SYR SQ SCH (21:34)
--- NOTE | 2023-11-26 22:56 | P.CONS ---
History of Present Illness - Reason for Consult Consult date: 11/26/23 Fever Requesting physician: Trey Doshi - Chief Complaint Fever x few days - History of Present Illness Patient is a 73-year-old male past medical his significant for COPD hyperlipidemia nonischemic cardiomyopathy CHF history of brain bleed presented to the hospital about a week ago on 11/19/2023 for evaluation of difficulty in breathing and this patient symptom has been getting worse for few days and did have a nonproductive cough patient on presentation to the hospital was afebrile however he did start spiking fever yesterday morning with a temperature of 100.6 F and did have another fever this morning of 101 F patient not significantly tachycardic however the patient is hypotensive requiring pressor support and the patient is on BiPAP on 50% FiO2 patient never get intubated he was on a nasal cannula oxygen for initial 3 days of his hospital stay however has been on a BiPAP since the evening of 11/23/2023 patient did have blood cultures obtained on admission which has been negative no sputum has been collected patient did have a white count of 32,000 on admission which initially improved but is up to 38.7 today creatinine has been normal liver isms are normal he did have progressive 0.34 on 11/22/2023 urine has been negative patient did have a chest x-ray left lower lobe opacity atelectasis and pneumonia not excluded infectious disease was consulted today after the patient has been hospital for about a week for a fever that started yesterday morning, patient is on Zosyn since 11/21/2023 Review of Systems Positive points has been mentioned in HPI complete review could not be obtained because of his underlying mental status Past Medical History Past Medical History: Asthma, COPD, Hyperlipidemia Additional Past Medical History / Comment(s): VTach, nonischemic cardiomyopathy, CHF, organized left ventricular apical clot, previous DVT ablation, asthma requiring intubation twice, BRAIN BLEED WHILE ON BLOOD THINNER RX 2009, cataracts bilaterally History of Any Multi-Drug Resistant Organisms: None Reported Past Surgical History: AICD, EPS, Pacemaker Additional Past Surgical History / Comment(s): 12/07/15 EPS wt VT ablation. Other surgical hx: BRAIN SURGERY FOLLOWING BLEED. AICD/PACEMAKER, [facility]. generator change, Defibrilator testing Past Anesthesia/Blood Transfusion Reactions: No Reported Reaction Type of Cardiac Device: Permanent Pacemaker, AICD Device Placement Date:: 2005 implanted with gen change 2012 Past Psychological History: No Psychological Hx Reported Smoking Status: Never smoker Past Alcohol Use History: None Reported Past Drug Use History: None Reported - Past Family History Mother Family Medical History: No Reported History Additional Family Medical History / Comment(s): Mother at age 92 yrs. Father Family Medical History: No Reported History Additional Family Medical History / Comment(s): Father is healthy and 95 yrs old. Medications and Allergies Allergies Allergy/AdvReac Type Severity Reaction Status Date / Time hydrocodone [From [employer]] Allergy Difficulty Verified 11/19/23 12:16 breathing due to asthma ibuprofen Allergy Was told Verified 11/19/23 12:16 not to take while on Brilinta albuterol AdvReac Rapid Verified 11/19/23 12:16 Heart Rate Physical Exam Vitals: Vital Signs Temp Pulse Resp BP Pulse Ox FiO2 11/26/23 12:45 100 22 96/55 95 11/26/23 12:30 100 20 97/30 95 11/26/23 12:15 98 16 102/60 94 L 11/26/23 12:00 98.9 F 99 21 105/56 94 L 11/26/23 11:45 102 H 22 87/59 94 L 11/26/23 11:30 99 29 H 93/56 95 11/26/23 11:17 97 50 11/26/23 11:15 97 23 90/60 95 11/26/23 11:00 99 25 H 97/64 95 11/26/23 10:45 98 26 H 94/60 96 11/26/23 10:30 97 25 H 94/57 97 11/26/23 10:15 97 19 94/57 98 11/26/23 10:00 98 22 108/59 98 50 11/26/23 09:55 50 11/26/23 09:45 98 17 101/61 98 11/26/23 09:30 99 20 91/56 93 L 11/26/23 09:15 98 25 H 91/54 92 L 11/26/23 09:00 98 21 95/61 93 L 11/26/23 08:45 98 18 97/61 92 L 11/26/23 08:30 99 19 92/61 92 L 11/26/23 08:15 101 H 25 H 99/63 93 L 11/26/23 08:10 96 11/26/23 08:00 101.0 F H 100 24 102/63 93 L 30 11/26/23 07:52 98 30 11/26/23 07:45 99 30 H 108/70 92 L 11/26/23 07:30 96 33 H 115/66 92 L 11/26/23 07:15 96 26 H 102/65 91 L 11/26/23 07:00 97 18 109/70 92 L 11/26/23 06:45 96 26 H 106/59 93 L 11/26/23 06:30 90 19 103/57 90 L 11/26/23 06:15 92 20 101/65 91 L 11/26/23 06:00 90 26 H 90/57 90 L 11/26/23 05:45 89 29 H 90/57 90 L 11/26/23 05:30 90 26 H 87/57 90 L 11/26/23 05:28 30 11/26/23 05:15 93 28 H 120/60 94 L 11/26/23 05:00 93 39 H 119/69 89 L 11/26/23 04:45 92 27 H 115/64 97 11/26/23 04:30 92 28 H 113/67 97 11/26/23 04:15 89 27 H 113/69 98 11/26/23 04:00 99.5 F 89 22 100/70 92 L 30 11/26/23 03:45 87 23 108/68 95 11/26/23 03:30 86 14 100/64 93 L 11/26/23 03:15 86 20 102/65 93 L 11/26/23 03:00 85 18 96/67 94 L 11/26/23 02:45 85 15 96/53 94 L 11/26/23 02:30 87 18 101/66 95 11/26/23 02:15 87 18 100/67 94 L 11/26/23 02:00 86 21 100/55 95 11/26/23 01:45 85 22 105/66 96 11/26/23 01:30 85 11 L 106/74 93 L 11/26/23 01:15 83 28 H 100/71 96 11/26/23 01:00 84 10 L 104/64 97 11/26/23 00:45 82 9 L 98/61 96 11/26/23 00:30 77 16 91/58 95 11/26/23 00:19 30 11/26/23 00:15 79 19 78/50 97 11/26/23 00:00 99.8 F H 80 21 75/50 97 30 11/25/23 23:45 80 26 H 80/50 97 11/25/23 23:30 79 15 72/40 97 11/25/23 23:18 81 20 72/40 97 11/25/23 23:15 80 23 79/48 97 11/25/23 23:00 80 22 73/46 97 11/25/23 22:45 79 37 H 70/42 98 11/25/23 22:00 80 21 68/41 97 11/25/23 21:00 86 25 H 94/59 94 L 11/25/23 20:39 93 11/25/23 20:31 96 30 11/25/23 20:00 99.8 F H 112 H 30 H 104/66 94 L 30 11/25/23 19:00 112 H 28 H 109/71 95 11/25/23 18:00 114 H 24 116/79 95 30 11/25/23 17:00 103 H 28 H 118/66 98 11/25/23 16:00 101.3 F H 104 H 28 H 112/62 95 30 11/25/23 15:53 30 11/25/23 15:52 104 H 27 H 11/25/23 15:00 101 H 28 H 118/72 95 11/25/23 14:00 99 26 H 110/68 95 Intake and Output 11/25/23 11/26/23 11/26/23 22:59 06:59 14:59 Intake Total 7834.554 2032.153 1769.171 Output Total 355 525 320 Balance 9224.960 9554.153 1449.171 Intake: IV 100 100 480 Dextrose 5%-0.45% NaCl 1, 380 000 ml @ 125 mls/hr IV . Q8H [facility] Rx#:[id number] Piperacillin-Tazobactam 3 100 100 100 .375 gm In Sodium Chloride 0.9% 100 ml @ 25 mls/hr IVPB Q8HR [facility] Rx# :[id number] Intake, IV Titration 500.062 770.153 209.171 Amount Dextrose 5%-0.45% NaCl 1, 480 480 60 000 ml @ 125 mls/hr IV . Q8H [facility] Rx#:[id number] Norepinephrine 4 mg In 20.062 290.153 149.171 Sodium Chloride 0.9% 250 ml @ 0.03 MCG/KG/MIN 8. 744 mls/hr IV .Q24H [facility] Rx#:[id number] Oral 1080 Tube Feeding 780 750 Other 60 60 Output: Urine 355 525 320 Other: Voiding Method Indwelling Catheter Indwelling Catheter Indwelling Catheter GENERAL DESCRIPTION: Elderly male lying in bed, no distress. No tachypnea or accessory muscle of respiration use. HEENT: Shows Pallor , no scleral icterus. NECK: Trachea central, no thyromegaly. LUNGS: Unlabored breathing. Decreased breath sound at the base. HEART: S1, S2, regular rate and rhythm. ABDOMEN: Soft, mild tenderness right lower abdominal area EXTREMITIES: No edema of feet. SKIN: No rash, NEUROLOGICAL: The patient is lethargic orientation could not be determined Results CBC & Chem 7: 11/28/23 04:54 11/28/23 04:54 Labs: Abnormal Lab Results - Last 24 Hours (Table) 11/25/23 11/25/23 11/26/23 Range/Units 18:04 21:50 00:14 WBC (3.8-10.6) k/uL RBC (4.30-5.90) m/uL Hgb (13.0-17.5) gm/dL Hct (39.0-53.0) % MCV (80.0-100.0) fL MCHC (31.0-37.0) g/dL RDW (11.5-15.5) % ABG pCO2 (35-45) mmHg ABG pO2 (83-108) mmHg ABG HCO3 (21-25) mmol/L ABG Total CO2 (19-24) mmol/L ABG O2 Saturation (94-97) % Sodium (137-145) mmol/L Potassium (3.5-5.1) mmol/L Chloride (98-107) mmol/L BUN (9-20) mg/dL Glucose (74-99) mg/dL POC Glucose (mg/dL) 204 H 258 H 197 H (70-110) mg/dL Calcium (8.4-10.2) mg/dL 11/26/23 11/26/23 11/26/23 Range/Units 03:44 03:44 06:29 WBC 38.7 H (3.8-10.6) k/uL RBC 3.05 L (4.30-5.90) m/uL Hgb 9.5 L (13.0-17.5) gm/dL Hct 32.1 L (39.0-53.0) % MCV 105.0 H (80.0-100.0) fL MCHC 29.8 L (31.0-37.0) g/dL RDW 16.7 H (11.5-15.5) % ABG pCO2 (35-45) mmHg ABG pO2 (83-108) mmHg ABG HCO3 (21-25) mmol/L ABG Total CO2 (19-24) mmol/L ABG O2 Saturation (94-97) % Sodium 155 H (137-145) mmol/L Potassium 5.2 H (3.5-5.1) mmol/L Chloride 119 H (98-107) mmol/L BUN 89 H (9-20) mg/dL Glucose 222 H (74-99) mg/dL POC Glucose (mg/dL) 271 H (70-110) mg/dL Calcium 8.1 L (8.4-10.2) mg/dL 11/26/23 11/26/23 Range/Units 09:21 11:40 WBC (3.8-10.6) k/uL RBC (4.30-5.90) m/uL Hgb (13.0-17.5) gm/dL Hct (39.0-53.0) % MCV (80.0-100.0) fL MCHC (31.0-37.0) g/dL RDW (11.5-15.5) % ABG pCO2 58 H (35-45) mmHg ABG pO2 61 L (83-108) mmHg ABG HCO3 33 H (21-25) mmol/L ABG Total CO2 35 H (19-24) mmol/L ABG O2 Saturation 90.0 L (94-97) % Sodium (137-145) mmol/L Potassium (3.5-5.1) mmol/L Chloride (98-107) mmol/L BUN (9-20) mg/dL Glucose (74-99) mg/dL POC Glucose (mg/dL) 271 H (70-110) mg/dL Calcium (8.4-10.2) mg/dL Assessment and Plan (1) Sepsis Status: Acute Code(s): A41.9 - SEPSIS, UNSPECIFIED ORGANISM SNOMED Code(s): 31396990 Plan: 1patient with sepsis in this patient who did have a fever elevated white count hypotension requiring pressor support predominantly respiratory symptoms with left lower lobe atelectasis versus pneumonia to be the likely concern patient however was noticed to be slightly tender on abdominal examination underlying abdominal source not entirely excluded 2-we will obtain blood culture check a CRP and a procalcitonin 3-obtain a CT of abdominal pelvis with contrast to rule out intra-abdominal pathology 4-for now continue with Zosyn 3.375 grams every 8 hours Family at the bedside question concern answered Prognosis guarded We will follow on clinical condition and cultures to further adjust medication if needed Thank you for this consultation we will follow the patient along with you Dictation was produced using [employer] dictation software. please excuse any grammatical, word or spelling errors. Time with Patient: Greater than 30
[2023-11-26] MEDS ORDERED: IOPAMIDOL CONTRAST (ORAL USE) VIAL PO PRN (22:57)
[2023-11-26 23:32] LABS: Glucose,Whole Blood 190 mg/dL (70-110)
[2023-11-27 02:51] LABS: Glucose,Whole Blood 227 mg/dL (70-110)
[2023-11-27 05:38] LABS: African American GFR (CKD) 42 (>60 ml/min/1.73 sqM); Anion Gap 5 mmol/L; Calcium 7.4 mg/dL (8.4-10.2); Carbon Dioxide 26 mmol/L (22-30); Chloride 120 mmol/L (98-107); Glucose 198 mg/dL (74-99); Non-African American GFR(CKD) 37 (>60 ml/min/1.73 sqM); Potassium 5.8 mmol/L (3.5-5.1); Sodium 151 mmol/L (137-145)
[2023-11-27 05:43] LABS: Anisocytosis Slight; Blood Urea Nitrogen 109 mg/dL (9-20); Hypochromasia Marked; MCH 31.9 pg (25.0-35.0); MCHC 30.2 g/dL (31.0-37.0); MCV 105.5 fL (80.0-100.0); Macrocytosis Marked; Mean Platelet Volume 10.2; Platelet Count 180 k/uL (150-450); RBC 2.37 m/uL (4.30-5.90); RDW 17.3 % (11.5-15.5)
[2023-11-27 05:58] LABS: C Reactive Protein 6.4 mg/dL (<1.0)
[2023-11-27 06:03] LABS: HGB 7.5 gm/dL (13.0-17.5)
[2023-11-27 06:13] LABS: Glucose,Whole Blood 233 mg/dL (70-110)
[2023-11-27 06:15] LABS: Band Neutrophils % 1 %; Lymphocytes # (M) 5.33 k/uL (1.0-4.8); Neutrophils % (M) 81 %; Nucleated Red Blood Cells 1 /100 WBC (0-0); Total Cells Counted 200; WBC 29.6 k/uL (3.8-10.6)
[2023-11-27 06:18] LABS: Crenated RBC Present; Polychromasia Present
--- NOTE | 2023-11-27 07:41 | XR ---
EXAMINATION TYPE: XR chest 1V portable DATE OF EXAM: 11/27/2023 HISTORY: Shortness of breath. COMPARISON: 11/26/2023 TECHNIQUE: Single view of the chest is submitted. FINDINGS: Demonstrated are scattered senescent parenchymal change. Basilar atelectasis and/or infiltrates remain unchanged. The heart is stable. Hilar and mediastinal structures are within normal limits. Degenerative changes are seen of the dorsal spine. IMPRESSION: 1. Basilar atelectasis and/or infiltrates remain unchanged.
--- NOTE | 2023-11-27 09:32 | P.PN ---
Subjective Progress Note Date: 11/26/23 11/26/2023: Patient was seen for a follow-up. Patient has BiPAP on. Patient's blood pressure has been running low. Patient is on pressors, including Levophed 0.14 mcg/kg/min, also on vasopressin 0.03 units/min. Patient is still full code. Patient's daughter is coming out of state to make further decisions. 11/25/2023: Patient initially seen by Dr. Gee Chatman. Please refer to his note for details. Patient is a 73-year-old male with altered mental status, likely due to meta bolic encephalopathy. Patient has chronic lower back pain with left foot drop. Recommend EMG nerve conductions outpatient. Patient was seen for a follow-up. Patient is laying in the bed, has BiPAP on. Patient is currently on Zosyn and IV fluids. Per nursing report, patient answers appropriately. He is slightly confused at times. Some of the work-up during this hospital visit consisted of: Initial pulse ox is 91% liters on BiPAP currently it's improved and he is on 2 L of nasal cannula. His sodium is 124 and the repeated one is 127. CT of the head is reported as no acute intracranial process. Microangiopathic. Evidence of previous darshan hole. I personally reviewed this to the head and I agree there is no acute subacute ischemia. Patient seems to have left frontal encephalomalacia. Which was seen on prior CTs at least since January 2023. 2-D echo was reported as severely dilated left ventricular cavity. Ejection fraction of 15-20%. Apical thrombus appreciated in the left ventricle cavity. CT lumbar: reported as no evidence for spinal fracture. Severe degenerative changes of the spine with neural foraminal stenosis worse at L5-S1 severe left, L4-L5 severe right. Objective - Vital Signs Vital signs: Vital Signs Temp 98.6 F 11/26/23 16:00 Pulse 82 11/26/23 17:00 Resp 25 H 11/26/23 17:00 BP 99/52 11/26/23 17:00 Pulse Ox 97 11/26/23 17:00 FiO2 50 11/26/23 16:04 Intake & Output 11/25/23 11/26/23 11/26/23 18:59 06:59 18:59 Intake Total 2170 2360.215 4148.171 Output Total 667 523 1944 Balance 1320 0583.012 1819.171 Weight 76.5 kg Intake: IV 211 527 7611 Dextrose 5%-0.45% NaCl 1, 880 000 ml @ 125 mls/hr IV . Q8H [facility] Rx#:[id number] Lactated Ringers 1,000 ml 1000 @ 999 mls/hr IV .Q1H1M [facility] Rx#:[id number] Piperacillin-Tazobactam 3 200 100 200 .375 gm In Sodium Chloride 0.9% 100 ml @ 25 mls/hr IVPB Q8HR [facility] Rx# :[id number] Sodium Chloride 0.9% 1, 250 000 ml @ 50 mls/hr IV . Q20H [facility] Rx#:[id number] Intake, IV Titration 420 1030.215 463.171 Amount Dextrose 5%-0.45% NaCl 1, 420 720 60 000 ml @ 125 mls/hr IV . Q8H [facility] Rx#:[id number] Norepinephrine 4 mg In 310.215 403.171 Sodium Chloride 0.9% 250 ml @ 0.03 MCG/KG/MIN 8. 744 mls/hr IV .Q24H [facility] Rx#:[id number] Oral 1605 Tube Feeding 1140 1140 Other 160 90 Output: Urine 017 992 2732 Other: Voiding Method Indwelling Catheter Indwelling Catheter Indwelling Catheter # Bowel Movements 1 0 - Exam Patient is somnolent, slightly encephalopathic today. He does open his eyes and makes eye contact. Patient is following directions very well. Patient has BiPAP on, therefore speech functions not able to be assessed. On cranial examination, his pupils are equal, round and reacting. Extraocular muscles are intact. Patient's strength is proximal upper extremities 2 with myoclonic jerks. Second Helper is 4+, patient did not cooperate with testing of the lower extremities. Dr. Chatman has mentioned about patient's left foot drop. On my review today, it does appear that patient's left foot is slightly more plantarflexed as compared to the right. He was wiggling his right foot better but not much the left. Again, patient was not cooperating today. Patient has a lot of bruises, and has some mottling. - Labs CBC & Chem 7: 11/27/23 04:46 11/27/23 04:46 Labs: Abnormal Lab Results - Last 24 Hours (Table) 04/02/24 04/03/24 04/03/24 Range/Units 21:50 00:14 03:44 WBC 38.7 H (3.8-10.6) k/uL RBC 3.05 L (4.30-5.90) m/uL Hgb 9.5 L (13.0-17.5) gm/dL Hct 32.1 L (39.0-53.0) % MCV 105.0 H (80.0-100.0) fL MCHC 29.8 L (31.0-37.0) g/dL RDW 16.7 H (11.5-15.5) % ABG pCO2 (35-45) mmHg ABG pO2 (83-108) mmHg ABG HCO3 (21-25) mmol/L ABG Total CO2 (19-24) mmol/L ABG O2 Saturation (94-97) % Sodium (137-145) mmol/L Potassium (3.5-5.1) mmol/L Chloride (98-107) mmol/L BUN (9-20) mg/dL Glucose (74-99) mg/dL POC Glucose (mg/dL) 258 H 197 H (70-110) mg/dL Calcium (8.4-10.2) mg/dL 11/26/23 11/26/23 11/26/23 Range/Units 03:44 06:29 09:21 WBC (3.8-10.6) k/uL RBC (4.30-5.90) m/uL Hgb (13.0-17.5) gm/dL Hct (39.0-53.0) % MCV (80.0-100.0) fL MCHC (31.0-37.0) g/dL RDW (11.5-15.5) % ABG pCO2 58 H (35-45) mmHg ABG pO2 61 L (83-108) mmHg ABG HCO3 33 H (21-25) mmol/L ABG Total CO2 35 H (19-24) mmol/L ABG O2 Saturation 90.0 L (94-97) % Sodium 155 H (137-145) mmol/L Potassium 5.2 H (3.5-5.1) mmol/L Chloride 119 H (98-107) mmol/L BUN 89 H (9-20) mg/dL Glucose 222 H (74-99) mg/dL POC Glucose (mg/dL) 271 H (70-110) mg/dL Calcium 8.1 L (8.4-10.2) mg/dL 11/26/23 11/26/23 Range/Units 11:40 17:12 WBC (3.8-10.6) k/uL RBC (4.30-5.90) m/uL Hgb (13.0-17.5) gm/dL Hct (39.0-53.0) % MCV (80.0-100.0) fL MCHC (31.0-37.0) g/dL RDW (11.5-15.5) % ABG pCO2 (35-45) mmHg ABG pO2 (83-108) mmHg ABG HCO3 (21-25) mmol/L ABG Total CO2 (19-24) mmol/L ABG O2 Saturation (94-97) % Sodium (137-145) mmol/L Potassium (3.5-5.1) mmol/L Chloride (98-107) mmol/L BUN (9-20) mg/dL Glucose (74-99) mg/dL POC Glucose (mg/dL) 271 H 166 H (70-110) mg/dL Calcium (8.4-10.2) mg/dL Assessment and Plan Assessment: This is a 73-year-old gentleman who presented because of hypoxia with a pulse ox of 88% with confusion. He was also found to have hyponatremia as well. Altered mental status due to metabolic encephalopathy as well as hypoxic encephalopathy--mentation improved. CT of the head is negative for any acute or subacute stroke Hyponatremia as low as 124, but now patient is hypernatremic with sodium 155. New onset spiking temperature, with Tmax 101.3, with leukocytosis, possible sepsis. Apical thrombus on left ventricle, on Eliquis Left foot drop going on for months with ongoing chronic lower back pain. Chronic low back pain and on CT lumbar has neural foraminal stenosis worse at L5-S1 severe left, L4-L5 severe right Dysphagia status post PEG tube placement last admission on 10/15/2023 History of subdural hematoma status post bur hole craniotomy in 2009. It was related to blood thinners. History of nonischemic cardiomyopathy as well as congestive heart farther status post AICD History of COPD Macrocytic anemia Plan: Patient's mentation is improving. He is still slightly encephalopathic, interm ittently gets confused as per nursing report as well. Patient initially had hyponatremia but now hypernatremic. Will defer to IM/critical care. Patient has macrocytic anemia. B12 885, folate 13.90. MMA, B6 pending. His last B12 was low 227 on 07/13/2023. Patient was not on any B12 replacement at home. Hemoglobin A1c 6.0. CT lumbar has neural foraminal stenosis worse at L5-S1 severe left, L4-L5 severe right with chronic low back pain. May follow-up with Orthopedic team as outpatient. EMG with nerve conduction study as an outpatient of the lowers to rule out any radiculopathy or neuropathy, or motor neuron disease. Regarding his dysphagia and further workup of his left foot drop recommend the patient to follow-up with a neurologist as an outpatient. They will attempt to follow-up with Dr. Parks patient has an apical thrombus over the left ventricle, and patient started on Eliquis 5 mg twice daily. Also on aspirin 81 mg daily, and Lipitor 80 mg daily. We'll defer the rest of the medical measure the primary and other specialists
--- NOTE | 2023-11-27 10:45 | P.PN ---
Subjective Progress Note Date: 11/27/23 This is a very pleasant 73-year-old male patient with a known history of nonischemic cardiomyopathy, ventricular tachycardia with previous ablation, AICD placement, hyperlipidemia, former smoker, chronic obstructive pulmonary disease, intracranial hemorrhage while on blood thinners back in 2009 with subsequent surgery. He was recently here in the hospital after having difficulty swallowing after having a choking episode taking his pills. He did undergo EGD however no foreign body were noted in the esophagus. Continued to have ongoing issues with difficulty swallowing and subsequently had a PEG tube placed on August 14, 2024. He was subsequently discharged home. He was brought back into the hospital today after being found to have progressive weakness, shortness of breath and low oxygen readings per his daughter. He is on home oxygen typically only 1 or 2 L per nasal cannula. He was found to be in significant shortness of breath with bronchospasm and wheezing and difficult to arouse. He was placed on BiPAP 12/6 and 50% FiO2 to maintain O2 saturation in the low 90s.'s x-ray revealed no acute pulmonary process. CT scan of the brain revealed no acute intracranial abnormalities. There is evidence of bur holes. White count 32.9. Hemoglobin 14.0. Platelets 182. INR 0.9. Sodium 124. Potassium 4.7. Bicarb 32. BUN 17. Creatinine 0.45. Glucose 147. proBNP 1350. Troponin negative x 1. Influenza screen was negative. Arterial blood gases on 50% FiO2 revealed a PaO2 of 62, pCO2 58 and a pH of 7.40. He is seen today in consultation in the emergency department. Resting on a stretcher. He is continued on BiPAP. He is a bit more arousable. Denies any worsening short ness of breath. O2 saturations in the mid 90s. He is afebrile. Hemodynamically stable. Patient was reevaluated today on 11/20/2023, patient was reevaluated again while in the ER, mentation seems to be a bit better, patient remains hemodynamically stable, he is empirically on antibiotics for presumptive aspiration pneumonia as noted on CT angiogram of the chest, and there was no evidence of pulmonary embolism. WBC count remains elevated at 26.2 hemoglobin is 10.9. Sodium is up to 127 renal profile is normal bicarb is 32 procalcitonin level is 1.11 patient is now on 2 L nasal cannula, he was earlier on BiPAP, and his O2 sats is 95%. Blood pressure is 100/78. Patient was reevaluated today on 11/21/2023, patient is much more awake today, feels much better, he is on nasal cannula at 2 L/min and O2 sats is 94%. He is hemodynamically stable, daughter is at bedside, she had lots of questions about his pneumonia and suspicion for aspiration, and all her questions were answered. Continues to have leukocytosis WBC count of 19.2 hemoglobin 11.6. Patient is doing well overall. Better compared to how he presented Reevaluate today on 11/22/23,Patient is sitting at the bedside recliner, doing well, asymptomatic on 2 L nasal cannula O2 saturation 95%. Hemodynamically stable. However continues to have leukocytosis with WBC count of 18.1 hemoglobin 10.5 basic metabolic profile is normal INR is normal PTT is 46.4, procalcitonin level is 0.34 consistent with clinical impression of pneumonia. Reevaluate today on 11/23/2023, patient continues to do fairly well, not in any distress, remains on 2 L nasal cannula, not in any distress. Hardly any pulmonary symptoms no cough no wheezing no shortness of breath, patient is hemodynamically stable remains on treatment for presumptive aspiration pneumonia. Procalcitonin level on this admission was 1.11, repeat is down to 0.34 The patient is seen today November 24, 2023 in follow-up in the intensive care unit. He had a rapid response team called on him last evening after being found with altered mental status. He was placed on BiPAP 14/6 and 100% FiO2 initially and his peak blood gases revealed a PaO2 of 240, pCO2 77 and a pH of 7.34. His FiO2 has been titrated down. Today he is awake and alert. Arousable. He remains on BiPAP. Chest x-ray reveals mild bibasilar infiltrates. Revealed stable intracranial findings. No evidence of acute intracranial abnormality. Cultures revealed no growth. White count 19.5. Hemoglobin 10.6. Platelets 217. Sodium 147. Potassium 4.5. Bicarb 39. BUN 50. Creatinine 0.61. Glucose 154. He remains on bronchodilators, steroids, Zosyn. Anticoagulated with Eliquis. The patient is seen today November 25, 2023 in follow-up in the intensive care unit. He is awake and alert in no acute distress. He is quite weak. He is maintaining O2 saturations in the upper 90s on 4 L/min per nasal cannula. He did utilize BiPAP last night 14/6 and 30% FiO2. He has normal staying at 50 MLS per hour. Chest x-ray continues to show stable left lower lobe infiltrate and/or atelectasis. Improved aeration of the right lower lobe. Blood cultures revealed no growth. White count 20.2. Hemoglobin 10.3. Platelets 234. Sodium 152. Potassium 4.8. Bicarb 35. BUN 56. Creatinine 0.71. Glucose 161. He remains on DuoNeb inhalations, Solu-Medrol, Zosyn. Anticoagulated with Eliquis. The patient is seen today November 26, 2023 in follow-up in the intensive care unit. He had developed hypotension throughout the night. He has had worsening oxygenation as well. He is currently on BiPAP 14/6 and 30% FiO2. Morning blood gases revealed a PaO2 of 61, pCO2 58 and pH of 7.37. He is requiring nore pinephrine at 0.11 mcg/kg/min or 8.6 mcg/min. Vasopressin at 0.03 units/min. D5.45 at 60 MLS per hour. Chest x-ray revealed streaky atelectasis of the left lower lobe. No significant change from previous. White count 38.7. Hemoglobin 9.5. Platelets 245. Sodium 155. Potassium 5.2. Bicarb 30. BUN 89. Creatinine 1.02. Glucose 222. He did have a temperature of 101.0. His procalcitonin was 0.34. He has remained on Zosyn. Repeat blood and urine cultures are pending. He remains on bronchodilators and steroids. Continued on Eliquis. Receiving Jevity 1.5 boluses for a total volume of 1560 MLS per day for nutritional support. The patient is seen today November 27, 2023 in follow-up in the intensive care unit. His condition has continued to deteriorate. He is now requiring norepinephrine at 15 mcg/min. He is on vasopressin at 0.03 units/h. He has D5W at 125 MLS per hour. His tube feedings have been on pause due to increased residuals. He does have facial grimacing on abdominal palpation. He has been on BiPAP throughout the night at 14/6 and 50% FiO2. Chest x-ray continues to show basilar atelectasis and/or infiltrates. Blood cultures are revealing no growth thus far. Urine culture revealed no growth. White count 29.6. Hemoglobin 7.5. Platelets 180. Sodium 151. Potassium 5.8. Bicarb 26. BUN 109. Creatinine 1.80. Glucose 198. Is continued on Zosyn and bronchodilators. Anticoagulated with Eliquis. Objective - Vital Signs Vital signs: Vital Signs Temp 99.0 F 11/27/23 08:00 Pulse 79 11/27/23 09:30 Resp 27 H 11/27/23 09:30 BP 100/53 11/27/23 09:30 Pulse Ox 78 L 11/27/23 09:30 FiO2 50 11/27/23 09:30 Intake & Output 11/26/23 11/27/23 11/27/23 18:59 06:59 18:59 Intake Total 4439.218 2881.269 422.257 Output Total 1245 235 20 Balance 3194.218 2646.269 402.257 Intake: IV 2330 1475 250 Dextrose 5%-0.45% NaCl 1, 1130 1375 250 000 ml @ 125 mls/hr IV . Q8H [facility] Rx#:[id number] Lactated Ringers 1,000 ml 1000 @ 999 mls/hr IV .Q1H1M [facility] Rx#:[id number] Piperacillin-Tazobactam 3 200 100 .375 gm In Sodium Chloride 0.9% 100 ml @ 25 mls/hr IVPB Q8HR [facility] Rx# :[id number] Intake, IV Titration 504.218 536.269 172.257 Amount Dextrose 5%-0.45% NaCl 1, 60 000 ml @ 125 mls/hr IV . Q8H [facility] Rx#:[id number] Norepinephrine 4 mg In 444.218 405.913 172.257 Sodium Chloride 0.9% 250 ml @ 0.03 MCG/KG/MIN 8. 744 mls/hr IV .Q24H [facility] Rx#:[id number] Vasopressin 60 unit In 130.356 Sodium Chloride 0.9% 150 ml @ 0.03 UNITS/MIN 4.59 mls/hr IV .Q24H [facility] Rx#: [id number] Oral 1605 Tube Feeding 720 Other 150 Output: Urine 1245 235 20 Other: Voiding Method Indwelling Catheter Indwelling Catheter # Bowel Movements 0 - Exam GENERAL EXAM: Obtunded, weak, frail 73-year-old male, on BiPAP 14/6 and 30% Fi O2. HEAD: Normocephalic. EYES: Normal reaction of pupils, equal size. NOSE: Clear with pink turbinates. THROAT: No erythema or exudates. NECK: No masses, no JVD. CHEST: No chest wall deformity. LUNGS: Minich breath sounds and crackles at the left base, no rhonchi no wheezes CVS: S1 and S2 normal with no audible murmur, regular rhythm. ABDOMEN: No hepatosplenomegaly, normal bowel sounds, no guarding or rigidity. SKIN: No rashes CENTRAL NERVOUS SYSTEM: Arousable, follows simple instructions but a bit confused. EXTREMITIES: No clubbing edema or cyanosis. - Labs CBC & Chem 7: 11/27/23 04:46 11/27/23 04:46 Labs: Abnormal Lab Results - Last 24 Hours (Table) 11/26/23 11/26/23 11/26/23 Range/Units 11:40 17:12 23:30 WBC (3.8-10.6) k/uL RBC (4.30-5.90) m/uL Hgb (13.0-17.5) gm/dL Hct (39.0-53.0) % MCV (80.0-100.0) fL MCHC (31.0-37.0) g/dL RDW (11.5-15.5) % Neutrophils # (Manual) (1.3-7.7) k/uL Lymphocytes # (Manual) (1.0-4.8) k/uL Nucleated RBCs (0-0) /100 WBC Macrocytosis Sodium (137-145) mmol/L Potassium (3.5-5.1) mmol/L Chloride (98-107) mmol/L BUN (9-20) mg/dL Creatinine (0.66-1.25) mg/dL Glucose (74-99) mg/dL POC Glucose (mg/dL) 271 H 166 H 190 H (70-110) mg/dL Calcium (8.4-10.2) mg/dL C-Reactive Protein (<1.0) mg/dL 11/27/23 11/27/23 11/27/23 Range/Units 02:49 04:46 04:46 WBC 29.6 H (3.8-10.6) k/uL RBC 2.37 L (4.30-5.90) m/uL Hgb 7.5 L D (13.0-17.5) gm/dL Hct 25.0 L (39.0-53.0) % MCV 105.5 H (80.0-100.0) fL MCHC 30.2 L (31.0-37.0) g/dL RDW 17.3 H (11.5-15.5) % Neutrophils # (Manual) 24.20 H (1.3-7.7) k/uL Lymphocytes # (Manual) 5.33 H (1.0-4.8) k/uL Nucleated RBCs 1 H (0-0) /100 WBC Macrocytosis Marked A Sodium 151 H (137-145) mmol/L Potassium 5.8 H (3.5-5.1) mmol/L Chloride 120 H (98-107) mmol/L BUN 109 H* (9-20) mg/dL Creatinine 1.80 H (0.66-1.25) mg/dL Glucose 198 H (74-99) mg/dL POC Glucose (mg/dL) 227 H (70-110) mg/dL Calcium 7.4 L (8.4-10.2) mg/dL C-Reactive Protein 6.4 H (<1.0) mg/dL 11/27/23 Range/Units 06:12 WBC (3.8-10.6) k/uL RBC (4.30-5.90) m/uL Hgb (13.0-17.5) gm/dL Hct (39.0-53.0) % MCV (80.0-100.0) fL MCHC (31.0-37.0) g/dL RDW (11.5-15.5) % Neutrophils # (Manual) (1.3-7.7) k/uL Lymphocytes # (Manual) (1.0-4.8) k/uL Nucleated RBCs (0-0) /100 WBC Macrocytosis Sodium (137-145) mmol/L Potassium (3.5-5.1) mmol/L Chloride (98-107) mmol/L BUN (9-20) mg/dL Creatinine (0.66-1.25) mg/dL Glucose (74-99) mg/dL POC Glucose (mg/dL) 233 H (70-110) mg/dL Calcium (8.4-10.2) mg/dL C-Reactive Protein (<1.0) mg/dL Microbiology - Last 24 Hours (Table) 11/25/23 17:14 Blood Culture - Preliminary Blood 11/25/23 17:14 Blood Culture - Preliminary Blood 11/25/23 16:35 Urine Culture - Final Urine,Catheterized Assessment and Plan Assessment: Altered mental status and progressive weakness suspect secondary to hypotension, underlying infection Hypotension suspect secondary to sepsis, requiring increasing amounts of vasopressors Acute on chronic hypoxemic respiratory failure secondary to COPDasthma exacerbation, mild basilar atelectasis Leukocytosis of unclear allergy, blood cultures pending, procalcitonin 0.34, continued on Zosyn Hyponatremia, suspect secondary to no oral intake due to n.p.o. status secondary to dysphagia Recent hospitalization for dysphagia with eventual PEG tube insertion on October 15, 2023 Nonischemic cardiomyopathy status post AICD placement initially in 2005 with generator change in 2012 History of intracranial hemorrhage requiring surgical intervention secondary to blood thinners in 2009 History of ventilatory dependent respiratory failure secondary to COPD/asthma exacerbation Non-smoker Poor overall functional performance based on the above-mentioned multiple comorbidities Plan: The patient was seen and evaluated Chest x-ray, labs and medications reviewed Currently on BiPAP / and 50% FiO2 Requiring increased norepinephrine and vasopressin Feedings are on hold due to residuals Facial grimacing with abdominal palpation Too unstable to go for CT scan of the abdomen today Prognosis is quite poor and guarded Code status to be addressed We will continue to follow I have personally seen and examined the patient, performed the documentation and the assessment and plan as written. Number of minutes spent on the visit: 10.
[2023-11-27 11:09] LABS: Glucose,Whole Blood 170 mg/dL (70-110)
[2023-11-27] MEDS: DEXTROSE 5% IN WATER 1,000 ML IV SCH (11:19)
--- NOTE | 2023-11-27 12:04 | P.NPCON ---
History of Present Illness - Reason for Consult acute renal failure - History of Present Illness patient is a 73-year-old male history of coronary artery disease, cardiomyopathy, COPD, dysphagia requiring PEG tube placement in September 2023. Patient is readmitted with shortness of breath and weakness. Patient became progressively hypotensive yesterday and has been maintained on pressors. Levo fed and vasopressin have increased significantly since yesterday. Urine output has been minimal over the last 24 hours. Blood pressure this morning is in the 70s systolic. No active bleeding noted. serum creatinine at 1.8 and B UN of 109. Potassium 5.8 and sodium is 151. patient is maintained on IV steroids and antibiotics. Nasal screen positive for MRSA. Blood cultures are currently pending. Review of Systems as per HPI Past Medical History Past Medical History: Asthma, COPD, Hyperlipidemia Additional Past Medical History / Comment(s): VTach, nonischemic cardiomyopathy, CHF, organized left ventricular apical clot, previous DVT ablation, asthma requiring intubation twice, BRAIN BLEED WHILE ON BLOOD THINNER RX 2009, cataracts bilaterally History of Any Multi-Drug Resistant Organisms: None Reported Past Surgical History: AICD, EPS, Pacemaker Additional Past Surgical History / Comment(s): 12/07/15 EPS [facility] [place] ablation. Other surgical hx: BRAIN SURGERY FOLLOWING BLEED. AICD/PACEMAKER, [facility]. generator change, Defibrilator testing Past Anesthesia/Blood Transfusion Reactions: No Reported Reaction Type of Cardiac Device: Permanent Pacemaker, AICD Device Placement Date:: 2005 implanted with gen change 2012 Past Psychological History: No Psychological Hx Reported Smoking Status: Never smoker Past Alcohol Use History: None Reported Past Drug Use History: None Reported - Past Family History Mother Family Medical History: No Reported History Additional Family Medical History / Comment(s): Mother at age 92 yrs. Father Family Medical History: No Reported History Additional Family Medical History / Comment(s): Father is healthy and 95 yrs old. Medications and Allergies Home Medications Medication Instructions Recorded Confirmed Type RX: Montelukast [Singulair] 10 mg PO DAILY@1000 09/12/15 11/19/23 History RX: Spironolactone [Aldactone] 25 mg PO DAILY@1000 09/12/15 11/19/23 History RX: Levalbuterol Hfa Inhaler 1 puff INHALATION RT-Q6H PRN 07/17/17 11/19/23 History [Xopenex Hfa Inhaler] RX: Levalbuterol Nebulized 1.25 mg INHALATION RT-QID 07/17/17 11/19/23 History [Xopenex Nebulized] RX: Mexiletine HCl 200 mg PO TID@0600,1400,2200 01/30/23 11/19/23 History RX: Atorvastatin [Lipitor] 80 mg PO HS@2200 03/14/23 11/19/23 History RX: Amiodarone [Cordarone] 200 mg PO DAILY@1000 07/12/23 11/19/23 History RX: Clopidogrel [Plavix] 75 mg PO DAILY@1000 07/12/23 11/19/23 History RX: Sacubitril/Valsartan [Entresto 1 tab PO BID@1000,0 07/12/23 11/19/23 History 24 mg-26 mg Tablet] Metoprolol Tartrate [Lopressor] 12.5 mg PO BID@1000,2200 11/19/23 11/19/23 History Psyllium Husk 100% [Metamucil 6 gm PO BID@1000,0 11/19/23 11/19/23 History Packet] RX: Aspirin EC [Ecotrin Low Dose] 81 mg PO HS@0 11/19/23 11/19/23 History RX: Ezetimibe [Zetia] 10 mg PO DAILY@1000 11/19/23 11/19/23 History RX: predniSONE 10 mg PO DAILY@1000 11/19/23 11/19/23 History Allergies Allergy/AdvReac Type Severity Reaction Status Date / Time hydrocodone [From [place]] Allergy Difficulty Verified 11/19/23 12:16 breathing due to asthma ibuprofen Allergy Was told Verified 11/19/23 12:16 not to take while on Brilinta albuterol AdvReac Rapid Verified 11/19/23 12:16 Heart Rate Physical Exam Vitals: Vital Signs Temp Pulse Resp BP Pulse Ox FiO2 11/27/23 11:45 80 18 91/46 50 11/27/23 11:30 80 17 86/41 11/27/23 11:15 82 23 86/41 11/27/23 11:00 85 23 90/45 50 11/27/23 10:45 85 24 88/44 98 11/27/23 10:30 90 15 82/41 11/27/23 10:15 92 14 76/44 11/27/23 10:00 90 22 80 L 11/27/23 09:45 86 21 91/44 11/27/23 09:30 79 27 H 100/53 78 L 50 11/27/23 09:15 81 14 106/51 98 50 11/27/23 09:00 81 16 100/51 50 11/27/23 08:45 80 25 H 99/48 98 50 11/27/23 08:40 82 11/27/23 08:30 80 20 103/50 96 50 11/27/23 08:29 80 11/27/23 08:28 95 50 11/27/23 08:27 50 11/27/23 08:15 81 18 101/47 95 50 11/27/23 08:00 99.0 F 15 102/43 97 50 11/27/23 07:45 85 20 97 11/27/23 07:30 85 19 96 11/27/23 07:15 86 27 H 11/27/23 07:00 89 10 L 102/50 99 11/27/23 06:45 86 10 L 87/59 98 50 11/27/23 06:30 82 19 97/48 98 11/27/23 06:15 86 23 91/51 98 11/27/23 06:00 86 26 H 101/52 98 50 11/27/23 05:45 88 18 113/54 98 11/27/23 05:30 92 15 113/53 95 11/27/23 05:15 87 19 110/42 93 L 11/27/23 05:00 89 26 H 100/41 99 50 11/27/23 04:45 85 18 93/55 99 11/27/23 04:30 82 23 86/47 97 11/27/23 04:15 81 21 93/40 98 11/27/23 04:00 80 18 88/52 99 11/27/23 03:45 85 20 108/55 98 11/27/23 03:44 50 11/27/23 03:30 82 13 114/82 98 11/27/23 03:15 86 25 H 107/64 99 11/27/23 03:00 99.5 F 88 14 98/40 98 11/27/23 02:45 86 23 88/61 99 50 11/27/23 02:30 85 15 89/48 98 11/27/23 02:15 84 21 96/43 97 11/27/23 02:02 84 21 96/43 98 11/27/23 01:45 90 14 93/46 97 11/27/23 01:30 85 21 101/46 99 11/27/23 01:15 87 29 H 102/46 99 50 11/27/23 01:00 85 23 97/41 98 11/27/23 00:45 80 18 84/42 99 11/27/23 00:30 80 24 90/41 99 11/27/23 00:19 50 11/27/23 00:16 85 20 90/41 98 11/27/23 00:15 85 30 H 96/49 99 11/27/23 00:00 98.8 F 85 23 98/46 97 50 11/26/23 23:45 86 22 102/50 98 11/26/23 23:30 85 12 106/53 11/26/23 23:15 85 31 H 88/45 11/26/23 23:00 80 15 100/50 99 50 11/26/23 22:45 80 14 103/51 99 11/26/23 22:30 85 42 H 108/52 98 11/26/23 22:15 85 17 99/54 98 50 11/26/23 22:00 81 15 109/60 99 11/26/23 21:45 87 17 104/53 96 11/26/23 21:30 81 20 109/54 99 11/26/23 21:15 98.9 F 87 10 L 96/49 95 50 11/26/23 21:00 80 31 H 101/58 95 11/26/23 20:45 81 25 H 99/59 97 11/26/23 20:30 82 19 99/49 94 L 11/26/23 20:15 85 23 88/54 95 11/26/23 20:10 83 11/26/23 20:00 83 26 H 93/48 96 50 11/26/23 19:45 83 21 104/54 94 L 11/26/23 19:30 86 15 99/56 96 11/26/23 19:15 85 20 106/55 99 11/26/23 19:00 86 18 103/57 97 11/26/23 18:45 84 18 105/53 99 11/26/23 18:30 85 24 112/54 96 11/26/23 18:15 80 15 107/41 97 11/26/23 18:00 79 19 105/50 97 11/26/23 17:45 78 22 107/45 96 11/26/23 17:30 80 16 108/52 97 11/26/23 17:15 81 18 102/55 98 11/26/23 17:00 82 25 H 99/52 97 11/26/23 16:45 82 20 86/41 97 11/26/23 16:30 87 25 H 99/46 97 11/26/23 16:24 91 11/26/23 16:15 90 22 101/44 96 11/26/23 16:04 89 50 11/26/23 16:00 98.6 F 88 18 97/61 96 50 11/26/23 15:45 92 25 H 103/52 96 11/26/23 15:30 92 26 H 83/53 97 11/26/23 15:15 90 24 83/46 96 11/26/23 15:00 91 23 96/47 96 11/26/23 14:45 92 23 91/55 96 11/26/23 14:30 92 23 86/49 98 11/26/23 14:15 93 14 93/47 97 11/26/23 14:00 96 14 88/54 98 11/26/23 13:45 95 19 90/46 96 11/26/23 13:30 96 26 H 88/48 96 11/26/23 13:15 96 27 H 95/59 95 11/26/23 13:00 97 22 96/56 95 11/26/23 12:45 100 22 96/55 95 11/26/23 12:30 100 20 97/30 95 11/26/23 12:15 98 16 102/60 94 L 11/26/23 12:00 98.9 F 99 21 105/56 94 L Intake and Output 11/26/23 11/27/23 11/27/23 22:59 06:59 14:59 Intake Total 3376.566 1918.640 879.768 Output Total 185 145 35 Balance 3191.566 1773.640 844.768 Intake: IV 2100 1100 500 Dextrose 5%-0.45% NaCl 1, 1000 1000 500 000 ml @ 125 mls/hr IV . Q8H [facility] Rx#:[id number] Lactated Ringers 1,000 ml 1000 @ 999 mls/hr IV .Q1H1M [facility] Rx#:[id number] Piperacillin-Tazobactam 3 100 100 .375 gm In Sodium Chloride 0.9% 100 ml @ 25 mls/hr IVPB Q8HR [facility] Rx# :[id number] Intake, IV Titration 316.566 383.640 379.768 Amount Norepinephrine 4 mg In 316.566 253.284 379.768 Sodium Chloride 0.9% 250 ml @ 0.03 MCG/KG/MIN 8. 744 mls/hr IV .Q24H [facility] Rx#:[id number] Vasopressin 60 unit In 130.356 Sodium Chloride 0.9% 150 ml @ 0.03 UNITS/MIN 4.59 mls/hr IV .Q24H [facility] Rx#: [id number] Oral 525 Tube Feeding 360 360 Other 75 75 Output: Urine 185 145 35 Other: Voiding Method Indwelling Catheter Indwelling Catheter patient is on the 100% nonrebreather. Blood pressure remains low Barely responsive Examination of the heart S1 and S2 Examination the lungs decreased breath sounds at the bases Abdomen is soft distended Examination of lower extremities shows chronic skin changes trace edema Results - Lab Results Most recent lab results ABG pH 7.37 (7.35-7.45) 11/26/23 09:21 ABG pCO2 58 mmHg (35-45) H 11/26/23 09:21 ABG pO2 61 mmHg (83-108) L 11/26/23 09:21 ABG HCO3 33 mmol/L (21-25) H 11/26/23 09:21 ABG O2 Saturation 90.0 % (94-97) L 11/26/23 09:21 Calcium 7.4 mg/dL (8.4-10.2) L 11/27/23 04:46 Magnesium 2.0 mg/dL (1.6-2.3) 11/19/23 10:30 11/27/23 04:46 11/27/23 04:46 Assessment and Plan Assessment: 1. Acute kidney injury, ATN, oliguric secondary to hypotension and sepsis 2. Acute hypoxic respiratory failure 3. sepsis from pneumonia versus abdominal source, maintained on antibiotics 4. Hypernatremia associated with free water deficit 5. Hyperkalemia associated with acute kidney injury Plan: change IV fluids to D5W Treat hyperkalemia with IV insulin Overall prognosis is guarded Recommend hospice/comfort care measures. Patient is not a candidate for renal replacement therapy. Thank you for the consultation.
--- NOTE | 2023-11-27 13:13 | P.PN ---
Progress Note - Text Progress Note Date: 11/27/23 Chief Complaint: Short of breath 73-year-old male patient with a known history of nonischemic cardiomyopathy, ventricular tachycardia with previous ablation, AICD placement, hyperlipidemia, former smoker, chronic obstructive pulmonary disease. Patient was in the hospital over a month ago. Admitted with COPD exacerbation, pill induced esophagitis, noted to have silent aspiration and a PEG tube was placed. Patient now presents with increasing shortness of breath. Bit altered mentation. Nonproductive cough. The last few days. At home about 2 L of nasal cannula. Symptoms became much worse this morning around 6 AM. Patient had to be placed on BiPAP. When I came to see this patient he was rather lethargic tired not really able to give much of a history. November 19: Patient still remains overflow in the ER room ED-1. More awake. On BiPAP. Spoke to the nurse to make sure the PEG tube feeding is started. Medications through the PEG tube. Patient does live with his and daughter. On IV cefepime, IV vancomycin. IV Solu-Medrol. Bronchodilators. Will send off nasopharyngeal MRSA swab. Short of breath. Tired. Additional information from cardiology notes: Cardiac catheterization February 2023: Stenting of proximal and mid LAD. 2D echo in April 2023: EF 30 to 35%. November 20: Breathing better. Up in a recliner. On nasal cannula 2 L. Patient daughter at the bedside. Discussed. She wishes patient to remain full code. Discussed with dietitian or Stephanie at the bedside. Plan to change to bolus feeding. Fluids continue to be restricted. For low sodium. November 21: 2D echo showed a left ventricular apical thrombus. Started on IV heparin. Breathing a bit better. Tolerating diet. Reclining in bed. Getting PEG tube bolus feeding November 22: Saw the patient earlier today. Daughter at the bedside. Discussed. Dry mouth. Tired. Tolerating PEG tube feeding. Started on Eliquis today. Some spotting of blood on the sputum. Watch closely. I discussed CODE STATUS with the daughter day before. Wants the patient to be full code. Patient's prognosis is rather guarded. November 23: Patient moved to the ICU yesterday. delirium from hypoxia, and hypercapnia. Doing better this morning. Tolerating tube feeding. On BiPAP 14/6/35%. Sinus rhythm. Tired. In bed. IV Zosyn November 24: Patient remained on BiPAP overnight. Tired. Back on nasal cannula this morning. Tolerating tube feeding. IV Zosyn. She some shortness of breath. Hypernatremia. Stop normal saline. Changed to D5.4 560 cc an hour. November 25: Patient became hypotensive overnight. Oxygenation decreased. On BiPAP. Blood gases showed pCO2 retention. Was put on Levophed. Vasopressin. Also spiked a fever to 101. On IV Zosyn. Blood cultures are pending. Patient is getting Jevity PEG tube boluses 4 times a day. Sodium is gone up to 155. Changing IV fluids to D5.45 at 125 an hour. Also free fluid through the PEG tube increased to 75 cc twice daily before and after bolus feeding. Patient daughter at the bedside. Did speak at length to her. Did explain to her that I spoke with her 3 days ago patient prognosis is guarded. ID consulted. November 26: ICU. Remains hypotensive shock. On vasopressin, Levophed. Dose of Levophed doubled since this morning. On BiPAP. 14/6/50%. Does open eyes to lethargic. Tube feeding was held as residuals increased to 500 cc. Blood pressure running around 90-80 systolic. IV Zosyn. Generalized swelling. Oozfred lopez from skin. Patient is both the daughters and and Radha spoke to them at length about patient's very poor prognosis. We agreed to make the patient no code. Also agreeable for informational visit with hospice. Patient continues to do poorly. Active Medications Acetaminophen (Acetaminophen Tab 500 Mg Tab) 500 mg PO Q6HR PRN PRN Reason: Fever and/ or Pain Last Admin: 11/26/23 08:02 Dose: 500 mg Albuterol/Ipratropium (Ipratropium-Albuterol 3 Ml Neb) 3 ml INHALATION RT-Q2H PRN PRN Reason: Shortness Of Breath Or Wheezing Last Admin: 11/20/23 08:45 Dose: 3 ml Amiodarone HCl (Amiodarone 200 Mg Tab) 200 mg PO DAILY@1000 JOSE MIGUEL Last Admin: 11/26/23 10:09 Dose: 200 mg Apixaban (Apixaban 5 Mg Tab) 5 mg PO BID JOSE MIGUEL; Protocol Last Admin: 11/27/23 11:48 Dose: Not Given Aspirin (Aspirin 81 Mg) 81 mg PO HS@2200 JOSE MIGUEL Last Admin: 11/26/23 21:33 Dose: 81 mg Atorvastatin Calcium (Atorvastatin 80 Mg Tab) 80 mg PO HS@2200 JOSE MIGUEL Last Admin: 11/26/23 21:33 Dose: 80 mg Dapagliflozin (Dapagliflozin Propanediol 5 Mg Tablet) 5 mg PO DAILY [facility] Last Admin: 11/27/23 08:00 Dose: 5 mg Dextrose/Water (Dextrose 50% Syringe 50 Ml) 25 ml IVP PER PROTOCOL PRN; Protocol PRN Reason: Hypoglycemia Dextrose/Water (Dextrose 50% Syringe 50 Ml) 50 ml IVP PER PROTOCOL PRN; Protocol PRN Reason: Hypoglycemia Ezetimibe (Ezetimibe 10 Mg Tab) 10 mg PO DAILY@1000 JOSE MIGUEL Last Admin: 11/26/23 10:09 Dose: 10 mg Piperacillin Sod/Tazobactam (Sod 3.375 gm/ Sodium Chloride) 100 mls @ 25 mls/hr IVPB Q8HR [facility] MIGUEL; Protocol Last Admin: 11/27/23 07:59 Dose: 25 mls/hr Norepinephrine Bitartrate 4 mg (/ Sodium Chloride) 254 mls @ 8.744 mls/hr IV .Q24H JOSE MIGUEL; Protocol Last Titration: 11/27/23 11:44 Dose: 0.29 mcg/kg/min, 84.525 mls/hr Vasopressin 60 unit/ Sodium (Chloride) 153 mls @ 4.59 mls/hr IV .Q24H JOSE MIGUEL; Protocol Last Admin: 11/27/23 04:33 Dose: 0.03 units/min, 4.59 mls/hr Dextrose/Water (Dextrose 5%-Water Iv Soln) 1,000 mls @ 125 mls/hr IV .Q8H JO[facility] MIGUEL Last Admin: 11/27/23 11:19 Dose: 125 mls/hr Insulin Aspart (Insulin Aspart (Novolog) 100 Unit/Ml Vial) 0 unit SQ Q6HR JOSE MIGUEL; Protocol Last Admin: 11/27/23 06:14 Dose: 4 unit Insulin Detemir (Insulin Detemir (Levemir) 100 Unit/Ml Syr) 12 unit SQ HS [facility] Last Admin: 11/26/23 21:34 Dose: 12 unit Iopamidol (Iopamidol Contrast (Oral Use) Vial) 30 ml PO Q60M PRN PRN Reason: CT Scan Stop: 11/27/23 22:58 Methylprednisolone Sodium Succinate (Methylprednisolone Sod Succi 40 Mg/Ml 1 Ml Vial) 40 mg IV Q8H [facility] Last Admin: 11/27/23 07:59 Dose: 40 mg Metoprolol Tartrate (Metoprolol Tartrate 25 Mg Tab) 25 mg PO BID [facility] Last Admin: 11/27/23 07:59 Dose: Not Given Mexiletine HCl (Mexiletine 200 Mg Cap) 200 mg PO TID@0600,1400,2200 [facility] Last Admin: 11/27/23 06:58 Dose: 200 mg Montelukast Sodium (Montelukast 10 Mg Tab) 10 mg PO DAILY@1000 [facility] Last Admin: 11/26/23 10:09 Dose: 10 mg Naloxone HCl (Naloxone 0.4 Mg/Ml 1 Ml Vial) 0.2 mg IV Q2M PRN PRN Reason: Opioid Reversal Levalbuterol 1.25 Mg Inhaled Solution Neb 1 puff INHALATION RT-Q6H PRN PRN Reason: Shortness Of Breath Last Admin: 11/24/23 08:52 Dose: 1 puff Levalbuterol Nebulized 1.25 Mg/3 Ml Nebule 1.25 mg INHALATION RT-QID [facility] Last Admin: 11/27/23 12:45 Dose: 1.25 mg Psyllium Hydrophilic Mucilloid (Psyllium Husk 100% 6 Gm Packet) 6 gm PO BID@1000,2200 [facility] Last Admin: 11/26/23 21:34 Dose: 6 gm Sacubitril/Valsartan (Sacubitril/Valsartan 24 Mg-26 Mg Tablet) 1 each PO HS [facility] Last Admin: 11/26/23 20:32 Dose: Not Given Social history: Lives with his and daughter. Smoked for 20 years 4 to 5 cigarettes a day stopped at the age of 38. No alcohol. Physical examination: VITAL SIGNS: 99, 90, 22, 91/44, BiPAP 50% GENERAL: Reclining in bed, lethargic. Bruising on both extremities. Edema, oozing at places. EYES: Pupils equal. Conjunctiva dilma l. HEENT: External appearance of nose and ears normal, oral cavity-dry mucous membranes NECK: JVD able to assess; masses not palpable. HEART: First and second heart sounds are normal; no edema. LUNGS: Respiratory rate increased; decreased breath sounds. ABDOMEN: Soft, nontender, liver spleen not palpable, no masses palpable. PEG tube PSYCH: Lethargic MUSCULOSKELETAL:No Clubbing/cyanosis;muscles-grossly intact INVESTIGATIONS, reviewed in the clinical context: November 26: White count 29.6 hemoglobin 7.5 platelets 180 sodium 151 potassium 5.8 BUN 109 creatinine 1.80 procalcitonin 0.84 November 25: White count was 38.7 hemoglobin 9.5 platelets 245 sodium 135 potassium 5.2 creatinine 1.02. ABG: pH 7.37 pCO2 58 pO2 61 November 24: White count 20.2 hemoglobin 10.3 sodium 152 creatinine 0.71 November 23: White count 19.5 hemoglobin 10.6 potassium 4.5 BUN 50 creatinine 0.61 Limited 2D echocardiogram: Probable left ventricle apical thrombus. EF 30 to 35% Lumbar spine CT: Foraminal stenosis at L5-S1 and severe and L4-L5 November 21: White count 18.1 hemoglobin 10.5 platelets 241 potassium 4.3 creatinine 0.52 November 19: White count 26.2 hemoglobin 10.9 platelets 234 sodium 137 potassium 5 BUN 18 creatinine 0.53. Procalcitonin 1.11 November 18: White count 32.9 hemoglobin 14 platelets were 82 sodium 124 potassium 4.7 BUN 17 creatinine 0.45 Troponin I 0.012 ammonia less than 9 proBNP 1350 UA: Negative Influenza type A, B, RSV, COVID-19: Not detected ABG: pH 7.4 pCO2 58 pO2 62 EKG tracing personally reviewed by me-intraventricular conduction delay. Sinus rhythm. Chest x-ray film personally reviewed by me-cardiomegaly. Cannot rule out infiltrate Chest CTA: Negative for PE Assessment: -Acute asthma/COPD, in a [id number], causing respiratory failure: Not improving Xopenex. DuoNeb as needed IV Solu-Medrol 40 mg every 8. -Hypernatremia, free water deficit: Slow to respond g D5W, at, 125 cc an hour. -Hypotensive and septic shock: Worsening IV Levophed was increased since this morning IV vasopressin -Acute metabolic/hypoxic encephalopathy on presentation: Not improving -Left ventricular thrombus, Eliquis -Sepsis with spiking fever. IV Zosyn. Cultures pending ID following -Suspicious of bilateral basilar pneumonia suspect gram-negative organism: Better IV Zosyn -Acute on chronic hypoxic and hypercapnic respiratory failure: Slow to respond On BiPAP 50% - PEG tube placement on 10/15/2023. NPO by mouth Dysphagia with silent aspiration noted on modified barium swallow, High residual-tube feeding held today -Left vertebral artery stenosis history -Essential hypertension-currently hypotensive shock Entresto, Lopressor, -Left thyroid nodule measuring 2.9 cm, was to be followed up in the outpatient setting from last admission -Nonischemic cardiomyopathy/chronic congestive heart failure, EF 30-35% from April 2023 Entresto. Lopressor-hold. -CAD, with stent to LAD in February 2023 Aspirin. Lipitor. Plavix. - AICD-history of ventricular tachycardia status post ablation, status post -History of previous ventilatory dependent respiratory failure secondary to COPD exacerbations -History of brain hemorrhage while on blood thinners -DO NOT RESUSCITATE CODE STATUS changed to DNR. Increased dose of Levophed and on vasopressin. IV Zosyn. Blood pressure running low. Tube feeding held. Doing poorly. Advance care planning [November 27, 2023]: Discussed with patient's daughter Tyshawn at the bedside. Patient's overall condition was discussed. Patient not doing well. Lot of pressor support. Hypoalbuminemia. Sepsis picture. Failing renal function. Poor respiratory status. They have decided to proceed with DNR CODE STATUS. They are considering comfort measures. They have excepted informational visit for hospice in the meantime. Questions answered. Nurse was present. Time spent about 35 minutes for ACP Past Medical History Past Medical History: Asthma, COPD, Hyperlipidemia Additional Past Medical History / Comment(s): VTach, nonischemic cardiomyopathy, CHF, organized left ventricular apical clot, previous DVT ablation, asthma requiring intubation twice, BRAIN BLEED WHILE ON BLOOD THINNER RX 2009, cataracts bilaterally History of Any Multi-Drug Resistant Organisms: None Reported Past Surgical History: AICD, EPS, Pacemaker Additional Past Surgical History / Comment(s): 12/07/15 EPS [facility] [place] ablation. Other surgical hx: BRAIN SURGERY FOLLOWING BLEED. AICD/PACEMAKER, [facility]. generator change, Defibrilator testing Past Anesthesia/Blood Transfusion Reactions: No Reported Reaction Type of Cardiac Device: Permanent Pacemaker, AICD Device Placement Date:: 2005 implanted with gen change 2012 Past Psychological History: No Psychological Hx Reported Smoking Status: Never smoker Past Alcohol Use History: None Reported Past Drug Use History: None Reported
[2023-11-27] MEDS: INSULIN REGULAR 100 UNIT/ML VIAL (IV) IV ONE (13:15)
--- NOTE | 2023-11-27 14:36 | PN ---
PROGRESS NOTE SUBJECTIVE: Surendra is a 73-year-old gentleman who is in the intensive care unit secondary to respiratory failure. His condition has deteriorated significantly. Last night he seemed more unresponsive. Current medications include amiodarone 200 mg daily, Eliquis 5 b.i.d., aspirin, Lipitor, Zetia, Lopressor. He is currently on IV antibiotics and is developing worsening renal dysfunction and further drop in his urine output. The patient received lactated Ringer following a drop in his urine output with some improvement, but no significant change. His BUN is elevated at 109 and the creatinine is 1.8. Sodium is high, potassium is high, and his hemoglobin is 7.5. I am consulting Nephrology for their input. OBJECTIVE: VITAL SIGNS: Heart rate is 80 beats per minute, blood pressure is 91/40, respiratory rate is 18. The patient is on a BiPAP with an FiO2 of 50%. CHEST: Reveals occasional rhonchi with diminished air entry bilaterally. HEART: Reveals first and second heart sounds and a systolic murmur at the apex. ABDOMEN: Soft. EXTREMITIES: Revealed mild edema bilaterally. ASSESSMENT: 1. Ventricular tachycardia. 2. Apical thrombus. 3. Ischemic cardiomyopathy. 4. Renal failure. 5. Hypotension. PLAN: We will consult Nephrology. Continue supportive care. Prognosis guarded. MMODL / IJN: [id number] /
--- NOTE | 2023-11-27 14:41 | P.PN ---
Subjective Progress Note Date: 11/27/23 Principal diagnosis: Reason for follow-up is sepsis Patient is a 73-year-old male past medical his significant for COPD hyperlipidemia nonischemic cardiomyopathy CHF history of brain bleed presented to the hospital on 11/19/2023 for evaluation of difficulty in breathing, patient started having fever prompting this consultation on 11/26/2023. On today's visit that is 11/27/2023, patient did have improvement in his fever pattern and is afebrile this morning patient is still requiring high-dose pressor support as reported by the nursing staff patient is currently on BiPAP with a 50% FiO2 patient has not been tolerating his tube feeding has been put on hold and no diarrhea has been reported. Patient white count is down to 29.6, and a creatinine 1.80 blood cultures pe nding Objective - Vital Signs Vital signs: Vital Signs Temp 99.0 F 11/27/23 08:00 Pulse 85 11/27/23 12:57 Resp 19 11/27/23 12:57 BP 91/46 11/27/23 11:45 Pulse Ox 98 11/27/23 10:45 FiO2 50 11/27/23 12:49 Intake & Output 11/26/23 11/27/23 11/27/23 18:59 06:59 18:59 Intake Total 4439.218 2881.269 879.768 Output Total 1245 235 35 Balance 3194.218 2646.269 844.768 Intake: IV 2330 1475 500 Dextrose 5%-0.45% NaCl 1, 1130 1375 500 000 ml @ 125 mls/hr IV . Q8H [facility] Rx#:[id number] Lactated Ringers 1,000 ml 1000 @ 999 mls/hr IV .Q1H1M ONE Rx#:[id number] Piperacillin-Tazobactam 3 200 100 .375 gm In Sodium Chloride 0.9% 100 ml @ 25 mls/hr IVPB Q8HR [facility] Rx# :[id number] Intake, IV Titration 504.218 536.269 379.768 Amount Dextrose 5%-0.45% NaCl 1, 60 000 ml @ 125 mls/hr IV . Q8H [facility] Rx#:[id number] Norepinephrine 4 mg In 444.218 405.913 379.768 Sodium Chloride 0.9% 250 ml @ 0.03 MCG/KG/MIN 8. 744 mls/hr IV .Q24H [facility] Rx#:[id number] Vasopressin 60 unit In 130.356 Sodium Chloride 0.9% 150 ml @ 0.03 UNITS/MIN 4.59 mls/hr IV .Q24H JOSE MIGUEL Rx#: [id number] Oral 1605 Tube Feeding 720 Other 150 Output: Urine 1245 235 35 Other: Voiding Method Indwelling Catheter Indwelling Catheter # Bowel Movements 0 - Exam GENERAL DESCRIPTION: An elderly male lying in bed in no distress RESPIRATORY SYSTEM: Unlabored breathing , decreased breath sounds at bases HEART: S1 S2 regular rate and rhythm , ABDOMEN: Soft , mild distention - Labs CBC & Chem 7: 11/27/23 04:46 11/27/23 04:46 Labs: Abnormal Lab Results - Last 24 Hours (Table) 11/26/23 11/26/23 11/27/23 Range/Units 17:12 23:30 02:49 WBC (3.8-10.6) k/uL RBC (4.30-5.90) m/uL Hgb (13.0-17.5) gm/dL Hct (39.0-53.0) % MCV (80.0-100.0) fL MCHC (31.0-37.0) g/dL RDW (11.5-15.5) % Neutrophils # (Manual) (1.3-7.7) k/uL Lymphocytes # (Manual) (1.0-4.8) k/uL Nucleated RBCs (0-0) /100 WBC Macrocytosis Sodium (137-145) mmol/L Potassium (3.5-5.1) mmol/L Chloride (98-107) mmol/L BUN (9-20) mg/dL Creatinine (0.66-1.25) mg/dL Glucose (74-99) mg/dL POC Glucose (mg/dL) 166 H 190 H 227 H (70-110) mg/dL Calcium (8.4-10.2) mg/dL C-Reactive Protein (<1.0) mg/dL Procalcitonin (0.02-0.09) ng/mL 11/27/23 11/27/23 11/27/23 Range/Units 04:46 04:46 04:46 WBC 29.6 H (3.8-10.6) k/uL RBC 2.37 L (4.30-5.90) m/uL Hgb 7.5 L D (13.0-17.5) gm/dL Hct 25.0 L (39.0-53.0) % MCV 105.5 H (80.0-100.0) fL MCHC 30.2 L (31.0-37.0) g/dL RDW 17.3 H (11.5-15.5) % Neutrophils # (Manual) 24.20 H (1.3-7.7) k/uL Lymphocytes # (Manual) 5.33 H (1.0-4.8) k/uL Nucleated RBCs 1 H (0-0) /100 WBC Macrocytosis Marked A Sodium 151 H (137-145) mmol/L Potassium 5.8 H (3.5-5.1) mmol/L Chloride 120 H (98-107) mmol/L BUN 109 H* (9-20) mg/dL Creatinine 1.80 H (0.66-1.25) mg/dL Glucose 198 H (74-99) mg/dL POC Glucose (mg/dL) (70-110) mg/dL Calcium 7.4 L (8.4-10.2) mg/dL C-Reactive Protein 6.4 H (<1.0) mg/dL Procalcitonin 0.84 H (0.02-0.09) ng/mL 11/27/23 11/27/23 Range/Units 06:12 11:08 WBC (3.8-10.6) k/uL RBC (4.30-5.90) m/uL Hgb (13.0-17.5) gm/dL Hct (39.0-53.0) % MCV (80.0-100.0) fL MCHC (31.0-37.0) g/dL RDW (11.5-15.5) % Neutrophils # (Manual) (1.3-7.7) k/uL Lymphocytes # (Manual) (1.0-4.8) k/uL Nucleated RBCs (0-0) /100 WBC Macrocytosis Sodium (137-145) mmol/L Potassium (3.5-5.1) mmol/L Chloride (98-107) mmol/L BUN (9-20) mg/dL Creatinine (0.66-1.25) mg/dL Glucose (74-99) mg/dL POC Glucose (mg/dL) 233 H 170 H (70-110) mg/dL Calcium (8.4-10.2) mg/dL C-Reactive Protein (<1.0) mg/dL Procalcitonin (0.02-0.09) ng/mL Microbiology - Last 24 Hours (Table) 11/25/23 17:14 Blood Culture - Preliminary Blood 11/25/23 17:14 Blood Culture - Preliminary Blood 11/25/23 16:35 Urine Culture - Final Urine,Catheterized Assessment and Plan (1) Sepsis Current Visit: Yes Status: Acute Code(s): A41.9 - SEPSIS, UNSPECIFIED ORGANISM SNOMED Code(s): 38320011 Plan: 1patient with sepsis in this patient who did have a fever elevated white count hypotension requiring pressor support predominantly respiratory symptoms with left lower lobe atelectasis versus pneumonia to be the likely concern patient however was noticed to be slightly tender on abdominal examination underlying abdominal source not entirely excluded 2-blood culture currently pending patient did have a CRP of 6.4 a Pro-Navdeep of 0.84 3- CT of abdominal pelvis with oral contrast to rule out intra-abdominal pathology has been canceled per strategic consultant as the patient has been considered to be too unstable to go for CT as reported by the nursing staff 4-for now continue with Zosyn 3.375 grams every 8 hours and monitor clinical course closely Family at the bedside question concern answered Dictation was produced using [employer] dictation software. please excuse any grammatical, word or spelling errors. Time with Patient: Less than 30
--- NOTE | 2023-11-27 15:53 | XR ---
EXAMINATION TYPE: XR chest 1V confirm line [facility] DATE OF EXAM: 11/27/2023 3:48 PM CLINICAL INDICATION:Male, 73 years old with history of central line insertion; COMPARISON: Chest radiographs from 11/27/2023 TECHNIQUE: XR chest 1V confirm line plcmt Frontal view of the chest. FINDINGS: Lungs/Pleura: Improved airspace opacities projecting over the heart. There is no evidence of pleural effusion, focal consolidation, or pneumothorax. Pulmonary vascularity: Unremarkable. Heart/mediastinum: Cardiomediastinal silhouette is unremarkable. Two lead cardiac conduction device o verlying the left hemithorax with lead tips projecting over the right ventricle and right atrium. Musculoskeletal: No acute osseous pathology. Left central venous catheter with tip terminating in the superior vena cava. IMPRESSION: Left central venous catheter with tip terminating in the superior vena cava. Airspace opacities project over the heart which are improved from earlier radiograph.
[2023-11-27] MEDS: NOREPINEPHRINE 8 MG in SODIUM CHLORIDE 0.9% 250 ML IV SCH (18:31)
[2023-11-27 18:40] LABS: Anisocytosis Slight; HCT 22.1 % (39.0-53.0); Hypochromasia Marked; MCH 31.1 pg (25.0-35.0); MCHC 29.1 g/dL (31.0-37.0); MCV 106.9 fL (80.0-100.0); Macrocytosis Marked; Mean Platelet Volume 10.8; Platelet Count 165 k/uL (150-450); RBC 2.07 m/uL (4.30-5.90); RDW 17.2 % (11.5-15.5); WBC 29.8 k/uL (3.8-10.6)
[2023-11-27 18:47] LABS: HGB 6.4 gm/dL (13.0-17.5)
--- NOTE | 2023-11-27 20:03 | PCN ---
PROCEDURE NOTE PULMONARY/CRITICAL CARE PROCEDURE NOTE: PROCEDURE PERFORMED: Left internal jugular triple-lumen catheter. PREOPERATIVE DIAGNOSES: Administration of fluids and pressors, hypotension. POSTOPERATIVE DIAGNOSES: Administration of fluids and pressors, hypotension. FIRST APPLICATION SUPPORT LEAD: Dr. Sonali Colón. TRIPLE LUMEN CATHETER PLACEMENT: Indication: Hemodynamic monitoring/Intravenous access. A time-out was completed verifying correct patient, procedure, site, positioning, and implant(s) or special equipment if applicable. The patient was placed in a dependent position appropriate for triple lumen catheter placement based on the vein to be cannulated. The patient's left shoulder or left neck or left groin was prepped and draped in sterile fashion. 1% Lidocaine was used to anesthetize the surrounding skin area. A triple lumen 9F Cordis catheter was introduced into the left internal jugular vein using Seldinger technique. The catheter was threaded smoothly over the guide wire and appropriate blood return was obtained. Each lumen of the catheter was evacuated of air and flushed with sterile saline. The catheter was then sutured in place to the skin and a sterile dressing applied. Perfusion to the extremity distal to the point of catheter insertion was checked and found to be adequate. We went via the posterior approach. There was good blood return from all 3 ports. The patient tolerated the procedure well. There was no immediate complication. The catheter was sutured in place. Sterile dressing was applied by the nurse. The tip of catheter was seen in the junction between the superior vena cava and right atrium. A chest x-ray had been ordered. Again, there was no immediate complication. The patient tolerated the procedure well. MMODL / IJN: [id number] /
[2023-11-27 22:43] LABS: Glucose,Whole Blood 253 mg/dL (70-110)
[2023-11-27 22:43] LABS: Glucose,Whole Blood 291 mg/dL (70-110)
[2023-11-28 01:02] LABS: Glucose,Whole Blood 215 mg/dL (70-110)
[2023-11-28 03:31] VITALS: TEMP 97.8
[2023-11-28 05:20] LABS: Anisocytosis Slight; HCT 27.5 % (39.0-53.0); Hypochromasia Marked; MCH 30.9 pg (25.0-35.0); MCHC 29.6 g/dL (31.0-37.0); MCV 104.2 fL (80.0-100.0); Macrocytosis Marked; Mean Platelet Volume 10.5; Platelet Count 152 k/uL (150-450); Poikilocytosis Slight; RBC 2.64 m/uL (4.30-5.90); RDW 19.2 % (11.5-15.5); WBC 26.4 k/uL (3.8-10.6)
[2023-11-28 05:21] LABS: HGB 8.2 gm/dL (13.0-17.5)
[2023-11-28 05:34] LABS: African American GFR (CKD) 25 (>60 ml/min/1.73 sqM); Anion Gap 8 mmol/L; Calcium 7.4 mg/dL (8.4-10.2); Carbon Dioxide 20 mmol/L (22-30); Chloride 117 mmol/L (98-107); Glucose 170 mg/dL (74-99); Non-African American GFR(CKD) 22 (>60 ml/min/1.73 sqM); Sodium 145 mmol/L (137-145)
[2023-11-28] MEDS ORDERED: MORPHINE SULFATE 2 MG/ML SYRINGE IVP ONE (05:38)
[2023-11-28] MEDS ORDERED: SCOPOLAMINE 1 MG/72 HR PATCH TRANSDERM SCH (05:45)
[2023-11-28 06:00] LABS: Blood Urea Nitrogen 125 mg/dL (9-20); Potassium 6.7 mmol/L (3.5-5.1)
[2023-11-28] MEDS: MORPHINE SULFATE (100 MG/2 ML) 100 MG in SODIUM CHLORIDE 0.9% 100 ML IV SCH (06:16)
[2023-11-28 06:52] LABS: Anisocytosis (M) Present; Band Neutrophils % 19 %; Hypochromasia (M) Present; Lymphocytes # (M) 5.28 k/uL (1.0-4.8); Monocytes # (M) 0.26 k/uL (0-1.0); Neutrophils % (M) 60 %; Nucleated Red Blood Cells 0 /100 WBC (0-0); Total Cells Counted 100
--- NOTE | 2023-11-28 07:48 | XR ---
EXAMINATION TYPE: XR chest 1V portable DATE OF EXAM: 11/28/2023 HISTORY: Shortness of breath. COMPARISON: 11/27/2023 TECHNIQUE: Single view of the chest is submitted. FINDINGS: Demonstrated are scattered senescent parenchymal change. Stable patchy basilar density left greater than right felt to reflect a pneumonia. Follow-up until re solution advised. The heart is stable. Hilar and mediastinal structures are within normal limits. Degenerative changes are seen of the dorsal spine. IMPRESSION: 1. Stable patchy basilar density left greater than right felt to reflect a pneumonia. Follow-up unti l resolution advised.
[2023-11-28 08:37] VITALS: BP 64/31; PULSE 0; RESP 0
--- NOTE | 2023-11-28 10:14 | P.PN ---
Subjective Progress Note Date: 11/27/23 11/27/2023: Patient was seen for a follow-up. Patient's 2 daughters were present today. Patient currently on norepinephrine 0.32 mcg/kg/min, also on vasopressin 0.03 units/min. Patient is very encephalopathic. He has some bleeding from the left IJ site. Nurse is addressing that. Patient on BiPAP. 11/26/2023: Patient was seen for a follow-up. Patient has BiPAP on. Patient's blood pressure has been running low. Patient is on pressors, including Levophed 0.14 mcg/kg/min, also on vasopressin 0.03 units/min. Patient is still full code. Patient's daughter is coming out of state to make further decisions. 11/25/2023: Patient initially seen by Dr. Gee Chatman. Please refer to his note for details. Patient is a 73-year-old male with altered mental status, likely due to metabolic encephalopathy. Patient has chronic lower back pain with left foot drop. Recommend EMG nerve conductions outpatient. Patient was seen for a follow-up. Patient is laying in the bed, has BiPAP on. Patient is currently on Zosyn and IV fluids. Per nursing report, patient answers appropriately. He is slightly confused at times. Some of the work-up during this hospital visit consisted of: Initial pulse ox is 91% liters on BiPAP currently it's improved and he is on 2 L of nasal cannula. His sodium is 124 and the repeated one is 127. CT of the head is reported as no acute intracranial process. Microangiopathic. Evidence of previous darshan hole. I personally reviewed this to the head and I agree there is no acute subacute ischemia. Patient seems to have left frontal encephalomalacia. Which was seen on prior CTs at least since January 2023. 2-D echo was reported as severely dilated left ventricular cavity. Ejection fraction of 15-20%. Apical thrombus appreciated in the left ventricle cavity. CT lumbar: reported as no evidence for spinal fracture. Severe degenerative changes of the spine with neural foraminal stenosis worse at L5-S1 severe left, L4-L5 severe right. Objective - Vital Signs Vital signs: Vital Signs Temp 98.4 F 11/27/23 16:30 Pulse 82 11/27/23 17:45 Resp 14 11/27/23 17:45 BP 114/41 11/27/23 17:45 Pulse Ox 97 11/27/23 17:15 FiO2 50 11/27/23 16:47 Intake & Output 11/26/23 11/27/23 11/27/23 18:59 06:59 18:59 Intake Total 4439.218 2881.269 1879.768 Output Total 1245 235 60 Balance 3194.218 2646.269 1819.768 Intake: IV 2330 1475 550 Dextrose 5%-0.45% NaCl 1, 1130 1375 500 000 ml @ 125 mls/hr IV . Q8H [facility] Rx#:[id number] Lactated Ringers 1,000 ml 1000 @ 999 mls/hr IV .Q1H1M [facility] Rx#:[id number] Piperacillin-Tazobactam 3 200 100 50 .375 gm In Sodium Chloride 0.9% 100 ml @ 25 mls/hr IVPB Q8HR [facility] Rx# :[id number] Intake, IV Titration 504.218 208.709 5850.768 Amount Dextrose 5% in Water 1, 875 000 ml @ 125 mls/hr IV . Q8H [facility] Rx#:[id number] Dextrose 5%-0.45% NaCl 1, 60 000 ml @ 125 mls/hr IV . Q8H [facility] Rx#:[id number] Norepinephrine 4 mg In 444.218 405.913 379.768 Sodium Chloride 0.9% 250 ml @ 0.03 MCG/KG/MIN 8. 744 mls/hr IV .Q24H [facility] Rx#:[id number] Vasopressin 60 unit In 130.356 Sodium Chloride 0.9% 150 ml @ 0.03 UNITS/MIN 4.59 mls/hr IV .Q24H [facility] Rx#: [id number] Oral 1605 Tube Feeding 720 Other 150 75 Output: Urine 1245 235 60 Other: Voiding Method Indwelling Catheter Indwelling Catheter Indwelling Catheter # Bowel Movements 0 - Exam Patient is somnolent, slightly encephalopathic today. He does open his eyes and makes eye contact. Patient is following directions to some extent. Patient has BiPAP on, therefore speech functions not able to be assessed. On cranial examination, his pupils are equal, round and reacting. Extraocular muscles are intact. Patient's strength with mica plate layer 4+/4+, ankle dorsiflexion 4+/0. Patient has left foot drop. Unclear cause. Rest of the examination not able to be performed because of his mentation and generalized weakness. Patient has a lot of bruises. - Labs CBC & Chem 7: 11/28/23 04:54 11/28/23 04:54 Labs: Abnormal Lab Results - Last 24 Hours (Table) 11/26/23 11/27/23 11/27/23 Range/Units 23:30 02:49 04:46 WBC 29.6 H (3.8-10.6) k/uL RBC 2.37 L (4.30-5.90) m/uL Hgb 7.5 L D (13.0-17.5) gm/dL Hct 25.0 L (39.0-53.0) % MCV 105.5 H (80.0-100.0) fL MCHC 30.2 L (31.0-37.0) g/dL RDW 17.3 H (11.5-15.5) % Neutrophils # (Manual) 24.20 H (1.3-7.7) k/uL Lymphocytes # (Manual) 5.33 H (1.0-4.8) k/uL Nucleated RBCs 1 H (0-0) /100 WBC Macrocytosis Marked A Sodium (137-145) mmol/L Potassium (3.5-5.1) mmol/L Chloride (98-107) mmol/L BUN (9-20) mg/dL Creatinine (0.66-1.25) mg/dL Glucose (74-99) mg/dL POC Glucose (mg/dL) 190 H 227 H (70-110) mg/dL Calcium (8.4-10.2) mg/dL C-Reactive Protein (<1.0) mg/dL Procalcitonin (0.02-0.09) ng/mL 11/27/23 11/27/23 11/27/23 Range/Units 04:46 04:46 06:12 WBC (3.8-10.6) k/uL RBC (4.30-5.90) m/uL Hgb (13.0-17.5) gm/dL Hct (39.0-53.0) % MCV (80.0-100.0) fL MCHC (31.0-37.0) g/dL RDW (11.5-15.5) % Neutrophils # (Manual) (1.3-7.7) k/uL Lymphocytes # (Manual) (1.0-4.8) k/uL Nucleated RBCs (0-0) /100 WBC Macrocytosis Sodium 151 H (137-145) mmol/L Potassium 5.8 H (3.5-5.1) mmol/L Chloride 120 H (98-107) mmol/L BUN 109 H* (9-20) mg/dL Creatinine 1.80 H (0.66-1.25) mg/dL Glucose 198 H (74-99) mg/dL POC Glucose (mg/dL) 233 H (70-110) mg/dL Calcium 7.4 L (8.4-10.2) mg/dL C-Reactive Protein 6.4 H (<1.0) mg/dL Procalcitonin 0.84 H (0.02-0.09) ng/mL 11/27/23 Range/Units 11:08 WBC (3.8-10.6) k/uL RBC (4.30-5.90) m/uL Hgb (13.0-17.5) gm/dL Hct (39.0-53.0) % MCV (80.0-100.0) fL MCHC (31.0-37.0) g/dL RDW (11.5-15.5) % Neutrophils # (Manual) (1.3-7.7) k/uL Lymphocytes # (Manual) (1.0-4.8) k/uL Nucleated RBCs (0-0) /100 WBC Macrocytosis Sodium (137-145) mmol/L Potassium (3.5-5.1) mmol/L Chloride (98-107) mmol/L BUN (9-20) mg/dL Creatinine (0.66-1.25) mg/dL Glucose (74-99) mg/dL POC Glucose (mg/dL) 170 H (70-110) mg/dL Calcium (8.4-10.2) mg/dL C-Reactive Protein (<1.0) mg/dL Procalcitonin (0.02-0.09) ng/mL Microbiology - Last 24 Hours (Table) 11/25/23 17:14 Blood Culture - Preliminary Blood 11/25/23 17:14 Blood Culture - Preliminary Blood 11/25/23 16:35 Urine Culture - Final Urine,Catheterized Assessment and Plan Assessment: This is a 73-year-old gentleman who presented because of hypoxia with a pulse ox of 88% with confusion. He was also found to have hyponatremia as well. Altered mental status due to metabolic encephalopathy as well as hypoxic encephalopathy--mentation improved. CT of the head is negative for any acute or subacute stroke Hyponatremia as low as 124, but now patient is hypernatremic with sodium 155. New onset spiking temperature, with Tmax 101.3, with leukocytosis, possible seps is. Apical thrombus on left ventricle, on Eliquis Left foot drop going on for months with ongoing chronic lower back pain. Chronic low back pain and on CT lumbar has neural foraminal stenosis worse at L5-S1 severe left, L4-L5 severe right Dysphagia status post PEG tube placement last admission on 10/15/2023 History of subdural hematoma status post bur hole craniotomy in 2009. It was related to blood thinners. History of nonischemic cardiomyopathy as well as congestive heart farther status post AICD History of COPD Macrocytic anemia Plan: Patient appears to be more encephalopathic. Patient initially had hyponatremia but now hypernatremic. It was 155 yesterday, but today 151 better. Will defer to IM/critical care. Patient has macrocytic anemia. B12 885, folate 13.90. B6 8, MMA pending. His last B12 was low 227 on 07/13/2023. Patient was not on any B12 replacement at home. Hemoglobin A1c 6.0. CT lumbar has neural foraminal stenosis worse at L5-S1 severe left, L4-L5 severe right with chronic low back pain. May follow-up with Orthopedic team as outpatient. EMG with nerve conduction study as an outpatient of the [facility] to rule out any radiculopathy or neuropathy, or motor neuron disease. Regarding his dysphagia and further workup of his left foot drop recommend the patient to follow-up with a neurologist as an outpatient. They will attempt to follow-up with Dr. Parks. Need to rule out ALS. Patient has an apical thrombus over the left ventricle, and patient started on Eliquis 5 mg twice daily. Also on aspirin 81 mg daily, and Lipitor 80 mg daily. Patient is critically sick. Neurologically patient is stable. He is more sick from medical standpoint. Discussed with patient's daughters. We'll defer the rest of the medical management to the primary and other specialists
--- NOTE | 2023-11-28 16:06 | P.DS ---
Providers Date of admission: 11/19/23 14:19 Expected date of discharge: 11/28/23 Attending physician: Trey Doshi Consults: 11/19/23 11:26 Consult Physician Routine Consulting Provider: Irving Olson Consult Reason/Comments: copd, bipap Do you want consulting provider notified?: Already Contacted 11/19/23 14:19 Consult Physician Routine Consulting Provider: Gee Chatman Consult Reason/Comments: ams Do you want consulting provider notified?: Yes 11/19/23 20:34 Consult Physician Routine Consulting Provider: Kayden Marina Consult Reason/Comments: CHF Do you want consulting provider notified?: Yes 11/26/23 11:31 Consult Physician Routine Consulting Provider: Rody Mccullough Consult Reason/Comments: fever Do you want consulting provider notified?: Yes 11/27/23 09:46 Consult Physician Stat Consulting Provider: Edwige Preston Consult Reason/Comments: elevated kidney function Do you want consulting provider notified?: Yes Primary care physician: [facility] Course: Chief Complaint: Short of breath 73-year-old male patient with a known history of nonischemic cardiomyopathy, ventricular tachycardia with previous ablation, AICD placement, hyperlipidemia, former smoker, chronic obstructive pulmonary disease. Patient was in the hospital over a month ago. Admitted with COPD exacerbation, pill induced esophagitis, noted to have silent aspiration and a PEG tube was placed. Patient now presents with increasing shortness of breath. Bit altered mentation. Nonproductive cough. The last few days. At home about 2 L of nasal cannula. Symptoms became much worse this morning around 6 AM. Patient had to be placed on BiPAP. When I came to see this patient he was rather lethargic tired not really able to give much of a history. November 19: Patient still remains overflow in the ER room ED-1. More awake. On BiPAP. Spoke to the nurse to make sure the PEG tube feeding is started. Medications through the PEG tube. Patient does live with his and daughter. On IV cefepime, IV vancomycin. IV Solu-Medrol. Bronchodilators. Will send off nasopharyngeal MRSA swab. Short of breath. Tired. Additional information from cardiology notes: Cardiac catheterization February 2023: Stenting of proximal and mid LAD. 2D echo in April 2023: EF 30 to 35%. November 20: Breathing better. Up in a recliner. On nasal cannula 2 L. Patient daughter at the bedside. Discussed. She wishes patient to remain full code. Discussed with dietitian or Stephanie at the bedside. Plan to change to bolus feeding. Fluids continue to be restricted. For low sodium. November 21: 2D echo showed a left ventricular apical thrombus. Started on IV heparin. Breathing a bit better. Tolerating diet. Reclining in bed. Getting PEG tube bolus feeding November 22: Saw the patient earlier today. Daughter at the bedside. Discussed. Dry mouth. Tired. Tolerating PEG tube feeding. Started on Eliquis today. Some spotting of blood on the sputum. Watch closely. I discussed CODE STATUS with the daughter day before. Wants the patient to be full code. Patient's prognosis is rather guarded. November 23: Patient moved to the ICU yesterday. delirium from hypoxia, and hypercapnia. Doing better this morning. Tolerating tube feeding. On BiPAP 14/6/35%. Sinus rhythm. Tired. In bed. IV Zosyn November 24: Patient remained on BiPAP overnight. Tired. Back on nasal cannula this morning. Tolerating tube feeding. IV Zosyn. She some shortness of breath. Hypernatremia. Stop normal saline. Changed to D5.4 560 cc an hour. November 25: Patient became hypotensive overnight. Oxygenation decreased. On BiPAP. Blood gases showed pCO2 retention. Was put on Levophed. Vasopressin. Also spiked a fever to 101. On IV Zosyn. Blood cultures are pending. Patient is getting Jevity PEG tube boluses 4 times a day. Sodium is gone up to 155. Changing IV fluids to D5.45 at 125 an hour. Also free fluid through the PEG tube increased to 75 cc twice daily before and after bolus feeding. Patient daughter at the bedside. Did speak at length to her. Did explain to her that I spoke with her 3 days ago patient prognosis is guarded. ID consulted. November 26: ICU. Remains hypotensive shock. On vasopressin, Levophed. Dose of Levophed doubled since this morning. On BiPAP. 14/6/50%. Does open eyes to lethargic. Tube feeding was held as residuals increased to 500 cc. Blood pressure running around 90-80 systolic. IV Zosyn. Generalized swelling. Oozing from skin. Patient is both the daughters and florin Garcia spoke to them at length about patient's very poor prognosis. We agreed to make the patient no code. Also agreeable for informational visit with hospice. Patient continues to do poorly. November 27: Patient deteriorated overnight. Both daughters were at the bedside. Patient made comfort care. Patient early hours of this morning's. Social history: Lives with his and daughter. Smoked for 20 years 4 to 5 cigarettes a day stopped at the age of 38. No alcohol. INVESTIGATIONS, reviewed in the clinical context: November 26: White count 29.6 hemoglobin 7.5 platelets 180 sodium 151 potassium 5.8 BUN 109 creatinine 1.80 procalcitonin 0.84 November 25: White count was 38.7 hemoglobin 9.5 platelets 245 sodium 135 potassium 5.2 creatinine 1.02. ABG: pH 7.37 pCO2 58 pO2 61 November 24: White count 20.2 hemoglobin 10.3 sodium 152 creatinine 0.71 November 23: White count 19.5 hemoglobin 10.6 potassium 4.5 BUN 50 creatinine 0.61 Limited 2D echocardiogram: Probable left ventricle apical thrombus. EF 30 to 35% Lumbar spine CT: Foraminal stenosis at L5-S1 and severe and L4-L5 November 21: White count 18.1 hemoglobin 10.5 platelets 241 potassium 4.3 creatinine 0.52 November 19: White count 26.2 hemoglobin 10.9 platelets 234 sodium 137 potassium 5 BUN 18 creatinine 0.53. Procalcitonin 1.11 November 18: White count 32.9 hemoglobin 14 platelets were 82 sodium 124 potassium 4.7 BUN 17 creatinine 0.45 Troponin I 0.012 ammonia less than 9 proBNP 1350 UA: Negative Influenza type A, B, RSV, COVID-19: Not detected ABG: pH 7.4 pCO2 58 pO2 62 EKG tracing personally reviewed by me-intraventricular conduction delay. Sinus rhythm. Chest x-ray film personally reviewed by me-cardiomegaly. Cannot rule out infiltrate Chest CTA: Negative for PE Cause of : COPD Coronary artery disease Assessment: -Acute asthma/COPD, in a [id number], causing respiratory failure: Not improving Xopenex. DuoNeb as needed IV Solu-Medrol 40 mg every 8. -Hypernatremia, free water deficit: Slow to respond g D5W, at, 125 cc an hour. -Hypotensive and septic shock: Worsening IV Levophed was increased since this morning IV vasopressin -Acute metabolic/hypoxic encephalopathy on presentation: Not improving -Left ventricular thrombus, Eliquis -Sepsis with spiking fever. IV Zosyn. Cultures pending ID following -Suspicious of bilateral basilar pneumonia suspect gram-negative organism: Better IV Zosyn -Acute on chronic hypoxic and hypercapnic respiratory failure: Slow to respond On BiPAP 50% - PEG tube placement on 10/15/2023. NPO by mouth Dysphagia with silent aspiration noted on modified barium swallow, High residual-tube feeding held today -Left vertebral artery stenosis history -Essential hypertension-currently hypotensive shock Entresto, Lopressor, -Left thyroid nodule measuring 2.9 cm, was to be followed up in the outpatient setting from last admission -Nonischemic cardiomyopathy/chronic congestive heart failure, EF 30-35% from April 2023 Entresto. Lopressor-hold. -CAD, with stent to LAD in February 2023 Aspirin. Lipitor. Plavix. - AICD-history of ventricular tachycardia status post ablation, status post -History of previous ventilatory dependent respiratory failure secondary to COPD exacerbations -History of brain hemorrhage while on blood thinners -DO NOT RESUSCITATE CODE STATUS changed to DNR. Increased dose of Levophed and on vasopressin. IV Zosyn. Blood pressure running low. Tube feeding held. Doing poorly. Advance care planning [November 27, 2023]: Discussed with patient's daughter Tyshawn at the bedside. Patient's overall condition was discussed. Patient not doing well. Lot of pressor support. Hypoalbuminemia. Sepsis picture. Failing renal function. Poor respiratory status. They have decided to proceed with DNR CODE STATUS. They are considering comfort measures. They have excepted informational visit for hospice in the meantime. Questions answered. Nurse was present. Time spent about 35 minutes for ACP Disposition: Patient Past Medical History Past Medical History: Asthma, COPD, Hyperlipidemia Additional Past Medical History / Comment(s): VTach, nonischemic cardiomyopathy, CHF, organized left ventricular apical clot, previous DVT ablation, asthma requiring intubation twice, BRAIN BLEED WHILE ON BLOOD THINNER RX 2009, cataracts bilaterally History of Any Multi-Drug Resistant Organisms: None Reported Past Surgical History: AICD, EPS, Pacemaker Additional Past Surgical History / Comment(s): 12/07/15 EPS wt VT ablation. Other surgical hx: BRAIN SURGERY FOLLOWING BLEED. AICD/PACEMAKER, [facility]. generator change, Defibrilator testing Past Anesthesia/Blood Transfusion Reactions: No Reported Reaction Type of Cardiac Device: Permanent Pacemaker, AICD Device Placement Date:: 2005 implanted with gen change 2012 Past Psychological History: No Psychological Hx Reported Smoking Status: Never smoker Past Alcohol Use History: None Reported Past Drug Use History: None Reported Plan - Discharge Summary Discharge Rx Participant: No New Discharge Prescriptions: Discontinued Montelukast [Singulair] 10 mg PO DAILY@1000 Spironolactone [Aldactone] 25 mg PO DAILY@1000 Levalbuterol Hfa Inhaler [Xopenex Hfa Inhaler] 1 puff INHALATION RT-Q6H PRN PRN Reason: Shortness Of Breath Levalbuterol Nebulized [Xopenex Nebulized] 1.25 mg INHALATION RT-QID Atorvastatin [Lipitor] 80 mg PO HS@2200 Sacubitril/Valsartan [Entresto 24 mg-26 mg Tablet] 1 tab PO BID@1000,2200 Aspirin EC [Ecotrin Low Dose] 81 mg PO HS@2200 Ezetimibe [Zetia] 10 mg PO DAILY@1000 Mexiletine HCl 200 mg PO TID@0600,1400,2200 Amiodarone [Cordarone] 200 mg PO DAILY@1000 Clopidogrel [Plavix] 75 mg PO DAILY@1000 predniSONE 10 mg PO DAILY@1000 Psyllium Husk 100% [Metamucil Packet] 6 gm PO BID@1000,2200 Metoprolol Tartrate [Lopressor] 12.5 mg PO BID@1000,2200 Discharge Disposition: - Preliminary Cause of Preliminary Cause of : COPD
== END 2023-11-28 10:04 | disposition expired | DRG 871 ==
LOC: EC 10:16 → 2SICU 14:19 → 3SCARD 11-20 09:26 → 2SICU 11-23 17:16
PROVIDERS: ADMIT Hospitalist; ATTEND Hospitalist
PROC: 5A09557 Assistance with Respiratory Ventilation, Greater than 96 Consecutive Hours, Continuous Positive Airway Pressure (ICD-10-PCS; principal; 2023-11-19)
PROC: 3E033XZ Introduction of Vasopressor into Peripheral Vein, Percutaneous Approach (ICD-10-PCS; 2023-11-26)
PROC: 02HV33Z Insertion of Infusion Device into Superior Vena Cava, Percutaneous Approach (ICD-10-PCS; 2023-11-27)
DX: A41.89 Other specified sepsis (principal); G93.41 Metabolic encephalopathy; J15.69 Pneumonia due to other Gram-negative bacteria; J96.21 Acute and chronic respiratory failure with hypoxia; J96.22 Acute and chronic respiratory failure with hypercapnia; J69.0 Pneumonitis due to inhalation of food and vomit; R65.21 Severe sepsis with septic shock; N17.0 Acute kidney failure with tubular necrosis; E87.1 Hypo-osmolality and hyponatremia; G93.1 Anoxic brain damage, not elsewhere classified; J44.1 Chronic obstructive pulmonary disease with (acute) exacerbation; J45.901 Unspecified asthma with (acute) exacerbation; I50.22 Chronic systolic (congestive) heart failure; E87.0 Hyperosmolality and hypernatremia; I47.20 Ventricular tachycardia, unspecified; I42.8 Other cardiomyopathies; J44.0 Chronic obstructive pulmonary disease with (acute) lower respiratory infection; Z99.11 Dependence on respirator [ventilator] status; F05 Delirium due to known physiological condition; Z66 Do not resuscitate; Z51.5 Encounter for palliative care; K20.80 Other esophagitis without bleeding; I11.0 Hypertensive heart disease with heart failure; J43.9 Emphysema, unspecified; M21.372 Foot drop, left foot; Z86.718 Personal history of other venous thrombosis and embolism; Z93.1 Gastrostomy status; Z88.5 Allergy status to narcotic agent; Z88.6 Allergy status to analgesic agent; D53.9 Nutritional anemia, unspecified; E78.5 Hyperlipidemia, unspecified; E86.1 Hypovolemia; E87.5 Hyperkalemia; E87.8 Other disorders of electrolyte and fluid balance, not elsewhere classified; R79.89 Other specified abnormal findings of blood chemistry; E88.09 Other disorders of plasma-protein metabolism, not elsewhere classified; G89.29 Other chronic pain; G93.89 Other specified disorders of brain; I25.10 Atherosclerotic heart disease of native coronary artery without angina pectoris; I25.5 Ischemic cardiomyopathy; I51.3 Intracardiac thrombosis, not elsewhere classified; E86.9 Volume depletion, unspecified; M48.061 Spinal stenosis, lumbar region without neurogenic claudication; I44.7 Left bundle-branch block, unspecified; I65.02 Occlusion and stenosis of left vertebral artery; M48.07 Spinal stenosis, lumbosacral region; R13.10 Dysphagia, unspecified; Z79.01 Long term (current) use of anticoagulants; Z79.02 Long term (current) use of antithrombotics/antiplatelets; Z79.4 Long term (current) use of insulin; Z79.52 Long term (current) use of systemic steroids; Z79.82 Long term (current) use of aspirin; Z79.899 Other long term (current) drug therapy; Z86.711 Personal history of pulmonary embolism; Z86.73 Personal history of transient ischemic attack (TIA), and cerebral infarction without residual deficits; Z95.5 Presence of coronary angioplasty implant and graft; Z86.79 Personal history of other diseases of the circulatory system; Z95.810 Presence of automatic (implantable) cardiac defibrillator; T50.905A Adverse effect of unspecified drugs, medicaments and biological substances, initial encounter; X58.XXXA Exposure to other specified factors, initial encounter; Z98.42 Cataract extraction status, left eye; Z98.41 Cataract extraction status, right eye
CPT/HCPCS: 36415; 36600; 70450; 71045; 71275; 72131; 80048; 80053; 80202; 81003; 82140; 82565; 82607; 82746; 82805; 83036; 83605; 83735; 83880; 83921; 83930; 84145; 84207; 84484; 85025; 85027; 85610; 85730; 86140; 86850; 86900; 86901; 86920; 87040; 87070; 87086; 87636; 93005; 93308; 94640; 94660; 94760; 96365; 96366; 96367; 96368; 96375; 96376; 99291